=== PATIENT | male | born 1980 | race Caucasian/White ===

== ENCOUNTER → 2017-01-08 | Outpatient (REF) | payer SELFPAY ==
[2017-01-08 18:07] LABS: ALBUMIN 3.7 GM/DL (3.2-5.2); ALBUMIN/GLOBULIN RATIO 0.95 (1.00-1.93); ALKALINE PHOSPHATASE 71 U/L (45-117); ALT/SGPT 24 U/L (12-78); ANION GAP 7 MEQ/L (8-16); AST/SGOT 15 U/L (15-37); BILIRUBIN,TOTAL 0.9 MG/DL (0.2-1.0); BLOOD UREA NITROGEN 18 MG/DL (7-18); CALCIUM LEVEL 9.2 MG/DL (8.5-10.1); CARBON DIOXIDE LEVEL 29 MEQ/L (21-32); CHLORIDE LEVEL 96 MEQ/L (98-107); CHOLESTEROL LEVEL 204 MG/DL (<200); CREATININE FOR GFR 1.25 MG/DL (0.70-1.30); GLOMERULAR FILTRATION RATE > 60.0 (>60); SODIUM LEVEL 132 MEQ/L (136-145); TOTAL PROTEIN 7.6 GM/DL (6.4-8.2); TRIGLYCERIDES LEVEL 128 MG/DL (<150)
[2017-01-08 18:24] LABS: GLUCOSE, FASTING 666 MG/DL (70-105); POTASSIUM SERUM 5.7 MEQ/L (3.5-5.1)
== END ==
LOC: M LAB REF 16:12
PROVIDERS: ATTEND Family Medicine Addiction Medicine
DX: E10.621 Type 1 diabetes mellitus with foot ulcer (principal)

== ENCOUNTER → 2017-01-27 | Outpatient (REF) | payer SELFPAY ==
[2017-01-27 18:34] LABS: ANION GAP 11 MEQ/L (8-16); BLOOD UREA NITROGEN 18 MG/DL (7-18); CALCIUM LEVEL 9.5 MG/DL (8.5-10.1); CARBON DIOXIDE LEVEL 28 MEQ/L (21-32); CHLORIDE LEVEL 86 MEQ/L (98-107); GLOMERULAR FILTRATION RATE > 60.0 (>60); POTASSIUM SERUM 5.1 MEQ/L (3.5-5.1); SODIUM LEVEL 125 MEQ/L (136-145)
[2017-01-27 18:41] LABS: GLUCOSE, FASTING 675 MG/DL (70-105)
== END ==
LOC: M LAB REF 17:37
PROVIDERS: ATTEND Family Medicine Addiction Medicine
DX: I10 Essential (primary) hypertension (principal)

== ENCOUNTER → 2017-01-28 | Outpatient (REF) | payer SELFPAY | LOC: M LAB REF 11:30 | PROVIDERS: ATTEND Surgery | DX: E10.621 Type 1 diabetes mellitus with foot ulcer (principal) ==

== ENCOUNTER → 2017-02-01 | Outpatient (CLI) | payer SELFPAY ==
--- NOTE | 2017-02-02 02:47 | REP ---
Clinical: Ulceration with history of diabetes mellitus. Technique: Post traumatic arthritic degenerative changes at the ankle noted including prior orthopedic fixation. Joint spaces through the foot are relatively intact and normal for age. No periosteal reaction noted. Surrounding soft tissues are grossly unremarkable. Impression: 1. 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 2. Remainder of the foot demonstrates relatively normal age appropriate changes. No periosteal reaction to suggest osteomyelitis related to diabetes and ulceration. Signed by Austin Alves MD 02/02/2017 02:38 A
== END ==
LOC: M RAD 15:45
PROVIDERS: ATTEND Surgery
DX: E10.621 Type 1 diabetes mellitus with foot ulcer (principal)

== ENCOUNTER → 2017-02-04 | Outpatient (REF) | payer SELFPAY ==
[2017-02-04 18:58] LABS: CALCIUM LEVEL 9.6 MG/DL (8.5-10.1); CREATININE FOR GFR 1.48 MG/DL (0.70-1.30); GLOMERULAR FILTRATION RATE 57.6 (>60); POTASSIUM SERUM 4.3 MEQ/L (3.5-5.1)
== END ==
LOC: M LAB REF 16:28
PROVIDERS: ATTEND Family Medicine Addiction Medicine
DX: N28.9 Disorder of kidney and ureter, unspecified (principal); E11.621 Type 2 diabetes mellitus with foot ulcer; I10 Essential (primary) hypertension

== ENCOUNTER → 2017-03-24 | Outpatient (REF) | payer SELFPAY | LOC: M LAB REF 12:45 | PROVIDERS: ATTEND Internal Medicine Nephrology | DX: N18.3 Chronic kidney disease, stage 3 (moderate) (principal); E11.65 Type 2 diabetes mellitus with hyperglycemia ==

== ENCOUNTER → 2017-03-30 | Outpatient (CLI) | payer SELFPAY ==
--- NOTE | 2017-03-30 14:25 | REP ---
Renal ultrasound: The kidneys are normal size. Right kidney measures 10.4 x 6.8 x 4.2 cm. Left kidney measures 10.9 x 5.2 x 6.8 cm. Renal cortical echogenicity is normal bilaterally. There are are no calculi, masses, cysts or hydronephrosis on the right on the left. Impression: Essentially negative renal ultrasound. Bladder ultrasound: The bladder is adequately distended. No bladder wall polyps or masses identifiable by ultrasound. Impression: Negative bladder ultrasound. Signed by Alexander Davis MD 03/30/2017 02:15 P
== END ==
LOC: M RAD 13:21
PROVIDERS: ATTEND Internal Medicine Nephrology
DX: E11.65 Type 2 diabetes mellitus with hyperglycemia (principal)

== ENCOUNTER → 2017-07-13 | Outpatient (REF) | payer SELFPAY ==
[2017-07-13 14:05] LABS: ALBUMIN 3.9 GM/DL (3.2-5.2); ALBUMIN/GLOBULIN RATIO 1.11 (1.00-1.93); ALKALINE PHOSPHATASE 52 U/L (45-117); ALT/SGPT 27 U/L (12-78); ANION GAP 9 MEQ/L (8-16); AST/SGOT 13 U/L (7-37); BILIRUBIN,TOTAL 1.1 MG/DL (0.2-1.0); BLOOD UREA NITROGEN 14 MG/DL (7-18); CALCIUM LEVEL 9.6 MG/DL (8.5-10.1); CARBON DIOXIDE LEVEL 28 MEQ/L (21-32); CHLORIDE LEVEL 97 MEQ/L (98-107); CHOLESTEROL LEVEL 219 MG/DL (<200); CREATININE FOR GFR 1.23 MG/DL (0.70-1.30); GLOMERULAR FILTRATION RATE > 60.0 (>60); POTASSIUM SERUM 4.7 MEQ/L (3.5-5.1); SODIUM LEVEL 134 MEQ/L (136-145); TOTAL PROTEIN 7.4 GM/DL (6.4-8.2); TRIGLYCERIDES LEVEL 219 MG/DL (<150)
[2017-07-13 14:06] LABS: GLUCOSE, FASTING 522 MG/DL (70-105)
== END ==
LOC: M LAB REF 13:31
PROVIDERS: ATTEND Family Medicine Addiction Medicine
DX: E10.621 Type 1 diabetes mellitus with foot ulcer (principal); L97.509 Non-pressure chronic ulcer of other part of unspecified foot with unspecified severity

== ENCOUNTER → 2017-09-07 | Outpatient (REF) | payer SELFPAY ==
[2017-09-07 14:00] LABS: BASO # 0.1 10^3/uL (0.0-0.2); BASO % 1.1 % (0.0-1.0); EOS # 0.1 10^3/uL (0.0-0.50); EOS % 1.5 % (0.0-3.0); HEMATOCRIT 35.5 % (42.0-52.0); IMMATURE GRANULOCYTE % 0.2 % (0-0); LYMPH % 20.7 % (24.0-44.0); MEAN CORPUSCULAR HEMOGLOBIN 29.3 pg (27.0-33.0); MEAN CORPUSCULAR HGB CONC 33.8 g/dl (32.0-36.5); MEAN CORPUSCULAR VOLUME 86.8 fl (80.0-96.0); MONO # 0.3 10^3/uL (0.0-0.8); MONO % 6.5 % (0.0-5.0); NEUTROPHILS # 3.3 10^3/uL (1.8-7.7); PLATELET COUNT, AUTOMATED 214 10^3/uL (150-450); RED BLOOD COUNT 4.09 10^6/uL (4.30-6.10); RED CELL DISTRIBUTION WIDTH 11.5 % (11.5-14.5); WHITE BLOOD COUNT 4.7 10^3/uL (4.0-10.0)
[2017-09-07 14:22] LABS: PROSTATIC SPECIFIC AG MONITOR 0.27 NG/ML (< 4.0)
[2017-09-07 14:29] LABS: TESTOSTERONE 247 NG/DL (241-827)
== END ==
LOC: M LAB REF 13:42
DX: N52.01 Erectile dysfunction due to arterial insufficiency (principal)

== ENCOUNTER → 2017-10-13 | Outpatient (REF) | payer SELFPAY ==
[2017-10-13 13:29] LABS: TESTOSTERONE 308 NG/DL (241-827)
== END ==
LOC: M LAB REF 12:35
DX: N52.01 Erectile dysfunction due to arterial insufficiency (principal)
CPT/HCPCS: 84403

== ENCOUNTER → 2017-12-03 | Outpatient (REF) | payer SELFPAY ==
[2017-12-03 13:43] LABS: TESTOSTERONE 328 NG/DL (241-827)
== END ==
LOC: M LAB REF 12:35
DX: N52.01 Erectile dysfunction due to arterial insufficiency (principal)

== ENCOUNTER 2017-12-07 15:50 | Inpatient (IN) | payer SELFPAY ==
[2017-12-07] MEDS: ONDANSETRON 4MG/2ML VIAL (J2405) IV (18:28)
[2017-12-07] MEDS: NS 1,000 ML IV ×2 (18:28→22:00)
[2017-12-07] MEDS: MORPHINE 4 MG/ML 1ML VIAL/SYRINGE (J2270) IV ×2 (18:30→22:10)
[2017-12-07 18:41] LABS: BASO % 0.3 % (0.0-1.0); EOS # 0.1 10^3/uL (0.0-0.50); EOS % 0.5 % (0.0-3.0); HEMATOCRIT 33.2 % (42.0-52.0); HEMOGLOBIN 11.2 g/dl (13.5-17.5); IMMATURE GRANULOCYTE % 0.3 % (0-3.0); LYMPH % 8.1 % (24.0-44.0); MEAN CORPUSCULAR HEMOGLOBIN 29.9 pg (27.0-33.0); MEAN CORPUSCULAR HGB CONC 33.7 g/dl (32.0-36.5); MEAN CORPUSCULAR VOLUME 88.8 fl (80.0-96.0); MONO % 8.7 % (0.0-5.0); NEUTROPHILS # 9.7 10^3/uL (1.8-7.7); NEUTROPHILS % 82.1 % (36.0-66.0); PLATELET COUNT, AUTOMATED 284 10^3/uL (150-450); RED BLOOD COUNT 3.74 10^6/uL (4.30-6.10); WHITE BLOOD COUNT 11.8 10^3/uL (4.0-10.0)
[2017-12-07 18:45] LABS: APPEARANCE, URINE CLEAR (CLEAR); BACTERIA, URINE AUTO NEGATIVE (NEGATIVE); BILIRUBIN, URINE AUTO NEGATIVE (NEGATIVE); BLOOD, URINE BLOOD 1+ (NEGATIVE); COLOR, URINE YELLOW (YELLOW); GLUCOSE, URINE (UA) AUTO 3+ mg/dL (NEGATIVE); KETONE, URINE AUTO NEGATIVE (NEGATIVE); LEUKOCYTE ESTERASE, URINE AUTO NEGATIVE (NEGATIVE); NITRITE, URINE AUTO NEGATIVE (NEGATIVE); PROTEIN, URINE AUTO NEGATIVE (NEGATIVE); RBC, URINE AUTO 2 /HPF (0-3); SPECIFIC GRAVITY URINE AUTO 1.016 (1.002-1.035); SQUAMOUS EPITHELIAL CELL UR AU 0 /HPF (0-6); UROBILINOGEN, URINE AUTO 0.2 mg/dL (0.0-2.0); WBC, URINE AUTO 1 /HPF (0-3)
[2017-12-07 19:02] LABS: ANION GAP 6 MEQ/L (8-16); BLOOD UREA NITROGEN 15 MG/DL (7-18); CALCIUM LEVEL 9.3 MG/DL (8.5-10.1); CARBON DIOXIDE LEVEL 29 MEQ/L (21-32); CHLORIDE LEVEL 98 MEQ/L (98-107); CREATININE FOR GFR 1.44 MG/DL (0.70-1.30); GLOMERULAR FILTRATION RATE 59.1 (>60); GLUCOSE, FASTING 392 MG/DL (70-100); POTASSIUM SERUM 4.9 MEQ/L (3.5-5.1); SODIUM LEVEL 133 MEQ/L (136-145)
[2017-12-07 19:05] LABS: LACTIC ACID SEPSIS PROTOCOL 1.4 MMOL/L (0.4-2.0)
[2017-12-07 19:48] LABS: ERYTHROCYTE SEDIMENTATION RATE 68 mm/hr (0-15)
[2017-12-08] MEDS ORDERED: GLUCOSE 4 GM CHEW TABLET PO (01:30)
[2017-12-08] MEDS ORDERED: GLUCAGON FOR INJ 1 MG VIAL (J1610) SC (01:30)
[2017-12-08] MEDS ORDERED: DEXTROSE 50% 50 ML SYRINGE IV (01:30)
[2017-12-08 01:44] LABS: BASO % 0.3 % (0.0-1.0); EOS # 0.1 10^3/uL (0.0-0.50); EOS % 0.8 % (0.0-3.0); HEMATOCRIT 29.2 % (42.0-52.0); HEMOGLOBIN 9.9 g/dl (13.5-17.5); IMMATURE GRANULOCYTE % 0.2 % (0-3.0); LYMPH # 1.3 10^3/uL (1.5-4.5); LYMPH % 14.4 % (24.0-44.0); MEAN CORPUSCULAR HEMOGLOBIN 30.2 pg (27.0-33.0); MEAN CORPUSCULAR HGB CONC 33.9 g/dl (32.0-36.5); MONO # 0.8 10^3/uL (0.0-0.8); MONO % 8.9 % (0.0-5.0); NEUTROPHILS # 6.6 10^3/uL (1.8-7.7); NEUTROPHILS % 75.4 % (36.0-66.0); PLATELET COUNT, AUTOMATED 240 10^3/uL (150-450); RED BLOOD COUNT 3.28 10^6/uL (4.30-6.10); RED CELL DISTRIBUTION WIDTH 11.9 % (11.5-14.5); WHITE BLOOD COUNT 8.8 10^3/uL (4.0-10.0)
[2017-12-08] MEDS: NS 1,000 ML IV ×2 (02:02→11:18)
[2017-12-08] MEDS: GABAPENTIN 300 MG CAP PO ×4 (02:04→20:06)
[2017-12-08] MEDS: VANCOMYCIN HCL 1,000 MG, VIAL MATE ADAPTER 1 EACH in D5W 250 ML IV ×4 (02:04→21:25)
[2017-12-08 02:06] LABS: BEDSIDE GLUCOSE 384 MG/DL (70-105)
[2017-12-08 02:34] LABS: ESTIMATED AVERAGE GLUCOSE 240 MG/DL (60-110)
[2017-12-08 02:38] LABS: LACTIC ACID SEPSIS PROTOCOL 0.8 MMOL/L (0.4-2.0)
[2017-12-08] MEDS: HumaLOG INSULIN (NovoLOG) PER UNIT SC ×5 (02:55→20:31)
[2017-12-08] MEDS: ACETAMINOPHEN TAB 650MG DOSE (2X325MG) PO ×2 (03:01→20:07)
[2017-12-08 03:54] LABS: APPEARANCE, URINE CLEAR (CLEAR); BACTERIA, URINE AUTO NEGATIVE (NEGATIVE); BILIRUBIN, URINE AUTO NEGATIVE (NEGATIVE); BLOOD, URINE BLOOD 1+ (NEGATIVE); COLOR, URINE YELLOW (YELLOW); GLUCOSE, URINE (UA) AUTO 3+ mg/dL (NEGATIVE); KETONE, URINE AUTO TRACE mg/dL (NEGATIVE); LEUKOCYTE ESTERASE, URINE AUTO NEGATIVE (NEGATIVE); NITRITE, URINE AUTO NEGATIVE (NEGATIVE); PROTEIN, URINE AUTO NEGATIVE (NEGATIVE); RBC, URINE AUTO 1 /HPF (0-3); SPECIFIC GRAVITY URINE AUTO 1.016 (1.002-1.035); SQUAMOUS EPITHELIAL CELL UR AU 0 /HPF (0-6); UROBILINOGEN, URINE AUTO 0.2 mg/dL (0.0-2.0); WBC, URINE AUTO 0 /HPF (0-3)
[2017-12-08] MEDS: LevoFLOXacin IV 500 MG in APPROPRIATE DILUENT 1 EA IV (04:13)
[2017-12-08 04:28] LABS: CREATININE, URINE 79.8 MG/DL; MALB URINE SIEMENS 50.9 MG/L; MAU/CREAT RATIO 63.7 MCG/MG (0.0-30.0)
[2017-12-08] MEDS: HEPARIN SOD (PORCINE) 5000 UNITS/ML VIAL SC ×3 (06:15→21:24)
[2017-12-08 08:00] LABS: BASO % 0.4 % (0.0-1.0); EOS # 0.1 10^3/uL (0.0-0.50); HEMATOCRIT 30.2 % (42.0-52.0); HEMOGLOBIN 10.1 g/dl (13.5-17.5); IMMATURE GRANULOCYTE % 0.4 % (0-3.0); LYMPH # 0.8 10^3/uL (1.5-4.5); LYMPH % 9.8 % (24.0-44.0); MEAN CORPUSCULAR HGB CONC 33.4 g/dl (32.0-36.5); MEAN CORPUSCULAR VOLUME 89.6 fl (80.0-96.0); MONO # 0.8 10^3/uL (0.0-0.8); MONO % 9.3 % (0.0-5.0); NEUTROPHILS # 6.5 10^3/uL (1.8-7.7); NEUTROPHILS % 79.1 % (36.0-66.0); PLATELET COUNT, AUTOMATED 240 10^3/uL (150-450); RED BLOOD COUNT 3.37 10^6/uL (4.30-6.10); RED CELL DISTRIBUTION WIDTH 11.9 % (11.5-14.5); WHITE BLOOD COUNT 8.3 10^3/uL (4.0-10.0)
[2017-12-08 08:24] LABS: ANION GAP 5 MEQ/L (8-16); BLOOD UREA NITROGEN 11 MG/DL (7-18); CALCIUM LEVEL 8.6 MG/DL (8.5-10.1); CARBON DIOXIDE LEVEL 29 MEQ/L (21-32); CHLORIDE LEVEL 102 MEQ/L (98-107); CREATININE FOR GFR 1.03 MG/DL (0.70-1.30); GLOMERULAR FILTRATION RATE > 60.0 (>60); GLUCOSE, FASTING 285 MG/DL (70-100); POTASSIUM SERUM 5.1 MEQ/L (3.5-5.1); SODIUM LEVEL 136 MEQ/L (136-145)
[2017-12-08 08:39] LABS: BEDSIDE GLUCOSE 263 MG/DL (70-105)
[2017-12-08] MEDS: OMEPRAZOLE 20 MG CAP PO (08:50)
[2017-12-08] MEDS: LISINOPRIL 10 MG TAB PO (08:51)
[2017-12-08] MEDS: LEVEMIR (INSULIN DETEMIR) 1 UNITS/0.01ML SC (08:51)
[2017-12-08] MEDS: PERCOCET 5MG/325MG TAB PO ×3 (09:29→21:25)
[2017-12-08 11:41] LABS: BEDSIDE GLUCOSE 278 MG/DL (70-105)
[2017-12-08 17:01] LABS: BEDSIDE GLUCOSE 165 MG/DL (70-105)
[2017-12-08] MEDS: ONDANSETRON 4 MG TAB (S0181) PO (20:06)
[2017-12-08 20:07] LABS: BEDSIDE GLUCOSE 161 MG/DL (70-105)
[2017-12-08 21:36] LABS: VANCOMYCIN LEVEL TROUGH 17.5 UG/ML (10.0-20.0)
[2017-12-08] MEDS: CEPACOL LOZENGE PO (22:24)
[2017-12-09] MEDS: LevoFLOXacin IV 500 MG in APPROPRIATE DILUENT 1 EA IV (03:48)
[2017-12-09] MEDS: PERCOCET 5MG/325MG TAB PO ×3 (03:49→20:57)
[2017-12-09] MEDS: VANCOMYCIN HCL 1,000 MG, VIAL MATE ADAPTER 1 EACH in D5W 250 ML IV ×3 (05:04→22:17)
[2017-12-09] MEDS: HEPARIN SOD (PORCINE) 5000 UNITS/ML VIAL SC ×3 (05:04→22:17)
[2017-12-09 06:19] LABS: BASO % 0.4 % (0.0-1.0); EOS # 0.1 10^3/uL (0.0-0.50); EOS % 1.2 % (0.0-3.0); HEMATOCRIT 28.2 % (42.0-52.0); HEMOGLOBIN 9.5 g/dl (13.5-17.5); IMMATURE GRANULOCYTE % 0.4 % (0-3.0); LYMPH # 0.8 10^3/uL (1.5-4.5); MEAN CORPUSCULAR HEMOGLOBIN 29.6 pg (27.0-33.0); MEAN CORPUSCULAR HGB CONC 33.7 g/dl (32.0-36.5); MEAN CORPUSCULAR VOLUME 87.9 fl (80.0-96.0); MONO # 0.7 10^3/uL (0.0-0.8); MONO % 8.7 % (0.0-5.0); NEUTROPHILS # 6.8 10^3/uL (1.8-7.7); NEUTROPHILS % 80.3 % (36.0-66.0); PLATELET COUNT, AUTOMATED 223 10^3/uL (150-450); RED BLOOD COUNT 3.21 10^6/uL (4.30-6.10); RED CELL DISTRIBUTION WIDTH 11.8 % (11.5-14.5); WHITE BLOOD COUNT 8.5 10^3/uL (4.0-10.0)
[2017-12-09 06:46] LABS: ALBUMIN 2.6 GM/DL (3.2-5.2); ALBUMIN/GLOBULIN RATIO 0.63 (1.00-1.93); ALKALINE PHOSPHATASE 88 U/L (45-117); ALT/SGPT 20 U/L (12-78); ANION GAP 8 MEQ/L (8-16); AST/SGOT 12 U/L (7-37); BILIRUBIN,TOTAL 0.8 MG/DL (0.2-1.0); BLOOD UREA NITROGEN 8 MG/DL (7-18); CALCIUM LEVEL 8.4 MG/DL (8.5-10.1); CARBON DIOXIDE LEVEL 28 MEQ/L (21-32); CHLORIDE LEVEL 99 MEQ/L (98-107); CREATININE FOR GFR 1.08 MG/DL (0.70-1.30); GLOMERULAR FILTRATION RATE > 60.0 (>60); GLUCOSE, FASTING 337 MG/DL (70-100); MAGNESIUM LEVEL 1.6 MG/DL (1.8-2.4); PHOSPHORUS LEVEL 3.7 MG/DL (2.5-4.9); POTASSIUM SERUM 4.3 MEQ/L (3.5-5.1); SODIUM LEVEL 135 MEQ/L (136-145); TOTAL PROTEIN 6.7 GM/DL (6.4-8.2)
[2017-12-09] MEDS: GABAPENTIN 300 MG CAP PO ×3 (08:53→20:56)
[2017-12-09] MEDS: OMEPRAZOLE 20 MG CAP PO (08:53)
[2017-12-09] MEDS: LISINOPRIL 10 MG TAB PO (08:54)
[2017-12-09] MEDS: LEVEMIR (INSULIN DETEMIR) 1 UNITS/0.01ML SC (08:55)
[2017-12-09] MEDS: HumaLOG INSULIN (NovoLOG) PER UNIT SC ×4 (08:57→20:44)
[2017-12-09] MEDS: MAG SULF 1GM/100ML (MAG RUN) 1 GM in APPROPRIATE DILUENT 1 EA IV (08:58)
[2017-12-09 11:54] LABS: BEDSIDE GLUCOSE 270 MG/DL (70-105)
[2017-12-09] MEDS ORDERED: PROHANCE 279.3MG/ML 15ML VIAL (A9576) As Ordered (12:49)
[2017-12-09 16:52] LABS: BEDSIDE GLUCOSE 90 MG/DL (70-105)
[2017-12-09] MEDS: ACETAMINOPHEN TAB 650MG DOSE (2X325MG) PO (17:27)
[2017-12-09 20:30] LABS: BEDSIDE GLUCOSE 138 MG/DL (70-105)
[2017-12-10] MEDS: LevoFLOXacin IV 500 MG in APPROPRIATE DILUENT 1 EA IV (03:39)
[2017-12-10] MEDS: VANCOMYCIN HCL 1,000 MG, VIAL MATE ADAPTER 1 EACH in D5W 250 ML IV ×3 (05:42→21:37)
[2017-12-10] MEDS: HEPARIN SOD (PORCINE) 5000 UNITS/ML VIAL SC ×3 (05:42→21:37)
[2017-12-10 06:06] LABS: BASO % 0.3 % (0.0-1.0); EOS # 0.1 10^3/uL (0.0-0.50); EOS % 1.1 % (0.0-3.0); HEMATOCRIT 27.8 % (42.0-52.0); HEMOGLOBIN 9.5 g/dl (13.5-17.5); IMMATURE GRANULOCYTE % 0.3 % (0-3.0); LYMPH # 0.7 10^3/uL (1.5-4.5); LYMPH % 10.2 % (24.0-44.0); MEAN CORPUSCULAR HGB CONC 34.2 g/dl (32.0-36.5); MEAN CORPUSCULAR VOLUME 87.7 fl (80.0-96.0); MONO # 0.6 10^3/uL (0.0-0.8); MONO % 9.1 % (0.0-5.0); NEUTROPHILS # 5.1 10^3/uL (1.8-7.7); PLATELET COUNT, AUTOMATED 242 10^3/uL (150-450); RED BLOOD COUNT 3.17 10^6/uL (4.30-6.10); RED CELL DISTRIBUTION WIDTH 11.6 % (11.5-14.5); WHITE BLOOD COUNT 6.5 10^3/uL (4.0-10.0)
[2017-12-10] MEDS: PERCOCET 5MG/325MG TAB PO ×3 (06:15→19:02)
[2017-12-10 06:20] LABS: ALBUMIN 2.7 GM/DL (3.2-5.2); ALBUMIN/GLOBULIN RATIO 0.61 (1.00-1.93); ALKALINE PHOSPHATASE 93 U/L (45-117); ALT/SGPT 17 U/L (12-78); ANION GAP 6 MEQ/L (8-16); AST/SGOT 12 U/L (7-37); BILIRUBIN,TOTAL 0.5 MG/DL (0.2-1.0); BLOOD UREA NITROGEN 11 MG/DL (7-18); CALCIUM LEVEL 8.9 MG/DL (8.5-10.1); CARBON DIOXIDE LEVEL 29 MEQ/L (21-32); CHLORIDE LEVEL 96 MEQ/L (98-107); CREATININE FOR GFR 1.15 MG/DL (0.70-1.30); GLOMERULAR FILTRATION RATE > 60.0 (>60); POTASSIUM SERUM 4.6 MEQ/L (3.5-5.1); SODIUM LEVEL 131 MEQ/L (136-145); TOTAL PROTEIN 7.1 GM/DL (6.4-8.2)
[2017-12-10 06:27] LABS: GLUCOSE, FASTING 429 MG/DL (70-100)
[2017-12-10] MEDS: HumaLOG INSULIN (NovoLOG) PER UNIT SC ×4 (07:26→20:32)
[2017-12-10] MEDS: OMEPRAZOLE 20 MG CAP PO (07:27)
[2017-12-10] MEDS: GABAPENTIN 300 MG CAP PO ×3 (07:27→21:37)
[2017-12-10] MEDS: LISINOPRIL 10 MG TAB PO (07:27)
[2017-12-10] MEDS: LEVEMIR (INSULIN DETEMIR) 1 UNITS/0.01ML SC (07:28)
[2017-12-10] MEDS: NS 1,000 ML IV ×3 (08:15→16:15)
[2017-12-10 11:50] LABS: BEDSIDE GLUCOSE 261 MG/DL (70-105)
[2017-12-10 12:02] LABS: MAGNESIUM LEVEL 2.2 MG/DL (1.8-2.4)
[2017-12-10 17:00] LABS: BEDSIDE GLUCOSE 225 MG/DL (70-105)
[2017-12-10 20:39] LABS: BEDSIDE GLUCOSE 181 MG/DL (70-105)
[2017-12-11] MEDS: LevoFLOXacin IV 500 MG in APPROPRIATE DILUENT 1 EA IV (03:27)
[2017-12-11] MEDS: PERCOCET 5MG/325MG TAB PO ×3 (04:37→21:06)
[2017-12-11 05:06] LABS: BASO % 0.5 % (0.0-1.0); EOS # 0.1 10^3/uL (0.0-0.50); EOS % 1.5 % (0.0-3.0); HEMATOCRIT 26.4 % (42.0-52.0); HEMOGLOBIN 9.2 g/dl (13.5-17.5); IMMATURE GRANULOCYTE % 0.2 % (0-3.0); LYMPH # 0.9 10^3/uL (1.5-4.5); LYMPH % 14.3 % (24.0-44.0); MEAN CORPUSCULAR HEMOGLOBIN 30.4 pg (27.0-33.0); MEAN CORPUSCULAR HGB CONC 34.8 g/dl (32.0-36.5); MEAN CORPUSCULAR VOLUME 87.1 fl (80.0-96.0); MONO # 0.7 10^3/uL (0.0-0.8); MONO % 11.1 % (0.0-5.0); NEUTROPHILS # 4.4 10^3/uL (1.8-7.7); NEUTROPHILS % 72.4 % (36.0-66.0); PLATELET COUNT, AUTOMATED 247 10^3/uL (150-450); RED BLOOD COUNT 3.03 10^6/uL (4.30-6.10); RED CELL DISTRIBUTION WIDTH 11.6 % (11.5-14.5)
[2017-12-11 05:28] LABS: ALBUMIN 2.8 GM/DL (3.2-5.2); ALBUMIN/GLOBULIN RATIO 0.72 (1.00-1.93); ALKALINE PHOSPHATASE 133 U/L (45-117); ALT/SGPT 33 U/L (12-78); ANION GAP 8 MEQ/L (8-16); AST/SGOT 53 U/L (7-37); BILIRUBIN,TOTAL 0.6 MG/DL (0.2-1.0); BLOOD UREA NITROGEN 7 MG/DL (7-18); CALCIUM LEVEL 8.5 MG/DL (8.5-10.1); CARBON DIOXIDE LEVEL 27 MEQ/L (21-32); CHLORIDE LEVEL 98 MEQ/L (98-107); CREATININE FOR GFR 1.09 MG/DL (0.70-1.30); GLOMERULAR FILTRATION RATE > 60.0 (>60); GLUCOSE, FASTING 343 MG/DL (70-100); POTASSIUM SERUM 4.5 MEQ/L (3.5-5.1); SODIUM LEVEL 133 MEQ/L (136-145); TOTAL PROTEIN 6.7 GM/DL (6.4-8.2); VANCOMYCIN LEVEL TROUGH 19.9 UG/ML (10.0-20.0)
[2017-12-11] MEDS: VANCOMYCIN HCL 1,000 MG, VIAL MATE ADAPTER 1 EACH in D5W 250 ML IV ×3 (05:35→21:48)
[2017-12-11] MEDS: HEPARIN SOD (PORCINE) 5000 UNITS/ML VIAL SC ×3 (05:35→21:06)
[2017-12-11] MEDS: ONDANSETRON 4 MG TAB (S0181) PO ×2 (05:35→21:06)
[2017-12-11] MEDS: SENNA 8.6 MG TAB (SENOKOT) PO (06:57)
[2017-12-11 07:01] LABS: BEDSIDE GLUCOSE 413 MG/DL (70-105)
[2017-12-11] MEDS: HumaLOG INSULIN (NovoLOG) PER UNIT SC ×4 (08:07→20:17)
[2017-12-11] MEDS: LISINOPRIL 10 MG TAB PO (08:08)
[2017-12-11] MEDS: OMEPRAZOLE 20 MG CAP PO (08:08)
[2017-12-11] MEDS: GABAPENTIN 300 MG CAP PO ×3 (08:08→21:05)
[2017-12-11] MEDS: LEVEMIR (INSULIN DETEMIR) 1 UNITS/0.01ML SC (08:08)
[2017-12-11 11:50] LABS: BEDSIDE GLUCOSE 273 MG/DL (70-105)
[2017-12-11 16:54] LABS: BEDSIDE GLUCOSE 197 MG/DL (70-105)
[2017-12-12] MEDS: LevoFLOXacin IV 500 MG in APPROPRIATE DILUENT 1 EA IV (03:29)
[2017-12-12] MEDS: HEPARIN SOD (PORCINE) 5000 UNITS/ML VIAL SC ×3 (05:43→21:17)
[2017-12-12] MEDS: VANCOMYCIN HCL 1,000 MG, VIAL MATE ADAPTER 1 EACH in D5W 250 ML IV ×2 (05:44→21:18)
[2017-12-12 05:55] LABS: BASO % 0.3 % (0.0-1.0); EOS # 0.1 10^3/uL (0.0-0.50); EOS % 1.6 % (0.0-3.0); HEMATOCRIT 25.2 % (42.0-52.0); HEMOGLOBIN 8.6 g/dl (13.5-17.5); IMMATURE GRANULOCYTE % 0.2 % (0-3.0); LYMPH # 0.9 10^3/uL (1.5-4.5); LYMPH % 15.4 % (24.0-44.0); MEAN CORPUSCULAR HEMOGLOBIN 29.9 pg (27.0-33.0); MEAN CORPUSCULAR HGB CONC 34.1 g/dl (32.0-36.5); MEAN CORPUSCULAR VOLUME 87.5 fl (80.0-96.0); MONO # 0.7 10^3/uL (0.0-0.8); MONO % 12.6 % (0.0-5.0); NEUTROPHILS % 69.9 % (36.0-66.0); PLATELET COUNT, AUTOMATED 232 10^3/uL (150-450); RED BLOOD COUNT 2.88 10^6/uL (4.30-6.10); RED CELL DISTRIBUTION WIDTH 11.6 % (11.5-14.5); WHITE BLOOD COUNT 5.8 10^3/uL (4.0-10.0)
[2017-12-12] MEDS: PERCOCET 5MG/325MG TAB PO ×3 (05:55→21:42)
[2017-12-12 06:23] LABS: ALBUMIN 2.5 GM/DL (3.2-5.2); ALBUMIN/GLOBULIN RATIO 0.63 (1.00-1.93); ALKALINE PHOSPHATASE 113 U/L (45-117); ALT/SGPT 28 U/L (12-78); ANION GAP 7 MEQ/L (8-16); AST/SGOT 25 U/L (7-37); BILIRUBIN,TOTAL 0.6 MG/DL (0.2-1.0); BLOOD UREA NITROGEN 10 MG/DL (7-18); CALCIUM LEVEL 8.6 MG/DL (8.5-10.1); CARBON DIOXIDE LEVEL 27 MEQ/L (21-32); CHLORIDE LEVEL 97 MEQ/L (98-107); CREATININE FOR GFR 1.25 MG/DL (0.70-1.30); GLOMERULAR FILTRATION RATE > 60.0 (>60); GLUCOSE, FASTING 383 MG/DL (70-100); POTASSIUM SERUM 4.5 MEQ/L (3.5-5.1); SODIUM LEVEL 131 MEQ/L (136-145); TOTAL PROTEIN 6.5 GM/DL (6.4-8.2)
[2017-12-12] MEDS: HumaLOG INSULIN (NovoLOG) PER UNIT SC ×4 (08:14→21:00)
[2017-12-12] MEDS: NS 1,000 ML IV (08:15)
[2017-12-12] MEDS: GABAPENTIN 300 MG CAP PO ×3 (08:16→21:17)
[2017-12-12] MEDS: OMEPRAZOLE 20 MG CAP PO (08:16)
[2017-12-12] MEDS: LISINOPRIL 10 MG TAB PO ×2 (08:16→13:34)
[2017-12-12] MEDS: LEVEMIR (INSULIN DETEMIR) 1 UNITS/0.01ML SC (08:16)
[2017-12-12 09:35] LABS: BEDSIDE GLUCOSE 132 MG/DL (70-105)
[2017-12-12 10:16] LABS: VANCOMYCIN LEVEL TROUGH 25.4 UG/ML (10.0-20.0)
[2017-12-12] MEDS ORDERED: MIDAZOLAM INJ 2 MG/2 ML VIAL (J2250) As Ordered (14:57)
[2017-12-12] MEDS ORDERED: LIDOCAINE 2% INJ 100 MG/5 ML SDV (FOR ANES.) As Ordered (14:57)
[2017-12-12] MEDS ORDERED: PROPOFOL 200 MG/20 ML VIAL As Ordered (14:57)
[2017-12-12] MEDS ORDERED: fentaNYL 100 MCG/2 ML INJECTION (J3010) As Ordered (14:57)
[2017-12-12] MEDS: LIDOCAINE 1% SDV INJ 30 ML VIAL As Ordered (14:59)
[2017-12-12] MEDS: BUPIVACAINE HCL 0.5% 30 ML VIAL As Ordered (14:59)
[2017-12-12] MEDS ORDERED: ONDANSETRON 4MG/2ML VIAL (J2405) IV (16:00)
[2017-12-12] MEDS ORDERED: fentaNYL 100 MCG/2 ML INJECTION (J3010) IV (16:00)
[2017-12-12] MEDS ORDERED: PERCOCET 5MG/325MG TAB PO (16:00)
[2017-12-12] MEDS: LR 1,000 ML IV (16:00)
[2017-12-12 16:51] LABS: BEDSIDE GLUCOSE 131 MG/DL (70-105)
[2017-12-12] MEDS: ONDANSETRON 4 MG TAB (S0181) PO (17:21)
[2017-12-12 21:37] LABS: BEDSIDE GLUCOSE 186 MG/DL (70-105)
[2017-12-12] MEDS: METOPROLOL TART 25 MG TABLET PO (21:40)
[2017-12-13] MEDS: LevoFLOXacin IV 500 MG in APPROPRIATE DILUENT 1 EA IV (04:42)
[2017-12-13] MEDS: HEPARIN SOD (PORCINE) 5000 UNITS/ML VIAL SC ×3 (05:50→21:15)
[2017-12-13] MEDS: PERCOCET 5MG/325MG TAB PO ×3 (05:51→19:46)
[2017-12-13 07:03] LABS: BASO % 0.3 % (0.0-1.0); EOS # 0.1 10^3/uL (0.0-0.50); EOS % 1.5 % (0.0-3.0); HEMOGLOBIN 8.3 g/dl (13.5-17.5); IMMATURE GRANULOCYTE % 0.3 % (0-3.0); LYMPH # 0.7 10^3/uL (1.5-4.5); LYMPH % 12.5 % (24.0-44.0); MEAN CORPUSCULAR HEMOGLOBIN 30.2 pg (27.0-33.0); MEAN CORPUSCULAR HGB CONC 34.6 g/dl (32.0-36.5); MEAN CORPUSCULAR VOLUME 87.3 fl (80.0-96.0); MONO # 0.7 10^3/uL (0.0-0.8); MONO % 11.7 % (0.0-5.0); NEUTROPHILS # 4.3 10^3/uL (1.8-7.7); NEUTROPHILS % 73.7 % (36.0-66.0); PLATELET COUNT, AUTOMATED 279 10^3/uL (150-450); RED BLOOD COUNT 2.75 10^6/uL (4.30-6.10); RED CELL DISTRIBUTION WIDTH 11.9 % (11.5-14.5); WHITE BLOOD COUNT 5.8 10^3/uL (4.0-10.0)
[2017-12-13 07:24] LABS: ALBUMIN 2.7 GM/DL (3.2-5.2); ALBUMIN/GLOBULIN RATIO 0.69 (1.00-1.93); ALKALINE PHOSPHATASE 133 U/L (45-117); ALT/SGPT 30 U/L (12-78); ANION GAP 7 MEQ/L (8-16); AST/SGOT 31 U/L (7-37); BILIRUBIN,TOTAL 0.4 MG/DL (0.2-1.0); BLOOD UREA NITROGEN 10 MG/DL (7-18); C REACTIVE PROTEIN QUANTITATIV 9.79 MG/DL (0.00-0.30); CALCIUM LEVEL 8.7 MG/DL (8.5-10.1); CARBON DIOXIDE LEVEL 27 MEQ/L (21-32); CHLORIDE LEVEL 101 MEQ/L (98-107); CREATININE FOR GFR 1.37 MG/DL (0.70-1.30); GLOMERULAR FILTRATION RATE > 60.0 (>60); GLUCOSE, FASTING 190 MG/DL (70-100); POTASSIUM SERUM 4.4 MEQ/L (3.5-5.1); SODIUM LEVEL 135 MEQ/L (136-145); TOTAL PROTEIN 6.6 GM/DL (6.4-8.2)
[2017-12-13 08:04] LABS: BEDSIDE GLUCOSE 460 MG/DL (70-105)
[2017-12-13] MEDS ORDERED: LISINOPRIL 20 MG TAB PO (09:00)
[2017-12-13] MEDS: VANCOMYCIN HCL 1,000 MG, VIAL MATE ADAPTER 1 EACH in D5W 250 ML IV ×2 (09:06→21:15)
[2017-12-13] MEDS: OMEPRAZOLE 20 MG CAP PO (09:07)
[2017-12-13] MEDS: GABAPENTIN 300 MG CAP PO ×3 (09:07→21:14)
[2017-12-13] MEDS: NS 1,000 ML IV (09:07)
[2017-12-13] MEDS: LEVEMIR (INSULIN DETEMIR) 1 UNITS/0.01ML SC (09:08)
[2017-12-13] MEDS: HumaLOG INSULIN (NovoLOG) PER UNIT SC ×4 (09:09→21:18)
[2017-12-13 12:14] LABS: BEDSIDE GLUCOSE 318 MG/DL (70-105)
[2017-12-13 18:13] LABS: BEDSIDE GLUCOSE 98 MG/DL (70-105)
[2017-12-13 21:58] LABS: BEDSIDE GLUCOSE 162 MG/DL (70-105)
[2017-12-14] MEDS: ONDANSETRON 4 MG TAB (S0181) PO (03:40)
[2017-12-14] MEDS: PERCOCET 5MG/325MG TAB PO ×3 (03:41→20:13)
[2017-12-14] MEDS: LevoFLOXacin IV 500 MG in APPROPRIATE DILUENT 1 EA IV (04:50)
[2017-12-14] MEDS: HEPARIN SOD (PORCINE) 5000 UNITS/ML VIAL SC ×2 (04:51→13:37)
[2017-12-14 08:18] LABS: BASO % 0.6 % (0.0-1.0); EOS # 0.1 10^3/uL (0.0-0.50); EOS % 1.7 % (0.0-3.0); HEMOGLOBIN 8.7 g/dl (13.5-17.5); IMMATURE GRANULOCYTE % 0.2 % (0-3.0); LYMPH # 0.7 10^3/uL (1.5-4.5); LYMPH % 14.3 % (24.0-44.0); MEAN CORPUSCULAR HEMOGLOBIN 29.7 pg (27.0-33.0); MEAN CORPUSCULAR HGB CONC 33.5 g/dl (32.0-36.5); MEAN CORPUSCULAR VOLUME 88.7 fl (80.0-96.0); MONO # 0.6 10^3/uL (0.0-0.8); MONO % 12.9 % (0.0-5.0); NEUTROPHILS # 3.4 10^3/uL (1.8-7.7); NEUTROPHILS % 70.3 % (36.0-66.0); PLATELET COUNT, AUTOMATED 309 10^3/uL (150-450); RED BLOOD COUNT 2.93 10^6/uL (4.30-6.10); RED CELL DISTRIBUTION WIDTH 11.9 % (11.5-14.5); WHITE BLOOD COUNT 4.8 10^3/uL (4.0-10.0)
[2017-12-14 08:36] LABS: ALBUMIN 2.5 GM/DL (3.2-5.2); ALBUMIN/GLOBULIN RATIO 0.66 (1.00-1.93); ALKALINE PHOSPHATASE 128 U/L (45-117); ALT/SGPT 30 U/L (12-78); ANION GAP 9 MEQ/L (8-16); AST/SGOT 28 U/L (7-37); BILIRUBIN,TOTAL 0.3 MG/DL (0.2-1.0); BLOOD UREA NITROGEN 8 MG/DL (7-18); CALCIUM LEVEL 8.3 MG/DL (8.5-10.1); CARBON DIOXIDE LEVEL 28 MEQ/L (21-32); CHLORIDE LEVEL 102 MEQ/L (98-107); CREATININE FOR GFR 1.39 MG/DL (0.70-1.30); GLOMERULAR FILTRATION RATE > 60.0 (>60); GLUCOSE, FASTING 176 MG/DL (70-100); POTASSIUM SERUM 4.4 MEQ/L (3.5-5.1); SODIUM LEVEL 139 MEQ/L (136-145); TOTAL PROTEIN 6.3 GM/DL (6.4-8.2); VANCOMYCIN LEVEL TROUGH 18.9 UG/ML (10.0-20.0)
[2017-12-14] MEDS: LEVEMIR (INSULIN DETEMIR) 1 UNITS/0.01ML SC (08:58)
[2017-12-14] MEDS: OMEPRAZOLE 20 MG CAP PO (08:58)
[2017-12-14] MEDS: GABAPENTIN 300 MG CAP PO ×3 (08:59→21:05)
[2017-12-14] MEDS: HumaLOG INSULIN (NovoLOG) PER UNIT SC ×4 (08:59→21:00)
[2017-12-14] MEDS: VANCOMYCIN HCL 1,000 MG, VIAL MATE ADAPTER 1 EACH in D5W 250 ML IV ×2 (09:00→21:05)
[2017-12-14 13:12] LABS: BEDSIDE GLUCOSE 171 MG/DL (70-105)
[2017-12-14] MEDS: NS 1,000 ML IV (15:16)
[2017-12-14 17:53] LABS: BEDSIDE GLUCOSE 70 MG/DL (70-105)
[2017-12-14 22:42] LABS: BEDSIDE GLUCOSE 149 MG/DL (70-105)
[2017-12-15] MEDS: HEPARIN SOD (PORCINE) 5000 UNITS/ML VIAL SC (00:13)
[2017-12-15 06:54] LABS: BASO % 0.5 % (0.0-1.0); EOS # 0.1 10^3/uL (0.0-0.50); EOS % 1.2 % (0.0-3.0); HEMOGLOBIN 9.5 g/dl (13.5-17.5); IMMATURE GRANULOCYTE % 0.3 % (0-3.0); LYMPH # 0.8 10^3/uL (1.5-4.5); MEAN CORPUSCULAR HGB CONC 33.9 g/dl (32.0-36.5); MEAN CORPUSCULAR VOLUME 88.3 fl (80.0-96.0); MONO # 0.6 10^3/uL (0.0-0.8); MONO % 10.6 % (0.0-5.0); NEUTROPHILS # 4.3 10^3/uL (1.8-7.7); NEUTROPHILS % 74.4 % (36.0-66.0); PLATELET COUNT, AUTOMATED 373 10^3/uL (150-450); RED BLOOD COUNT 3.17 10^6/uL (4.30-6.10); RED CELL DISTRIBUTION WIDTH 11.9 % (11.5-14.5); WHITE BLOOD COUNT 5.8 10^3/uL (4.0-10.0)
[2017-12-15] MEDS: PERCOCET 5MG/325MG TAB PO ×3 (06:57→20:37)
[2017-12-15 07:17] LABS: ALBUMIN 2.4 GM/DL (3.2-5.2); ALBUMIN/GLOBULIN RATIO 0.55 (1.00-1.93); ALKALINE PHOSPHATASE 118 U/L (45-117); ALT/SGPT 30 U/L (12-78); ANION GAP 5 MEQ/L (8-16); AST/SGOT 25 U/L (7-37); BILIRUBIN,TOTAL 0.3 MG/DL (0.2-1.0); BLOOD UREA NITROGEN 9 MG/DL (7-18); C REACTIVE PROTEIN QUANTITATIV 5.94 MG/DL (0.00-0.30); CALCIUM LEVEL 8.6 MG/DL (8.5-10.1); CARBON DIOXIDE LEVEL 29 MEQ/L (21-32); CHLORIDE LEVEL 105 MEQ/L (98-107); CREATININE FOR GFR 1.44 MG/DL (0.70-1.30); GLOMERULAR FILTRATION RATE 59.1 (>60); GLUCOSE, FASTING 213 MG/DL (70-100); POTASSIUM SERUM 4.3 MEQ/L (3.5-5.1); SODIUM LEVEL 139 MEQ/L (136-145); TOTAL PROTEIN 6.8 GM/DL (6.4-8.2)
[2017-12-15] MEDS: HumaLOG INSULIN (NovoLOG) PER UNIT SC ×4 (07:30→20:35)
[2017-12-15] MEDS ORDERED: LEVEMIR (INSULIN DETEMIR) 1 UNITS/0.01ML SC (09:00)
[2017-12-15] MEDS: LevoFLOXacin 500 MG TABLET PO (09:37)
[2017-12-15] MEDS: OMEPRAZOLE 20 MG CAP PO (09:37)
[2017-12-15] MEDS: GABAPENTIN 300 MG CAP PO ×3 (09:37→20:37)
[2017-12-15] MEDS: LEVEMIR (INSULIN DETEMIR) 1 UNITS/0.01ML SC (09:39)
[2017-12-15] MEDS: NS 1,000 ML IV (09:45)
[2017-12-15 11:18] LABS: APPEARANCE, URINE CLEAR (CLEAR); BACTERIA, URINE AUTO NEGATIVE (NEGATIVE); BILIRUBIN, URINE AUTO NEGATIVE (NEGATIVE); BLOOD, URINE BLOOD NEGATIVE (NEGATIVE); COLOR, URINE STRAW (YELLOW); GLUCOSE, URINE (UA) AUTO 3+ mg/dL (NEGATIVE); KETONE, URINE AUTO 1+ mg/dL (NEGATIVE); LEUKOCYTE ESTERASE, URINE AUTO NEGATIVE (NEGATIVE); NITRITE, URINE AUTO NEGATIVE (NEGATIVE); PROTEIN, URINE AUTO NEGATIVE (NEGATIVE); RBC, URINE AUTO 4 /HPF (0-3); SPECIFIC GRAVITY URINE AUTO 1.006 (1.002-1.035); SQUAMOUS EPITHELIAL CELL UR AU 0 /HPF (0-6); UROBILINOGEN, URINE AUTO 0.2 mg/dL (0.0-2.0); WBC, URINE AUTO 1 /HPF (0-3)
[2017-12-15] MEDS: LINEZOLID 600MG TABLET (ZYVOX) PO ×2 (11:23→20:37)
[2017-12-15 11:37] LABS: BEDSIDE GLUCOSE 322 MG/DL (70-105)
[2017-12-15 12:05] LABS: SODIUM,RANDOM URINE 55 MEQ/L
[2017-12-15 12:05] LABS: CREATININE,RANDOM URINE 47.1 MG/DL
[2017-12-15] MEDS ORDERED: ONDANSETRON 4MG/2ML VIAL (J2405) As Ordered (12:18)
[2017-12-15] MEDS ORDERED: LIDOCAINE 2% INJ 100 MG/5 ML SDV (FOR ANES.) As Ordered (12:18)
[2017-12-15] MEDS ORDERED: PROPOFOL 200 MG/20 ML VIAL As Ordered (12:18)
[2017-12-15] MEDS ORDERED: fentaNYL 100 MCG/2 ML INJECTION (J3010) As Ordered (12:19)
[2017-12-15] MEDS ORDERED: MIDAZOLAM INJ 2 MG/2 ML VIAL (J2250) As Ordered (12:19)
[2017-12-15] MEDS: LIDOCAINE 1% MDV 20ML VIAL As Ordered (13:33)
[2017-12-15] MEDS: BUPIVACAINE HCL 0.5% 10 ML VIAL As Ordered (13:33)
[2017-12-15] MEDS: SLF 3 ML SYR IV ×2 (14:00→20:36)
[2017-12-15] MEDS ORDERED: fentaNYL 100 MCG/2 ML INJECTION (J3010) IV (14:30)
[2017-12-15] MEDS ORDERED: ONDANSETRON 4MG/2ML VIAL (J2405) IV (14:30)
[2017-12-15 17:39] LABS: BEDSIDE GLUCOSE 116 MG/DL (70-105)
[2017-12-15] MEDS: ONDANSETRON 4 MG TAB (S0181) PO (17:44)
[2017-12-15] MEDS: LR 1,000 ML IV (20:00)
[2017-12-15 20:38] LABS: BEDSIDE GLUCOSE 200 MG/DL (70-105)
[2017-12-16] MEDS: SLF 3 ML SYR IV ×3 (05:39→21:22)
[2017-12-16] MEDS: LevoFLOXacin 500 MG TABLET PO (05:39)
[2017-12-16] MEDS: PERCOCET 5MG/325MG TAB PO ×3 (05:47→18:41)
[2017-12-16 06:09] LABS: C REACTIVE PROTEIN QUANTITATIV 6.01 MG/DL (0.00-0.30)
[2017-12-16] MEDS: HEPARIN SOD (PORCINE) 5000 UNITS/ML VIAL SC ×3 (06:41→21:21)
[2017-12-16 08:55] LABS: BASO % 0.6 % (0.0-1.0); EOS # 0.1 10^3/uL (0.0-0.50); EOS % 1.1 % (0.0-3.0); HEMATOCRIT 25.9 % (42.0-52.0); HEMOGLOBIN 8.7 g/dl (13.5-17.5); IMMATURE GRANULOCYTE % 0.6 % (0-3.0); LYMPH # 0.9 10^3/uL (1.5-4.5); LYMPH % 13.3 % (24.0-44.0); MEAN CORPUSCULAR HEMOGLOBIN 29.9 pg (27.0-33.0); MEAN CORPUSCULAR HGB CONC 33.6 g/dl (32.0-36.5); MONO # 0.7 10^3/uL (0.0-0.8); NEUTROPHILS # 5.2 10^3/uL (1.8-7.7); NEUTROPHILS % 74.4 % (36.0-66.0); PLATELET COUNT, AUTOMATED 339 10^3/uL (150-450); RED BLOOD COUNT 2.91 10^6/uL (4.30-6.10); RED CELL DISTRIBUTION WIDTH 12.1 % (11.5-14.5)
[2017-12-16 08:56] LABS: BEDSIDE GLUCOSE 340 MG/DL (70-105)
[2017-12-16 09:01] LABS: ANION GAP 8 MEQ/L (8-16); BLOOD UREA NITROGEN 9 MG/DL (7-18); CALCIUM LEVEL 8.4 MG/DL (8.5-10.1); CARBON DIOXIDE LEVEL 27 MEQ/L (21-32); CHLORIDE LEVEL 104 MEQ/L (98-107); CREATININE FOR GFR 1.44 MG/DL (0.70-1.30); GLOMERULAR FILTRATION RATE 59.1 (>60); GLUCOSE, FASTING 252 MG/DL (70-100); POTASSIUM SERUM 4.6 MEQ/L (3.5-5.1); SODIUM LEVEL 139 MEQ/L (136-145)
[2017-12-16] MEDS: HumaLOG INSULIN (NovoLOG) PER UNIT SC ×4 (09:03→21:22)
[2017-12-16] MEDS: OMEPRAZOLE 20 MG CAP PO (09:04)
[2017-12-16] MEDS: LEVEMIR (INSULIN DETEMIR) 1 UNITS/0.01ML SC (09:04)
[2017-12-16] MEDS: GABAPENTIN 300 MG CAP PO ×3 (09:05→21:22)
[2017-12-16] MEDS: LINEZOLID 600MG TABLET (ZYVOX) PO ×2 (09:05→21:22)
[2017-12-16 12:35] LABS: BEDSIDE GLUCOSE 341 MG/DL (70-105)
[2017-12-16 17:30] LABS: BEDSIDE GLUCOSE 143 MG/DL (70-105)
[2017-12-16 21:19] LABS: BEDSIDE GLUCOSE 307 MG/DL (70-105)
[2017-12-16] MEDS: FUROSEMIDE 20 MG TAB PO (23:38)
[2017-12-17] MEDS: SLF 3 ML SYR IV ×4 (06:26→21:03)
[2017-12-17] MEDS: LevoFLOXacin 500 MG TABLET PO (06:26)
[2017-12-17] MEDS: HEPARIN SOD (PORCINE) 5000 UNITS/ML VIAL SC ×3 (06:26→21:03)
[2017-12-17 06:40] LABS: BASO % 0.4 % (0.0-1.0); EOS # 0.1 10^3/uL (0.0-0.50); EOS % 0.6 % (0.0-3.0); HEMATOCRIT 25.8 % (42.0-52.0); HEMOGLOBIN 8.7 g/dl (13.5-17.5); IMMATURE GRANULOCYTE % 0.6 % (0-3.0); LYMPH # 0.7 10^3/uL (1.5-4.5); LYMPH % 6.3 % (24.0-44.0); MEAN CORPUSCULAR HEMOGLOBIN 29.7 pg (27.0-33.0); MEAN CORPUSCULAR HGB CONC 33.7 g/dl (32.0-36.5); MEAN CORPUSCULAR VOLUME 88.1 fl (80.0-96.0); MONO # 0.7 10^3/uL (0.0-0.8); MONO % 6.6 % (0.0-5.0); NEUTROPHILS # 9.1 10^3/uL (1.8-7.7); NEUTROPHILS % 85.5 % (36.0-66.0); PLATELET COUNT, AUTOMATED 418 10^3/uL (150-450); RED BLOOD COUNT 2.93 10^6/uL (4.30-6.10); WHITE BLOOD COUNT 10.6 10^3/uL (4.0-10.0)
[2017-12-17] MEDS: PERCOCET 5MG/325MG TAB PO ×2 (06:43→16:36)
[2017-12-17 06:57] LABS: ANION GAP 10 MEQ/L (8-16); BLOOD UREA NITROGEN 12 MG/DL (7-18); C REACTIVE PROTEIN QUANTITATIV 6.96 MG/DL (0.00-0.30); CALCIUM LEVEL 8.3 MG/DL (8.5-10.1); CARBON DIOXIDE LEVEL 25 MEQ/L (21-32); CHLORIDE LEVEL 101 MEQ/L (98-107); CREATININE FOR GFR 1.62 MG/DL (0.70-1.30); GLOMERULAR FILTRATION RATE 51.6 (>60); SODIUM LEVEL 136 MEQ/L (136-145)
[2017-12-17 07:00] LABS: GLUCOSE, FASTING 402 MG/DL (70-100); POTASSIUM SERUM 5.3 MEQ/L (3.5-5.1)
[2017-12-17] MEDS: FUROSEMIDE 40 MG/4 ML VIAL (J1940) IV (07:00)
[2017-12-17] MEDS: HumaLOG INSULIN (NovoLOG) PER UNIT SC ×4 (07:05→20:26)
[2017-12-17] MEDS ORDERED: FUROSEMIDE 40 MG/4 ML VIAL (J1940) IV (08:00)
[2017-12-17 08:27] LABS: BEDSIDE GLUCOSE 151 MG/DL (70-105)
[2017-12-17] MEDS: OMEPRAZOLE 20 MG CAP PO (08:45)
[2017-12-17] MEDS: GABAPENTIN 300 MG CAP PO ×3 (08:45→21:04)
[2017-12-17] MEDS: LINEZOLID 600MG TABLET (ZYVOX) PO (08:45)
[2017-12-17] MEDS: LEVEMIR (INSULIN DETEMIR) 1 UNITS/0.01ML SC (08:46)
[2017-12-17] MEDS ORDERED: LevoFLOXacin IV 750 MG in APPROPRIATE DILUENT 1 EA IV (10:00)
[2017-12-17 10:35] LABS: VENOUS BASE EXCESS 2.6 (-2.0-2.0); VENOUS O2 SATURATION 94.1 % (60.0-80.0); VENOUS PARTIAL PRESSURE CO2 40.5 mmHg (38.0-50.0); VENOUS PARTIAL PRESSURE O2 73.6 mmHg (30.0-50.0); VENOUS PH 7.441 UNITS (7.330-7.430); VENOUS STANDARD HCO3 26.8 MEQ/L; VENOUS TOTAL CO2 28.2 MEQ/L (24.0-28.0)
[2017-12-17] MEDS: VANCOMYCIN HCL 1,000 MG, VIAL MATE ADAPTER 1 EACH in D5W 250 ML IV ×2 (10:43→16:36)
[2017-12-17] MEDS: guaiFENesin ER 600 MG TAB PO ×2 (10:46→21:03)
[2017-12-17] MEDS: LABETALOL 100 MG TAB PO ×2 (10:46→23:13)
[2017-12-17 11:04] LABS: LACTIC ACID SEPSIS PROTOCOL 1.2 MMOL/L (0.4-2.0)
[2017-12-17] MEDS: LevoFLOXacin IV 250 MG in APPROPRIATE DILUENT 1 EA IV (12:58)
[2017-12-17 14:55] LABS: ANION GAP 9 MEQ/L (8-16); BLOOD UREA NITROGEN 12 MG/DL (7-18); CARBON DIOXIDE LEVEL 29 MEQ/L (21-32); CHLORIDE LEVEL 101 MEQ/L (98-107); CREATININE FOR GFR 1.74 MG/DL (0.70-1.30); GLOMERULAR FILTRATION RATE 47.5 (>60); GLUCOSE, FASTING 158 MG/DL (70-100); POTASSIUM SERUM 4.3 MEQ/L (3.5-5.1); SODIUM LEVEL 139 MEQ/L (136-145)
[2017-12-17 17:24] LABS: BEDSIDE GLUCOSE 210 MG/DL (70-105)
[2017-12-17 18:42] LABS: BEDSIDE GLUCOSE 148 MG/DL (70-105)
[2017-12-17 20:28] LABS: BEDSIDE GLUCOSE 172 MG/DL (70-105)
[2017-12-18] MEDS: VANCOMYCIN HCL 1,000 MG, VIAL MATE ADAPTER 1 EACH in D5W 250 ML IV ×2 (05:12→20:19)
[2017-12-18] MEDS: HEPARIN SOD (PORCINE) 5000 UNITS/ML VIAL SC (05:12)
[2017-12-18] MEDS: SLF 3 ML SYR IV ×3 (05:12→20:23)
[2017-12-18] MEDS: PERCOCET 5MG/325MG TAB PO ×3 (05:26→19:45)
[2017-12-18 06:21] LABS: BASO % 0.3 % (0.0-1.0); EOS # 0.1 10^3/uL (0.0-0.50); EOS % 0.7 % (0.0-3.0); HEMATOCRIT 26.1 % (42.0-52.0); IMMATURE GRANULOCYTE % 0.3 % (0-3.0); LYMPH # 0.9 10^3/uL (1.5-4.5); LYMPH % 9.7 % (24.0-44.0); MEAN CORPUSCULAR HEMOGLOBIN 30.1 pg (27.0-33.0); MEAN CORPUSCULAR HGB CONC 34.5 g/dl (32.0-36.5); MEAN CORPUSCULAR VOLUME 87.3 fl (80.0-96.0); MONO # 0.9 10^3/uL (0.0-0.8); MONO % 9.4 % (0.0-5.0); NEUTROPHILS # 7.2 10^3/uL (1.8-7.7); NEUTROPHILS % 79.6 % (36.0-66.0); PLATELET COUNT, AUTOMATED 486 10^3/uL (150-450); RED BLOOD COUNT 2.99 10^6/uL (4.30-6.10); RED CELL DISTRIBUTION WIDTH 12.1 % (11.5-14.5); WHITE BLOOD COUNT 9.1 10^3/uL (4.0-10.0)
[2017-12-18 06:57] LABS: ANION GAP 7 MEQ/L (8-16); BLOOD UREA NITROGEN 12 MG/DL (7-18); CALCIUM LEVEL 8.8 MG/DL (8.5-10.1); CARBON DIOXIDE LEVEL 29 MEQ/L (21-32); CHLORIDE LEVEL 101 MEQ/L (98-107); GLOMERULAR FILTRATION RATE 48.8 (>60); GLUCOSE, FASTING 289 MG/DL (70-100); POTASSIUM SERUM 4.2 MEQ/L (3.5-5.1); SODIUM LEVEL 137 MEQ/L (136-145); VANCOMYCIN RANDOM 39.2 UG/ML
[2017-12-18] MEDS: HumaLOG INSULIN (NovoLOG) PER UNIT SC ×4 (08:16→20:23)
[2017-12-18] MEDS: CHLORTHALIDONE 25 MG TAB PO (08:17)
[2017-12-18] MEDS: LEVEMIR (INSULIN DETEMIR) 1 UNITS/0.01ML SC (08:17)
[2017-12-18] MEDS: GABAPENTIN 300 MG CAP PO ×3 (08:17→20:19)
[2017-12-18] MEDS: OMEPRAZOLE 20 MG CAP PO (08:17)
[2017-12-18] MEDS: guaiFENesin ER 600 MG TAB PO ×2 (08:17→20:19)
[2017-12-18] MEDS: LABETALOL 100 MG TAB PO ×2 (08:18→20:23)
[2017-12-18 08:30] LABS: C REACTIVE PROTEIN QUANTITATIV 9.28 MG/DL (0.00-0.30)
[2017-12-18] MEDS ORDERED: amLODIPine 10 MG TAB PO (09:00)
[2017-12-18] MEDS ORDERED: LevoFLOXacin IV 750 MG in APPROPRIATE DILUENT 1 EA IV (12:00)
[2017-12-18] MEDS: APIXABAN 5 MG TAB (ELIQUIS) PO ×2 (12:04→20:19)
[2017-12-18] MEDS: LevoFLOXacin IV 750 MG in APPROPRIATE DILUENT 1 EA IV (12:05)
[2017-12-18 13:32] LABS: BEDSIDE GLUCOSE 187 MG/DL (70-105)
[2017-12-18 16:25] LABS: VANCOMYCIN LEVEL TROUGH 21.4 UG/ML (10.0-20.0)
[2017-12-18 17:53] LABS: BEDSIDE GLUCOSE 57 MG/DL (70-105)
[2017-12-18 18:44] LABS: BEDSIDE GLUCOSE 125 MG/DL (70-105)
[2017-12-18 20:16] LABS: BEDSIDE GLUCOSE 120 MG/DL (70-105)
[2017-12-19] MEDS: SLF 3 ML SYR IV (06:05)
[2017-12-19] MEDS: PERCOCET 5MG/325MG TAB PO ×3 (06:29→19:26)
[2017-12-19 06:41] LABS: BASO % 0.4 % (0.0-1.0); EOS # 0.1 10^3/uL (0.0-0.50); EOS % 0.9 % (0.0-3.0); HEMATOCRIT 25.9 % (42.0-52.0); HEMOGLOBIN 8.5 g/dl (13.5-17.5); IMMATURE GRANULOCYTE % 0.4 % (0-3.0); LYMPH # 0.9 10^3/uL (1.5-4.5); MEAN CORPUSCULAR HEMOGLOBIN 29.1 pg (27.0-33.0); MEAN CORPUSCULAR HGB CONC 32.8 g/dl (32.0-36.5); MEAN CORPUSCULAR VOLUME 88.7 fl (80.0-96.0); MONO # 0.8 10^3/uL (0.0-0.8); MONO % 11.4 % (0.0-5.0); NEUTROPHILS # 5.1 10^3/uL (1.8-7.7); NEUTROPHILS % 73.9 % (36.0-66.0); PLATELET COUNT, AUTOMATED 483 10^3/uL (150-450); RED BLOOD COUNT 2.92 10^6/uL (4.30-6.10); RED CELL DISTRIBUTION WIDTH 12.3 % (11.5-14.5); WHITE BLOOD COUNT 6.9 10^3/uL (4.0-10.0)
[2017-12-19 06:57] LABS: ANION GAP 6 MEQ/L (8-16); BLOOD UREA NITROGEN 9 MG/DL (7-18); CALCIUM LEVEL 8.8 MG/DL (8.5-10.1); CARBON DIOXIDE LEVEL 32 MEQ/L (21-32); CHLORIDE LEVEL 101 MEQ/L (98-107); CREATININE FOR GFR 1.55 MG/DL (0.70-1.30); GLOMERULAR FILTRATION RATE 54.3 (>60); GLUCOSE, FASTING 169 MG/DL (70-100); POTASSIUM SERUM 4.2 MEQ/L (3.5-5.1); SODIUM LEVEL 139 MEQ/L (136-145)
[2017-12-19] MEDS: HumaLOG INSULIN (NovoLOG) PER UNIT SC ×4 (08:25→22:44)
[2017-12-19] MEDS: CHLORTHALIDONE 25 MG TAB PO (08:26)
[2017-12-19] MEDS: LEVEMIR (INSULIN DETEMIR) 1 UNITS/0.01ML SC (08:26)
[2017-12-19] MEDS: LABETALOL 100 MG TAB PO ×2 (08:27→20:55)
[2017-12-19] MEDS: GABAPENTIN 300 MG CAP PO ×3 (08:27→20:55)
[2017-12-19] MEDS: OMEPRAZOLE 20 MG CAP PO (08:28)
[2017-12-19] MEDS: APIXABAN 5 MG TAB (ELIQUIS) PO ×2 (08:28→20:54)
[2017-12-19] MEDS: guaiFENesin ER 600 MG TAB PO ×2 (08:28→20:54)
[2017-12-19 10:35] LABS: C REACTIVE PROTEIN QUANTITATIV 9.11 MG/DL (0.00-0.30)
[2017-12-19 11:55] LABS: BEDSIDE GLUCOSE 198 MG/DL (70-105)
[2017-12-19] MEDS: BACTRIM 160MG/800MG DS TAB PO (13:31)
[2017-12-19 17:48] LABS: BEDSIDE GLUCOSE 107 MG/DL (70-105)
[2017-12-19] MEDS: ONDANSETRON 4 MG TAB (S0181) PO (18:57)
[2017-12-19 19:35] LABS: BEDSIDE GLUCOSE 62 MG/DL (70-105)
[2017-12-19 19:35] LABS: BEDSIDE GLUCOSE 77 MG/DL (70-105)
[2017-12-19] MEDS: DOXYCYCLINE HYCLATE 100 MG TAB PO (20:55)
[2017-12-19 22:15] LABS: BEDSIDE GLUCOSE 71 MG/DL (70-105)
[2017-12-19 23:26] LABS: BEDSIDE GLUCOSE 106 MG/DL (70-105)
[2017-12-20 06:49] LABS: BASO % 0.5 % (0.0-1.0); EOS # 0.1 10^3/uL (0.0-0.50); HEMOGLOBIN 8.1 g/dl (13.5-17.5); IMMATURE GRANULOCYTE % 0.1 % (0-3.0); LYMPH # 0.9 10^3/uL (1.5-4.5); LYMPH % 11.6 % (24.0-44.0); MEAN CORPUSCULAR HEMOGLOBIN 29.8 pg (27.0-33.0); MEAN CORPUSCULAR HGB CONC 33.8 g/dl (32.0-36.5); MEAN CORPUSCULAR VOLUME 88.2 fl (80.0-96.0); MONO # 0.7 10^3/uL (0.0-0.8); MONO % 9.4 % (0.0-5.0); NEUTROPHILS # 5.7 10^3/uL (1.8-7.7); NEUTROPHILS % 77.4 % (36.0-66.0); PLATELET COUNT, AUTOMATED 519 10^3/uL (150-450); RED BLOOD COUNT 2.72 10^6/uL (4.30-6.10); RED CELL DISTRIBUTION WIDTH 12.4 % (11.5-14.5); WHITE BLOOD COUNT 7.3 10^3/uL (4.0-10.0)
[2017-12-20 07:10] LABS: ANION GAP 6 MEQ/L (8-16); BLOOD UREA NITROGEN 9 MG/DL (7-18); CARBON DIOXIDE LEVEL 31 MEQ/L (21-32); CHLORIDE LEVEL 101 MEQ/L (98-107); CREATININE FOR GFR 1.68 MG/DL (0.70-1.30); GLOMERULAR FILTRATION RATE 49.5 (>60); GLUCOSE, FASTING 217 MG/DL (70-100); POTASSIUM SERUM 4.5 MEQ/L (3.5-5.1); SODIUM LEVEL 138 MEQ/L (136-145)
[2017-12-20] MEDS: PERCOCET 5MG/325MG TAB PO ×3 (07:56→22:48)
[2017-12-20 08:01] LABS: C REACTIVE PROTEIN QUANTITATIV 6.74 MG/DL (0.00-0.30)
[2017-12-20] MEDS: CHLORTHALIDONE 25 MG TAB PO (08:10)
[2017-12-20] MEDS: LevoFLOXacin 750 MG TABLET PO (08:10)
[2017-12-20] MEDS: GABAPENTIN 300 MG CAP PO ×3 (08:10→20:41)
[2017-12-20] MEDS: OMEPRAZOLE 20 MG CAP PO (08:10)
[2017-12-20] MEDS: ONDANSETRON 4 MG TAB (S0181) PO (08:14)
[2017-12-20] MEDS: LEVEMIR (INSULIN DETEMIR) 1 UNITS/0.01ML SC (09:00)
[2017-12-20] MEDS: HumaLOG INSULIN (NovoLOG) PER UNIT SC ×4 (09:00→20:42)
[2017-12-20] MEDS: DOXYCYCLINE HYCLATE 100 MG TAB PO ×2 (09:00→20:41)
[2017-12-20] MEDS: guaiFENesin ER 600 MG TAB PO ×2 (09:00→20:40)
[2017-12-20] MEDS: APIXABAN 5 MG TAB (ELIQUIS) PO ×2 (09:01→20:40)
[2017-12-20] MEDS: LABETALOL 100 MG TAB PO ×3 (09:02→20:43)
[2017-12-20 10:05] LABS: FERRITIN 124 NG/ML (26-388); IRON (FE) 21 UG/DL (65-175); PERCENT SATURATION 11.2 % (19.7-50.0); TOTAL IRON BINDING CAPACITY 188 UG/DL (250-450)
[2017-12-20] MEDS: amLODIPine 5 MG TAB PO (11:36)
[2017-12-20] MEDS: FERROUS GLUCONATE 324 MG TAB PO (11:36)
[2017-12-20 11:59] LABS: BEDSIDE GLUCOSE 300 MG/DL (70-105)
[2017-12-21 02:54] LABS: BEDSIDE GLUCOSE 140 MG/DL (70-105)
[2017-12-21 02:54] LABS: BEDSIDE GLUCOSE 257 MG/DL (70-105)
[2017-12-21 05:54] LABS: BASO # 0.1 10^3/uL (0.0-0.2); BASO % 0.8 % (0.0-1.0); EOS # 0.1 10^3/uL (0.0-0.50); EOS % 0.8 % (0.0-3.0); HEMATOCRIT 25.1 % (42.0-52.0); HEMOGLOBIN 8.4 g/dl (13.5-17.5); IMMATURE GRANULOCYTE % 0.5 % (0-3.0); LYMPH # 1.1 10^3/uL (1.5-4.5); MEAN CORPUSCULAR HEMOGLOBIN 29.6 pg (27.0-33.0); MEAN CORPUSCULAR HGB CONC 33.5 g/dl (32.0-36.5); MEAN CORPUSCULAR VOLUME 88.4 fl (80.0-96.0); MONO # 0.6 10^3/uL (0.0-0.8); MONO % 10.4 % (0.0-5.0); NEUTROPHILS # 4.3 10^3/uL (1.8-7.7); NEUTROPHILS % 69.5 % (36.0-66.0); PLATELET COUNT, AUTOMATED 546 10^3/uL (150-450); RED BLOOD COUNT 2.84 10^6/uL (4.30-6.10); RED CELL DISTRIBUTION WIDTH 12.2 % (11.5-14.5); WHITE BLOOD COUNT 6.2 10^3/uL (4.0-10.0)
[2017-12-21 06:18] LABS: ANION GAP 6 MEQ/L (8-16); BLOOD UREA NITROGEN 14 MG/DL (7-18); CALCIUM LEVEL 8.7 MG/DL (8.5-10.1); CARBON DIOXIDE LEVEL 28 MEQ/L (21-32); CHLORIDE LEVEL 99 MEQ/L (98-107); CREATININE FOR GFR 1.79 MG/DL (0.70-1.30); POTASSIUM SERUM 4.8 MEQ/L (3.5-5.1); SODIUM LEVEL 133 MEQ/L (136-145)
[2017-12-21 06:19] LABS: GLUCOSE, FASTING 410 MG/DL (70-100)
[2017-12-21 08:39] LABS: BEDSIDE GLUCOSE 478 MG/DL (70-105)
[2017-12-21] MEDS: guaiFENesin ER 600 MG TAB PO ×2 (08:41→21:30)
[2017-12-21] MEDS: GABAPENTIN 300 MG CAP PO ×3 (08:41→21:30)
[2017-12-21] MEDS: OMEPRAZOLE 20 MG CAP PO (08:42)
[2017-12-21] MEDS: amLODIPine 5 MG TAB PO (08:42)
[2017-12-21] MEDS: LABETALOL 100 MG TAB PO ×2 (08:42→21:31)
[2017-12-21] MEDS: FERROUS GLUCONATE 324 MG TAB PO (08:42)
[2017-12-21] MEDS: APIXABAN 5 MG TAB (ELIQUIS) PO ×2 (08:43→21:30)
[2017-12-21] MEDS: HumaLOG INSULIN (NovoLOG) PER UNIT SC ×4 (08:44→20:38)
[2017-12-21] MEDS: LEVEMIR (INSULIN DETEMIR) 1 UNITS/0.01ML SC (08:44)
[2017-12-21] MEDS: PERCOCET 5MG/325MG TAB PO ×3 (08:47→21:31)
[2017-12-21 12:15] LABS: BEDSIDE GLUCOSE 341 MG/DL (70-105)
[2017-12-21 16:52] LABS: BEDSIDE GLUCOSE 261 MG/DL (70-105)
[2017-12-21 21:02] LABS: BEDSIDE GLUCOSE 200 MG/DL (70-105)
[2017-12-22 06:44] LABS: BASO # 0.1 10^3/uL (0.0-0.2); BASO % 0.8 % (0.0-1.0); EOS # 0.1 10^3/uL (0.0-0.50); EOS % 1.2 % (0.0-3.0); HEMATOCRIT 24.8 % (42.0-52.0); HEMOGLOBIN 8.3 g/dl (13.5-17.5); IMMATURE GRANULOCYTE % 0.4 % (0-3.0); LYMPH % 13.1 % (24.0-44.0); MEAN CORPUSCULAR HEMOGLOBIN 29.6 pg (27.0-33.0); MEAN CORPUSCULAR HGB CONC 33.5 g/dl (32.0-36.5); MEAN CORPUSCULAR VOLUME 88.6 fl (80.0-96.0); MONO # 0.7 10^3/uL (0.0-0.8); MONO % 9.5 % (0.0-5.0); NEUTROPHILS # 5.9 10^3/uL (1.8-7.7); PLATELET COUNT, AUTOMATED 535 10^3/uL (150-450); RED CELL DISTRIBUTION WIDTH 12.3 % (11.5-14.5); WHITE BLOOD COUNT 7.8 10^3/uL (4.0-10.0)
[2017-12-22 06:59] LABS: ANION GAP 5 MEQ/L (8-16); BLOOD UREA NITROGEN 16 MG/DL (7-18); CALCIUM LEVEL 9.1 MG/DL (8.5-10.1); CARBON DIOXIDE LEVEL 31 MEQ/L (21-32); CHLORIDE LEVEL 99 MEQ/L (98-107); GLOMERULAR FILTRATION RATE 48.8 (>60); GLUCOSE, FASTING 400 MG/DL (70-100); POTASSIUM SERUM 4.6 MEQ/L (3.5-5.1); SODIUM LEVEL 135 MEQ/L (136-145)
[2017-12-22] MEDS: FERROUS GLUCONATE 324 MG TAB PO (08:41)
[2017-12-22] MEDS: GABAPENTIN 300 MG CAP PO ×3 (08:41→21:19)
[2017-12-22] MEDS: OMEPRAZOLE 20 MG CAP PO (08:42)
[2017-12-22] MEDS: guaiFENesin ER 600 MG TAB PO ×2 (08:42→21:19)
[2017-12-22] MEDS: APIXABAN 5 MG TAB (ELIQUIS) PO ×2 (08:42→21:19)
[2017-12-22] MEDS: LevoFLOXacin 750 MG TABLET PO (08:42)
[2017-12-22] MEDS: PERCOCET 5MG/325MG TAB PO ×3 (08:43→22:33)
[2017-12-22] MEDS: HumaLOG INSULIN (NovoLOG) PER UNIT SC ×4 (08:44→21:00)
[2017-12-22] MEDS: LEVEMIR (INSULIN DETEMIR) 1 UNITS/0.01ML SC (08:44)
[2017-12-22] MEDS: LABETALOL 100 MG TAB PO ×2 (08:45→21:20)
[2017-12-22] MEDS: amLODIPine 5 MG TAB PO (08:46)
[2017-12-22] MEDS: ACETAMINOPHEN TAB 650MG DOSE (2X325MG) PO (11:49)
[2017-12-22 11:53] LABS: BEDSIDE GLUCOSE 326 MG/DL (70-105)
[2017-12-22 16:45] LABS: BEDSIDE GLUCOSE 160 MG/DL (70-105)
[2017-12-22 21:05] LABS: BEDSIDE GLUCOSE 97 MG/DL (70-105)
[2017-12-23] MEDS: PERCOCET 5MG/325MG TAB PO ×3 (04:59→17:36)
[2017-12-23 06:55] LABS: BASO # 0.1 10^3/uL (0.0-0.2); BASO % 0.5 % (0.0-1.0); EOS # 0.1 10^3/uL (0.0-0.50); EOS % 0.8 % (0.0-3.0); HEMATOCRIT 25.4 % (42.0-52.0); HEMOGLOBIN 8.6 g/dl (13.5-17.5); IMMATURE GRANULOCYTE % 0.3 % (0-3.0); LYMPH # 0.7 10^3/uL (1.5-4.5); LYMPH % 7.5 % (24.0-44.0); MEAN CORPUSCULAR HEMOGLOBIN 29.4 pg (27.0-33.0); MEAN CORPUSCULAR HGB CONC 33.9 g/dl (32.0-36.5); MEAN CORPUSCULAR VOLUME 86.7 fl (80.0-96.0); MONO # 0.8 10^3/uL (0.0-0.8); MONO % 8.4 % (0.0-5.0); NEUTROPHILS # 8.1 10^3/uL (1.8-7.7); NEUTROPHILS % 82.5 % (36.0-66.0); PLATELET COUNT, AUTOMATED 288 10^3/uL (150-450); RED BLOOD COUNT 2.93 10^6/uL (4.30-6.10); RED CELL DISTRIBUTION WIDTH 12.4 % (11.5-14.5); WHITE BLOOD COUNT 9.8 10^3/uL (4.0-10.0)
[2017-12-23 07:11] LABS: ANION GAP 8 MEQ/L (8-16); BLOOD UREA NITROGEN 17 MG/DL (7-18); CALCIUM LEVEL 8.7 MG/DL (8.5-10.1); CARBON DIOXIDE LEVEL 26 MEQ/L (21-32); CHLORIDE LEVEL 98 MEQ/L (98-107); CREATININE FOR GFR 1.62 MG/DL (0.70-1.30); GLOMERULAR FILTRATION RATE 51.6 (>60); SODIUM LEVEL 132 MEQ/L (136-145)
[2017-12-23 07:17] LABS: GLUCOSE, FASTING 484 MG/DL (70-100); POTASSIUM SERUM 5.4 MEQ/L (3.5-5.1)
[2017-12-23] MEDS: HumaLOG INSULIN (NovoLOG) PER UNIT SC ×3 (08:13→17:21)
[2017-12-23] MEDS: LEVEMIR (INSULIN DETEMIR) 1 UNITS/0.01ML SC (08:13)
[2017-12-23] MEDS: APIXABAN 5 MG TAB (ELIQUIS) PO (08:14)
[2017-12-23] MEDS: guaiFENesin ER 600 MG TAB PO (08:14)
[2017-12-23] MEDS: OMEPRAZOLE 20 MG CAP PO (08:14)
[2017-12-23] MEDS: GABAPENTIN 300 MG CAP PO ×2 (08:14→16:49)
[2017-12-23] MEDS: FERROUS GLUCONATE 324 MG TAB PO (08:17)
[2017-12-23] MEDS: LABETALOL 100 MG TAB PO (08:17)
[2017-12-23] MEDS: amLODIPine 5 MG TAB PO (08:18)
[2017-12-23] MEDS: PATIROMER SORBITEX CALCIUM 8.4 GM POWDER PACKET (VELTASSA) PO (10:19)
[2017-12-23 11:44] LABS: BEDSIDE GLUCOSE 346 MG/DL (70-105)
[2017-12-23] MEDS: ONDANSETRON 4 MG TAB (S0181) PO (12:46)
[2017-12-23 18:00] LABS: IMMUNOGLOBULIN G 1410 MG/DL (681-1648); IMMUNOGLOBULIN M 77.8 MG/DL (40-230)
[2017-12-23] MEDS ORDERED: HumaLOG INSULIN (NovoLOG) PER UNIT SC (21:00)
[2017-12-24 10:38] LABS: HIV 1&2 SCREEN CENTAUR NEGATIVE (NEGATIVE)
[2017-12-25] MEDS ORDERED: APIXABAN 5 MG TAB (ELIQUIS) PO (09:00)
== END 2017-12-23 18:37 | disposition home or self-care (01) | DRG 710 ==
LOC: M ED INP 12-08 01:09 → M PED 12-12 19:29 → M MSPAV 12-08 01:42 → M ED 15:50
PROC: 0H9NXZZ Drainage of Left Foot Skin, External Approach (ICD-10-PCS; principal; 2017-12-12 14:50)
PROC: 0QBR0ZZ Excision of Left Toe Phalanx, Open Approach (ICD-10-PCS; 2017-12-12 14:50)
PROC: 0JBR0ZZ Excision of Left Foot Subcutaneous Tissue and Fascia, Open Approach (ICD-10-PCS; 2017-12-12 14:50)
PROC: 0JCR0ZZ Extirpation of Matter from Left Foot Subcutaneous Tissue and Fascia, Open Approach (ICD-10-PCS; 2017-12-12 14:50)
PROC: 0JBR0ZZ Excision of Left Foot Subcutaneous Tissue and Fascia, Open Approach (ICD-10-PCS; 2017-12-12 14:50)
DX: A41.9 Sepsis, unspecified organism (principal); J18.9 Pneumonia, unspecified organism; N17.9 Acute kidney failure, unspecified; E10.621 Type 1 diabetes mellitus with foot ulcer; E10.21 Type 1 diabetes mellitus with diabetic nephropathy; L03.116 Cellulitis of left lower limb; E87.1 Hypo-osmolality and hyponatremia; E10.40 Type 1 diabetes mellitus with diabetic neuropathy, unspecified; G62.9 Polyneuropathy, unspecified; I82.612 Acute embolism and thrombosis of superficial veins of left upper extremity; E87.70 Fluid overload, unspecified; E87.5 Hyperkalemia; E10.319 Type 1 diabetes mellitus with unspecified diabetic retinopathy without macular edema; K21.9 Gastro-esophageal reflux disease without esophagitis; Z91.19 Patient's noncompliance with other medical treatment and regimen; N18.2 Chronic kidney disease, stage 2 (mild); I12.9 Hypertensive chronic kidney disease with stage 1 through stage 4 chronic kidney disease, or unspecified chronic kidney disease; F17.220 Nicotine dependence, chewing tobacco, uncomplicated; Z79.899 Other long term (current) drug therapy; Z79.4 Long term (current) use of insulin; Z88.0 Allergy status to penicillin; Z88.8 Allergy status to other drugs, medicaments and biological substances; S90.852A Superficial foreign body, left foot, initial encounter; R00.0 Tachycardia, unspecified; D50.9 Iron deficiency anemia, unspecified; W45.8XXA Other foreign body or object entering through skin, initial encounter; Y92.009 Unspecified place in unspecified non-institutional (private) residence as the place of occurrence of the external cause; B95.8 Unspecified staphylococcus as the cause of diseases classified elsewhere

== ENCOUNTER 2018-01-08 23:44 | Inpatient (IN) | payer SELFPAY ==
[2018-01-09 00:46] LABS: BASO # 0.1 10^3/uL (0.0-0.2); BASO % 0.3 % (0.0-1.0); HEMATOCRIT 25.1 % (42.0-52.0); HEMOGLOBIN 8.5 g/dl (13.5-17.5); IMMATURE GRANULOCYTE % 0.5 % (0-3.0); LYMPH # 0.9 10^3/uL (1.5-4.5); LYMPH % 5.4 % (24.0-44.0); MEAN CORPUSCULAR HEMOGLOBIN 28.3 pg (27.0-33.0); MEAN CORPUSCULAR HGB CONC 33.9 g/dl (32.0-36.5); MEAN CORPUSCULAR VOLUME 83.7 fl (80.0-96.0); MONO # 1.1 10^3/uL (0.0-0.8); MONO % 6.9 % (0.0-5.0); NEUTROPHILS # 14.1 10^3/uL (1.8-7.7); NEUTROPHILS % 86.9 % (36.0-66.0); PLATELET COUNT, AUTOMATED 239 10^3/uL (150-450); RED CELL DISTRIBUTION WIDTH 12.7 % (11.5-14.5); WHITE BLOOD COUNT 16.2 10^3/uL (4.0-10.0)
[2018-01-09] MEDS ORDERED: ONDANSETRON 4MG/2ML VIAL (J2405) As Ordered (00:55)
[2018-01-09 01:00] LABS: ALBUMIN 3.4 GM/DL (3.2-5.2); ALBUMIN/GLOBULIN RATIO 0.65 (1.00-1.93); ALKALINE PHOSPHATASE 100 U/L (45-117); ALT/SGPT 25 U/L (12-78); ANION GAP 5 MEQ/L (8-16); AST/SGOT 13 U/L (7-37); BILIRUBIN,DIRECT 0.3 MG/DL (0.0-0.2); BILIRUBIN,TOTAL 1.2 MG/DL (0.2-1.0); BLOOD UREA NITROGEN 27 MG/DL (7-18); CALCIUM LEVEL 9.4 MG/DL (8.5-10.1); CARBON DIOXIDE LEVEL 27 MEQ/L (21-32); CHLORIDE LEVEL 95 MEQ/L (98-107); CREATININE FOR GFR 1.75 MG/DL (0.70-1.30); GLOMERULAR FILTRATION RATE 47.2 (>60); POTASSIUM SERUM 4.8 MEQ/L (3.5-5.1); SODIUM LEVEL 127 MEQ/L (136-145); TOTAL PROTEIN 8.6 GM/DL (6.4-8.2)
[2018-01-09 01:03] LABS: LACTIC ACID SEPSIS PROTOCOL 1.3 MMOL/L (0.4-2.0)
[2018-01-09 01:04] LABS: GLUCOSE, FASTING 606 MG/DL (70-100)
[2018-01-09] MEDS: MORPHINE 4 MG/ML 1ML VIAL/SYRINGE (J2270) IV ×3 (01:06→17:34)
[2018-01-09] MEDS: ONDANSETRON 4MG/2ML VIAL (J2405) IV (01:06)
[2018-01-09 01:33] LABS: ESTIMATED AVERAGE GLUCOSE 278 MG/DL (60-110); HEMOGLOBIN A1c 11.3 %
[2018-01-09] MEDS: HumuLIN R (REGULAR) INSULIN (NovoLIN R) **100U/ML** PER UNIT IV (02:06)
[2018-01-09] MEDS: LevoFLOXacin IV 750 MG in APPROPRIATE DILUENT 1 EA IV (02:06)
[2018-01-09] MEDS ORDERED: ACETAMINOPHEN TAB 650MG DOSE (2X325MG) PO (04:45)
[2018-01-09] MEDS: HEPARIN SOD (PORCINE) 5000 UNITS/ML VIAL SC ×3 (05:58→22:00)
[2018-01-09] MEDS ORDERED: GLUCOSE 4 GM CHEW TABLET PO (07:00)
[2018-01-09] MEDS ORDERED: GLUCAGON FOR INJ 1 MG VIAL (J1610) SC (07:00)
[2018-01-09] MEDS ORDERED: SODIUM CHLORIDE 0.9% 1000 ML IV (07:30)
[2018-01-09 07:44] LABS: BEDSIDE GLUCOSE 515 MG/DL (70-105)
[2018-01-09] MEDS: NS 1,000 ML IV ×3 (07:45→20:05)
[2018-01-09 08:29] LABS: BEDSIDE GLUCOSE CONFIRMATION 518 MG/DL (LESS THAN 200)
[2018-01-09] MEDS: LEVEMIR (INSULIN DETEMIR) 1 UNITS/0.01ML SC (09:13)
[2018-01-09] MEDS: HumaLOG INSULIN (NovoLOG) PER UNIT SC ×3 (09:14→17:32)
[2018-01-09] MEDS: PERCOCET 5MG/325MG TAB PO ×2 (10:48→17:36)
[2018-01-09 11:44] LABS: BEDSIDE GLUCOSE 463 MG/DL (70-105)
[2018-01-09] MEDS: GABAPENTIN 300 MG CAP PO ×2 (17:30→21:59)
[2018-01-09] MEDS: OMEPRAZOLE 20 MG CAP PO (17:31)
[2018-01-09 17:33] LABS: BEDSIDE GLUCOSE 232 MG/DL (70-105)
[2018-01-09 19:57] LABS: BEDSIDE GLUCOSE 71 MG/DL (70-105)
[2018-01-09] MEDS: METOCLOPRAMIDE 10 MG TAB PO (20:14)
[2018-01-09] MEDS: D5W/0.45% SODIUM CHLORIDE 1,000 ML IV (20:48)
[2018-01-09] MEDS ORDERED: LEVEMIR (INSULIN DETEMIR) 1 UNITS/0.01ML SC (21:00)
[2018-01-09] MEDS ORDERED: HEPARIN SOD (PORCINE) 5000 UNITS/ML VIAL As Ordered (21:48)
[2018-01-09] MEDS: LABETALOL 100 MG TAB PO (22:00)
[2018-01-09] MEDS: LISINOPRIL 10 MG TAB PO (22:00)
[2018-01-09] MEDS: ONDANSETRON 4 MG ORAL DISINTEGRATING TAB (Q0162 PER 1MG) PO (22:00)
[2018-01-10] MEDS: LevoFLOXacin IV 750 MG in APPROPRIATE DILUENT 1 EA IV (02:25)
[2018-01-10 08:11] LABS: HEMATOCRIT 26.5 % (42.0-52.0); HEMOGLOBIN 8.7 g/dl (13.5-17.5); MEAN CORPUSCULAR HEMOGLOBIN 28.5 pg (27.0-33.0); MEAN CORPUSCULAR HGB CONC 32.8 g/dl (32.0-36.5); MEAN CORPUSCULAR VOLUME 86.9 fl (80.0-96.0); PLATELET COUNT, AUTOMATED 260 10^3/uL (150-450); RED BLOOD COUNT 3.05 10^6/uL (4.30-6.10); WHITE BLOOD COUNT 11.8 10^3/uL (4.0-10.0)
[2018-01-10] MEDS: LABETALOL 100 MG TAB PO ×2 (08:22→21:01)
[2018-01-10] MEDS: GABAPENTIN 300 MG CAP PO ×3 (08:22→20:58)
[2018-01-10] MEDS: LEVEMIR (INSULIN DETEMIR) 1 UNITS/0.01ML SC (08:23)
[2018-01-10] MEDS: OMEPRAZOLE 20 MG CAP PO (08:23)
[2018-01-10] MEDS: LISINOPRIL 10 MG TAB PO (08:23)
[2018-01-10 08:32] LABS: ANION GAP 13 MEQ/L (8-16); BLOOD UREA NITROGEN 30 MG/DL (7-18); CALCIUM LEVEL 8.9 MG/DL (8.5-10.1); CARBON DIOXIDE LEVEL 19 MEQ/L (21-32); CHLORIDE LEVEL 96 MEQ/L (98-107); CREATININE FOR GFR 1.99 MG/DL (0.70-1.30); GLOMERULAR FILTRATION RATE 40.7 (>60); SODIUM LEVEL 128 MEQ/L (136-145)
[2018-01-10 08:40] LABS: GLUCOSE, FASTING 720 MG/DL (70-100)
[2018-01-10 08:41] LABS: BEDSIDE GLUCOSE CONFIRMATION 716 MG/DL (LESS THAN 200)
[2018-01-10 08:41] LABS: POTASSIUM SERUM 5.2 MEQ/L (3.5-5.1)
[2018-01-10] MEDS: HumaLOG INSULIN (NovoLOG) PER UNIT SC ×3 (08:44→17:01)
[2018-01-10] MEDS: ONDANSETRON 4 MG ORAL DISINTEGRATING TAB (Q0162 PER 1MG) PO (08:50)
[2018-01-10] MEDS: PERCOCET 5MG/325MG TAB PO ×3 (08:50→20:58)
[2018-01-10] MEDS: NS 1,000 ML IV ×4 (09:34→16:15)
[2018-01-10 10:02] LABS: BEDSIDE GLUCOSE 574 MG/DL (70-105)
[2018-01-10 11:47] LABS: ANION GAP 10 MEQ/L (8-16); BLOOD UREA NITROGEN 30 MG/DL (7-18); CARBON DIOXIDE LEVEL 22 MEQ/L (21-32); CHLORIDE LEVEL 100 MEQ/L (98-107); CREATININE FOR GFR 2.09 MG/DL (0.70-1.30); GLOMERULAR FILTRATION RATE 38.4 (>60); POTASSIUM SERUM 4.7 MEQ/L (3.5-5.1); SODIUM LEVEL 132 MEQ/L (136-145)
[2018-01-10 12:02] LABS: BEDSIDE GLUCOSE 510 MG/DL (70-105)
[2018-01-10 12:13] LABS: GLUCOSE, FASTING 527 MG/DL (70-100)
[2018-01-10 13:55] LABS: BEDSIDE GLUCOSE 391 MG/DL (70-105)
[2018-01-10] MEDS: LIDOCAINE 1% MDV 20ML VIAL As Ordered (15:05)
[2018-01-10] MEDS: BUPIVACAINE HCL 0.5% 10 ML VIAL As Ordered (15:05)
[2018-01-10] MEDS ORDERED: fentaNYL 100 MCG/2 ML INJECTION (J3010) As Ordered (15:25)
[2018-01-10] MEDS ORDERED: MIDAZOLAM INJ 2 MG/2 ML VIAL (J2250) As Ordered (15:25)
[2018-01-10] MEDS ORDERED: PROPOFOL 200 MG/20 ML VIAL As Ordered (15:25)
[2018-01-10] MEDS ORDERED: LIDOCAINE 2% INJ 100 MG/5 ML SDV (FOR ANES.) As Ordered (15:25)
[2018-01-10] MEDS ORDERED: fentaNYL 100 MCG/2 ML INJECTION (J3010) IV (16:15)
[2018-01-10] MEDS ORDERED: PERCOCET 5MG/325MG TAB PO (16:15)
[2018-01-10] MEDS ORDERED: METOCLOPRAMIDE INJ 10MG/2ML VIAL (J2765) IV (16:15)
[2018-01-10] MEDS ORDERED: ONDANSETRON 4MG/2ML VIAL (J2405) IV (16:15)
[2018-01-10] MEDS: MORPHINE 4 MG/ML 1ML VIAL/SYRINGE (J2270) IV (18:52)
[2018-01-10 21:13] LABS: BEDSIDE GLUCOSE 279 MG/DL (70-105)
[2018-01-11] MEDS: HEPARIN SOD (PORCINE) 5000 UNITS/ML VIAL SC ×4 (00:03→23:19)
[2018-01-11] MEDS: MORPHINE 4 MG/ML 1ML VIAL/SYRINGE (J2270) IV ×3 (00:07→20:35)
[2018-01-11] MEDS: LevoFLOXacin IV 750 MG in APPROPRIATE DILUENT 1 EA IV (03:03)
[2018-01-11] MEDS: PERCOCET 5MG/325MG TAB PO ×4 (04:09→23:19)
[2018-01-11 05:46] LABS: HEMOGLOBIN 7.2 g/dl (13.5-17.5); MEAN CORPUSCULAR HEMOGLOBIN 28.3 pg (27.0-33.0); MEAN CORPUSCULAR HGB CONC 32.7 g/dl (32.0-36.5); MEAN CORPUSCULAR VOLUME 86.6 fl (80.0-96.0); PLATELET COUNT, AUTOMATED 227 10^3/uL (150-450); RED BLOOD COUNT 2.54 10^6/uL (4.30-6.10); RED CELL DISTRIBUTION WIDTH 12.8 % (11.5-14.5); WHITE BLOOD COUNT 7.8 10^3/uL (4.0-10.0)
[2018-01-11 06:10] LABS: ANION GAP 12 MEQ/L (8-16); BLOOD UREA NITROGEN 28 MG/DL (7-18); CALCIUM LEVEL 8.6 MG/DL (8.5-10.1); CARBON DIOXIDE LEVEL 19 MEQ/L (21-32); CHLORIDE LEVEL 99 MEQ/L (98-107); CREATININE FOR GFR 1.55 MG/DL (0.70-1.30); GLOMERULAR FILTRATION RATE 54.3 (>60); MAGNESIUM LEVEL 1.6 MG/DL (1.8-2.4); SODIUM LEVEL 130 MEQ/L (136-145)
[2018-01-11 06:18] LABS: GLUCOSE, FASTING 619 MG/DL (70-100); POTASSIUM SERUM 5.4 MEQ/L (3.5-5.1)
[2018-01-11] MEDS: LEVEMIR (INSULIN DETEMIR) 1 UNITS/0.01ML SC ×3 (06:59→10:15)
[2018-01-11] MEDS: NS 1,000 ML IV ×2 (07:00→13:45)
[2018-01-11] MEDS: HumaLOG INSULIN (NovoLOG) PER UNIT SC ×3 (07:00→20:41)
[2018-01-11] MEDS: GABAPENTIN 300 MG CAP PO ×3 (08:30→20:35)
[2018-01-11] MEDS: OMEPRAZOLE 20 MG CAP PO (08:31)
[2018-01-11] MEDS: LABETALOL 100 MG TAB PO ×2 (08:31→20:35)
[2018-01-11 09:08] LABS: BEDSIDE GLUCOSE 329 MG/DL (70-105)
[2018-01-11 09:08] LABS: BEDSIDE GLUCOSE > 600 MG/DL (70-105)
[2018-01-11 12:31] LABS: BEDSIDE GLUCOSE CONFIRMATION 604 MG/DL (LESS THAN 200)
[2018-01-11 12:34] LABS: BEDSIDE GLUCOSE > 600 MG/DL (70-105)
[2018-01-11] MEDS: INSULIN HUMAN REGULAR 100 UNITS in NS 99 ML IV (13:27)
[2018-01-11 14:29] LABS: BEDSIDE GLUCOSE 363 MG/DL (70-105)
[2018-01-11] MEDS: INSULIN IV RATE CHANGE DOCUMENTATION ML/HR XX (14:30)
[2018-01-11 15:33] LABS: BEDSIDE GLUCOSE 309 MG/DL (70-105)
[2018-01-11 16:31] LABS: BEDSIDE GLUCOSE 250 MG/DL (70-105)
[2018-01-11 17:29] LABS: BEDSIDE GLUCOSE 174 MG/DL (70-105)
[2018-01-11 18:16] LABS: BEDSIDE GLUCOSE 137 MG/DL (70-105)
[2018-01-11 19:05] LABS: HEMATOCRIT 21.9 % (42.0-52.0); HEMOGLOBIN 7.2 g/dl (13.5-17.5); MEAN CORPUSCULAR HEMOGLOBIN 27.9 pg (27.0-33.0); MEAN CORPUSCULAR HGB CONC 32.9 g/dl (32.0-36.5); MEAN CORPUSCULAR VOLUME 84.9 fl (80.0-96.0); PLATELET COUNT, AUTOMATED 255 10^3/uL (150-450); RED BLOOD COUNT 2.58 10^6/uL (4.30-6.10); RED CELL DISTRIBUTION WIDTH 12.7 % (11.5-14.5); WHITE BLOOD COUNT 6.4 10^3/uL (4.0-10.0)
[2018-01-11 19:32] LABS: ANION GAP 6 MEQ/L (8-16); BLOOD UREA NITROGEN 22 MG/DL (7-18); CARBON DIOXIDE LEVEL 27 MEQ/L (21-32); CHLORIDE LEVEL 105 MEQ/L (98-107); CREATININE FOR GFR 1.25 MG/DL (0.70-1.30); GLOMERULAR FILTRATION RATE > 60.0 (>60); GLUCOSE, FASTING 95 MG/DL (70-100); POTASSIUM SERUM 4.2 MEQ/L (3.5-5.1); SODIUM LEVEL 138 MEQ/L (136-145)
[2018-01-11] MEDS: SODIUM CHLORIDE 0.9% INJ 10 ML SYR IV (20:37)
[2018-01-11 20:43] LABS: BEDSIDE GLUCOSE 185 MG/DL (70-105)
[2018-01-11] MEDS ORDERED: HumaLOG INSULIN (NovoLOG) PER UNIT SC (21:00)
[2018-01-12] MEDS: LevoFLOXacin IV 750 MG in APPROPRIATE DILUENT 1 EA IV (02:00)
[2018-01-12] MEDS: SODIUM CHLORIDE 0.9% INJ 10 ML SYR IV ×2 (04:27→18:00)
[2018-01-12 04:33] LABS: HEMATOCRIT 21.4 % (42.0-52.0); HEMOGLOBIN 7.1 g/dl (13.5-17.5); MEAN CORPUSCULAR HEMOGLOBIN 28.2 pg (27.0-33.0); MEAN CORPUSCULAR HGB CONC 33.2 g/dl (32.0-36.5); MEAN CORPUSCULAR VOLUME 84.9 fl (80.0-96.0); PLATELET COUNT, AUTOMATED 249 10^3/uL (150-450); RED BLOOD COUNT 2.52 10^6/uL (4.30-6.10); RED CELL DISTRIBUTION WIDTH 12.6 % (11.5-14.5)
[2018-01-12 05:00] LABS: ANION GAP 8 MEQ/L (8-16); BLOOD UREA NITROGEN 20 MG/DL (7-18); CALCIUM LEVEL 7.8 MG/DL (8.5-10.1); CARBON DIOXIDE LEVEL 26 MEQ/L (21-32); CHLORIDE LEVEL 101 MEQ/L (98-107); CREATININE FOR GFR 1.27 MG/DL (0.70-1.30); GLOMERULAR FILTRATION RATE > 60.0 (>60); MAGNESIUM LEVEL 1.6 MG/DL (1.8-2.4); POTASSIUM SERUM 4.7 MEQ/L (3.5-5.1); SODIUM LEVEL 135 MEQ/L (136-145)
[2018-01-12 05:04] LABS: GLUCOSE, FASTING 406 MG/DL (70-100)
[2018-01-12] MEDS: HumaLOG INSULIN (NovoLOG) PER UNIT SC ×4 (05:35→21:00)
[2018-01-12] MEDS: HEPARIN SOD (PORCINE) 5000 UNITS/ML VIAL SC ×3 (05:35→21:09)
[2018-01-12 08:04] LABS: BEDSIDE GLUCOSE 272 MG/DL (70-105)
[2018-01-12] MEDS: OMEPRAZOLE 20 MG CAP PO (08:29)
[2018-01-12] MEDS: GABAPENTIN 300 MG CAP PO ×3 (08:29→21:08)
[2018-01-12] MEDS: LABETALOL 100 MG TAB PO ×2 (08:30→21:08)
[2018-01-12] MEDS: MAG SULF 1GM/100ML (MAG RUN) 1 GM in APPROPRIATE DILUENT 1 EA IV (08:31)
[2018-01-12] MEDS: LEVEMIR (INSULIN DETEMIR) 1 UNITS/0.01ML SC (08:31)
[2018-01-12] MEDS: PERCOCET 5MG/325MG TAB PO ×3 (08:37→23:59)
[2018-01-12 10:20] LABS: IMMEDIATE SPIN CROSSMATCH 1 1
[2018-01-12 11:52] LABS: BEDSIDE GLUCOSE 462 MG/DL (70-105)
[2018-01-13 01:07] LABS: HEMATOCRIT 23.8 % (42.0-52.0)
[2018-01-13] MEDS: LevoFLOXacin IV 750 MG in APPROPRIATE DILUENT 1 EA IV (01:11)
[2018-01-13] MEDS: PERCOCET 5MG/325MG TAB PO ×5 (03:58→22:02)
[2018-01-13] MEDS: SODIUM CHLORIDE 0.9% INJ 10 ML SYR IV ×2 (03:59→17:54)
[2018-01-13 04:38] LABS: ANION GAP 5 MEQ/L (8-16); BLOOD UREA NITROGEN 15 MG/DL (7-18); CALCIUM LEVEL 8.6 MG/DL (8.5-10.1); CARBON DIOXIDE LEVEL 28 MEQ/L (21-32); CHLORIDE LEVEL 104 MEQ/L (98-107); CREATININE FOR GFR 1.14 MG/DL (0.70-1.30); GLOMERULAR FILTRATION RATE > 60.0 (>60); GLUCOSE, FASTING 157 MG/DL (70-100); MAGNESIUM LEVEL 1.6 MG/DL (1.8-2.4); POTASSIUM SERUM 3.7 MEQ/L (3.5-5.1); SODIUM LEVEL 137 MEQ/L (136-145)
[2018-01-13 04:44] LABS: HEMATOCRIT 24.4 % (42.0-52.0); MEAN CORPUSCULAR HEMOGLOBIN 27.9 pg (27.0-33.0); MEAN CORPUSCULAR HGB CONC 32.8 g/dl (32.0-36.5); PLATELET COUNT, AUTOMATED 263 10^3/uL (150-450); RED BLOOD COUNT 2.87 10^6/uL (4.30-6.10); RED CELL DISTRIBUTION WIDTH 12.7 % (11.5-14.5); WHITE BLOOD COUNT 6.2 10^3/uL (4.0-10.0)
[2018-01-13] MEDS: GABAPENTIN 300 MG CAP PO ×3 (08:13→20:29)
[2018-01-13] MEDS: OMEPRAZOLE 20 MG CAP PO (08:13)
[2018-01-13] MEDS: HumaLOG INSULIN (NovoLOG) PER UNIT SC ×4 (08:15→22:02)
[2018-01-13] MEDS: LABETALOL 100 MG TAB PO ×2 (08:17→20:30)
[2018-01-13] MEDS: VANCOMYCIN HCL 1,000 MG, VIAL MATE ADAPTER 1 EACH in D5W 250 ML IV ×2 (08:36→20:30)
[2018-01-13] MEDS: LEVEMIR (INSULIN DETEMIR) 1 UNITS/0.01ML SC (08:36)
[2018-01-13] MEDS: VANCOMYCIN HCL 750 MG, VIAL MATE ADAPTER 1 EACH in D5W 250 ML IV (10:03)
[2018-01-13 10:11] LABS: BEDSIDE GLUCOSE 192 MG/DL (70-105)
[2018-01-13 10:12] LABS: BEDSIDE GLUCOSE 153 MG/DL (70-105)
[2018-01-13 10:13] LABS: BEDSIDE GLUCOSE 163 MG/DL (70-105)
[2018-01-13 11:58] LABS: BEDSIDE GLUCOSE 262 MG/DL (70-105)
[2018-01-13] MEDS: MAG SULF 1GM/100ML (MAG RUN) 1 GM in APPROPRIATE DILUENT 1 EA IV (12:01)
[2018-01-13] MEDS: HEPARIN SOD (PORCINE) 5000 UNITS/ML VIAL SC ×2 (13:13→22:01)
[2018-01-13 14:23] LABS: BEDSIDE GLUCOSE 51 MG/DL (70-105)
[2018-01-13] MEDS: DEXTROSE 50% 50 ML SYRINGE IV ×2 (14:25→15:01)
[2018-01-13 14:46] LABS: BEDSIDE GLUCOSE 85 MG/DL (70-105)
[2018-01-13] MEDS: MORPHINE 4 MG/ML 1ML VIAL/SYRINGE (J2270) IV ×2 (15:07→20:31)
[2018-01-13 15:13] LABS: BEDSIDE GLUCOSE 67 MG/DL (70-105)
[2018-01-13 15:15] LABS: BEDSIDE GLUCOSE 100 MG/DL (70-105)
[2018-01-13] MEDS: D5W 500 ML IV (15:35)
[2018-01-13] MEDS: BUPIVACAINE HCL 0.5% 10 ML VIAL As Ordered (16:14)
[2018-01-13] MEDS: LIDOCAINE 1% MDV 20ML VIAL As Ordered (16:14)
[2018-01-13] MEDS ORDERED: MIDAZOLAM INJ 2 MG/2 ML VIAL (J2250) As Ordered (16:22)
[2018-01-13] MEDS ORDERED: fentaNYL 100 MCG/2 ML INJECTION (J3010) As Ordered (16:22)
[2018-01-13] MEDS ORDERED: LIDOCAINE 2% INJ 100 MG/5 ML SDV (FOR ANES.) As Ordered (16:22)
[2018-01-13] MEDS ORDERED: PROPOFOL 200 MG/20 ML VIAL As Ordered (16:22)
[2018-01-13 17:00] LABS: BEDSIDE GLUCOSE 60 MG/DL (70-105)
[2018-01-13] MEDS ORDERED: ONDANSETRON 4MG/2ML VIAL (J2405) IV (17:30)
[2018-01-13] MEDS ORDERED: LR 1,000 ML IV (17:30)
[2018-01-13] MEDS ORDERED: fentaNYL 100 MCG/2 ML INJECTION (J3010) IV (17:30)
[2018-01-13] MEDS ORDERED: PERCOCET 5MG/325MG TAB PO (17:30)
[2018-01-13] MEDS ORDERED: METOCLOPRAMIDE INJ 10MG/2ML VIAL (J2765) IV (17:30)
[2018-01-13 17:50] LABS: BEDSIDE GLUCOSE 89 MG/DL (70-105)
[2018-01-13 20:10] LABS: BEDSIDE GLUCOSE 241 MG/DL (70-105)
[2018-01-13 21:58] LABS: BEDSIDE GLUCOSE 408 MG/DL (70-105)
[2018-01-14] MEDS: PERCOCET 5MG/325MG TAB PO ×6 (02:04→23:07)
[2018-01-14 05:11] LABS: HEMATOCRIT 22.2 % (42.0-52.0); HEMOGLOBIN 7.2 g/dl (13.5-17.5); MEAN CORPUSCULAR HEMOGLOBIN 27.6 pg (27.0-33.0); MEAN CORPUSCULAR HGB CONC 32.4 g/dl (32.0-36.5); MEAN CORPUSCULAR VOLUME 85.1 fl (80.0-96.0); PLATELET COUNT, AUTOMATED 216 10^3/uL (150-450); RED BLOOD COUNT 2.61 10^6/uL (4.30-6.10); RED CELL DISTRIBUTION WIDTH 12.8 % (11.5-14.5); WHITE BLOOD COUNT 6.2 10^3/uL (4.0-10.0)
[2018-01-14 05:33] LABS: ANION GAP 5 MEQ/L (8-16); BLOOD UREA NITROGEN 15 MG/DL (7-18); CALCIUM LEVEL 7.9 MG/DL (8.5-10.1); CARBON DIOXIDE LEVEL 27 MEQ/L (21-32); CHLORIDE LEVEL 101 MEQ/L (98-107); CREATININE FOR GFR 1.18 MG/DL (0.70-1.30); GLOMERULAR FILTRATION RATE > 60.0 (>60); MAGNESIUM LEVEL 1.6 MG/DL (1.8-2.4); POTASSIUM SERUM 4.7 MEQ/L (3.5-5.1); SODIUM LEVEL 133 MEQ/L (136-145)
[2018-01-14 05:36] LABS: GLUCOSE, FASTING 462 MG/DL (70-100)
[2018-01-14] MEDS: SODIUM CHLORIDE 0.9% INJ 10 ML SYR IV ×2 (06:00→18:40)
[2018-01-14] MEDS: HEPARIN SOD (PORCINE) 5000 UNITS/ML VIAL SC ×3 (06:10→21:39)
[2018-01-14] MEDS: MAG SULF 1GM/100ML (MAG RUN) 1 GM in APPROPRIATE DILUENT 1 EA IV (08:00)
[2018-01-14] MEDS: HumaLOG INSULIN (NovoLOG) PER UNIT SC ×4 (08:36→21:00)
[2018-01-14] MEDS: LEVEMIR (INSULIN DETEMIR) 1 UNITS/0.01ML SC (08:37)
[2018-01-14] MEDS: VANCOMYCIN HCL 1,000 MG, VIAL MATE ADAPTER 1 EACH in D5W 250 ML IV (08:38)
[2018-01-14] MEDS: GABAPENTIN 300 MG CAP PO ×3 (08:39→21:39)
[2018-01-14] MEDS: OMEPRAZOLE 20 MG CAP PO (08:39)
[2018-01-14] MEDS: LABETALOL 100 MG TAB PO ×2 (08:39→21:40)
[2018-01-14] MEDS: MORPHINE 4 MG/ML 1ML VIAL/SYRINGE (J2270) IV ×2 (09:00→13:33)
[2018-01-14 10:43] LABS: IMMEDIATE SPIN CROSSMATCH 1 1
[2018-01-14 12:19] LABS: BEDSIDE GLUCOSE 481 MG/DL (70-105)
[2018-01-14 16:55] LABS: BEDSIDE GLUCOSE 150 MG/DL (70-105)
[2018-01-14 20:56] LABS: VANCOMYCIN LEVEL TROUGH 13.8 UG/ML (10.0-20.0)
[2018-01-14 21:25] LABS: BEDSIDE GLUCOSE 32 MG/DL (70-105)
[2018-01-14 21:27] LABS: BEDSIDE GLUCOSE 92 MG/DL (70-105)
[2018-01-14] MEDS ORDERED: VANCOMYCIN 1000 MG/20 ML VIAL (J3370) As Ordered (22:03)
[2018-01-14] MEDS: VANCOMYCIN HCL 1,000 MG, VIAL MATE ADAPTER 1 EACH in NS 250 ML IV (22:10)
[2018-01-15] MEDS: PERCOCET 5MG/325MG TAB PO ×5 (04:06→22:01)
[2018-01-15] MEDS: HEPARIN SOD (PORCINE) 5000 UNITS/ML VIAL SC ×3 (05:16→21:59)
[2018-01-15] MEDS: SODIUM CHLORIDE 0.9% INJ 10 ML SYR IV ×3 (05:16→22:00)
[2018-01-15 05:31] LABS: HEMATOCRIT 24.2 % (42.0-52.0); HEMOGLOBIN 7.9 g/dl (13.5-17.5); MEAN CORPUSCULAR HEMOGLOBIN 27.7 pg (27.0-33.0); MEAN CORPUSCULAR HGB CONC 32.6 g/dl (32.0-36.5); MEAN CORPUSCULAR VOLUME 84.9 fl (80.0-96.0); PLATELET COUNT, AUTOMATED 234 10^3/uL (150-450); RED BLOOD COUNT 2.85 10^6/uL (4.30-6.10); RED CELL DISTRIBUTION WIDTH 12.6 % (11.5-14.5); WHITE BLOOD COUNT 5.1 10^3/uL (4.0-10.0)
[2018-01-15 05:52] LABS: ANION GAP 4 MEQ/L (8-16); BLOOD UREA NITROGEN 14 MG/DL (7-18); CALCIUM LEVEL 8.4 MG/DL (8.5-10.1); CARBON DIOXIDE LEVEL 30 MEQ/L (21-32); CHLORIDE LEVEL 104 MEQ/L (98-107); CREATININE FOR GFR 1.12 MG/DL (0.70-1.30); GLOMERULAR FILTRATION RATE > 60.0 (>60); GLUCOSE, FASTING 175 MG/DL (70-100); POTASSIUM SERUM 4.4 MEQ/L (3.5-5.1); SODIUM LEVEL 138 MEQ/L (136-145)
[2018-01-15] MEDS: LEVEMIR (INSULIN DETEMIR) 1 UNITS/0.01ML SC (07:57)
[2018-01-15] MEDS: OMEPRAZOLE 20 MG CAP PO (07:58)
[2018-01-15] MEDS: LABETALOL 100 MG TAB PO ×2 (07:58→23:04)
[2018-01-15] MEDS: HumaLOG INSULIN (NovoLOG) PER UNIT SC ×4 (07:58→21:00)
[2018-01-15] MEDS: GABAPENTIN 300 MG CAP PO ×3 (07:58→21:59)
[2018-01-15] MEDS: amLODIPine 5 MG TAB PO (09:24)
[2018-01-15] MEDS: VANCOMYCIN HCL 1,000 MG, VIAL MATE ADAPTER 1 EACH in NS 250 ML IV ×2 (10:05→21:59)
[2018-01-15] MEDS ORDERED: HumaLOG INSULIN (NovoLOG) PER UNIT SC (12:00)
[2018-01-15 12:06] LABS: BEDSIDE GLUCOSE 254 MG/DL (70-105)
[2018-01-15 17:08] LABS: BEDSIDE GLUCOSE 174 MG/DL (70-105)
[2018-01-15 20:39] LABS: BEDSIDE GLUCOSE 180 MG/DL (70-105)
[2018-01-15 23:14] LABS: BEDSIDE GLUCOSE 204 MG/DL (70-105)
[2018-01-16] MEDS: SODIUM CHLORIDE 0.9% INJ 10 ML SYR IV ×3 (05:39→23:29)
[2018-01-16 05:48] LABS: HEMATOCRIT 25.7 % (42.0-52.0); HEMOGLOBIN 8.4 g/dl (13.5-17.5); MEAN CORPUSCULAR HEMOGLOBIN 28.1 pg (27.0-33.0); MEAN CORPUSCULAR HGB CONC 32.7 g/dl (32.0-36.5); PLATELET COUNT, AUTOMATED 284 10^3/uL (150-450); RED BLOOD COUNT 2.99 10^6/uL (4.30-6.10); RED CELL DISTRIBUTION WIDTH 12.8 % (11.5-14.5)
[2018-01-16] MEDS: PERCOCET 5MG/325MG TAB PO ×4 (05:49→21:39)
[2018-01-16 06:26] LABS: ANION GAP 8 MEQ/L (8-16); BLOOD UREA NITROGEN 18 MG/DL (7-18); C REACTIVE PROTEIN QUANTITATIV 7.93 MG/DL (0.00-0.30); CALCIUM LEVEL 8.1 MG/DL (8.5-10.1); CARBON DIOXIDE LEVEL 26 MEQ/L (21-32); CHLORIDE LEVEL 102 MEQ/L (98-107); CREATININE FOR GFR 1.25 MG/DL (0.70-1.30); GLOMERULAR FILTRATION RATE > 60.0 (>60); MAGNESIUM LEVEL 1.9 MG/DL (1.8-2.4); POTASSIUM SERUM 4.9 MEQ/L (3.5-5.1); SODIUM LEVEL 136 MEQ/L (136-145)
[2018-01-16 06:35] LABS: GLUCOSE, FASTING 417 MG/DL (70-100)
[2018-01-16] MEDS: HumaLOG INSULIN (NovoLOG) PER UNIT SC ×5 (07:30→21:27)
[2018-01-16] MEDS: OMEPRAZOLE 20 MG CAP PO (07:44)
[2018-01-16] MEDS: VANCOMYCIN HCL 1,000 MG, VIAL MATE ADAPTER 1 EACH in NS 250 ML IV ×3 (07:45→21:29)
[2018-01-16] MEDS: GABAPENTIN 300 MG CAP PO ×3 (07:45→21:27)
[2018-01-16] MEDS: amLODIPine 5 MG TAB PO (07:46)
[2018-01-16] MEDS: LABETALOL 100 MG TAB PO ×2 (07:47→21:44)
[2018-01-16] MEDS: LEVEMIR (INSULIN DETEMIR) 1 UNITS/0.01ML SC ×2 (07:48→21:28)
[2018-01-16] MEDS ORDERED: fentaNYL 100 MCG/2 ML INJECTION (J3010) As Ordered (08:04)
[2018-01-16] MEDS ORDERED: LIDOCAINE 2% INJ 100 MG/5 ML SDV (FOR ANES.) As Ordered (08:04)
[2018-01-16] MEDS ORDERED: PROPOFOL 200 MG/20 ML VIAL As Ordered (08:04)
[2018-01-16] MEDS ORDERED: MIDAZOLAM INJ 2 MG/2 ML VIAL (J2250) As Ordered (08:05)
[2018-01-16] MEDS ORDERED: LEVEMIR (INSULIN DETEMIR) 1 UNITS/0.01ML SC (09:00)
[2018-01-16] MEDS: BUPIVACAINE HCL 0.5% 10 ML VIAL As Ordered (09:18)
[2018-01-16] MEDS: LIDOCAINE 1% MDV 20ML VIAL As Ordered (09:18)
[2018-01-16] MEDS: VANCOMYCIN HCL 500 MG/10 ML VIAL (J3370) As Ordered (09:20)
[2018-01-16] MEDS: NS 1,000 ML IV (09:58)
[2018-01-16] MEDS ORDERED: HumaLOG INSULIN (NovoLOG) PER UNIT As Ordered (10:00)
[2018-01-16 10:06] LABS: BEDSIDE GLUCOSE 314 MG/DL (70-105)
[2018-01-16] MEDS ORDERED: fentaNYL 100 MCG/2 ML INJECTION (J3010) IV (10:15)
[2018-01-16] MEDS ORDERED: ONDANSETRON 4MG/2ML VIAL (J2405) IV (10:15)
[2018-01-16 12:09] LABS: BEDSIDE GLUCOSE 351 MG/DL (70-105)
[2018-01-16 16:46] LABS: BEDSIDE GLUCOSE 232 MG/DL (70-105)
[2018-01-16 20:23] LABS: BEDSIDE GLUCOSE 250 MG/DL (70-105)
[2018-01-16 22:57] LABS: BEDSIDE GLUCOSE 337 MG/DL (70-105)
[2018-01-17 00:05] LABS: BEDSIDE GLUCOSE 319 MG/DL (70-105)
[2018-01-17] MEDS: SODIUM CHLORIDE 0.9% INJ 10 ML SYR IV ×3 (05:51→18:00)
[2018-01-17 06:22] LABS: BEDSIDE GLUCOSE 402 MG/DL (70-105)
[2018-01-17] MEDS: PERCOCET 5MG/325MG TAB PO ×4 (06:33→21:14)
[2018-01-17 08:03] LABS: HEMATOCRIT 24.4 % (42.0-52.0); MEAN CORPUSCULAR HEMOGLOBIN 27.7 pg (27.0-33.0); MEAN CORPUSCULAR HGB CONC 32.8 g/dl (32.0-36.5); MEAN CORPUSCULAR VOLUME 84.4 fl (80.0-96.0); PLATELET COUNT, AUTOMATED 295 10^3/uL (150-450); RED BLOOD COUNT 2.89 10^6/uL (4.30-6.10); RED CELL DISTRIBUTION WIDTH 12.7 % (11.5-14.5); WHITE BLOOD COUNT 5.4 10^3/uL (4.0-10.0)
[2018-01-17 08:38] LABS: ANION GAP 9 MEQ/L (8-16); BLOOD UREA NITROGEN 16 MG/DL (7-18); C REACTIVE PROTEIN QUANTITATIV 5.16 MG/DL (0.00-0.30); CALCIUM LEVEL 8.3 MG/DL (8.5-10.1); CARBON DIOXIDE LEVEL 27 MEQ/L (21-32); CHLORIDE LEVEL 100 MEQ/L (98-107); CREATININE FOR GFR 1.14 MG/DL (0.70-1.30); GLOMERULAR FILTRATION RATE > 60.0 (>60); MAGNESIUM LEVEL 1.8 MG/DL (1.8-2.4); POTASSIUM SERUM 4.7 MEQ/L (3.5-5.1); SODIUM LEVEL 136 MEQ/L (136-145)
[2018-01-17 08:39] LABS: VANCOMYCIN LEVEL TROUGH 15.9 UG/ML (10.0-20.0)
[2018-01-17 08:41] LABS: GLUCOSE, FASTING 434 MG/DL (70-100)
[2018-01-17] MEDS: LEVEMIR (INSULIN DETEMIR) 1 UNITS/0.01ML SC ×2 (09:00→21:13)
[2018-01-17] MEDS: HumaLOG INSULIN (NovoLOG) PER UNIT SC ×4 (09:01→21:13)
[2018-01-17] MEDS: amLODIPine 5 MG TAB PO (09:10)
[2018-01-17] MEDS: APIXABAN 5 MG TAB (ELIQUIS) PO ×2 (09:10→21:12)
[2018-01-17] MEDS: GABAPENTIN 300 MG CAP PO ×3 (09:11→21:12)
[2018-01-17] MEDS: OMEPRAZOLE 20 MG CAP PO (09:11)
[2018-01-17] MEDS: VANCOMYCIN HCL 1,000 MG, VIAL MATE ADAPTER 1 EACH in NS 250 ML IV (09:11)
[2018-01-17] MEDS: LABETALOL 100 MG TAB PO ×2 (09:11→21:12)
[2018-01-17 11:45] LABS: BEDSIDE GLUCOSE 185 MG/DL (70-105)
[2018-01-17] MEDS: LINEZOLID 600MG TABLET (ZYVOX) PO (11:56)
[2018-01-17 12:14] LABS: BEDSIDE GLUCOSE 435 MG/DL (70-105)
[2018-01-17 16:50] LABS: BEDSIDE GLUCOSE 167 MG/DL (70-105)
[2018-01-17 18:25] LABS: BEDSIDE GLUCOSE 144 MG/DL (70-105)
[2018-01-17 20:39] LABS: BEDSIDE GLUCOSE 305 MG/DL (70-105)
[2018-01-17] MEDS: CLINDAMYCIN 150 MG CAP PO (21:11)
[2018-01-18] MEDS: PERCOCET 5MG/325MG TAB PO ×2 (06:26→12:51)
[2018-01-18 06:40] LABS: HEMATOCRIT 25.9 % (42.0-52.0); HEMOGLOBIN 8.6 g/dl (13.5-17.5); MEAN CORPUSCULAR HGB CONC 33.2 g/dl (32.0-36.5); MEAN CORPUSCULAR VOLUME 84.4 fl (80.0-96.0); PLATELET COUNT, AUTOMATED 347 10^3/uL (150-450); RED BLOOD COUNT 3.07 10^6/uL (4.30-6.10); RED CELL DISTRIBUTION WIDTH 12.8 % (11.5-14.5); WHITE BLOOD COUNT 5.8 10^3/uL (4.0-10.0)
[2018-01-18 06:48] LABS: ADD MANUAL DIFFER YES; DIFF SLIDE NUMBER 48; POS COUNT POS FLAG; POSITIVE MORPH POS FLAG
[2018-01-18 06:56] LABS: ANION GAP 6 MEQ/L (8-16); BLOOD UREA NITROGEN 13 MG/DL (7-18); CALCIUM LEVEL 8.8 MG/DL (8.5-10.1); CARBON DIOXIDE LEVEL 28 MEQ/L (21-32); CHLORIDE LEVEL 104 MEQ/L (98-107); CREATININE FOR GFR 1.06 MG/DL (0.70-1.30); GLOMERULAR FILTRATION RATE > 60.0 (>60); GLUCOSE, FASTING 263 MG/DL (70-100); MAGNESIUM LEVEL 1.7 MG/DL (1.8-2.4); POTASSIUM SERUM 4.1 MEQ/L (3.5-5.1); SODIUM LEVEL 138 MEQ/L (136-145)
[2018-01-18 07:19] LABS: ANISOCYTOSIS 1+; BANDS 2 % (< 11); BASOPHILS 1 % (0-4); LYMPHOCYTES 14 % (16-52); MONOCYTES 5 % (0-8); MYELOCYTES 2 % (0-0); NEUTROPHILS 76 % (35-75); PLATELET ESTIMATE NORMAL (NORMAL)
[2018-01-18] MEDS: HumaLOG INSULIN (NovoLOG) PER UNIT SC ×2 (09:02→12:51)
[2018-01-18] MEDS: LEVEMIR (INSULIN DETEMIR) 1 UNITS/0.01ML SC (09:02)
[2018-01-18] MEDS: amLODIPine 5 MG TAB PO (09:02)
[2018-01-18] MEDS: GABAPENTIN 300 MG CAP PO (09:02)
[2018-01-18] MEDS: CLINDAMYCIN 150 MG CAP PO ×2 (09:03→12:50)
[2018-01-18] MEDS: OMEPRAZOLE 20 MG CAP PO (09:03)
[2018-01-18] MEDS: APIXABAN 5 MG TAB (ELIQUIS) PO (09:03)
[2018-01-18] MEDS: LABETALOL 100 MG TAB PO (09:06)
[2018-01-18 11:30] LABS: BEDSIDE GLUCOSE 396 MG/DL (70-105)
== END 2018-01-18 14:14 | disposition home or self-care (01) | DRG 314 ==
LOC: M PCU 01-10 14:40 → M ICU 01-11 12:51 → M PCU 01-14 15:05 → M ED 23:44 → M MSPAV 01-15 11:44 → M ED INP 01-09 04:40 → M MS5PR 01-09 09:35
PROC: 0Y6Q0Z1 Detachment at Left 1st Toe, High, Open Approach (ICD-10-PCS; principal; 2018-01-10 08:00)
PROC: 30233N1 Transfusion of Nonautologous Red Blood Cells into Peripheral Vein, Percutaneous Approach (ICD-10-PCS; 2018-01-10 14:58)
PROC: 0JBR0ZZ Excision of Left Foot Subcutaneous Tissue and Fascia, Open Approach (ICD-10-PCS; 2018-01-10 14:58)
PROC: 02HV33Z Insertion of Infusion Device into Superior Vena Cava, Percutaneous Approach (ICD-10-PCS; 2018-01-10 14:58)
DX: E10.69 Type 1 diabetes mellitus with other specified complication (principal); E10.21 Type 1 diabetes mellitus with diabetic nephropathy; M86.172 Other acute osteomyelitis, left ankle and foot; I80.8 Phlebitis and thrombophlebitis of other sites; E10.40 Type 1 diabetes mellitus with diabetic neuropathy, unspecified; E87.1 Hypo-osmolality and hyponatremia; N18.3 Chronic kidney disease, stage 3 (moderate); K21.9 Gastro-esophageal reflux disease without esophagitis; I12.9 Hypertensive chronic kidney disease with stage 1 through stage 4 chronic kidney disease, or unspecified chronic kidney disease; D64.9 Anemia, unspecified; Z79.899 Other long term (current) drug therapy; L03.032 Cellulitis of left toe; Z79.4 Long term (current) use of insulin; Z88.0 Allergy status to penicillin; Z88.8 Allergy status to other drugs, medicaments and biological substances; B95.61 Methicillin susceptible Staphylococcus aureus infection as the cause of diseases classified elsewhere; R00.0 Tachycardia, unspecified; Z91.19 Patient's noncompliance with other medical treatment and regimen; E10.649 Type 1 diabetes mellitus with hypoglycemia without coma; E10.319 Type 1 diabetes mellitus with unspecified diabetic retinopathy without macular edema

== ENCOUNTER → 2018-04-01 | Outpatient (CLI) | payer OTHER | LOC: M EKG 07:53 | DX: R42 Dizziness and giddiness (principal) | CPT/HCPCS: 93005 ==

== ENCOUNTER 2018-04-03 22:10 | Inpatient (IN) | payer OTHER ==
[2018-04-04] MEDS: VANCOMYCIN HCL 1,000 MG, VIAL MATE ADAPTER 1 EACH in D5W 250 ML IV ×2 (00:30→14:35)
[2018-04-04] MEDS: CLINDAMYCIN 600 MG in APPROPRIATE DILUENT 1 EA IV (00:30)
[2018-04-04] MEDS: NS 2,320 ML in APPROPRIATE DILUENT 1 EA IV (00:30)
[2018-04-04] MEDS: KETOROLAC 30 MG/ML VIAL (J1885) IV (01:30)
[2018-04-04 01:32] LABS: APPEARANCE, URINE CLEAR (CLEAR); BACTERIA, URINE AUTO NEGATIVE (NEGATIVE); BILIRUBIN, URINE AUTO NEGATIVE (NEGATIVE); BLOOD, URINE BLOOD 1+ (NEGATIVE); COLOR, URINE YELLOW (YELLOW); GLUCOSE, URINE (UA) AUTO NEGATIVE (NEGATIVE); KETONE, URINE AUTO NEGATIVE (NEGATIVE); LEUKOCYTE ESTERASE, URINE AUTO NEGATIVE (NEGATIVE); NITRITE, URINE AUTO NEGATIVE (NEGATIVE); PROTEIN, URINE AUTO NEGATIVE (NEGATIVE); RBC, URINE AUTO 4 /HPF (0-3); SPECIFIC GRAVITY URINE AUTO 1.009 (1.002-1.035); SQUAMOUS EPITHELIAL CELL UR AU 0 /HPF (0-6); UROBILINOGEN, URINE AUTO 0.2 mg/dL (0.0-2.0); WBC, URINE AUTO 1 /HPF (0-3)
[2018-04-04 01:38] LABS: INR 1.15; PROTHROMBIN TIME 14.9 SECONDS (12.1-14.4)
[2018-04-04 01:39] LABS: BASO % 0.4 % (0.0-1.0); EOS # 0.1 10^3/uL (0.0-0.50); EOS % 0.9 % (0.0-3.0); HEMATOCRIT 25.7 % (42.0-52.0); HEMOGLOBIN 8.3 g/dl (13.5-17.5); IMMATURE GRANULOCYTE % 0.3 % (0-3.0); LYMPH # 1.1 10^3/uL (1.5-4.5); LYMPH % 10.2 % (24.0-44.0); MEAN CORPUSCULAR HEMOGLOBIN 27.2 pg (27.0-33.0); MEAN CORPUSCULAR HGB CONC 32.3 g/dl (32.0-36.5); MEAN CORPUSCULAR VOLUME 84.3 fl (80.0-96.0); MONO % 8.9 % (0.0-5.0); NEUTROPHILS # 8.8 10^3/uL (1.8-7.7); NEUTROPHILS % 79.3 % (36.0-66.0); PLATELET COUNT, AUTOMATED 427 10^3/uL (150-450); RED BLOOD COUNT 3.05 10^6/uL (4.30-6.10); RED CELL DISTRIBUTION WIDTH 13.4 % (11.5-14.5)
[2018-04-04 01:48] LABS: ALBUMIN 3.1 GM/DL (3.2-5.2); ALBUMIN/GLOBULIN RATIO 0.66 (1.00-1.93); ALKALINE PHOSPHATASE 89 U/L (45-117); ALT/SGPT 15 U/L (12-78); AMYLASE 35 U/L (25-115); ANION GAP 9 MEQ/L (8-16); AST/SGOT 11 U/L (7-37); BILIRUBIN,DIRECT 0.1 MG/DL (0.0-0.2); BILIRUBIN,TOTAL 0.5 MG/DL (0.2-1.0); BLOOD UREA NITROGEN 27 MG/DL (7-18); CALCIUM LEVEL 9.1 MG/DL (8.5-10.1); CARBON DIOXIDE LEVEL 26 MEQ/L (21-32); CHLORIDE LEVEL 100 MEQ/L (98-107); CREATININE FOR GFR 1.65 MG/DL (0.70-1.30); GLOMERULAR FILTRATION RATE 50.5 (>60); GLUCOSE, FASTING 182 MG/DL (70-100); SODIUM LEVEL 135 MEQ/L (136-145); TOTAL PROTEIN 7.8 GM/DL (6.4-8.2)
[2018-04-04 01:51] LABS: LACTIC ACID SEPSIS PROTOCOL 0.8 MMOL/L (0.4-2.0)
[2018-04-04 01:58] LABS: ABG BASE EXCESS -5.2 (-2.0-2.0); ABG HCO3 19.2 MEQ/L (22.0-26.0); ABG O2 SATURATION 95.1 % (95.0-99.0); ABG PARTIAL PRESSURE O2 77.2 mmHg (75.0-100.0); ABG STANDARD HCO3 20.1 MEQ/L (22.0-26.0); ABG TOTAL CO2 20.2 MEQ/L (22.0-29.0); ABG pH (ARTERIAL) 7.383 UNITS (7.350-7.450)
[2018-04-04] MEDS: NS 1,000 ML IV ×2 (02:42→23:01)
[2018-04-04] MEDS ORDERED: DEXTROSE 50% 50 ML SYRINGE IV (02:45)
[2018-04-04] MEDS ORDERED: GLUCOSE 4 GM CHEW TABLET PO (02:45)
[2018-04-04] MEDS ORDERED: GLUCAGON FOR INJ 1 MG VIAL (J1610) SC (02:45)
[2018-04-04] MEDS: MORPHINE 4 MG/ML 1ML VIAL/SYRINGE (J2270) IV (03:00)
[2018-04-04] MEDS: HEPARIN SOD (PORCINE) 5000 UNITS/ML VIAL SC ×3 (05:00→20:53)
[2018-04-04] MEDS: ONDANSETRON 4MG/2ML VIAL (J2405) IV (05:00)
[2018-04-04] MEDS: MEROPENEM INJ 500 MG in APPROPRIATE DILUENT 1 EA IV ×2 (05:02→16:43)
[2018-04-04] MEDS ORDERED: VANCOMYCIN HCL 1,000 MG, VIAL MATE ADAPTER 1 EACH in D5W 250 ML IV (06:00)
[2018-04-04 07:21] LABS: BASO % 0.3 % (0.0-1.0); EOS # 0.1 10^3/uL (0.0-0.50); EOS % 1.1 % (0.0-3.0); HEMATOCRIT 24.3 % (42.0-52.0); IMMATURE GRANULOCYTE % 0.3 % (0-3.0); LYMPH # 0.7 10^3/uL (1.5-4.5); LYMPH % 10.2 % (24.0-44.0); MEAN CORPUSCULAR HEMOGLOBIN 27.2 pg (27.0-33.0); MEAN CORPUSCULAR HGB CONC 32.9 g/dl (32.0-36.5); MEAN CORPUSCULAR VOLUME 82.7 fl (80.0-96.0); MONO # 0.7 10^3/uL (0.0-0.8); MONO % 10.2 % (0.0-5.0); NEUTROPHILS # 5.5 10^3/uL (1.8-7.7); NEUTROPHILS % 77.9 % (36.0-66.0); PLATELET COUNT, AUTOMATED 348 10^3/uL (150-450); RED BLOOD COUNT 2.94 10^6/uL (4.30-6.10); RED CELL DISTRIBUTION WIDTH 13.4 % (11.5-14.5); WHITE BLOOD COUNT 7.1 10^3/uL (4.0-10.0)
[2018-04-04 07:28] LABS: ANION GAP 7 MEQ/L (8-16); BLOOD UREA NITROGEN 22 MG/DL (7-18); CALCIUM LEVEL 8.5 MG/DL (8.5-10.1); CARBON DIOXIDE LEVEL 24 MEQ/L (21-32); CHLORIDE LEVEL 107 MEQ/L (98-107); CREATININE FOR GFR 1.26 MG/DL (0.70-1.30); GLOMERULAR FILTRATION RATE > 60.0 (>60); GLUCOSE, FASTING 119 MG/DL (70-100); POTASSIUM SERUM 4.7 MEQ/L (3.5-5.1); SODIUM LEVEL 138 MEQ/L (136-145)
[2018-04-04] MEDS: PERCOCET 5MG/325MG TAB PO ×3 (07:47→23:06)
[2018-04-04] MEDS ORDERED: PROHANCE 279.3MG/ML 15ML VIAL (A9576) As Ordered (08:45)
[2018-04-04] MEDS: LEVEMIR (INSULIN DETEMIR) 1 UNITS/0.01ML SC ×2 (09:34→20:54)
[2018-04-04] MEDS: HumaLOG INSULIN (NovoLOG) PER UNIT SC ×4 (09:35→20:54)
[2018-04-04 12:52] LABS: BEDSIDE GLUCOSE 168 MG/DL (70-105)
[2018-04-04 18:10] LABS: BEDSIDE GLUCOSE 121 MG/DL (70-105)
[2018-04-04] MEDS: OMEPRAZOLE 20 MG CAP PO (18:54)
[2018-04-04] MEDS: ACETAMINOPHEN TAB 650MG DOSE (2X325MG) PO (18:55)
[2018-04-04] MEDS: LISINOPRIL 10 MG TAB PO (19:08)
[2018-04-04 19:46] LABS: BEDSIDE GLUCOSE 135 MG/DL (70-105)
[2018-04-04] MEDS: GABAPENTIN 400 MG CAP PO (20:53)
[2018-04-05] MEDS: VANCOMYCIN HCL 1,000 MG, VIAL MATE ADAPTER 1 EACH in D5W 250 ML IV ×2 (02:00→13:51)
[2018-04-05] MEDS: MEROPENEM INJ 500 MG in APPROPRIATE DILUENT 1 EA IV ×2 (04:06→15:30)
[2018-04-05] MEDS: PERCOCET 5MG/325MG TAB PO ×4 (04:06→22:24)
[2018-04-05 07:06] LABS: BASO % 0.6 % (0.0-1.0); EOS # 0.1 10^3/uL (0.0-0.50); EOS % 1.7 % (0.0-3.0); HEMATOCRIT 22.3 % (42.0-52.0); HEMOGLOBIN 7.3 g/dl (13.5-17.5); IMMATURE GRANULOCYTE % 0.3 % (0-3.0); LYMPH # 0.8 10^3/uL (1.5-4.5); LYMPH % 11.6 % (24.0-44.0); MEAN CORPUSCULAR HEMOGLOBIN 27.3 pg (27.0-33.0); MEAN CORPUSCULAR HGB CONC 32.7 g/dl (32.0-36.5); MEAN CORPUSCULAR VOLUME 83.5 fl (80.0-96.0); MONO # 0.8 10^3/uL (0.0-0.8); MONO % 11.9 % (0.0-5.0); NEUTROPHILS # 5.2 10^3/uL (1.8-7.7); NEUTROPHILS % 73.9 % (36.0-66.0); PLATELET COUNT, AUTOMATED 370 10^3/uL (150-450); RED BLOOD COUNT 2.67 10^6/uL (4.30-6.10); RED CELL DISTRIBUTION WIDTH 13.4 % (11.5-14.5)
[2018-04-05] MEDS: ACETAMINOPHEN TAB 650MG DOSE (2X325MG) PO ×2 (07:07→21:51)
[2018-04-05] MEDS: HumaLOG INSULIN (NovoLOG) PER UNIT SC ×4 (07:10→21:00)
[2018-04-05 07:11] LABS: BEDSIDE GLUCOSE 75 MG/DL (70-105)
[2018-04-05 07:18] LABS: ANION GAP 7 MEQ/L (8-16); BLOOD UREA NITROGEN 13 MG/DL (7-18); CALCIUM LEVEL 8.8 MG/DL (8.5-10.1); CARBON DIOXIDE LEVEL 24 MEQ/L (21-32); CHLORIDE LEVEL 109 MEQ/L (98-107); CREATININE FOR GFR 1.06 MG/DL (0.70-1.30); GLOMERULAR FILTRATION RATE > 60.0 (>60); GLUCOSE, FASTING 76 MG/DL (70-100); POTASSIUM SERUM 4.4 MEQ/L (3.5-5.1); SODIUM LEVEL 140 MEQ/L (136-145)
[2018-04-05] MEDS: LEVEMIR (INSULIN DETEMIR) 1 UNITS/0.01ML SC ×2 (07:34→22:21)
[2018-04-05] MEDS: OMEPRAZOLE 20 MG CAP PO (08:14)
[2018-04-05] MEDS: GABAPENTIN 400 MG CAP PO ×3 (08:14→21:51)
[2018-04-05] MEDS: LISINOPRIL 10 MG TAB PO (08:15)
[2018-04-05] MEDS: NS 1,000 ML IV ×3 (10:35→21:50)
[2018-04-05 11:50] LABS: BEDSIDE GLUCOSE 232 MG/DL (70-105)
[2018-04-05] MEDS ORDERED: LIDOCAINE 2% INJ 100 MG/5 ML SDV (FOR ANES.) As Ordered ×2 (14:38→19:54)
[2018-04-05] MEDS ORDERED: ONDANSETRON 4MG/2ML VIAL (J2405) As Ordered ×2 (14:38→19:54)
[2018-04-05] MEDS ORDERED: PROPOFOL 200 MG/20 ML VIAL As Ordered ×2 (14:38→19:54)
[2018-04-05 15:30] LABS: BEDSIDE GLUCOSE 247 MG/DL (70-105)
[2018-04-05 17:15] LABS: BEDSIDE GLUCOSE 233 MG/DL (70-105)
[2018-04-05] MEDS ORDERED: fentaNYL 100 MCG/2 ML INJECTION (J3010) As Ordered (19:54)
[2018-04-05] MEDS ORDERED: MIDAZOLAM INJ 2 MG/2 ML VIAL (J2250) As Ordered (19:54)
[2018-04-05] MEDS: LIDOCAINE 1% SDV INJ 30 ML VIAL As Ordered (20:21)
[2018-04-05] MEDS: BUPIVACAINE HCL 0.5% 30 ML VIAL As Ordered (20:21)
[2018-04-05] MEDS ORDERED: ONDANSETRON 4MG/2ML VIAL (J2405) IV (20:45)
[2018-04-05] MEDS ORDERED: PERCOCET 5MG/325MG TAB PO (20:45)
[2018-04-05 21:24] LABS: BEDSIDE GLUCOSE 210 MG/DL (70-105)
[2018-04-06] MEDS: ACETAMINOPHEN TAB 650MG DOSE (2X325MG) PO ×2 (02:30→06:33)
[2018-04-06] MEDS: VANCOMYCIN HCL 1,000 MG, VIAL MATE ADAPTER 1 EACH in D5W 250 ML IV ×2 (02:30→14:26)
[2018-04-06] MEDS: PERCOCET 5MG/325MG TAB PO ×5 (02:31→20:42)
[2018-04-06] MEDS: MEROPENEM INJ 500 MG in APPROPRIATE DILUENT 1 EA IV ×2 (04:39→15:58)
[2018-04-06] MEDS: HEPARIN SOD (PORCINE) 5000 UNITS/ML VIAL SC ×3 (06:33→20:42)
[2018-04-06 07:28] LABS: BASO % 0.6 % (0.0-1.0); EOS # 0.2 10^3/uL (0.0-0.50); EOS % 2.2 % (0.0-3.0); HEMATOCRIT 22.2 % (42.0-52.0); HEMOGLOBIN 7.1 g/dl (13.5-17.5); IMMATURE GRANULOCYTE % 0.4 % (0-3.0); LYMPH # 1.1 10^3/uL (1.5-4.5); LYMPH % 15.2 % (24.0-44.0); MEAN CORPUSCULAR HEMOGLOBIN 27.3 pg (27.0-33.0); MEAN CORPUSCULAR VOLUME 85.4 fl (80.0-96.0); MONO # 0.7 10^3/uL (0.0-0.8); MONO % 9.6 % (0.0-5.0); NEUTROPHILS # 5.2 10^3/uL (1.8-7.7); PLATELET COUNT, AUTOMATED 378 10^3/uL (150-450); RED CELL DISTRIBUTION WIDTH 13.3 % (11.5-14.5); WHITE BLOOD COUNT 7.2 10^3/uL (4.0-10.0)
[2018-04-06 07:45] LABS: ANION GAP 9 MEQ/L (8-16); BLOOD UREA NITROGEN 13 MG/DL (7-18); CALCIUM LEVEL 8.5 MG/DL (8.5-10.1); CARBON DIOXIDE LEVEL 23 MEQ/L (21-32); CHLORIDE LEVEL 108 MEQ/L (98-107); CREATININE FOR GFR 1.03 MG/DL (0.70-1.30); GLOMERULAR FILTRATION RATE > 60.0 (>60); GLUCOSE, FASTING 141 MG/DL (70-100); POTASSIUM SERUM 4.9 MEQ/L (3.5-5.1); SODIUM LEVEL 140 MEQ/L (136-145)
[2018-04-06] MEDS: NS 1,000 ML IV (08:12)
[2018-04-06] MEDS: LR 1,000 ML IV (08:13)
[2018-04-06] MEDS: GABAPENTIN 400 MG CAP PO ×3 (08:37→20:42)
[2018-04-06] MEDS: LISINOPRIL 10 MG TAB PO (08:37)
[2018-04-06] MEDS: OMEPRAZOLE 20 MG CAP PO (08:37)
[2018-04-06] MEDS: HumaLOG INSULIN (NovoLOG) PER UNIT SC ×4 (09:33→20:43)
[2018-04-06] MEDS: LEVEMIR (INSULIN DETEMIR) 1 UNITS/0.01ML SC ×2 (09:33→20:43)
[2018-04-06] MEDS ORDERED: NS 1,000 ML IV ×2 (09:34→10:19)
[2018-04-06 09:38] LABS: BEDSIDE GLUCOSE 125 MG/DL (70-105)
[2018-04-06] MEDS: oxyCODONE 5MG TAB PO (09:38)
[2018-04-06] MEDS ORDERED: diphenhydrAMINE INJ 50MG/ML VIAL (J1200) IV (09:45)
[2018-04-06] MEDS ORDERED: EPIDURAL/PCA KEYS XX (09:45)
[2018-04-06] MEDS ORDERED: NALBUPHINE HCL 10 MG/ML AMP (J2300) IV (09:45)
[2018-04-06] MEDS ORDERED: MORPHINE 1MG/ML IN 0.9% NACL 100ML IV BAG IV (09:45)
[2018-04-06] MEDS ORDERED: NALOXONE INJ 0.4 MG/1 ML VIAL (J2310) IV (09:45)
[2018-04-06] MEDS ORDERED: ONDANSETRON 4MG/2ML VIAL (J2405) IV (09:45)
[2018-04-06 10:13] LABS: RETIC HEMOGLOBIN EQUIVALENT 26.2 pg (24-36); RETICULOCYTE # 21.5 10^9/L (17-77); RETICULOCYTE % 0.8 % (0.5-1.5)
[2018-04-06 10:17] LABS: REASON FOR REVIEW RBC MORPHOLOGY; SOURCE PERIPHERAL SMEAR
[2018-04-06 10:35] LABS: FERRITIN 232 NG/ML (26-388); IRON (FE) 15 UG/DL (65-175); PERCENT SATURATION 9.7 % (19.7-50.0); TOTAL IRON BINDING CAPACITY 155 UG/DL (250-450)
[2018-04-06 10:50] LABS: SLIDE REVIEW Report
[2018-04-06] MEDS ORDERED: LIDOCAINE 1% MDV 20ML VIAL As Ordered (11:19)
[2018-04-06 11:36] LABS: BEDSIDE GLUCOSE 122 MG/DL (70-105)
[2018-04-06 14:15] LABS: BEDSIDE GLUCOSE 107 MG/DL (70-105)
[2018-04-06] MEDS: MORPHINE 4 MG/ML 1ML VIAL/SYRINGE (J2270) IV ×3 (14:48→23:18)
[2018-04-06] MEDS: SODIUM CHLORIDE 0.9% INJ 10 ML SYR IV ×4 (17:00→23:20)
[2018-04-06 17:04] LABS: BEDSIDE GLUCOSE 97 MG/DL (70-105)
[2018-04-06 17:20] LABS: IMMEDIATE SPIN CROSSMATCH 1 2
[2018-04-06 18:59] LABS: BEDSIDE GLUCOSE 71 MG/DL (70-105)
[2018-04-06 20:10] LABS: HEMATOCRIT 24.5 % (42.0-52.0); HEMOGLOBIN 8.2 g/dl (13.5-17.5)
[2018-04-06 20:36] LABS: BEDSIDE GLUCOSE 151 MG/DL (70-105)
[2018-04-07] MEDS: PERCOCET 5MG/325MG TAB PO ×5 (00:49→20:47)
[2018-04-07] MEDS: VANCOMYCIN HCL 1,000 MG, VIAL MATE ADAPTER 1 EACH in D5W 250 ML IV ×2 (02:22→14:14)
[2018-04-07] MEDS: MORPHINE 4 MG/ML 1ML VIAL/SYRINGE (J2270) IV ×5 (02:28→23:41)
[2018-04-07] MEDS: MEROPENEM INJ 500 MG in APPROPRIATE DILUENT 1 EA IV (04:05)
[2018-04-07] MEDS: SODIUM CHLORIDE 0.9% INJ 10 ML SYR IV ×3 (04:49→17:08)
[2018-04-07] MEDS: HEPARIN SOD (PORCINE) 5000 UNITS/ML VIAL SC ×2 (06:32→14:14)
[2018-04-07] MEDS: HumaLOG INSULIN (NovoLOG) PER UNIT SC ×4 (07:30→21:00)
[2018-04-07 08:04] LABS: BEDSIDE GLUCOSE 65 MG/DL (70-105)
[2018-04-07] MEDS: LEVEMIR (INSULIN DETEMIR) 1 UNITS/0.01ML SC ×2 (08:26→22:43)
[2018-04-07] MEDS: OMEPRAZOLE 20 MG CAP PO (08:32)
[2018-04-07] MEDS: LISINOPRIL 10 MG TAB PO (08:33)
[2018-04-07] MEDS: GABAPENTIN 400 MG CAP PO ×3 (08:33→20:42)
[2018-04-07 12:01] LABS: BEDSIDE GLUCOSE 154 MG/DL (70-105)
[2018-04-07 17:03] LABS: BEDSIDE GLUCOSE 257 MG/DL (70-105)
[2018-04-07 21:34] LABS: BEDSIDE GLUCOSE 145 MG/DL (70-105)
[2018-04-07] MEDS: MEROPENEM INJ 1 GM in APPROPRIATE DILUENT 1 EA IV (23:27)
[2018-04-08] MEDS: PERCOCET 5MG/325MG TAB PO ×4 (01:03→21:39)
[2018-04-08] MEDS: **hydrALAZINE HCL** 25 MG TAB PO (02:03)
[2018-04-08] MEDS: VANCOMYCIN HCL 1,000 MG, VIAL MATE ADAPTER 1 EACH in D5W 250 ML IV ×2 (02:17→13:39)
[2018-04-08 03:14] LABS: BEDSIDE GLUCOSE 233 MG/DL (70-105)
[2018-04-08] MEDS: SODIUM CHLORIDE 0.9% INJ 10 ML SYR IV ×3 (06:00→20:15)
[2018-04-08] MEDS: MEROPENEM INJ 1 GM in APPROPRIATE DILUENT 1 EA IV ×3 (06:48→22:02)
[2018-04-08 07:14] LABS: BEDSIDE GLUCOSE 208 MG/DL (70-105)
[2018-04-08] MEDS: KETOROLAC 30 MG/ML VIAL (J1885) IV (07:23)
[2018-04-08] MEDS: GABAPENTIN 400 MG CAP PO ×3 (08:02→21:38)
[2018-04-08] MEDS: LISINOPRIL 10 MG TAB PO (08:02)
[2018-04-08] MEDS: HumaLOG INSULIN (NovoLOG) PER UNIT SC ×4 (08:02→22:00)
[2018-04-08] MEDS: OMEPRAZOLE 20 MG CAP PO (08:02)
[2018-04-08] MEDS: NS 1,000 ML IV ×2 (08:02→20:15)
[2018-04-08] MEDS: LEVEMIR (INSULIN DETEMIR) 1 UNITS/0.01ML SC ×2 (08:40→22:00)
[2018-04-08 12:08] LABS: BEDSIDE GLUCOSE 203 MG/DL (70-105)
[2018-04-08] MEDS: MORPHINE 4 MG/ML 1ML VIAL/SYRINGE (J2270) IV (12:18)
[2018-04-08 16:22] LABS: BEDSIDE GLUCOSE 99 MG/DL (70-105)
[2018-04-08] MEDS: LIDOCAINE 1% MDV 20ML VIAL As Ordered (17:17)
[2018-04-08] MEDS: BUPIVACAINE HCL 0.5% 10 ML VIAL As Ordered (17:17)
[2018-04-08] MEDS ORDERED: MIDAZOLAM INJ 2 MG/2 ML VIAL (J2250) As Ordered (17:28)
[2018-04-08] MEDS ORDERED: fentaNYL 100 MCG/2 ML INJECTION (J3010) As Ordered (17:28)
[2018-04-08] MEDS ORDERED: PROPOFOL 200 MG/20 ML VIAL As Ordered ×2 (17:28→17:55)
[2018-04-08] MEDS ORDERED: ONDANSETRON 4MG/2ML VIAL (J2405) As Ordered (17:28)
[2018-04-08 19:09] LABS: BEDSIDE GLUCOSE 61 MG/DL (70-105)
[2018-04-08] MEDS ORDERED: fentaNYL 100 MCG/2 ML INJECTION (J3010) IV (19:30)
[2018-04-08] MEDS ORDERED: NS 1,000 ML IV (19:30)
[2018-04-08] MEDS ORDERED: PERCOCET 5MG/325MG TAB PO (19:30)
[2018-04-08 20:26] LABS: BEDSIDE GLUCOSE 114 MG/DL (70-105)
[2018-04-09] MEDS: MORPHINE 4 MG/ML 1ML VIAL/SYRINGE (J2270) IV ×3 (01:08→10:07)
[2018-04-09] MEDS: VANCOMYCIN HCL 1,000 MG, VIAL MATE ADAPTER 1 EACH in D5W 250 ML IV (01:08)
[2018-04-09] MEDS: PERCOCET 5MG/325MG TAB PO ×5 (01:52→21:51)
[2018-04-09 02:01] LABS: BEDSIDE GLUCOSE 144 MG/DL (70-105)
[2018-04-09] MEDS: SODIUM CHLORIDE 0.9% INJ 10 ML SYR IV ×3 (05:04→17:42)
[2018-04-09 05:20] LABS: BASO % 0.3 % (0.0-1.0); EOS # 0.1 10^3/uL (0.0-0.50); EOS % 1.4 % (0.0-3.0); HEMATOCRIT 23.7 % (42.0-52.0); HEMOGLOBIN 7.7 g/dl (13.5-17.5); IMMATURE GRANULOCYTE % 0.3 % (0-3.0); LYMPH # 0.9 10^3/uL (1.5-4.5); LYMPH % 13.4 % (24.0-44.0); MEAN CORPUSCULAR HEMOGLOBIN 27.7 pg (27.0-33.0); MEAN CORPUSCULAR HGB CONC 32.5 g/dl (32.0-36.5); MEAN CORPUSCULAR VOLUME 85.3 fl (80.0-96.0); MONO # 0.5 10^3/uL (0.0-0.8); MONO % 8.2 % (0.0-5.0); NEUTROPHILS # 4.8 10^3/uL (1.8-7.7); NEUTROPHILS % 76.4 % (36.0-66.0); PLATELET COUNT, AUTOMATED 358 10^3/uL (150-450); RED BLOOD COUNT 2.78 10^6/uL (4.30-6.10); RED CELL DISTRIBUTION WIDTH 13.2 % (11.5-14.5); WHITE BLOOD COUNT 6.3 10^3/uL (4.0-10.0)
[2018-04-09 05:42] LABS: ANION GAP 9 MEQ/L (8-16); BLOOD UREA NITROGEN 11 MG/DL (7-18); CALCIUM LEVEL 8.1 MG/DL (8.5-10.1); CARBON DIOXIDE LEVEL 24 MEQ/L (21-32); CHLORIDE LEVEL 109 MEQ/L (98-107); CREATININE FOR GFR 0.86 MG/DL (0.70-1.30); GLOMERULAR FILTRATION RATE > 60.0 (>60); GLUCOSE, FASTING 314 MG/DL (70-100); POTASSIUM SERUM 5.1 MEQ/L (3.5-5.1); SODIUM LEVEL 142 MEQ/L (136-145)
[2018-04-09] MEDS: MEROPENEM INJ 1 GM in APPROPRIATE DILUENT 1 EA IV ×3 (06:06→21:51)
[2018-04-09] MEDS: HEPARIN SOD (PORCINE) 5000 UNITS/ML VIAL SC ×3 (06:06→21:34)
[2018-04-09] MEDS ORDERED: SENOKOT S TAB PO (08:00)
[2018-04-09] MEDS: LEVEMIR (INSULIN DETEMIR) 1 UNITS/0.01ML SC ×2 (08:36→21:33)
[2018-04-09] MEDS: FERROUS SULFATE 325MG TAB PO ×2 (08:37→21:31)
[2018-04-09] MEDS: OMEPRAZOLE 20 MG CAP PO (08:37)
[2018-04-09] MEDS: GABAPENTIN 400 MG CAP PO ×3 (08:37→21:31)
[2018-04-09] MEDS: HumaLOG INSULIN (NovoLOG) PER UNIT SC ×4 (08:37→21:33)
[2018-04-09] MEDS: ASCORBIC ACID 500 MG TAB PO ×2 (08:37→17:41)
[2018-04-09] MEDS: LISINOPRIL 10 MG TAB PO ×2 (08:38→21:32)
[2018-04-09 08:41] LABS: LDH LACTATE DEHYDROGENASE 136 U/L (87-241)
[2018-04-09] MEDS: KETOROLAC 30 MG/ML VIAL (J1885) IV (10:59)
[2018-04-09 11:31] LABS: IMMEDIATE SPIN CROSSMATCH 1 2
[2018-04-09 11:50] LABS: BEDSIDE GLUCOSE 280 MG/DL (70-105)
[2018-04-09] MEDS ORDERED: ONDANSETRON 4MG/2ML VIAL (J2405) IV (14:45)
[2018-04-09] MEDS: METOCLOPRAMIDE INJ 10MG/2ML VIAL (J2765) IV ×2 (15:35→21:33)
[2018-04-09 16:47] LABS: BEDSIDE GLUCOSE 138 MG/DL (70-105)
[2018-04-09 18:02] LABS: HEMATOCRIT 27.5 % (42.0-52.0)
[2018-04-09 19:57] LABS: BEDSIDE GLUCOSE 122 MG/DL (70-105)
[2018-04-10 01:22] LABS: HEMATOCRIT 26.2 % (42.0-52.0); HEMOGLOBIN 8.7 g/dl (13.5-17.5)
[2018-04-10] MEDS: METOCLOPRAMIDE INJ 10MG/2ML VIAL (J2765) IV ×2 (02:50→08:06)
[2018-04-10] MEDS: SODIUM CHLORIDE 0.9% INJ 10 ML SYR IV ×3 (05:00→17:03)
[2018-04-10 05:21] LABS: BASO % 0.6 % (0.0-1.0); EOS # 0.1 10^3/uL (0.0-0.50); EOS % 1.4 % (0.0-3.0); HEMATOCRIT 26.5 % (42.0-52.0); HEMOGLOBIN 8.9 g/dl (13.5-17.5); IMMATURE GRANULOCYTE % 0.1 % (0-3.0); LYMPH # 0.8 10^3/uL (1.5-4.5); MEAN CORPUSCULAR HEMOGLOBIN 27.6 pg (27.0-33.0); MEAN CORPUSCULAR HGB CONC 33.6 g/dl (32.0-36.5); MONO # 0.6 10^3/uL (0.0-0.8); MONO % 8.8 % (0.0-5.0); NEUTROPHILS # 5.4 10^3/uL (1.8-7.7); NEUTROPHILS % 77.1 % (36.0-66.0); PLATELET COUNT, AUTOMATED 361 10^3/uL (150-450); RED BLOOD COUNT 3.23 10^6/uL (4.30-6.10); RED CELL DISTRIBUTION WIDTH 13.3 % (11.5-14.5)
[2018-04-10 05:37] LABS: BLOOD UREA NITROGEN 10 MG/DL (7-18); CREATININE FOR GFR 0.77 MG/DL (0.70-1.30); GLOMERULAR FILTRATION RATE > 60.0 (>60); GLUCOSE, FASTING 142 MG/DL (70-100); SODIUM LEVEL 144 MEQ/L (136-145)
[2018-04-10 05:38] LABS: ANION GAP 10 MEQ/L (8-16); CALCIUM LEVEL 8.6 MG/DL (8.5-10.1); CARBON DIOXIDE LEVEL 25 MEQ/L (21-32); CHLORIDE LEVEL 109 MEQ/L (98-107); POTASSIUM SERUM 4.6 MEQ/L (3.5-5.1)
[2018-04-10] MEDS: HEPARIN SOD (PORCINE) 5000 UNITS/ML VIAL SC ×3 (06:04→21:25)
[2018-04-10] MEDS: MEROPENEM INJ 1 GM in APPROPRIATE DILUENT 1 EA IV ×3 (06:04→22:08)
[2018-04-10] MEDS: HumaLOG INSULIN (NovoLOG) PER UNIT SC ×4 (07:30→21:26)
[2018-04-10] MEDS: FERROUS SULFATE 325MG TAB PO ×2 (08:04→21:25)
[2018-04-10] MEDS: PERCOCET 5MG/325MG TAB PO ×4 (08:04→22:08)
[2018-04-10] MEDS: ASCORBIC ACID 500 MG TAB PO ×2 (08:04→17:02)
[2018-04-10] MEDS: OMEPRAZOLE 20 MG CAP PO (08:04)
[2018-04-10] MEDS: GABAPENTIN 400 MG CAP PO ×3 (08:04→21:25)
[2018-04-10] MEDS: LEVEMIR (INSULIN DETEMIR) 1 UNITS/0.01ML SC ×2 (08:05→21:00)
[2018-04-10] MEDS: LISINOPRIL 10 MG TAB PO ×2 (08:05→21:28)
[2018-04-10 08:20] LABS: HAPTOGLOBIN 322 mg/dL (34-200)
[2018-04-10 11:32] LABS: BEDSIDE GLUCOSE 294 MG/DL (70-105)
[2018-04-10 16:36] LABS: BEDSIDE GLUCOSE 273 MG/DL (70-105)
[2018-04-10 20:31] LABS: BEDSIDE GLUCOSE 118 MG/DL (70-105)
[2018-04-11] MEDS: SODIUM CHLORIDE 0.9% INJ 10 ML SYR IV ×2 (05:03→17:15)
[2018-04-11] MEDS: HEPARIN SOD (PORCINE) 5000 UNITS/ML VIAL SC ×3 (05:04→20:58)
[2018-04-11] MEDS: PERCOCET 5MG/325MG TAB PO ×3 (05:15→20:59)
[2018-04-11 05:25] LABS: BASO % 0.6 % (0.0-1.0); EOS # 0.1 10^3/uL (0.0-0.50); EOS % 1.3 % (0.0-3.0); HEMATOCRIT 29.8 % (42.0-52.0); HEMOGLOBIN 9.8 g/dl (13.5-17.5); IMMATURE GRANULOCYTE % 0.4 % (0-3.0); LYMPH # 1.1 10^3/uL (1.5-4.5); LYMPH % 15.9 % (24.0-44.0); MEAN CORPUSCULAR HEMOGLOBIN 27.6 pg (27.0-33.0); MEAN CORPUSCULAR HGB CONC 32.9 g/dl (32.0-36.5); MEAN CORPUSCULAR VOLUME 83.9 fl (80.0-96.0); MONO # 0.6 10^3/uL (0.0-0.8); MONO % 8.9 % (0.0-5.0); NEUTROPHILS % 72.9 % (36.0-66.0); PLATELET COUNT, AUTOMATED 379 10^3/uL (150-450); RED BLOOD COUNT 3.55 10^6/uL (4.30-6.10); RED CELL DISTRIBUTION WIDTH 13.2 % (11.5-14.5); WHITE BLOOD COUNT 6.8 10^3/uL (4.0-10.0)
[2018-04-11 05:39] LABS: ANION GAP 9 MEQ/L (8-16); BLOOD UREA NITROGEN 11 MG/DL (7-18); CALCIUM LEVEL 8.8 MG/DL (8.5-10.1); CARBON DIOXIDE LEVEL 27 MEQ/L (21-32); CHLORIDE LEVEL 101 MEQ/L (98-107); CREATININE FOR GFR 0.94 MG/DL (0.70-1.30); GLOMERULAR FILTRATION RATE > 60.0 (>60); GLUCOSE, FASTING 294 MG/DL (70-100); POTASSIUM SERUM 4.7 MEQ/L (3.5-5.1); SODIUM LEVEL 137 MEQ/L (136-145)
[2018-04-11] MEDS: MEROPENEM INJ 1 GM in APPROPRIATE DILUENT 1 EA IV (06:17)
[2018-04-11] MEDS: GABAPENTIN 400 MG CAP PO ×3 (09:32→20:57)
[2018-04-11] MEDS: ASCORBIC ACID 500 MG TAB PO ×2 (09:32→17:15)
[2018-04-11] MEDS: FERROUS SULFATE 325MG TAB PO ×2 (09:32→20:57)
[2018-04-11] MEDS: OMEPRAZOLE 20 MG CAP PO (09:32)
[2018-04-11] MEDS: LISINOPRIL 10 MG TAB PO ×2 (09:33→20:58)
[2018-04-11] MEDS: LEVEMIR (INSULIN DETEMIR) 1 UNITS/0.01ML SC ×2 (09:34→21:40)
[2018-04-11] MEDS: HumaLOG INSULIN (NovoLOG) PER UNIT SC ×4 (09:34→21:40)
[2018-04-11 12:06] LABS: BEDSIDE GLUCOSE 293 MG/DL (70-105)
[2018-04-11] MEDS ORDERED: VANCOMYCIN HCL 1,000 MG, VIAL MATE ADAPTER 1 EACH in D5W 250 ML IV (16:00)
[2018-04-11 17:13] LABS: BEDSIDE GLUCOSE 192 MG/DL (70-105)
[2018-04-11] MEDS: VANCOMYCIN HCL 1,000 MG, VIAL MATE ADAPTER 1 EACH in NS 250 ML IV (17:14)
[2018-04-11 20:14] LABS: BEDSIDE GLUCOSE 101 MG/DL (70-105)
[2018-04-11 21:39] LABS: BEDSIDE GLUCOSE 168 MG/DL (70-105)
[2018-04-12] MEDS: VANCOMYCIN HCL 1,000 MG, VIAL MATE ADAPTER 1 EACH in NS 250 ML IV ×3 (00:03→16:09)
[2018-04-12] MEDS: SODIUM CHLORIDE 0.9% INJ 10 ML SYR IV ×3 (01:21→14:17)
[2018-04-12] MEDS: HEPARIN SOD (PORCINE) 5000 UNITS/ML VIAL SC ×3 (05:18→21:19)
[2018-04-12 06:53] LABS: BEDSIDE GLUCOSE 445 MG/DL (70-105)
[2018-04-12] MEDS: PERCOCET 5MG/325MG TAB PO ×4 (06:56→23:42)
[2018-04-12] MEDS: GABAPENTIN 400 MG CAP PO ×3 (07:40→21:18)
[2018-04-12] MEDS: OMEPRAZOLE 20 MG CAP PO (07:40)
[2018-04-12] MEDS: HumaLOG INSULIN (NovoLOG) PER UNIT SC ×4 (07:40→21:20)
[2018-04-12] MEDS: FERROUS SULFATE 325MG TAB PO ×2 (07:40→21:18)
[2018-04-12] MEDS: LISINOPRIL 10 MG TAB PO ×2 (07:41→21:19)
[2018-04-12] MEDS: LEVEMIR (INSULIN DETEMIR) 1 UNITS/0.01ML SC ×2 (07:42→21:20)
[2018-04-12] MEDS: ASCORBIC ACID 500 MG TAB PO ×2 (07:42→17:20)
[2018-04-12 08:04] LABS: BASO % 0.5 % (0.0-1.0); EOS # 0.1 10^3/uL (0.0-0.50); EOS % 1.4 % (0.0-3.0); HEMATOCRIT 29.9 % (42.0-52.0); HEMOGLOBIN 9.8 g/dl (13.5-17.5); IMMATURE GRANULOCYTE % 0.5 % (0-3.0); LYMPH # 0.9 10^3/uL (1.5-4.5); LYMPH % 14.6 % (24.0-44.0); MEAN CORPUSCULAR HEMOGLOBIN 27.8 pg (27.0-33.0); MEAN CORPUSCULAR HGB CONC 32.8 g/dl (32.0-36.5); MEAN CORPUSCULAR VOLUME 84.7 fl (80.0-96.0); MONO # 0.5 10^3/uL (0.0-0.8); MONO % 7.7 % (0.0-5.0); NEUTROPHILS # 4.8 10^3/uL (1.8-7.7); NEUTROPHILS % 75.3 % (36.0-66.0); PLATELET COUNT, AUTOMATED 357 10^3/uL (150-450); RED BLOOD COUNT 3.53 10^6/uL (4.30-6.10); RED CELL DISTRIBUTION WIDTH 13.3 % (11.5-14.5); WHITE BLOOD COUNT 6.4 10^3/uL (4.0-10.0)
[2018-04-12 08:25] LABS: ALBUMIN 2.4 GM/DL (3.2-5.2); ALBUMIN/GLOBULIN RATIO 0.53 (1.00-1.93); ALKALINE PHOSPHATASE 75 U/L (45-117); ALT/SGPT 11 U/L (12-78); ANION GAP 12 MEQ/L (8-16); AST/SGOT 7 U/L (7-37); BILIRUBIN,TOTAL 0.4 MG/DL (0.2-1.0); BLOOD UREA NITROGEN 16 MG/DL (7-18); CALCIUM LEVEL 8.9 MG/DL (8.5-10.1); CARBON DIOXIDE LEVEL 24 MEQ/L (21-32); CHLORIDE LEVEL 102 MEQ/L (98-107); CREATININE FOR GFR 0.99 MG/DL (0.70-1.30); GLOMERULAR FILTRATION RATE > 60.0 (>60); MAGNESIUM LEVEL 1.8 MG/DL (1.8-2.4); POTASSIUM SERUM 4.8 MEQ/L (3.5-5.1); SODIUM LEVEL 138 MEQ/L (136-145); TOTAL PROTEIN 6.9 GM/DL (6.4-8.2)
[2018-04-12 08:30] LABS: GLUCOSE, FASTING 459 MG/DL (70-100)
[2018-04-12 12:15] LABS: BEDSIDE GLUCOSE 269 MG/DL (70-105)
[2018-04-12 15:55] LABS: C REACTIVE PROTEIN QUANTITATIV 7.18 MG/DL (0.00-0.30)
[2018-04-12 15:55] LABS: VANCOMYCIN LEVEL TROUGH 18.4 UG/ML (10.0-20.0)
[2018-04-12 17:04] LABS: BEDSIDE GLUCOSE 148 MG/DL (70-105)
[2018-04-13] MEDS: VANCOMYCIN HCL 1,000 MG, VIAL MATE ADAPTER 1 EACH in NS 250 ML IV ×2 (00:43→09:47)
[2018-04-13] MEDS: SODIUM CHLORIDE 0.9% INJ 10 ML SYR IV ×4 (00:44→09:49)
[2018-04-13] MEDS: HEPARIN SOD (PORCINE) 5000 UNITS/ML VIAL SC (05:25)
[2018-04-13 05:53] LABS: BASO % 0.6 % (0.0-1.0); EOS # 0.1 10^3/uL (0.0-0.50); EOS % 1.5 % (0.0-3.0); HEMATOCRIT 26.8 % (42.0-52.0); HEMOGLOBIN 8.9 g/dl (13.5-17.5); IMMATURE GRANULOCYTE % 0.2 % (0-3.0); LYMPH # 0.9 10^3/uL (1.5-4.5); LYMPH % 17.5 % (24.0-44.0); MEAN CORPUSCULAR HEMOGLOBIN 27.5 pg (27.0-33.0); MEAN CORPUSCULAR HGB CONC 33.2 g/dl (32.0-36.5); MEAN CORPUSCULAR VOLUME 82.7 fl (80.0-96.0); MONO # 0.4 10^3/uL (0.0-0.8); MONO % 7.3 % (0.0-5.0); NEUTROPHILS # 3.8 10^3/uL (1.8-7.7); NEUTROPHILS % 72.9 % (36.0-66.0); PLATELET COUNT, AUTOMATED 360 10^3/uL (150-450); RED BLOOD COUNT 3.24 10^6/uL (4.30-6.10); RED CELL DISTRIBUTION WIDTH 13.2 % (11.5-14.5); WHITE BLOOD COUNT 5.2 10^3/uL (4.0-10.0)
[2018-04-13 06:10] LABS: ALBUMIN 2.3 GM/DL (3.2-5.2); ALBUMIN/GLOBULIN RATIO 0.53 (1.00-1.93); ALKALINE PHOSPHATASE 62 U/L (45-117); ALT/SGPT 11 U/L (12-78); ANION GAP 10 MEQ/L (8-16); AST/SGOT 6 U/L (7-37); BILIRUBIN,TOTAL 0.4 MG/DL (0.2-1.0); BLOOD UREA NITROGEN 14 MG/DL (7-18); CALCIUM LEVEL 8.8 MG/DL (8.5-10.1); CARBON DIOXIDE LEVEL 27 MEQ/L (21-32); CHLORIDE LEVEL 103 MEQ/L (98-107); CREATININE FOR GFR 0.91 MG/DL (0.70-1.30); GLOMERULAR FILTRATION RATE > 60.0 (>60); GLUCOSE, FASTING 342 MG/DL (70-100); MAGNESIUM LEVEL 1.8 MG/DL (1.8-2.4); POTASSIUM SERUM 4.5 MEQ/L (3.5-5.1); SODIUM LEVEL 140 MEQ/L (136-145); TOTAL PROTEIN 6.6 GM/DL (6.4-8.2)
[2018-04-13] MEDS: ASCORBIC ACID 500 MG TAB PO (09:47)
[2018-04-13] MEDS: LISINOPRIL 10 MG TAB PO (09:47)
[2018-04-13] MEDS: GABAPENTIN 400 MG CAP PO (09:47)
[2018-04-13] MEDS: OMEPRAZOLE 20 MG CAP PO (09:47)
[2018-04-13] MEDS: FERROUS SULFATE 325MG TAB PO (09:47)
[2018-04-13] MEDS: LEVEMIR (INSULIN DETEMIR) 1 UNITS/0.01ML SC (09:48)
[2018-04-13] MEDS: HumaLOG INSULIN (NovoLOG) PER UNIT SC ×2 (09:48→12:39)
[2018-04-13] MEDS: PERCOCET 5MG/325MG TAB PO (09:54)
[2018-04-13 12:19] LABS: BEDSIDE GLUCOSE 323 MG/DL (70-105)
[2018-04-13 16:32] LABS: BEDSIDE GLUCOSE 107 MG/DL (70-105)
== END 2018-04-13 13:48 | disposition home or self-care (01) | DRG 710 ==
LOC: M MSPAV 04-08 20:09 → M ED 22:10 → M ED INP 04-04 02:42 → M PED 04-04 04:00
PROC: 0LBW0ZZ Excision of Left Foot Tendon, Open Approach (ICD-10-PCS; principal; 2018-04-05 19:40)
PROC: 30233N1 Transfusion of Nonautologous Red Blood Cells into Peripheral Vein, Percutaneous Approach (ICD-10-PCS; 2018-04-05 19:40)
PROC: 02HV33Z Insertion of Infusion Device into Superior Vena Cava, Percutaneous Approach (ICD-10-PCS; 2018-04-05 19:40)
PROC: 0Y6N0Z0 Detachment at Left Foot, Complete, Open Approach (ICD-10-PCS; 2018-04-05 19:40)
DX: A41.9 Sepsis, unspecified organism (principal); N17.9 Acute kidney failure, unspecified; E87.2 Acidosis; E10.40 Type 1 diabetes mellitus with diabetic neuropathy, unspecified; D62 Acute posthemorrhagic anemia; M86.172 Other acute osteomyelitis, left ankle and foot; E10.621 Type 1 diabetes mellitus with foot ulcer; E10.319 Type 1 diabetes mellitus with unspecified diabetic retinopathy without macular edema; I82.613 Acute embolism and thrombosis of superficial veins of upper extremity, bilateral; I10 Essential (primary) hypertension; Z79.4 Long term (current) use of insulin; Z79.899 Other long term (current) drug therapy; Z88.0 Allergy status to penicillin; Z88.8 Allergy status to other drugs, medicaments and biological substances; E86.0 Dehydration; K21.9 Gastro-esophageal reflux disease without esophagitis

== ENCOUNTER → 2018-04-27 | Outpatient (REF) | payer OTHER ==
[2018-04-27 11:43] LABS: BASO # 0.1 10^3/uL (0.0-0.2); BASO % 0.8 % (0.0-1.0); EOS # 0.1 10^3/uL (0.0-0.50); HEMATOCRIT 27.2 % (42.0-52.0); HEMOGLOBIN 8.7 g/dl (13.5-17.5); IMMATURE GRANULOCYTE % 0.2 % (0-3.0); LYMPH % 16.8 % (24.0-44.0); MEAN CORPUSCULAR VOLUME 84.5 fl (80.0-96.0); MONO # 0.6 10^3/uL (0.0-0.8); MONO % 10.1 % (0.0-5.0); NEUTROPHILS # 4.2 10^3/uL (1.8-7.7); NEUTROPHILS % 70.1 % (36.0-66.0); PLATELET COUNT, AUTOMATED 292 10^3/uL (150-450); RED BLOOD COUNT 3.22 10^6/uL (4.30-6.10); RED CELL DISTRIBUTION WIDTH 13.6 % (11.5-14.5); WHITE BLOOD COUNT 5.9 10^3/uL (4.0-10.0)
[2018-04-27 12:24] LABS: ALBUMIN/GLOBULIN RATIO 0.65 (1.00-1.93); ALKALINE PHOSPHATASE 99 U/L (45-117); ALT/SGPT 18 U/L (12-78); ANION GAP 5 MEQ/L (8-16); AST/SGOT 12 U/L (7-37); BILIRUBIN,TOTAL 0.6 MG/DL (0.2-1.0); BLOOD UREA NITROGEN 21 MG/DL (7-18); C REACTIVE PROTEIN QUANTITATIV 2.43 MG/DL (0.00-0.30); CALCIUM LEVEL 8.9 MG/DL (8.5-10.1); CARBON DIOXIDE LEVEL 30 MEQ/L (21-32); CHLORIDE LEVEL 104 MEQ/L (98-107); GLOMERULAR FILTRATION RATE > 60.0 (>60); GLUCOSE, FASTING 107 MG/DL (70-100); POTASSIUM SERUM 4.8 MEQ/L (3.5-5.1); SODIUM LEVEL 139 MEQ/L (136-145); TOTAL PROTEIN 7.6 GM/DL (6.4-8.2)
[2018-04-27 12:27] LABS: ERYTHROCYTE SEDIMENTATION RATE 97 mm/hr (0-15)
[2018-04-27 22:46] LABS: VANCOMYCIN LEVEL TROUGH 14.6 UG/ML (10.0-20.0)
== END ==
LOC: M LAB REF 11:01
DX: T81.4XXA Infection following a procedure, initial encounter (principal); Y82.8 Other medical devices associated with adverse incidents

== ENCOUNTER → 2018-04-29 | Outpatient (REF) | payer OTHER ==
[2018-04-29 16:22] LABS: TESTOSTERONE 207 NG/DL (241-827)
== END ==
LOC: M LAB REF 13:17
DX: N52.01 Erectile dysfunction due to arterial insufficiency (principal)

== ENCOUNTER → 2018-05-04 | Outpatient (REF) | payer OTHER ==
[2018-05-04 10:50] LABS: BASO # 0.1 10^3/uL (0.0-0.2); BASO % 1.1 % (0.0-1.0); EOS # 0.1 10^3/uL (0.0-0.50); EOS % 1.7 % (0.0-3.0); HEMOGLOBIN 8.7 g/dl (13.5-17.5); IMMATURE GRANULOCYTE % 0.2 % (0-3.0); LYMPH % 18.4 % (24.0-44.0); MEAN CORPUSCULAR HEMOGLOBIN 27.2 pg (27.0-33.0); MEAN CORPUSCULAR HGB CONC 32.2 g/dl (32.0-36.5); MEAN CORPUSCULAR VOLUME 84.4 fl (80.0-96.0); MONO # 0.5 10^3/uL (0.0-0.8); MONO % 9.5 % (0.0-5.0); NEUTROPHILS # 3.7 10^3/uL (1.8-7.7); NEUTROPHILS % 69.1 % (36.0-66.0); PLATELET COUNT, AUTOMATED 282 10^3/uL (150-450); RED CELL DISTRIBUTION WIDTH 13.6 % (11.5-14.5); WHITE BLOOD COUNT 5.4 10^3/uL (4.0-10.0)
[2018-05-04 11:08] LABS: ALBUMIN 3.1 GM/DL (3.2-5.2); ALBUMIN/GLOBULIN RATIO 0.76 (1.00-1.93); ALKALINE PHOSPHATASE 99 U/L (45-117); ALT/SGPT 18 U/L (12-78); ANION GAP 8 MEQ/L (8-16); AST/SGOT 12 U/L (7-37); BILIRUBIN,TOTAL 0.4 MG/DL (0.2-1.0); BLOOD UREA NITROGEN 24 MG/DL (7-18); C REACTIVE PROTEIN QUANTITATIV 2.21 MG/DL (0.00-0.30); CALCIUM LEVEL 8.9 MG/DL (8.5-10.1); CARBON DIOXIDE LEVEL 26 MEQ/L (21-32); CHLORIDE LEVEL 106 MEQ/L (98-107); GLOMERULAR FILTRATION RATE 56.1 (>60); GLUCOSE, FASTING 300 MG/DL (70-100); POTASSIUM SERUM 5.2 MEQ/L (3.5-5.1); SODIUM LEVEL 140 MEQ/L (136-145); TOTAL PROTEIN 7.2 GM/DL (6.4-8.2); VANCOMYCIN LEVEL TROUGH 19.2 UG/ML (10.0-20.0)
[2018-05-04 11:26] LABS: ERYTHROCYTE SEDIMENTATION RATE 89 mm/hr (0-15)
== END ==
LOC: M LAB REF 10:39
DX: M86.172 Other acute osteomyelitis, left ankle and foot (principal)

== ENCOUNTER → 2018-05-06 | Outpatient (REF) | payer OTHER ==
[2018-05-06 19:44] LABS: BASO % 0.7 % (0.0-1.0); EOS # 0.1 10^3/uL (0.0-0.50); EOS % 1.9 % (0.0-3.0); HEMATOCRIT 28.2 % (42.0-52.0); HEMOGLOBIN 8.9 g/dl (13.5-17.5); IMMATURE GRANULOCYTE % 0.4 % (0-3.0); LYMPH # 0.9 10^3/uL (1.5-4.5); LYMPH % 15.6 % (24.0-44.0); MEAN CORPUSCULAR HEMOGLOBIN 26.9 pg (27.0-33.0); MEAN CORPUSCULAR HGB CONC 31.6 g/dl (32.0-36.5); MEAN CORPUSCULAR VOLUME 85.2 fl (80.0-96.0); MONO # 0.5 10^3/uL (0.0-0.8); MONO % 8.4 % (0.0-5.0); NEUTROPHILS # 4.2 10^3/uL (1.8-7.7); PLATELET COUNT, AUTOMATED 304 10^3/uL (150-450); RED BLOOD COUNT 3.31 10^6/uL (4.30-6.10); RED CELL DISTRIBUTION WIDTH 13.6 % (11.5-14.5); RETIC HEMOGLOBIN EQUIVALENT 30.4 pg (24-36); RETICULOCYTE # 34.1 10^9/L (17-77); WHITE BLOOD COUNT 5.7 10^3/uL (4.0-10.0)
[2018-05-06 19:57] LABS: IRON (FE) 51 UG/DL (65-175)
== END ==
LOC: M LAB REF 19:22
DX: D64.89 Other specified anemias (principal)

== ENCOUNTER → 2018-05-11 | Outpatient (REF) | payer OTHER ==
[2018-05-11 12:15] LABS: BASO % 0.8 % (0.0-1.0); EOS # 0.1 10^3/uL (0.0-0.50); EOS % 2.9 % (0.0-3.0); HEMATOCRIT 27.1 % (42.0-52.0); HEMOGLOBIN 8.7 g/dl (13.5-17.5); IMMATURE GRANULOCYTE % 0.2 % (0-3.0); LYMPH # 0.9 10^3/uL (1.5-4.5); LYMPH % 17.5 % (24.0-44.0); MEAN CORPUSCULAR HEMOGLOBIN 26.9 pg (27.0-33.0); MEAN CORPUSCULAR HGB CONC 32.1 g/dl (32.0-36.5); MEAN CORPUSCULAR VOLUME 83.6 fl (80.0-96.0); MONO # 0.4 10^3/uL (0.0-0.8); NEUTROPHILS # 3.4 10^3/uL (1.8-7.7); NEUTROPHILS % 69.6 % (36.0-66.0); PLATELET COUNT, AUTOMATED 286 10^3/uL (150-450); RED BLOOD COUNT 3.24 10^6/uL (4.30-6.10); RED CELL DISTRIBUTION WIDTH 13.5 % (11.5-14.5); WHITE BLOOD COUNT 4.9 10^3/uL (4.0-10.0)
[2018-05-11 12:53] LABS: ALBUMIN 3.2 GM/DL (3.2-5.2); ALBUMIN/GLOBULIN RATIO 0.73 (1.00-1.93); ALKALINE PHOSPHATASE 108 U/L (45-117); ALT/SGPT 22 U/L (12-78); ANION GAP 9 MEQ/L (8-16); AST/SGOT 9 U/L (7-37); BILIRUBIN,TOTAL 0.7 MG/DL (0.2-1.0); BLOOD UREA NITROGEN 25 MG/DL (7-18); C REACTIVE PROTEIN QUANTITATIV 1.86 MG/DL (0.00-0.30); CALCIUM LEVEL 9.3 MG/DL (8.5-10.1); CARBON DIOXIDE LEVEL 27 MEQ/L (21-32); CHLORIDE LEVEL 107 MEQ/L (98-107); CREATININE FOR GFR 1.57 MG/DL (0.70-1.30); ERYTHROCYTE SEDIMENTATION RATE 106 mm/hr (0-15); GLOMERULAR FILTRATION RATE 53.2 (>60); GLUCOSE, FASTING 116 MG/DL (70-100); POTASSIUM SERUM 4.9 MEQ/L (3.5-5.1); SODIUM LEVEL 143 MEQ/L (136-145); TOTAL PROTEIN 7.6 GM/DL (6.4-8.2); VANCOMYCIN LEVEL TROUGH 21.5 UG/ML (10.0-20.0)
== END ==
LOC: M LAB REF 11:47
DX: M86.172 Other acute osteomyelitis, left ankle and foot (principal)

== ENCOUNTER → 2018-05-18 | Outpatient (REF) | payer OTHER ==
[2018-05-18 13:33] LABS: BASO % 0.6 % (0.0-1.0); EOS # 0.1 10^3/uL (0.0-0.50); EOS % 2.4 % (0.0-3.0); HEMATOCRIT 26.6 % (42.0-52.0); HEMOGLOBIN 8.4 g/dl (13.5-17.5); IMMATURE GRANULOCYTE % 0.2 % (0-3.0); LYMPH % 19.8 % (24.0-44.0); MEAN CORPUSCULAR HEMOGLOBIN 27.2 pg (27.0-33.0); MEAN CORPUSCULAR HGB CONC 31.6 g/dl (32.0-36.5); MEAN CORPUSCULAR VOLUME 86.1 fl (80.0-96.0); MONO # 0.6 10^3/uL (0.0-0.8); MONO % 11.3 % (0.0-5.0); NEUTROPHILS # 3.3 10^3/uL (1.8-7.7); NEUTROPHILS % 65.7 % (36.0-66.0); PLATELET COUNT, AUTOMATED 240 10^3/uL (150-450); RED BLOOD COUNT 3.09 10^6/uL (4.30-6.10); RED CELL DISTRIBUTION WIDTH 13.4 % (11.5-14.5)
[2018-05-18 13:55] LABS: ERYTHROCYTE SEDIMENTATION RATE 74 mm/hr (0-15)
[2018-05-18 14:13] LABS: ALBUMIN 3.3 GM/DL (3.2-5.2); ALKALINE PHOSPHATASE 93 U/L (45-117); ALT/SGPT 16 U/L (12-78); ANION GAP 6 MEQ/L (8-16); AST/SGOT 7 U/L (7-37); BILIRUBIN,TOTAL 0.5 MG/DL (0.2-1.0); BLOOD UREA NITROGEN 23 MG/DL (7-18); C REACTIVE PROTEIN QUANTITATIV 1.31 MG/DL (0.00-0.30); CALCIUM LEVEL 8.8 MG/DL (8.5-10.1); CARBON DIOXIDE LEVEL 29 MEQ/L (21-32); CHLORIDE LEVEL 105 MEQ/L (98-107); CREATININE FOR GFR 1.61 MG/DL (0.70-1.30); GLOMERULAR FILTRATION RATE 51.7 (>60); GLUCOSE, FASTING 197 MG/DL (70-100); POTASSIUM SERUM 4.6 MEQ/L (3.5-5.1); SODIUM LEVEL 140 MEQ/L (136-145); TOTAL PROTEIN 7.4 GM/DL (6.4-8.2); VANCOMYCIN LEVEL TROUGH 13.4 UG/ML (10.0-20.0)
== END ==
LOC: M SHH 12:15
DX: M86.172 Other acute osteomyelitis, left ankle and foot (principal)

== ENCOUNTER → 2018-05-20 | Outpatient (CLI) | payer OTHER | LOC: M RAD 06:14 | DX: R59.0 Localized enlarged lymph nodes (principal) | CPT/HCPCS: 76857 ==

== ENCOUNTER → 2018-05-20 | Outpatient (CLI) | payer OTHER | LOC: M RAD 06:09 | DX: G44.52 New daily persistent headache (NDPH) (principal); R11.2 Nausea with vomiting, unspecified | CPT/HCPCS: 76705 ==

== ENCOUNTER → 2018-06-01 | Outpatient (REF) | payer OTHER ==
[2018-06-01 13:00] LABS: BASO % 0.8 % (0.0-1.0); EOS # 0.1 10^3/uL (0.0-0.50); HEMATOCRIT 24.5 % (42.0-52.0); HEMOGLOBIN 7.8 g/dl (13.5-17.5); IMMATURE GRANULOCYTE % 0.3 % (0-3.0); MEAN CORPUSCULAR HEMOGLOBIN 27.4 pg (27.0-33.0); MEAN CORPUSCULAR HGB CONC 31.8 g/dl (32.0-36.5); MONO # 0.4 10^3/uL (0.0-0.8); MONO % 8.8 % (0.0-5.0); NEUTROPHILS # 2.5 10^3/uL (1.8-7.7); NEUTROPHILS % 64.1 % (36.0-66.0); PLATELET COUNT, AUTOMATED 293 10^3/uL (150-450); RED BLOOD COUNT 2.85 10^6/uL (4.30-6.10); RED CELL DISTRIBUTION WIDTH 13.2 % (11.5-14.5)
[2018-06-01 13:25] LABS: ANION GAP 7 MEQ/L (8-16); BLOOD UREA NITROGEN 27 MG/DL (7-18); C REACTIVE PROTEIN QUANTITATIV 2.84 MG/DL (0.00-0.30); CALCIUM LEVEL 9.2 MG/DL (8.5-10.1); CARBON DIOXIDE LEVEL 29 MEQ/L (21-32); CHLORIDE LEVEL 104 MEQ/L (98-107); CREATININE FOR GFR 1.56 MG/DL (0.70-1.30); GLOMERULAR FILTRATION RATE 53.6 (>60); GLUCOSE, FASTING 169 MG/DL (70-100); POTASSIUM SERUM 4.7 MEQ/L (3.5-5.1); SODIUM LEVEL 140 MEQ/L (136-145)
[2018-06-01 13:52] LABS: ERYTHROCYTE SEDIMENTATION RATE 126 mm/hr (0-15)
== END ==
LOC: M SHH 12:23
DX: M86.172 Other acute osteomyelitis, left ankle and foot (principal); E10.621 Type 1 diabetes mellitus with foot ulcer
CPT/HCPCS: 80048

== ENCOUNTER 2018-06-03 12:21 | Observation (INO) | payer OTHER ==
[2018-06-03 13:41] LABS: BASO % 0.7 % (0.0-1.0); EOS # 0.1 10^3/uL (0.0-0.50); EOS % 1.5 % (0.0-3.0); HEMATOCRIT 25.7 % (42.0-52.0); HEMOGLOBIN 8.3 g/dl (13.5-17.5); IMMATURE GRANULOCYTE % 0.2 % (0-3.0); LYMPH # 0.8 10^3/uL (1.5-4.5); LYMPH % 12.6 % (24.0-44.0); MEAN CORPUSCULAR HGB CONC 32.3 g/dl (32.0-36.5); MEAN CORPUSCULAR VOLUME 83.7 fl (80.0-96.0); MONO # 0.4 10^3/uL (0.0-0.8); MONO % 6.9 % (0.0-5.0); NEUTROPHILS # 4.8 10^3/uL (1.8-7.7); NEUTROPHILS % 78.1 % (36.0-66.0); PLATELET COUNT, AUTOMATED 305 10^3/uL (150-450); RED BLOOD COUNT 3.07 10^6/uL (4.30-6.10); RED CELL DISTRIBUTION WIDTH 13.1 % (11.5-14.5); RETIC HEMOGLOBIN EQUIVALENT 30.2 pg (24-36); RETICULOCYTE # 26.7 10^9/L (17-77); RETICULOCYTE % 0.9 % (0.5-1.5); WHITE BLOOD COUNT 6.1 10^3/uL (4.0-10.0)
[2018-06-03 14:07] LABS: C REACTIVE PROTEIN QUANTITATIV 2.09 MG/DL (0.00-0.30)
[2018-06-03 14:10] LABS: ALBUMIN 3.3 GM/DL (3.2-5.2); ALBUMIN/GLOBULIN RATIO 0.69 (1.00-1.93); ALKALINE PHOSPHATASE 95 U/L (45-117); ALT/SGPT 19 U/L (12-78); ANION GAP 5 MEQ/L (8-16); AST/SGOT 12 U/L (7-37); BILIRUBIN,DIRECT 0.2 MG/DL (0.0-0.2); BILIRUBIN,TOTAL 0.7 MG/DL (0.2-1.0); BLOOD UREA NITROGEN 24 MG/DL (7-18); CALCIUM LEVEL 9.2 MG/DL (8.5-10.1); CARBON DIOXIDE LEVEL 28 MEQ/L (21-32); CHLORIDE LEVEL 103 MEQ/L (98-107); CREATININE FOR GFR 1.58 MG/DL (0.70-1.30); FREE T4 1.15 NG/DL (0.76-1.46); GLOMERULAR FILTRATION RATE 52.8 (>60); GLUCOSE, FASTING 272 MG/DL (70-100); MAGNESIUM LEVEL 1.9 MG/DL (1.8-2.4); POTASSIUM SERUM 4.8 MEQ/L (3.5-5.1); SODIUM LEVEL 136 MEQ/L (136-145); THYROID STIMULATING HORMONE 0.149 uIU/ML (0.358-3.740); TOTAL PROTEIN 8.1 GM/DL (6.4-8.2)
[2018-06-03 14:12] LABS: INR 1.14; PROTHROMBIN TIME 14.8 SECONDS (12.1-14.4)
[2018-06-03 14:13] LABS: PARTIAL THROMBOPLASTIN TIME 34.7 SECONDS (25.4-37.6)
[2018-06-03 14:33] LABS: FERRITIN 254 NG/ML (26-388); IRON (FE) 38 UG/DL (65-175); PERCENT SATURATION 20.7 % (19.7-50.0); TOTAL IRON BINDING CAPACITY 184 UG/DL (250-450)
[2018-06-03 14:34] LABS: LACTIC ACID SEPSIS PROTOCOL 0.7 MMOL/L (0.4-2.0)
[2018-06-03 14:36] LABS: ERYTHROCYTE SEDIMENTATION RATE 106 mm/hr (0-15)
[2018-06-03 14:40] LABS: FOLATE 14.5 NG/ML (>5.4)
[2018-06-03 15:03] LABS: IMMEDIATE SPIN CROSSMATCH 1 1
[2018-06-03] MEDS ORDERED: BISACODYL 5 MG TAB PO (15:45)
[2018-06-03] MEDS ORDERED: ONDANSETRON 4MG/2ML VIAL (J2405) IV (15:45)
[2018-06-03] MEDS ORDERED: GLUCOSE 4 GM CHEW TABLET PO (16:00)
[2018-06-03] MEDS ORDERED: GLUCAGON FOR INJ 1 MG VIAL (J1610) SC (16:00)
[2018-06-03] MEDS ORDERED: DEXTROSE 50% 50 ML SYRINGE IV (16:00)
[2018-06-03] MEDS ORDERED: NORCO, ANEXSIA 5/325MG TABLET (HYDROcodone/ACETAMINOPHEN) PO (16:00)
[2018-06-03] MEDS ORDERED: NICOTINE POLACRILEX 2 MG GUM PO (16:00)
[2018-06-03 17:07] LABS: HEMATOCRIT 26.7 % (42.0-52.0); HEMOGLOBIN 8.6 g/dl (13.5-17.5)
[2018-06-03] MEDS: HumaLOG INSULIN (NovoLOG) PER UNIT SC ×2 (17:30→22:50)
[2018-06-03 17:39] LABS: BEDSIDE GLUCOSE 200 MG/DL (70-105)
[2018-06-03] MEDS: GABAPENTIN 300 MG CAP PO ×2 (17:55→22:49)
[2018-06-03] MEDS: HEPARIN SOD (PORCINE) 5000 UNITS/ML VIAL SC (18:21)
[2018-06-03 21:06] LABS: BEDSIDE GLUCOSE 257 MG/DL (70-105)
[2018-06-03] MEDS: CARVedilol 12.5 MG TAB PO (22:49)
[2018-06-03] MEDS: LEVEMIR (INSULIN DETEMIR) 1 UNITS/0.01ML SC (22:50)
[2018-06-03] MEDS: ACETAMINOPHEN TAB 650MG DOSE (2X325MG) PO (22:51)
[2018-06-04] MEDS: HEPARIN SOD (PORCINE) 5000 UNITS/ML VIAL SC ×2 (02:47→11:00)
[2018-06-04 07:10] LABS: HEMATOCRIT 27.3 % (42.0-52.0); HEMOGLOBIN 8.9 g/dl (13.5-17.5); MEAN CORPUSCULAR HEMOGLOBIN 26.9 pg (27.0-33.0); MEAN CORPUSCULAR HGB CONC 32.6 g/dl (32.0-36.5); MEAN CORPUSCULAR VOLUME 82.5 fl (80.0-96.0); PLATELET COUNT, AUTOMATED 299 10^3/uL (150-450); RED BLOOD COUNT 3.31 10^6/uL (4.30-6.10); RED CELL DISTRIBUTION WIDTH 13.2 % (11.5-14.5)
[2018-06-04 07:37] LABS: ANION GAP 6 MEQ/L (8-16); BLOOD UREA NITROGEN 22 MG/DL (7-18); C REACTIVE PROTEIN QUANTITATIV 1.99 MG/DL (0.00-0.30); CARBON DIOXIDE LEVEL 27 MEQ/L (21-32); CHLORIDE LEVEL 107 MEQ/L (98-107); FERRITIN 246 NG/ML (26-388); GLOMERULAR FILTRATION RATE > 60.0 (>60); GLUCOSE, FASTING 259 MG/DL (70-100); IRON (FE) 34 UG/DL (65-175); POTASSIUM SERUM 4.4 MEQ/L (3.5-5.1); SODIUM LEVEL 140 MEQ/L (136-145); TOTAL IRON BINDING CAPACITY 162 UG/DL (250-450)
[2018-06-04 07:43] LABS: ERYTHROCYTE SEDIMENTATION RATE 74 mm/hr (0-15)
[2018-06-04 07:48] LABS: REASON FOR REVIEW RBC MORPHOLOGY; SLIDE REVIEW Report; SOURCE PERIPHERAL SMEAR
[2018-06-04 07:52] LABS: RETIC HEMOGLOBIN EQUIVALENT 31.2 pg (24-36); RETICULOCYTE # 26.7 10^9/L (17-77); RETICULOCYTE % 0.8 % (0.5-1.5)
[2018-06-04 09:23] LABS: IMMEDIATE SPIN CROSSMATCH 1 1
[2018-06-04] MEDS: HumaLOG INSULIN (NovoLOG) PER UNIT SC ×2 (09:43→12:42)
[2018-06-04] MEDS: LEVEMIR (INSULIN DETEMIR) 1 UNITS/0.01ML SC (09:44)
[2018-06-04] MEDS: PANTOPRAZOLE 40MG TAB (PROTONIX) PO (09:44)
[2018-06-04] MEDS: GABAPENTIN 300 MG CAP PO (09:44)
[2018-06-04] MEDS: CARVedilol 12.5 MG TAB PO (09:44)
[2018-06-04] MEDS: LISINOPRIL 20 MG TAB PO (09:45)
[2018-06-05] MEDS ORDERED: FERROUS SULFATE 325MG TAB PO (09:00)
[2018-06-05] MEDS ORDERED: ASCORBIC ACID 500 MG TAB PO (09:00)
[2018-06-05 17:40] LABS: BEDSIDE GLUCOSE 364 MG/DL (70-105)
== END 2018-06-04 14:00 | disposition home or self-care (01) ==
LOC: M ED 12:21 → M ED INP 15:43 → M MS5PR 17:14
DX: N18.3 Chronic kidney disease, stage 3 (moderate) (principal); D63.1 Anemia in chronic kidney disease; E10.21 Type 1 diabetes mellitus with diabetic nephropathy; K21.9 Gastro-esophageal reflux disease without esophagitis; I12.9 Hypertensive chronic kidney disease with stage 1 through stage 4 chronic kidney disease, or unspecified chronic kidney disease; Z79.899 Other long term (current) drug therapy; Z88.1 Allergy status to other antibiotic agents; Z79.4 Long term (current) use of insulin
CPT/HCPCS: 93005

== ENCOUNTER → 2018-06-10 | Outpatient (REF) | payer OTHER | LOC: M LAB REF 13:30 | DX: L03.116 Cellulitis of left lower limb (principal) | CPT/HCPCS: 87186 ==

== ENCOUNTER 2018-06-19 09:53 | Inpatient (IN) | payer OTHER ==
[2018-06-19] MEDS ORDERED: ACETAMINOPHEN 325 MG TAB PO (10:15)
[2018-06-19 11:04] LABS: BASO % 0.2 % (0.0-1.0); HEMATOCRIT 25.4 % (42.0-52.0); HEMOGLOBIN 8.5 g/dl (13.5-17.5); IMMATURE GRANULOCYTE % 0.5 % (0-3.0); LYMPH # 0.3 10^3/uL (1.5-4.5); LYMPH % 2.2 % (24.0-44.0); MEAN CORPUSCULAR HEMOGLOBIN 27.6 pg (27.0-33.0); MEAN CORPUSCULAR HGB CONC 33.5 g/dl (32.0-36.5); MEAN CORPUSCULAR VOLUME 82.5 fl (80.0-96.0); MONO # 0.7 10^3/uL (0.0-0.8); MONO % 5.7 % (0.0-5.0); NEUTROPHILS # 11.8 10^3/uL (1.8-7.7); NEUTROPHILS % 91.4 % (36.0-66.0); PLATELET COUNT, AUTOMATED 266 10^3/uL (150-450); RED BLOOD COUNT 3.08 10^6/uL (4.30-6.10); RED CELL DISTRIBUTION WIDTH 13.3 % (11.5-14.5); WHITE BLOOD COUNT 12.9 10^3/uL (4.0-10.0)
[2018-06-19] MEDS: ONDANSETRON 4MG/2ML VIAL (J2405) IV ×3 (11:06→20:11)
[2018-06-19] MEDS: NS 1,000 ML IV ×4 (11:06→20:45)
[2018-06-19 11:23] LABS: OSMOLALITY SERUM 325 MOSM/KG (275-295)
[2018-06-19 11:24] LABS: BEDSIDE GLUCOSE 487 MG/DL (70-105)
[2018-06-19 11:26] LABS: LACTIC ACID SEPSIS PROTOCOL 1.5 MMOL/L (0.4-2.0)
[2018-06-19] MEDS: ACETAMINOPHEN 650 MG SUPP PR (11:29)
[2018-06-19 11:37] LABS: POSITIVE DIFF POS FLAG
[2018-06-19] MEDS: HumuLIN R (REGULAR) INSULIN (NovoLIN R) **100U/ML** PER UNIT IV (11:43)
[2018-06-19 11:44] LABS: ALBUMIN 3.1 GM/DL (3.2-5.2); ALBUMIN/GLOBULIN RATIO 0.72 (1.00-1.93); ALKALINE PHOSPHATASE 232 U/L (45-117); ALT/SGPT 76 U/L (12-78); ANION GAP 14 MEQ/L (8-16); AST/SGOT 24 U/L (7-37); BILIRUBIN,DIRECT 0.2 MG/DL (0.0-0.2); BILIRUBIN,TOTAL 0.9 MG/DL (0.2-1.0); BLOOD UREA NITROGEN 45 MG/DL (7-18); CALCIUM LEVEL 9.3 MG/DL (8.5-10.1); CARBON DIOXIDE LEVEL 22 MEQ/L (21-32); CHLORIDE LEVEL 98 MEQ/L (98-107); CPK CREATINE PHOSPHOKINASE 234 U/L (39-308); CREATININE FOR GFR 1.93 MG/DL (0.70-1.30); GLOMERULAR FILTRATION RATE 41.9 (>60); GLUCOSE, FASTING 540 MG/DL (70-100); LIPASE 46 U/L (73-393); MAGNESIUM LEVEL 2.1 MG/DL (1.8-2.4); MB/CK RELATIVE INDEX 0.51 (< OR =4); PHOSPHORUS LEVEL 4.3 MG/DL (2.5-4.9); POTASSIUM SERUM 5.2 MEQ/L (3.5-5.1); SODIUM LEVEL 134 MEQ/L (136-145); TOTAL PROTEIN 7.4 GM/DL (6.4-8.2); TROPONIN I < 0.02 NG/ML (< 0.10)
[2018-06-19 11:59] LABS: ACETONE/KETONE 39.82 MG/DL (<2.81)
[2018-06-19] MEDS ORDERED: LevoFLOXacin IV 750 MG in APPROPRIATE DILUENT 1 EA IV (12:00)
[2018-06-19 12:07] LABS: ESTIMATED AVERAGE GLUCOSE 212 MG/DL (60-110)
[2018-06-19 12:09] LABS: ABG BASE EXCESS -4.1 (-2.0-2.0); ABG HCO3 20.6 MEQ/L (22.0-26.0); ABG O2 SATURATION 97.5 % (95.0-99.0); ABG PARTIAL PRESSURE CO2 35.7 mmHg (35.0-45.0); ABG PARTIAL PRESSURE O2 102.5 mmHg (75.0-100.0); ABG STANDARD HCO3 21.1 MEQ/L (22.0-26.0); ABG TOTAL CO2 21.7 MEQ/L (22.0-29.0); ABG pH (ARTERIAL) 7.379 UNITS (7.350-7.450)
[2018-06-19] MEDS ORDERED: GI COCKTAIL 50ML BTL(HYOSCYAMINE/MAALOX/LIDOCAINE VISCOUS)(1:3:1) PO (12:15)
[2018-06-19 12:18] LABS: INFLUENZA A AMPLIFICATION NEGATIVE (NEGATIVE); INFLUENZA B AMPLIFICATION NEGATIVE (NEGATIVE)
[2018-06-19 12:19] LABS: BEDSIDE GLUCOSE 492 MG/DL (70-105)
[2018-06-19] MEDS: INSULIN HUMAN REGULAR 100 UNITS in NS 99 ML IV ×2 (12:19→14:49)
[2018-06-19] MEDS: NS IV (12:24)
[2018-06-19] MEDS: DILUENT IV (12:24)
[2018-06-19] MEDS: PANTOPRAZOLE 40MG INJ (PROTONIX) (C9113) IV ×2 (12:42→22:21)
[2018-06-19] MEDS ORDERED: KCL 20MEQ IN 100ML SWI (KRUN) 20 MEQ in APPROPRIATE DILUENT 1 EA IV (13:30)
[2018-06-19] MEDS: MEROPENEM INJ 2 GM in NS 100 ML IV (13:31)
[2018-06-19 13:33] LABS: BEDSIDE GLUCOSE 397 MG/DL (70-105)
[2018-06-19 14:50] LABS: BEDSIDE GLUCOSE 350 MG/DL (70-105)
[2018-06-19] MEDS: KCL 20MEQ in NS 1000ML 1,000 ML IV (14:53)
[2018-06-19 16:09] LABS: BEDSIDE GLUCOSE 280 MG/DL (70-105)
[2018-06-19 16:13] LABS: ANION GAP 10 MEQ/L (8-16); BLOOD UREA NITROGEN 45 MG/DL (7-18); CALCIUM LEVEL 8.7 MG/DL (8.5-10.1); CARBON DIOXIDE LEVEL 23 MEQ/L (21-32); CHLORIDE LEVEL 107 MEQ/L (98-107); CREATININE FOR GFR 2.04 MG/DL (0.70-1.30); GLOMERULAR FILTRATION RATE 39.3 (>60); GLUCOSE, FASTING 307 MG/DL (70-100); POTASSIUM SERUM 4.8 MEQ/L (3.5-5.1); SODIUM LEVEL 140 MEQ/L (136-145)
[2018-06-19] MEDS: INSULIN IV RATE CHANGE DOCUMENTATION ML/HR XX (16:16)
[2018-06-19] MEDS: HEPARIN SOD (PORCINE) 5000 UNITS/ML VIAL SC ×2 (16:35→22:00)
[2018-06-19] MEDS: VANCOMYCIN HCL 1,000 MG, VIAL MATE ADAPTER 1 EACH in NS 250 ML IV (16:35)
[2018-06-19] MEDS: GABAPENTIN 400 MG CAP PO ×2 (16:35→20:13)
[2018-06-19 17:21] LABS: BEDSIDE GLUCOSE 276 MG/DL (70-105)
[2018-06-19] MEDS: PROMETHAZINE INJ 25 MG/ML VIAL (J2550) IV (17:29)
[2018-06-19 18:00] LABS: BEDSIDE GLUCOSE 278 MG/DL (70-105)
[2018-06-19 18:01] LABS: ANION GAP 8 MEQ/L (8-16); BLOOD UREA NITROGEN 45 MG/DL (7-18); CALCIUM LEVEL 8.6 MG/DL (8.5-10.1); CARBON DIOXIDE LEVEL 25 MEQ/L (21-32); CHLORIDE LEVEL 107 MEQ/L (98-107); CREATININE FOR GFR 2.05 MG/DL (0.70-1.30); GLOMERULAR FILTRATION RATE 39.1 (>60); GLUCOSE, FASTING 272 MG/DL (70-100); POTASSIUM SERUM 4.8 MEQ/L (3.5-5.1); SODIUM LEVEL 140 MEQ/L (136-145)
[2018-06-19 19:13] LABS: BEDSIDE GLUCOSE 247 MG/DL (70-105)
[2018-06-19 20:06] LABS: ANION GAP 8 MEQ/L (8-16); BLOOD UREA NITROGEN 45 MG/DL (7-18); CALCIUM LEVEL 8.7 MG/DL (8.5-10.1); CARBON DIOXIDE LEVEL 24 MEQ/L (21-32); CHLORIDE LEVEL 107 MEQ/L (98-107); CREATININE FOR GFR 2.02 MG/DL (0.70-1.30); GLOMERULAR FILTRATION RATE 39.8 (>60); GLUCOSE, FASTING 276 MG/DL (70-100); SODIUM LEVEL 139 MEQ/L (136-145)
[2018-06-19] MEDS: CARVedilol 12.5 MG TAB PO (20:13)
[2018-06-19] MEDS: DOCUSATE SODIUM 100 MG CAP PO (20:13)
[2018-06-19 20:17] LABS: BEDSIDE GLUCOSE 255 MG/DL (70-105)
[2018-06-19 20:59] LABS: BEDSIDE GLUCOSE 263 MG/DL (70-105)
[2018-06-19 21:56] LABS: ANION GAP 7 MEQ/L (8-16); BLOOD UREA NITROGEN 44 MG/DL (7-18); CALCIUM LEVEL 8.6 MG/DL (8.5-10.1); CARBON DIOXIDE LEVEL 25 MEQ/L (21-32); CHLORIDE LEVEL 106 MEQ/L (98-107); CREATININE FOR GFR 1.84 MG/DL (0.70-1.30); GLOMERULAR FILTRATION RATE 44.3 (>60); GLUCOSE, FASTING 270 MG/DL (70-100); POTASSIUM SERUM 4.7 MEQ/L (3.5-5.1); SODIUM LEVEL 138 MEQ/L (136-145)
[2018-06-19 22:01] LABS: BEDSIDE GLUCOSE 250 MG/DL (70-105)
[2018-06-19] MEDS: ACETAMINOPHEN TAB 650MG DOSE (2X325MG) PO (22:21)
[2018-06-19 23:04] LABS: BEDSIDE GLUCOSE 247 MG/DL (70-105)
[2018-06-19 23:49] LABS: BEDSIDE GLUCOSE 240 MG/DL (70-105)
[2018-06-19 23:56] LABS: ANION GAP 7 MEQ/L (8-16); BLOOD UREA NITROGEN 47 MG/DL (7-18); CALCIUM LEVEL 8.5 MG/DL (8.5-10.1); CARBON DIOXIDE LEVEL 24 MEQ/L (21-32); CHLORIDE LEVEL 107 MEQ/L (98-107); CREATININE FOR GFR 1.89 MG/DL (0.70-1.30); GLOMERULAR FILTRATION RATE 42.9 (>60); GLUCOSE, FASTING 249 MG/DL (70-100); POTASSIUM SERUM 4.8 MEQ/L (3.5-5.1); SODIUM LEVEL 138 MEQ/L (136-145)
[2018-06-20 01:01] LABS: BEDSIDE GLUCOSE 214 MG/DL (70-105)
[2018-06-20 01:59] LABS: BEDSIDE GLUCOSE 204 MG/DL (70-105)
[2018-06-20 03:00] LABS: BEDSIDE GLUCOSE 176 MG/DL (70-105)
[2018-06-20] MEDS: D5W/0.45% SODIUM CHLORIDE 1,000 ML IV ×2 (03:03→22:18)
[2018-06-20] MEDS: INSULIN IV RATE CHANGE DOCUMENTATION ML/HR XX ×7 (03:03→19:55)
[2018-06-20] MEDS: ONDANSETRON 4MG/2ML VIAL (J2405) IV ×2 (03:17→10:21)
[2018-06-20 04:10] LABS: BEDSIDE GLUCOSE 207 MG/DL (70-105)
[2018-06-20 04:51] LABS: BASO % 0.4 % (0.0-1.0); HEMATOCRIT 25.9 % (42.0-52.0); HEMOGLOBIN 8.2 g/dl (13.5-17.5); IMMATURE GRANULOCYTE % 0.3 % (0-3.0); LYMPH # 0.3 10^3/uL (1.5-4.5); LYMPH % 4.7 % (24.0-44.0); MEAN CORPUSCULAR HEMOGLOBIN 26.6 pg (27.0-33.0); MEAN CORPUSCULAR HGB CONC 31.7 g/dl (32.0-36.5); MEAN CORPUSCULAR VOLUME 84.1 fl (80.0-96.0); MONO # 0.4 10^3/uL (0.0-0.8); MONO % 5.1 % (0.0-5.0); NEUTROPHILS # 6.1 10^3/uL (1.8-7.7); NEUTROPHILS % 89.5 % (36.0-66.0); PLATELET COUNT, AUTOMATED 241 10^3/uL (150-450); RED BLOOD COUNT 3.08 10^6/uL (4.30-6.10); RED CELL DISTRIBUTION WIDTH 13.6 % (11.5-14.5); WHITE BLOOD COUNT 6.8 10^3/uL (4.0-10.0)
[2018-06-20 04:58] LABS: BEDSIDE GLUCOSE 200 MG/DL (70-105)
[2018-06-20] MEDS: HEPARIN SOD (PORCINE) 5000 UNITS/ML VIAL SC ×3 (05:04→22:00)
[2018-06-20] MEDS: NS 1,000 ML IV ×2 (05:05→15:11)
[2018-06-20 05:13] LABS: ANION GAP 8 MEQ/L (8-16); BLOOD UREA NITROGEN 46 MG/DL (7-18); CALCIUM LEVEL 8.5 MG/DL (8.5-10.1); CARBON DIOXIDE LEVEL 24 MEQ/L (21-32); CHLORIDE LEVEL 108 MEQ/L (98-107); CREATININE FOR GFR 1.81 MG/DL (0.70-1.30); GLOMERULAR FILTRATION RATE 45.1 (>60); GLUCOSE, FASTING 200 MG/DL (70-100); POTASSIUM SERUM 4.5 MEQ/L (3.5-5.1); SODIUM LEVEL 140 MEQ/L (136-145)
[2018-06-20] MEDS: PROMETHAZINE INJ 25 MG/ML VIAL (J2550) IV ×4 (05:57→20:16)
[2018-06-20 06:04] LABS: BEDSIDE GLUCOSE 194 MG/DL (70-105)
[2018-06-20 06:52] LABS: BEDSIDE GLUCOSE 234 MG/DL (70-105)
[2018-06-20] MEDS: DOCUSATE SODIUM 100 MG CAP PO ×2 (08:39→20:56)
[2018-06-20] MEDS: GABAPENTIN 400 MG CAP PO ×3 (08:39→20:56)
[2018-06-20] MEDS: PANTOPRAZOLE 40MG TAB (PROTONIX) PO (08:39)
[2018-06-20] MEDS: DULoxetine 30 MG CAP (CYMBALTA) PO (08:39)
[2018-06-20] MEDS: CARVedilol 12.5 MG TAB PO ×2 (08:40→20:55)
[2018-06-20 08:43] LABS: ANION GAP 7 MEQ/L (8-16); BLOOD UREA NITROGEN 43 MG/DL (7-18); CALCIUM LEVEL 8.4 MG/DL (8.5-10.1); CARBON DIOXIDE LEVEL 25 MEQ/L (21-32); CHLORIDE LEVEL 107 MEQ/L (98-107); CREATININE FOR GFR 1.66 MG/DL (0.70-1.30); GLOMERULAR FILTRATION RATE 49.9 (>60); GLUCOSE, FASTING 265 MG/DL (70-100); POTASSIUM SERUM 4.5 MEQ/L (3.5-5.1); SODIUM LEVEL 139 MEQ/L (136-145)
[2018-06-20 08:43] LABS: BEDSIDE GLUCOSE 252 MG/DL (70-105)
[2018-06-20] MEDS: VANCOMYCIN HCL 1,000 MG, VIAL MATE ADAPTER 1 EACH in NS 250 ML IV ×2 (09:19→22:16)
[2018-06-20 10:16] LABS: BEDSIDE GLUCOSE 242 MG/DL (70-105)
[2018-06-20 10:46] LABS: ERYTHROCYTE SEDIMENTATION RATE 127 mm/hr (0-15)
[2018-06-20] MEDS: SUCRALFATE SUSP 1GM/10ML UD PO ×3 (11:58→23:36)
[2018-06-20] MEDS: FAMOTIDINE 20 MG TAB PO ×2 (11:58→20:56)
[2018-06-20 12:04] LABS: BEDSIDE GLUCOSE 266 MG/DL (70-105)
[2018-06-20 12:46] LABS: ANION GAP 9 MEQ/L (8-16); BLOOD UREA NITROGEN 45 MG/DL (7-18); CALCIUM LEVEL 8.7 MG/DL (8.5-10.1); CARBON DIOXIDE LEVEL 23 MEQ/L (21-32); CHLORIDE LEVEL 106 MEQ/L (98-107); CREATININE FOR GFR 1.63 MG/DL (0.70-1.30); GLOMERULAR FILTRATION RATE 50.9 (>60); GLUCOSE, FASTING 288 MG/DL (70-100); POTASSIUM SERUM 4.5 MEQ/L (3.5-5.1); SODIUM LEVEL 138 MEQ/L (136-145)
[2018-06-20 13:25] LABS: BEDSIDE GLUCOSE 327 MG/DL (70-105)
[2018-06-20] MEDS: MEROPENEM INJ 2 GM in NS 100 ML IV (13:29)
[2018-06-20 13:42] LABS: KETONE, URINE AUTO RFX TRACE mg/dL (NEGATIVE); LEUKOCYTE ESTERASE UR AUTO RFX NEGATIVE (NEGATIVE); MUCUS, URINE RFX SMALL (NEGATIVE); NITRITE, URINE AUTO RFX NEGATIVE (NEGATIVE); RBC, URINE AUTO RFX 6 /HPF (0-3); SPECIFIC GRAVITY UR AUTO RFX 1.017 (1.002-1.035); SQUAM EPITHELIAL CELL UR AURFX 0 /HPF (0-6); WBC, URINE AUTO RFX 2 /HPF (0-3)
[2018-06-20] MEDS: METOCLOPRAMIDE 5 MG TAB PO (14:54)
[2018-06-20] MEDS: ACETAMINOPHEN TAB 650MG DOSE (2X325MG) PO (14:54)
[2018-06-20] MEDS: ALPRAZolam 0.25 MG TAB PO ×2 (14:55→20:57)
[2018-06-20 15:09] LABS: BEDSIDE GLUCOSE 346 MG/DL (70-105)
[2018-06-20 15:13] LABS: ALBUMIN 2.3 GM/DL (3.2-5.2); ALBUMIN/GLOBULIN RATIO 0.48 (1.00-1.93); ALKALINE PHOSPHATASE 183 U/L (45-117); ALT/SGPT 44 U/L (12-78); ANION GAP 11 MEQ/L (8-16); AST/SGOT 18 U/L (7-37); BILIRUBIN,TOTAL 0.7 MG/DL (0.2-1.0); BLOOD UREA NITROGEN 41 MG/DL (7-18); CALCIUM LEVEL 8.5 MG/DL (8.5-10.1); CARBON DIOXIDE LEVEL 20 MEQ/L (21-32); CHLORIDE LEVEL 107 MEQ/L (98-107); CREATININE FOR GFR 1.59 MG/DL (0.70-1.30); GLOMERULAR FILTRATION RATE 52.4 (>60); GLUCOSE, FASTING 330 MG/DL (70-100); LIPASE 46 U/L (73-393); MAGNESIUM LEVEL 2.1 MG/DL (1.8-2.4); POTASSIUM SERUM 4.7 MEQ/L (3.5-5.1); SODIUM LEVEL 138 MEQ/L (136-145); TOTAL PROTEIN 7.1 GM/DL (6.4-8.2)
[2018-06-20 16:06] LABS: BEDSIDE GLUCOSE 319 MG/DL (70-105)
[2018-06-20 16:07] LABS: NT-PRO BNP 15535 PG/ML (<125)
[2018-06-20 16:45] LABS: BEDSIDE GLUCOSE 308 MG/DL (70-105)
[2018-06-20] MEDS: INSULIN HUMAN REGULAR 100 UNITS in NS 99 ML IV (18:31)
[2018-06-20 18:36] LABS: BEDSIDE GLUCOSE 273 MG/DL (70-105)
[2018-06-20 19:56] LABS: BEDSIDE GLUCOSE 255 MG/DL (70-105)
[2018-06-20 21:08] LABS: BEDSIDE GLUCOSE 234 MG/DL (70-105)
[2018-06-20 21:35] LABS: ANION GAP 7 MEQ/L (8-16); BLOOD UREA NITROGEN 41 MG/DL (7-18); CALCIUM LEVEL 8.5 MG/DL (8.5-10.1); CARBON DIOXIDE LEVEL 23 MEQ/L (21-32); CHLORIDE LEVEL 109 MEQ/L (98-107); CREATININE FOR GFR 1.55 MG/DL (0.70-1.30); GLUCOSE, FASTING 238 MG/DL (70-100); POTASSIUM SERUM 4.6 MEQ/L (3.5-5.1); SODIUM LEVEL 139 MEQ/L (136-145)
[2018-06-20] MEDS ORDERED: DEXTROSE 50% 50 ML SYRINGE IV (22:00)
[2018-06-20] MEDS ORDERED: GLUCAGON FOR INJ 1 MG VIAL (J1610) SC (22:00)
[2018-06-20] MEDS: LEVEMIR (INSULIN DETEMIR) 1 UNITS/0.01ML SC (22:16)
[2018-06-21] MEDS: PROMETHAZINE INJ 25 MG/ML VIAL (J2550) IV ×3 (02:00→13:20)
[2018-06-21 02:29] LABS: ANION GAP 7 MEQ/L (8-16); BLOOD UREA NITROGEN 37 MG/DL (7-18); CALCIUM LEVEL 8.3 MG/DL (8.5-10.1); CARBON DIOXIDE LEVEL 24 MEQ/L (21-32); CHLORIDE LEVEL 110 MEQ/L (98-107); CREATININE FOR GFR 1.37 MG/DL (0.70-1.30); GLOMERULAR FILTRATION RATE > 60.0 (>60); GLUCOSE, FASTING 178 MG/DL (70-100); POTASSIUM SERUM 4.4 MEQ/L (3.5-5.1); SODIUM LEVEL 141 MEQ/L (136-145)
[2018-06-21] MEDS: D5W/0.45% SODIUM CHLORIDE 1,000 ML IV ×2 (04:40→09:21)
[2018-06-21] MEDS: SUCRALFATE SUSP 1GM/10ML UD PO ×4 (05:02→22:35)
[2018-06-21] MEDS: HEPARIN SOD (PORCINE) 5000 UNITS/ML VIAL SC ×3 (05:02→20:38)
[2018-06-21 05:39] LABS: ANION GAP 7 MEQ/L (8-16); BLOOD UREA NITROGEN 38 MG/DL (7-18); CALCIUM LEVEL 8.3 MG/DL (8.5-10.1); CARBON DIOXIDE LEVEL 26 MEQ/L (21-32); CHLORIDE LEVEL 109 MEQ/L (98-107); CREATININE FOR GFR 1.31 MG/DL (0.70-1.30); GLOMERULAR FILTRATION RATE > 60.0 (>60); GLUCOSE, FASTING 182 MG/DL (70-100); POTASSIUM SERUM 4.5 MEQ/L (3.5-5.1); SODIUM LEVEL 142 MEQ/L (136-145)
[2018-06-21 07:45] LABS: BASO % 0.4 % (0.0-1.0); EOS % 0.8 % (0.0-3.0); HEMATOCRIT 26.9 % (42.0-52.0); HEMOGLOBIN 8.6 g/dl (13.5-17.5); IMMATURE GRANULOCYTE % 0.6 % (0-3.0); LYMPH # 0.6 10^3/uL (1.5-4.5); LYMPH % 11.2 % (24.0-44.0); MEAN CORPUSCULAR HEMOGLOBIN 27.3 pg (27.0-33.0); MEAN CORPUSCULAR VOLUME 85.4 fl (80.0-96.0); MONO # 0.5 10^3/uL (0.0-0.8); MONO % 9.6 % (0.0-5.0); NEUTROPHILS # 3.8 10^3/uL (1.8-7.7); NEUTROPHILS % 77.4 % (36.0-66.0); PLATELET COUNT, AUTOMATED 261 10^3/uL (150-450); RED BLOOD COUNT 3.15 10^6/uL (4.30-6.10); RED CELL DISTRIBUTION WIDTH 13.4 % (11.5-14.5); WHITE BLOOD COUNT 4.9 10^3/uL (4.0-10.0)
[2018-06-21 07:46] LABS: ALBUMIN 2.4 GM/DL (3.2-5.2); ALKALINE PHOSPHATASE 154 U/L (45-117); ALT/SGPT 39 U/L (12-78); AST/SGOT 16 U/L (7-37); BILIRUBIN,TOTAL 0.6 MG/DL (0.2-1.0); MAGNESIUM LEVEL 2.2 MG/DL (1.8-2.4); TOTAL PROTEIN 6.4 GM/DL (6.4-8.2)
[2018-06-21] MEDS: HumaLOG INSULIN (NovoLOG) PER UNIT SC ×4 (08:30→20:37)
[2018-06-21] MEDS: PANTOPRAZOLE 40MG TAB (PROTONIX) PO (08:31)
[2018-06-21] MEDS: FERROUS SULFATE 325MG TAB PO (08:31)
[2018-06-21] MEDS: DOCUSATE SODIUM 100 MG CAP PO ×2 (08:31→20:36)
[2018-06-21] MEDS: ALPRAZolam 0.25 MG TAB PO ×2 (08:31→20:35)
[2018-06-21] MEDS: ACETAMINOPHEN TAB 650MG DOSE (2X325MG) PO (08:31)
[2018-06-21] MEDS: DULoxetine 30 MG CAP (CYMBALTA) PO (08:31)
[2018-06-21] MEDS: FAMOTIDINE 20 MG TAB PO ×2 (08:31→20:35)
[2018-06-21] MEDS: GABAPENTIN 400 MG CAP PO ×3 (08:31→20:35)
[2018-06-21] MEDS: CARVedilol 12.5 MG TAB PO ×3 (08:32→20:36)
[2018-06-21 09:19] LABS: BEDSIDE GLUCOSE 263 MG/DL (70-105)
[2018-06-21] MEDS: VANCOMYCIN HCL 1,000 MG, VIAL MATE ADAPTER 1 EACH in NS 250 ML IV ×2 (09:20→22:35)
[2018-06-21 12:55] LABS: BEDSIDE GLUCOSE 226 MG/DL (70-105)
[2018-06-21] MEDS: MEROPENEM INJ 2 GM in NS 100 ML IV (15:32)
[2018-06-21 17:52] LABS: BEDSIDE GLUCOSE 242 MG/DL (70-105)
[2018-06-21] MEDS: LEVEMIR (INSULIN DETEMIR) 1 UNITS/0.01ML SC (20:38)
[2018-06-21 20:54] LABS: BEDSIDE GLUCOSE 252 MG/DL (70-105)
[2018-06-21 21:31] LABS: VANCOMYCIN LEVEL TROUGH 20.3 UG/ML (10.0-20.0)
[2018-06-22 05:24] LABS: BASO % 0.4 % (0.0-1.0); EOS # 0.1 10^3/uL (0.0-0.50); EOS % 2.4 % (0.0-3.0); HEMATOCRIT 27.3 % (42.0-52.0); HEMOGLOBIN 8.8 g/dl (13.5-17.5); IMMATURE GRANULOCYTE % 0.7 % (0-3.0); LYMPH # 0.7 10^3/uL (1.5-4.5); LYMPH % 14.7 % (24.0-44.0); MEAN CORPUSCULAR HEMOGLOBIN 27.1 pg (27.0-33.0); MEAN CORPUSCULAR HGB CONC 32.2 g/dl (32.0-36.5); MONO # 0.5 10^3/uL (0.0-0.8); MONO % 10.1 % (0.0-5.0); NEUTROPHILS # 3.3 10^3/uL (1.8-7.7); NEUTROPHILS % 71.7 % (36.0-66.0); PLATELET COUNT, AUTOMATED 258 10^3/uL (150-450); RED BLOOD COUNT 3.25 10^6/uL (4.30-6.10); WHITE BLOOD COUNT 4.6 10^3/uL (4.0-10.0)
[2018-06-22 05:38] LABS: ALBUMIN 2.1 GM/DL (3.2-5.2); ALKALINE PHOSPHATASE 130 U/L (45-117); ALT/SGPT 27 U/L (12-78); ANION GAP 7 MEQ/L (8-16); AST/SGOT 16 U/L (7-37); BILIRUBIN,TOTAL 0.6 MG/DL (0.2-1.0); BLOOD UREA NITROGEN 25 MG/DL (7-18); CALCIUM LEVEL 8.1 MG/DL (8.5-10.1); CARBON DIOXIDE LEVEL 25 MEQ/L (21-32); CHLORIDE LEVEL 107 MEQ/L (98-107); GLOMERULAR FILTRATION RATE > 60.0 (>60); GLUCOSE, FASTING 206 MG/DL (70-100); MAGNESIUM LEVEL 1.9 MG/DL (1.8-2.4); SODIUM LEVEL 139 MEQ/L (136-145); TOTAL PROTEIN 6.3 GM/DL (6.4-8.2)
[2018-06-22] MEDS: SUCRALFATE SUSP 1GM/10ML UD PO ×4 (06:15→23:24)
[2018-06-22] MEDS: HumaLOG INSULIN (NovoLOG) PER UNIT SC ×6 (07:30→21:40)
[2018-06-22] MEDS: GABAPENTIN 400 MG CAP PO ×3 (09:00→21:22)
[2018-06-22] MEDS: PANTOPRAZOLE 40MG TAB (PROTONIX) PO (10:25)
[2018-06-22] MEDS: FAMOTIDINE 20 MG TAB PO ×2 (10:25→21:23)
[2018-06-22] MEDS: CARVedilol 12.5 MG TAB PO ×2 (10:26→21:41)
[2018-06-22] MEDS: ACETAMINOPHEN TAB 650MG DOSE (2X325MG) PO (10:26)
[2018-06-22] MEDS: DULoxetine 30 MG CAP (CYMBALTA) PO (10:26)
[2018-06-22] MEDS: DOCUSATE SODIUM 100 MG CAP PO ×2 (10:26→21:24)
[2018-06-22] MEDS: ALPRAZolam 0.25 MG TAB PO ×2 (10:28→21:24)
[2018-06-22 10:39] LABS: BEDSIDE GLUCOSE 246 MG/DL (70-105)
[2018-06-22] MEDS: VANCOMYCIN HCL 1,000 MG, VIAL MATE ADAPTER 1 EACH in NS 250 ML IV ×2 (10:48→21:25)
[2018-06-22] MEDS: PROMETHAZINE INJ 25 MG/ML VIAL (J2550) IV (14:57)
[2018-06-22 15:21] LABS: BEDSIDE GLUCOSE 232 MG/DL (70-105)
[2018-06-22] MEDS ORDERED: PROPOFOL 200 MG/20 ML VIAL As Ordered (16:15)
[2018-06-22] MEDS ORDERED: PROPOFOL 500 MG/50 ML VIAL As Ordered (16:15)
[2018-06-22] MEDS ORDERED: LIDOCAINE 2% INJ 100 MG/5 ML SDV (FOR ANES.) As Ordered (16:15)
[2018-06-22] MEDS ORDERED: MIDAZOLAM INJ 2 MG/2 ML VIAL (J2250) As Ordered (16:16)
[2018-06-22] MEDS ORDERED: fentaNYL 100 MCG/2 ML INJECTION (J3010) As Ordered ×2 (16:16→18:07)
[2018-06-22] MEDS: BUPIVACAINE HCL 0.5% 30 ML VIAL As Ordered (16:37)
[2018-06-22] MEDS: LIDOCAINE 1% SDV INJ 30 ML VIAL As Ordered (16:37)
[2018-06-22 17:55] LABS: BEDSIDE GLUCOSE 291 MG/DL (70-105)
[2018-06-22] MEDS ORDERED: HumaLOG INSULIN (NovoLOG) PER UNIT As Ordered (18:06)
[2018-06-22] MEDS ORDERED: PERCOCET 5MG/325MG TAB As Ordered ×2 (18:07→18:35)
[2018-06-22] MEDS ORDERED: ONDANSETRON 4MG/2ML VIAL (J2405) As Ordered (18:07)
[2018-06-22] MEDS: PERCOCET 5MG/325MG TAB PO ×2 (18:10→18:35)
[2018-06-22] MEDS: fentaNYL 100 MCG/2 ML INJECTION (J3010) IV ×4 (18:10→18:33)
[2018-06-22] MEDS: LR 1,000 ML IV (18:15)
[2018-06-22] MEDS: ONDANSETRON 4MG/2ML VIAL (J2405) IV (18:23)
[2018-06-22] MEDS ORDERED: LABETALOL HCL 100 MG/20 ML VIAL As Ordered (18:38)
[2018-06-22] MEDS: LABETALOL HCL 100 MG/20 ML VIAL IV ×4 (18:40→19:04)
[2018-06-22] MEDS: hydrALAZINE INJ 20 MG/ML VIAL IV ×4 (19:00→19:23)
[2018-06-22] MEDS ORDERED: hydrALAZINE INJ 20 MG/ML VIAL As Ordered (19:06)
[2018-06-22] MEDS: LEVEMIR (INSULIN DETEMIR) 1 UNITS/0.01ML SC (21:00)
[2018-06-22 21:50] LABS: BEDSIDE GLUCOSE 264 MG/DL (70-105)
[2018-06-22] MEDS: NORCO, ANEXSIA 5/325MG TABLET (HYDROcodone/ACETAMINOPHEN) PO (22:18)
[2018-06-23] MEDS: PERCOCET 5MG/325MG TAB PO ×4 (04:58→21:27)
[2018-06-23 05:01] LABS: BASO % 0.7 % (0.0-1.0); EOS # 0.1 10^3/uL (0.0-0.50); EOS % 1.6 % (0.0-3.0); HEMATOCRIT 23.7 % (42.0-52.0); HEMOGLOBIN 7.8 g/dl (13.5-17.5); IMMATURE GRANULOCYTE % 0.5 % (0-3.0); LYMPH # 0.9 10^3/uL (1.5-4.5); MEAN CORPUSCULAR HGB CONC 32.9 g/dl (32.0-36.5); MONO # 0.6 10^3/uL (0.0-0.8); MONO % 11.3 % (0.0-5.0); NEUTROPHILS # 3.9 10^3/uL (1.8-7.7); NEUTROPHILS % 69.9 % (36.0-66.0); PLATELET COUNT, AUTOMATED 231 10^3/uL (150-450); RED BLOOD COUNT 2.89 10^6/uL (4.30-6.10); RED CELL DISTRIBUTION WIDTH 12.8 % (11.5-14.5); WHITE BLOOD COUNT 5.5 10^3/uL (4.0-10.0)
[2018-06-23] MEDS: SUCRALFATE SUSP 1GM/10ML UD PO ×4 (05:03→18:44)
[2018-06-23] MEDS ORDERED: HEPARIN SOD (PORCINE) 5000 UNITS/ML VIAL As Ordered (05:05)
[2018-06-23] MEDS: HEPARIN SOD (PORCINE) 5000 UNITS/ML VIAL SC ×3 (05:07→21:25)
[2018-06-23 05:29] LABS: ALBUMIN 1.9 GM/DL (3.2-5.2); ALBUMIN/GLOBULIN RATIO 0.46 (1.00-1.93); ALKALINE PHOSPHATASE 108 U/L (45-117); ALT/SGPT 21 U/L (12-78); ANION GAP 5 MEQ/L (8-16); AST/SGOT 14 U/L (7-37); BILIRUBIN,TOTAL 0.5 MG/DL (0.2-1.0); BLOOD UREA NITROGEN 27 MG/DL (7-18); CARBON DIOXIDE LEVEL 27 MEQ/L (21-32); CHLORIDE LEVEL 104 MEQ/L (98-107); CREATININE FOR GFR 1.33 MG/DL (0.70-1.30); GLOMERULAR FILTRATION RATE > 60.0 (>60); GLUCOSE, FASTING 300 MG/DL (70-100); MAGNESIUM LEVEL 1.8 MG/DL (1.8-2.4); POTASSIUM SERUM 3.9 MEQ/L (3.5-5.1); SODIUM LEVEL 136 MEQ/L (136-145)
[2018-06-23 07:55] LABS: BEDSIDE GLUCOSE 268 MG/DL (70-105)
[2018-06-23] MEDS: FERROUS SULFATE 325MG TAB PO (08:52)
[2018-06-23] MEDS: GABAPENTIN 400 MG CAP PO ×3 (08:52→21:25)
[2018-06-23] MEDS: CARVedilol 12.5 MG TAB PO ×2 (08:52→21:25)
[2018-06-23] MEDS: DOCUSATE SODIUM 100 MG CAP PO ×2 (08:52→21:24)
[2018-06-23] MEDS: ALPRAZolam 0.25 MG TAB PO ×2 (08:52→21:24)
[2018-06-23] MEDS: DULoxetine 30 MG CAP (CYMBALTA) PO (08:52)
[2018-06-23] MEDS: FAMOTIDINE 20 MG TAB PO ×2 (08:52→21:24)
[2018-06-23] MEDS: PANTOPRAZOLE 40MG TAB (PROTONIX) PO (08:53)
[2018-06-23] MEDS: ACETAMINOPHEN TAB 650MG DOSE (2X325MG) PO (08:54)
[2018-06-23] MEDS: HumaLOG INSULIN (NovoLOG) PER UNIT SC ×4 (08:54→21:00)
[2018-06-23 09:42] LABS: VANCOMYCIN LEVEL TROUGH 27.7 UG/ML (10.0-20.0)
[2018-06-23 13:15] LABS: BEDSIDE GLUCOSE 201 MG/DL (70-105)
[2018-06-23 15:35] LABS: IMMEDIATE SPIN CROSSMATCH 1 2
[2018-06-23 18:25] LABS: BEDSIDE GLUCOSE 125 MG/DL (70-105)
[2018-06-23] MEDS: VANCOMYCIN HCL 1,000 MG, VIAL MATE ADAPTER 1 EACH in NS 250 ML IV (18:45)
[2018-06-23 21:18] LABS: BEDSIDE GLUCOSE 174 MG/DL (70-105)
[2018-06-23] MEDS: LEVEMIR (INSULIN DETEMIR) 1 UNITS/0.01ML SC (21:26)
[2018-06-24] MEDS: SUCRALFATE SUSP 1GM/10ML UD PO ×5 (00:08→23:59)
[2018-06-24] MEDS: PERCOCET 5MG/325MG TAB PO ×3 (04:54→19:54)
[2018-06-24 04:58] LABS: BASO % 0.5 % (0.0-1.0); EOS # 0.1 10^3/uL (0.0-0.50); EOS % 1.8 % (0.0-3.0); HEMATOCRIT 24.6 % (42.0-52.0); HEMOGLOBIN 8.2 g/dl (13.5-17.5); IMMATURE GRANULOCYTE % 0.5 % (0-3.0); LYMPH # 1.3 10^3/uL (1.5-4.5); LYMPH % 22.9 % (24.0-44.0); MEAN CORPUSCULAR HEMOGLOBIN 27.3 pg (27.0-33.0); MEAN CORPUSCULAR HGB CONC 33.3 g/dl (32.0-36.5); MONO # 0.6 10^3/uL (0.0-0.8); MONO % 10.5 % (0.0-5.0); NEUTROPHILS # 3.6 10^3/uL (1.8-7.7); NEUTROPHILS % 63.8 % (36.0-66.0); PLATELET COUNT, AUTOMATED 235 10^3/uL (150-450); RED CELL DISTRIBUTION WIDTH 13.1 % (11.5-14.5); WHITE BLOOD COUNT 5.6 10^3/uL (4.0-10.0)
[2018-06-24] MEDS: HEPARIN SOD (PORCINE) 5000 UNITS/ML VIAL SC ×3 (05:01→21:06)
[2018-06-24 05:25] LABS: ALBUMIN 2.2 GM/DL (3.2-5.2); ALBUMIN/GLOBULIN RATIO 0.61 (1.00-1.93); ALKALINE PHOSPHATASE 114 U/L (45-117); ALT/SGPT 18 U/L (12-78); ANION GAP 7 MEQ/L (8-16); AST/SGOT 17 U/L (7-37); BILIRUBIN,TOTAL 0.5 MG/DL (0.2-1.0); BLOOD UREA NITROGEN 26 MG/DL (7-18); CALCIUM LEVEL 7.9 MG/DL (8.5-10.1); CARBON DIOXIDE LEVEL 25 MEQ/L (21-32); CHLORIDE LEVEL 105 MEQ/L (98-107); CREATININE FOR GFR 1.27 MG/DL (0.70-1.30); GLOMERULAR FILTRATION RATE > 60.0 (>60); GLUCOSE, FASTING 145 MG/DL (70-100); MAGNESIUM LEVEL 1.8 MG/DL (1.8-2.4); POTASSIUM SERUM 3.8 MEQ/L (3.5-5.1); SODIUM LEVEL 137 MEQ/L (136-145); TOTAL PROTEIN 5.8 GM/DL (6.4-8.2)
[2018-06-24 05:52] LABS: ERYTHROCYTE SEDIMENTATION RATE 79 mm/hr (0-15)
[2018-06-24] MEDS: HumaLOG INSULIN (NovoLOG) PER UNIT SC ×4 (07:30→21:00)
[2018-06-24 08:25] LABS: BEDSIDE GLUCOSE 89 MG/DL (70-105)
[2018-06-24] MEDS: FAMOTIDINE 20 MG TAB PO ×2 (08:41→21:07)
[2018-06-24] MEDS: GABAPENTIN 400 MG CAP PO ×3 (08:41→21:06)
[2018-06-24] MEDS: DULoxetine 30 MG CAP (CYMBALTA) PO (08:41)
[2018-06-24] MEDS: DOCUSATE SODIUM 100 MG CAP PO ×2 (08:42→21:06)
[2018-06-24] MEDS: PANTOPRAZOLE 40MG TAB (PROTONIX) PO (08:42)
[2018-06-24] MEDS: CARVedilol 12.5 MG TAB PO ×2 (08:42→21:09)
[2018-06-24] MEDS: ALPRAZolam 0.25 MG TAB PO ×2 (08:42→21:07)
[2018-06-24 11:20] LABS: HEMATOCRIT 26.2 % (42.0-52.0); HEMOGLOBIN 8.6 g/dl (13.5-17.5)
[2018-06-24 12:35] LABS: BEDSIDE GLUCOSE 291 MG/DL (70-105)
[2018-06-24] MEDS: VANCOMYCIN HCL 1,000 MG, VIAL MATE ADAPTER 1 EACH in NS 250 ML IV (13:11)
[2018-06-24 18:13] LABS: BEDSIDE GLUCOSE 126 MG/DL (70-105)
[2018-06-24] MEDS: LEVEMIR (INSULIN DETEMIR) 1 UNITS/0.01ML SC (21:00)
[2018-06-24 21:11] LABS: BEDSIDE GLUCOSE 83 MG/DL (70-105)
[2018-06-24] MEDS: MORPHINE 4 MG/ML 1ML VIAL/SYRINGE (J2270) IV (22:32)
[2018-06-25] MEDS: SUCRALFATE SUSP 1GM/10ML UD PO ×3 (05:27→18:11)
[2018-06-25] MEDS: PERCOCET 5MG/325MG TAB PO ×6 (05:28→22:26)
[2018-06-25] MEDS: HEPARIN SOD (PORCINE) 5000 UNITS/ML VIAL SC ×3 (05:28→22:26)
[2018-06-25 05:37] LABS: BASO % 0.8 % (0.0-1.0); EOS # 0.1 10^3/uL (0.0-0.50); EOS % 1.2 % (0.0-3.0); HEMATOCRIT 24.8 % (42.0-52.0); HEMOGLOBIN 8.1 g/dl (13.5-17.5); IMMATURE GRANULOCYTE % 0.8 % (0-3.0); LYMPH % 21.1 % (24.0-44.0); MEAN CORPUSCULAR HEMOGLOBIN 27.6 pg (27.0-33.0); MEAN CORPUSCULAR HGB CONC 32.7 g/dl (32.0-36.5); MEAN CORPUSCULAR VOLUME 84.4 fl (80.0-96.0); MONO # 0.5 10^3/uL (0.0-0.8); MONO % 10.2 % (0.0-5.0); NEUTROPHILS # 3.2 10^3/uL (1.8-7.7); NEUTROPHILS % 65.9 % (36.0-66.0); PLATELET COUNT, AUTOMATED 232 10^3/uL (150-450); RED BLOOD COUNT 2.94 10^6/uL (4.30-6.10); WHITE BLOOD COUNT 4.9 10^3/uL (4.0-10.0)
[2018-06-25 06:09] LABS: ALBUMIN 2.2 GM/DL (3.2-5.2); ALBUMIN/GLOBULIN RATIO 0.49 (1.00-1.93); ALKALINE PHOSPHATASE 119 U/L (45-117); ALT/SGPT 19 U/L (12-78); ANION GAP 7 MEQ/L (8-16); AST/SGOT 22 U/L (7-37); BILIRUBIN,TOTAL 0.6 MG/DL (0.2-1.0); BLOOD UREA NITROGEN 24 MG/DL (7-18); CARBON DIOXIDE LEVEL 25 MEQ/L (21-32); CHLORIDE LEVEL 102 MEQ/L (98-107); CREATININE FOR GFR 1.28 MG/DL (0.70-1.30); GLOMERULAR FILTRATION RATE > 60.0 (>60); GLUCOSE, FASTING 452 MG/DL (70-100); MAGNESIUM LEVEL 1.9 MG/DL (1.8-2.4); POTASSIUM SERUM 4.4 MEQ/L (3.5-5.1); SODIUM LEVEL 134 MEQ/L (136-145); TOTAL PROTEIN 6.7 GM/DL (6.4-8.2); VANCOMYCIN LEVEL TROUGH 21.3 UG/ML (10.0-20.0)
[2018-06-25] MEDS: VANCOMYCIN HCL 1,000 MG, VIAL MATE ADAPTER 1 EACH in NS 250 ML IV (06:27)
[2018-06-25] MEDS: HumaLOG INSULIN (NovoLOG) PER UNIT SC ×4 (07:31→21:00)
[2018-06-25] MEDS: DOCUSATE SODIUM 100 MG CAP PO (08:59)
[2018-06-25] MEDS: CARVedilol 12.5 MG TAB PO ×2 (09:00→20:27)
[2018-06-25] MEDS: DULoxetine 30 MG CAP (CYMBALTA) PO (09:00)
[2018-06-25] MEDS: PANTOPRAZOLE 40MG TAB (PROTONIX) PO (09:01)
[2018-06-25] MEDS: ALPRAZolam 0.25 MG TAB PO ×2 (09:01→20:28)
[2018-06-25] MEDS: FERROUS SULFATE 325MG TAB PO (09:01)
[2018-06-25] MEDS: GABAPENTIN 400 MG CAP PO ×3 (09:01→20:27)
[2018-06-25] MEDS: FAMOTIDINE 20 MG TAB PO ×2 (09:02→20:28)
[2018-06-25 12:20] LABS: BEDSIDE GLUCOSE 387 MG/DL (70-105)
[2018-06-25] MEDS: MOM 30ML SUSPENSION UDC PO (12:21)
[2018-06-25 12:37] LABS: HEMATOCRIT 23.8 % (42.0-52.0); HEMOGLOBIN 7.8 g/dl (13.5-17.5)
[2018-06-25] MEDS: **hydrALAZINE** 10 MG TAB PO ×2 (13:47→22:25)
[2018-06-25 14:56] LABS: IMMEDIATE SPIN CROSSMATCH 1 2
[2018-06-25] MEDS ORDERED: MORPHINE 4 MG/ML 1ML VIAL/SYRINGE (J2270) IV (15:45)
[2018-06-25] MEDS: MORPHINE 4 MG/ML 1ML VIAL/SYRINGE (J2270) IV (16:06)
[2018-06-25] MEDS: ONDANSETRON 4MG/2ML VIAL (J2405) IV (16:55)
[2018-06-25 17:21] LABS: BEDSIDE GLUCOSE 153 MG/DL (70-105)
[2018-06-25 20:22] LABS: HEMATOCRIT 26.4 % (42.0-52.0); HEMOGLOBIN 8.9 g/dl (13.5-17.5); MEAN CORPUSCULAR HEMOGLOBIN 28.4 pg (27.0-33.0); MEAN CORPUSCULAR HGB CONC 33.7 g/dl (32.0-36.5); MEAN CORPUSCULAR VOLUME 84.3 fl (80.0-96.0); PLATELET COUNT, AUTOMATED 216 10^3/uL (150-450); RED BLOOD COUNT 3.13 10^6/uL (4.30-6.10); RED CELL DISTRIBUTION WIDTH 13.4 % (11.5-14.5); WHITE BLOOD COUNT 5.6 10^3/uL (4.0-10.0)
[2018-06-25 20:25] LABS: BEDSIDE GLUCOSE 133 MG/DL (70-105)
[2018-06-25] MEDS: SENOKOT S TAB PO (20:27)
[2018-06-25] MEDS: LEVEMIR (INSULIN DETEMIR) 1 UNITS/0.01ML SC (20:28)
[2018-06-25] MEDS: NORCO, ANEXSIA 5/325MG TABLET (HYDROcodone/ACETAMINOPHEN) PO (20:32)
[2018-06-25 23:37] LABS: VANCOMYCIN LEVEL TROUGH 23.5 UG/ML (10.0-20.0)
[2018-06-26 04:46] LABS: BASO % 0.8 % (0.0-1.0); EOS % 0.8 % (0.0-3.0); HEMATOCRIT 26.2 % (42.0-52.0); HEMOGLOBIN 8.7 g/dl (13.5-17.5); IMMATURE GRANULOCYTE % 0.6 % (0-3.0); LYMPH # 1.1 10^3/uL (1.5-4.5); LYMPH % 22.5 % (24.0-44.0); MEAN CORPUSCULAR HEMOGLOBIN 27.7 pg (27.0-33.0); MEAN CORPUSCULAR HGB CONC 33.2 g/dl (32.0-36.5); MEAN CORPUSCULAR VOLUME 83.4 fl (80.0-96.0); MONO # 0.6 10^3/uL (0.0-0.8); MONO % 11.9 % (0.0-5.0); NEUTROPHILS % 63.4 % (36.0-66.0); PLATELET COUNT, AUTOMATED 269 10^3/uL (150-450); RED BLOOD COUNT 3.14 10^6/uL (4.30-6.10); RED CELL DISTRIBUTION WIDTH 13.4 % (11.5-14.5); WHITE BLOOD COUNT 4.7 10^3/uL (4.0-10.0)
[2018-06-26 05:09] LABS: ALBUMIN 2.2 GM/DL (3.2-5.2); ALBUMIN/GLOBULIN RATIO 0.48 (1.00-1.93); ALKALINE PHOSPHATASE 120 U/L (45-117); ALT/SGPT 22 U/L (12-78); ANION GAP 6 MEQ/L (8-16); AST/SGOT 30 U/L (7-37); BILIRUBIN,TOTAL 0.6 MG/DL (0.2-1.0); BLOOD UREA NITROGEN 24 MG/DL (7-18); C REACTIVE PROTEIN QUANTITATIV 5.06 MG/DL (0.00-0.30); CALCIUM LEVEL 7.8 MG/DL (8.5-10.1); CARBON DIOXIDE LEVEL 26 MEQ/L (21-32); CHLORIDE LEVEL 105 MEQ/L (98-107); CREATININE FOR GFR 1.25 MG/DL (0.70-1.30); GLOMERULAR FILTRATION RATE > 60.0 (>60); GLUCOSE, FASTING 149 MG/DL (70-100); MAGNESIUM LEVEL 1.9 MG/DL (1.8-2.4); POTASSIUM SERUM 4.1 MEQ/L (3.5-5.1); SODIUM LEVEL 137 MEQ/L (136-145); TOTAL PROTEIN 6.8 GM/DL (6.4-8.2)
[2018-06-26] MEDS: VANCOMYCIN HCL 1,000 MG, VIAL MATE ADAPTER 1 EACH in D5W 250 ML IV (06:00)
[2018-06-26] MEDS: HEPARIN SOD (PORCINE) 5000 UNITS/ML VIAL SC (06:00)
[2018-06-26] MEDS: SUCRALFATE SUSP 1GM/10ML UD PO ×4 (06:00→18:24)
[2018-06-26] MEDS: **hydrALAZINE** 10 MG TAB PO ×3 (06:00→22:38)
[2018-06-26] MEDS: HumaLOG INSULIN (NovoLOG) PER UNIT SC ×4 (08:09→21:00)
[2018-06-26] MEDS: PERCOCET 5MG/325MG TAB PO ×4 (08:14→22:38)
[2018-06-26] MEDS: ONDANSETRON 4MG/2ML VIAL (J2405) IV (08:47)
[2018-06-26] MEDS: GABAPENTIN 400 MG CAP PO ×3 (09:16→20:13)
[2018-06-26] MEDS: DULoxetine 30 MG CAP (CYMBALTA) PO (09:17)
[2018-06-26] MEDS: FAMOTIDINE 20 MG TAB PO ×2 (09:17→20:13)
[2018-06-26] MEDS: ALPRAZolam 0.25 MG TAB PO ×2 (09:17→20:12)
[2018-06-26] MEDS: PANTOPRAZOLE 40MG TAB (PROTONIX) PO (09:17)
[2018-06-26] MEDS: CARVedilol 12.5 MG TAB PO ×2 (09:18→20:15)
[2018-06-26] MEDS: SENOKOT S TAB PO ×2 (09:18→20:13)
[2018-06-26] MEDS: MORPHINE 4 MG/ML 1ML VIAL/SYRINGE (J2270) IV ×3 (10:45→20:16)
[2018-06-26 12:18] LABS: BEDSIDE GLUCOSE 166 MG/DL (70-105)
[2018-06-26] MEDS: METOCLOPRAMIDE 5 MG TAB PO ×2 (12:29→20:13)
[2018-06-26 17:00] LABS: BEDSIDE GLUCOSE 222 MG/DL (70-105)
[2018-06-26 19:59] LABS: BEDSIDE GLUCOSE 189 MG/DL (70-105)
[2018-06-26] MEDS: LEVEMIR (INSULIN DETEMIR) 1 UNITS/0.01ML SC (20:16)
[2018-06-27] MEDS: SUCRALFATE SUSP 1GM/10ML UD PO ×5 (00:14→23:36)
[2018-06-27] MEDS: MORPHINE 4 MG/ML 1ML VIAL/SYRINGE (J2270) IV ×4 (00:18→23:43)
[2018-06-27] MEDS: PERCOCET 5MG/325MG TAB PO ×4 (04:36→21:17)
[2018-06-27 05:15] LABS: BASO % 0.8 % (0.0-1.0); EOS % 0.4 % (0.0-3.0); HEMOGLOBIN 8.9 g/dl (13.5-17.5); IMMATURE GRANULOCYTE % 0.4 % (0-3.0); LYMPH # 0.9 10^3/uL (1.5-4.5); LYMPH % 17.7 % (24.0-44.0); MEAN CORPUSCULAR HEMOGLOBIN 27.6 pg (27.0-33.0); MEAN CORPUSCULAR VOLUME 83.9 fl (80.0-96.0); MONO # 0.6 10^3/uL (0.0-0.8); MONO % 12.1 % (0.0-5.0); NEUTROPHILS # 3.6 10^3/uL (1.8-7.7); NEUTROPHILS % 68.6 % (36.0-66.0); PLATELET COUNT, AUTOMATED 277 10^3/uL (150-450); RED BLOOD COUNT 3.22 10^6/uL (4.30-6.10); RED CELL DISTRIBUTION WIDTH 13.8 % (11.5-14.5); WHITE BLOOD COUNT 5.2 10^3/uL (4.0-10.0)
[2018-06-27 05:39] LABS: VANCOMYCIN LEVEL TROUGH 17.1 UG/ML (10.0-20.0)
[2018-06-27 05:41] LABS: ALBUMIN 2.3 GM/DL (3.2-5.2); ALBUMIN/GLOBULIN RATIO 0.51 (1.00-1.93); ALKALINE PHOSPHATASE 148 U/L (45-117); ALT/SGPT 22 U/L (12-78); ANION GAP 6 MEQ/L (8-16); AST/SGOT 38 U/L (7-37); BILIRUBIN,TOTAL 0.6 MG/DL (0.2-1.0); BLOOD UREA NITROGEN 24 MG/DL (7-18); CARBON DIOXIDE LEVEL 27 MEQ/L (21-32); CHLORIDE LEVEL 105 MEQ/L (98-107); CREATININE FOR GFR 1.26 MG/DL (0.70-1.30); GLOMERULAR FILTRATION RATE > 60.0 (>60); GLUCOSE, FASTING 142 MG/DL (70-100); MAGNESIUM LEVEL 1.9 MG/DL (1.8-2.4); POTASSIUM SERUM 4.1 MEQ/L (3.5-5.1); SODIUM LEVEL 138 MEQ/L (136-145); TOTAL PROTEIN 6.8 GM/DL (6.4-8.2)
[2018-06-27] MEDS: VANCOMYCIN HCL 1,000 MG, VIAL MATE ADAPTER 1 EACH in D5W 250 ML IV (05:52)
[2018-06-27] MEDS: **hydrALAZINE** 10 MG TAB PO ×3 (05:53→21:17)
[2018-06-27] MEDS: HumaLOG INSULIN (NovoLOG) PER UNIT SC ×4 (08:26→21:21)
[2018-06-27] MEDS: ALPRAZolam 0.25 MG TAB PO ×2 (08:27→21:13)
[2018-06-27] MEDS: DULoxetine 30 MG CAP (CYMBALTA) PO (08:27)
[2018-06-27] MEDS: FAMOTIDINE 20 MG TAB PO ×2 (08:27→21:15)
[2018-06-27] MEDS: PANTOPRAZOLE 40MG TAB (PROTONIX) PO (08:27)
[2018-06-27] MEDS: FERROUS SULFATE 325MG TAB PO (08:27)
[2018-06-27] MEDS: SENOKOT S TAB PO ×2 (08:27→21:15)
[2018-06-27] MEDS: CARVedilol 12.5 MG TAB PO ×2 (08:27→21:16)
[2018-06-27] MEDS: GABAPENTIN 400 MG CAP PO ×3 (08:27→21:15)
[2018-06-27 11:47] LABS: BEDSIDE GLUCOSE 297 MG/DL (70-105)
[2018-06-27] MEDS ORDERED: LIDOCAINE 1% MDV 20ML VIAL As Ordered (14:48)
[2018-06-27] MEDS: dexameTHASONE 4 MG/ML 1ML VIAL (J1100) As Ordered (15:13)
[2018-06-27] MEDS: LIDOCAINE 1% SDV INJ 30 ML VIAL As Ordered (16:54)
[2018-06-27] MEDS: BUPIVACAINE HCL 0.5% 30 ML VIAL As Ordered (16:54)
[2018-06-27] MEDS ORDERED: fentaNYL 100 MCG/2 ML INJECTION (J3010) IV (18:30)
[2018-06-27] MEDS ORDERED: ONDANSETRON 4MG/2ML VIAL (J2405) IV (18:30)
[2018-06-27] MEDS: LR 1,000 ML IV (18:30)
[2018-06-27] MEDS ORDERED: PERCOCET 5MG/325MG TAB PO (18:30)
[2018-06-27 18:59] LABS: BEDSIDE GLUCOSE 139 MG/DL (70-105)
[2018-06-27 19:06] LABS: BEDSIDE GLUCOSE 184 MG/DL (70-105)
[2018-06-27 21:10] LABS: BEDSIDE GLUCOSE 129 MG/DL (70-105)
[2018-06-27] MEDS: LEVEMIR (INSULIN DETEMIR) 1 UNITS/0.01ML SC (21:17)
[2018-06-27] MEDS: SODIUM CHLORIDE 0.9% INJ 10 ML SYR IV (23:43)
[2018-06-28] MEDS: PERCOCET 5MG/325MG TAB PO ×4 (04:21→20:36)
[2018-06-28] MEDS: SUCRALFATE SUSP 1GM/10ML UD PO ×4 (05:12→23:33)
[2018-06-28] MEDS: SODIUM CHLORIDE 0.9% INJ 10 ML SYR IV ×4 (05:13→17:08)
[2018-06-28] MEDS: **hydrALAZINE** 10 MG TAB PO ×3 (05:13→21:42)
[2018-06-28] MEDS: VANCOMYCIN HCL 1,000 MG, VIAL MATE ADAPTER 1 EACH in D5W 250 ML IV (05:14)
[2018-06-28 05:38] LABS: BASO % 0.5 % (0.0-1.0); EOS % 0.4 % (0.0-3.0); HEMOGLOBIN 8.1 g/dl (13.5-17.5); IMMATURE GRANULOCYTE % 0.5 % (0-3.0); LYMPH # 0.9 10^3/uL (1.5-4.5); LYMPH % 15.3 % (24.0-44.0); MEAN CORPUSCULAR HEMOGLOBIN 27.6 pg (27.0-33.0); MEAN CORPUSCULAR HGB CONC 32.4 g/dl (32.0-36.5); MEAN CORPUSCULAR VOLUME 85.3 fl (80.0-96.0); MONO # 0.7 10^3/uL (0.0-0.8); NEUTROPHILS % 70.3 % (36.0-66.0); PLATELET COUNT, AUTOMATED 267 10^3/uL (150-450); RED BLOOD COUNT 2.93 10^6/uL (4.30-6.10); RED CELL DISTRIBUTION WIDTH 13.9 % (11.5-14.5); WHITE BLOOD COUNT 5.7 10^3/uL (4.0-10.0)
[2018-06-28 06:09] LABS: C REACTIVE PROTEIN QUANTITATIV 3.95 MG/DL (0.00-0.30)
[2018-06-28 06:15] LABS: ALBUMIN 2.2 GM/DL (3.2-5.2); ALBUMIN/GLOBULIN RATIO 0.56 (1.00-1.93); ALKALINE PHOSPHATASE 131 U/L (45-117); ALT/SGPT 19 U/L (12-78); ANION GAP 6 MEQ/L (8-16); AST/SGOT 35 U/L (7-37); BILIRUBIN,TOTAL 0.7 MG/DL (0.2-1.0); BLOOD UREA NITROGEN 23 MG/DL (7-18); CALCIUM LEVEL 7.7 MG/DL (8.5-10.1); CARBON DIOXIDE LEVEL 28 MEQ/L (21-32); CHLORIDE LEVEL 106 MEQ/L (98-107); CREATININE FOR GFR 1.28 MG/DL (0.70-1.30); GLOMERULAR FILTRATION RATE > 60.0 (>60); GLUCOSE, FASTING 113 MG/DL (70-100); POTASSIUM SERUM 4.3 MEQ/L (3.5-5.1); SODIUM LEVEL 140 MEQ/L (136-145); TOTAL PROTEIN 6.1 GM/DL (6.4-8.2)
[2018-06-28] MEDS: FAMOTIDINE 20 MG TAB PO ×2 (08:09→20:36)
[2018-06-28] MEDS: GABAPENTIN 400 MG CAP PO ×3 (08:09→20:36)
[2018-06-28] MEDS: DULoxetine 30 MG CAP (CYMBALTA) PO (08:09)
[2018-06-28] MEDS: SENOKOT S TAB PO ×2 (08:09→20:36)
[2018-06-28] MEDS: CARVedilol 12.5 MG TAB PO ×2 (08:09→17:09)
[2018-06-28] MEDS: PANTOPRAZOLE 40MG TAB (PROTONIX) PO (08:09)
[2018-06-28] MEDS: HumaLOG INSULIN (NovoLOG) PER UNIT SC ×4 (08:11→21:00)
[2018-06-28] MEDS: MORPHINE 4 MG/ML 1ML VIAL/SYRINGE (J2270) IV ×4 (08:13→17:14)
[2018-06-28] MEDS: FUROSEMIDE 40 MG/4 ML VIAL (J1940) IV (10:06)
[2018-06-28 11:26] LABS: BEDSIDE GLUCOSE 216 MG/DL (70-105)
[2018-06-28 12:05] LABS: HEMATOCRIT 26.9 % (42.0-52.0); HEMOGLOBIN 8.8 g/dl (13.5-17.5)
[2018-06-28 14:07] LABS: BEDSIDE GLUCOSE 118 MG/DL (70-105)
[2018-06-28] MEDS ORDERED: amLODIPine 10 MG TAB PO (14:45)
[2018-06-28] MEDS: HEPARIN SOD (PORCINE) 5000 UNITS/ML VIAL SC ×2 (14:53→21:40)
[2018-06-28 16:24] LABS: BEDSIDE GLUCOSE 189 MG/DL (70-105)
[2018-06-28] MEDS ORDERED: hydrALAZINE INJ 20 MG/ML VIAL IV (18:00)
[2018-06-28 20:18] LABS: BEDSIDE GLUCOSE 190 MG/DL (70-105)
[2018-06-28] MEDS: LEVEMIR (INSULIN DETEMIR) 1 UNITS/0.01ML SC (20:36)
[2018-06-29] MEDS: PERCOCET 5MG/325MG TAB PO ×6 (00:18→21:57)
[2018-06-29] MEDS: SUCRALFATE SUSP 1GM/10ML UD PO ×3 (06:02→17:20)
[2018-06-29] MEDS: HEPARIN SOD (PORCINE) 5000 UNITS/ML VIAL SC ×3 (06:02→20:56)
[2018-06-29] MEDS: **hydrALAZINE** 10 MG TAB PO (06:03)
[2018-06-29] MEDS: VANCOMYCIN HCL 1,000 MG, VIAL MATE ADAPTER 1 EACH in D5W 250 ML IV (06:16)
[2018-06-29 06:21] LABS: HEMATOCRIT 24.5 % (42.0-52.0); MEAN CORPUSCULAR HEMOGLOBIN 27.8 pg (27.0-33.0); MEAN CORPUSCULAR HGB CONC 32.7 g/dl (32.0-36.5); MEAN CORPUSCULAR VOLUME 85.1 fl (80.0-96.0); PLATELET COUNT, AUTOMATED 262 10^3/uL (150-450); RED BLOOD COUNT 2.88 10^6/uL (4.30-6.10); WHITE BLOOD COUNT 4.7 10^3/uL (4.0-10.0)
[2018-06-29 06:42] LABS: C REACTIVE PROTEIN QUANTITATIV 5.63 MG/DL (0.00-0.30)
[2018-06-29 06:44] LABS: ANION GAP 6 MEQ/L (8-16); BLOOD UREA NITROGEN 21 MG/DL (7-18); CALCIUM LEVEL 8.1 MG/DL (8.5-10.1); CARBON DIOXIDE LEVEL 30 MEQ/L (21-32); CHLORIDE LEVEL 104 MEQ/L (98-107); CREATININE FOR GFR 1.38 MG/DL (0.70-1.30); GLOMERULAR FILTRATION RATE > 60.0 (>60); GLUCOSE, FASTING 152 MG/DL (70-100); SODIUM LEVEL 140 MEQ/L (136-145)
[2018-06-29] MEDS: SODIUM CHLORIDE 0.9% INJ 10 ML SYR IV ×5 (07:29→20:29)
[2018-06-29] MEDS: HumaLOG INSULIN (NovoLOG) PER UNIT SC ×4 (08:12→20:29)
[2018-06-29] MEDS: FAMOTIDINE 20 MG TAB PO ×2 (08:16→20:30)
[2018-06-29] MEDS: PANTOPRAZOLE 40MG TAB (PROTONIX) PO (08:16)
[2018-06-29] MEDS: SENOKOT S TAB PO ×2 (08:16→20:31)
[2018-06-29] MEDS: FERROUS SULFATE 325MG TAB PO (08:16)
[2018-06-29] MEDS: DULoxetine 30 MG CAP (CYMBALTA) PO (08:18)
[2018-06-29] MEDS: GABAPENTIN 400 MG CAP PO ×3 (08:18→20:30)
[2018-06-29] MEDS: CARVedilol 12.5 MG TAB PO ×2 (08:18→18:15)
[2018-06-29 11:55] LABS: BEDSIDE GLUCOSE 93 MG/DL (70-105)
[2018-06-29] MEDS: METOCLOPRAMIDE 5 MG TAB PO (11:59)
[2018-06-29] MEDS: MORPHINE 4 MG/ML 1ML VIAL/SYRINGE (J2270) IV ×2 (12:33→20:30)
[2018-06-29 12:37] LABS: HEMATOCRIT 25.4 % (42.0-52.0); HEMOGLOBIN 8.3 g/dl (13.5-17.5)
[2018-06-29 13:57] LABS: CREATININE,RANDOM URINE 51.5 MG/DL
[2018-06-29 13:57] LABS: TOTAL PROTEIN,RANDOM URINE 88.8 MG/DL (0.0-12.0)
[2018-06-29] MEDS: LISINOPRIL 5 MG TAB PO ×2 (14:46→20:30)
[2018-06-29 16:53] LABS: BEDSIDE GLUCOSE 363 MG/DL (70-105)
[2018-06-29 20:03] LABS: BEDSIDE GLUCOSE 252 MG/DL (70-105)
[2018-06-29] MEDS: LEVEMIR (INSULIN DETEMIR) 1 UNITS/0.01ML SC (20:29)
[2018-06-30] MEDS: MORPHINE 4 MG/ML 1ML VIAL/SYRINGE (J2270) IV ×4 (00:35→21:30)
[2018-06-30] MEDS: SUCRALFATE SUSP 1GM/10ML UD PO ×5 (00:35→22:51)
[2018-06-30] MEDS: SODIUM CHLORIDE 0.9% INJ 10 ML SYR IV ×5 (00:36→17:35)
[2018-06-30] MEDS: PERCOCET 5MG/325MG TAB PO ×6 (03:55→22:52)
[2018-06-30] MEDS: HEPARIN SOD (PORCINE) 5000 UNITS/ML VIAL SC ×3 (04:59→21:30)
[2018-06-30 05:23] LABS: BASO % 0.6 % (0.0-1.0); EOS % 0.2 % (0.0-3.0); HEMOGLOBIN 8.2 g/dl (13.5-17.5); IMMATURE GRANULOCYTE % 0.2 % (0-3.0); LYMPH % 18.4 % (24.0-44.0); MEAN CORPUSCULAR HEMOGLOBIN 27.9 pg (27.0-33.0); MEAN CORPUSCULAR HGB CONC 32.8 g/dl (32.0-36.5); MONO # 0.6 10^3/uL (0.0-0.8); MONO % 11.9 % (0.0-5.0); NEUTROPHILS # 3.6 10^3/uL (1.8-7.7); NEUTROPHILS % 68.7 % (36.0-66.0); PLATELET COUNT, AUTOMATED 274 10^3/uL (150-450); RED BLOOD COUNT 2.94 10^6/uL (4.30-6.10); WHITE BLOOD COUNT 5.2 10^3/uL (4.0-10.0)
[2018-06-30 05:43] LABS: C REACTIVE PROTEIN QUANTITATIV 4.73 MG/DL (0.00-0.30)
[2018-06-30 05:48] LABS: ALBUMIN 2.1 GM/DL (3.2-5.2); ALBUMIN/GLOBULIN RATIO 0.44 (1.00-1.93); ALKALINE PHOSPHATASE 147 U/L (45-117); ALT/SGPT 22 U/L (12-78); ANION GAP 6 MEQ/L (8-16); AST/SGOT 42 U/L (7-37); BILIRUBIN,TOTAL 0.6 MG/DL (0.2-1.0); BLOOD UREA NITROGEN 21 MG/DL (7-18); CALCIUM LEVEL 8.1 MG/DL (8.5-10.1); CARBON DIOXIDE LEVEL 30 MEQ/L (21-32); CHLORIDE LEVEL 102 MEQ/L (98-107); CREATININE FOR GFR 1.22 MG/DL (0.70-1.30); GLOMERULAR FILTRATION RATE > 60.0 (>60); GLUCOSE, FASTING 122 MG/DL (70-100); MAGNESIUM LEVEL 1.9 MG/DL (1.8-2.4); POTASSIUM SERUM 4.3 MEQ/L (3.5-5.1); SODIUM LEVEL 138 MEQ/L (136-145); TOTAL PROTEIN 6.9 GM/DL (6.4-8.2)
[2018-06-30] MEDS: VANCOMYCIN HCL 1,000 MG, VIAL MATE ADAPTER 1 EACH in D5W 250 ML IV (06:04)
[2018-06-30] MEDS: HumaLOG INSULIN (NovoLOG) PER UNIT SC ×4 (08:57→20:11)
[2018-06-30] MEDS: GABAPENTIN 400 MG CAP PO ×3 (09:00→20:09)
[2018-06-30] MEDS: FAMOTIDINE 20 MG TAB PO ×2 (09:00→20:09)
[2018-06-30] MEDS: CARVedilol 12.5 MG TAB PO ×2 (09:00→20:13)
[2018-06-30] MEDS: PANTOPRAZOLE 40MG TAB (PROTONIX) PO (09:00)
[2018-06-30] MEDS: DULoxetine 30 MG CAP (CYMBALTA) PO (09:00)
[2018-06-30] MEDS: SENOKOT S TAB PO ×2 (09:00→20:09)
[2018-06-30] MEDS: LISINOPRIL 10 MG TAB PO (09:00)
[2018-06-30] MEDS: MOM 30ML SUSPENSION UDC PO (09:04)
[2018-06-30] MEDS: FUROSEMIDE 40 MG/4 ML VIAL (J1940) IV (09:05)
[2018-06-30 11:26] LABS: BEDSIDE GLUCOSE 210 MG/DL (70-105)
[2018-06-30 16:47] LABS: BEDSIDE GLUCOSE 234 MG/DL (70-105)
[2018-06-30] MEDS: LEVEMIR (INSULIN DETEMIR) 1 UNITS/0.01ML SC (20:11)
[2018-06-30] MEDS: LISINOPRIL 20 MG TAB PO (20:13)
[2018-06-30 20:19] LABS: BEDSIDE GLUCOSE 181 MG/DL (70-105)
[2018-06-30] MEDS: METOCLOPRAMIDE 5 MG TAB PO (21:30)
[2018-07-01] MEDS: PERCOCET 5MG/325MG TAB PO ×4 (04:32→22:06)
[2018-07-01] MEDS: HEPARIN SOD (PORCINE) 5000 UNITS/ML VIAL SC ×3 (05:59→22:03)
[2018-07-01] MEDS: SUCRALFATE SUSP 1GM/10ML UD PO ×3 (05:59→19:35)
[2018-07-01] MEDS: SODIUM CHLORIDE 0.9% INJ 10 ML SYR IV ×4 (05:59→19:36)
[2018-07-01] MEDS: VANCOMYCIN HCL 1,000 MG, VIAL MATE ADAPTER 1 EACH in D5W 250 ML IV (06:00)
[2018-07-01 06:22] LABS: BASO % 0.8 % (0.0-1.0); EOS % 0.3 % (0.0-3.0); HEMATOCRIT 24.1 % (42.0-52.0); HEMOGLOBIN 7.9 g/dl (13.5-17.5); IMMATURE GRANULOCYTE % 0.3 % (0-3.0); LYMPH # 0.8 10^3/uL (1.5-4.5); LYMPH % 22.5 % (24.0-44.0); MEAN CORPUSCULAR HEMOGLOBIN 28.3 pg (27.0-33.0); MEAN CORPUSCULAR HGB CONC 32.8 g/dl (32.0-36.5); MEAN CORPUSCULAR VOLUME 86.4 fl (80.0-96.0); MONO # 0.5 10^3/uL (0.0-0.8); MONO % 13.6 % (0.0-5.0); NEUTROPHILS # 2.3 10^3/uL (1.8-7.7); NEUTROPHILS % 62.5 % (36.0-66.0); PLATELET COUNT, AUTOMATED 270 10^3/uL (150-450); RED BLOOD COUNT 2.79 10^6/uL (4.30-6.10); WHITE BLOOD COUNT 3.7 10^3/uL (4.0-10.0)
[2018-07-01 06:44] LABS: ALBUMIN 2.3 GM/DL (3.2-5.2); ALBUMIN/GLOBULIN RATIO 0.56 (1.00-1.93); ALKALINE PHOSPHATASE 146 U/L (45-117); ALT/SGPT 19 U/L (12-78); ANION GAP 4 MEQ/L (8-16); AST/SGOT 45 U/L (7-37); BILIRUBIN,TOTAL 0.6 MG/DL (0.2-1.0); BLOOD UREA NITROGEN 17 MG/DL (7-18); CALCIUM LEVEL 8.3 MG/DL (8.5-10.1); CARBON DIOXIDE LEVEL 33 MEQ/L (21-32); CHLORIDE LEVEL 103 MEQ/L (98-107); CREATININE FOR GFR 1.22 MG/DL (0.70-1.30); GLOMERULAR FILTRATION RATE > 60.0 (>60); GLUCOSE, FASTING 74 MG/DL (70-100); MAGNESIUM LEVEL 1.9 MG/DL (1.8-2.4); POTASSIUM SERUM 4.2 MEQ/L (3.5-5.1); SODIUM LEVEL 140 MEQ/L (136-145); TOTAL PROTEIN 6.4 GM/DL (6.4-8.2)
[2018-07-01] MEDS: HumaLOG INSULIN (NovoLOG) PER UNIT SC ×5 (07:30→22:02)
[2018-07-01] MEDS: ACETAMINOPHEN TAB 650MG DOSE (2X325MG) PO (08:00)
[2018-07-01 08:06] LABS: C REACTIVE PROTEIN QUANTITATIV 2.96 MG/DL (0.00-0.30)
[2018-07-01 08:13] LABS: BEDSIDE GLUCOSE 113 MG/DL (70-105)
[2018-07-01] MEDS: FAMOTIDINE 20 MG TAB PO ×2 (10:08→22:04)
[2018-07-01] MEDS: GABAPENTIN 400 MG CAP PO ×3 (10:08→22:03)
[2018-07-01] MEDS: DULoxetine 30 MG CAP (CYMBALTA) PO (10:08)
[2018-07-01] MEDS: FERROUS SULFATE 325MG TAB PO (10:09)
[2018-07-01] MEDS: CARVedilol 12.5 MG TAB PO ×2 (10:09→22:05)
[2018-07-01] MEDS: LISINOPRIL 20 MG TAB PO ×2 (10:09→22:04)
[2018-07-01] MEDS: SENOKOT S TAB PO ×2 (10:09→22:03)
[2018-07-01] MEDS: PANTOPRAZOLE 40MG TAB (PROTONIX) PO (10:10)
[2018-07-01] MEDS: FUROSEMIDE 40 MG/4 ML VIAL (J1940) IV (10:10)
[2018-07-01] MEDS: MOM 30ML SUSPENSION UDC PO (10:10)
[2018-07-01 11:49] LABS: BEDSIDE GLUCOSE 264 MG/DL (70-105)
[2018-07-01] MEDS ORDERED: hydrALAZINE INJ 20 MG/ML VIAL IV (13:00)
[2018-07-01] MEDS: hydroCHLOROthiazide 12.5 MG CAPSULE PO (13:18)
[2018-07-01] MEDS: METOCLOPRAMIDE 5 MG TAB PO (13:21)
[2018-07-01 13:50] LABS: IMMEDIATE SPIN CROSSMATCH 1 1
[2018-07-01] MEDS: LACTULOSE 20 GM/30 ML SYRUP UD PO (14:33)
[2018-07-01 18:33] LABS: BEDSIDE GLUCOSE 315 MG/DL (70-105)
[2018-07-01 20:20] LABS: BEDSIDE GLUCOSE 396 MG/DL (70-105)
[2018-07-01 21:49] LABS: BEDSIDE GLUCOSE 367 MG/DL (70-105)
[2018-07-01] MEDS: LEVEMIR (INSULIN DETEMIR) 1 UNITS/0.01ML SC (22:02)
[2018-07-01 22:25] LABS: HEMATOCRIT 28.4 % (42.0-52.0); HEMOGLOBIN 9.3 g/dl (13.5-17.5)
[2018-07-02] MEDS: SUCRALFATE SUSP 1GM/10ML UD PO ×5 (00:26→23:48)
[2018-07-02] MEDS: SODIUM CHLORIDE 0.9% INJ 10 ML SYR IV ×2 (05:56→17:51)
[2018-07-02] MEDS: VANCOMYCIN HCL 1,000 MG, VIAL MATE ADAPTER 1 EACH in D5W 250 ML IV (05:56)
[2018-07-02] MEDS: HEPARIN SOD (PORCINE) 5000 UNITS/ML VIAL SC ×3 (05:57→21:21)
[2018-07-02] MEDS: PERCOCET 5MG/325MG TAB PO ×5 (06:15→23:49)
[2018-07-02 06:30] LABS: BASO % 0.9 % (0.0-1.0); EOS % 0.2 % (0.0-3.0); HEMATOCRIT 27.2 % (42.0-52.0); HEMOGLOBIN 8.9 g/dl (13.5-17.5); IMMATURE GRANULOCYTE % 0.2 % (0-3.0); LYMPH % 21.2 % (24.0-44.0); MEAN CORPUSCULAR HEMOGLOBIN 28.3 pg (27.0-33.0); MEAN CORPUSCULAR HGB CONC 32.7 g/dl (32.0-36.5); MEAN CORPUSCULAR VOLUME 86.3 fl (80.0-96.0); MONO # 0.5 10^3/uL (0.0-0.8); MONO % 11.7 % (0.0-5.0); NEUTROPHILS # 3.1 10^3/uL (1.8-7.7); NEUTROPHILS % 65.8 % (36.0-66.0); PLATELET COUNT, AUTOMATED 278 10^3/uL (150-450); RED BLOOD COUNT 3.15 10^6/uL (4.30-6.10); RED CELL DISTRIBUTION WIDTH 13.7 % (11.5-14.5); WHITE BLOOD COUNT 4.6 10^3/uL (4.0-10.0)
[2018-07-02 06:55] LABS: ALBUMIN 2.4 GM/DL (3.2-5.2); ALBUMIN/GLOBULIN RATIO 0.57 (1.00-1.93); ALKALINE PHOSPHATASE 136 U/L (45-117); ALT/SGPT 21 U/L (12-78); ANION GAP 5 MEQ/L (8-16); AST/SGOT 47 U/L (7-37); BILIRUBIN,TOTAL 0.7 MG/DL (0.2-1.0); BLOOD UREA NITROGEN 17 MG/DL (7-18); CALCIUM LEVEL 8.6 MG/DL (8.5-10.1); CARBON DIOXIDE LEVEL 33 MEQ/L (21-32); CHLORIDE LEVEL 102 MEQ/L (98-107); CREATININE FOR GFR 1.21 MG/DL (0.70-1.30); GLOMERULAR FILTRATION RATE > 60.0 (>60); GLUCOSE, FASTING 134 MG/DL (70-100); MAGNESIUM LEVEL 1.9 MG/DL (1.8-2.4); POTASSIUM SERUM 4.3 MEQ/L (3.5-5.1); SODIUM LEVEL 140 MEQ/L (136-145); TOTAL PROTEIN 6.6 GM/DL (6.4-8.2)
[2018-07-02] MEDS: HumaLOG INSULIN (NovoLOG) PER UNIT SC ×4 (08:30→21:22)
[2018-07-02] MEDS: DULoxetine 30 MG CAP (CYMBALTA) PO (08:43)
[2018-07-02] MEDS: LISINOPRIL 20 MG TAB PO ×2 (08:43→21:23)
[2018-07-02] MEDS: PANTOPRAZOLE 40MG TAB (PROTONIX) PO (08:44)
[2018-07-02] MEDS: hydroCHLOROthiazide 12.5 MG CAPSULE PO (08:44)
[2018-07-02] MEDS: GABAPENTIN 400 MG CAP PO ×3 (08:44→21:23)
[2018-07-02] MEDS: FAMOTIDINE 20 MG TAB PO ×2 (08:44→21:23)
[2018-07-02] MEDS: SENOKOT S TAB PO ×2 (08:45→21:23)
[2018-07-02] MEDS: CARVedilol 12.5 MG TAB PO ×2 (08:45→21:22)
[2018-07-02 11:54] LABS: BEDSIDE GLUCOSE 299 MG/DL (70-105)
[2018-07-02] MEDS: MORPHINE 4 MG/ML 1ML VIAL/SYRINGE (J2270) IV (17:04)
[2018-07-02 17:06] LABS: BEDSIDE GLUCOSE 275 MG/DL (70-105)
[2018-07-02 20:36] LABS: BEDSIDE GLUCOSE 258 MG/DL (70-105)
[2018-07-02] MEDS: LEVEMIR (INSULIN DETEMIR) 1 UNITS/0.01ML SC (21:21)
[2018-07-02] MEDS: ACETAMINOPHEN TAB 650MG DOSE (2X325MG) PO (21:23)
[2018-07-03] MEDS: HEPARIN SOD (PORCINE) 5000 UNITS/ML VIAL SC ×3 (05:27→20:23)
[2018-07-03] MEDS: SUCRALFATE SUSP 1GM/10ML UD PO ×3 (05:27→18:00)
[2018-07-03] MEDS: VANCOMYCIN HCL 1,000 MG, VIAL MATE ADAPTER 1 EACH in D5W 250 ML IV (05:27)
[2018-07-03] MEDS: SODIUM CHLORIDE 0.9% INJ 10 ML SYR IV ×2 (05:27→17:53)
[2018-07-03] MEDS: PERCOCET 5MG/325MG TAB PO ×4 (05:30→19:53)
[2018-07-03 05:40] LABS: EOS % 0.5 % (0.0-3.0); HEMATOCRIT 27.1 % (42.0-52.0); HEMOGLOBIN 8.9 g/dl (13.5-17.5); IMMATURE GRANULOCYTE % 0.3 % (0-3.0); LYMPH # 0.9 10^3/uL (1.5-4.5); LYMPH % 23.9 % (24.0-44.0); MEAN CORPUSCULAR HEMOGLOBIN 28.3 pg (27.0-33.0); MEAN CORPUSCULAR HGB CONC 32.8 g/dl (32.0-36.5); MEAN CORPUSCULAR VOLUME 86.3 fl (80.0-96.0); MONO # 0.5 10^3/uL (0.0-0.8); MONO % 11.9 % (0.0-5.0); NEUTROPHILS # 2.5 10^3/uL (1.8-7.7); NEUTROPHILS % 62.4 % (36.0-66.0); PLATELET COUNT, AUTOMATED 268 10^3/uL (150-450); RED BLOOD COUNT 3.14 10^6/uL (4.30-6.10); RED CELL DISTRIBUTION WIDTH 13.8 % (11.5-14.5); WHITE BLOOD COUNT 3.9 10^3/uL (4.0-10.0)
[2018-07-03 06:12] LABS: ALBUMIN 2.3 GM/DL (3.2-5.2); ALBUMIN/GLOBULIN RATIO 0.56 (1.00-1.93); ALKALINE PHOSPHATASE 127 U/L (45-117); ALT/SGPT 18 U/L (12-78); ANION GAP 2 MEQ/L (8-16); AST/SGOT 45 U/L (7-37); BILIRUBIN,TOTAL 0.5 MG/DL (0.2-1.0); BLOOD UREA NITROGEN 17 MG/DL (7-18); C REACTIVE PROTEIN QUANTITATIV 1.92 MG/DL (0.00-0.30); CALCIUM LEVEL 8.2 MG/DL (8.5-10.1); CARBON DIOXIDE LEVEL 35 MEQ/L (21-32); CHLORIDE LEVEL 101 MEQ/L (98-107); CREATININE FOR GFR 1.35 MG/DL (0.70-1.30); GLOMERULAR FILTRATION RATE > 60.0 (>60); GLUCOSE, FASTING 185 MG/DL (70-100); MAGNESIUM LEVEL 1.9 MG/DL (1.8-2.4); POTASSIUM SERUM 4.2 MEQ/L (3.5-5.1); SODIUM LEVEL 138 MEQ/L (136-145); TOTAL PROTEIN 6.4 GM/DL (6.4-8.2)
[2018-07-03] MEDS: HumaLOG INSULIN (NovoLOG) PER UNIT SC ×4 (08:23→20:26)
[2018-07-03] MEDS: PANTOPRAZOLE 40MG TAB (PROTONIX) PO (08:23)
[2018-07-03] MEDS: SENOKOT S TAB PO ×2 (08:23→20:24)
[2018-07-03] MEDS: hydroCHLOROthiazide 12.5 MG CAPSULE PO (08:24)
[2018-07-03] MEDS: FAMOTIDINE 20 MG TAB PO ×2 (08:24→20:26)
[2018-07-03] MEDS: FERROUS SULFATE 325MG TAB PO (08:24)
[2018-07-03] MEDS: DULoxetine 30 MG CAP (CYMBALTA) PO (08:24)
[2018-07-03] MEDS: GABAPENTIN 400 MG CAP PO ×3 (08:24→20:25)
[2018-07-03] MEDS: LISINOPRIL 20 MG TAB PO ×2 (08:25→20:25)
[2018-07-03] MEDS: CARVedilol 12.5 MG TAB PO ×2 (08:25→20:25)
[2018-07-03] MEDS: LEVEMIR (INSULIN DETEMIR) 1 UNITS/0.01ML SC ×2 (10:39→20:27)
[2018-07-03 11:54] LABS: BEDSIDE GLUCOSE 208 MG/DL (70-105)
[2018-07-03 16:22] LABS: BEDSIDE GLUCOSE 81 MG/DL (70-105)
[2018-07-03 19:54] LABS: BEDSIDE GLUCOSE 124 MG/DL (70-105)
[2018-07-04] MEDS: PERCOCET 5MG/325MG TAB PO (00:38)
[2018-07-04] MEDS: SUCRALFATE SUSP 1GM/10ML UD PO ×3 (00:38→12:53)
[2018-07-04 05:24] LABS: BEDSIDE GLUCOSE 46 MG/DL (70-105)
[2018-07-04 05:33] LABS: BASO % 0.8 % (0.0-1.0); EOS % 0.6 % (0.0-3.0); HEMATOCRIT 28.4 % (42.0-52.0); HEMOGLOBIN 9.2 g/dl (13.5-17.5); IMMATURE GRANULOCYTE % 0.2 % (0-3.0); LYMPH # 0.7 10^3/uL (1.5-4.5); MEAN CORPUSCULAR HEMOGLOBIN 28.4 pg (27.0-33.0); MEAN CORPUSCULAR HGB CONC 32.4 g/dl (32.0-36.5); MEAN CORPUSCULAR VOLUME 87.7 fl (80.0-96.0); MONO # 0.4 10^3/uL (0.0-0.8); MONO % 8.5 % (0.0-5.0); NEUTROPHILS # 3.7 10^3/uL (1.8-7.7); NEUTROPHILS % 75.9 % (36.0-66.0); PLATELET COUNT, AUTOMATED 268 10^3/uL (150-450); RED BLOOD COUNT 3.24 10^6/uL (4.30-6.10); RED CELL DISTRIBUTION WIDTH 13.8 % (11.5-14.5); WHITE BLOOD COUNT 4.9 10^3/uL (4.0-10.0)
[2018-07-04 05:48] LABS: BEDSIDE GLUCOSE 51 MG/DL (70-105)
[2018-07-04] MEDS: GLUCOSE 4 GM CHEW TABLET PO (05:54)
[2018-07-04 06:00] LABS: ALBUMIN 2.4 GM/DL (3.2-5.2); ALBUMIN/GLOBULIN RATIO 0.51 (1.00-1.93); ALKALINE PHOSPHATASE 128 U/L (45-117); ALT/SGPT 19 U/L (12-78); ANION GAP 3 MEQ/L (8-16); AST/SGOT 57 U/L (7-37); BILIRUBIN,TOTAL 0.5 MG/DL (0.2-1.0); BLOOD UREA NITROGEN 16 MG/DL (7-18); C REACTIVE PROTEIN QUANTITATIV 1.65 MG/DL (0.00-0.30); CALCIUM LEVEL 8.3 MG/DL (8.5-10.1); CARBON DIOXIDE LEVEL 32 MEQ/L (21-32); CHLORIDE LEVEL 107 MEQ/L (98-107); CREATININE FOR GFR 1.17 MG/DL (0.70-1.30); GLOMERULAR FILTRATION RATE > 60.0 (>60); GLUCOSE, FASTING 43 MG/DL (70-100); MAGNESIUM LEVEL 1.9 MG/DL (1.8-2.4); POTASSIUM SERUM 3.2 MEQ/L (3.5-5.1); SODIUM LEVEL 142 MEQ/L (136-145); TOTAL PROTEIN 7.1 GM/DL (6.4-8.2)
[2018-07-04 06:28] LABS: BEDSIDE GLUCOSE 72 MG/DL (70-105)
[2018-07-04] MEDS: HEPARIN SOD (PORCINE) 5000 UNITS/ML VIAL SC (06:39)
[2018-07-04] MEDS: VANCOMYCIN HCL 1,000 MG, VIAL MATE ADAPTER 1 EACH in D5W 250 ML IV (06:39)
[2018-07-04] MEDS: SODIUM CHLORIDE 0.9% INJ 10 ML SYR IV (06:40)
[2018-07-04 07:24] LABS: BEDSIDE GLUCOSE 165 MG/DL (70-105)
[2018-07-04] MEDS: HumaLOG INSULIN (NovoLOG) PER UNIT SC ×2 (07:24→12:00)
[2018-07-04] MEDS: GABAPENTIN 400 MG CAP PO (08:26)
[2018-07-04] MEDS: SENOKOT S TAB PO (08:26)
[2018-07-04] MEDS: DULoxetine 30 MG CAP (CYMBALTA) PO (08:26)
[2018-07-04] MEDS: CARVedilol 12.5 MG TAB PO (08:26)
[2018-07-04] MEDS: FAMOTIDINE 20 MG TAB PO (08:27)
[2018-07-04] MEDS: LISINOPRIL 20 MG TAB PO (08:27)
[2018-07-04] MEDS: hydroCHLOROthiazide 12.5 MG CAPSULE PO (08:27)
[2018-07-04] MEDS: PANTOPRAZOLE 40MG TAB (PROTONIX) PO (08:27)
[2018-07-04] MEDS: POTASSIUM CHLORIDE 10 MEQ SR TABLET PO (08:27)
[2018-07-04] MEDS: LEVEMIR (INSULIN DETEMIR) 1 UNITS/0.01ML SC (08:28)
[2018-07-04 11:41] LABS: BEDSIDE GLUCOSE 299 MG/DL (70-105)
== END 2018-07-04 14:08 | disposition home or self-care (01) | DRG 305 ==
LOC: M ICU 06-21 13:44 → M PCU 06-26 16:17 → M MS4PR 07-03 16:00 → M ICU 06-21 13:48 → M ED 09:53 → M ED INP 13:20 → M ICU 16:10
PROC: 0X610ZZ Detachment at Left Forequarter, Open Approach (ICD-10-PCS; principal; 2018-06-22 16:00)
PROC: 0Y6N0Z6 Detachment at Left Foot, Complete 3rd Ray, Open Approach (ICD-10-PCS; 2018-06-22 16:30)
PROC: 30233N1 Transfusion of Nonautologous Red Blood Cells into Peripheral Vein, Percutaneous Approach (ICD-10-PCS; 2018-06-22 16:30)
PROC: 02HV33Z Insertion of Infusion Device into Superior Vena Cava, Percutaneous Approach (ICD-10-PCS; 2018-06-22 16:30)
DX: T87.44 Infection of amputation stump, left lower extremity (principal); R65.20 Severe sepsis without septic shock; A41.9 Sepsis, unspecified organism; I50.23 Acute on chronic systolic (congestive) heart failure; N17.9 Acute kidney failure, unspecified; E10.10 Type 1 diabetes mellitus with ketoacidosis without coma; N18.3 Chronic kidney disease, stage 3 (moderate); I13.0 Hypertensive heart and chronic kidney disease with heart failure and stage 1 through stage 4 chronic kidney disease, or unspecified chronic kidney disease; E10.43 Type 1 diabetes mellitus with diabetic autonomic (poly)neuropathy; E10.649 Type 1 diabetes mellitus with hypoglycemia without coma; E10.621 Type 1 diabetes mellitus with foot ulcer; E10.319 Type 1 diabetes mellitus with unspecified diabetic retinopathy without macular edema; E10.65 Type 1 diabetes mellitus with hyperglycemia; M86.472 Chronic osteomyelitis with draining sinus, left ankle and foot; D62 Acute posthemorrhagic anemia; K21.9 Gastro-esophageal reflux disease without esophagitis; Z79.899 Other long term (current) drug therapy; Z88.0 Allergy status to penicillin; Z88.8 Allergy status to other drugs, medicaments and biological substances; B95.61 Methicillin susceptible Staphylococcus aureus infection as the cause of diseases classified elsewhere; D64.9 Anemia, unspecified; Z79.4 Long term (current) use of insulin; K59.00 Constipation, unspecified; Y83.5 Amputation of limb(s) as the cause of abnormal reaction of the patient, or of later complication, without mention of misadventure at the time of the procedure

== ENCOUNTER → 2018-07-11 | Outpatient (REF) | payer OTHER ==
[2018-07-11 13:18] LABS: ALBUMIN 2.9 GM/DL (3.2-5.2); ALBUMIN/GLOBULIN RATIO 0.64 (1.00-1.93); ALKALINE PHOSPHATASE 99 U/L (45-117); ALT/SGPT 17 U/L (12-78); ANION GAP 7 MEQ/L (8-16); AST/SGOT 40 U/L (7-37); BILIRUBIN,TOTAL 0.6 MG/DL (0.2-1.0); BLOOD UREA NITROGEN 16 MG/DL (7-18); C REACTIVE PROTEIN QUANTITATIV 1.05 MG/DL (0.00-0.30); CALCIUM LEVEL 8.8 MG/DL (8.5-10.1); CARBON DIOXIDE LEVEL 30 MEQ/L (21-32); CHLORIDE LEVEL 101 MEQ/L (98-107); CREATININE FOR GFR 1.28 MG/DL (0.70-1.30); GLOMERULAR FILTRATION RATE > 60.0 (>60); GLUCOSE, FASTING 178 MG/DL (70-100); POTASSIUM SERUM 4.2 MEQ/L (3.5-5.1); SODIUM LEVEL 138 MEQ/L (136-145); TOTAL PROTEIN 7.4 GM/DL (6.4-8.2); VANCOMYCIN LEVEL TROUGH 17.8 UG/ML (10.0-20.0)
[2018-07-11 13:22] LABS: BASO # 0.1 10^3/uL (0.0-0.2); BASO % 1.3 % (0.0-1.0); EOS # 0.2 10^3/uL (0.0-0.50); EOS % 4.2 % (0.0-3.0); HEMATOCRIT 30.4 % (42.0-52.0); HEMOGLOBIN 9.7 g/dl (13.5-17.5); IMMATURE GRANULOCYTE % 0.2 % (0-3.0); LYMPH # 0.9 10^3/uL (1.5-4.5); LYMPH % 20.5 % (24.0-44.0); MEAN CORPUSCULAR HEMOGLOBIN 28.2 pg (27.0-33.0); MEAN CORPUSCULAR HGB CONC 31.9 g/dl (32.0-36.5); MEAN CORPUSCULAR VOLUME 88.4 fl (80.0-96.0); MONO # 0.5 10^3/uL (0.0-0.8); MONO % 10.2 % (0.0-5.0); NEUTROPHILS # 2.9 10^3/uL (1.8-7.7); NEUTROPHILS % 63.6 % (36.0-66.0); PLATELET COUNT, AUTOMATED 249 10^3/uL (150-450); RED BLOOD COUNT 3.44 10^6/uL (4.30-6.10); RED CELL DISTRIBUTION WIDTH 14.2 % (11.5-14.5); WHITE BLOOD COUNT 4.5 10^3/uL (4.0-10.0)
[2018-07-11 14:22] LABS: ERYTHROCYTE SEDIMENTATION RATE 86 mm/hr (0-15)
== END ==
LOC: M SHH 12:17
DX: Z79.899 Other long term (current) drug therapy (principal)

== ENCOUNTER → 2018-07-19 | Outpatient (REF) | payer OTHER ==
[2018-07-19 12:45] LABS: BASO # 0.1 10^3/uL (0.0-0.2); BASO % 1.2 % (0.0-1.0); EOS # 0.1 10^3/uL (0.0-0.50); EOS % 1.7 % (0.0-3.0); HEMATOCRIT 29.5 % (42.0-52.0); HEMOGLOBIN 9.4 g/dl (13.5-17.5); IMMATURE GRANULOCYTE % 0.2 % (0-3.0); LYMPH # 1.2 10^3/uL (1.5-4.5); LYMPH % 29.4 % (24.0-44.0); MEAN CORPUSCULAR HEMOGLOBIN 27.8 pg (27.0-33.0); MEAN CORPUSCULAR HGB CONC 31.9 g/dl (32.0-36.5); MEAN CORPUSCULAR VOLUME 87.3 fl (80.0-96.0); MONO # 0.5 10^3/uL (0.0-0.8); MONO % 13.2 % (0.0-5.0); NEUTROPHILS # 2.2 10^3/uL (1.8-7.7); NEUTROPHILS % 54.3 % (36.0-66.0); PLATELET COUNT, AUTOMATED 183 10^3/uL (150-450); RED BLOOD COUNT 3.38 10^6/uL (4.30-6.10); RED CELL DISTRIBUTION WIDTH 13.9 % (11.5-14.5)
[2018-07-19 12:50] LABS: ALBUMIN 3.1 GM/DL (3.2-5.2); ALKALINE PHOSPHATASE 79 U/L (45-117); ALT/SGPT 17 U/L (12-78); ANION GAP 5 MEQ/L (8-16); AST/SGOT 29 U/L (7-37); BILIRUBIN,TOTAL 0.6 MG/DL (0.2-1.0); BLOOD UREA NITROGEN 20 MG/DL (7-18); C REACTIVE PROTEIN QUANTITATIV 0.54 MG/DL (0.00-0.30); CALCIUM LEVEL 8.9 MG/DL (8.5-10.1); CARBON DIOXIDE LEVEL 31 MEQ/L (21-32); CHLORIDE LEVEL 104 MEQ/L (98-107); CREATININE FOR GFR 1.41 MG/DL (0.70-1.30); GLOMERULAR FILTRATION RATE > 60.0 (>60); GLUCOSE, FASTING 172 MG/DL (70-100); POTASSIUM SERUM 4.7 MEQ/L (3.5-5.1); SODIUM LEVEL 140 MEQ/L (136-145); TOTAL PROTEIN 7.5 GM/DL (6.4-8.2); VANCOMYCIN LEVEL TROUGH 18.2 UG/ML (10.0-20.0)
[2018-07-19 13:27] LABS: ERYTHROCYTE SEDIMENTATION RATE 63 mm/hr (0-15)
== END ==
LOC: M LAB REF 11:48
DX: Z51.81 Encounter for therapeutic drug level monitoring (principal); Z79.2 Long term (current) use of antibiotics
CPT/HCPCS: 80053

== ENCOUNTER → 2018-07-25 | Outpatient (REF) | payer OTHER ==
[2018-07-25 12:57] LABS: BASO # 0.1 10^3/uL (0.0-0.2); BASO % 1.9 % (0.0-1.0); EOS # 0.1 10^3/uL (0.0-0.50); EOS % 2.7 % (0.0-3.0); HEMATOCRIT 31.7 % (42.0-52.0); HEMOGLOBIN 10.2 g/dl (13.5-17.5); LYMPH % 26.4 % (24.0-44.0); MEAN CORPUSCULAR HGB CONC 32.2 g/dl (32.0-36.5); MEAN CORPUSCULAR VOLUME 87.1 fl (80.0-96.0); MONO # 0.4 10^3/uL (0.0-0.8); MONO % 10.4 % (0.0-5.0); NEUTROPHILS # 2.1 10^3/uL (1.8-7.7); NEUTROPHILS % 58.6 % (36.0-66.0); PLATELET COUNT, AUTOMATED 199 10^3/uL (150-450); RED BLOOD COUNT 3.64 10^6/uL (4.30-6.10); RED CELL DISTRIBUTION WIDTH 13.5 % (11.5-14.5); WHITE BLOOD COUNT 3.6 10^3/uL (4.0-10.0)
[2018-07-25 13:39] LABS: ERYTHROCYTE SEDIMENTATION RATE 56 mm/hr (0-15)
[2018-07-25 14:03] LABS: ALBUMIN 3.2 GM/DL (3.2-5.2); ALBUMIN/GLOBULIN RATIO 0.73 (1.00-1.93); ALKALINE PHOSPHATASE 71 U/L (45-117); ALT/SGPT 17 U/L (12-78); ANION GAP 7 MEQ/L (8-16); AST/SGOT 32 U/L (7-37); BLOOD UREA NITROGEN 19 MG/DL (7-18); C REACTIVE PROTEIN QUANTITATIV < 0.30 MG/DL (0.00-0.30); CALCIUM LEVEL 8.5 MG/DL (8.5-10.1); CARBON DIOXIDE LEVEL 28 MEQ/L (21-32); CHLORIDE LEVEL 106 MEQ/L (98-107); CREATININE FOR GFR 1.22 MG/DL (0.70-1.30); GLOMERULAR FILTRATION RATE > 60.0 (>60); POTASSIUM SERUM 4.3 MEQ/L (3.5-5.1); SODIUM LEVEL 141 MEQ/L (136-145); TOTAL PROTEIN 7.6 GM/DL (6.4-8.2); VANCOMYCIN LEVEL TROUGH 17.3 UG/ML (10.0-20.0)
[2018-07-25 14:07] LABS: GLUCOSE, FASTING 32 MG/DL (70-100)
== END ==
LOC: M SHH 12:39
DX: M86.172 Other acute osteomyelitis, left ankle and foot (principal)
CPT/HCPCS: 80053

== ENCOUNTER → 2018-08-01 | Outpatient (REF) | payer OTHER ==
[~2018-08-01] MED LIST: ACET500T15 PO; ADME100I2 SC; AMLO5TAB4 PO; ASCO500T PO; BACT800T5 PO; BASA100I SC; CARV12.5 PO; CLEO150C PO; CLIN150C14 PO; COLA100C5 PO; CYMB1CAP5 PO; ELIQ5TAB PO; FERR1TAB8 PO; FERR325T3 PO; GABA-843 PO; GABA-845 PO; HYDR-3713 PO; HYDR12CA PO; IBUP-1022 PO; INSUR SC; LABE10TAB PO; LANTINJ4 SC; LEVA750T7 PO; LEVO500T3 PO; LISI-538 PO; LISI10TA4 PO; OMEP20CA3 PO; OXYC1TAB23 PO; PANT40TA3 PO; PATIENT COMMENTS; PERCOCET PO; SANT250O8 TOP; TEST1GEL10 TD; TEST30SO3 TD; TEST5GEL TOP; TOUJ1.2I SC; TYLE325C PO; VANC10005 INJ; VITA500T PO; ZOFR4TAB14 SL; insulin pen
[2018-08-01 10:09] LABS: BASO # 0.1 10^3/uL (0.0-0.2); BASO % 1.2 % (0.0-1.0); EOS # 0.1 10^3/uL (0.0-0.50); EOS % 2.6 % (0.0-3.0); HEMATOCRIT 29.6 % (42.0-52.0); HEMOGLOBIN 9.5 g/dl (13.5-17.5); LYMPH # 1.1 10^3/uL (1.5-4.5); LYMPH % 25.1 % (24.0-44.0); MEAN CORPUSCULAR HEMOGLOBIN 27.8 pg (27.0-33.0); MEAN CORPUSCULAR HGB CONC 32.1 g/dl (32.0-36.5); MEAN CORPUSCULAR VOLUME 86.5 fl (80.0-96.0); MONO # 0.4 10^3/uL (0.0-0.8); MONO % 9.6 % (0.0-5.0); NEUTROPHILS # 2.6 10^3/uL (1.8-7.7); NEUTROPHILS % 61.3 % (36.0-66.0); PLATELET COUNT, AUTOMATED 218 10^3/uL (150-450); RED BLOOD COUNT 3.42 10^6/uL (4.30-6.10); WHITE BLOOD COUNT 4.3 10^3/uL (4.0-10.0)
[2018-08-01 10:33] LABS: ERYTHROCYTE SEDIMENTATION RATE 49 mm/hr (0-15)
[2018-08-01 10:34] LABS: ALBUMIN 3.3 GM/DL (3.2-5.2); BILIRUBIN,TOTAL 0.8 MG/DL (0.2-1.0); C REACTIVE PROTEIN QUANTITATIV 0.3 MG/DL (0.00-0.30); CALCIUM LEVEL 8.8 MG/DL (8.5-10.1); CREATININE FOR GFR 1.51 MG/DL (0.70-1.30); GLOMERULAR FILTRATION RATE 55.6 (>60); POTASSIUM SERUM 4.4 MEQ/L (3.5-5.1); TOTAL PROTEIN 7.1 GM/DL (6.4-8.2)
== END ==
LOC: M SHH 09:22
PROVIDERS: ATTEND Internal Medicine Infectious Disease
DX: Z00.00 Encounter for general adult medical examination without abnormal findings (principal)

== ENCOUNTER → 2018-08-18 | Outpatient (REF) | payer OTHER ==
[~2018-08-18] MED LIST changes: -AMLO5TAB4 PO; +AMLO5TAB6 PO
[2018-08-18 12:34] LABS: BASO # 0.1 10^3/uL (0.0-0.2); BASO % 1.4 % (0.0-1.0); EOS # 0.1 10^3/uL (0.0-0.50); HEMATOCRIT 32.2 % (42.0-52.0); HEMOGLOBIN 10.7 g/dl (13.5-17.5); LYMPH % 28.4 % (24.0-44.0); MEAN CORPUSCULAR HEMOGLOBIN 28.4 pg (27.0-33.0); MEAN CORPUSCULAR HGB CONC 33.2 g/dl (32.0-36.5); MEAN CORPUSCULAR VOLUME 85.4 fl (80.0-96.0); MONO # 0.4 10^3/uL (0.0-0.8); MONO % 11.7 % (0.0-5.0); NEUTROPHILS % 55.2 % (36.0-66.0); PLATELET COUNT, AUTOMATED 260 10^3/uL (150-450); RED BLOOD COUNT 3.77 10^6/uL (4.30-6.10); WHITE BLOOD COUNT 3.7 10^3/uL (4.0-10.0)
[2018-08-18 12:37] LABS: BLOOD UREA NITROGEN 24 MG/DL (7-18); C REACTIVE PROTEIN QUANTITATIV < 0.30 MG/DL (0.00-0.30); CALCIUM LEVEL 9.2 MG/DL (8.5-10.1); CARBON DIOXIDE LEVEL 28 MEQ/L (21-32); CHLORIDE LEVEL 106 MEQ/L (98-107); CREATININE FOR GFR 1.46 MG/DL (0.70-1.30); GLOMERULAR FILTRATION RATE 57.8 (>60); GLUCOSE, FASTING 148 MG/DL (70-100); POTASSIUM SERUM 4.9 MEQ/L (3.5-5.1); SODIUM LEVEL 140 MEQ/L (136-145)
[2018-08-18 13:08] LABS: ERYTHROCYTE SEDIMENTATION RATE 28 mm/hr (0-15)
== END ==
LOC: M SFHCPLAZ 09:18
PROVIDERS: ATTEND Internal Medicine Infectious Disease
DX: M86.172 Other acute osteomyelitis, left ankle and foot (principal)

== ENCOUNTER → 2018-09-28 | Outpatient (CLI) | payer OTHER ==
[~2018-09-28] MED LIST changes: +CARV25TA PO; +LISI40TA PO; +MIRA3350 PO
--- NOTE | 2018-09-28 10:09 | REP ---
NUCLEAR GASTRIC EMPTYING SCAN: Following the oral administration of 1.06 mCi of technetium 99m sulfur colloid in two scrambled eggs in 6 ounces of water, multiple images of the upper abdomen are performed for 90 minutes in the anterior and posterior projections. At the end of 90 minutes, 23% of the ingested activity has emptied from the stomach. T-1/2 is calculated to be 179 minutes. Therefore there is moderately delayed gastric emptying. IMPRESSION: Moderately delayed gastric emptying. Electronically Signed by Alexander Goodman MD 09/28/2018 10:46 A
== END ==
LOC: M RAD 07:38
PROVIDERS: ATTEND Physician Assistant Medical
DX: R11.2 Nausea with vomiting, unspecified (principal); R68.81 Early satiety; K21.9 Gastro-esophageal reflux disease without esophagitis; K30 Functional dyspepsia

== ENCOUNTER 2018-10-07 13:03 | Day surgery (SDC) | payer OTHER ==
[~2018-10-07] VITALS: Ht 180.3 cm; Wt 77.1 kg
[~2018-10-07 13:03] MED LIST changes: +LIDOCAINE 2% INJ 100 MG/5 ML SDV (FOR ANES.) As Ordered ONE; +PROPOFOL 200 MG/20 ML VIAL As Ordered ONE
[2018-10-07] MEDS ORDERED: NS 1,000 ML IV ONE (14:45)
[2018-10-07] MEDS ORDERED: HumaLOG INSULIN (NovoLOG) PER UNIT As Ordered ONE (15:02)
[2018-10-07] MEDS ORDERED: HumaLOG INSULIN (NovoLOG) PER UNIT SC ONE (15:15)
[2018-10-07] MEDS ORDERED: SIMETHICONE 40MG/0.6ML DROPS 30ML As Ordered ONE (15:20)
[2018-10-07] MEDS ORDERED: LIDOCAINE 2% INJ 100 MG/5 ML SDV (FOR ANES.) As Ordered ONE (15:53)
[2018-10-07] MEDS ORDERED: PROPOFOL 200 MG/20 ML VIAL As Ordered ONE (15:53)
[2018-10-07] MEDS ORDERED: fentaNYL 100 MCG/2 ML INJECTION (J3010) As Ordered ONE (15:53)
[2018-10-07] MEDS ORDERED: METOCLOPRAMIDE INJ 10MG/2ML VIAL (J2765) As Ordered ONE (15:54)
--- NOTE | 2018-10-07 16:08 | ROOR ---
Patient Name: Panfilo García Procedure Date: 10/07/2018 2:52 PM Date of : 1980 Age: 38 Room: [facility] Gender: Male Note Status: Finalized Procedure: Upper GI endoscopy Indications: Heartburn, Gastroparesis, Nausea Providers: Dennis SERVIN MD Referring MD: Daniel CISSE MD Requesting Provider: Medicines: Monitored Anesthesia Care Complications: No immediate complications. Procedure: Pre-Anesthesia Assessment: - The heart rate, respiratory rate, oxygen saturations, blood pressure, adequacy of pulmonary ventilation, and response to care were monitored throughout the procedure. The Endoscope was introduced through the mouth, and advanced to the second part of duodenum. The upper GI endoscopy was accomplished without difficulty. The patient tolerated the procedure well. Findings: The esophagus was normal. The stomach was normal. (large, compliant stomach) The examined duodenum was normal. Impression: - Normal esophagus. - Normal stomach. - Normal examined duodenum. - No specimens collected. Recommendation: - Gastroparesis diet: - Eat smaller, more frequent meals throughout the day. - Low fat diet. - Liquid/soft foods are tolerated better than solid foods. - Low fiber/well cooked vegetables are tolerated better than high fiber/fibrous foods/raw vegetables. - Avoid medications that inhibit gastric/intestinal motility such as narcotic medications. - Observe patient's clinical course. - Return to referring physician as previously scheduled. Dennis Servin MD Dennis SERVIN MD 10/07/2018 4:08:03 PM This report has been signed electronically. Number of Addenda: 0 Note Initiated On: 10/07/2018 2:52 PM Estimated Blood Loss: Estimated blood loss: none.
[2018-10-07 17:17] VITALS: BP 108/69
== END 2018-10-07 17:25 | disposition home or self-care (01) ==
LOC: M OPP 13:03
PROVIDERS: ATTEND Internal Medicine Gastroenterology
DX: K31.84 Gastroparesis (principal); R12 Heartburn; R11.0 Nausea; E10.9 Type 1 diabetes mellitus without complications; Z79.4 Long term (current) use of insulin; Z79.899 Other long term (current) drug therapy; Z88.0 Allergy status to penicillin; Z88.1 Allergy status to other antibiotic agents; F17.210 Nicotine dependence, cigarettes, uncomplicated
CPT/HCPCS: 43235; J2765; J3010

== ENCOUNTER → 2018-10-21 | Outpatient (REF) | payer OTHER ==
[~2018-10-21] MED LIST changes: -LIDOCAINE 2% INJ 100 MG/5 ML SDV (FOR ANES.) As Ordered ONE; -PROPOFOL 200 MG/20 ML VIAL As Ordered ONE
[2018-10-21 14:03] LABS: ALBUMIN 3.6 GM/DL (3.2-5.2); BILIRUBIN,TOTAL 0.6 MG/DL (0.2-1.0); CREATININE FOR GFR 1.65 MG/DL (0.70-1.30); GLOMERULAR FILTRATION RATE 50.2 (>60); TOTAL PROTEIN 7.4 GM/DL (6.4-8.2)
[2018-10-21 14:11] LABS: EOS # 0.1 10^3/uL (0.0-0.50); EOS % 2.6 % (0.0-3.0); HEMOGLOBIN 11.3 g/dl (13.5-17.5); LYMPH # 1.2 10^3/uL (1.5-4.5); LYMPH % 30.4 % (24.0-44.0); MEAN CORPUSCULAR HEMOGLOBIN 28.5 pg (27.0-33.0); MEAN CORPUSCULAR HGB CONC 33.2 g/dl (32.0-36.5); MEAN CORPUSCULAR VOLUME 85.9 fl (80.0-96.0); MONO # 0.4 10^3/uL (0.0-0.8); MONO % 11.2 % (0.0-5.0); NEUTROPHILS # 2.1 10^3/uL (1.8-7.7); NEUTROPHILS % 54.8 % (36.0-66.0); PLATELET COUNT, AUTOMATED 202 10^3/uL (150-450); RED BLOOD COUNT 3.96 10^6/uL (4.30-6.10); WHITE BLOOD COUNT 3.9 10^3/uL (4.0-10.0)
[2018-10-21 14:33] LABS: HEMOGLOBIN A1c 8.5 %
== END ==
LOC: M LAB REF 12:37
PROVIDERS: ATTEND Family Medicine Addiction Medicine
DX: D64.89 Other specified anemias (principal); E11.42 Type 2 diabetes mellitus with diabetic polyneuropathy

== ENCOUNTER → 2018-11-07 | Outpatient (REF) | payer OTHER ==
[2018-11-07 12:52] LABS: ALBUMIN 3.5 GM/DL (3.2-5.2); BILIRUBIN,TOTAL 0.6 MG/DL (0.2-1.0); CALCIUM LEVEL 9.4 MG/DL (8.5-10.1); CREATININE FOR GFR 1.74 MG/DL (0.70-1.30); GLOMERULAR FILTRATION RATE 47.2 (>60); POTASSIUM SERUM 5.5 MEQ/L (3.5-5.1); TOTAL PROTEIN 7.3 GM/DL (6.4-8.2)
== END ==
LOC: M LAB REF 11:54
PROVIDERS: ATTEND Family Medicine Addiction Medicine
DX: E10.621 Type 1 diabetes mellitus with foot ulcer (principal)

== ENCOUNTER → 2019-02-21 | Outpatient (CLI) | payer OTHER ==
[~2019-02-21] MED LIST changes: -OMEP20CA3 PO; +OMEP20CA4 PO
== END ==
LOC: M LAB 07:45
PROVIDERS: ATTEND Internal Medicine Endocrinology, Diabetes & Metabolism
DX: E10.649 Type 1 diabetes mellitus with hypoglycemia without coma (principal)

== ENCOUNTER → 2019-04-14 | Outpatient (REF) | payer OTHER ==
[~2019-04-14] MED LIST changes: +OMEP1CAP73 PO; -OMEP20CA4 PO
[2019-04-14 13:30] LABS: RHEUMATOID FACTOR QUANT < 10.0 IU/ML (<15.0)
[2019-04-14 13:33] LABS: FOLATE 8.1 NG/ML; VITAMIN B12 LEVEL 347 PG/ML
[2019-04-19 13:18] LABS: ALBUMIN % 59.1 % (55.8-66.1); ALPHA-1-GLOBULIN % 3.2 % (2.9-4.9); ALPHA-2-GLOBULINS % 10.2 % (7.1-11.8); BETA-1-GLOBULINS % 5.2 % (4.7-7.2)
[2019-04-19 13:19] LABS: ALBUMIN 4.14 GM/DL (3.29-5.55); ALPHA-1-GLOBULINS 0.22 GM/DL (0.17-0.41); ALPHA-2-GLOBULINS 0.71 GM/DL (0.42-0.99); BETA-1-GLOBULINS 0.36 GM/DL (0.28-0.60); BETA-2-GLOBULINS 0.36 GM/DL (0.19-0.55); BETA-2-GLOBULINS % 5.2 % (3.2-6.5); GAMMA GLOBULIN % 17.1 % (11.1-18.8)
[2019-04-21 00:07] LABS: ANTI DOUBLE STRAND-DNA AB 2 IU/mL (0-9); ANTINUCLEAR ANTIBODIES DIRECT Positive (Negative); COPPER PLASMA 100 ug/dL (72-166); LEAD BLOOD ADULT <1 ug/dL (0-4); MERCURY LEVEL None Detected ug/L (0.0-14.9); RNP ANTIBODIES <0.2 AI (0.0-0.9); SJOGREN'S ANTI SS-A <0.2 AI (0.0-0.9); SJOGREN'S ANTI SS-B <0.2 AI (0.0-0.9); SMITH ANTIBODIES <0.2 AI (0.0-0.9); VITAMIN B1 LEVEL WHOLE BLOOD 87.4 nmol/L (66.5-200.0); VITAMIN B6,PYRIDOXAL PHOSPHATE 5.6 ug/L (5.3-46.7); VITAMIN E(ALPHA TOCOPHEROL) 8.2 mg/L (5.9-19.4); VITAMIN E(GAMMA TOCOPHEROL) 1.6 mg/L (0.7-4.9)
== END ==
LOC: M LABDRAW1 12:38
PROVIDERS: ATTEND Psychiatry & Neurology Neurology
DX: G62.9 Polyneuropathy, unspecified (principal)

== ENCOUNTER → 2019-05-24 | Outpatient (CLI) | payer OTHER ==
[~2019-05-24] MED LIST changes: -OMEP1CAP73 PO; +OMEP20CA4 PO
--- NOTE | 2019-05-24 14:01 | REP ---
ULTRASOUND LEFT NECK SOFT TISSUES: Real-time sonographic evaluation of the left knee soft tissues performed at the site of the palpable lump posteriorly. There is a slightly lobulated well circumscribed nodule at the site of the palpable lump measuring 1.2 x 0.8 x 0.8 cm. There is mild increased through transmission. There is no internal blood flow with Doppler evaluation. This may represent a complex cyst, possibly a complex sebaceous cyst. Alternatively, this could represent a hypovascular solid nodule. Electronically Signed by Alexander Goodman MD 05/24/2019 06:30 P
== END ==
LOC: M RAD 12:33
PROVIDERS: ATTEND Nurse Practitioner Family
DX: R22.1 Localized swelling, mass and lump, neck (principal)

== ENCOUNTER → 2019-08-01 | Outpatient (REF) | payer OTHER, MEDICAID ==
[~2019-08-01] MED LIST changes: +OMEP-172 PO; -OMEP20CA4 PO
[2019-08-01 14:20] LABS: BASO % 0.9 % (0.0-1.0); EOS # 0.1 10^3/uL (0.0-0.5); HEMATOCRIT 31.8 % (42.0-52.0); HEMOGLOBIN 10.2 g/dl (13.5-17.5); LYMPH # 1.7 10^3/uL (1.5-5.0); MEAN CORPUSCULAR HEMOGLOBIN 28.6 pg (27.0-33.0); MEAN CORPUSCULAR HGB CONC 32.1 g/dl (32.0-36.5); MEAN CORPUSCULAR VOLUME 89.1 fl (80.0-96.0); MONO # 0.4 10^3/uL (0.0-0.8); NEUTROPHILS # 1.2 10^3/uL (1.5-8.5); NEUTROPHILS % 35.1 % (36.0-66.0); PLATELET COUNT, AUTOMATED 175 10^3/uL (150-450); RED BLOOD COUNT 3.57 10^6/uL (4.30-6.10); WHITE BLOOD COUNT 3.5 10^3/uL (4.0-10.0)
[2019-08-01 14:29] LABS: FERRITIN 254 NG/ML (26-388); IRON (FE) 80 UG/DL (65-175)
[2019-08-01 14:35] LABS: VITAMIN B12 LEVEL 304 PG/ML (247-911)
== END ==
LOC: M LAB REF 13:32
PROVIDERS: ATTEND Nurse Practitioner Family
DX: D64.89 Other specified anemias (principal)

== ENCOUNTER → 2019-09-12 | Outpatient (CLI) | payer OTHER ==
[~2019-09-12] MED LIST changes: -OMEP-172 PO; +OMEP1CAP73 PO
--- NOTE | 2019-09-13 04:40 | REP ---
Clinical: Symptoms related to atherosclerotic disease including bilateral lower extremity ulceration. Technique: Real time goodman scale and color Doppler evaluation of the bilateral lower extremity arterial vasculature using linear high frequency transducer. Findings: Goodman scale and color images demonstrate mild to moderate amounts of atheromatous plaquing including heavily calcified vessels in the bilateral calves with areas of minimal narrowing but no focal stenosis identified. Doppler interrogation demonstrates normal velocities bilaterally. Peak systolic velocities (cm/sec) RIGHT LEFT Common femoral artery 102 (triphasic) 134 (triphasic) Profunda femoris 75 (triphasic) 103 (triphasic) SFA (proximal) 70 (triphasic) 117 (triphasic) SFA (mid) 90 (triphasic) 154 (triphasic) SFA (distal) 82 (triphasic) 141 (triphasic) Popliteal artery 78 (triphasic) 112 (triphasic) ANALI (prox.) 44 (triphasic) 45 (biphasic) Tibioperoneal trunk 69 (triphasic) 125 (triphasic) COMPLIANCE MANAGER (prox.) 68 (triphasic) 91 (monophasic) COMPLIANCE MANAGER (distal) 101 (triphasic) 98 (monophasic) ANALI (distal) 82 (triphasic) 96 (monophasic) Impression: Atheromatous changes with dense calcifications of the bilateral calves. No focal occlusion or stenosis noted. Electronically Signed by Austin Alves MD 09/13/2019 04:32 A
== END ==
LOC: M RAD 12:46
PROVIDERS: ATTEND Surgery
DX: L97.422 Non-pressure chronic ulcer of left heel and midfoot with fat layer exposed (principal); L97.412 Non-pressure chronic ulcer of right heel and midfoot with fat layer exposed

== ENCOUNTER 2019-09-15 17:46 | Inpatient (IN) | payer OTHER ==
[~2019-09-15] VITALS: Ht 180.3 cm; Wt 81.0 kg
[2019-09-15] MEDS ORDERED: ACETAMINOPHEN 325 MG TAB PO ONE (19:00)
[2019-09-15 19:32] LABS: BASO % 0.2 % (0.0-1.0); EOS % 0.2 % (0.0-3.0); HEMATOCRIT 25.1 % (42.0-52.0); HEMOGLOBIN 8.4 g/dl (13.5-17.5); LYMPH # 0.3 10^3/uL (1.5-5.0); LYMPH % 2.6 % (24.0-44.0); MEAN CORPUSCULAR HEMOGLOBIN 28.9 pg (27.0-33.0); MEAN CORPUSCULAR HGB CONC 33.5 g/dl (32.0-36.5); MEAN CORPUSCULAR VOLUME 86.3 fl (80.0-96.0); MONO # 1.2 10^3/uL (0.0-0.8); MONO % 10.2 % (0.0-5.0); NEUTROPHILS # 10.4 10^3/uL (1.5-8.5); NEUTROPHILS % 85.3 % (36.0-66.0); PLATELET COUNT, AUTOMATED 222 10^3/uL (150-450); RED BLOOD COUNT 2.91 10^6/uL (4.30-6.10); WHITE BLOOD COUNT 12.2 10^3/uL (4.0-10.0)
[2019-09-15 20:03] LABS: ERYTHROCYTE SEDIMENTATION RATE 93 mm/hr (0-15)
[2019-09-15] MEDS ORDERED: ONDANSETRON 4MG/2ML VIAL (J2405) IV ONE (21:00)
[2019-09-15] MEDS ORDERED: LYRI150C PO (21:06)
[2019-09-15] MEDS ORDERED: MIDO10TA PO (21:06)
[2019-09-15] MEDS ORDERED: DULO60CA35 PO (21:06)
[2019-09-15] MEDS ORDERED: ATOR1TAB21 PO (21:06)
[2019-09-15] MEDS ORDERED: APAP325T4 PO (21:07)
[2019-09-15] MEDS: MORPHINE 2 MG/ML 1ML VIAL (J2270) IV PRN ×2 (21:19→22:31)
--- NOTE | 2019-09-15 22:01 | REPVR ---
PROCEDURE INFORMATION: Exam: US Duplex Left Lower Extremity Veins, Limited Exam date and time: 09/15/2019 9:37 PM Age: 39 years old Clinical indication: Pain; Leg, upper; Left; Additional info: Dvt TECHNIQUE: Imaging protocol: Real-time Duplex ultrasound of the Left Lower Extremity with 2-D rivas scale, color Doppler flow and spectral waveform analysis with image documentation. Limited exam focused on the left lower extremity veins. COMPARISON: US Duplex, Ext,LOWER veins,unilat 06/28/2018 6:08 PM FINDINGS: Left deep veins: Unremarkable. The common femoral, femoral, proximal profunda femoral and popliteal veins are patent without thrombus. Normal Doppler waveforms. Normal compressibility and/or augmentation response. Left superficial veins: Unremarkable. Saphenofemoral junction is patent without thrombus. Soft tissues: Unremarkable. Lymph nodes: Enlarged left inguinal lymph nodes measure up to 3.6 x 1.5 x 2.4 cm with benign features. IMPRESSION: No DVT. Electronically signed by: Myke Joseph On 09/15/2019 22:02:16 PM
[2019-09-15] MEDS ORDERED: SODIUM CHLORIDE 0.9% 1000ML IV STA (22:20)
[2019-09-15] MEDS ORDERED: VANCOMYCIN HCL 1,000 MG, VIAL MATE ADAPTER 1 EACH in D5W 250 ML IV SCH (23:00)
--- NOTE | 2019-09-15 23:26 | HPEPDOC ---
[facility] Medical History & Physical Date of Admission Sep 15, 2019 Date of Service: Sep 15, [address] Abraham, podiatry Attending Physician: JUANITO FROST MD History and Physical CHIEF COMPLAINT: Left lower extremity pain HISTORY OF PRESENT ILLNESS: is a 39-year-old male with history of type 1 diabetes, diabetic neuropathy, recurrent left leg and foot infections with previous osteomyelitis s/p transmetatarsal amputation, who presented to the emergency department with progressive swelling, redness, and pain of his left lower extremity over the past week. Beginning Wednesday (09/11), patient developed low-grade fevers and chills along with the LLE pain, edema, and erythema. All of his symptoms progressively worsened as the week wore on. He underwent an arterial ultrasound 3 days ago that was unremarkable and then was subsequently seen this afternoon by Dr. Abraham of podiatry who has cared for him in the past. Dr. Abraham instructed him to present to the emergency department for admission and further treatment. In the ED, patient described his LLE pain as shooting and stabbing, radiating both up and down the entire leg. He also endorsed nausea, acute headache with moderate sensitivity to light, and a painful swollen left inguinal lymph node. He denied confusion, abdominal pain, vomiting, chest pain, shortness of breath, dysuria, hematuria, Patient was found to be febrile and tachycardic, with initial labs showing leukocytosis, elevated inflammatory markers, elevated creatinine, and hyperglycemia. Left lower extremity ultrasound showed enlarged lymph nodes with benign features and no DVT. Patient's lamar Willis was present throughout exam and contributed at times to history. REVIEW OF SYSTEMS: 12 point review of systems negative except as listed in HPI PAST MEDICAL HISTORY: Type 1 diabetes mellitus Diabetic neuropathy History of osteomyelitis History of anemia Hypertension Orthostatic hypotension GERD Grade I diastolic dysfunction PAST SURGICAL HISTORY: Left transmetatarsal amputation, 03/2018 Open reduction, internal fixation of left medial malleolus Right knee debridement Left foot debridement Left hallux amputation Left fourth toe biopsy Left first toe biopsy Multiple incision and drainage procedures on left foot SOCIAL HISTORY: Engaged, with 13-year-old son. Currently on disability due to left lower extremity related issues and was formerly a [employer]. History of using chewing tobacco but denies smoking tobacco. Denies alcohol or illicit drug use. FAMILY HISTORY: Patient has 1 brother and 2 sisters History is otherwise noncontributory ALLERGIES: Please see below. HOME MEDICATIONS: Please see below. PHYSICAL EXAMINATION: VITAL SIGNS: Please see below GENERAL APPEARANCE: Appears to be in moderate discomfort while lying in bed with visible shakes. Alert and oriented 3. HEENT: Normocephalic, atraumatic. No conjunctival pallor. No pharyngeal erythema or exudate. No palpable cervical or supraclavicular lymph nodes appreciated. Trachea is midline. CARDIOVASCULAR: Tachycardic rate, regular rhythm. S1, S2 auscultated. No murmurs or rubs appreciated. LUNGS: Clear to auscultation, anteriorly and posteriorly with no appreciated wheezes, crackles or rhonchi. Breathing on room air. ABDOMEN: Soft, nontender, nondistended. Normoactive bowel sounds present. Insulin pump attached to left flank with accompanying sensor device on LUE. MUSCULOSKELETAL: 5/5 muscle strength of b/l upper and lower extremities EXTREMITIES: 2+ radial and popliteal pulses b/l. Moderate erythema of the distal left lower extremity with associated swelling and warmth, with no appreciable odor. Approximate 4 cm diameter ulcer present on the lateral aspect of the distal left lower extremity just superior to the lateral malleolus with yellow- colored exudate. Skin around the area of ulceration is taut, warm, and edematous. There are well-healed scars on both the medial and lateral aspects of the left foot with well-healed skin overlying metatarsal amputation. There is also palpable left inguinal lymphadenopathy present. LLE calf tenderness. NEUROLOGICAL: Awake, alert and oriented 3. No focal neurological deficits appreciated. Non-dysarthric speech. Responds appropriate to questions and commands. Numbness to light touch on the dorsal aspect of both feet with diminished sensation over the medial aspect of the left lower extremity. PSYCHIATRIC: Mood and affect appear appropriate LABORATORY DATA: Please see below. IMAGING: Duplex unilateral (left) lower extremity ultrasound, 09/15/19: No DVT. Enlarged left inguinal lymph nodes measuring up to 3.6, X1.5 packs 2.4 cm with benign features. MICROBIOLOGY: Please see below. ASSESSMENT & PLAN: Patient is a 39-year-old male with history of type 1 diabetes, diabetic neuro rolf, osteomyelitis, recurrent left lower extremity wounds, status post transmetatarsal amputation who presented with swelling, redness, and pain of the left lower extremity who is admitted for management of sepsis 2/2 left lower extremity cellulitis/abscess. #Sepsis -Positive SIRS (T101.8, HR 119, WBC 12.2) with infection of left lower extremity -Aggressive IV fluid hydration ordered stat, with maintenance fluids to follow -IV vancomycin and clindamycin ordered; pt has allergy to cephalosporins and penicillins -ABG and lactic acid level ordered -Two sets of blood cultures pending -Monitor urine output and strict I & O #LLE cellulitis/abscess -Podiatry and infectious disease consults placed -Previous history of osteomyelitis -Wound culture of ulcer ordered -Leukocytosis with ESR and CRP elevated -Due to past ORIF, pt does have hardware in LLE -Per ED who spoke with podiatry, no advanced imaging at this time -Per ED, pt has never grown MRSA, and has grown enterococcus -LLE U/S showed no DVT with benign appearing left inguinal enlarged lymph nodes #DMI, complicated by neuropathy -Initial Anion Gap 12 -Initial ABG was not acidotic (appeared borderline alkalotic) -Serum glucose measurements have been trending down since presentation -continue with pt's home insulin pump -FSBS q6h with strict I & O -Pt reports no recent changes in insulin regimen and has been taking meds as pre scribed #Acute Kidney Injury -Cr 2.2; baseline appears to be 1-1.2 -IVF ordered -Renal ultrasound ordered -Urine Na and Cr ordered to calculate FENa to determine specificity of renal failure -Strict I&O #Normocytic normochromic anemia -Hgb 8.4; on review, baseline appears to be around 9 -Documented history of anemia with need for transfusion on a prior hospitalization -Factor of bone marrow suppression due to acute illness -home Fe medication held -morning CBC ordered #Pseudohyponatremia -Initial sodium 132 -Calculated serum osmole of 293 -With sNa less than 135, and sOsm between 280 and 295, this indicates pseudohyponatremia -Likely due to high sGlu pulling water and Na #Chronic Hypertension and History of orthostatic hypotension ? -Pt has been hypotensive, so home Carvedilol held -continue home midodrine continued #GERD -home protonix continued #DVT prophylaxis: Lovenox SC DISPOSITION: Anticipated more than 2 midnight stays Vital Signs Vital Signs Date Time Temp Pulse Resp B/P (MAP) Pulse Ox O2 Delivery O2 Flow Rate FiO2 09/15/19 22:31 18 100 09/15/19 22:30 101.8 119 92/46 (61) 09/15/19 17:46 Room Air Laboratory Data Labs 24H Laboratory Tests 2 09/15/19 19:09: Immature Granulocyte % (Auto) 1.5, Neutrophils (%) (Auto) 85.3H, Lymphocytes (%) (Auto) 2.6L, Monocytes (%) (Auto) 10.2H, Eosinophils (%) (Auto) 0.2, Basophils (%) (Auto) 0.2, Neutrophils # (Auto) 10.4H, Lymphocytes # (Auto) 0.3L, Monocytes # (Auto) 1.2H, Eosinophils # (Auto) 0.0, Basophils # (Auto) 0.0, Nucleated Red Blood Cells % (auto) 0.0, Erythrocyte Sedimentation Rate 93H, C-Reactive Protein, Quantitative 29.20H 09/15/19 19:21: POC Glucose (Misc Panel) 357H, POC Sodium (Misc Panel) 132L, POC Potassium (Misc Panel) 4.3, POC Chloride (Misc Panel) 97L, POC Total CO2 (Misc Panel) 23.0, POC Blood Urea Nitrogen (Misc Panel 25, POC Ionized Calcium (Misc Panel) 4.8, POC Creatinine (Misc Panel) 2.2H, POC Hematocrit (Misc Panel) 28.0L 09/15/19 21:14: Bedside Glucose (Misc Panel) 347H 09/15/19 22:34: Bedside Glucose (Misc Panel) 316H 09/15/19 23:12: CBC/BMP Laboratory Tests 09/15/19 19:09 Microbiology Microbiology 09/15/19 Blood Culture, Received Pending 09/15/19 Blood Culture, Received Pending Home Medications Scheduled Atorvastatin Calcium (Atorvastatin Calcium) 20 Mg Tablet, 20 MG PO QPM TAKES AT DINNERTIME Carvedilol (Carvedilol) 25 Mg Tab, 12.5 MG PO BID Docusate Sodium (Colace) 100 Mg Cap, 100 MG PO BID Duloxetine HCl (Duloxetine HCl) 60 Mg Capsule.dr, 60 MG PO QPM TAKES AT DINNERTIME Ferrous Sulfate (Ferrous Sulfate) 325 Mg Tab, 325 MG PO Q2D Insulin Lispro (Admelog Solostar) 100 Unit/Ml Inj, 1 DOSE SC AC PER INSULIN PUMP Linezolid (Linezolid) 600 Mg Tablet, 600 MG PO BID Midodrine HCl (Midodrine HCl) 10 Mg Tablet, 10 MG PO BID TAKES MORNING AND DINNERTIME Pantoprazole Sodium (Pantoprazole Sodium) 40 Mg Tab, 40 MG PO DAILY Polyethylene Glycol 3350 (Miralax) 1 Pow Pow, 17 GRAM PO DAILY for constipation Pregabalin (Lyrica) 150 Mg Capsule, 150 MG PO BID Scheduled PRN Acetaminophen (Acetaminophen) 325 Mg Tablet, 325 MG PO Q6H PRN for PAIN Hydrocodone/Acetaminophen (Hydrocodone-Acetamin 5-325 mg) 1 Tab Tab, 1 TAB PO BID PRN for PAIN Allergies Coded Allergies: Cephalosporins (Verified Allergy, Severe, SOB, 12/13/18) Penicillins (Verified Allergy, Intermediate, JOINTS SWELL, Rash, 12/13/18) A-FIB/CHADSVASC A-FIB History Current/History of A-Fib/PAF?: No Current PO Anticoag Therapy: No GME ATTESTATION GME ATTESTATION My faculty preceptor for this patient encounter was physically present during the encounter and was fully available. All aspects of the patient interview, examination, medical decision making process, and medical care plan development were reviewed and approved by the faculty preceptor. The faculty preceptor is aware and concurs with the plan as stated in the body of this note and will attest to such by his/her cosignature. ATTENDING NOTE I examined the patient on Sep 15 Mr. García is a 39 yr old M w a PMH of DM1 w neuropathy ED and gastroperesis, hx of osteo requiring left foot transmetatarsal amputation, & HTN admitted for sepsis 2/2 left cellulitis. We will f/u w in the morning prior to ordering advanced imaging. The day time team may consider ID consult for assistance w abx. For the acute anemia 2/2 sepsis 1 unit of PRCS was ordered this AM. MALINI GRANGER D.O. Sep 15, 2019 23:26 JUANITO FROST MD Sep 16, 2019 02:43
[2019-09-15] MEDS ORDERED: DEXTROSE 50% 50 ML SYRINGE IV PRN (23:45)
[2019-09-15] MEDS ORDERED: GLUCOSE 4 GM CHEW TABLET PO PRN (23:45)
[2019-09-15] MEDS ORDERED: GLUCAGON FOR INJ 1 MG VIAL (J1610) SC PRN (23:45)
[2019-09-16] VITALS (13 sets, daily range): BP systolic 85–125; BP diastolic 49–70
[2019-09-16] MEDS ORDERED: traMADol ER 100MG TABLET (ULTRAM ER) PO ONE
[2019-09-16] MEDS: CLINDAMYCIN 600 MG in IV 1 EA IV SCH ×2 (00:01→06:21)
[2019-09-16] MEDS ORDERED: VANCOMYCIN HCL 750 MG, VIAL MATE ADAPTER 1 EACH in D5W 250 ML IV SCH (01:00)
[2019-09-16] MEDS: ACETAMINOPHEN 500 MG TAB PO PRN ×2 (01:22→10:13)
[2019-09-16] MEDS: ATORVASTATIN 20 MG TAB PO SCH ×2 (01:23→20:07)
[2019-09-16] MEDS: DOCUSATE SODIUM 100 MG CAP PO SCH ×3 (01:23→20:06)
[2019-09-16] MEDS ORDERED: VANCOMYCIN HCL 1,000 MG, VIAL MATE ADAPTER 1 EACH in D5W 250 ML IV ONE (02:00)
[2019-09-16] MEDS ORDERED: VANCOMYCIN HCL 750 MG, VIAL MATE ADAPTER 1 EACH in D5W 250 ML IV ONE (03:00)
[2019-09-16] MEDS: NS 1,000 ML IV SCH ×4 (03:03→23:24)
[2019-09-16] MEDS ORDERED: PERCOCET 5MG/325MG TAB PO ONE ×2 (05:00→11:00)
[2019-09-16 05:43] LABS: MEAN CORPUSCULAR HEMOGLOBIN 28.6 pg (27.0-33.0); MEAN CORPUSCULAR HGB CONC 32.7 g/dl (32.0-36.5); MEAN CORPUSCULAR VOLUME 87.4 fl (80.0-96.0); PLATELET COUNT, AUTOMATED 184 10^3/uL (150-450); RED BLOOD COUNT 2.31 10^6/uL (4.30-6.10); WHITE BLOOD COUNT 12.9 10^3/uL (4.0-10.0)
[2019-09-16 05:55] LABS: HEMOGLOBIN 6.6 g/dl (13.5-17.5)
[2019-09-16 05:56] LABS: HEMATOCRIT 20.2 % (42.0-52.0)
[2019-09-16 06:00] LABS: CALCIUM LEVEL 7.7 MG/DL (8.5-10.1); CREATININE FOR GFR 2.58 MG/DL (0.70-1.30); GLOMERULAR FILTRATION RATE 29.8 (>60); POTASSIUM SERUM 4.8 MEQ/L (3.5-5.1)
--- NOTE | 2019-09-16 07:10 | PHACANCOPD ---
PHARMACY VANCOMYCIN DOSING Pt Demographics Demographics Patient Age:39 , Weight:78.600 , Gender: male Adjusted Body Weight Date: 09/16/19, Adjusted Body Weight: Kg Events Past 24 Hours Events Past 24 Hours: YES: Fever, Elevation in WBC; NO: Dialysis, Diuretic Therapy, Change in CrCl, Pending Diagnostics, Pending Procedures, Other Vancomycin Vancomycin Target Ranges: 15-20 mcg/ml Vancomycin Load Y/N: Yes Load Dose Date Time Vancomycin Load Dose: 1750mg Date: 09/16/19 Time:0200 Vancomycin Dose Date: 09/16/19. Current Vancomycin Dose: [ 1 gram Q24H ] Intermittent Dosing?: No Labs Labs Vital Signs Label Value Date Time Patient Temperature 99.0 degrees F 09/16/19 0600 Temperature Source Oral 09/16/19 0600 Patient Temperature 100.0 degrees F 09/16/19 0400 Temperature Source Oral 09/16/19 0400 Patient Temperature 100.3 degrees F 09/16/19 0300 Temperature Source Oral 09/16/19 0300 Patient Temperature 101.8 degrees F 09/15/19 2045 Temperature Source Oral 09/15/19 2045 Pulse 122 09/15/19 2000 Pulse 117 09/15/19 2045 Pulse 118 09/15/19 2115 Pulse 119 09/15/19 2200 Pulse 121 09/15/19 2345 Pulse 121 09/16/19 0200 Blood Pressure Assessment 92/50 (64) 09/16/19 0600 Blood Pressure Assessment 98/56 (70) 09/16/19 0400 Blood Pressure Assessment 88/56 (67) 09/16/19 0300 Item Value Date Time White Blood Count 12.2 10^3/uL H 09/15/19 1909 White Blood Count 12.9 10^3/uL H 09/16/19 0522 Creatinine 2.58 MG/DL H 09/16/19 0522 POC Creatinine (Misc Panel) 2.2 MG/DL H 09/15/19 1921 Micro Microbiology 09/16/19 Wound Culture, Received Pending 09/15/19 Blood Culture, Received Pending 09/15/19 Blood Culture, Received Pending Creatinine Clearance Date:09/16/19. Creatinine Clearance: [ 48.5 mL/min ]. Assessment and Plan Maintaining Current Dose?: Yes Reason for dose change: No Dose Change Pharmacist Note Pharmacist Note Date: 09/16/19. Pharmacist note: Mr. García is a 39-year-old male who was referred to the emergency department for a left foot cellulitis. Upon admission to [facility] he was found to be septic with an elevated WBC, temperature, and heart rate. He is a type 1 diabetic with a baseline creatinine of about 1.1. His current creatinine indicates a possible incident of HANK. He was placed on antibiotic therapy consisting of clindamycin and vancomycin. A vancomycin [place] 1750mg was ordered with a subsequent maintenance dose of 1 gram every 24 hours. The goal trough for his vancomycin is 15-20 mcg/dL. We will continue to monitor and make adjustments as needed. [facility] Sep 16, 2019 07:10
[2019-09-16] MEDS ORDERED: HumaLOG INSULIN (NovoLOG) PER UNIT SC SCH ×3 (07:30→21:00)
--- NOTE | 2019-09-16 07:42 | REPVR ---
PROCEDURE INFORMATION: Exam: US Retroperitoneal Limited, Kidneys Exam date and time: 09/16/2019 7:14 AM Age: 39 years old Clinical indication: Abnormal findings; Abnormal lab test; Abnormal kidney function lab tests; Additional info: Jose G TECHNIQUE: Imaging protocol: Real-time ultrasound of the retroperitoneum with image documentation. Examination was focused on the kidneys. COMPARISON: RENAL US 12/15/2017 4:05 PM FINDINGS: Right kidney: The right kidney measures 12.2 x 6.5 x 5.1 centimetres. There is no right renal mass, stone, cyst or hydronephrosis. Trace amount of fluid seen adjacent to the inferior pole of the right kidney. Left kidney: The left kidney measures 11.6 x 5.7 x 6.8 cm. There is no left renal mass, stone, cyst or hydronephrosis. Bladder: The urinary bladder is collapsed containing Jeffery catheter balloon. IMPRESSION: 1. Unremarkable ultrasound of the right and left kidneys. 2. Non-specific trace fluid adjacent to the inferior pole of the right kidney. 3. Collapsed urinary bladder containing Jeffery catheter balloon. Electronically signed by: Ck Arteaga On 09/16/2019 07:44:33 AM
[2019-09-16 08:15] LABS: PERCENT SATURATION 6.7 % (19.7-50.0)
[2019-09-16] MEDS ORDERED: MORPHINE 4 MG/ML 1ML VIAL/SYRINGE (J2270) As Ordered ONE (09:44)
[2019-09-16] MEDS ORDERED: MORPHINE 4 MG/ML 1ML VIAL/SYRINGE (J2270) IV ONE (10:00)
[2019-09-16] MEDS: PANTOPRAZOLE 40MG TAB (PROTONIX) PO SCH (10:13)
[2019-09-16] MEDS: PERCOCET 5MG/325MG TAB PO PRN ×3 (10:13→21:28)
[2019-09-16] MEDS: MIDODRINE 5 MG TAB PO SCH ×2 (10:13→16:57)
[2019-09-16] MEDS: MIRALAX *UNIT DOSE* 17GM PACKET PO SCH (10:14)
[2019-09-16] MEDS ORDERED: NS 1,000 ML IV ONE (11:00)
--- NOTE | 2019-09-16 14:10 | IPN ---
DATE OF ADMISSION: 09/15/2019 Patient seen and examined at bedside. He was admitted from my office yesterday. Today he looks unwell. He is actively shaking on examination. Maximum temperature (T-max) is 102.4. Labs are reviewed. White blood cell count is 12.9., hemoglobin is 6.6. Erythrocyte sedimentation rate is 93. CRP is 29.2. Vascular ultrasound showed no blood count. LOWER EXTREMITY EXAMINATION: There is significant erythema and edema surrounding the left leg ulceration, which is at the lateral aspect of the calf. His dressing is fully saturated with purulent drainage. ASSESSMENT: Diabetic male with abscess sepsis stemming from left leg ulceration. PLAN: A bedside incision and drainage performed. The area was painted with Betadine solution. Using a #15 blade, an incision was made along the wound and slightly inferior towards the ankle. A significant amount of purulent drainage was expressed. Culture swab was taken. Drainage appeared to be tracking along the perineal tendons. Should continue current antibiotics. Start Vashe dressing changes. Pain medications ordered. Will monitor. If there is still significant purulent drainage tomorrow morning, will plan on taking him to the operating room.
[2019-09-16 14:43] LABS: HEMATOCRIT 23.1 % (42.0-52.0); HEMOGLOBIN 7.3 g/dl (13.5-17.5)
[2019-09-16] MEDS: FERROUS SULFATE 325MG TAB PO SCH ×2 (15:19→20:07)
[2019-09-16] MEDS: MEROPENEM INJ 1 GM in IV 1 EA IV SCH (15:19)
[2019-09-16] MEDS ORDERED: ONDANSETRON 4MG/2ML VIAL (J2405) As Ordered ONE (16:55)
[2019-09-16] MEDS ORDERED: ONDANSETRON 4MG/2ML VIAL (J2405) IV PRN (17:00)
[2019-09-16] MEDS: HumaLOG INSULIN (NovoLOG) PER UNIT SC SCH ×2 (17:26→20:06)
--- NOTE | 2019-09-16 23:07 | IPNPDOC ---
Date Seen The patient was seen on 09/16/19. Progress Note SUBJECTIVE: 39 y.o male w/ PMH of DM, Gastroparesis, Osteomyelitis s/p partial L foot amputation & HTN is admitted for LLE cellulitis with abscess. He underwent bedside I&D by Podiatry today. He appears to be in a considerable amount of discomfort & febrile in the morning. He has received percocet/morphine without resolution of pain. Apart from LLE pain & chills, he has no other complaints at this time. He denies any SOB, CP, N/V/D or abdominal pain. 10 point review of system is negative except for above. PHYSICAL EXAMINATION: VITAL SIGNS: Please see below. GENERAL: No distress HEENT: Normocephalic, atraumatic, moist mucous membranes NECK: Supple CARDIOVASCULAR EXAMINATION: S1, S2, no murmurs RESPIRATORY EXAMINATION: Clear to auscultation, no wheezing ABDOMINAL EXAMINATION: Soft, nontender, nondistended, positive bowel sounds EXTREMITIES: L foot w/ partial amputation, L supramalleolar region w/ wound (s/p I&D), clean and dry dressing in place. SKIN: No rash NEUROLOGICAL EXAMINATION: Alert and oriented 3, no focal deficits PSYCHIATRIC EXAMINATION: Calm and cooperative LABORATORY DATA, IMAGING STUDIES, MICROBIOLOGY: Please see below. ASSESSMENT AND PLAN: 39 y.o male w/ PMH of DM, Gastroparesis, Osteomyelitis s/p partial L foot amputation & HTN is admitted for LLE cellulitis with abscess PROBLEMS: 1. Cellulitis w/ abscess - s/p bedside I&D, further drainage/debridement as per Podiatry, continue Vancomycin, switched Clindamycin to Merrem, cultures pending. Continue IV fluids & pain control w/ Percocet/Dilaudid as needed. 2. DM - continue patient's home insulin pump with sliding scale coverage if BS >250. 3. HTN - low BP, likely from infection/fever, hold Coreg for now. 4. GERD - continue Protonix DVT Prophylaxis - Heparin SubQ GI Prophylaxis - PPI VS, I&O, 24H, Fishbone Vital Signs/I&O Vital Signs Date Time Temp Pulse Resp B/P (MAP) Pulse Ox O2 Delivery O2 Flow Rate FiO2 09/16/19 21:58 18 09/16/19 20:00 98.5 99 116/70 (85) 93 Room Air 09/16/19 06:00 1.0 I&O- Last 24 Hours up to 6 AM 09/16/19 05:59 Intake Total 1955 ml Output Total 0 ml Balance 1955 ml Laboratory Data 24H LABS Laboratory Tests 2 09/15/19 23:12: Lactic Acid Level 1.7 09/15/19 23:50: POC pH (Misc Panel) 7.431, POC Base Excess (Misc Panel) -3.0L, POC Saturated Percent O2 (Misc) 95, POC pO2 (Misc Panel) 70.0L, POC pCO2 (Misc Panel) 32.0L, POC HCO3 (Misc Panel) 21.3L, POC Total CO2 (Misc Panel) 22.0L 09/16/19 01:29: Bedside Glucose (Misc Panel) 209H 09/16/19 03:48: Urine Color GEO, Urine Appearance CLOUDYH, Urine pH 5.0, Urine Specific Gravit y 1.023, Urine Protein NEGATIVE, Urine Glucose (UA) 1+H, Urine Ketones NEGATIVE, Urine Blood NEGATIVE, Urine Nitrite NEGATIVE, Urine Bilirubin NEGATIVE, Urine Urobilinogen 2.0H, Urine Leukocyte Esterase NEGATIVE, Urine WBC (Auto) 3, Urine RBC (Auto) 4H, Urine Hyaline Casts (Auto) 5, Urine Bacteria (Auto) NEGATIVE, Urine Squamous Epithelial Cells 0, Urine Amorphous Sediment SMALLH, Urine Sperm (Auto) , Urine Random Creatinine 272.0, Urine Random Sodium 18 09/16/19 05:22: Nucleated Red Blood Cells % (auto) 0.0, Anion Gap 6L, Glomerular Filtration Rate 29.8L, Calcium Level 7.7L 09/16/19 07:33: Iron Level 8L, Total Iron Binding Capacity 120L, Transferrin % Saturation 6.7L, Ferritin 526H 09/16/19 11:28: Bedside Glucose (Misc Panel) 130H CBC/BMP Laboratory Tests 09/16/19 05:22 09/16/19 14:31 Microbiology Microbiology 09/16/19 Wound Culture, Received Pending 09/16/19 Wound Culture, Received Pending 09/15/19 Blood Culture - Preliminary, Resulted No growth after 24 hours . All specim... 09/15/19 Blood Culture - Preliminary, Resulted No growth after 24 hours . All specim... JR JOHNSON MD Sep 16, 2019 23:07
[2019-09-16] MEDS: HEPARIN SOD (PORCINE) 5000 UNITS/ML VIAL (J1644 PER 1000UNITS) SQ SCH (23:23)
[2019-09-17] VITALS (7 sets, daily range): BP systolic 127–187; BP diastolic 68–94
[2019-09-17] MEDS: MEROPENEM INJ 1 GM in IV 1 EA IV SCH ×2 (00:47→13:45)
[2019-09-17] MEDS ORDERED: VANCOMYCIN HCL 1,000 MG, VIAL MATE ADAPTER 1 EACH in D5W 250 ML IV SCH (02:00)
[2019-09-17] MEDS: PERCOCET 5MG/325MG TAB PO PRN ×5 (02:14→21:37)
[2019-09-17] MEDS: HEPARIN SOD (PORCINE) 5000 UNITS/ML VIAL (J1644 PER 1000UNITS) SQ SCH ×3 (05:07→21:39)
[2019-09-17 05:22] LABS: HEMATOCRIT 23.4 % (42.0-52.0); HEMOGLOBIN 7.4 g/dl (13.5-17.5); MEAN CORPUSCULAR HEMOGLOBIN 28.1 pg (27.0-33.0); MEAN CORPUSCULAR HGB CONC 31.6 g/dl (32.0-36.5); PLATELET COUNT, AUTOMATED 214 10^3/uL (150-450); RED BLOOD COUNT 2.63 10^6/uL (4.30-6.10); WHITE BLOOD COUNT 12.9 10^3/uL (4.0-10.0)
[2019-09-17 05:44] LABS: ALBUMIN 2.3 GM/DL (3.2-5.2); BILIRUBIN,TOTAL 1.3 MG/DL (0.2-1.0); CREATININE FOR GFR 1.85 MG/DL (0.70-1.30); GLOMERULAR FILTRATION RATE 43.8 (>60); MAGNESIUM LEVEL 1.6 MG/DL (1.8-2.4); POTASSIUM SERUM 4.7 MEQ/L (3.5-5.1); TOTAL PROTEIN 5.3 GM/DL (6.4-8.2)
[2019-09-17] MEDS: HumaLOG INSULIN (NovoLOG) PER UNIT SC SCH ×4 (07:30→21:00)
[2019-09-17] MEDS: FERROUS SULFATE 325MG TAB PO SCH ×2 (07:55→21:38)
[2019-09-17] MEDS: PANTOPRAZOLE 40MG TAB (PROTONIX) PO SCH (07:56)
[2019-09-17] MEDS: MIRALAX *UNIT DOSE* 17GM PACKET PO SCH (07:56)
[2019-09-17] MEDS: DOCUSATE SODIUM 100 MG CAP PO SCH ×2 (07:56→21:38)
[2019-09-17] MEDS: NS 1,000 ML IV SCH ×2 (07:58→13:45)
[2019-09-17] MEDS: MIDODRINE 5 MG TAB PO SCH (09:00)
[2019-09-17] MEDS ORDERED: FERROUS SULFATE 325MG TAB PO SCH (09:00)
[2019-09-17] MEDS: MAG SULF 1GM/100ML (MAG RUN) 1 GM in IV 1 EA IV SCH ×2 (09:48→11:59)
[2019-09-17] MEDS ORDERED: BUPIVACAINE HCL 0.5% 10 ML VIAL As Ordered ONE (09:59)
[2019-09-17] MEDS ORDERED: LIDOCAINE 1% MDV 20ML VIAL As Ordered ONE (09:59)
[2019-09-17] MEDS ORDERED: MIDAZOLAM INJ 2 MG/2 ML VIAL (J2250) As Ordered ONE (10:12)
[2019-09-17] MEDS ORDERED: fentaNYL 100 MCG/2 ML INJECTION (J3010) As Ordered ONE (10:13)
[2019-09-17] MEDS ORDERED: propofoL 200 MG/20 ML VIAL As Ordered ONE (10:14)
[2019-09-17] MEDS ORDERED: LIDOCAINE 2% INJ 100 MG/5 ML SDV (FOR ANES.) As Ordered ONE (10:15)
[2019-09-17] MEDS ORDERED: PERCOCET 5MG/325MG TAB PO PRN (11:30)
[2019-09-17] MEDS ORDERED: ONDANSETRON 4MG/2ML VIAL (J2405) IV PRN (11:30)
[2019-09-17] MEDS ORDERED: NS 1,000 ML IV SCH (11:30)
[2019-09-17] MEDS ORDERED: fentaNYL 100 MCG/2 ML INJECTION (J3010) IV PRN (11:30)
[2019-09-17] MEDS ORDERED: METOCLOPRAMIDE INJ 10MG/2ML VIAL (J2765) IV PRN (11:30)
[2019-09-17] MEDS: VANCOMYCIN HCL 1,000 MG, VIAL MATE ADAPTER 1 EACH in D5W 250 ML IV SCH (15:27)
--- NOTE | 2019-09-17 19:48 | IPNPDOC ---
Date Seen The patient was seen on 09/17/19. Progress Note SUBJECTIVE: 39 y.o male w/ PMH of DM, Gastroparesis, Osteomyelitis s/p partial L foot amputation & HTN is admitted for LLE cellulitis with abscess. He underwent bedside I&D by Podiatry today. He appears to be in a considerable amount of discomfort & febrile in the morning. He has received percocet/morphine without resolution of pain. Apart from LLE pain & chills, he has no other complaints at this time. He denies any SOB, CP, N/V/D or abdominal pain. 09/17/19 Patient seen in the morning, having mild ankle pain, otherwise, uneventful night, no complaints at this time. Patient evaluated by podiatry and scheduled to undergo another I&D in the OR today. 10 point review of system is negative except for above. PHYSICAL EXAMINATION: VITAL SIGNS: Please see below. GENERAL: No distress HEENT: Normocephalic, atraumatic, moist mucous membranes NECK: Supple CARDIOVASCULAR EXAMINATION: S1, S2, no murmurs RESPIRATORY EXAMINATION: Clear to auscultation, no wheezing ABDOMINAL EXAMINATION: Soft, nontender, nondistended, positive bowel sounds EXTREMITIES: L foot w/ partial amputation, L supramalleolar region w/ an open wound, continues to have pus drainage. SKIN: No rash NEUROLOGICAL EXAMINATION: Alert and oriented 3, no focal deficits PSYCHIATRIC EXAMINATION: Calm and cooperative LABORATORY DATA, IMAGING STUDIES, MICROBIOLOGY: Please see below. ASSESSMENT AND PLAN: 39 y.o male w/ PMH of DM, Gastroparesis, Osteomyelitis s/p partial L foot amputation & HTN is admitted for LLE cellulitis with abscess PROBLEMS: 1. Cellulitis w/ abscess - s/p bedside I&D, repeat I&D in the OR later today by Podiatry, continue Vancomycin and Merrem, cultures pending. 2. DM - continue patient's home insulin pump with sliding scale coverage if BS >250. 3. Acute kidney injury - improved with IV fluids, creatinine close to baseline, we'll monitor. 4. HTN - BP elevated today, midodrine discontinued, will monitor and start home Coreg if BP remains elevated. 5. GERD - continue Protonix DVT Prophylaxis - Heparin SubQ GI Prophylaxis - PPI VS, I&O, 24H, Fishbone Vital Signs/I&O Vital Signs Date Time Temp Pulse Resp B/P (MAP) Pulse Ox O2 Delivery O2 Flow Rate FiO2 09/17/19 18:28 18 09/17/19 16:00 98.8 104 157/81 (106) 93 Room Air 09/16/19 06:00 1.0 I&O- Last 24 Hours up to 6 AM 09/17/19 06:00 Intake Total 3930 ml Output Total 3545 ml Balance 385 ml Laboratory Data 24H LABS Laboratory Tests 2 09/16/19 23:36: Bedside Glucose (Misc Panel) 263H 09/17/19 05:05: Nucleated Red Blood Cells % (auto) 0.0, Anion Gap 7L, Glomerular Filtration Rate 43.8L, Calcium Level 8.0L, Phosphorus Level 3.0, Magnesium Level 1.6L, Total Bilirubin 1.3H, Aspartate Amino Transf (AST/SGOT) 34, Alanine Aminotransferase (ALT/SGPT) 29, Alkaline Phosphatase 103, Total Protein 5.3L, Albumin 2.3L, Albumin/Globulin Ratio 0.77L 09/17/19 05:11: Bedside Glucose (Misc Panel) 236H 09/17/19 11:18: Bedside Glucose (Misc Panel) 199H 09/17/19 14:09: Random Vancomycin Level 13.8 09/17/19 16:52: Bedside Glucose (Misc Panel) 280H CBC/BMP Laboratory Tests 09/17/19 05:05 Microbiology Microbiology 09/16/19 Wound Culture - Preliminary, Resulted Staphylococcus Aureus 09/16/19 Wound Culture, Received Pending 09/15/19 Blood Culture - Preliminary, Resulted No Growth after 48 hours. All Specime... 09/15/19 Blood Culture - Preliminary, Resulted No Growth after 48 hours. All Specime... JR JOHNSON MD Sep 17, 2019 19:48
[2019-09-17] MEDS ORDERED: CARVedilol 12.5 MG TAB PO SCH (21:00)
[2019-09-17] MEDS: ATORVASTATIN 20 MG TAB PO SCH (21:38)
[2019-09-18] VITALS: BP 155/76
[2019-09-18] MEDS: MEROPENEM INJ 1 GM in IV 1 EA IV SCH (00:02)
[2019-09-18] MEDS: VANCOMYCIN HCL 1,000 MG, VIAL MATE ADAPTER 1 EACH in D5W 250 ML IV SCH (02:13)
[2019-09-18 04:00] VITALS: BP 116/62
[2019-09-18] MEDS: HEPARIN SOD (PORCINE) 5000 UNITS/ML VIAL (J1644 PER 1000UNITS) SQ SCH ×3 (05:00→21:34)
[2019-09-18 05:09] LABS: HEMATOCRIT 24.1 % (42.0-52.0); HEMOGLOBIN 7.8 g/dl (13.5-17.5); MEAN CORPUSCULAR HEMOGLOBIN 28.8 pg (27.0-33.0); MEAN CORPUSCULAR HGB CONC 32.4 g/dl (32.0-36.5); MEAN CORPUSCULAR VOLUME 88.9 fl (80.0-96.0); PLATELET COUNT, AUTOMATED 243 10^3/uL (150-450); RED BLOOD COUNT 2.71 10^6/uL (4.30-6.10); WHITE BLOOD COUNT 7.8 10^3/uL (4.0-10.0)
[2019-09-18 05:52] LABS: BLOOD UREA NITROGEN 19 MG/DL (7-18); CALCIUM LEVEL 8.5 MG/DL (8.5-10.1); CARBON DIOXIDE LEVEL 24 MEQ/L (21-32); CHLORIDE LEVEL 110 MEQ/L (98-107); CREATININE FOR GFR 1.17 MG/DL (0.70-1.30); GLOMERULAR FILTRATION RATE > 60.0 (>60); GLUCOSE, FASTING 153 MG/DL (70-100); MAGNESIUM LEVEL 1.8 MG/DL (1.8-2.4); SODIUM LEVEL 139 MEQ/L (136-145)
[2019-09-18] MEDS: HumaLOG INSULIN (NovoLOG) PER UNIT SC SCH ×4 (07:24→21:00)
[2019-09-18 08:02] VITALS: BP 176/106
[2019-09-18] MEDS: PERCOCET 5MG/325MG TAB PO PRN ×2 (08:30→22:31)
[2019-09-18] MEDS: PANTOPRAZOLE 40MG TAB (PROTONIX) PO SCH (08:30)
[2019-09-18] MEDS: DOCUSATE SODIUM 100 MG CAP PO SCH ×2 (08:30→21:34)
[2019-09-18] MEDS: FERROUS SULFATE 325MG TAB PO SCH ×2 (08:30→21:34)
[2019-09-18] MEDS: MIRALAX *UNIT DOSE* 17GM PACKET PO SCH (08:31)
[2019-09-18] MEDS: CARVedilol 12.5 MG TAB PO SCH ×2 (08:31→21:34)
[2019-09-18] MEDS ORDERED: MAG SULF 1GM/100ML (MAG RUN) 1 GM in IV 1 EA IV ONE (08:45)
[2019-09-18] MEDS ORDERED: BACTRIM 160MG/800MG DS TAB PO SCH (09:00)
--- NOTE | 2019-09-18 09:49 | REP ---
LEFT ANKLE: Four views. HISTORY: Ankle wound, infection, hardware. Comparison left ankle radiographs are from June 19, 2018. FINDINGS: There is diffuse moderate soft tissue swelling about the lateral aspect of the ankle and distal tibia and fibula. The patient is status post transmetatarsal and inner metatarsal amputations of the foot. There are two metallic screws in the medial malleolus. 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 There is a metallic screw plate fixation device in the distal fibula. It is unchanged in position. No fibular or tibial radiolucency is seen. No periosteal reaction is visible. The soft tissue swelling is irregular suggesting a lateral skin wound with overlying dressing at the level of the fibular plate on the frontal views. There is some soft tissue emphysema in the swollen soft tissues as well. There is vascular calcification in the distal calf and ankle soft tissues as well. IMPRESSION: Irregular soft tissue swelling about the lateral calf with soft tissue irregularity suggesting wound and soft tissue emphysema consistent with soft tissue infection. No bony erosive change or periosteal reaction seen. Distal fibular plate and medial malleolar screws unchanged in position from June 19, 2018. Electronically Signed by Kentrell Salas MD 09/18/2019 11:45 A
--- NOTE | 2019-09-18 10:05 | RO ---
DATE OF PROCEDURE: 09/17/2019 PREOPERATIVE DIAGNOSIS: Left ankle and leg infection. POSTOPERATIVE DIAGNOSIS: Left ankle and leg infection. PROCEDURE: Left leg incision and drainage. SURGEON: Dr. Bill Abraham DPM [employer] RESEARCHER: None. ANESTHESIA: Monitored anesthesia care with preoperative injection of 20 mL of a 1 to 1 mixture of 1% Lidocaine plain and 1/2 % Marcaine plain. ESTIMATED BLOOD LOSS: 15 mL. COMPLICATIONS: None. CONDITION: Stable. Panfilo García is a 39-year-old male who was admitted to the hospital from the ER with left leg infection. He had a bedside incision and drainage performed by myself yesterday but was noted to have continued purulent drainage and was brought to the operating room today for further incision and drainage. The patient site and side were identified and marked. Consent was reviewed and obtained. Risks, complications and alternatives were explained to the patient in detail. All questions were answered. The patient was brought to the operating room and placed on the operating room table in supine position and monitored anesthesia was carried out by the anesthesia team. Preoperative injection of 20 mL a 1 to 1 mixture of 1% Lidocaine plain and 1/2% Marcaine plain were injected in to the left foot. The left foot was sharply and draped in the normal sterile fashion. No tourniquet was used during the procedure. The wound was noted to be on the left lateral ankle and there was tracking going distally and slightly proximally form this wound. Incision was made along the tracking plane with a #15 blade. Purulence was identified and this was expressed manually. Some necrotic tissue of the subcutaneous tissue, tendon and muscle were removed using rongeur excision and debridement. Following this the site was irrigated with pulse lavage, 3000 mL of normal saline. The wound was noted to be adjacent to his ankle hardware and a screw was seen. There was no significant purulence or drainage from the metal plate and screws. Once there was no further purulence was noted the incision was repaired with 3-0 Nylon and the wound was packed with saline gauze. Sterile dressings were applied. The patient was bought to postanesthesia care unit with vital signs stable and neurovascular status intact. He will be readmitted to the floor. Continued antibiotics and monitoring. If he does not improve he may ultimately require removal of the metal hardware in his ankle. We will follow.
--- NOTE | 2019-09-18 11:42 | IPN ---
DATE OF SERVICE: 09/18/2019 The patient is seen and examined. States he is still having some pain in his foot. Labs are examined. White blood cell count is 7.8, CRP remains elevated at 25.3. Maximum temperature (T-max) is 99.1. Lower extremity examination: Erythema and edema are slightly improved. There is some persisting erythema and persistent purulence with expression. ASSESSMENT: 39-year-old diabetic male status post incision and drainage. PLAN: Continue antibiotics and dressing changes. Will monitor. If persisting drainage, will plan for a repeat incision and drainage and possibly removing the metallic hardware at the site.
[2019-09-18 12:00] VITALS: BP 174/87
--- NOTE | 2019-09-18 13:24 | IPNPDOC ---
Date Seen The patient was seen on 09/18/19. Progress Note SUBJECTIVE: 39 y.o male w/ PMH of DM, Gastroparesis, Osteomyelitis s/p partial L foot amputation & HTN is admitted for LLE cellulitis with abscess. He underwent bedside I&D by Podiatry today. He appears to be in a considerable amount of discomfort & febrile in the morning. He has received percocet/morphine without resolution of pain. Apart from LLE pain & chills, he has no other complaints at this time. He denies any SOB, CP, N/V/D or abdominal pain. 09/17/19 Patient seen in the morning, having mild ankle pain, otherwise, uneventful night, no complaints at this time. Patient evaluated by podiatry and scheduled to undergo another I&D in the OR today. 09/18/19 Underwent I&D in the OR yesterday, no complaints since surgery, pain well controlled, tolerating diet, comfortable in bed today. 10 point review of system is negative except for above. PHYSICAL EXAMINATION: VITAL SIGNS: Please see below. GENERAL: No distress HEENT: Normocephalic, atraumatic, moist mucous membranes NECK: Supple CARDIOVASCULAR EXAMINATION: S1, S2, no murmurs RESPIRATORY EXAMINATION: Clear to auscultation, no wheezing ABDOMINAL EXAMINATION: Soft, nontender, nondistended, positive bowel sounds EXTREMITIES: L foot w/ partial amputation, L supramalleolar region w/ larger wound, status post I&D with sutures and packing in the center, minimal serosanguineous drainage appreciated. SKIN: No rash NEUROLOGICAL EXAMINATION: Alert and oriented 3, no focal deficits PSYCHIATRIC EXAMINATION: Calm and cooperative LABORATORY DATA, IMAGING STUDIES, MICROBIOLOGY: Please see below. ASSESSMENT AND PLAN: 39 y.o male w/ PMH of DM, Gastroparesis, Osteomyelitis s/p partial L foot amputation & HTN is admitted for LLE cellulitis with abscess PROBLEMS: 1. Cellulitis w/ abscess - s/p I&D 2 by Podiatry, cultures grew MSSA, antibiotics switched to Bactrim and ID consulted for further assistance. 2. DM - continue patient's home insulin pump with sliding scale coverage if BS >250. 3. Acute kidney injury - improved with IV fluids, creatinine close to baseline, we'll monitor and treat accordingly. 4. HTN -BP remains elevated, home Coreg started. 5. GERD - continue Protonix DVT Prophylaxis - Heparin SubQ GI Prophylaxis - PPI VS, I&O, 24H, Fishbone Vital Signs/I&O Vital Signs Date Time Temp Pulse Resp B/P (MAP) Pulse Ox O2 Delivery O2 Flow Rate FiO2 09/18/19 09:00 18 09/18/19 08:31 102 176/106 09/18/19 08:02 99.1 97 Room Air 09/16/19 06:00 1.0 I&O- Last 24 Hours up to 6 AM 09/18/19 06:00 Intake Total 3170 ml Output Total 3352 ml Balance -182 ml Laboratory Data 24H LABS Laboratory Tests 2 09/17/19 14:09: Random Vancomycin Level 13.8 09/17/19 16:52: Bedside Glucose (Misc Panel) 280H 09/17/19 23:47: Bedside Glucose (Misc Panel) 201H 09/18/19 04:56: Nucleated Red Blood Cells % (auto) 0.0, Anion Gap 5L, Glomerular Filtration Rate > 60.0, Calcium Level 8.5, Phosphorus Level 3.0, Magnesium Level 1.8, C-Reactive Protein, Quantitative 25.30H 09/18/19 04:59: Bedside Glucose (Misc Panel) 140H 09/18/19 12:22: Bedside Glucose (Misc Panel) 141H CBC/BMP Laboratory Tests 09/18/19 04:56 Microbiology Microbiology 09/16/19 Wound Culture - Final, Complete Staphylococcus Aureus 09/16/19 Wound Culture - Preliminary, Resulted Staphylococcus Aureus 09/15/19 Blood Culture - Preliminary, Resulted No Growth after 48 hours. All Specime... 09/15/19 Blood Culture - Preliminary, Resulted No Growth after 48 hours. All Specime... JR JOHNSON MD Sep 18, 2019 13:24
[2019-09-18 16:00] VITALS: BP 170/93
--- NOTE | 2019-09-18 18:30 | CR ---
DATE OF CONSULTATION: 09/18/2019 I was asked to consult by hospitalist for Staphylococcus aureus abscess of the left leg. HISTORY OF PRESENT ILLNESS: Panfilo is a 39-year-old gentleman with a history of insulin-dependent diabetes with neuropathy and recurrent leg infection with osteomyelitis of the left foot in 2018 requiring multiple amputation. The patient has now a transmetatarsal amputation of the left foot and uses an ankle-foot orthosis (AFO) special boot for that foot. He needed a change in the boot because of adjustment, so they brought him a different one that caused an ulceration in his left leg. He followed up with Dr. Reddy for the past couple of weeks, but then developed an abscess fever and severe pain. He came to the hospital, where he was found to have a temperature of 102.4. Incision and drainage (I and D) at the bedside was done which was positive for methicillin-sensitive Staphylococcus aureus (MSSA). He was then taken to the operating room by Dr. Abraham on 09/17/2019 for the left leg incision and drainage. He is doing much better. He is anxious to go home. The patient was noted to have the wound very close to his ankle where there is hardware and a screw is seen, and there was concern by Dr. Abraham whether the hardware needs to be removed. He has been afebrile for the past 48 hours. He had some nausea and vomiting this morning. He denies any chest pain or shortness of breath. PAST MEDICAL HISTORY: Is significant for: 1. insulin-dependent diabetes. 2. Recurrent osteomyelitis of the left foot status post amputation. 3. Iron deficiency anemia. Endoscopy and colonoscopy only showed gastroparesis with no source of infection. 4. Chronic constipation. 5. Hyperlipidemia. MEDICATIONS: - insulin sliding scale - Zofran 4 mg intravenous (IV) every 8 hours - Dilaudid 1 mg IV every 4 hours - Percocet 1-2 tablets every 4 hours as needed - ferrous sulfate 325 mg by mouth twice a day - atorvastatin 20 mg by mouth daily - doxycycline 100 mg by mouth twice a day ALLERGIES: CEPHALOSPORINS. CAROL gave him serum sickness. PENICILLIN. LABORATORY DATA: White count 7.8 down from 12.9, hemoglobin 7.8, hematocrit 24.1, platelets 242. His hemoglobin was 6.6 on 09/16/2019. Sodium 139, potassium 4, chloride 110, bicarbonate 24, BUN 19, creatinine 1.17, glucose 153, calcium 8.5, phosphorus 3, magnesium 1.8. CRP 25.3. Blood cultures, two sets on 09/15/2019 were negative after 48 hours. Left leg culture is positive for MSSA, resistant to penicillin and tetracycline. IMAGING STUDIES: Ankle x-ray shows a irregular soft tissue swelling about the lateral calf, with soft tissue irregularity suggesting wound and soft tissue emphysema. No bony erosive changes or periosteal reaction. There is a distal fibular plate and medial malleolar screw unchanged from x-ray of June 2018. Renal ultrasound unremarkable right and left kidneys. Trace fluid of the inferior pole of the right kidney with a collapsed urinary bladder. Vascular ultrasound showed no evidence of deep venous thrombosis (DVT). On physical exam, temperature is 99.2, pulse 97, respirations 18, blood pressure 170/93, oxygen saturation 96% on room air. HEART: Normal S1, S2. No murmurs, rubs or gallops. LUNGS: Clear. No wheezes or rhonchi. ABDOMEN: Soft, nontender. No visceromegaly. He has an insulin pump in the right lower quadrant. BACK: No costovertebral angle (CVA) or lumbosacral tenderness. EXTREMITIES: Right leg no clubbing, cyanosis or edema. Left leg has an amputation of the transmetatarsal amputation of the left foot and he has an open incision on the left leg laterally, measuring about 10 cm. The central area of the incision is open. There is an ulceration measuring about 3 x 2 cm with granulation tissue. No purulent discharge. There is surrounding cellulitis of the wound. IMPRESSION: This is a 39-year-old gentleman with a history of chronic osteomyelitis of the left foot requiring multiple incision and drainages and amputations over a 6 month period. He has a history of recurrent infection. He also has a history of recurrent intolerance to medication. The patient is admitted this time with a Staphylococcus aureus abscess from a non-fitting prosthesis boot. He has improved with IV antibiotics an incision and drainage. He was switched to oral Bactrim and patient anxious to go home. I do not recommend using Bactrim for MSSA, as the patient has a history of acute kidney injury when he is septic and he is diabetic, at risk of having acute kidney injury probably from sulfa. I would recommend using linezolid if he can tolerate it. PLAN Discontinue oral Bactrim, switch to linezolid 600 mg by mouth twice a day. Please try to get prior authorization for Zyvox, as he is allergic to penicillin and cephalosporin. If he cannot tolerate linezolid, another option would be to give him Dalvance 1.5 gram IV dose and possibly a second one after 7-10 days. My concern is this infection is very close to the hardware in the ankle and he may develop osteomyelitis. Consult Patient and Family Services (PFS) for linezolid prior authorization before his discharge. [facility]
[2019-09-18 20:00] VITALS: BP 170/101
[2019-09-18] MEDS: LINEZOLID 600MG TABLET (ZYVOX) PO SCH (21:34)
[2019-09-18] MEDS: ATORVASTATIN 20 MG TAB PO SCH (21:34)
[2019-09-19] VITALS: BP 159/91
[2019-09-19 04:00] VITALS: BP 160/80
[2019-09-19] MEDS: HEPARIN SOD (PORCINE) 5000 UNITS/ML VIAL (J1644 PER 1000UNITS) SQ SCH ×3 (05:48→21:00)
[2019-09-19] MEDS: PERCOCET 5MG/325MG TAB PO PRN ×4 (05:48→20:59)
[2019-09-19 06:17] LABS: BLOOD UREA NITROGEN 14 MG/DL (7-18); CALCIUM LEVEL 8.6 MG/DL (8.5-10.1); CARBON DIOXIDE LEVEL 21 MEQ/L (21-32); CHLORIDE LEVEL 108 MEQ/L (98-107); CREATININE FOR GFR 0.85 MG/DL (0.70-1.30); GLOMERULAR FILTRATION RATE > 60.0 (>60); GLUCOSE, FASTING 222 MG/DL (70-100); MAGNESIUM LEVEL 1.8 MG/DL (1.8-2.4); PHOSPHORUS LEVEL 3.6 MG/DL (2.5-4.9); POTASSIUM SERUM 4.6 MEQ/L (3.5-5.1); SODIUM LEVEL 140 MEQ/L (136-145)
[2019-09-19] MEDS: HumaLOG INSULIN (NovoLOG) PER UNIT SC SCH ×4 (07:27→20:52)
[2019-09-19 08:00] VITALS: BP_SYST 160; BP_SYST 173; BP_DIAS 82; BP_DIAS 92
[2019-09-19] MEDS: DOCUSATE SODIUM 100 MG CAP PO SCH ×2 (08:27→20:58)
[2019-09-19] MEDS: PANTOPRAZOLE 40MG TAB (PROTONIX) PO SCH (08:27)
[2019-09-19] MEDS: LINEZOLID 600MG TABLET (ZYVOX) PO SCH ×2 (08:27→20:58)
[2019-09-19] MEDS: FERROUS SULFATE 325MG TAB PO SCH ×2 (08:27→20:58)
[2019-09-19] MEDS: CARVedilol 12.5 MG TAB PO SCH ×2 (08:28→20:58)
[2019-09-19] MEDS: MIRALAX *UNIT DOSE* 17GM PACKET PO SCH (08:28)
[2019-09-19] MEDS ORDERED: LINE1TAB6 PO (11:39)
[2019-09-19 12:00] VITALS: BP 174/86
--- NOTE | 2019-09-19 12:31 | IPN ---
DATE OF SERVICE: 09/19/2019 The patient is seen and examined. States he is feeling a little bit better. Still some pain. Vital signs are reviewed. He has remained afebrile. Laboratories are reviewed. White blood cell count is 7.8, CRP is 13.9. Lower extremity examination: Erythema and edema are reduced. There remains some trace purulence with expression from the wound. ASSESSMENT: A 39-year-old diabetic male, cellulitis abscess left leg. PLAN: Will plan to take him to the operating room tomorrow for repeat incision and drainage and removal of hardware. Discussed that this hardware at this point holds no function for his leg but does pose threat of persisting infections. The exposure is already more or less opened. Now would be an appropriate time for removal to minimize his risk of hardware-related infection. The patient will be nothing by mouth midnight. Withholding anticoagulation. Anticipate discharge on if all goes well on oral linezolid.
[2019-09-19 13:16] VITALS: BP 171/95
[2019-09-19] MEDS ORDERED: CARVedilol 12.5 MG TAB PO ONE (13:45)
[2019-09-19] MEDS ORDERED: MAG SULF 1GM/100ML (MAG RUN) 1 GM in IV 1 EA IV ONE (16:45)
--- NOTE | 2019-09-19 16:45 | IPNPDOC ---
Date Seen The patient was seen on 09/19/19. Progress Note SUBJECTIVE: 39 y.o male w/ PMH of DM, Gastroparesis, Osteomyelitis s/p partial L foot amputation & HTN is admitted for LLE cellulitis with abscess. He underwent bedside I&D by Podiatry today. He appears to be in a considerable amount of discomfort & febrile in the morning. He has received percocet/morphine without resolution of pain. Apart from LLE pain & chills, he has no other complaints at this time. He denies any SOB, CP, N/V/D or abdominal pain. 09/17/19 Patient seen in the morning, having mild ankle pain, otherwise, uneventful night, no complaints at this time. Patient evaluated by podiatry and scheduled to undergo another I&D in the OR today. 09/18/19 Underwent I&D in the OR yesterday, no complaints since surgery, pain well controlled, tolerating diet, comfortable in bed today. 09/19/19 Patient comfortable in bed, no acute events overnight, without complaints at this time, plan for removal of hardware in the left lower extremity tomorrow. 10 point review of system is negative except for above. PHYSICAL EXAMINATION: VITAL SIGNS: Please see below. GENERAL: No distress HEENT: Normocephalic, atraumatic, moist mucous membranes NECK: Supple CARDIOVASCULAR EXAMINATION: S1, S2, no murmurs RESPIRATORY EXAMINATION: Clear to auscultation, no wheezing ABDOMINAL EXAMINATION: Soft, nontender, nondistended, positive bowel sounds EXTREMITIES: L foot w/ partial amputation, L supramalleolar region w/ larger wound, status post I&D with sutures and packing in place SKIN: No rash NEUROLOGICAL EXAMINATION: Alert and oriented 3, no focal deficits PSYCHIATRIC EXAMINATION: Calm and cooperative LABORATORY DATA, IMAGING STUDIES, MICROBIOLOGY: Please see below. ASSESSMENT AND PLAN: 39 y.o male w/ PMH of DM, Gastroparesis, Osteomyelitis s/p partial L foot amputation & HTN is admitted for LLE cellulitis with abscess PROBLEMS: 1. Cellulitis w/ abscess - s/p I&D 2 by Podiatry, cultures grew MSSA, and ID eval appreciated, on Zyvox, social media marketing specialist arranging for outpatient approval, scheduled for or tomorrow to remove lower extremity hardware. 2. DM - continue patient's home insulin pump with sliding scale coverage if BS >250. 3. Acute kidney injury - resolved with IV fluids, creatinine at baseline. 4. HTN - BP remains elevated, increased Coreg to 25 mg twice a day 5. GERD - continue Protonix DVT Prophylaxis - Heparin SubQ GI Prophylaxis - PPI VS, I&O, 24H, Fishbone Vital Signs/I&O Vital Signs Date Time Temp Pulse Resp B/P (MAP) Pulse Ox O2 Delivery O2 Flow Rate FiO2 09/19/19 15:02 18 Room Air 09/19/19 13:45 94 171/95 09/19/19 12:00 97.8 95 09/16/19 06:00 1.0 I&O- Last 24 Hours up to 6 AM 09/19/19 06:00 Intake Total 1240 ml Output Total 1000 ml Balance 240 ml Laboratory Data 24H LABS Laboratory Tests 2 09/19/19 01:34: Bedside Glucose (Misc Panel) 140H 09/19/19 05:24: Anion Gap 11, Glomerular Filtration Rate > 60.0, Calcium Level 8.6, Phosphorus Level 3.6, Magnesium Level 1.8, C-Reactive Protein, Quantitative 13.90H 09/19/19 05:47: Bedside Glucose (Misc Panel) 255H 09/19/19 11:26: Bedside Glucose (Misc Panel) 189H CBC/BMP Laboratory Tests 09/19/19 05:24 Microbiology Microbiology 09/16/19 Wound Culture - Final, Complete Staphylococcus Aureus 09/16/19 Wound Culture - Final, Complete Staphylococcus Aureus Streptococcus Mitis Pasteurella Dagmatis 09/15/19 Blood Culture - Preliminary, Resulted No Growth after 72 hours. All specime... 09/15/19 Blood Culture - Preliminary, Resulted No Growth after 72 hours. All specime... JR JOHNSON MD Sep 19, 2019 16:45
--- NOTE | 2019-09-19 18:12 | IPNPDOC ---
Date Seen The patient was seen on 09/19/19. Progress Note SUBJECTIVE: Patient is a 39 year old Male with a past history of type 1 diabetes mellitus, diabetic neuropathy, recurrent left leg and foot infections with previous osteomyelitis s/p transmetatarsal amputation, who presented to the emergency department with progressive swelling, redness, and pain of his left lower extremity for over a week. He was sitting on the couch saying he is able to use the walker to get around. He has received percocet/morphine and stated that his pain was "better." Patient stated that he did not vomit, "the new antibiotics are good." Patient was seen twice, he was downgraded this afternoon from PCU where he was resting comfortably in bed. Patient denies fever, nausea, vomiting, chest pain, shortness of breath, abdominal pain, diarrhea, and hematuria. OBJECTIVE PHYSICAL EXAMINATION: VITAL SIGNS: Please see below. GENERAL: No acute distress, sitting on couch. CARDIOVASCULAR: Regular rate and rhythm, Normal S1 and S2. No murmurs, rubs, or gallops. RESPIRATORY: Clear to auscultation b/l, No wheezes, rales, or rhonchi. ABDOMINAL: Soft, non-distended, non-tender. SKIN: Left transmetarsal amputation, limited erythma around dressing. Dressings were clean, dry and intact. LABORATORY DATA, IMAGING STUDIES, MICROBIOLOGY: Please see below. ASSESSMENT: This is a 39 year old Male with a past history of type 1 diabetes mellitus, diabetic neuropathy, recurrent left leg and foot infections with previous osteomyelitis s/p transmetatarsal amputation history of chronic osteomyelitis of the left foot requiring multiple incision and drainages and amputations over a 6 month period. He has a history of recurrent infection. He has improved with IV antibiotics and an incision and drainage, and is tolerating PO Linezolid well. Avoid Bactrim because of patient history of acute kidney injury when he is septic and he is diabetic, at risk of having acute kidney injury probably from sulfa. Continue Linezolid as patient is tolerating medication well with no vomiting, but minimal appetite. PLAN Continue Linezolid 600 mg by mouth twice a day. Please try to get prior authorization for Zyvox, as he is allergic to penicillin and cephalosporin. Patient will undergo a second incision and drainage, and removal of fibular plate performed by Podiatry. Consult Patient and Family Services (PFS) for linezolid prior authorization before his discharge. DISPOSITION: Please try to get prior authorization for Zyvox, as he is allergic to penicillin and cephalosporin. If he cannot tolerate linezolid, another option would be to give him Dalvance 1.5 gram IV dose and possibly a second one after 7-10 days. Patient was seen and discussed with Dr Parker Lyon, infectious disease preceptor. GME ATTESTATION My faculty preceptor for this patient encounter was physically present during the encounter and was fully available. All aspects of the patient interview, examination, medical decision making process, and medical care plan development were reviewed and approved by the faculty preceptor. The faculty preceptor is aware and concurs with the plan as stated in the body of this note and will attest to such by his/her cosignature. VS, I&O, 24H, Fishbone Vital Signs/I&O Vital Signs Date Time Temp Pulse Resp B/P (MAP) Pulse Ox O2 Delivery O2 Flow Rate FiO2 09/19/19 15:02 18 Room Air 09/19/19 13:45 94 171/95 09/19/19 12:00 97.8 95 09/16/19 06:00 1.0 I&O- Last 24 Hours up to 6 AM 09/19/19 06:00 Intake Total 1240 ml Output Total 1000 ml Balance 240 ml Laboratory Data 24H LABS Laboratory Tests 2 09/19/19 01:34: Bedside Glucose (Misc Panel) 140H 09/19/19 05:24: Anion Gap 11, Glomerular Filtration Rate > 60.0, Calcium Level 8.6, Phosphorus Level 3.6, Magnesium Level 1.8, C-Reactive Protein, Quantitative 13.90H 09/19/19 05:47: Bedside Glucose (Misc Panel) 255H 09/19/19 11:26: Bedside Glucose (Misc Panel) 189H 09/19/19 16:53: Bedside Glucose (Misc Panel) 162H CBC/BMP Laboratory Tests 09/19/19 05:24 Microbiology Microbiology 09/16/19 Wound Culture - Final, Complete Staphylococcus Aureus 09/16/19 Wound Culture - Final, Complete Staphylococcus Aureus Streptococcus Mitis Pasteurella Dagmatis 09/15/19 Blood Culture - Preliminary, Resulted No Growth after 72 hours. All specime... 09/15/19 Blood Culture - Preliminary, Resulted No Growth after 72 hours. All specime... NORMA PERAZA-IV Sep 19, 2019 18:06 Parker Lyon MD Sep 21, 2019 17:04
[2019-09-19] MEDS: ATORVASTATIN 20 MG TAB PO SCH (20:59)
[2019-09-19 22:00] VITALS: BP 166/93
[2019-09-20] VITALS (9 sets, daily range): BP systolic 136–160; BP diastolic 70–90
[2019-09-20] MEDS: HEPARIN SOD (PORCINE) 5000 UNITS/ML VIAL (J1644 PER 1000UNITS) SQ SCH (05:18)
[2019-09-20] MEDS: HumaLOG INSULIN (NovoLOG) PER UNIT SC SCH ×4 (07:30→21:00)
[2019-09-20] MEDS: MIRALAX *UNIT DOSE* 17GM PACKET PO SCH (08:08)
[2019-09-20] MEDS: CARVedilol 12.5 MG TAB PO SCH ×2 (10:14→21:12)
[2019-09-20] MEDS: LINEZOLID 600MG TABLET (ZYVOX) PO SCH ×2 (10:14→21:11)
[2019-09-20] MEDS: FERROUS SULFATE 325MG TAB PO SCH ×2 (10:15→21:11)
[2019-09-20] MEDS: PANTOPRAZOLE 40MG TAB (PROTONIX) PO SCH (10:15)
[2019-09-20] MEDS: DOCUSATE SODIUM 100 MG CAP PO SCH ×2 (10:15→21:11)
[2019-09-20] MEDS ORDERED: dexameTHASONE 4 MG/ML 1ML VIAL (J1100) As Ordered ONE (11:56)
[2019-09-20] MEDS ORDERED: LIDOCAINE 1% SDV INJ 30 ML VIAL As Ordered ONE (11:56)
[2019-09-20] MEDS ORDERED: BUPIVACAINE HCL 0.5% 30 ML VIAL As Ordered ONE (11:57)
[2019-09-20] MEDS ORDERED: HYDROMORPHONE HCL 0.5 MG/ 0.5 ML SYRINGE (J1170 PER 1) IV PRN (14:00)
[2019-09-20] MEDS ORDERED: oxyCODONE 5MG TAB PO PRN (14:00)
[2019-09-20] MEDS ORDERED: LR 1,000 ML IV SCH (14:00)
[2019-09-20] MEDS ORDERED: ONDANSETRON 4MG/2ML VIAL (J2405) IV PRN (14:00)
[2019-09-20] MEDS: PERCOCET 5MG/325MG TAB PO PRN ×2 (14:11→18:58)
--- NOTE | 2019-09-20 14:13 | RO ---
DATE OF SURGERY: 09/20/2019 PREOPERATIVE DIAGNOSIS: Left leg and ankle hardware and infection. POSTOPERATIVE DIAGNOSIS: Left leg and ankle hardware and infection. PROCEDURE: Left ankle hardware removal and incision and drainage. SURGEON: Bill Abraham DPM MAINTENANCE FITTER: None ANESTHESIA: Monitored anesthesia care with preoperative injection of 13 mL of 1:1 mixture of 1% lidocaine plain and 0.5% Marcaine plain. ESTIMATED BLOOD LOSS: Minimal. MATERIALS: 3-0 nylon. INJECTABLES: None. COMPLICATIONS: None. CONDITION: Stable. Panfilo García is a 39-year-old male who has been undergoing treatment for left leg infection. He was noted to have persistent drainage, and the ulcer is directly overlaying previously-implanted metal hardware. Decision was made to bring him to the operating room for hardware removal to ensure hardware infection and potential osteomyelitis is prevented. The patient's side and site were identified and marked in the preoperative area. Consent was reviewed and obtained. All risks, complications, and alternatives of the procedure were explained to the patient in detail, and all questions were answered. DESCRIPTION OF PROCEDURE: The patient was brought to the operating room and placed on the operating table in the supine position. Monitored anesthesia care was delivered by the anesthesia team. A preoperative injection of 13 mL of 1:1 mixture of 1% lidocaine plain and 0.5% Marcaine plan were injected to the left leg. The foot and leg were prepped and draped in normal sterile fashion. The previous incision was opened with #15 blade. There was some seropurulent drainage immediately under the incision, but no other significant purulence was noted. Dissection was carried through the scar tissue until the plate was identified, which was laying directly inferior to the ulceration in the area where the infection was coming from. There was no necrotic tissue. No signs of osteomyelitis. There was no purulence surrounding the plate on today's examination. The plate and screws were removed with screwdriver; and following this, the site was irrigated with 3000 mL of pulse lavage. The incision was again repaired with 3-0 nylon with the central open area packed with saline gauze. The patient was brought to postanesthesia care unit (PACU) with vital signs stable and neurovascular status intact. He will be readmitted to the floor with plans for discharge tomorrow.
[2019-09-20] MEDS: HYDROMORPHONE HCL 0.5 MG/ 0.5 ML SYRINGE (J1170 PER 1) IV PRN ×3 (17:45→22:15)
--- NOTE | 2019-09-20 17:45 | IPNPDOC ---
Date Seen The patient was seen on 09/20/19. Progress Note SUBJECTIVE: 39 y.o male w/ PMH of DM, Gastroparesis, Osteomyelitis s/p partial L foot amputation & HTN is admitted for LLE cellulitis with abscess. He underwent bedside I&D by Podiatry today. He appears to be in a considerable amount of discomfort & febrile in the morning. He has received percocet/morphine without resolution of pain. Apart from LLE pain & chills, he has no other complaints at this time. He denies any SOB, CP, N/V/D or abdominal pain. 09/17/19 Patient seen in the morning, having mild ankle pain, otherwise, uneventful night, no complaints at this time. Patient evaluated by podiatry and scheduled to undergo another I&D in the OR today. 09/18/19 Underwent I&D in the OR yesterday, no complaints since surgery, pain well controlled, tolerating diet, comfortable in bed today. 09/19/19 Patient comfortable in bed, no acute events overnight, without complaints at this time, plan for removal of hardware in the left lower extremity tomorrow. 09/20/19 No acute events overnight, scheduled for removal of hardware in the left lower extremity later today. 10 point review of system is negative except for above. PHYSICAL EXAMINATION: VITAL SIGNS: Please see below. GENERAL: No distress HEENT: Normocephalic, atraumatic, moist mucous membranes NECK: Supple CARDIOVASCULAR EXAMINATION: S1, S2, no murmurs RESPIRATORY EXAMINATION: Clear to auscultation, no wheezing ABDOMINAL EXAMINATION: Soft, nontender, nondistended, positive bowel sounds EXTREMITIES: L foot w/ partial amputation, L supramalleolar region w/ larger wound, status post I&D, dressing in place. SKIN: No rash NEUROLOGICAL EXAMINATION: Alert and oriented 3, no focal deficits PSYCHIATRIC EXAMINATION: Calm and cooperative LABORATORY DATA, IMAGING STUDIES, MICROBIOLOGY: Please see below. ASSESSMENT AND PLAN: 39 y.o male w/ PMH of DM, Gastroparesis, Osteomyelitis s/p partial L foot amputation & HTN is admitted for LLE cellulitis with abscess PROBLEMS: 1. Cellulitis w/ abscess - s/p I&D 2 by Podiatry, cultures grew MSSA, ID eval appreciated, on Zyvox, scheduled for removal of left lower extremity hardware later today. 2. DM - continue patient's home insulin pump with sliding scale coverage if BS >250. 3. Acute kidney injury - resolved with IV fluids, creatinine at baseline. 4. HTN - blood pressure now stable, continue Coreg 25 mg twice a day 5. GERD - continue Protonix 6. Sepsis present on presentation, resolved with IV antibiotics and IV fluids. DVT Prophylaxis - Heparin SubQ GI Prophylaxis - PPI VS, I&O, 24H, Fishbone Vital Signs/I&O Vital Signs Date Time Temp Pulse Resp B/P (MAP) Pulse Ox O2 Delivery O2 Flow Rate FiO2 09/20/19 14:41 18 Room Air 09/20/19 13:55 97.4 87 123/84 (97) 96 09/16/19 06:00 1.0 I&O- Last 24 Hours up to 6 AM 09/20/19 06:00 Intake Total 1800 ml Output Total 950 ml Balance 850 ml Laboratory Data 24H LABS Laboratory Tests 2 09/19/19 20:38: Bedside Glucose (Misc Panel) 160H 09/20/19 01:54: Bedside Glucose (Misc Panel) 132H 09/20/19 06:19: Bedside Glucose (Misc Panel) 104 Microbiology Microbiology 09/16/19 Wound Culture - Final, Complete Staphylococcus Aureus 09/16/19 Wound Culture - Final, Complete Staphylococcus Aureus Streptococcus Mitis Pasteurella Dagmatis 09/15/19 Blood Culture - Preliminary, Resulted No Growth after 72 hours. All specime... 09/15/19 Blood Culture - Preliminary, Resulted No Growth after 72 hours. All specime... JR JOHNSON MD Sep 20, 2019 17:45
[2019-09-20] MEDS: ATORVASTATIN 20 MG TAB PO SCH (21:10)
[2019-09-21] MEDS: PERCOCET 5MG/325MG TAB PO PRN ×3 (00:28→09:10)
[2019-09-21 02:00] VITALS: BP 139/70
[2019-09-21] MEDS: HYDROMORPHONE HCL 0.5 MG/ 0.5 ML SYRINGE (J1170 PER 1) IV PRN ×3 (03:30→12:40)
[2019-09-21] MEDS: HEPARIN SOD (PORCINE) 5000 UNITS/ML VIAL (J1644 PER 1000UNITS) SQ SCH ×2 (06:12→13:47)
[2019-09-21 06:38] LABS: HEMATOCRIT 24.9 % (42.0-52.0); MEAN CORPUSCULAR HEMOGLOBIN 28.3 pg (27.0-33.0); MEAN CORPUSCULAR HGB CONC 32.1 g/dl (32.0-36.5); PLATELET COUNT, AUTOMATED 299 10^3/uL (150-450); RED BLOOD COUNT 2.83 10^6/uL (4.30-6.10)
[2019-09-21 07:02] LABS: BLOOD UREA NITROGEN 14 MG/DL (7-18); CARBON DIOXIDE LEVEL 28 MEQ/L (21-32); CHLORIDE LEVEL 107 MEQ/L (98-107); GLOMERULAR FILTRATION RATE > 60.0 (>60); GLUCOSE, FASTING 128 MG/DL (70-100); MAGNESIUM LEVEL 1.8 MG/DL (1.8-2.4); PHOSPHORUS LEVEL 3.9 MG/DL (2.5-4.9); POTASSIUM SERUM 3.8 MEQ/L (3.5-5.1); SODIUM LEVEL 141 MEQ/L (136-145)
[2019-09-21] MEDS: HumaLOG INSULIN (NovoLOG) PER UNIT SC SCH ×2 (07:30→11:34)
[2019-09-21] MEDS: PANTOPRAZOLE 40MG TAB (PROTONIX) PO SCH (08:32)
[2019-09-21] MEDS: DOCUSATE SODIUM 100 MG CAP PO SCH (08:32)
[2019-09-21] MEDS: FERROUS SULFATE 325MG TAB PO SCH (08:32)
[2019-09-21] MEDS: LINEZOLID 600MG TABLET (ZYVOX) PO SCH (08:32)
[2019-09-21 08:33] VITALS: BP 139/70
[2019-09-21] MEDS: MIRALAX *UNIT DOSE* 17GM PACKET PO SCH (08:33)
[2019-09-21] MEDS: CARVedilol 12.5 MG TAB PO SCH (08:33)
[2019-09-21 10:00] VITALS: BP 164/85
[2019-09-21] MEDS ORDERED: PERCOCET PO (12:35)
[2019-09-21 14:00] VITALS: BP 160/86
[2019-09-21 14:01] VITALS: BP 120/83
--- NOTE | 2019-09-21 18:11 | DS.PDOC ---
Discharge Summary General Date of Admission Sep 15, 2019 at 22:20 Date of Discharge 09/21/19 Attending Physician: JR JOHNSON MD Discharge Summary PROCEDURES PERFORMED DURING STAY: None. ADMITTING DIAGNOSES: 1. Left lower extremity cellulitis with abscess, acute kidney injury. DISCHARGE DIAGNOSES: 1. Left lower chrie cellulitis with abscess, acute kidney injury. COMPLICATIONS/CHIEF COMPLAINT: Cellulitis Of Foot;Sepsis. HISTORY OF PRESENT ILLNESS: 39-year-old male with history of diabetes, osteomyelitis and left foot partial amputation was admitted for left lower extremity cellulitis with abscess. Patient underwent I&D by podiatry 3 followed by removal of hardware around the ankle as well. Patient was evaluated by infectious disease, cultures grew MSSA, patient was switched to Zyvox. Patient's acute kidney injury was treated with IV fluids and creatinine is not back to baseline. Patient seen in the morning, comfortable, without any complaints, clinically and hemodynamically stable for discharge and outpatient follow-up. HOSPITAL COURSE: As above. DISCHARGE MEDICATIONS: Please see below. ALLERGIES: Please see below. PHYSICAL EXAMINATION: VITAL SIGNS: Please see below. GENERAL: No distress HEENT: Normocephalic, atraumatic, moist mucous membranes NECK: Supple CARDIOVASCULAR EXAMINATION: S1, S2, no murmurs RESPIRATORY EXAMINATION: Clear to auscultation, no wheezing ABDOMINAL EXAMINATION: Soft, nontender, nondistended, positive bowel sounds EXTREMITIES: L foot w/ partial amputation, wound at left supramalleolar region, sutured peripherally, no drainage at this time. SKIN: No rash NEUROLOGICAL EXAMINATION: Alert and oriented 3, no focal deficits PSYCHIATRIC EXAMINATION: Calm and cooperative LABORATORY DATA: Please see below. PROGNOSIS: Fair ACTIVITY: As tolerated. DIET: Diabetic DISCHARGE PLAN: Follow-up with podiatry, infectious disease and PCP within 1-2 weeks DISPOSITION: 01 Home, Self-Care. DISCHARGE INSTRUCTIONS: 1. As above. DISCHARGE CONDITION: Stable. TIME SPENT ON DISCHARGE: Greater than 34 minutes. Vital Signs/I&Os Vital Signs Date Time Temp Pulse Resp B/P (MAP) Pulse Ox O2 Delivery O2 Flow Rate FiO2 09/21/19 14:01 97.8 83 22 120/83 (95) 96 Room Air 09/16/19 06:00 1.0 I&O- Last 24 Hours up to 6 AM 09/21/19 05:59 Intake Total 1395 ml Output Total 500 ml Balance 895 ml Laboratory Data Labs 24H Laboratory Tests 2 09/20/19 21:10: Bedside Glucose (Misc Panel) 167H 09/21/19 05:46: Bedside Glucose (Misc Panel) 113H 09/21/19 06:28: Anion Gap 6L, Glomerular Filtration Rate > 60.0, Calcium Level 8.0L, Phosphorus Level 3.9, Magnesium Level 1.8 09/21/19 06:29: Nucleated Red Blood Cells % (auto) 0.0 09/21/19 11:28: Bedside Glucose (Misc Panel) 182H CBC/BMP Laboratory Tests 09/21/19 06:28 09/21/19 06:29 FSBS Laboratory Tests Test 09/20/19 21:10 09/21/19 05:46 09/21/19 11:28 Range/Units Bedside Glucose (Misc Panel) 167 113 182 70-105 MG/DL Microbiology Microbiology 09/16/19 Wound Culture - Final, Complete Staphylococcus Aureus 09/16/19 Wound Culture - Final, Complete Staphylococcus Aureus Streptococcus Mitis Pasteurella Dagmatis 09/15/19 Blood Culture - Final, Complete NO GROWTH AFTER 5 DAYS 09/15/19 Blood Culture - Final, Complete NO GROWTH AFTER 5 DAYS Discharge Medications Scheduled Atorvastatin Calcium (Atorvastatin Calcium) 20 Mg Tablet, 20 MG PO QPM, (Reported) TAKES AT DINNERTIME Carvedilol (Carvedilol) 25 Mg Tab, 12.5 MG PO BID, (Reported) Docusate Sodium (Colace) 100 Mg Cap, 100 MG PO BID, (Reported) Duloxetine HCl (Duloxetine HCl) 60 Mg Capsule.dr, 60 MG PO QPM, (Reported) TAKES AT DINNERTIME Ferrous Sulfate (Ferrous Sulfate) 325 Mg Tab, 325 MG PO Q2D, (Reported) Insulin Lispro (Admelog Solostar) 100 Unit/Ml Inj, 1 DOSE SC AC, (Reported) PER INSULIN PUMP Linezolid (Linezolid) 600 Mg Tablet, 600 MG PO BID Pantoprazole Sodium (Pantoprazole Sodium) 40 Mg Tab, 40 MG PO DAILY, (Reported) Polyethylene Glycol 3350 (Miralax) 1 Pow Pow, 17 GRAM PO DAILY for constipation, (Reported) Pregabalin (Lyrica) 150 Mg Capsule, 150 MG PO BID, (Reported) Scheduled PRN Acetaminophen (Acetaminophen) 325 Mg Tablet, 325 MG PO Q6H PRN for PAIN, (Reported) Hydrocodone/Acetaminophen (Hydrocodone-Acetamin 5-325 mg) 1 Tab Tab, 1 TAB PO BI D PRN for PAIN, (Reported) Oxycodone/Acetaminophen (Oxycodone-Acetaminophen 5-325) 1 Each Tablet, 1 TAB PO Q4HP PRN for MILD/MODERATE PAIN (PS 1-7) Allergies Coded Allergies: Cephalosporins (Verified Allergy, Severe, SOB, 12/13/18) Penicillins (Verified Allergy, Intermediate, JOINTS SWELL, Rash, 12/13/18) JR JOHNSON MD Sep 21, 2019 18:11
== END 2019-09-21 14:50 | disposition home or self-care (01) | DRG 710 ==
LOC: M ED 17:46 → M ED INP 22:20 → ENRESERV 23:55 → M PCU 09-16 01:00 → M MS5PR 09-19 14:45
PROVIDERS: ADMIT Internal Medicine; ATTEND Internal Medicine
PROC: 0KBT0ZZ Excision of Left Lower Leg Muscle, Open Approach (ICD-10-PCS; 2019-09-17)
PROC: 0Y9J0ZZ Drainage of Left Lower Leg, Open Approach (ICD-10-PCS; principal; 2019-09-17 09:46)
PROC: 0QPK04Z Removal of Internal Fixation Device from Left Fibula, Open Approach (ICD-10-PCS; 2019-09-20)
DX: A41.9 Sepsis, unspecified organism (principal); N17.9 Acute kidney failure, unspecified; E10.43 Type 1 diabetes mellitus with diabetic autonomic (poly)neuropathy; E10.622 Type 1 diabetes mellitus with other skin ulcer; L03.116 Cellulitis of left lower limb; E87.1 Hypo-osmolality and hyponatremia; Z79.899 Other long term (current) drug therapy; Z88.0 Allergy status to penicillin; Z88.1 Allergy status to other antibiotic agents; K21.9 Gastro-esophageal reflux disease without esophagitis; M90.8 Osteopathy in diseases classified elsewhere; I10 Essential (primary) hypertension; D50.9 Iron deficiency anemia, unspecified; K59.00 Constipation, unspecified; E78.5 Hyperlipidemia, unspecified; B95.61 Methicillin susceptible Staphylococcus aureus infection as the cause of diseases classified elsewhere

== ENCOUNTER → 2019-09-28 | Outpatient (REF) | payer OTHER ==
[~2019-09-28] MED LIST changes: +APAP325T4 PO; +ATOR1TAB21 PO; +DULO60CA35 PO; +LINE1TAB6 PO; +LYRI150C PO; +MIDO10TA PO
[2019-09-28 11:38] LABS: BASO # 0.1 10^3/uL (0.0-0.2); BASO % 0.9 % (0.0-1.0); EOS # 0.1 10^3/uL (0.0-0.5); EOS % 0.7 % (0.0-3.0); HEMATOCRIT 27.1 % (42.0-52.0); HEMOGLOBIN 8.5 g/dl (13.5-17.5); LYMPH # 1.5 10^3/uL (1.5-5.0); LYMPH % 21.6 % (24.0-44.0); MEAN CORPUSCULAR HEMOGLOBIN 28.4 pg (27.0-33.0); MEAN CORPUSCULAR HGB CONC 31.4 g/dl (32.0-36.5); MEAN CORPUSCULAR VOLUME 90.6 fl (80.0-96.0); MONO # 0.6 10^3/uL (0.0-0.8); MONO % 9.5 % (0.0-5.0); NEUTROPHILS # 4.5 10^3/uL (1.5-8.5); PLATELET COUNT, AUTOMATED 424 10^3/uL (150-450); RED BLOOD COUNT 2.99 10^6/uL (4.30-6.10); WHITE BLOOD COUNT 6.7 10^3/uL (4.0-10.0)
[2019-09-28 11:42] LABS: C REACTIVE PROTEIN QUANTITATIV 1.11 MG/DL (0.00-0.30); CALCIUM LEVEL 8.8 MG/DL (8.5-10.1); CREATININE FOR GFR 1.43 MG/DL (0.70-1.30); GLOMERULAR FILTRATION RATE 58.9 (>60); POTASSIUM SERUM 5.1 MEQ/L (3.5-5.1)
[2019-09-28 12:15] LABS: ERYTHROCYTE SEDIMENTATION RATE 63 mm/hr (0-15)
== END ==
LOC: M SFHCPLAZ 09:00
PROVIDERS: ATTEND Internal Medicine Infectious Disease
DX: A49.01 Methicillin susceptible Staphylococcus aureus infection, unspecified site (principal)

== ENCOUNTER → 2019-09-29 | Outpatient (REF) | payer OTHER | LOC: M LAB REF 09:16 | PROVIDERS: ATTEND Dermatology | DX: D49.2 Neoplasm of unspecified behavior of bone, soft tissue, and skin (principal) ==

== ENCOUNTER → 2019-10-10 | Outpatient (POV) | payer OTHER ==
[~2019-10-10] VITALS: Ht 180.3 cm; Wt 77.3 kg
[2019-10-10 10:35] VITALS: BP 120/75
--- NOTE | 2019-10-11 10:41 | IRCOV ---
[facility] IR Consult Office Visit IR Consult Office Visit DATE: Oct 10, 2019 REASON FOR CONSULTATION/CHIEF COMPLAINT: Nonhealing lower extremity wounds. HISTORY OF PRESENT ILLNESS: 39-year-old male with type 1 diabetes, hypertension and hyperlipidemia with bilateral diabetic foot ulcers. More prominent on the left foot which has a Charcot foot deformity. Prior transmetatarsal amputation of left foot. He has new wounds related to an offloading brace, involving the lateral super malleolar area of his left lower extremity. Currently under the care of wound care for this. No intermittent claudication, rest pain, history of gangrene or cold leg. No prior deep vein thrombosis. Multiple traumas to the left lower extremity. Multiple surgeries left lower extremity. Left lower extremity neuropathy. Shooting pains up the legs. Aching of the heels. No chest pain, shortness of breath, paroxysmal nocturnal dyspnea or orthopnea. No prior SD or stroke. Nonsmoker. Poor diabetes control; HbA1c 7.8. ALLERGIES: Please see below. HOME MEDICATIONS: Please see below. PAST MEDICAL HISTORY: Type 1 diabetes Hypertension Neuropathy ED Left foot osteomyelitis GERD Nausea vomiting Anemia Gastroparesis PAST SURGICAL HISTORY: Left lower extremity fracture steel plate 2004 Laser eye surgery Left transmetatarsal amputation Plate removal left lower extremity due to infection FAMILY HISTORY: Noncontributory SOCIAL HISTORY: Nonsmoker. Chews tobacco. No alcohol or drugs. REVIEW OF SYSTEMS: Otherwise negative. PHYSICAL EXAMINATION: VITAL SIGNS: Please see below. GENERAL APPEARANCE: Appears well. Comfortable at rest. HEENT: No scleral icterus. RESPIRATORY: Normal breathing at rest. CARDIOVASCULAR: Normal rate. ABDOMEN: Soft nontender. EXTREMITIES: Left lower extremity: Transmetatarsal amputation. Superficial ulceration left cardenas. No pressure ulcers. No skin discoloration or gangrene. Extremity warm to touch. Femoral pulse 2+ popliteal pulse 2+ PT + patchy sensory loss to the knees. Motor 5 out of 5 Right lower extremity: No pressure ulcers. No skin discoloration or gangrene. Extremity warm to touch. Femoral pulse 2+ popliteal pulse 2+ PT + patchy sensory loss to the knees. Motor 5 out of 5 NEUROLOGICAL: Alert and oriented. PSYCHIATRIC: Appropriate to circumstance. LABORATORY DATA: 09/28/2019 hemoglobin 8.5 hematocrit 27.1 WBC 6.7 platelets 424 sodium 140 potassium 5.1 BUN 17 creatinine 1.43 GFR 58.9 Imaging: I personally reviewed the arterial ultrasound from August 2019. Right lower extremity triphasic waveforms throughout. Left lower extremity demonstrates monophasic waveform in the left tibioperoneal trunk, AT and PT ASSESSMENT/PLAN: 39 male with nonhealing lower extremity diabetic ulcers presents for arterial evaluation status post ultrasound. We will order a CTA with runoff study on him to plan for any possible intervention. CTA will be performed with IV hydration. I spent 30 minutes in consultation with the patient. Thank you for this referral. Cc Dr. Reddy Allergies Coded Allergies: Cephalosporins (Verified Allergy, Severe, SOB, 12/13/18) Penicillins (Verified Allergy, Intermediate, JOINTS SWELL, Rash, 12/13/18) Home Medications Scheduled Atorvastatin Calcium (Atorvastatin Calcium), 20 MG PO QPM, (Reported) Carvedilol (Carvedilol), 12.5 MG PO BID, (Reported) Docusate Sodium (Colace), 100 MG PO BID, (Reported) Duloxetine HCl (Duloxetine HCl), 60 MG PO QPM, (Reported) Ferrous Sulfate (Ferrous Sulfate), 325 MG PO Q2D, (Reported) Insulin Lispro (Admelog Solostar), 1 DOSE SC AC, (Reported) Linezolid (Linezolid), 600 MG PO BID Pantoprazole Sodium (Pantoprazole Sodium), 40 MG PO DAILY, (Reported) Polyethylene Glycol 3350 (Miralax), 17 GRAM PO DAILY, (Reported) Pregabalin (Lyrica), 150 MG PO BID, (Reported) Scheduled PRN Acetaminophen (Acetaminophen), 325 MG PO Q6H PRN for PAIN, (Reported) Hydrocodone/Acetaminophen (Hydrocodone-Acetamin 5-325 mg), 1 TAB PO BID PRN for PAIN, (Reported) Oxycodone/Acetaminophen (Oxycodone-Acetaminophen 5-325), 1 TAB PO Q4HP PRN for MILD/MODERATE PAIN (PS 1-7) VS, I&O, 24H, Fishbone Vital Signs/I&O Vital Signs Date Time Temp Pulse Resp B/P (MAP) Pulse Ox O2 Delivery O2 Flow Rate FiO2 10/10/ 10:35 97.9 93 18 120/75 (90) 99 Room Air ZORAN BLAS MD Oct 11, 2019 10:41
== END ==
LOC: M IRPOV 09:39
PROVIDERS: ATTEND Radiology Diagnostic Radiology
DX: E10.621 Type 1 diabetes mellitus with foot ulcer (principal); E10.40 Type 1 diabetes mellitus with diabetic neuropathy, unspecified; I10 Essential (primary) hypertension; E78.5 Hyperlipidemia, unspecified; L97.519 Non-pressure chronic ulcer of other part of right foot with unspecified severity; L97.529 Non-pressure chronic ulcer of other part of left foot with unspecified severity; M14.672 Charcot's joint, left ankle and foot

== ENCOUNTER → 2019-10-16 | Outpatient (REF) | payer OTHER ==
[2019-10-16 12:51] LABS: BASO # 0.1 10^3/uL (0.0-0.2); BASO % 1.3 % (0.0-1.0); EOS # 0.1 10^3/uL (0.0-0.5); EOS % 2.6 % (0.0-3.0); HEMATOCRIT 24.9 % (42.0-52.0); HEMOGLOBIN 8.1 g/dl (13.5-17.5); LYMPH # 1.3 10^3/uL (1.5-5.0); LYMPH % 32.3 % (24.0-44.0); MEAN CORPUSCULAR HEMOGLOBIN 28.5 pg (27.0-33.0); MEAN CORPUSCULAR HGB CONC 32.5 g/dl (32.0-36.5); MEAN CORPUSCULAR VOLUME 87.7 fl (80.0-96.0); MONO # 0.4 10^3/uL (0.0-0.8); MONO % 10.1 % (0.0-5.0); NEUTROPHILS # 2.1 10^3/uL (1.5-8.5); NEUTROPHILS % 53.4 % (36.0-66.0); PLATELET COUNT, AUTOMATED 114 10^3/uL (150-450); RED BLOOD COUNT 2.84 10^6/uL (4.30-6.10); WHITE BLOOD COUNT 3.9 10^3/uL (4.0-10.0)
[2019-10-16 13:18] LABS: ERYTHROCYTE SEDIMENTATION RATE 39 mm/hr (0-15)
== END ==
LOC: M SFHCPLAZ 10:03
PROVIDERS: ATTEND Internal Medicine Infectious Disease
DX: A49.01 Methicillin susceptible Staphylococcus aureus infection, unspecified site (principal)

== ENCOUNTER → 2019-10-17 | Outpatient (CLI) | payer OTHER ==
[~2019-10-17] MED LIST changes: +ISOVUE-370 76% 100ML VIAL (Q9967) As Ordered ONE
--- NOTE | 2019-10-17 18:03 | REPVR ---
PROCEDURE INFORMATION: Exam: CTA Angiogram of the Abdominal Aorta and Bilateral Lower Extremities (Run-off) With IV Contrast Exam date and time: 10/17/2019 5:17 PM Age: 39 years old Clinical indication: Abdominal pain; Generalized; Additional info: Pad; With bilateral runoff TECHNIQUE: Imaging protocol: CT angiogram of the abdominal aorta, pelvis and bilateral lower extremities with IV iodinated contrast. 3D rendering: MIP and/or 3D reconstructed images were created by the technologist. Radiation optimization: All CT scans at this facility use at least one of these dose optimization techniques: automated exposure control; mA and/or kV adjustment per patient size (includes targeted exams where dose is matched to clinical indication); or iterative reconstruction. Contrast material: ISO 370; Contrast volume: 100 ml; Contrast route: IV; COMPARISON: CT Chest without contrast 06/19/2018 12:36 PM FINDINGS: Aorta: No aortic aneurysm. No aortic dissection. Celiac trunk and mesenteric arteries: No occlusion or significant stenosis. Renal arteries: No occlusion or significant stenosis. Right iliac arteries: No occlusion or significant stenosis. Right femoral/popliteal arteries: Mild atherosclerotic changes in the right common femoral artery without significant stenosis. Mild atherosclerotic changes in the right superficial femoral artery without significant stenosis. Right infrapopliteal arteries: No occlusion or significant stenosis. Left iliac arteries: No occlusion or significant stenosis. Left femoral/popliteal arteries: Mild atherosclerotic changes in the left common femoral artery without significant stenosis. Mild atherosclerotic changes in the left superficial femoral artery without significant stenosis. Left infrapopliteal arteries: No occlusion or significant stenosis. Liver: No mass. Gallbladder and bile ducts: Unremarkable. No calcified stones. No ductal dilation. Pancreas: Unremarkable. No mass. No ductal dilation. Spleen: Normal. No splenomegaly. Adrenals: Normal. No mass. Kidneys and ureters: Mild perinephric inflammatory changes demonstrated bilaterally. Clinical correlation to exclude ascending urinary tract infection suggested. Otherwise normal. No mass. Stomach and bowel: There is increased feces throughout the colon consistent with constipation. Appendix: No evidence of appendicitis. Bladder: Unremarkable. No mass. Reproductive: Unremarkable as visualized. Intraperitoneal space: Unremarkable. No free air. No significant fluid collection. Lymph nodes: No lymphadenopathy. Bones/joints: There is a grade 1/2 anterior spondylolisthesis of L5 on S1 secondary to bilateral L5 spondylolysis. Soft tissues: Unremarkable. IMPRESSION: 1. There is a grade 1/2 anterior spondylolisthesis of L5 on S1 secondary to bilateral L5 spondylolysis. 2. There is increased feces throughout the colon consistent with constipation. 3. Mild atherosclerotic changes in the common femoral and superficial femoral arteries bilaterally without significant stenosis. There is bilateral three-vessel runoff in the infrapopliteal arteries. Dorsalis pedis arteries visualized bilaterally. 4. Mild bilateral perinephric inflammatory changes as described above. Clinical correlation to exclude infection is suggested. Electronically signed by: Myke Joseph On 10/17/2019 18:03:17 PM
--- NOTE | 2019-10-18 13:16 | IRPN ---
[facility] IR Progress Note IR Progress Note DATE: Oct 18, 2019 I personally reviewed the CTA images with runoff performed 10/17/2019. Bilateral lower extremity runoff arteriogram looks good, without any inflow outflow or runoff disease. I called the patient and explained these results. Patient does not require angiography and/or intervention at this time. Thank you for this referral Cc Casi Bryant Allergies Coded Allergies: Cephalosporins (Verified Allergy, Severe, SOB, 12/13/18) Penicillins (Verified Allergy, Intermediate, JOINTS SWELL, Rash, 12/13/18) ZORAN BLAS MD Oct 18, 2019 13:16
== END ==
LOC: M RAD 15:26
PROVIDERS: ATTEND Radiology Diagnostic Radiology
DX: I73.9 Peripheral vascular disease, unspecified (principal); M43.17 Spondylolisthesis, lumbosacral region
CPT/HCPCS: 75635; Q9967

== ENCOUNTER → 2019-10-30 | Outpatient (REF) | payer OTHER ==
[~2019-10-30] MED LIST changes: -ISOVUE-370 76% 100ML VIAL (Q9967) As Ordered ONE
[2019-10-30 16:03] LABS: BASO # 0.1 10^3/uL (0.0-0.2); BASO % 1.6 % (0.0-1.0); EOS # 0.3 10^3/uL (0.0-0.5); EOS % 8.9 % (0.0-3.0); HEMATOCRIT 27.2 % (42.0-52.0); HEMOGLOBIN 8.7 g/dl (13.5-17.5); LYMPH # 1.4 10^3/uL (1.5-5.0); MEAN CORPUSCULAR HEMOGLOBIN 28.8 pg (27.0-33.0); MEAN CORPUSCULAR VOLUME 90.1 fl (80.0-96.0); MONO # 0.3 10^3/uL (0.0-0.8); MONO % 10.4 % (0.0-5.0); NEUTROPHILS # 1.1 10^3/uL (1.5-8.5); NEUTROPHILS % 36.1 % (36.0-66.0); PLATELET COUNT, AUTOMATED 250 10^3/uL (150-450); RED BLOOD COUNT 3.02 10^6/uL (4.30-6.10); WHITE BLOOD COUNT 3.2 10^3/uL (4.0-10.0)
[2019-10-30 16:06] LABS: PERCENT SATURATION 29.4 % (19.7-50.0)
== END ==
LOC: M LABDRAW1 13:56
PROVIDERS: ATTEND Internal Medicine Infectious Disease
DX: E10.621 Type 1 diabetes mellitus with foot ulcer (principal)

== ENCOUNTER → 2019-11-29 | Outpatient (REF) | payer OTHER ==
[~2019-11-29] MED LIST changes: +VITA-243 PO; -VITA500T PO
== END ==
LOC: M LAB REF 18:30
PROVIDERS: ATTEND Dermatology
DX: L72.0 Epidermal cyst (principal)

== ENCOUNTER → 2020-02-15 | Outpatient (CLI) | payer OTHER ==
[2020-02-15 15:31] LABS: APPEARANCE, URINE CLEAR (CLEAR); BACTERIA, URINE AUTO NEGATIVE (NEGATIVE); BILIRUBIN, URINE AUTO NEGATIVE (NEGATIVE); BLOOD, URINE BLOOD NEGATIVE (NEGATIVE); COLOR, URINE STRAW (YELLOW); GLUCOSE, URINE (UA) AUTO 1+ mg/dL (NEGATIVE); KETONE, URINE AUTO NEGATIVE (NEGATIVE); LEUKOCYTE ESTERASE, URINE AUTO NEGATIVE (NEGATIVE); NITRITE, URINE AUTO NEGATIVE (NEGATIVE); PROTEIN, URINE AUTO NEGATIVE (NEGATIVE); RBC, URINE AUTO 0 /HPF (0-3); SPECIFIC GRAVITY URINE AUTO 1.005 (1.002-1.035); SQUAMOUS EPITHELIAL CELL UR AU 0 /HPF (0-6); UROBILINOGEN, URINE AUTO 0.2 mg/dL (0.0-2.0); WBC, URINE AUTO 0 /HPF (0-3)
[2020-02-15 15:50] LABS: CALCIUM LEVEL 9.3 MG/DL (8.5-10.1); CREATININE FOR GFR 1.56 MG/DL (0.70-1.30); GLOMERULAR FILTRATION RATE 53.3 (>60); PHOSPHORUS LEVEL 3.3 MG/DL (2.5-4.9); PTH INTACT 82.4 PG/ML (18.5-88.0)
[2020-02-15 15:51] LABS: TOTAL PROTEIN,RANDOM URINE 9.1 MG/DL (0.0-12.0)
== END ==
LOC: M PLALAB 13:40
DX: Z01.89 Encounter for other specified special examinations (principal)

== ENCOUNTER → 2020-02-15 | Outpatient (CLI) | payer OTHER ==
[2020-02-15 15:33] LABS: HEMATOCRIT 33.9 % (42.0-52.0); HEMOGLOBIN 10.9 g/dl (13.5-17.5); MEAN CORPUSCULAR HEMOGLOBIN 27.7 pg (27.0-33.0); MEAN CORPUSCULAR HGB CONC 32.2 g/dl (32.0-36.5); MEAN CORPUSCULAR VOLUME 86.3 fl (80.0-96.0); PLATELET COUNT, AUTOMATED 205 10^3/uL (150-450); RED BLOOD COUNT 3.93 10^6/uL (4.30-6.10); WHITE BLOOD COUNT 3.5 10^3/uL (4.0-10.0)
[2020-02-15 15:38] LABS: CHOLESTEROL RISK RATIO 3.085 (<5)
== END ==
LOC: M PLALAB 13:45
PROVIDERS: ATTEND Physician Assistant
DX: Z01.89 Encounter for other specified special examinations (principal)

== ENCOUNTER → 2020-05-14 | Outpatient (CLI) | payer OTHER ==
[~2020-05-14] MED LIST changes: +AMLO1TAB24 PO; -AMLO5TAB6 PO; +PANT40TA29 PO; -PANT40TA3 PO
[2020-05-14 14:29] LABS: CALCIUM LEVEL 9.6 MG/DL (8.5-10.1); CREATININE FOR GFR 1.62 MG/DL (0.70-1.30); GLOMERULAR FILTRATION RATE 50.8 (>60); PHOSPHORUS LEVEL 3.3 MG/DL (2.5-4.9); POTASSIUM SERUM 5.2 MEQ/L (3.5-5.1)
== END ==
LOC: M PLALAB 09:26
PROVIDERS: ATTEND Student in an Organized Health Care Education/Training Program
DX: N18.4 Chronic kidney disease, stage 4 (severe) (principal)

== ENCOUNTER → 2020-07-02 | Outpatient (CLI) | payer MEDICARE, OTHER ==
[~2020-07-02] MED LIST changes: +LABE100T4 PO; -LABE10TAB PO
[2020-07-02 15:27] LABS: ALBUMIN 4.4 GM/DL (3.2-5.2); BILIRUBIN,TOTAL 0.7 MG/DL (0.2-1.0); CALCIUM LEVEL 9.3 MG/DL (8.5-10.1); CHOLESTEROL RISK RATIO 2.593 (<5); CREATININE FOR GFR 1.49 MG/DL (0.70-1.30); GLOMERULAR FILTRATION RATE 55.9 (>60); POTASSIUM SERUM 5.4 MEQ/L (3.5-5.1); THYROID STIMULATING HORMONE 0.091 uIU/ML (0.358-3.740); TOTAL PROTEIN 7.8 GM/DL (6.4-8.2)
[2020-07-02 15:54] LABS: CREATININE, URINE 79.5 MG/DL; MALB URINE SIEMENS 53.1 MG/L; MAU/CREAT RATIO 66.7 MCG/MG (0.0-30.0)
== END ==
LOC: M PLALAB 12:03
PROVIDERS: ATTEND Internal Medicine Endocrinology, Diabetes & Metabolism
DX: E10.649 Type 1 diabetes mellitus with hypoglycemia without coma (principal)

== ENCOUNTER → 2020-07-18 | Outpatient (CLI) | payer MEDICARE, OTHER ==
[2020-07-18 20:18] LABS: FREE T4 1.1 NG/DL (0.76-1.46); THYROID STIMULATING HORMONE 0.142 uIU/ML (0.358-3.740)
[2020-07-18 20:20] LABS: TOTAL T3 101.8 NG/DL (60.0-181.0)
== END ==
LOC: M PLALAB 15:47
PROVIDERS: ATTEND Nurse Practitioner Family
DX: E05.00 Thyrotoxicosis with diffuse goiter without thyrotoxic crisis or storm (principal); E10.621 Type 1 diabetes mellitus with foot ulcer

== ENCOUNTER → 2020-08-23 | Outpatient (CLI) | payer MEDICARE, OTHER ==
[~2020-08-23] MED LIST changes: -CLIN150C14 PO; +CLIN150C15 PO; +GABA-282 PO; -GABA-843 PO
--- NOTE | 2020-08-23 12:09 | REP ---
INDICATION: PAIN COMPARISON: None. TECHNIQUE: AP, lateral, bilateral oblique views left foot. 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 No obvious acute periosteal reaction. Overlying soft tissue swelling is similar to prior examination although small amounts of subcutaneous emphysema cannot definitively be excluded. IMPRESSION: Similar appearance the osseous structures and overlying soft tissues as compared with 09/18/2019. subtle subcutaneous emphysema cannot be excluded. <Electronically signed by Austin Alves > 08/23/20 0858
== END ==
LOC: M WUC 11:34
PROVIDERS: ATTEND Physician Assistant
DX: M79.672 Pain in left foot (principal); M21.6X2 Other acquired deformities of left foot

== ENCOUNTER → 2020-09-06 | Outpatient (REF) | payer MEDICARE, OTHER ==
[~2020-09-06] MED LIST changes: -LISI-538 PO; +LISI10TA22 PO; -LISI10TA4 PO; +LISI20TA33 PO; -LISI40TA PO; +LISI40TA4 PO
[2020-09-06 18:23] LABS: FREE T4 0.83 NG/DL (0.76-1.46); THYROID STIMULATING HORMONE 0.324 uIU/ML (0.358-3.740)
== END ==
LOC: M PLALAB 17:03 → M LAB REF 17:03
PROVIDERS: ATTEND Nurse Practitioner Family
DX: E05.00 Thyrotoxicosis with diffuse goiter without thyrotoxic crisis or storm (principal)

== ENCOUNTER → 2020-10-18 | Outpatient (REF) | payer MEDICARE, OTHER | LOC: M LAB REF 16:24 | PROVIDERS: ATTEND Family Medicine Addiction Medicine | DX: M79.605 Pain in left leg (principal); M25.511 Pain in right shoulder; M54.16 Radiculopathy, lumbar region ==

== ENCOUNTER → 2020-10-22 | Outpatient (CLI) | payer MEDICARE, OTHER ==
--- NOTE | 2020-10-22 12:35 | REP ---
INDICATION: PAIN COMPARISON: None. TECHNIQUE: AP, lateral, bilateral oblique views left 2nd digit. FINDINGS: No obvious acute fracture or dislocation. No significant degenerative changes are appreciated. Old healed injury involving the metacarpal bone cannot be excluded. No subcutaneous emphysema or foreign body. IMPRESSION: No obvious acute process appreciated. <Electronically signed by Austin Alves > 10/22/20 4128
--- NOTE | 2020-10-22 12:37 | REP ---
INDICATION: PAIN COMPARISON: None. TECHNIQUE: Internal rotation, external rotation, and Y view. FINDINGS: No acute fracture or dislocation. The acromioclavicular and glenohumeral joints are intact and age-appropriate. No periarticular calcifications or overt degenerative changes are appreciated. Sub acromial space is normal. Surrounding soft tissues are unremarkable. IMPRESSION: Normal age-appropriate right shoulder radiographs. <Electronically signed by Austin Alves > 10/22/20 7318
--- NOTE | 2020-10-22 12:38 | REP ---
INDICATION: PAIN COMPARISON: None. TECHNIQUE: AP, lateral, coned-down views of the lumbar spine. FINDINGS: Three views of the lumbosacral spine demonstrate satisfactory alignment and lordosis without acute fracture / compression injury or subluxation. IMPRESSION: 1. Normal lumbosacral spine radiographs. <Electronically signed by Austin Alves > 10/22/20 8413
== END ==
LOC: M WUC 12:08
PROVIDERS: ATTEND Family Medicine Addiction Medicine
DX: M79.645 Pain in left finger(s) (principal); M25.511 Pain in right shoulder; M54.16 Radiculopathy, lumbar region; M79.605 Pain in left leg

== ENCOUNTER → 2020-12-15 | Outpatient (CLI) | payer MEDICARE, OTHER ==
[~2020-12-15] MED LIST changes: +METO25TA4 PO; +MIDO5TA PO; +VENL75CA47 PO
== END ==
LOC: M LABSMTC 09:41
PROVIDERS: ATTEND Anesthesiology
DX: Z01.818 Encounter for other preprocedural examination (principal); Z20.822 Contact with and (suspected) exposure to COVID-19

== ENCOUNTER 2020-12-20 07:08 | Day surgery (SDC) | payer MEDICARE, OTHER ==
[~2020-12-20] VITALS: Ht 177.8 cm; Wt 77.5 kg
[~2020-12-20 07:08] MED LIST changes: +NS 1,000 ML IV ONE; +SIMETHICONE 40MG/0.6ML DROPS 30ML As Ordered ONE
[2020-12-20] MEDS ORDERED: fentaNYL 100 MCG/2 ML INJECTION (J3010) As Ordered ONE (08:23)
[2020-12-20] MEDS ORDERED: LIDOCAINE 2% 100MG/5ML SDV (FOR ANES.) As Ordered ONE (08:23)
[2020-12-20] MEDS ORDERED: propofoL 200 MG/20 ML VIAL As Ordered ONE (08:23)
--- NOTE | 2020-12-20 08:35 | ROOR ---
Patient Name: Panfilo García Procedure Date: 12/20/2020 8:18 AM Date of : 1980 Age: 40 Room: [facility] Gender: Male Note Status: Finalized Procedure: Upper GI endoscopy Indications: Follow-up of gastroparesis, Nausea with vomiting Providers: Dennis SERVIN MD Referring MD: Daniel CISSE MD Requesting Provider: Medicines: Monitored Anesthesia Care Complications: No immediate complications. Procedure: Pre-Anesthesia Assessment: - The heart rate, respiratory rate, oxygen saturations, blood pressure, adequacy of pulmonary ventilation, and response to care were monitored throughout the procedure. The Endoscope was introduced through the mouth, and advanced to the second part of duodenum. The upper GI endoscopy was somewhat difficult due to presence of food. Successful completion of the procedure was aided by performing the maneuvers documented (below) in this report. The patient tolerated the procedure well. Findings: A medium amount of food (residue) was found in the entire examined stomach. Removal of food was accomplished. The esophagus was normal. The stomach was normal. The examined duodenum was normal. Impression: - Gastroparesis: A medium amount of food (residue) in the stomach. Removal was successful. - Normal esophagus. - Normal stomach. - Normal examined duodenum. Recommendation: - Gastroparesis diet: - Eat smaller, more frequent meals throughout the day. - Low fat diet. - Liquid/soft foods are tolerated better than solid foods. - Low fiber/well cooked vegetables are tolerated better than high fiber/fibrous foods/raw vegetables. - Avoid medications that inhibit gastric/intestinal motility such as narcotic medications. - Consider trial on movantik for constipation/possible benefit for gastroparesis in face of need for chronic narcotics. (Per prescribing team). Procedure Code(s): --- Professional --- 16320, Esophagogastroduodenoscopy, flexible, transoral; with removal of foreign body(s) Diagnosis Code(s): --- Professional --- K31.84, Gastroparesis T18.2XXA, Foreign body in stomach, initial encounter CPT copyright 2019 [employer]. All rights reserved. The codes documented in this report are preliminary and upon master technician review may be revised to meet current compliance requirements. Dennis Servin MD Dennis SERVIN MD 12/20/2020 8:35:32 AM Electronically signed by Dennis SERVIN MD Number of Addenda: 0 Note Initiated On: 12/20/2020 8:18 AM Estimated Blood Loss: Estimated blood loss: none.
[2020-12-20 09:08] VITALS: BP 112/64
== END 2020-12-20 09:11 | disposition home or self-care (01) ==
LOC: M OPP 07:08
PROVIDERS: ATTEND Internal Medicine Gastroenterology
DX: K31.84 Gastroparesis (principal); T18.2XXA Foreign body in stomach, initial encounter; R12 Heartburn; K21.9 Gastro-esophageal reflux disease without esophagitis; N18.30 Chronic kidney disease, stage 3 unspecified; F17.210 Nicotine dependence, cigarettes, uncomplicated; Z79.891 Long term (current) use of opiate analgesic; Z79.899 Other long term (current) drug therapy; Z88.0 Allergy status to penicillin; Z88.1 Allergy status to other antibiotic agents; Z96.41 Presence of insulin pump (external) (internal); Y92.9 Unspecified place or not applicable
CPT/HCPCS: 43247; J3010

== ENCOUNTER → 2020-12-23 | Outpatient (REF) | payer MEDICARE, OTHER ==
[~2020-12-23] MED LIST changes: +GABA-283 PO; -GABA-845 PO; -NS 1,000 ML IV ONE; -SIMETHICONE 40MG/0.6ML DROPS 30ML As Ordered ONE
[2020-12-23 18:35] LABS: BLOOD UREA NITROGEN 20 MG/DL (7-18); CALCIUM LEVEL 9.8 MG/DL (8.5-10.1); CARBON DIOXIDE LEVEL 29 MEQ/L (21-32); CHLORIDE LEVEL 103 MEQ/L (98-107); CREATININE FOR GFR 1.27 MG/DL (0.70-1.30); GLOMERULAR FILTRATION RATE > 60.0 (>60); GLUCOSE, FASTING 187 MG/DL (70-100); POTASSIUM SERUM 5.2 MEQ/L (3.5-5.1); SODIUM LEVEL 135 MEQ/L (136-145)
== END ==
LOC: M LAB REF 17:01
PROVIDERS: ATTEND Family Medicine Addiction Medicine
DX: N18.9 Chronic kidney disease, unspecified (principal); N08 Glomerular disorders in diseases classified elsewhere

== ENCOUNTER → 2021-01-02 | Outpatient (CLI) | payer MEDICARE, OTHER ==
--- NOTE | 2021-01-03 09:04 | REP ---
INDICATION: STRAIN OF MUSC/FASC/TEND PRT BICEPS. COMPARISON: Radiographs 10/22/2020. TECHNIQUE: Coronal oblique T1, T2 fat sat, sagittal oblique T2 fat sat, axial T2 fat sat, gradient echo. T1 fat sat in multiple planes prior to and following the intravenous administration of 15 mL ProHance. FINDINGS: Rotator cuff: There is moderate tendinopathy/tendinitis of the supraspinatus tendon with no focal tear identified. Acromioclavicular joint: There are mild hypertrophic degenerative changes of the acromioclavicular joint. Acromion: Type 2 Biceps Tendon: In bicipital groove, with mild surrounding fluid. Hill Sach's deformity: None. Deltoid muscle: No abnormal signal. Biceps labral complex: I suspect fraying of the biceps labral complex. Labrum: There is a tear of the superior labrum. There is a paralabral cyst along the superior aspect of the glenoid measuring approximately 1 cm in diameter. Cartilage: No defects. Bone marrow: No abnormal signal. Joint fluid: No effusion. There is no abnormal soft tissue or osseous enhancement. IMPRESSION: Moderate tendinopathy/tendinitis of the supraspinatus tendon, with no focal rotator cuff tear. Mild hypertrophic degenerative changes acromioclavicular joint, with a type 2 acromion. I suspect fraying of the biceps labral complex. There is a tear of the superior labrum with an associated paralabral cyst along the superior aspect of the glenoid, 1 cm maximum diameter. <Electronically signed by Alexander Goodman > 01/03/21 3106
== END ==
LOC: M RAD 14:51
PROVIDERS: ATTEND Family Medicine Addiction Medicine
DX: M75.31 Calcific tendinitis of right shoulder (principal)

== ENCOUNTER → 2021-01-16 | Outpatient (CLI) | payer MEDICARE, OTHER ==
--- NOTE | 2021-01-16 11:32 | REP ---
INDICATION: PAIN. COMPARISON: 12/12/2017. TECHNIQUE: Three AP and lateral views. FINDINGS: There is no evidence of fracture or dislocation. There is some straightening of the normal cervical lordosis. There is no prevertebral soft tissue swelling. There is slight narrowing of the C4-5 disc space. There is mild spurring and sclerotic change at the posterior facet joints. IMPRESSION: Mild degenerative changes as above. <Electronically signed by Alexander Goodman > 01/16/21 1120
== END ==
LOC: M SOG 10:32
PROVIDERS: ATTEND Orthopaedic Surgery Sports Medicine
DX: M54.12 Radiculopathy, cervical region (principal)

== ENCOUNTER → 2021-06-06 | Outpatient (CLI) | payer MEDICARE, OTHER ==
[~2021-06-06] MED LIST changes: -CLIN150C15 PO; +CLIN150C17 PO
== END ==
LOC: M LABSMTC 09:35
PROVIDERS: ATTEND Anesthesiology
DX: Z01.812 Encounter for preprocedural laboratory examination (principal); Z20.822 Contact with and (suspected) exposure to COVID-19

== ENCOUNTER 2021-06-11 06:05 | Day surgery (SDC) | payer MEDICARE, OTHER ==
[~2021-06-11] VITALS: Ht 177.8 cm; Wt 80.3 kg
--- OUTSIDE RECORDS SUMMARY | 2021-06-11 06:10 | CCD | Continuity of Care Document ---
Author Author Panfilo SANCHEZ MD Organization Unknown Address [address] , [facility] [address] [place] [address] Phone [phone] Care Team Providers Care Safety And Security Officer Name Role Phone Parker Lyon M.D. AUTM [phone] Daniel Rajan M.D. AUTM [phone] Fidelia Quinonez AUTM [phone] Carmen Emmanuel AUTM [phone] AUTM Unavailable Problems Description No Active Problems Social History Type Date Description Comments Sex Unknown ETOH Use Denies alcohol use Tobacco Use Start: Unknown Non Smoker Recreational Drug Use Denies Drug Use Tobacco Use Start: Unknown Chewing Tobacco 1 can per dayDo ument: 07/20/19 - History-Specialty Surgery Allergies, Adverse Reactions, Alerts Active Allergies Criticality Reaction | Severity Comments Date Penicillins Unable to assess criticality 09/07/2018 Cefaclor Unable to assess criticality 09/07/2018 Medications Active Medications SIG Qnty Indications Ordering Provide r Date Pantoprazole Sodium 40mg Tablets D R Take One Tablet By Mouth Twice A Day 60tabs Dennis Servin MD 12/12/2020 Miralax 3350NF Powder Take 17 grams by mouth once daily. 510gm K59.00 Dennis Servin MD 09/07/2018 Docusate Sodium 100mg Tablets 1 tab by mouth daily Unknown Hydrocodone Bitartrate/Acetaminophen 5-325mg Tablets Take 1 tab by mouth 5-6 times daily as needed. Unknown Atorvastatin Calcium 10mg Tablets take 1 tab by mouth daily Unknown Admelog 100Unit/ML Solution v ia pump Unknown Lyrica 150mg Capsules 1 tab by mouth three times a day Unknown Tums 500mg Chewtabs prn Unknown Midodrine HCL 5mg Tablets 1 by mouth 2 times a day Unknown Venlafaxine HCL 75mg Tablets 1 by mouth every day Unknown Immunizations Description No Information Available Vital Signs Date Vital Result Comment 04/24/2021 10:40am Body Temperature 97.6 F 03/10/2021 9:18am Body Temperature 97.8 F Results Description No Information Available Procedures Date Code Description Status 04/24/2021 18561 Office/Outpatient Established Mo d MDM 30-39 Min Completed 03/10/2021 08706 Office/Outpatient Established Mo d MDM 30-39 Min Completed 03/10/2021 68806 Inject/Drain Arthrocentesis Lisa r Joint/Bursa/Ganglion Cyst Completed 02/06/2021 52899 Office/Outpatient New Moderate M DM 45-59 Minutes Completed 01/16/2021 57409 Office/Outpatient New Moderate M DM 45-59 Minutes Completed 12/20/2020 16166 Endoscopy Upper GI Remove Foreig n Body Completed 11/05/2020 93000 Office/Outpatient Established Mo d MDM 30-39 Min Completed Medical Devices Description No Information Available Encounters Type Date Location Provider Dx Diagnosis Office Visit 04/24/2021 10:45a [facility] Orthopedics Daniel Sanchez MD M75.41 Impingement syndrome of right shoulder G56.01 Carpal tunnel syndrome, righ t upper limb Office Visit 03/10/2021 9:15a [facility] Orthopedics Daniel Sanchez MD M75.41 Impingement syndrome of right shoulder G56.01 Carpal tunnel syndrome, righ t upper limb G90.09 Other idiopathic peripheral autonomic neuropathy Office Visit 02/06/2021 10:00a [facility] Gastroenterology Pra richard Sepulveda, RPA-C K21.9 Gastro-esophageal reflux dis ease without esophagitis K31.84 Gastroparesis R11.2 Nausea with vomiting, unspec ified K59.00 Constipation, unspecified Office Visit 01/16/2021 10:00a [facility] Orthopedics Daniel Sanchez MD S43.431A Superior glenoid labrum lesion of right shoulder, init M75.81 Other shoulder lesions, righ t shoulder M19.011 Primary osteoarthritis, righ t shoulder R20.0 Anesthesia of skin Office Visit 11/05/2020 8:30a [facility] ENT Practice Zuleika Casiano [place], RPA-C K21.9 Gastro-esophageal reflux dis ease without esophagitis R11.2 Nausea with vomiting, unspec ified K31.84 Gastroparesis K59.00 Constipation, unspecified Assessments Date Code Description Provider 04/24/2021 M75.41 Impingement syndrome of right sybil Sanchez MD 04/24/2021 G56.01 Carpal tunnel syndrome, right up per limb Daniel Sanchez MD 03/10/2021 M75.41 Impingement syndrome of right sh sybil Sanchez MD 03/10/2021 G56.01 Carpal tunnel syndrome, right up per limb Daniel Sanchez MD 03/10/2021 G90.09 Other idiopathic peripheral auto nomic neuropathy Daniel Sanchez MD 02/06/2021 K21.9 Gastro-esophageal reflux disease without esophagitis Zuleika A [place], RPA-C 02/06/2021 K31.84 Gastroparesis Zuleika A Lorenzo bois, RPA-C 02/06/2021 R11.2 Nausea with vomiting, unspecifie d Zuleika A [place], RPA-C 02/06/2021 K59.00 Constipation, unspecified Meliss a A Charlebois, RPA-C 01/16/2021 S43.431A Superior glenoid lab rum lesion of right shoulder, initial encounter Daniel Sanchez MD 01/16/2021 M75.81 Other shoulder lesions, right sybil Sanchez MD 01/16/2021 M19.011 Primary osteoarthritis, right sybil Sanchez MD 01/16/2021 R20.0 Anesthesia of skin Daniel kwon MD 12/20/2020 T18.2xxA Foreign body in stomach, initial encounter Dennis Servin MD 12/20/2020 K31.84 Gastroparesis Dennis Servin MD 11/05/2020 K21.9 Gastro-esophageal reflux disease without esophagitis Zuleika A Derick, [facility] 11/05/2020 R11.2 Nausea with vomiting, unspecifie d Zuleika Sepulveda, [facility] 11/05/2020 K31.84 Gastroparesis Zuleika lino, [facility] 11/05/2020 K59.00 Constipation, unspecified Meliss daphne Pappaskandy, [facility] Plan of Treatment 04/24/2021 - Daniel Sanchez MD* M75.41 Impingement syndrome of right shoulder * G56.01 Carpal tunnel syndrome, right upper limb* Referral:* Angelica Rodriguez M.D., Neurology Functional Status Description No Information Available Mental Status Description No Information Available Referrals Refer to Dr Reason for Referral Status Appt Date Angelica Rodriguez M.D. Already your patient, NCS sh ows polyneuropathy with carpal tunnel syndrome. Is this exclusively from his type 1 diabetes or is there another cause that should be considered or investigated? Sent [facility] Neurology [address] [place] [address], .. [address] [phone] Liban Griffith M.D. NCS shows peripheral neuropa thy, please assess for medical / other treatable causes of the neuropathy Closed 07/15/2021 [facility] Neurology, [address] [address] [phone] Liban Griffith M.D. This 40-year-old man has upp er extremity on the right side decreased sensation to the fingers which last 1-2 hours as well as weakness of the wrist extensors and elbow extensors. Please conduct NCS/EMG to assess for upper extremity radiculopathy. Closed [facility] Neurology, [facility] [place] [address] [phone]"
--- OUTSIDE RECORDS SUMMARY | 2021-06-11 06:10 | CCD | Continuity of Care Document ---
Author Author Panfilo SANCHEZ MD Organization Unknown Address [address] , [facility] [address] [place] [address] Phone [phone] Care Team Providers Care Public Administration Professor Name Role Phone Parker Lyon M.D. AUTM [phone] Daniel Rajan M.D. AUTM [phone] Fidelia Quinonez AUTM [phone] Carmen Emmanuel AUTM [phone] AUTM Unavailable Problems Description No Active Problems Social History Type Date Description Comments Sex Unknown ETOH Use Denies alcohol use Tobacco Use Start: Unknown Non Smoker Recreational Drug Use Denies Drug Use Tobacco Use Start: Unknown Chewing Tobacco 1 can per dayDo ument: 07/20/19 - History-Specialty Surgery Allergies, Adverse Reactions, Alerts Active Allergies Reaction Severity Comments Date Penicillins 09/07/2018 Cefaclor 09/07/2018 Medications Active Medications SIG Qnty Indications Ordering Provide r Date Pantoprazole Sodium 40mg Tablets D R take 1 tablet by mouth twice daily. 60tabs Dennis Servin MD Miralax 3350NF Powder Take 17 grams by [...] Available Vital Signs Date Vital Result Comment 03/10/2021 9:18am Body Temperature 97.8 F 02/06/2021 10:09am BP Systolic 132 mmHg BP Diastolic 82 mmHg Height 70 inches 5'10" Weight 176.00 lb BMI (Body Mass Index) 25.3 kg/m2 [facility] Body Weight 166 lb Weight 79.834 kg BSA (Body Surface Area) 1.98 m2 Results Description No Information Available Procedures Date Code Description Status 03/10/2021 76156 Office/Outpatient Established Mo d MDM 30-39 Min Completed 03/10/202173105 Inject/Drain Arthrocentesis Lisa r Joint/Bursa/Ganglion Cyst Completed 02/06/2021 65795 Office/Outpatient New Moderate M DM 45-59 Minutes Completed 01/16/2021 63818 Office/Outpatient New Moderate M DM 45-59 Minutes Completed 12/20/2020 34482 Endoscopy Upper GI Remove Foreig n Body Completed 11/05/2020 05225 Office/Outpatient Established Mo d MDM 30-39 Min Completed Medical Devices Description No Information Available Encounters Type Date Location Provider Dx Diagnosis Office Visit 03/10/2021 9:15a [facility] Orthopedics Daniel Sanchez MD M75.41 Impingement syndrome of right shoulder G56.01 Carpal tunnel syndrome, righ t upper limb G90.09 Other idiopathic peripheral autonomic neuropathy Office Visit 02/06/2021 10:00a [facility] Gastroenterology [facility] richard To A Derick, RPA-C K21.9 Gastro-esophageal reflux dis ease without esophagitis K31.84 Gastroparesis R11.2 Nausea with vomiting, unspec ified K59.00 Constipation, unspecified Office Visit 01/16/2021 10:00a [facility] Orthopedics Daniel Sanchez MD S43.431A Superior glenoid labrum lesion of right shoulder, init M75.81 Other shoulder lesions, righ t shoulder M19.011 Primary osteoarthritis, righ t shoulder R20.0 Anesthesia of skin Office Visit 11/05/2020 8:30a [facility] ENT Practice Zuleika [place], [facility] K21.9 Gastro-esophageal reflux dis ease without esophagitis R11.2 Nausea with vomiting, unspec ified K31.84 Gastroparesis K59.00 Constipation, unspecified Assessments Date Code Description Provider 03/10/2021 M75.41 Impingement syndrome of right sh sybil Sanchez MD 03/10/2021 G56.01 Carpal tunnel syndrome, right up per limb Daniel Sanchez MD 03/10/2021 G90.09 Other idiopathic peripheral auto nomic neuropathy Daniel Sanchez MD 02/06/2021 K21.9 Gastro-esophageal reflux disease without esophagitis Zuleika A [place], NIKC 02/06/2021 K31.84 Gastroparesis Zuleika A Lorenzo bois, NIKC 02/06/2021 R11.2 Nausea with vomiting, unspecifie d Zuleika A [place], NIKC 02/06/2021 K59.00 Constipation, unspecified Meliss a A Charlebois, [facility] 01/16/2021 S43.431A Superior glenoid lab rum lesion [...] reflux disease without esophagitis Zuleika A [place], NIKC 11/05/2020 R11.2 Nausea with vomiting, unspecifie d Zuleika A [place], NIKC 11/05/2020 K31.84 Gastroparesis [facility]uleika A Lorenzo bois, [facility] 11/05/2020 K59.00 Constipation, unspecified Meliss a A CharleboDARVIN gaitan Plan of Treatment Future Appointment(s):* 04/24/2021 10:45 am - Daniel Sanchez MD at [facility] 03/10/2021 - Daniel Sanchez MD* M75.41 Impingement syndrome of right shoulder * G56.01 Carpal tunnel syndrome, right upper limb* Referral:* Liban Griffith M.D., Surgery,Neurological * G90.09 Other idiopathic peripheral autonomic neuropathy Functional Status Description No Information Available Mental Status Description No Information Available Referrals Refer to Dr Reason for Referral Status Appt Date Liban Griffith M.D. NCS shows peripheral neuropa thy, please assess for medical / other treatable causes of the neuropathy Sent [facility] Neurology, [facility] [place] [address] [phone] Liban Griffith M.D. This 40-year-old man has upp er extremity on the right side decreased sensation to the fingers which last 1-2 hours as well as weakness of the wrist extensors and elbow extensors. Please conduct NCS/EMG to assess for upper extremity radiculopathy. Sent [facility] Neurology, [address] [place] [address] [phone]
--- OUTSIDE RECORDS SUMMARY | 2021-06-11 06:10 | CCD ---
Continuity of Care Document (CCD) Created on: 03/17/2021 Panfilo García External Reference #: [id number] : [id number] Sex: Male Author Author Panfilo AVALOS DPM Organization Unknown Address [address] [facility], [address] [place] [address] Phone [phone] Care Team Providers Care Drawing Hand Name Role Phone MD Carlos Hinojosa AUTM [phone] MD Gene Reddy AUTM [phone] Problems Active Problems Provider Date Type 2 diabetes mellitus with ulcer Bill Avalos DPM Ons et: 12/22/2017 Late effect of traumatic amputation Bill Avalos DPM Ons et: 07/07/2019 Amputated big toe Bill Avalos DPM Onset: 07/07/2019 Type 2 diabetes mellitus with diabetic polyneuropathy Bill Avalos DPM Onset: 05/01/2020 Social History Type Date Description Comments Sex Unknown ETOH Use Denies alcohol use Tobacco Use Start: Unknown End: Unknown Patient is a former smoker Allergies, Adverse Reactions, Alerts Active Allergies Reaction Severity Comments Date Penicillins 12/29/2017 Cephalosporins 12/29/2017 Medications Active Medications SIG Qnty Indications Ordering Provide r Date Ammonium Lactate 12% Cream apply to feet daily 140gm Bill Avalos DPM 01/18/2020 Levaquin 500mg Tablets 1 by mouth twice daily 20tabs Bill Avalos DPM 06/13/2018 Levaquin 500mg Tablets Taqke one tab daily 14tabs Bill Avalos DPM 06/13/2018 Sulfamethoxazole/Trimethoprim DS 800-160mg Tablets 1 tab by mouth twice daily 20tabs Bill mccarty DPM 06/10/2018 Santyl 250Unit/GM Ointment apply to outside wound daily 30units Bill Avalos DPM 018 Clindamycin HCL 300mg Capsules 1 tab by mouth three times a day 30caps Bill Avalos DPM 07/2018 Hydrocodone-Acetaminophen 5-325mg Tablets 1 tablets by mouth every 12 hours as needed for pain 14tabs Bill Avalos DPM 01/25/2018 Immunizations Description No Information Available Vital Signs Description No Information Available Results Description No Information Available Procedures Date Code Description Status 03/07/2021 12924 Paring/Cutting Benign Single Les n Completed 01/02/2021 87326 Office/Outpatient Established SF MDM 10-19 Min Completed 10/21/2020 26481 Office/Outpatient Established SF MDM 10-19 Min Completed Medical Devices Description No Information Available Encounters Type Date Location Provider Dx Diagnosis Office Visit 01/02/2021 8:15a [place] [facility] Bill Avalos DPM M79.672 Pain in left foot L84 Corns and callosities E11.42 Type 2 diabetes mellitus wit h diabetic polyneuropathy Office Visit 10/21/2020 8:45a [place] [facility] Bill Avalos DPM M72.2 Plantar fascial fibromatosis Assessments Date Code Description Provider 03/07/2021 E11.42 Type 2 diabetes mellitus with di abetic polyneuropathy Bill Avalos DPM 03/07/2021 L84 Corns and callosities Bill Avalos DPM 01/02/2021 M79.672 Pain in left foot Bill mccarty DPM 01/02/2021 L84 Corns and callosities Bill Avalos DPM 01/02/2021 E11.42 Type 2 diabetes mellitus with di abetic polyneuropathy Bill Avalos DPM 11/13/2020 M72.2 Plantar fascial fibromatosis And otoniel Avalos DPM 11/13/2020 E11.42 Type 2 diabetes mellitus with di abetic polyneuropathy Bill Avalos DPM 10/21/2020 M72.2 Plantar fascial fibromatosis And otoniel Avalos DPM Plan of Treatment Future Appointment(s):* 06/06/2021 10:45 am - Bill Avalos DPM at [facility] Functional Status Description No Information Available Mental Status Description No Information Available Referrals Description No Information Available
--- OUTSIDE RECORDS SUMMARY | 2021-06-11 06:10 | CCD ---
Author Organization Unknown Address [address] [place] [address] Phone [phone] Care Team Providers Care Data Governance Analyst Name Role Phone TIM NOVAK MD 2 [phone] [facility] 2 [phone] [facility] 2 [phone] MANDO AVALOS MD 2 [phone] JAY PARKER MD 2 [phone] Allergies Code Code System Name Reaction Severity Status Onset Ceclor Active 01/07/2017 Penicillin Active 7 Medications Name Status Start Date Stop Date Admelog U-100 Insulin lispro 100 unit/mL subcutaneous solution USE DIRECTED WITH PUMP MAXIMUM DAILY DOSE 50 UNITS Active Not available ammonium lactate 12 % topical cream Active Not available atorvastatin 20 mg tablet TAKE ONE TABLET BY MOUTH EVERY DAY Active Not available carvedilol 12.5 mg tablet Completed 2019 Contour Next Test Strips Active Not claudio ilable docusate sodium 100 mg capsule TAKE ONE CAPSULE BY MOUTH DAILY Active Not claudio ilable duloxetine 60 mg capsule,delayed release Completed 09/12/2020 ferrous sulfate 325 mg (65 mg iron) tablet Completed 08/07/2020 ferrous sulfate 325 mg (65 mg iron) tablet,delayed release Compl eted 08/07/2020 gabapentin 400 mg capsule Completed 2019 hydrocodone 5 mg-acetaminophen 325 mg ta blet TAKE ONE TABLET BY MOUTH SIX TIMES A DAY NEEDED MAXIMUM DAILY DOSE 6 TABLETS Active Not available linezolid 600 mg tablet Completed 09/12/19 21 metoprolol tartrate 25 mg tablet TAKE ONE TABLET BY MOUTH TWO TIMES A DAY Active Not available Microlet Lancet Active Not available midodrine 10 mg tablet Completed 1 midodrine 5 mg tablet TAKE ONE TABLET BY MOUTH TWICE A DAY Active No t available oxycodone-acetaminophen 5 mg-325 mg tablet Completed 08/07/2020 pantoprazole 20 mg tablet,delayed releas e TAKE ONE TABLET BY MOUTH TWICE A DAY Completed pantoprazole 40 mg tablet,delayed releas e TAKE ONE TABLET BY MOUTH TWICE A DAY Active No t available polyethylene glycol 3350 17 gram/dose or al powder TAKE 17 GRAMS BY MOUTH ONCE DAILY Active Not a vailable pregabalin 150 mg capsule Active Not av ailable pregabalin 75 mg capsule Completed 021 ropinirole 0.25 mg tablet Completed 2020 sulfamethoxazole 800 mg-trimethoprim 160 mg tablet Completed 09/12/2020 venlafaxine ER 37.5 mg capsule,extended release 24 hr Completed 08/07/2020 venlafaxine ER 75 mg capsule,extended re lease 24 hr TAKE ONE CAPSULE BY MOUTH EVERY MORNING AND TAKE ONE CAPSULE BY MOUTH AT BEDTIME NEEDED WHEN MORE NEUROPATHY PAIN IN FEET MAXIMUM DAILY D Active Not available Wrist Brace Medium USE DIRECTED Active Not available Problems Name Status Onset Date Source Hypertensive Disorder Active 01/07/2017 History Ulcer of Foot Due to Type 1 Diabetes Mellitus Active History Kidney Disease Active 01/22/2017 History Erectile Dysfunction Co-occurrent and Due to Arterial Insuff iciency Active 07/22/2017 History Dizziness and Giddiness Active 03/24/2018 History Leukemoid Reaction of the Active 05/06/2018 History Finding of Lower Limb Active 05/06/2018 History Disorder of Nervous System Due to Type 2 Diabetes Mellitus Activ e 06/17/2018 History Chronic Constipation Active 06/17/2018 History Dental Caries on Smooth Surface Penetrating into Pulp Active 08/04/2018 History Disorder by Body Site Active 10/21/2018 History 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 Active 12/22/2018 History Dental Caries on Smooth Surface Penetrating into Dentin Active 01/19/2019 History Seizure Active 01/20/2019 History Neuropathy Active 03/31/2019 History Localized Swelling, Mass and Lump, Neck Active 03/31/20 19 History Cellulitis of Left Lower Limb Active 10/04/2019 Hi story Lumbar Radiculopathy Active 06/12/2020 Pain in Left Lower Limb Active 08/07/2020 Pain of Right Shoulder Joint Active 08/07/2020 Restless Legs Active 09/12/2020 Pain in Finger of Left Hand Active 09/12/2020 Procedures Date Name Performed by 12/14/2006 Surgical Procedure on Eye Proper Using L aser Information not available Endoscopy Information not avai lable Amputation of Toe Notes: left toe Information not available 09/12/2020 XR, Finger(s), 2 or More View [facility] Radiology Dept [address] [place] [address] (Work Place) 10/18/2020 XR, Finger(s), 2 or More View [facility] Radiology Dept [address] [place] [address] (Work Place) 10/18/2020 XR, Shoulder, 2 or More View [facility] Radiology Dept [address] [place] [address] (Work Place) 10/18/2020 XR, Lumbosacral Spine, 2 or 3 View [facility] Radiology Dept [address] [place] [phone] (Work Place) 12/20/2020 MRI, Shoulder, W/wo Contrast [facility] Radiology [address] [place] [address] (Work Place) Notes: Laser eye surgery Dec 14 2016, s sia plate in left ankle and leg, orthoscopic surgery both knees, , L toe amputation, took out steel plate in left foot - due to sepsis | Laser eye surgery Dec 14 2016, steel plate in left ankle and leg, orthoscopic surgery both knees, L foot surgery , L toe amputation, Endoscopy, took out steel plate in left foot - due to sepsis Results Lab Results Date Name Specimen Result Interpretation Description Value Range Status Address 12/23/2020 BMP, Serum or Plasma Blood venous High Glu cose, Fasting 187 mg/dL 70-100 mg/dL [facility] nter: [address] [facility] Blood venous High Blood Urea Nitrogen 20 mg/dL 7-18 mg/dL Final [facility]: [address] [facility] Blood venous Normal Creatinine for GFR 1.27 mg/dL 0.70-1.30 mg/dL Final [facility]: [address] [facility] Blood venous Normal Glomerular Filtration Rate > 60.0 >60 Final [facility]: [address] [facility] Blood venous Low Sodium Level 135 mEq/L 136-14 5 mEq/L Final [facility]: [address] [facility] Blood venous High Potassium Serum 5.2 mEq/L 3.5 -5.1 mEq/L [facility]: [address] [facility] Blood venous Normal Chloride Level 103 mEq/L 98-1 07 mEq/L [facility]: [address] [facility] Blood venous Normal Carbon Dioxide Level 29 mEq/L 21-32 mEq/L [facility]: 0 [facility] Blood venous Low Anion Gap 3 mEq/L 8-16 mEq/L [facility]: 0 [facility] Blood venous Normal Calcium Level 9.8 mg/dL 8.5-1 0.1 mg/dL [facility]: [address] [place] [address] 10/18/2020 Drug Prof Ur Ql (Inc Cannab) Normal Summary fi nal . [facility]: 0 [facility] Past Encounters 03/20/2021 Pain of Right Shoulder Joint; Lumbar Radiculopathy Daniel Rajan MD: [address] [place] [phone], Ph. 01/14/2021 Pain of Right Shoulder Joint Daniel Rajan MD: [address] [place] [phone], Ph. 12/23/2020 Daniel Rajan MD: [address] [place] [phone], Ph. 12/13/2020 Ulcer of Foot Due to Type 1 Diabetes Mellitus; Pain of Right Shoulder Joint; Neuropathy Daniel Rajan MD: [address] [place] [phone], Ph. 10/18/2020 Pain in Finger of Left Hand; Pain of Right Shoulder Joint; Lumbar Radiculopathy Daniel Rajan MD: [address] [place] [phone], Ph. 09/12/2020 Pain in Finger of Left Hand; Restless Legs; Lumbar Radiculopathy Daniel Rajan MD: [address] [place] [phone], Ph. 08/07/2020 Lumbar Radiculopathy; Pain in Left Lower Limb; Pain of Right Shoulder Joint; Ulcer of Foot Due to Type 1 Diabetes Mellitus Daniel Rajan MD: [address] [place] [phone], Ph. 06/12/2020 Lumbar Radiculopathy; Neuropathy; Ulcer of Foot Due to Type 1 Diabetes Mellitus Daniel Rajan MD: [address] [place] [phone], Ph. Social History Tobacco Smoking Status Never Smoker Vaccine List Vaccine Type pneumococcal polysaccharide PPV23 08/12/1997 Notes: Pt declines flu vaccine. Plan of Care Reminders Provider Appointments None recorded. Lab None recorded. Referral None recorded. Procedures None recorded. Surgeries None recorded. Imaging None recorded. Vitals 03/20/2021 11:40AM ESTABLISHED [id number] Height Weight BMI Blood Pressure 70 in 179 lbs 2 oz 25.7 kg/m2 121/85 mm[Hg] 01/14/2021 03:40PM PROVIDER REQUESTED Height Weight BMI Blood Pressure 70 in 180 lbs 25.8 kg/m2 119/77 mm[Hg] 12/23/2020 11:20AM NURSE LAB COLLECTION Height 70 in 12/13/2020 10:40AM ESTABLISHED [id number] Height Weight BMI Blood Pressure 70 in 180 lbs 3.2 oz 25.9 kg/m2 140/82 mm[Hg ] 10/18/2020 09:00AM PROVIDER REQUESTED Height Weight BMI Blood Pressure 70 in 179 lbs 6 oz 25.7 kg/m2 153/99 mm[Hg] 09/12/2020 09:00AM ESTABLISHED [id number] Height Weight BMI Blood Pressure 70 in 175 lbs 4 oz 25.1 kg/m2 126/83 mm[Hg] 08/07/2020 09:20AM ESTABLISHED [id number] Height Weight BMI Blood Pressure 70 in 180 lbs 6 oz 25.9 kg/m2 (1) 153/96 mm[ Hg] (2) 136/89 mm[Hg] 06/12/2020 04:00PM ESTABLISHED [id number] Height Weight BMI Blood Pressure 70 in 181 lbs 8 oz 26 kg/m2 142/96 mm[Hg] 04/24/2020 Height Weight BMI Blood Pressure 70 in 179 lbs 2.08 oz 25.80 kg/m2 157/92 mm[H g] 01/04/2020 Height Weight BMI Blood Pressure 70 in 178 lbs 3.04 oz 25.66 kg/m2 153/100 mm[ Hg] 10/04/2019 Height Weight BMI Blood Pressure 70 in 170 lbs 24.48 kg/m2 147/88 mm[Hg] 07/04/2019 Height Weight BMI Blood Pressure 71 in 169 lbs 23.66 kg/m2 96/60 mm[Hg] 03/31/2019 Height Weight BMI Blood Pressure 71 in 171 lbs 8 oz 24.01 kg/m2 (1) 145/91 mm[ Hg] (2) 138/91 mm[Hg] 01/20/2019 Height Weight BMI Blood Pressure 71 in 176 lbs 24.64 kg/m2 (1) 132/85 mm[H g] (2) 156/85 mm[Hg] 10/21/2018 Height Weight BMI Blood Pressure 71 in 174 lbs 24.36 kg/m2 139/82 mm[Hg] 09/06/2018 Height Weight BMI Blood Pressure 71 in 174 lbs 24.36 kg/m2 116/75 mm[Hg]"
--- OUTSIDE RECORDS SUMMARY | 2021-06-11 06:10 | CCD ---
Author Organization Unknown Address [address] [place] [address] Phone [phone] Care Team Providers Care Shake Table Operator Name Role Phone TIM NOVAK MD 2 [phone] [facility] 2 [phone] [facility] 2 [phone] MANDO AVALOS MD 2 [phone] JAY PARKER MD 2 [phone] Allergies Code Code System Name Reaction Severity Status Onset Ceclor Active 01/07/2017 Penicillin Active 01/07/2017 Medications Name Status Start Date Stop Date Admelog U-100 Insulin lispro 100 unit/mL subcutaneous solution A ctive Not available ammonium lactate 12 % topical cream Active Not available atorvastatin 20 mg tablet Active Not av ailable carvedilol 12.5 mg tablet Completed 2019 ClearLax 17 gram/dose oral powder Active Not available Contour Next Test Strips Active Not claudio ilable docusate sodium 100 mg capsule Active N ot available duloxetine 60 mg capsule,delayed release Completed 09/12/2020 ferrous sulfate 325 mg (65 mg iron) tablet Completed 08/07/2020 ferrous sulfate 325 mg (65 mg iron) tablet,delayed release Compl eted 08/07/2020 gabapentin 400 mg capsule Completed 2019 hydrocodone 5 mg-acetaminophen 325 mg tablet Active Not available linezolid 600 mg tablet Completed 09/12/19 21 metoprolol tartrate 25 mg tablet Active Not available Microlet Lancet Active Not available midodrine 10 mg tablet Completed midodrine 5 mg tablet Active Not availa ble oxycodone-acetaminophen 5 mg-325 mg tablet Completed 08/07/2020 pantoprazole 20 mg tablet,delayed releas e TAKE ONE TABLET BY MOUTH TWICE A DAY Completed pantoprazole 40 mg tablet,delayed release Active Not available pregabalin 150 mg capsule Active Not av ailable pregabalin 75 mg capsule Completed 021 ropinirole 0.25 mg tablet Completed 2020 sulfamethoxazole 800 mg-trimethoprim 160 mg tablet Completed 09/12/2020 venlafaxine ER 37.5 mg capsule,extended release 24 hr Completed 08/07/2020 venlafaxine ER 75 mg capsule,extended release 24 hr Active Not available Wrist Brace Medium USE DIRECTED Active Not available Problems Name Status Onset Date Source Hypertensive Disorder Active 01/07/2017 History Ulcer of Foot Due to Type 1 Diabetes Mellitus Active History Kidney Disease Active 01/22/2017 History Erectile Dysfunction Co-occurrent and Due to Arterial Insuff iciency Active 07/22/2017 History Dizziness and Giddiness Active 03/24/2018 History Leukemoid Reaction of the [place] Active 05/06/2018 History Finding of Lower Limb [...] 09/12/2020 XR, Finger(s), 2 or More View [facility] Radiology Dept [address] [place] [phone] (Work Place) 10/18/2020 XR, Finger(s), 2 or More View [facility] Radiology Dept [address] [place] [phone] (Work Place) 10/18/2020 XR, Shoulder, [address] [facility] Radiology Dept [address] [place] [address] (Work Place) 10/18/2020 XR, Lumbosacral Spine, 2 or 3 [facility] Radiology Dept [address] [place] [address] (Work Place) 12/20/2020 MRI, Shoulder, W/wo Contrast [facility] Radiology [address] [place] [address] (Work Place) 04/17/2021 MRI, Lumbar Spine, W/wo Contrast [facility] Radiology Dept [address] [place] [address] (Work Place) Notes: Laser eye surgery Dec [...] Glu cose, Fasting 187 mg/dL 70-100 mg/dL [facility] nter: [address] [facility] Blood venous High Blood Urea Nitrogen 20 mg/dL 7-18 mg/dL [facility]: [address] [place] [address] Blood venous Normal Creatinine for GFR 1.27 mg/dL 0.70-1.30 mg/dL [facility]: [address] [place] [address] Blood venous Normal Glomerular Filtration Rate > 60.0 >60 [facility]: 0 [facility] Blood venous Low Sodium Level 135 mEq/L 136-14 5 mEq/L [facility]: [address] [place] [address] Blood venous High Potassium Serum 5.2 mEq/L 3.5 -5.1 mEq/L [facility]: 0 [facility] Blood venous Normal Chloride Level 103 mEq/L 98-1 07 mEq/L Final [facility]: [address] [facility] Blood venous Normal Carbon Dioxide Level 29 mEq/L 21-32 mEq/L Final [facility]: [address] [facility] Blood venous Low Anion Gap 3 mEq/L 8-16 mEq/L Final [facility]: [address] [facility] Blood venous Normal Calcium Level 9.8 mg/dL 8.5-1 0.1 mg/dL Final [facility]: [address] [facility] 10/18/2020 Drug Prof Ur Ql (Inc Cannab) Normal Summary fi nal . Final [facility]: [address] [facility] Past Encounters 04/17/2021 Lumbar Radiculopathy Daniel Rajan MD: [address] [place] [phone], Ph. 03/20/2021 Pain of Right Shoulder Joint; Lumbar Radiculopathy Daniel Rajan MD: [address] [place] [phone], Ph. 01/14/2021 Pain of Right Shoulder Joint Daniel Rajan MD: [address] [place] [phone], Ph. 12/23/2020 Daniel Rajan MD: [address] [place] [phone], Ph. 12/13/2020 Ulcer of Foot Due to Type 1 Diabetes Mellitus; Pain of Right Shoulder Joint; Neuropathy Daniel Rajan MD: [address] [place] [phone], Ph. 10/18/2020 Pain in Finger of Left Hand; Pain of Right Shoulder Joint; Lumbar Radiculopathy Daniel Rajan MD: [address] [place] [phone], Ph. 09/12/2020 Pain in Finger of Left Hand; Restless Legs; Lumbar Radiculopathy Daniel Rajan MD: [address] [place] [phone], Ph. 08/07/2020 Lumbar Radiculopathy; Pain in Left Lower Limb; Pain of Right Shoulder Joint; Ulcer of Foot Due to Type 1 Diabetes Mellitus Daniel Rajan MD: [address] [place] [address], Ph. 06/12/2020 Lumbar Radiculopathy; Neuropathy; Ulcer of Foot Due to Type 1 Diabetes Mellitus Daniel Rajan MD: [address] [place] [phone], Ph. Social History Tobacco Smoking Status Never Smoker Vaccine List Vaccine Type pneumococcal polysaccharide PPV23 08/12/1997 Notes: Pt declines flu vaccine. Plan of Care Reminders Provider Appointments None recorded. Lab None recorded. Referral None recorded. Procedures None recorded. Surgeries None recorded. Imaging None recorded. Vitals 04/17/2021 12:40PM PROVIDER DIRECTED FOLLOW-UP 40 Height Weight BMI Blood Pressure 70 in 177 lbs 16 oz 25.5 kg/m2 119/80 mm[Hg] 03/20/2021 11:40AM ESTABLISHED [id number] Height Weight BMI Blood Pressure 70 in 179 lbs 2 oz 25.7 kg/m2 121/85 mm[Hg] 01/14/2021 03:40PM PROVIDER REQUESTED Height Weight BMI Blood Pressure 70 in 180 lbs 25.8 kg/m2 119/77 mm[Hg] 12/23/2020 11:20AM NURSE LAB COLLECTION Height 70 in 12/13/2020 10:40AM ESTABLISHED [id number] Height Weight BMI Blood Pressure 70 in 180 lbs 3.2 oz 25.9 kg/m2 140/82 mm[Hg ] 10/18/2020 09:00AM PROVIDER REQUESTED Height Weight BMI Blood Pressure 70 in 179 lbs 6 oz 25.7 kg/m2 153/99 mm[Hg] 09/12/2020 09:00AM ESTABLISHED [id number] Height Weight BMI Blood Pressure 70 in 175 lbs 4 oz 25.1 kg/m2 126/83 mm[Hg] 08/07/2020 09:20AM ESTABLISHED [id number] Height Weight BMI Blood Pressure 70 in 180 lbs 6 oz 25.9 kg/m2 (1) 153/96 mm[ Hg] (2) 136/89 mm[Hg] 06/12/2020 04:00PM ESTABLISHED [id number] Height Weight BMI Blood Pressure 70 in [...]
--- OUTSIDE RECORDS SUMMARY | 2021-06-11 06:10 | CCD ---
Author Organization Unknown Address [address] [place] [address] Phone [phone] Care Team Providers Care Student Counselor Name Role Phone TIM NOVAK MD 2 [phone] [facility] 2 [phone] [facility] 2 [phone] MANDO AVALOS MD 2 [phone] JAY PARKER MD 2 [phone] Allergies Code Code System Name Reaction Severity [...] ailable carvedilol 12.5 mg tablet Completed 2019 Contour Next Test Strips USE TO TEST 6 TIMES A DAY MAXIMUM DAILY DOSE 6 Active Not available docusate sodium 100 mg capsule Active N [...] A DAY NEEDED MAXIMUM DAILY DOSE 6 Active Not available linezolid 600 mg tablet [...] 40 mg tablet,delayed release Active Not available polyethylene glycol 3350 17 gram/dose oral powder Active Not available pregabalin 150 mg capsule [...] Active 03/24/2018 History Leukemoid Reaction of the [place] Active 05/06/2018 History Finding of Lower Limb Active 05/06/2018 History Disorder of Nervous System Due to Type 2 Diabetes Mellitus Activ e 06/17/2018 History Chronic Constipation Active 06/17/2018 History Dental Caries on Smooth Surface Penetrating into Pulp Active 08/04/2018 History Disorder of Shoulder Active 10/21/2018 History Dental Arch Length Loss [...] 09/12/2020 XR, Finger(s), 2 or More View [facility] Radiology Dept [address] [place] [phone] (Work [address]) 10/18/2020 XR, Finger(s), 2 or More View [facility] Radiology Dept [address] [place] [phone] (Work Place) 10/18/2020 XR, Shoulder, 2 or More View [facility] Radiology Dept [address] [place] [phone] (Work Place) 10/18/2020 XR, Lumbosacral Spine, 2 or 3 View [facility] Radiology Dept [address] [place] [phone] (Work Place) 12/20/2020 MRI, Shoulder, W/wo Contrast [facility] [address] [place] [phone] (Work Place) 04/17/2021 MRI, Lumbar Spine, W/wo Contrast [facility] Radiology Dept [address] [place] [phone] (Work Place) 05/21/2021 MRI, Lumbar Spine, W/wo Contrast [facility] Radiology Dept [address] [place] [phone] (Work Place) Notes: Laser eye surgery Dec [...] Glu cose, Fasting 187 mg/dL 70-100 mg/dL Final [facility] nter: [address] [facility] Blood venous High Blood Urea Nitrogen 20 mg/dL 7-18 mg/dL Final [facility]: [address] [facility] Blood venous Normal Creatinine for GFR 1.27 mg/dL 0.70-1.30 mg/dL [facility]: [address] [facility] Blood venous Normal Glomerular Filtration Rate > 60.0 >60 Final [facility]: [address] [facility] Blood venous Low Sodium Level 135 mEq/L 136-14 5 mEq/L [facility]: [address] [place] [address] Blood venous High Potassium Serum 5.2 mEq/L 3.5 -5.1 mEq/L [facility]: [address] [place] [address] Blood venous Normal Chloride Level 103 mEq/L 98-1 07 mEq/L [facility]: [address] [place] [address] Blood venous Normal Carbon Dioxide Level 29 mEq/L 21-32 mEq/L [facility]: [address] [place] [address] Blood venous Low Anion Gap 3 mEq/L 8-16 mEq/L [facility]: [address] [place] [address] Blood venous Normal Calcium Level 9.8 mg/dL 8.5-1 0.1 mg/dL [facility]: [address] [place] [address] 10/18/2020 Drug Prof Ur Ql (Inc Cannab) Normal Summary fi nal . [facility]: 0 [facility] Past Encounters 05/21/2021 Pain of Right Shoulder Joint; Lumbar Radiculopathy Daniel Rajan MD: [address] [place] [phone], Ph. 04/17/2021 Lumbar Radiculopathy Daniel Rajan MD: [address] [place] [phone], Ph. 03/20/2021 Pain of Right Shoulder Joint; Lumbar Radiculopathy Daniel Rajan MD: [address] [place] [phone], Ph. 01/14/2021 Pain of Right Shoulder Joint Daniel Rajan MD: [address] [place] [phone], Ph. 12/23/2020 Daniel Rajan MD: [address] [place] [phone], Ph. 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 10/18/2020 Pain in Finger of Left Hand; Pain of Right Shoulder Joint; Lumbar Radiculopathy Daniel Rajan MD: [address] [place] [phone], Ph. 09/12/2020 Pain in Finger of Left Hand; Restless Legs; Lumbar Radiculopathy Daniel Rajan MD: [address] [place] [phone], Ph. 08/07/2020 Lumbar Radiculopathy; Pain in Left Lower Limb; Pain of Right Shoulder Joint; Ulcer of Foot Due to Type 1 Diabetes Mellitus Daniel Rajan MD: [address] [place] [phone], Ph. 06/12/2020 Lumbar Radiculopathy; Neuropathy; Ulcer of Foot Due to Type 1 Diabetes Mellitus Daniel Rajan MD: [address] [place] [phone], Ph. Social History Tobacco Smoking Status Never Smoker Vaccine List Vaccine Type pneumococcal polysaccharide PPV23 08/12/1997 Notes: Pt declines flu vaccine. Plan of Care Reminders Provider Appointments None recorded. Lab None recorded. Referral None recorded. Procedures None recorded. Surgeries None recorded. Imaging None recorded. Vitals 05/21/2021 02:00PM MEDICAL CLEARANCE Height Weight BMI Blood Pressure 70 in 181 lbs 16 oz 26.1 kg/m2 (1) 157/91 mm [Hg] (2) 129/86 mm[Hg] 04/17/2021 12:40PM PROVIDER DIRECTED FOLLOW-UP 40 Height Weight BMI Blood Pressure 70 in 177 lbs 16 oz 25.5 kg/m2 119/80 mm[Hg] 03/20/2021 11:40AM ESTABLISHED [id number] Height Weight BMI Blood Pressure 70 in 179 lbs 2 oz 25.7 kg/m2 121/85 mm[Hg] 01/14/2021 03:40PM PROVIDER REQUESTED Height Weight BMI Blood Pressure 70 in 180 lbs 25.8 kg/m2 119/77 mm[Hg] 12/23/2020 11:20AM NURSE LAB COLLECTION Height 70 in 12/13/2020 10:40AM ESTABLISHED [id number] Height Weight BMI Blood Pressure 70 in 180 lbs 3.2 oz 25.9 kg/m2 140/82 mm[Hg ] 10/18/2020 09:00AM PROVIDER REQUESTED Height Weight BMI Blood Pressure 70 in 179 lbs 6 oz 25.7 kg/m2 153/99 mm[Hg] 09/12/2020 09:00AM ESTABLISHED [id number] Height Weight BMI Blood Pressure 70 in 175 lbs 4 oz 25.1 kg/m2 126/83 mm[Hg] 08/07/2020 09:20AM ESTABLISHED [id number] Height Weight BMI Blood Pressure 70 in 180 lbs 6 oz 25.9 kg/m2 (1) 153/96 mm[ Hg] (2) 136/89 mm[Hg] 06/12/2020 04:00PM ESTABLISHED [id number] Height Weight BMI Blood Pressure 70 in [...]
--- OUTSIDE RECORDS SUMMARY | 2021-06-11 06:10 | CCD | Continuity of Care Document ---
Author Author Panfilo SANCHEZ MD Organization Unknown Address [address] , [facility] [address] [place] [address] Phone [phone] Care Team Providers Care Preparer Name Role Phone Parker Lyon M.D. AUTM [phone] Daniel Rajan M.D. AUTM [phone] Fidelia Quinonez AUTM [phone] Carmen Emmanuel AUTM [phone] AUTM Unavailable Problems Description No Active Problems [...] Available Procedures Date Code Description Status 04/24/2021 82296 Office/Outpatient Established Mo d MDM 30-39 Min Completed 03/10/2021 79676 Office/Outpatient Established Mo d MDM 30-39 Min Completed 03/10/2021 16539 Inject/Drain Arthrocentesis Lisa r Joint/Bursa/Ganglion Cyst Completed 02/06/2021 44220 Office/Outpatient New Moderate M DM 45-59 Minutes Completed 01/16/2021 18076 Office/Outpatient New Moderate M DM 45-59 Minutes Completed 12/20/2020 34649 Endoscopy Upper GI Remove Foreig n Body Completed 11/05/2020 44352 Office/Outpatient Established Mo d MDM 30-39 Min Completed Medical Devices Description No Information Available Encounters Type Date Location Provider Dx Diagnosis Office Visit 04/24/2021 10:45a [facility] Orthopedics Daniel Sanchez MD M75.41 Impingement syndrome of right shoulder M24.811 Oth specific joint derangeme nts of right shoulder, NEC G56.01 Carpal tunnel syndrome, righ t upper limb Office Visit 03/10/2021 9:15a [facility] Orthopedics Daniel Sanchez MD M75.41 Impingement syndrome of right shoulder G56.01 Carpal tunnel syndrome, righ t upper limb G90.09 Other idiopathic peripheral autonomic neuropathy Office Visit 02/06/2021 10:00a [facility] Gastroenterology Gela Sepulveda, RPA-C K21.9 Gastro-esophageal reflux dis ease without esophagitis K31.84 Gastroparesis R11.2 Nausea with vomiting, unspec ified K59.00 Constipation, unspecified Office Visit 01/16/2021 10:00a [facility] Orthopedics Daniel Sanchez MD S43.431A Superior glenoid labrum lesion of right shoulder, init M75.81 Other shoulder lesions, righ t shoulder M19.011 Primary osteoarthritis, righ t shoulder R20.0 Anesthesia of skin Office Visit 11/05/2020 8:30a [facility] ENT Practice Zuleika Casiano Derick, [facility] K21.9 Gastro-esophageal reflux dis ease without esophagitis R11.2 Nausea with vomiting, unspec ified K31.84 Gastroparesis K59.00 Constipation, unspecified Assessments Date Code Description Provider 04/24/2021 M75.41 Impingement syndrome of right sh sybil Sanchez MD 04/24/2021 M24.811 Other specific joint derangements of right shoulder, not elsewhere classified Daniel Sanchez MD 04/24/2021 G56.01 Carpal tunnel syndrome, right up per limb Daniel Sanchez MD 03/10/2021 M75.41 Impingement syndrome of right sh sybil Sanchez MD 03/10/2021 G56.01 Carpal tunnel syndrome, right up per limb Daniel Sanchez MD 03/10/2021 G90.09 Other idiopathic peripheral auto nomic neuropathy Daniel Sanchez MD 02/06/2021 K21.9 Gastro-esophageal reflux disease without esophagitis Zuleika A Derick, [facility] 02/06/2021 K31.84 Gastroparesis Zuleika A Lorenzo bokandy, [facility] 02/06/2021 R11.2 Nausea with vomiting, unspecifie d Zuleika A Marionlebokandy, [facility] 02/06/2021 K59.00 Constipation, unspecified Meliss a A Charlebois, [facility] 01/16/2021 S43.431A Superior glenoid lab rum lesion of right shoulder, initial encounter Daniel Sanchez MD 01/16/2021 M75.81 Other shoulder lesions, right sh sybil Sanchez MD 01/16/2021 M19.011 Primary osteoarthritis, right sh sybil Sanchez MD 01/16/2021 R20.0 Anesthesia of skin Daniel kwon MD 12/20/2020 T18.2xxA Foreign body in stomach, initial encounter Dennis Servin MD 12/20/2020 K31.84 Gastroparesis Dennis Servin MD 11/05/2020 K21.9 Gastro-esophageal reflux disease without esophagitis Zuleika Sepulveda, [facility] 11/05/2020 R11.2 Nausea with vomiting, unspecifie d Zuleika Sepulveda, [facility] 11/05/2020 K31.84 Gastroparesis Zuleika lino, [facility] 11/05/2020 K59.00 Constipation, unspecified Meliss daphne Pappaskandy, [facility] Plan of Treatment 04/24/2021 - Daniel Sanchez MD* M75.41 Impingement syndrome of right shoulder * M24.811 Other specific joint derangements of right shoulder, not elsewhere classified * G56.01 Carpal tunnel syndrome, right upper [...] that should be considered or investigated? Sent [facility] Neurology [address] [place] [address], N.. [phone] Liban Griffith M.D. NCS shows peripheral neuropa thy, please assess for medical / other treatable causes of the neuropathy Closed 07/15/2021 [facility], [address] [address] [phone] Liban Griffith M.D. This 40-year-old man has upp er extremity on the right side decreased sensation to the fingers which last 1-2 hours as well as weakness of the wrist extensors and elbow extensors. Please conduct NCS/EMG to assess for upper extremity radiculopathy. Closed [facility], [address] [place], [place] [id number] [phone]"
--- OUTSIDE RECORDS SUMMARY | 2021-06-11 06:12 | CCD ---
Author Author [facility] Organization [facility] Address Unknown Phone Unavailable Care Team Providers Care Health Facilities Surveyor Name Role Phone Juan Pablo Rajan MD Unavailable Unavailable Juan Pablo Rajan MD Unavailable Unavailable Juan Pablo Rajan MD Unavailable Unavailable Juan Pablo Rajan MD Unavailable Unavailable Juan Pablo Rajan MD Unavailable Unavailable Juan Pablo Rajan MD Unavailable Unavailable Juan Pablo Rajan MD Unavailable Unavailable Juan Pablo Rajan MD Unavailable Unavailable Juan Pablo Rajan MD Unavailable Unavailable Juan Pablo Rajan MD Unavailable Unavailable Juan Pablo Rajan MD Unavailable Unavailable Juan Pablo Rajan MD Unavailable Unavailable Juan Pablo Rajan MD Unavailable Unavailable Juan Pablo Rajan MD Unavailable Unavailable Juan Pablo Rajan MD Unavailable Unavailable Juan Pablo Rajan MD Unavailable Unavailable Juan Pablo Rajan MD Unavailable Unavailable Juan Pablo Rajan MD Unavailable Unavailable Juan Pablo Rajan MD Unavailable Unavailable Juan Pablo Rajan MD Unavailable Unavailable Juan Pablo Rajan MD Unavailable Unavailable Juan Pablo Rajan MD Unavailable Unavailable Juan Pablo Rajan MD Unavailable Unavailable Juan Pablo Rajan MD Unavailable Unavailable Juan Pablo Rajan MD Unavailable Unavailable Juan Pablo Rajan MD Unavailable Unavailable Juan Pablo Rajan MD Unavailable Unavailable Juan Pablo Rajan MD Unavailable Unavailable Juan Pablo Rajan MD Unavailable Unavailable Juan Pablo Rajan MD Unavailable Unavailable Juan Pablo Rajan MD Unavailable Unavailable Juan Pablo Rajan MD Unavailable Unavailable Juan Pablo Rajan MD Unavailable Unavailable Juan Pablo Rajan MD Unavailable Unavailable Juan Pablo Rajan MD Unavailable Unavailable Juan Pablo Rajan MD Unavailable Unavailable Juan Pablo Rajan MD Unavailable Unavailable Juan Pablo Rajan MD Unavailable Unavailable Juan Pablo Rajan MD Unavailable Unavailable Juan Pablo Rajan MD Unavailable Unavailable Juan Pablo Rajan MD Unavailable Unavailable Juan Pablo Rajan MD Unavailable Unavailable Juan Pablo Rajan MD Unavailable Unavailable Juan Pablo Rajan MD Unavailable Unavailable Juan Pablo Rajan MD Unavailable Unavailable Juan Pablo Rajan MD Unavailable Unavailable Juan Pablo Rajan MD Unavailable Unavailable Juan Pablo Rajan MD Unavailable Unavailable Juan Pablo Rajan MD Unavailable Unavailable Juan Pablo Rajan MD Unavailable Unavailable Juan Pablo Rajan MD Unavailable Unavailable Juan Pablo Rajan MD Unavailable Unavailable Juan Pablo Rajan MD Unavailable Unavailable Juan Pablo Rajan MD Unavailable Unavailable Juan Pablo Rajan MD Unavailable Unavailable Juan Pablo Rajan MD Unavailable Unavailable Juan Pablo Rajan MD Unavailable Unavailable Juan Pablo Rajan MD Unavailable Unavailable Juan Pablo Rajan MD Unavailable Unavailable Juan Pablo Rajan MD Unavailable Unavailable Juan Pablo Rajan MD Unavailable Unavailable Juan Pablo Rajan MD Unavailable Unavailable Juan Pablo Rajan MD Unavailable Unavailable Juan Pablo Rajan MD Unavailable Unavailable Juan Pablo Rajan MD Unavailable Unavailable Juan Pablo Rajan MD Unavailable Unavailable Juan Pablo Rajan MD Unavailable Unavailable Juan Pablo Rajan MD Unavailable Unavailable Juan Pablo Rajan MD Unavailable Unavailable Juan Pablo Rajan MD Unavailable Unavailable Juan Pablo Rajan MD Unavailable Unavailable Juan Pablo Rajan MD Unavailable Unavailable Juan Pablo Rajan MD Unavailable Unavailable Juan Pablo Rajan MD Unavailable Unavailable Juan Pablo Rajan MD Unavailable Unavailable Juan Pbalo Rajan MD Unavailable Unavailable Juan Pablo Rajan MD Unavailable Unavailable Juan Pablo Rajan MD Unavailable Unavailable Rajan, Juan Pablo Sanchez MD Unavailable Unavailable Rajan, Juan Pablo Sanchez MD Unavailable Unavailable Rajan, Juan Pablo Sanchez MD Unavailable Unavailable Arjan, Juan Pablo Sanchez MD Unavailable Unavailable Rajan, Juan Pablo Sanchez MD Unavailable Unavailable Rajan, Juan Pablo Sanchez MD Unavailable Unavailable Rajan, Juan Pablo Sanchez MD Unavailable Unavailable Rajan, Juan Pablo Sanchez MD Unavailable Unavailable Rajan, Juan Pablo Sanchez MD Unavailable Unavailable Rajan, Juan Pablo Sanchez MD Unavailable Unavailable Rajan, Juan Pablo Sanchez MD Unavailable Unavailable Rajan, Juan Pablo Sanchez MD Unavailable Unavailable Rajan, Juan Pablo Sanchez MD Unavailable Unavailable Rajan, Juan Pablo Sanchez MD Unavailable Unavailable Rajan, Juan Pablo Sanchez MD Unavailable Unavailable Fidelia Quinonez VACCINE SPECIALIST Unavailable Unavailable Charlebois, A Zuleika RPA C Unavailable Unavailable Charlebois, A Zuleika RPA C Unavailable Unavailable Charlebois, A Zuleika RPA C Unavailable Unavailable Charlebois, A Zuleika RPA C Unavailable Unavailable Charlebois, A Zuleika RPA C Unavailable Unavailable Charlebois, A Zuleika RPA C Unavailable Unavailable Charlebois, A Zuleika RPA C Unavailable Unavailable Charlebois, A Zuleika RPA C Unavailable Unavailable Charlebois, A Zuleika RPA C Unavailable Unavailable Charlebois, A Zuleika RPA C Unavailable Unavailable Charlebois, A Zuleika RPA C Unavailable Unavailable Charlebois, A Zuleika RPA C Unavailable Unavailable Charlebois, A Zuleika RPA C Unavailable Unavailable Charlebois, A Zuleika RPA C Unavailable Unavailable Charlebois, A Zuleika RPA C Unavailable Unavailable Charlebois, A Zuleika RPA C Unavailable Unavailable Charlebois, A Zuleika RPA C Unavailable Unavailable Charlebois, A Zuleika RPA C Unavailable Unavailable Charlebois, A Zuleika RPA C Unavailable Unavailable Charlebois, A Zuleika RPA C Unavailable Unavailable Charlebois, A Zuleika RPA C Unavailable Unavailable Charlebois, A Zuleika RPA C Unavailable Unavailable Charlebois, A Zuleika RPA C Unavailable Unavailable Charlebois, A Zuleika RPA C Unavailable Unavailable Charlebois, A Zuleika RPA C Unavailable Unavailable Charlebois, A Zuleika RPA C Unavailable Unavailable Charlebois, A Zuleika RPA C Unavailable Unavailable Charlebois, A Zuleika RPA C Unavailable Unavailable Charlebois, A Zuleika RPA C Unavailable Unavailable Charlebois, A Zuleika RPA C Unavailable Unavailable Charlebois, A Zuleika RPA C Unavailable Unavailable Charlebois, A Zuleika RPA C Unavailable Unavailable Charlebois, A Zuleika RPA C Unavailable Unavailable Mollison, Ying Sanchez MD Unavailable Unavailable Mollison, Ying Sanchez MD Unavailable Unavailable Mollison, Ying Sanchez MD Unavailable Unavailable Mollison, Ying Sanchez MD Unavailable Unavailable Mollison, Ying Sanchez MD Unavailable Unavailable Mollison, Ying Sanchez MD Unavailable Unavailable Mollison, Ying Sanchez MD Unavailable Unavailable Mollison, Ying Sanchez MD Unavailable Unavailable Mollison, Ying Sanchez MD Unavailable Unavailable Mollison, Ying Sanchez MD Unavailable Unavailable Mollison, Ying Sanchez MD Unavailable Unavailable Mollison, Ying Sanchez MD Unavailable Unavailable Mollison, Ying Sanchez MD Unavailable Unavailable Mollison, Ying Sanchez MD Unavailable Unavailable Mollison, Ying Sanchez MD Unavailable Unavailable Mollison, Ying Sanchez MD Unavailable Unavailable Mollison, Ying Sanchez MD Unavailable Unavailable Mollison, Ying Sanchez MD Unavailable Unavailable Mollison, Ying Sanchez MD Unavailable Unavailable Mollison, Ying Sanchez MD Unavailable Unavailable Mollison, Ying Sanchez MD Unavailable Unavailable Mollison, Ying Sanchez MD Unavailable Unavailable Mollison, Ying Sanchez MD Unavailable Unavailable Mollison, Ying Sanchez MD Unavailable Unavailable Mollison, Ying Sanchez MD Unavailable Unavailable Mollison, Ying Sanchez MD Unavailable Unavailable Mollison, Ying Sanchez MD Unavailable Unavailable Mollison, Ying Sanchez MD Unavailable Unavailable Mollison, Ying Sanchez MD Unavailable Unavailable Mollison, Ying Sanchez MD Unavailable Unavailable MAJAK, R MANDO DPM Unavailable Unavailable MAJAK, R MANDO DPM Unavailable Unavailable MAJAK, R MANDO DPM Unavailable Unavailable MAJAK, R MANDO DPM Unavailable Unavailable MAJAK, R MANDO DPM Unavailable Unavailable MAJAK, R MANDO DPM Unavailable Unavailable MAJAK, R MANDO DPM Unavailable Unavailable MAJAK, R MANDO DPM Unavailable Unavailable MAJAK, R MANDO DPM Unavailable Unavailable MAJAK, R MANDO DPM Unavailable Unavailable MAJAK, R MANDO DPM Unavailable Unavailable MAJAK, R MANDO DPM Unavailable Unavailable MAJAK, R MANDO DPM Unavailable Unavailable MAJAK, R MANDO DPM Unavailable Unavailable MAJAK, R MANDO DPM Unavailable Unavailable MAJAK, R MANDO DPM Unavailable Unavailable MAJAK, R MANDO DPM Unavailable Unavailable MAJAK, R MANDO DPM Unavailable Unavailable MAJAK, R MANDO DPM Unavailable Unavailable MAJAK, R MANDO DPM Unavailable Unavailable MAJAK, R MANDO DPM Unavailable Unavailable MAJAK, R MANDO DPM Unavailable Unavailable MAJAK, R MANDO DPM Unavailable Unavailable MAJAK, R MANDO DPM Unavailable Unavailable MAJAK, R MANDO DPM Unavailable Unavailable MAJAK, R MANDO DPM Unavailable Unavailable MAJAK, R MANDO DPM Unavailable Unavailable MAJAK, R MANDO DPM Unavailable Unavailable MAJAK, R MANDO DPM Unavailable Unavailable MAJAK, R MANDO DPM Unavailable Unavailable MAJAK, R MANDO DPM Unavailable Unavailable DINORA MEADOWS MD Unavailable Unavailable DINORA MEADOWS MD Unavailable Unavailable DINORA MEADOWS MD Unavailable Unavailable DINORA MEADOWS MD Unavailable Unavailable Juan Pablo Rajan MD Unavailable Unavailable Juan Pablo Rajan MD Unavailable Unavailable Juan Pablo Rajan MD Unavailable Unavailable Juan Pablo Rajan MD Unavailable Unavailable Juan Pablo Rajan MD Unavailable Unavailable Juan Pablo Rajan MD Unavailable Unavailable Juan Pablo Rajan MD Unavailable Unavailable Juan Pablo Rajan MD Unavailable Unavailable Juan Pablo Rajan MD Unavailable Unavailable Juan Pablo Rajan MD Unavailable Unavailable Juan Pablo Rajan MD Unavailable Unavailable Juan Pablo Rajan MD Unavailable Unavailable Juan Pablo Rajan MD Unavailable Unavailable Juan Pablo Rajan MD Unavailable Unavailable Juan Pablo Rajan MD Unavailable Unavailable Juan Pablo Rajan MD Unavailable Unavailable Juan Pablo Rajan MD Unavailable Unavailable Juan Pablo Rajan MD Unavailable Unavailable Juan Pablo Rajan MD Unavailable Unavailable Juan Pablo Rajan MD Unavailable Unavailable Juan Pablo Rajan MD Unavailable Unavailable Juan Pablo Rajan MD Unavailable Unavailable Juan Pablo Rajan MD Unavailable Unavailable Juan Pablo Rajan MD Unavailable Unavailable Juan Pablo Rajan MD Unavailable Unavailable Juan Pablo Rajan MD Unavailable Unavailable Juan Pablo Rajan MD Unavailable Unavailable Juan Pablo Rajan MD Unavailable Unavailable Juan Pablo Rajan MD Unavailable Unavailable Juan Pablo Rajan MD Unavailable Unavailable Juan Pablo Rajan MD Unavailable Unavailable Juan Pablo Rajan MD Unavailable Unavailable Juan Pablo Rajan MD Unavailable Unavailable Juan Pablo Rajan MD Unavailable Unavailable Juan Pablo Rajan MD Unavailable Unavailable Juan Pablo Rajan MD Unavailable Unavailable Juan Pablo Rajan MD Unavailable Unavailable Juan Pablo Rajan MD Unavailable Unavailable Juan Pablo Rajan MD Unavailable Unavailable Juan Pablo Rajan MD Unavailable Unavailable Juan Pablo Rajan MD Unavailable Unavailable Juan Pablo Rajan MD Unavailable Unavailable Juan Pablo Rajan MD Unavailable Unavailable Juan Pablo Rajan MD Unavailable Unavailable Juan Pablo Rjaan MD Unavailable Unavailable Juan Pablo Rajan MD Unavailable Unavailable Juan Pablo Rajan MD Unavailable Unavailable Juan Pablo Rajan MD Unavailable Unavailable Juan Pablo Rajan MD Unavailable Unavailable Juan Pablo Rajan MD Unavailable Unavailable Juan Pablo Rajan MD Unavailable Unavailable Juan Pablo Rajan MD Unavailable Unavailable Juan Pablo Rajan MD Unavailable Unavailable Juan Pablo Rajan MD Unavailable Unavailable Juan Pablo Rajan MD Unavailable Unavailable Juan Pablo Rajan MD Unavailable Unavailable Juan Pablo Rajan MD Unavailable Unavailable Juan Pablo Rajan MD Unavailable Unavailable Juan Pablo Rajan MD Unavailable Unavailable Juan Pablo Rajan MD Unavailable Unavailable Juan Pablo Rajan MD Unavailable Unavailable Juan Pablo Rajan MD Unavailable Unavailable Juan Pablo Rajan MD Unavailable Unavailable Juan Pablo Rajan MD Unavailable Unavailable Juan Pablo Rajan MD Unavailable Unavailable Juan Pablo Rajan MD Unavailable Unavailable Juan Pablo Rajna MD Unavailable Unavailable Juan Pablo Rajan MD Unavailable Unavailable Juan Pablo Rajan MD Unavailable Unavailable Juan Pablo Rajan MD Unavailable Unavailable Juan Pablo Rajan MD Unavailable Unavailable Juan Pablo Rajan MD Unavailable Unavailable Juan Pablo Rajan MD Unavailable Unavailable Juan Pablo Rajan MD Unavailable Unavailable Juan Pablo Rajan MD Unavailable Unavailable Juan Pablo Rajan MD Unavailable Unavailable Juan Pablo Rajan MD Unavailable Unavailable Juan Pablo Rajan MD Unavailable Unavailable Juan Pablo Rajan MD Unavailable Unavailable Juan Pablo Rajan MD Unavailable Unavailable Juan Pablo Rajan MD Unavailable Unavailable Juan Pablo Rajan MD Unavailable Unavailable Juan Pablo Rajan MD Unavailable Unavailable Juan Pablo Rajan MD Unavailable Unavailable Juan Pablo Rajan MD Unavailable Unavailable Juan Pablo Rajan MD Unavailable Unavailable Juan Pablo Rajan MD Unavailable Unavailable Juan Pablo Rajan MD Unavailable Unavailable Juan Pablo Rajan MD Unavailable Unavailable Juan Pablo Rajan MD Unavailable Unavailable Juan Pablo Rajan MD Unavailable Unavailable Juan Pablo Rajan MD Unavailable Unavailable Juan Pablo Rajan MD Unavailable Unavailable Angelica Rodriguez MD Unavailable Unavailable Angelica Rodriguez MD Unavailable Unavailable Angelica Rodriguez MD Unavailable Unavailable Angelica Rodriguez MD Unavailable Unavailable Angelica Rodriguez MD Unavailable Unavailable Angelica Rodriguez MD Unavailable Unavailable Angelica Rodriguez MD Unavailable Unavailable Angelica Rodriguez MD Unavailable Unavailable Angelica Rodriguez MD Unavailable Unavailable Angelica Rodriguez MD Unavailable Unavailable Angelica Rodriguez MD Unavailable Unavailable Angelica Rodriguez MD Unavailable Unavailable Angelica Rodriguez MD Unavailable Unavailable Angelica Rodriguez MD Unavailable Unavailable Angelica Rodriguez MD Unavailable Unavailable Angelica Rodriguez MD Unavailable Unavailable Angelica Rodriguez MD Unavailable Unavailable Angelica Rodriguez MD Unavailable Unavailable Angelica Rodriguez MD Unavailable Unavailable Angelica Rodriguez MD Unavailable Unavailable Angelica Rodriguez MD Unavailable Unavailable Angelica Rodriguez MD Unavailable Unavailable Angelica Rodriguez MD Unavailable Unavailable Angelica Rodriguez MD Unavailable Unavailable Angelica Rodriguez MD Unavailable Unavailable Angelica Rodriguez MD Unavailable Unavailable Angelica Rodriguez MD Unavailable Unavailable Angelica Rodriguez MD Unavailable Unavailable Angelica Rodriguez MD Unavailable Unavailable Angelica Rodriguez MD Unavailable Unavailable Angelica Rodriguez MD Unavailable Unavailable Angelica Rodriguez MD Unavailable Unavailable Angelica Rodriguez MD Unavailable Unavailable Angelica Rodriguez MD Unavailable Unavailable Angelica Rodriguez MD Unavailable Unavailable Angelica Rodriguez MD Unavailable Unavailable Angelica Rodriguez MD Unavailable Unavailable Angelica Rodriguez MD Unavailable Unavailable Angelica Rodriguez MD Unavailable Unavailable Angelica Rodriguez MD Unavailable Unavailable Angelica Rodriguez MD Unavailable Unavailable Angelica Rodriguez MD Unavailable Unavailable Angelica Rodriguez MD Unavailable Unavailable Angelica Rodriguez MD Unavailable Unavailable Angelica Rodriguez MD Unavailable Unavailable Angelica Rodriguez MD Unavailable Unavailable Angelica Rodriguez MD Unavailable Unavailable Angelica Rodriguez MD Unavailable Unavailable Angelica Rodriguez MD Unavailable Unavailable Angelica Rodriguez MD Unavailable Unavailable LOLY, B ERLINDA GUEST SERVICES ASSOCIATE Unavailable Unavailable LOLY, B ERLINDA GUEST SERVICES ASSOCIATE Unavailable Unavailable LOLY, B ERLINDA GUEST SERVICES ASSOCIATE Unavailable Unavailable LOLY, B ERLINDA GUEST SERVICES ASSOCIATE Unavailable Unavailable LOLY, B ERLINDA GUEST SERVICES ASSOCIATE Unavailable Unavailable LOLY, B ERLINDA GUEST SERVICES ASSOCIATE Unavailable Unavailable LOLY, B ERLINDA GUEST SERVICES ASSOCIATE Unavailable Unavailable LOLY, B ERLINDA GUEST SERVICES ASSOCIATE Unavailable Unavailable LOLY, B ERLINDA GUEST SERVICES ASSOCIATE Unavailable Unavailable LOLY, B ERLINDA GUEST SERVICES ASSOCIATE Unavailable Unavailable LOLY, B ERLINDA GUEST SERVICES ASSOCIATE Unavailable Unavailable LOLY, B ERLINDA GUEST SERVICES ASSOCIATE Unavailable Unavailable LOLY, B ERLINDA GUEST SERVICES ASSOCIATE Unavailable Unavailable LOLY, B ERLINDA GUEST SERVICES ASSOCIATE Unavailable Unavailable LOLY, B ERLINDA GUEST SERVICES ASSOCIATE Unavailable Unavailable LOLY, B ERLINDA GUEST SERVICES ASSOCIATE Unavailable Unavailable LOLY, B ERLINDA GUEST SERVICES ASSOCIATE Unavailable Unavailable LOLY, B ERLINDA GUEST SERVICES ASSOCIATE Unavailable Unavailable LOLY, B ERLINDA GUEST SERVICES ASSOCIATE Unavailable Unavailable LOLY, B ERLINDA GUEST SERVICES ASSOCIATE Unavailable Unavailable LOLY, B ERLINDA GUEST SERVICES ASSOCIATE Unavailable Unavailable LOLY, B ERLINDA GUEST SERVICES ASSOCIATE Unavailable Unavailable LOLY, B ERLINDA GUEST SERVICES ASSOCIATE Unavailable Unavailable LOLY, B ERLINDA GUEST SERVICES ASSOCIATE Unavailable Unavailable LOLY, B ERLINAD GUEST SERVICES ASSOCIATE Unavailable Unavailable LOLY, B ERLINDA GUEST SERVICES ASSOCIATE Unavailable Unavailable LOLY, B ERLINDA GUEST SERVICES ASSOCIATE Unavailable Unavailable LOLY, B ERLINDA GUEST SERVICES ASSOCIATE Unavailable Unavailable LOLY, B ERLINDA GUEST SERVICES ASSOCIATE Unavailable Unavailable LOLY, B ERLINDA GUEST SERVICES ASSOCIATE Unavailable Unavailable LOLY, B ERLINDA GUEST SERVICES ASSOCIATE Unavailable Unavailable LOLY, B ERLINDA GUEST SERVICES ASSOCIATE Unavailable Unavailable LOLY, B ERLINDA GUEST SERVICES ASSOCIATE Unavailable Unavailable LOLY, B ERLINDA GUEST SERVICES ASSOCIATE Unavailable Unavailable LOLY, B ERLINDA GUEST SERVICES ASSOCIATE Unavailable Unavailable LOLY, B ERLINDA GUEST SERVICES ASSOCIATE Unavailable Unavailable LOLY, B ERLINDA GUEST SERVICES ASSOCIATE Unavailable Unavailable LOLY, B ERLINDA GUEST SERVICES ASSOCIATE Unavailable Unavailable LOLY, B ERLINDA GUEST SERVICES ASSOCIATE Unavailable Unavailable LOLY, B ERLINDA GUEST SERVICES ASSOCIATE Unavailable Unavailable LOLY, B ERLINDA GUEST SERVICES ASSOCIATE Unavailable Unavailable LOLY, B ERLINDA GUEST SERVICES ASSOCIATE Unavailable Unavailable LOLY, B ERLINDA GUEST SERVICES ASSOCIATE Unavailable Unavailable LOLY, B ERLINDA GUEST SERVICES ASSOCIATE Unavailable Unavailable LOLY, B ERLINDA GUEST SERVICES ASSOCIATE Unavailable Unavailable LOLY, B ERLINDA GUEST SERVICES ASSOCIATE Unavailable Unavailable LOLY, B ERLINDA GUEST SERVICES ASSOCIATE Unavailable Unavailable LOLY, B ERLINDA GUEST SERVICES ASSOCIATE Unavailable Unavailable LOLY, B ERLINDA GUEST SERVICES ASSOCIATE Unavailable Unavailable LOLY, B ERLINDA GUEST SERVICES ASSOCIATE Unavailable Unavailable LOLY, B ERLINDA GUEST SERVICES ASSOCIATE Unavailable Unavailable LOLY, B ERLINDA GUEST SERVICES ASSOCIATE Unavailable Unavailable LOLY, B ERLINDA GUEST SERVICES ASSOCIATE Unavailable Unavailable LOLY, B ERLINDA GUEST SERVICES ASSOCIATE Unavailable Unavailable LOLY, B ERLINDA GUEST SERVICES ASSOCIATE Unavailable Unavailable LOLY, B ERLINDA GUEST SERVICES ASSOCIATE Unavailable Unavailable LOLY, B ERLINDA GUEST SERVICES ASSOCIATE Unavailable Unavailable LOLY, B ERLINDA GUEST SERVICES ASSOCIATE Unavailable Unavailable LOLY, B ERLINDA GUEST SERVICES ASSOCIATE Unavailable Unavailable LOLY, B ERLINDA GUEST SERVICES ASSOCIATE Unavailable Unavailable LOLY, B ERLINDA GUEST SERVICES ASSOCIATE Unavailable Unavailable LOLY, B ERLINDA GUEST SERVICES ASSOCIATE Unavailable Unavailable Fons, M Esdras VACCINE SPECIALIST Unavailable Unavailable Fons, M Esdras VACCINE SPECIALIST Unavailable Unavailable Fons, M Esdras VACCINE SPECIALIST Unavailable Unavailable Fons, M Esdras VACCINE SPECIALIST Unavailable Unavailable Fons, M Esdras VACCINE SPECIALIST Unavailable Unavailable Fons, M Esdras VACCINE SPECIALIST Unavailable Unavailable Fons, M Esdras VACCINE SPECIALIST Unavailable Unavailable Fons, M Esdras VACCINE SPECIALIST Unavailable Unavailable Fons, M Esdras VACCINE SPECIALIST Unavailable Unavailable Fons, M Esdras VACCINE SPECIALIST Unavailable Unavailable Fons, M Esdras VACCINE SPECIALIST Unavailable Unavailable Fons, M Esdras VACCINE SPECIALIST Unavailable Unavailable Fons, M Esdras VACCINE SPECIALIST Unavailable Unavailable Fons, M Esdras VACCINE SPECIALIST Unavailable Unavailable Fons, M Esdras VACCINE SPECIALIST Unavailable Unavailable Fons, M Esdras VACCINE SPECIALIST Unavailable Unavailable Fons, M Esdras VACCINE SPECIALIST Unavailable Unavailable Fons, M Esdras VACCINE SPECIALIST Unavailable Unavailable Fons, M Esdras VACCINE SPECIALIST Unavailable Unavailable Fons, M Esdras VACCINE SPECIALIST Unavailable Unavailable Fons, M Esdras VACCINE SPECIALIST Unavailable Unavailable Fons, M Esdras VACCINE SPECIALIST Unavailable Unavailable Fons, M Esdras VACCINE SPECIALIST Unavailable Unavailable Fons, M Esdras VACCINE SPECIALIST Unavailable Unavailable Fons, M Esdras VACCINE SPECIALIST Unavailable Unavailable Fons, M Esdras VACCINE SPECIALIST Unavailable Unavailable Fons, M Esdras VACCINE SPECIALIST Unavailable Unavailable Fons, M Esdras VACCINE SPECIALIST Unavailable Unavailable Fons, M Esdras VACCINE SPECIALIST Unavailable Unavailable Fons, M Esdras VACCINE SPECIALIST Unavailable Unavailable Fons, M Esdras VACCINE SPECIALIST Unavailable Unavailable Fons, M Esdras VACCINE SPECIALIST Unavailable Unavailable Fons, M Esdras VACCINE SPECIALIST Unavailable Unavailable Fons, M Esdras VACCINE SPECIALIST Unavailable Unavailable Fons, M Esdras VACCINE SPECIALIST Unavailable Unavailable Fons, M Esdras VACCINE SPECIALIST Unavailable Unavailable Fons, M Esdras VACCINE SPECIALIST Unavailable Unavailable Fons, M Esdras VACCINE SPECIALIST Unavailable Unavailable Fons, M Esdras VACCINE SPECIALIST Unavailable Unavailable Fons, M Esdras VACCINE SPECIALIST Unavailable Unavailable Fons, M Esdras VACCINE SPECIALIST Unavailable Unavailable Fons, M Esdras VACCINE SPECIALIST Unavailable Unavailable Fons, M Esdras VACCINE SPECIALIST Unavailable Unavailable Fons, M Esdras VACCINE SPECIALIST Unavailable Unavailable Fons, M Esdras VACCINE SPECIALIST Unavailable Unavailable Fons, M Esdras VACCINE SPECIALIST Unavailable Unavailable Fons, M Esdras VACCINE SPECIALIST Unavailable Unavailable Fons, M Esdras VACCINE SPECIALIST Unavailable Unavailable Fons, M Esdras VACCINE SPECIALIST Unavailable Unavailable Fons, M Esdras VACCINE SPECIALIST Unavailable Unavailable Fons, M Esdras VACCINE SPECIALIST Unavailable Unavailable Fons, M Esdras VACCINE SPECIALIST Unavailable Unavailable Fons, M Esdras VACCINE SPECIALIST Unavailable Unavailable Carl Wilkins MD Unavailable Unavailable Carl Wilkins MD Unavailable Unavailable Carl Wilkins MD Unavailable Unavailable Carl Wilkins MD Unavailable Unavailable Carl Wilkins MD Unavailable Unavailable Carl Wilkins MD Unavailable Unavailable Carl Wilkins MD Unavailable Unavailable Carl Wilkins MD Unavailable Unavailable Carl Wilkins MD Unavailable Unavailable Carl Wilkins MD Unavailable Unavailable Carl Wilkins MD Unavailable Unavailable Carl Wilkins MD Unavailable Unavailable Carl Wilkins MD Unavailable Unavailable Carl Wilkins MD Unavailable Unavailable Carl Wilkins MD Unavailable Unavailable Carl Wilkins MD Unavailable Unavailable Carl Wilkins MD Unavailable Unavailable Carl Wilkins MD Unavailable Unavailable Carl Wilkins MD Unavailable Unavailable Carl Wilkins MD Unavailable Unavailable Carl Wilkins MD Unavailable Unavailable Carl Wilkins MD Unavailable Unavailable Carl Wilkins MD Unavailable Unavailable Carl Wilkins MD Unavailable Unavailable Carl Wilkins MD Unavailable Unavailable aCrl Wilkins MD Unavailable Unavailable Carl Wilkins MD Unavailable Unavailable Carl Wilkins MD Unavailable Unavailable Carl Wilkins MD Unavailable Unavailable Carl Wilkins MD Unavailable Unavailable Carl Wilkins MD Unavailable Unavailable Carl Wilkins MD Unavailable Unavailable Carl Wilkins MD Unavailable Unavailable Carl Wilkins MD Unavailable Unavailable Carl Wilkins MD Unavailable Unavailable Carl Wilkins MD Unavailable Unavailable Carl Wilkins MD Unavailable Unavailable Fish B Vicki ROSE Unavailable Unavailable Fish B Vicki ROSE Unavailable Unavailable Fish, B Vicki ROSE Unavailable Unavailable Fish, B Vicki ROSE Unavailable Unavailable Fish, B Vicki ROSE Unavailable Unavailable Fish, B Vicki ROSE Unavailable Unavailable Fish, B Vicki ROSE Unavailable Unavailable Fish, B Vicki ROSE Unavailable Unavailable Fish, B Vicki ROSE Unavailable Unavailable Fish, B Vicki ROSE Unavailable Unavailable Fish, B Vicki ROSE Unavailable Unavailable Fish, B Vicki ROSE Unavailable Unavailable Fish, B Vicki ROSE Unavailable Unavailable Fish, B Vicki ROSE Unavailable Unavailable Fish, B Vicki ROSE Unavailable Unavailable Fish, B Vicki ROSE Unavailable Unavailable Fish, B Vicki ROSE Unavailable Unavailable Fish, B Vicki ROSE Unavailable Unavailable Fish, B Vicki ROSE Unavailable Unavailable Fish, B Vicki ROSE Unavailable Unavailable Fish, B Vicki ROSE Unavailable Unavailable Fish, B Vicki ROSE Unavailable Unavailable Fish, B Vicki ROSE Unavailable Unavailable Fish, B Vicki ROSE Unavailable Unavailable Fish, B Vicki ROSE Unavailable Unavailable Fish, B Vicki ROSE Unavailable Unavailable Fish, B Vicki ROSE Unavailable Unavailable Fish, B Vicki ROSE Unavailable Unavailable Reyes, L Jodie PA Unavailable Unavailable Reyes, L Jodie PA Unavailable Unavailable Reyes, L Jodie PA Unavailable Unavailable Reyes, L Jodie PA Unavailable Unavailable Reyes, L Jodie PA Unavailable Unavailable Reyes, L Jodie PA Unavailable Unavailable Reyes, L Jodie PA Unavailable Unavailable Reyes, L Jodie PA Unavailable Unavailable Reyes, L Jodie PA Unavailable Unavailable Reyes, L Jodie PA Unavailable Unavailable Reyes, L Jodie PA Unavailable Unavailable Reyes, L Jodie PA Unavailable Unavailable Reyes, L Jodie PA Unavailable Unavailable Reyes, L Jodie PA Unavailable Unavailable Reyes, L Jodie PA Unavailable Unavailable Reyes, L Jodie PA Unavailable Unavailable Reyes, L Jodie PA Unavailable Unavailable Reyes, L Jodie PA Unavailable Unavailable Reyes, L Jodie PA Unavailable Unavailable Reyes, L Jodie PA Unavailable Unavailable Reyes, L Jodie PA Unavailable Unavailable Reyes, L Jodie PA Unavailable Unavailable Reyes, L Jodie PA Unavailable Unavailable Reyes, L Jodie PA Unavailable Unavailable Reyes, L Jodie PA Unavailable Unavailable Reyes, L Jodie PA Unavailable Unavailable Reyes, L Jodie PA Unavailable Unavailable Reyes, L Jodie PA Unavailable Unavailable Reyes, L Jodie PA Unavailable Unavailable Reyes, L Ojdie PA Unavailable Unavailable Reyes, L Jodie PA Unavailable Unavailable Reyes, L Jodie PA Unavailable Unavailable Reyes, L Jodie PA Unavailable Unavailable Reyes, L Jodie PA Unavailable Unavailable Reyes, L Jodie PA Unavailable Unavailable Reyes, L Jodie PA Unavailable Unavailable Reyes, L Jodie PA Unavailable Unavailable Reyes, L Jodie PA Unavailable Unavailable Reyes, L Jodie PA Unavailable Unavailable Juan Pablo Rajan MD Unavailable Unavailable Juan Pablo Rajan MD Unavailable Unavailable Juan Pablo Rajan MD Unavailable Unavailable Juan Pablo Rajan MD Unavailable Unavailable Juan Pablo Rajan MD Unavailable Unavailable Juan Pablo Rajan MD Unavailable Unavailable Juan Pablo Rajan MD Unavailable Unavailable Juan Pablo Rajan MD Unavailable Unavailable Juan Pablo Rajan MD Unavailable Unavailable Juan Pablo Rajan MD Unavailable Unavailable Juan Pablo Rajan MD Unavailable Unavailable Juan Pablo Rajan MD Unavailable Unavailable Juan Pablo Rajan MD Unavailable Unavailable Juan Pablo Rajan MD Unavailable Unavailable Juan Pablo Rajan MD Unavailable Unavailable Juan Pablo Rajan MD Unavailable Unavailable Juan Pablo Rajan MD Unavailable Unavailable Juan Pablo Rajan MD Unavailable Unavailable Juan Pablo Rajan MD Unavailable Unavailable Juan Pablo Rajan MD Unavailable Unavailable Juan Pablo Rajan MD Unavailable Unavailable Juan Pablo Rajan MD Unavailable Unavailable Juan Pablo Rajan MD Unavailable Unavailable Juan Pablo Rajan MD Unavailable Unavailable Juan Pablo Rajan MD Unavailable Unavailable Juan Pablo Rajan MD Unavailable Unavailable Juan Pablo Rajan MD Unavailable Unavailable Juan Pablo Rajan MD Unavailable Unavailable Juan Pablo Rajan MD Unavailable Unavailable Juan Pablo Rajan MD Unavailable Unavailable Juan Pablo Rajan MD Unavailable Unavailable Juan Pablo Rajan MD Unavailable Unavailable Juan Pablo Rajan MD Unavailable Unavailable Juan Pablo Rajan MD Unavailable Unavailable Juan Pablo Rajan MD Unavailable Unavailable Juan Pablo Rajan MD Unavailable Unavailable Juan Pablo Rajan MD Unavailable Unavailable Juan Pablo Rajan MD Unavailable Unavailable Juan Pablo Rajan MD Unavailable Unavailable Juan Pablo Rajan MD Unavailable Unavailable Juan Pablo Rajan MD Unavailable Unavailable Juan Pablo Rajan MD Unavailable Unavailable Juan Pablo Rajan MD Unavailable Unavailable Juan Pablo Rajan MD Unavailable Unavailable Juan Pablo Rajan MD Unavailable Unavailable Juan Pablo Rajan MD Unavailable Unavailable Juan Pablo Rajan MD Unavailable Unavailable Juan Pablo Rajan MD Unavailable Unavailable Juan Pablo Rajan MD Unavailable Unavailable Juan Pablo Rajan MD Unavailable Unavailable Juan Pablo Rajan MD Unavailable Unavailable Juan Pablo Rajan MD Unavailable Unavailable Juan Pablo Rajan MD Unavailable Unavailable Juan Pablo Rajan MD Unavailable Unavailable Juan Pablo Rajan MD Unavailable Unavailable Juan Pablo Rajan MD Unavailable Unavailable Juan Pablo Rajan MD Unavailable Unavailable Juan Pablo Rajan MD Unavailable Unavailable Juan Pablo Rajan MD Unavailable Unavailable Juan Pablo Rajan MD Unavailable Unavailable Juan Pablo Rajan MD Unavailable Unavailable Juan Pablo Rajan MD Unavailable Unavailable Juan Pablo Rajan MD Unavailable Unavailable Juan Pablo Rajan MD Unavailable Unavailable RajanJuan Pablo MD Unavailable Unavailable Juan Pablo Rajan MD Unavailable Unavailable Juan Pablo Rajan MD Unavailable Unavailable Juan Pablo Rajan MD Unavailable Unavailable Juan Pablo Rajan MD Unavailable Unavailable Juan Pablo Rajan MD Unavailable Unavailable Juan Pablo Rajan MD Unavailable Unavailable Juan Pablo Rajan MD Unavailable Unavailable Juan Pablo Rajan MD Unavailable Unavailable RajanJuan Pablo MD Unavailable Unavailable Juan Pablo Rajan MD Unavailable Unavailable Juan Pablo Rajan MD Unavailable Unavailable Juan Pablo Rajan MD Unavailable Unavailable Juan Pablo Rajan MD Unavailable Unavailable Juan Pablo Rajan MD Unavailable Unavailable Juan Pablo Rajan MD Unavailable Unavailable Juan Pablo Rajan MD Unavailable Unavailable Juan Pablo Rajan MD Unavailable Unavailable Juan Pablo Rajan MD Unavailable Unavailable Juan Pablo Rajan MD Unavailable Unavailable Juan Pablo Rajan MD Unavailable Unavailable Juan Pablo Rajan MD Unavailable Unavailable Juan Pablo Rajan MD Unavailable Unavailable Juan Pablo Rajan MD Unavailable Unavailable Juan Pablo Rajan MD Unavailable Unavailable Juan Pablo Rajan MD Unavailable Unavailable Juan Pablo Rajan MD Unavailable Unavailable Juan Pablo Rajan MD Unavailable Unavailable Juan Pablo Rajan MD Unavailable Unavailable Quinonez, F Fidelia VACCINE SPECIALIST-BC Unavailable Unavailable Quinonez, F Fidelia VACCINE SPECIALIST-BC Unavailable Unavailable Quinonez, F Fidelia VACCINE SPECIALIST-BC Unavailable Unavailable Quinonez, F Fidelia VACCINE SPECIALIST-BC Unavailable Unavailable Quinonez, F Fidelia VACCINE SPECIALIST-BC Unavailable Unavailable Quinonez, F Fidelia VACCINE SPECIALIST-BC Unavailable Unavailable Quinonez, F Fidelia VACCINE SPECIALIST-BC Unavailable Unavailable Quinonez, F Fidelia VACCINE SPECIALIST-BC Unavailable Unavailable Quinonez, F Fidelia VACCINE SPECIALIST-BC Unavailable Unavailable Quinonez, F Fidelia VACCINE SPECIALIST-BC Unavailable Unavailable Quinonez, F Fidelia VACCINE SPECIALIST-BC Unavailable Unavailable Quinonez, F Fidelia VACCINE SPECIALIST-BC Unavailable Unavailable Quinonez, F Fidelia VACCINE SPECIALIST-BC Unavailable Unavailable Quinonez, F Fidelia VACCINE SPECIALIST-BC Unavailable Unavailable Quinonez, F Fidelia VACCINE SPECIALIST-BC Unavailable Unavailable Quinonez, F Fidelia VACCINE SPECIALIST-BC Unavailable Unavailable Quinonez, F Fidelia VACCINE SPECIALIST-BC Unavailable Unavailable Quinonez, F Fidelia VACCINE SPECIALIST-BC Unavailable Unavailable Quinonez, F Fidelia VACCINE SPECIALIST-BC Unavailable Unavailable Quinonez, F Fidelia VACCINE SPECIALIST-BC Unavailable Unavailable Quinonez, F Fidelia VACCINE SPECIALIST-BC Unavailable Unavailable Quinonez, F Fidelia VACCINE SPECIALIST-BC Unavailable Unavailable Quinonez, F Fidelia VACCINE SPECIALIST-BC Unavailable Unavailable Re-disclosure Warning The records that you are about to access may contain information from federally-assisted alcohol or drug abuse programs. If such information is present, then the following federally mandated warning applies: This information has been disclosed to you from records protected by federal confidentiality rules (42 CFR part 2). The federal rules prohibit you from making any further disclosure of this information unless further disclosure is expressly permitted by the written consent of the person to whom it pertains or as otherwise permitted by 42 CFR part 2. A general authorization for the release of medical or other information is NOT sufficient for this purpose. The Federal rules restrict any use of the information to criminally investigate or prosecute any alcohol or drug abuse patient.The records that you are about to access may contain highly sensitive health information, the redisclosure of which is protected by Article 27-F of the [facility] Public Health law. If you continue you may have access to information: Regarding HIV / AIDS; Provided by facilities licensed or operated by the [facility] Office of Mental Health; or Provided by the [facility] Office for People With Developmental Disabilities. If such information is present, then the following [facility] mandated warning applies: This information has been disclosed to you from confidential records which are protected by state law. State law prohibits you from making any further disclosure of this information without the specific written consent of the person to whom it pertains, or as otherwise permitted by law. Any unauthorized further disclosure in violation of state law may result in a fine or retirement sentence or both. A general authorization for the release of medical or other information is NOT sufficient authorization for further disc losure. Family History Family Member Name Family Member Gender Family Member Status Date o f Status Description Data Source(s) Unknown Unknown Problem [facility] ([facility]) Unknown Male Problem [facility] ([facility]) Encounters Encounter Providers Location Date Indications Data Source(s ) Outpatient Attender: DINORA MEADOWS MD 07/17/2021 12:0 0:00 AM [facility] Outpatient Attender: Esdras HUSSEIN.NATACHA-SJLarry.NATACHA 12:00:00 AM EDT - 05/30/2021 10:12:44 AM EDT [facility] Daniel Rajan MD: [address] [place], [place] [phone], Ph. Attender: Daniel Rajan MD [facility] Medical 05/21/2021 12:00:00 AM EDT [facility] ([facility]) Outpatient Attender: Daniel Romero/Romain/Robert/Re indl 04/24/2021 10:45:00 AM EDT [facility] ([facility]) Daniel Rajan MD: [address] [place] [address], Ph. Attender: Daniel Rajan MD [facility] Medical 04/17/2021 12:00:00 AM EDT [facility] ([facility]) Daniel Rajan MD: [address] [place] [address], Ph. Attender: Daniel Rajan MD [facility] Medical 04/17/2021 12:00:00 AM EDT [facility] ([facility]) Daniel Rajan MD: [address] [place] [address], Ph. Attender: Daniel Rajan MD [facility] Medical 03/20/2021 12:00:00 AM EDT [facility] ([facility]) Daniel Rajan MD: [address] [place] [address], Ph. Attender: Daniel Rajan MD [facility] Medical 03/20/2021 12:00:00 AM EDT [facility] ([facility]) Daniel Rajan MD: [address] [place] [address], Ph. Attender: Daniel Rajan MD [facility] Medical 03/20/2021 12:00:00 AM EDT [facility] ([facility]) Outpatient Attender: Daniel Romero/Romain/Robert/Re indl 03/10/2021 09:15:00 AM EDT [facility] ([facility]) Outpatient Attender: Zuleika Romero/Romain/Oh ngjarvis/Reindl 02/06/2021 10:00:00 AM EDT [facility] ([facility]) Outpatient Attender: Daniel Romero/Romain/Robert/Re indl 01/16/2021 10:00:00 AM EDT [facility] ([facility]) Outpatient Attender: DINORA MEADOWS MD [id number] 01/16/2021 12:00:00 AM EDT - 01/23/2021 03:15:38 PM EDT Chronic kidney disease, stage 3 unspecified [facility] Chronic kidney disease, stage 3 unspecif ied Daniel Rajan MD: [address] [place] [address], Ph. Attender: Daniel Rajan MD [facility] Medical 01/14/2021 12:00:00 AM EDT [facility] ([facility]) Daniel Rajan MD: [address] [place] [address], Ph. Attender: Daniel Rajan MD [facility] Medical 01/14/2021 12:00:00 AM EDT [facility] ([facility]) Daniel Rajan MD: [address] [place] [address], Ph. Attender: Daniel Rajan MD [facility] Medical 01/14/2021 12:00:00 AM EDT [facility] ([facility]) Daniel Rajan MD: [address] [place] [address], Ph. Attender: Daniel Rajan MD [facility] Medical 01/14/2021 12:00:00 AM EDT [facility] ([facility]) Outpatient Attender: Vicki Wilkins MD Physical Therapy 01/09 03:00:00 PM EDT [facility] ([facility] ) Outpatient Attender: Angelica Rodriguez MD Main office - [place] 01/07/2021 12:15:00 PM EDT [facility] ([facility]) Outpatient Attender: MANDO AVALOS [facility] Office 12/15 08:15:00 AM EDT [facility] ([facility] Daniel Rajan MD: [address] [place] [address], Ph. Attender: Daniel Rajan MD [facility] Medical 12/23/2020 12:00:00 AM EDT [facility] ([facility]) Daniel Rajan MD: [address] [place] [address], Ph. Attender: Daniel Rajan MD [facility] Medical 12/23/2020 12:00:00 AM EDT [facility] ([facility]) Daniel Rajan MD: [address] [place] [address], Ph. Attender: Daniel Rajan MD [facility] Medical 12/23/2020 12:00:00 AM EDT [facility] ([facility]) Daniel Rajan MD: [address] [place] [address], Ph. Attender: Daniel Rajan MD [facility] Medical 12/23/2020 12:00:00 AM EDT [facility] ([facility]) Daniel Rajan MD: [address] [place] [address], Ph. Attender: Daniel Rajan MD [facility] Medical 12/23/2020 12:00:00 AM EDT [facility] ([facility]) Daniel Rajan MD: [address] [place] [address], Ph. Attender: Daniel Rajan MD [facility] Medical 12/13/2020 12:00:00 AM EDT [facility] ([facility]) Daniel Rajan MD: [address] [place] [address], Ph. Attender: Daniel Rajan MD [facility] Medical 12/13/2020 12:00:00 AM EDT [facility] ([facility]) Daniel Rajan MD: [address] [place] [address], Ph. Attender: Daniel Rajan MD [facility] Medical 12/13/2020 12:00:00 AM EDT [facility] ([facility]) Daniel Rajan MD: [address] [place] [address], Ph. Attender: Daniel Rajan MD [facility] Medical 12/13/2020 12:00:00 AM EDT [facility] ([facility]) Daniel Rajan MD: [address] [place] [address], Ph. Attender: Daniel Rajan MD [facility] Medical 12/13/2020 12:00:00 AM EDT [facility] ([facility]) Daniel Rajan MD: [address] [place] [address], Ph. Attender: Daniel Rajan MD [facility] Medical 12/13/2020 12:00:00 AM EDT [facility] ([facility]) Outpatient Attender: Zuleika Romero/Romain/Oh byrne/Malathi 11/05/2020 08:30:00 AM EDT [facility] ([facility], ) Outpatient Attender: Esdras DHALIWALP.NATACHA-MADHURIP 12:00:00 AM EDT - 11/05/2020 11:33:44 AM EDT [facility] Outpatient Attender: MANDO AVALOS [facility] 03/2021 07:45:00 AM EST [facility] ([facility] Daniel Rajan MD: [address] [place] [address], Ph. Attender: Daniel Rajan MD [facility] Medical 10/18/2020 12:00:00 AM EST [facility] ([facility]) Daniel Rajan MD: [address] [place] [address], Ph. Attender: Daniel Rajan MD [facility] Medical 10/18/2020 12:00:00 AM EST [facility] ([facility]) Daniel Rajan MD: [address] [place] [address], Ph. Attender: Daniel Rajan MD [facility] Medical 10/18/2020 12:00:00 AM EST [facility] ([facility]) Daniel Rajan MD: [address] [place] [address], Ph. Attender: Daniel Rajan MD [facility] Medical 10/18/2020 12:00:00 AM EST [facility] ([facility]) Daniel Rajan MD: [address] [place] [address], Ph. Attender: Daniel Rajan MD [facility] Medical 10/18/2020 12:00:00 AM EST [facility] ([facility]) Daniel Rajan MD: [address] [place] [address], Ph. Attender: Daniel Rajan MD [facility] Medical 10/18/2020 12:00:00 AM EST [facility] ([facility]) Daniel Rajan MD: [address] [place] [address], Ph. Attender: Daniel Rajan MD [facility] Medical 10/18/2020 12:00:00 AM EST [facility] ([facility]) Daniel Rajan MD: [address] [place] [address], Ph. Attender: Daniel Rajan MD [facility] Medical 09/12/2020 12:00:00 AM EST [facility] ([facility]) Daniel Rajan MD: [address] [place] [address], Ph. Attender: Daniel Rajan MD [facility] Medical 09/12/2020 12:00:00 AM EST [facility] ([facility]) Daniel Rajan MD: [address] [place] [address], Ph. Attender: Daniel Rajan MD [facility] Medical 09/12/2020 12:00:00 AM EST [facility] ([facility]) Daniel Rajan MD: [address] [place] [address], Ph. Attender: Daniel Rajan MD [facility] Medical 09/12/2020 12:00:00 AM EST [facility] ([facility]) Daniel Rajan MD: [address] [place] [address], Ph. Attender: Daniel Rajan MD [facility] Medical 09/12/2020 12:00:00 AM EST [facility] ([facility]) Daniel Rajan MD: [address] [place] [address], Ph. Attender: Daniel Rajan MD [facility] Medical 09/12/2020 12:00:00 AM EST [facility] ([facility]) Daniel Rajan MD: [address] [place] [address], Ph. Attender: Daniel Rajan MD [facility] Medical 09/12/2020 12:00:00 AM EST [facility] ([facility]) ([id number]) For [facility] [address] [place] [phone] 09/12/2020 12:00:00 AM EST eCW1 ([facility]) Daniel Rajan MD: [address] [place] [address], Ph. Attender: Daniel Rajan MD [facility] Medical 09/12/2020 12:00:00 AM EST [facility] ([facility]) Outpatient Attender: Vicki Wilkins MD Physical Therapy 09/10 02:00:00 PM EST [facility] ([facility]) Outpatient Attender: MANDO AVALOS [facility] 08/17 07:45:00 AM EST [facility] ([facility] ([id number]) [facility] [address] [place] [phone] 08/29/2020 12:00:00 AM EST eCW1 ([facility]) Outpatient Attender: MANDO AVALOS [facility] 08/16 07:45:00 AM EST [facility] ([facility] ([id number]) [facility] [address] [place] [phone] 08/22/2020 12:00:00 AM EST eCW1 ([facility]) Office Visit, Est Pt., Level [address] [place] [phone] 08/15/2020 12:00:00 AM EST eCW1 ([facility]) Outpatient [address] [place] [address], [facility] [phone] 08/08/2020 12:00:00 AM EST [facility]CW1 ([facility]) Daniel Rajan MD: [address] [place] [address], Ph. Attender: Daniel Rajan MD [facility] Medical 08/07/2020 12:00:00 AM EST [facility] ([facility]) Daniel Rajan MD: [address] [place] [address], Ph. Attender: Daniel Rajan MD [facility] Medical 08/07/2020 12:00:00 AM EST [facility] ([facility]) Daniel Rajan MD: [address] [place] [address], Ph. Attender: Daniel Rajan MD [facility] Medical 08/07/2020 12:00:00 AM EST [facility] ([facility]) Daniel Rajan MD: [address] [place] [address], Ph. Attender: Daniel Rajan MD [facility] Medical 08/07/2020 12:00:00 AM EST [facility] ([facility]) Daniel Rajan MD: [address] [place] [address], Ph. Attender: Daniel Rajan MD [facility] Medical 08/07/2020 12:00:00 AM EST [facility] ([facility]) Daniel Rajan MD: [address] [place] [address], Ph. Attender: Daniel Rajan MD [facility] Medical 08/07/2020 12:00:00 AM EST [facility] ([facility]) Daniel Rajan MD: [address] [place] [address], Ph. Attender: Daniel Rajan MD [facility] Medical 08/07/2020 12:00:00 AM EST [facility] ([facility]) Daniel Rajan MD: [address] [place] [address], Ph. Attender: Daniel Rajan MD [facility] Medical 08/07/2020 12:00:00 AM EST [facility] ([facility]) Daniel Rajan MD: [address] [place] [address], Ph. Attender: Daniel Rajan MD [facility] Medical 08/07/2020 12:00:00 AM EST [facility] ([facility]) ([id number]) For [facility] [address] [place], [place] [phone] 08/01/2020 12:00:00 AM EST eCW1 ([facility]) ([id number]) For [facility] [address] [place] [phone] 07/25/2020 12:00:00 AM EST eCW1 ([facility]) Outpatient Attender: ERLINDA SALCIDO NP Physical Therapy 10:30:00 AM EST [facility] ([facility]) Outpatient [address] [facility] [phone] 07/18/2020 12:00:00 AM EST eCW1 ([facility]) Outpatient [address] [place] [phone] 07/16/2020 12:00:00 AM EST eCW1 ([facility]) Outpatient Attender: Angelica Rodriguez MD Main office - [place] 07/09/2020 01:30:00 PM EST [facility] ([facility]) Outpatient Attender: ERLINDA SALCIDO NP Physical Therapy 09:45:00 AM EST [facility] ([facility]) ([id number]) New Patient [address] [place], [place] [phone] 07/04/2020 12:00:00 AM EST eCW1 ([facility]) Outpatient Attender: DINORA MEADOWS MDReferrer: Daniel wu MD [id number] 06/20/2020 12:00:00 AM EST - 06/20/2020 12:41:17 PM EST Chronic kidney disease, stage 3 unspecified [facility] Chronic kidney disease, stage 3 unspecif ied Daniel Rajan MD: [address] [place] [address], Ph. Attender: Daniel Rajan MD [facility] Medical 06/12/2020 12:00:00 AM EDT [facility] ([facility]) Daniel Rajan MD: [address] [place] [phone], Ph. Attender: Daniel Rajan MD [facility] Medical 06/12/2020 12:00:00 AM EDT [facility] ([facility]) Daniel Rajan MD: [address] [place] [phone], Ph. Attender: Daniel Rajan MD [facility] Medical 06/12/2020 12:00:00 AM EDT [facility] ([facility]) Daniel Rajan MD: [address] [place] [address], Ph. Attender: Daniel Rajan MD [facility] Medical 06/12/2020 12:00:00 AM EDT [facility] ([facility]) Daniel Rajan MD: [address] [place] [address], Ph. Attender: Daniel Rajan MD [facility] Medical 06/12/2020 12:00:00 AM EDT [facility] ([facility]) Daniel Rajan MD: [address] [place] [address], Ph. Attender: Daniel Rajan MD [facility] Medical 06/12/2020 12:00:00 AM EDT [facility] ([facility]) Daniel Rajan MD: [address] [place] [address], Ph. Attender: Daniel Rajan MD [facility] Medical 06/12/2020 12:00:00 AM EDT [facility] ([facility]) Daniel Rajan MD: [address] [place] [phone], Ph. Attender: Daniel Rajan MD [facility] Medical 06/12/2020 12:00:00 AM EDT [facility] ([facility]) Daniel Rajan MD: [address] [place] [address], Ph. Attender: Daniel Rajan MD [facility] Medical 06/12/2020 12:00:00 AM EDT [facility] ([facility]) Daniel Rajan MD: [address] [place] [phone], Ph. Attender: Daniel Rajan MD [facility] Medical 06/12/2020 12:00:00 AM EDT [facility] ([facility]) Outpatient Attender: DINORA MEADOWS MD 06/10/2020 12:0 0:00 AM [facility] Outpatient Attender: Vicki Wilkins MD Physical Therapy 06/06 01:30:00 PM EDT [facility] ([facility] ) Outpatient Attender: Daniel Rajan MD 05/31/2020 03:38:01 PM EDT [facility] Outpatient Attender: Daniel Rajan MD 05/17/2020 04:52:00 PM EDT [facility] Outpatient Attender: Zuleika Romero/Romain/Oh byrne/Malathi 05/14/2020 08:30:00 AM EDT [facility] ([facility], ) Outpatient Attender: Daniel Rajan MD 05/01/2020 03:06:04 PM EDT [facility] Outpatient Attender: Fidelia JEFFREYP-BC FP 04/30/2020 11: 28:01 AM EDT [facility] Outpatient Attender: Esdras [place] FNPReferrer: Jodie BARTLETTNATACHA-SJPAndresNATACHA 04/30/2020 12:00:00 AM EDT [facility] Outpatient Referrer: Jodie BARTLETTNATACHA-SJPAndresNATACHA 12:00:00 AM EDT [facility] Outpatient Attender: GRACIELA OWENS FP 04/26/2020 12:48:01 PM EDT [facility] Outpatient Attender: Fidelia OWENS-BC FP 04/26/2020 12: 48:00 PM EDT [facility] Outpatient Attender: MANDO AVALOS [facility] Office 04/16 08:45:00 AM EDT [facility] ([facility] Outpatient Attender: Fidelia OWENS-BC FP 04/24/2020 05: 26:02 PM EDT [facility] Outpatient Attender: GRACIELA OWENS FP 04/24/2020 04:42:01 PM EDT [facility] Outpatient Attender: Fidelia JEFFREYP-BC FP 04/18/2020 09: 50:01 AM EDT [facility] Outpatient Attender: Jodie BARTLETTNATACHA-SJP.NATACHA 05/2020 08:59:20 AM EDT - 01/24/2020 10:02:09 AM EDT [facility] Outpatient Attender: DINORA MEADOWS MD [id number] 12/11/2019 12:00:00 AM EDT - 12/11/2019 12:20:11 PM EDT Chronic kidney disease, stage 3 (moderate) [facility] Chronic kidney disease, stage 3 (moderat e) Immunizations Vaccine Date Status Description Data Source(s) IIV3. This is one of two codes replacing CVX 15, which is being retired. 07/04/2020 09:09:00 AM EST completed eCW1 ([facility]) IIV3. This is one of two codes replacing CVX 15, which is being retired. 07/04/2020 09:09:00 AM EST completed eCW1 ([facility]) IIV3. This is one of two codes replacing CVX 15, which is being retired. 07/04/2020 09:09:00 AM EST completed eCW1 ([facility]) IIV3. This is one of two codes replacing CVX 15, which is being retired. 07/04/2020 09:09:00 AM EST completed eCW1 ([facility]) IIV3. This is one of two codes replacing CVX 15, which is being retired. 07/04/2020 09:09:00 AM EST completed eCW1 ([facility]) IIV3. This is one of two codes replacing CVX 15, which is being retired. 07/04/2020 09:09:00 AM EST completed eCW1 ([facility]) IIV3. This is one of two codes replacing CVX 15, which is being retired. 07/04/2020 09:09:00 AM EST completed eCW1 ([facility]) IIV3. This is one of two codes replacing CVX 15, which is being retired. 07/04/2020 09:09:00 AM EST completed eCW1 ([facility]) IIV3. This is one of two codes replacing CVX 15, which is being retired. 07/04/2020 09:09:00 AM EST completed eCW1 ([facility]) IIV3. This is one of two codes replacing CVX 15, which is being retired. 07/04/2020 09:09:00 AM EST completed eCW1 ([facility]) Medications Medication Brand Name Start Date Product Form Dose Route Admi nistrative Instructions Pharmacy Instructions Status Indications Reaction Description Data Source(s) Metoprolol Tartrate 25 MG Oral Tablet me toprolol tartrate (LOPRESSOR) 25 MG tablet metoprolol tartrate (LOPRESSOR) 25 MG tablet 05/30/2021 12:0 0:00 AM EDT 25 mg Oral active Cardiomyopathy, unspecified type Take 1 tablet (25 mg total) by mouth 2 (two) times a day [facility] Cardiomyopathy, unspecified type 100 unit/mL 05/30/2021 12:00:00 AM EDT solution 10 USE DIRECTED WITH PUMP MAXIMUM DAILY DOSE = 50 UNITS USE DIRECTED WITH PUMP MAXIMUM DAILY DOSE = 50 UNITS SOLD: 06/03/2021 [facility] Acetaminophen 325 MG / Hydrocodone Bitartrate 5 MG Ora l Tablet 5-325 mg HYDROCODONE/ACETAMINOPHEN 05/27/2021 12:00:00 AM EDT tablet 90 TAKE ONE TABLET BY MOUTH SIX TIMES A DAY NEEDED MAXIMUM DAILY DOSE = 6 TAKE ONE TABLET BY MOUTH SIX TIMES A DAY NEEDED MAXIMUM DAILY DOSE = 6 SOLD: 05/27/2021 [facility] pantoprazole 40 MG Delayed Release Oral Tablet pantoprazole (PROTONIX) 40 MG tablet pantoprazole (PROTONIX) 40 MG tablet 05/21/2021 12:00:00 AM EDT 40 mg Oral active Take 40 mg by mouth 2 (two) times a day [facility] Acetaminophen 325 MG / Hydrocodone Bitartrate 5 MG Ora l Tablet 5-325 mg HYDROCODONE/ACETAMINOPHEN 05/13/2021 12:00:00 AM EDT tablet 90 TAKE ONE TABLET BY MOUTH SIX TIMES A DAY NEEDED MAXIMUM DAILY DOSE = 6 TAKE ONE TABLET BY MOUTH SIX TIMES A DAY NEEDED MAXIMUM DAILY DOSE = 6 SOLD: 05/13/2021 [facility] 17 gram/dose 05/06/2021 12:00:00 AM EDT powder 510 TAKE 17 GRAMS BY MOUTH ONCE DAILY TAKE 17 GRAMS BY MOUTH ONCE DAILY SOLD: 05/08/2021 [facility] 17 gram/dose 05/06/2021 12:00:00 AM EDT powder 510 TAKE 17 GRAMS BY MOUTH ONCE DAILY TAKE 17 GRAMS BY MOUTH ONCE DAILY SOLD: 06/05/2021 [facility] Acetaminophen 325 MG / Hydrocodone Bitartrate 5 MG Ora l Tablet 5-325 mg HYDROCODONE/ACETAMINOPHEN 04/29/2021 12:00:00 AM EDT tablet 90 TAKE ONE TABLET BY MOUTH 6 TIMES A DAY NEEDED , MAXIMUM DAILY DOSE = 6 TABLETS TAKE ONE TABLET BY MOUTH 6 TIMES A DAY NEEDED , MAXIMUM DAILY DOSE = 6 TABLETS SOLD: 04/29/2021 [facility] Acetaminophen 325 MG / Hydrocodone Bitartrate 5 MG Ora l Tablet 5-325 mg HYDROCODONE/ACETAMINOPHEN 04/15/2021 12:00:00 AM EDT tablet 90 TAKE ONE TABLET BY MOUTH 6 TIMES A DAY NEEDED , MAXIMUM DAILY DOSE = 6 TABLETS TAKE ONE TABLET BY MOUTH 6 TIMES A DAY NEEDED , MAXIMUM DAILY DOSE = 6 TABLETS SOLD: 04/15/2021 [facility] Acetaminophen 325 MG / Hydrocodone Bitartrate 5 MG Ora l Tablet 5-325 mg HYDROCODONE/ACETAMINOPHEN 04/01/2021 12:00:00 AM EDT tablet 90 TAKE ONE TABLET BY MOUTH 6 TIMES A DAY NEEDED MAXIMUM DAILY DOSE = 6 TABLETS TAKE ONE TABLET BY MOUTH 6 TIMES A DAY NEEDED MAXIMUM DAILY DOSE = 6 TABLETS SOLD: 04/01/2021 [facility] Acetaminophen 325 MG / Hydrocodone Bitartrate 5 MG Ora l Tablet 5-325 mg HYDROCODONE/ACETAMINOPHEN 03/18/2021 12:00:00 AM EDT tablet 90 TAKE ONE TABLET BY MOUTH SIX TIMES A DAY NEEDED , MAXIMUM DAILY DOSE = 6 TABLETS TAKE ONE TABLET BY MOUTH SIX TIMES A DAY NEEDED , MAXIMUM DAILY DOSE = 6 TABLETS SOLD: 03/18/2021 [facility] pantoprazole 40 MG Delayed Release Oral Tablet PANTOPRAZOLE SODIUM 03/17/2021 12:00:00 AM EDT tablet,delayed release (DR/EC) 60 T VIKTOR ONE TABLET BY MOUTH TWICE A DAY TAKE ONE TABLET BY MOUTH TWICE A DAY SOLD: 04/24/2021 [facility] pantoprazole 40 MG Delayed Release Oral Tablet PANTOPRAZOLE SODIUM 03/17/2021 12:00:00 AM EDT tablet,delayed release (DR/EC) 60 T VIKTOR ONE TABLET BY MOUTH TWICE A DAY TAKE ONE TABLET BY MOUTH TWICE A DAY SOLD: 03/18/2021 [facility] pantoprazole 40 MG Delayed Release Oral Tablet PANTOPRAZOLE SODIUM 03/17/2021 12:00:00 AM EDT tablet,delayed release (DR/EC) 60 T VIKTOR ONE TABLET BY MOUTH TWICE A DAY TAKE ONE TABLET BY MOUTH TWICE A DAY SOLD: 05/23/2021 [facility] Acetaminophen 325 MG / Hydrocodone Bitartrate 5 MG Ora l Tablet 5-325 mg HYDROCODONE/ACETAMINOPHEN 03/05/2021 12:00:00 AM EDT tablet 90 TAKE ONE TABLET BY MOUTH SIX TIMES A DAY NEEDED MAXIMUM DAILY DOSE = SIX TABLETS TAKE ONE TABLET BY MOUTH SIX TIMES A DAY NEEDED MAXIMUM DAILY DOSE = SIX TABLETS SOLD: 03/05/2021 [facility] Acetaminophen 325 MG / Hydrocodone Bitartrate 5 MG Ora l Tablet 5-325 mg HYDROCODONE/ACETAMINOPHEN 02/18/2021 12:00:00 AM EDT tablet 90 TAKE 1 TABLET BY MOUTH SIX TIMES A DAY NEEDED MAXIMUM DAILY DOSE = SIX TABLETS TAKE 1 TABLET BY MOUTH SIX TIMES A DAY NEEDED MAXIMUM DAILY DOSE = SIX TABLETS SOLD: 02/18/2021 [facility] 100 mg 02/07/2021 12:00:00 AM EDT capsule 30 TAKE ONE CAPSULE BY MOUTH DAILY TAKE ONE CAPSULE BY MOUTH DAILY SOLD: 02/08/2021 [facility] 100 mg 02/07/2021 12:00:00 AM EDT capsule 30 TAKE ONE CAPSULE BY MOUTH DAILY TAKE ONE CAPSULE BY MOUTH DAILY SOLD: 05/02/2021 [facility] 100 mg 02/07/2021 12:00:00 AM EDT capsule 30 TAKE ONE CAPSULE BY MOUTH DAILY TAKE ONE CAPSULE BY MOUTH DAILY SOLD: 04/07/2021 [facility] 100 mg 02/07/2021 12:00:00 AM EDT capsule 30 TAKE ONE CAPSULE BY MOUTH DAILY TAKE ONE CAPSULE BY MOUTH DAILY SOLD: 06/03/2021 [facility] 100 mg 02/07/2021 12:00:00 AM EDT capsule 30 TAKE ONE CAPSULE BY MOUTH DAILY TAKE ONE CAPSULE BY MOUTH DAILY SOLD: 03/06/2021 [facility] 150 mg 02/05/2021 12:00:00 AM EDT capsule 90 TAKE ONE CAPSULE BY MOUTH THREE TIMES A DAY, MAXIMUM DAILY DOSE = 3 TAKE ONE CAPSULE BY MOUTH THREE TIMES A DAY, MAXIMUM DAILY DOSE = 3 SOLD: 02/05/2021 [facility] 150 mg 02/05/2021 12:00:00 AM EDT capsule 90 TAKE ONE CAPSULE BY MOUTH THREE TIMES A DAY, MAXIMUM DAILY DOSE = 3 TAKE ONE CAPSULE BY MOUTH THREE TIMES A DAY, MAXIMUM DAILY DOSE = 3 SOLD: 06/05/2021 [facility] 150 mg 02/05/2021 12:00:00 AM EDT capsule 90 TAKE ONE CAPSULE BY MOUTH THREE TIMES A DAY, MAXIMUM DAILY DOSE = 3 TAKE ONE CAPSULE BY MOUTH THREE TIMES A DAY, MAXIMUM DAILY DOSE = 3 SOLD: 03/06/2021 [facility] 150 mg 02/05/2021 12:00:00 AM EDT capsule 90 TAKE ONE CAPSULE BY MOUTH THREE TIMES A DAY, MAXIMUM DAILY DOSE = 3 TAKE ONE CAPSULE BY MOUTH THREE TIMES A DAY, MAXIMUM DAILY DOSE = 3 SOLD: 04/07/2021 [facility] 150 mg 02/05/2021 12:00:00 AM EDT capsule 90 TAKE ONE CAPSULE BY MOUTH THREE TIMES A DAY, MAXIMUM DAILY DOSE = 3 TAKE ONE CAPSULE BY MOUTH THREE TIMES A DAY, MAXIMUM DAILY DOSE = 3 SOLD: 05/08/2021 [facility] Acetaminophen 325 MG / Hydrocodone Bitartrate 5 MG Ora l Tablet 5-325 mg HYDROCODONE/ACETAMINOPHEN 02/04/2021 12:00:00 AM EDT tablet 90 TAKE ONE TABLET BY MOUTH SIX TIMES DAILY NEEDED MAXIMUM DAILY DOSE = SIX TABLETS TAKE ONE TABLET BY MOUTH SIX TIMES DAILY NEEDED MAXIMUM DAILY DOSE = SIX TABLETS SOLD: 02/04/2021 [facility] 5 mg 01/31/2021 12:00:00 AM EDT tablet 60 TAKE ONE TABLET BY MOUTH TWICE A DAY TAKE ONE TABLET BY MOUTH TWICE A DAY SOLD: 06/03/2021 [facility] atorvastatin 20 MG Oral Tablet ATORVASTATIN CALCIUM 01/31/2021 1 2:00:00 AM EDT tablet 30 TAKE ONE TABLET BY MOUTH EVERY D AY TAKE ONE TABLET BY MOUTH EVERY DAY SOLD: 04/07/2021 [facility] 5 mg 01/31/2021 12:00:00 AM EDT tablet 60 TAKE ONE TABLET BY MOUTH TWICE A DAY TAKE ONE TABLET BY MOUTH TWICE A DAY SOLD: 03/06/2021 [facility] atorvastatin 20 MG Oral Tablet ATORVASTATIN CALCIUM 01/31/2021 1 2:00:00 AM EDT tablet 30 TAKE ONE TABLET BY MOUTH EVERY D AY TAKE ONE TABLET BY MOUTH EVERY DAY SOLD: 03/06/2021 [facility] atorvastatin 20 MG Oral Tablet ATORVASTATIN CALCIUM 01/31/2021 1 2:00:00 AM EDT tablet 30 TAKE ONE TABLET BY MOUTH EVERY D AY TAKE ONE TABLET BY MOUTH EVERY DAY SOLD: 06/03/2021 [facility] 5 mg 01/31/2021 12:00:00 AM EDT tablet 60 TAKE ONE TABLET BY MOUTH TWICE A DAY TAKE ONE TABLET BY MOUTH TWICE A DAY SOLD: 04/07/2021 [facility] BLOOD SUGAR DIAGNOSTIC 01/31/2021 12:00:00 AM EDT strip 100 USE TO TEST 6 TIMES A DAY MAXIMUM DAILY DOSE = 6 USE TO TEST 6 TIMES A DAY MAXIMUM DAILY DOSE = 6 SOLD: 03/03/2021 [facility] atorvastatin 20 MG Oral Tablet ATORVASTATIN CALCIUM 01/31/2021 1 2:00:00 AM EDT tablet 30 TAKE ONE TABLET BY MOUTH EVERY D AY TAKE ONE TABLET BY MOUTH EVERY DAY SOLD: 05/02/2021 [facility] BLOOD SUGAR DIAGNOSTIC 01/31/2021 12:00:00 AM EDT strip 100 USE TO TEST 6 TIMES A DAY MAXIMUM DAILY DOSE = 6 USE TO TEST 6 TIMES A DAY MAXIMUM DAILY DOSE = 6 SOLD: 06/05/2021 [facility] 5 mg 01/31/2021 12:00:00 AM EDT tablet 60 TAKE ONE TABLET BY MOUTH TWICE A DAY TAKE ONE TABLET BY MOUTH TWICE A DAY SOLD: 01/31/2021 [facility] BLOOD SUGAR DIAGNOSTIC 01/31/2021 12:00:00 AM EDT strip 100 USE TO TEST 6 TIMES A DAY MAXIMUM DAILY DOSE = 6 USE TO TEST 6 TIMES A DAY MAXIMUM DAILY DOSE = 6 SOLD: 05/02/2021 [facility] BLOOD SUGAR DIAGNOSTIC 01/31/2021 12:00:00 AM EDT strip 100 USE TO TEST 6 TIMES A DAY MAXIMUM DAILY DOSE = 6 USE TO TEST 6 TIMES A DAY MAXIMUM DAILY DOSE = 6 SOLD: 04/01/2021 [facility] atorvastatin 20 MG Oral Tablet ATORVASTATIN CALCIUM 01/31/2021 1 2:00:00 AM EDT tablet 30 TAKE ONE TABLET BY MOUTH EVERY D AY TAKE ONE TABLET BY MOUTH EVERY DAY SOLD: 01/31/2021 [facility] 5 mg 01/31/2021 12:00:00 AM EDT tablet 60 TAKE ONE TABLET BY MOUTH TWICE A DAY TAKE ONE TABLET BY MOUTH TWICE A DAY SOLD: 05/02/2021 [facility] BLOOD SUGAR DIAGNOSTIC 01/31/2021 12:00:00 AM EDT strip 100 USE TO TEST 6 TIMES A DAY MAXIMUM DAILY DOSE = 6 USE TO TEST 6 TIMES A DAY MAXIMUM DAILY DOSE = 6 SOLD: 01/31/2021 [facility] atorvastatin 20 MG Oral Tablet atorvastatin (LIPITOR) 20 MG tablet atorvastatin (LIPITOR) 20 MG tablet 01/30/2021 12:00:00 AM EDT active TAKE ONE TABLET BY MOUTH EVERY DAY [facility] 100 unit/mL 01/28/2021 12:00:00 AM EDT solution 10 USE DIRECTED WITH PUMP MAXIMUM DAILY DOSE = 50 UNITS USE DIRECTED WITH PUMP MAXIMUM DAILY DOSE = 50 UNITS SOLD: 03/06/2021 [facility] 100 unit/mL 01/28/2021 12:00:00 AM EDT solution 10 USE DIRECTED WITH PUMP MAXIMUM DAILY DOSE = 50 UNITS USE DIRECTED WITH PUMP MAXIMUM DAILY DOSE = 50 UNITS SOLD: 01/31/2021 [facility] 100 unit/mL 01/28/2021 12:00:00 AM EDT solution 10 USE DIRECTED WITH PUMP MAXIMUM DAILY DOSE = 50 UNITS USE DIRECTED WITH PUMP MAXIMUM DAILY DOSE = 50 UNITS SOLD: 05/02/2021 [facility] 100 unit/mL 01/28/2021 12:00:00 AM EDT solution 10 USE DIRECTED WITH PUMP MAXIMUM DAILY DOSE = 50 UNITS USE DIRECTED WITH PUMP MAXIMUM DAILY DOSE = 50 UNITS SOLD: 04/07/2021 [facility] 75 mg 01/27/2021 12:00:00 AM EDT capsule,extended releas e 24hr 45 TAKE ONE CAPSULE BY MOUTH EVERY MORNING AND TAKE ONE CAPSULE BY MOUTH AT BEDTIME NEEDED WHEN MORE NEUROPATHY PAIN IN FEET MAXIMUM DAILY DOSE = 2 CAPSULES TAKE ONE CAPSULE BY MOUTH EVERY MORNING AND TAKE ONE CAPSULE BY MOUTH AT BEDTIME NEEDED WHEN MORE NEUROPATHY PAIN IN FEET MAXIMUM DAILY DOSE = 2 CAPSULES SOLD: 01/31/2021 [facility] 75 mg 01/27/2021 12:00:00 AM EDT capsule,extended releas e 24hr 45 TAKE ONE CAPSULE BY MOUTH EVERY MORNING AND TAKE ONE CAPSULE BY MOUTH AT BEDTIME NEEDED WHEN MORE NEUROPATHY PAIN IN FEET MAXIMUM DAILY DOSE = 2 CAPSULES TAKE ONE CAPSULE BY MOUTH EVERY MORNING AND TAKE ONE CAPSULE BY MOUTH AT BEDTIME NEEDED WHEN MORE NEUROPATHY PAIN IN FEET MAXIMUM DAILY DOSE = 2 CAPSULES SOLD: 06/03/2021 [facility] 75 mg 01/27/2021 12:00:00 AM EDT capsule,extended releas e 24hr 45 TAKE ONE CAPSULE BY MOUTH EVERY MORNING AND TAKE ONE CAPSULE BY MOUTH AT BEDTIME NEEDED WHEN MORE NEUROPATHY PAIN IN FEET MAXIMUM DAILY DOSE = 2 CAPSULES TAKE ONE CAPSULE BY MOUTH EVERY MORNING AND TAKE ONE CAPSULE BY MOUTH AT BEDTIME NEEDED WHEN MORE NEUROPATHY PAIN IN FEET MAXIMUM DAILY DOSE = 2 CAPSULES SOLD: 03/05/2021 [facility] 75 mg 01/27/2021 12:00:00 AM EDT capsule,extended releas e 24hr 45 TAKE ONE CAPSULE BY MOUTH EVERY MORNING AND TAKE ONE CAPSULE BY MOUTH AT BEDTIME NEEDED WHEN MORE NEUROPATHY PAIN IN FEET MAXIMUM DAILY DOSE = 2 CAPSULES TAKE ONE CAPSULE BY MOUTH EVERY MORNING AND TAKE ONE CAPSULE BY MOUTH AT BEDTIME NEEDED WHEN MORE NEUROPATHY PAIN IN FEET MAXIMUM DAILY DOSE = 2 CAPSULES SOLD: 04/07/2021 [facility] 75 mg 01/27/2021 12:00:00 AM EDT capsule,extended releas e 24hr 45 TAKE ONE CAPSULE BY MOUTH EVERY MORNING AND TAKE ONE CAPSULE BY MOUTH AT BEDTIME NEEDED WHEN MORE NEUROPATHY PAIN IN FEET MAXIMUM DAILY DOSE = 2 CAPSULES TAKE ONE CAPSULE BY MOUTH EVERY MORNING AND TAKE ONE CAPSULE BY MOUTH AT BEDTIME NEEDED WHEN MORE NEUROPATHY PAIN IN FEET MAXIMUM DAILY DOSE = 2 CAPSULES SOLD: 05/02/2021 [facility] 25 mg 01/22/2021 12:00:00 AM EDT tablet 180 TAKE ONE TABLET BY MOUTH TWO TIMES A DAY TAKE ONE TABLET BY MOUTH TWO TIMES A DAY SOLD: 01/24/2021 [facility] 25 mg 01/22/2021 12:00:00 AM EDT tablet 180 TAKE ONE TABLET BY MOUTH TWO TIMES A DAY TAKE ONE TABLET BY MOUTH TWO TIMES A DAY SOLD: 04/24/2021 [facility] Metoprolol Tartrate 25 MG Oral Tablet me toprolol tartrate (LOPRESSOR) 25 MG tablet metoprolol tartrate (LOPRESSOR) 25 MG tablet 01/21/2021 12:0 0:00 AM EDT aborted Cardiomyopathy, unspecified type TAKE ONE TABLET BY MOUTH TWO TIMES A DAY [facility] Cardiomyopathy, unspecified type Acetaminophen 325 MG / Hydrocodone Bitartrate 5 MG Ora l Tablet 5-325 mg HYDROCODONE/ACETAMINOPHEN 01/21/2021 12:00:00 AM EDT tablet 90 TAKE ONE TABLET BY MOUTH 6 TIMES A DAY NEEDED, MAXIMUM DAILY DOSE = SIX TABLETS TAKE ONE TABLET BY MOUTH 6 TIMES A DAY NEEDED, MAXIMUM DAILY DOSE = SIX TABLETS SOLD: 01/21/2021 [facility] 24 HR venlafaxine 75 MG Extended Release Oral Capsule VENLAF AXINE HCL 01/07/2021 12:00:00 AM EDT capsule,extended release 24hr 30 TA KE ONE CAPSULE BY MOUTH EVERY MORNING TAKE ONE CAPSULE BY MOUTH EVERY MORNING SOLD: 01/07/2021 [facility] Acetaminophen 325 MG / Hydrocodone Bitartrate 5 MG Ora l Tablet 5-325 mg HYDROCODONE/ACETAMINOPHEN 01/07/2021 12:00:00 AM EDT tablet 90 TAKE ONE TABLET BY MOUTH SIX TIMES A DAY NEEDED MAXIMUM DAILY DOSE = 6 TABLETS TAKE ONE TABLET BY MOUTH SIX TIMES A DAY NEEDED MAXIMUM DAILY DOSE = 6 TABLETS SOLD: 01/07/2021 [facility] 5 mg 01/07/2021 12:00:00 AM EDT tablet 60 TAKE ONE TABLET BY MOUTH TWO TIMES A DAY MAXIMUM DAILY DOSE = 2 TABLETS TAKE ONE TABLET BY MOUTH TWO TIMES A DAY MAXIMUM DAILY DOSE = 2 TABLETS SOLD: 01/07/2021 [facility] 150 mg 01/06/2021 12:00:00 AM EDT capsule 90 TAKE ONE CAPSULE BY MOUTH THREE TIMES A DAY , MAXIMUM DAILY DOSE = 3 CAPSULES TAKE ONE CAPSULE BY MOUTH THREE TIMES A DAY , MAXIMUM DAILY DOSE = 3 CAPSULES SOLD: 01/07/2021 [facility] BLOOD SUGAR DIAGNOSTIC 12/31/2020 12:00:00 AM EDT strip 100 USE TO TEST 6 TIMES A DAY MAXIMUM DAILY DOSE = 6 USE TO TEST 6 TIMES A DAY MAXIMUM DAILY DOSE = 6 SOLD: 01/05/2021 [facility] Acetaminophen 325 MG / Hydrocodone Bitartrate 5 MG Ora l Tablet 5-325 mg HYDROCODONE/ACETAMINOPHEN 12/24/2020 12:00:00 AM EDT tablet 90 TAKE ONE TABLET BY MOUTH 6 TIMES A DAY NEEDED, MAXIMUM DAILY DOSE = SIX TABLETS TAKE ONE TABLET BY MOUTH 6 TIMES A DAY NEEDED, MAXIMUM DAILY DOSE = SIX TABLETS SOLD: 12/24/2020 [facility] pantoprazole 40 MG Delayed Release Oral Tablet PANTOPRAZOLE SODIUM 12/12/2020 12:00:00 AM EDT tablet,delayed release (DR/EC) 60 T VIKTOR ONE TABLET BY MOUTH TWICE A DAY TAKE ONE TABLET BY MOUTH TWICE A DAY SOLD: 01/10/2021 [facility] pantoprazole 40 MG Delayed Release Oral Tablet pantoprazole 40 mg tablet,delayed release Take 1 tablet twice a day by oral route. pantoprazole 40 mg tablet,delayed release Take 1 tablet twice a day by oral route. 12/12/2020 12:00:00 AM EDT 1 completed pantoprazole 40 MG Delayed Release Oral Tablet [facility] ([facility]) pantoprazole 40 MG Delayed Release Oral Tablet PANTOPRAZOLE SODIUM 12/12/2020 12:00:00 AM EDT tablet,delayed release (DR/EC) 60 T VIKTOR ONE TABLET BY MOUTH TWICE A DAY TAKE ONE TABLET BY MOUTH TWICE A DAY SOLD: 02/13/2021 [facility] pantoprazole 40 MG Delayed Release Oral Tablet pantoprazole 40 mg tablet,delayed release Take 1 tablet twice a day by oral route. pantoprazole 40 mg tablet,delayed release Take 1 tablet twice a day by oral route. 12/12/2020 12:00:00 AM EDT 1 completed pantoprazole 40 MG Delayed Release Oral Tablet [facility] ([facility]) pantoprazole 40 MG Delayed Release Oral Tablet PANTOPRAZOLE SODIUM 12/12/2020 12:00:00 AM EDT tablet,delayed release (DR/EC) 60 T VIKTOR ONE TABLET BY MOUTH TWICE A DAY TAKE ONE TABLET BY MOUTH TWICE A DAY SOLD: 12/12/2020 [facility] pantoprazole 40 MG Delayed Release Oral Tablet Pantoprazole Sodium 12/12/2020 12:00:00 AM EDT tere DICKEY ([facility], ) 17 gram/dose 12/05/2020 12:00:00 AM EDT powder 510 TAKE 17 GRAMS BY MOUTH ONCE DAILY TAKE 17 GRAMS BY MOUTH ONCE DAILY SOLD: 03/15/2021 [facility] 17 gram/dose 12/05/2020 12:00:00 AM EDT powder 510 TAKE 17 GRAMS BY MOUTH ONCE DAILY TAKE 17 GRAMS BY MOUTH ONCE DAILY SOLD: 02/13/2021 [facility] 17 gram/dose 12/05/2020 12:00:00 AM EDT powder 510 TAKE 17 GRAMS BY MOUTH ONCE DAILY TAKE 17 GRAMS BY MOUTH ONCE DAILY SOLD: 04/11/2021 [facility] 17 gram/dose 12/05/2020 12:00:00 AM EDT powder 510 TAKE 17 GRAMS BY MOUTH ONCE DAILY TAKE 17 GRAMS BY MOUTH ONCE DAILY SOLD: 01/10/2021 [facility] 5-325 mg 11/26/2020 12:00:00 AM EDT tablet 90 TAKE ONE TABLET BY MOUTH SIX TIMES A DAY IF NEEDED, MAX OF 6 PER DAY TAKE ONE TABLET BY MOUTH SIX TIMES A DAY IF NEEDED, MAX OF 6 PER DAY SOLD: 11/26/2020 [facility] 5-325 mg 11/12/2020 12:00:00 AM EDT tablet 90 TAKE ONE TABLET BY MOUTH 6 TIMES A DAY NEEDED. MAXIMUM DAILY DOSE = 6 TAKE ONE TABLET BY MOUTH 6 TIMES A DAY NEEDED. MAXIMUM DAILY DOSE = 6 SOLD: 11/12/2020 [facility] CONTOUR NEXT TEST test strip [id number] 11/03/2020 12:00:00 AM EDT active [facility] 20 mg 11/01/2020 12:00:00 AM EDT tablet,delayed release (DR/EC) 60 TAKE ONE TABLET BY MOUTH TWICE A DAY TAKE ONE TABLET BY MOUTH TWICE A DAY SOLD: 11/04/2020 [facility] 20 mg 11/01/2020 12:00:00 AM EDT tablet,delayed release (DR/EC) 60 TAKE ONE TABLET BY MOUTH TWICE A DAY TAKE ONE TABLET BY MOUTH TWICE A DAY SOLD: 12/05/2020 [facility] 5-325 mg 10/29/2020 12:00:00 AM EDT tablet 90 TAKE ONE TABLET BY MOUTH 6 TIMES A DAY NEEDED MAXIMUM DAILY DOSE = 6 TABLETS TAKE ONE TABLET BY MOUTH 6 TIMES A DAY NEEDED MAXIMUM DAILY DOSE = 6 TABLETS SOLD: 10/29/2020 [facility] 5-325 mg 10/20/2020 12:00:00 AM EST tablet 60 TAKE ONE TABLET BY MOUTH SIX TIMES DAILY NEEDED MAXIMUM DAILY DOSE = SIX TABLETS TAKE ONE TABLET BY MOUTH SIX TIMES DAILY NEEDED MAXIMUM DAILY DOSE = SIX TABLETS SOLD: 10/20/2020 [facility] 5-325 mg 10/11/2020 12:00:00 AM EST tablet 60 TAKE ONE TABLET BY MOUTH SIX TIMES A DAY NEEDED MAXIMUM DAILY DOSE = 6 TABLETS TAKE ONE TABLET BY MOUTH SIX TIMES A DAY NEEDED MAXIMUM DAILY DOSE = 6 TABLETS SOLD: 10/11/2020 [facility] 100 unit/mL 10/03/2020 12:00:00 AM EST solution 10 USE DIRECTED WITH PUMP MAXIMUM DAILY DOSE = 50 UNITS USE DIRECTED WITH PUMP MAXIMUM DAILY DOSE = 50 UNITS SOLD: 10/08/2020 [facility] 100 unit/mL 10/03/2020 12:00:00 AM EST solution 10 USE DIRECTED WITH PUMP MAXIMUM DAILY DOSE = 50 UNITS USE DIRECTED WITH PUMP MAXIMUM DAILY DOSE = 50 UNITS SOLD: 12/05/2020 [facility] 100 unit/mL 10/03/2020 12:00:00 AM EST solution 10 USE DIRECTED WITH PUMP MAXIMUM DAILY DOSE = 50 UNITS USE DIRECTED WITH PUMP MAXIMUM DAILY DOSE = 50 UNITS SOLD: 11/04/2020 [facility] 100 unit/mL 10/03/2020 12:00:00 AM EST solution 10 USE DIRECTED WITH PUMP MAXIMUM DAILY DOSE = 50 UNITS USE DIRECTED WITH PUMP MAXIMUM DAILY DOSE = 50 UNITS SOLD: 01/05/2021 [facility] 5-325 mg 10/02/2020 12:00:00 AM EST tablet 60 TAKE ONE TABLET BY MOUTH SIX TIMES A DAY NEEDED MAXIMUM DAILY DOSE = SIX TABLETS TAKE ONE TABLET BY MOUTH SIX TIMES A DAY NEEDED MAXIMUM DAILY DOSE = SIX TABLETS SOLD: 10/02/2020 [facility] 5-325 mg 09/23/2020 12:00:00 AM EST tablet 60 TAKE ONE TABLET BY MOUTH SIX TIMES DAILY NEEDED MAXIMUM DAILY DOSE = SIX TABLETS TAKE ONE TABLET BY MOUTH SIX TIMES DAILY NEEDED MAXIMUM DAILY DOSE = SIX TABLETS SOLD: 09/23/2020 [facility] 5-325 mg 09/14/2020 12:00:00 AM EST tablet 60 TAKE ONE TABLET BY MOUTH 6 TIMES A DAY NEEDED, MAXIMUM DAILY DOSE = SIX TABLETS TAKE ONE TABLET BY MOUTH 6 TIMES A DAY NEEDED, MAXIMUM DAILY DOSE = SIX TABLETS SOLD: 09/14/2020 [facility] 0.25 mg 09/12/2020 12:00:00 AM EST tablet 30 TAKE ONE TABLET BY MOUTH EVERY DAY TAKE ONE TABLET BY MOUTH EVERY DAY SOLD: 09/12/2020 [facility] 5-325 mg 09/05/2020 12:00:00 AM EST tablet 60 TAKE ONE TABLET BY MOUTH SIX TIMES A DAY NEEDED MAXIMUM DAILY DOSE = SIX TABLETS TAKE ONE TABLET BY MOUTH SIX TIMES A DAY NEEDED MAXIMUM DAILY DOSE = SIX TABLETS SOLD: 09/05/2020 [facility] Sulfamethoxazole 800 MG / Trimethoprim 160 MG Oral Tab let 800-160 mg SULFAMETHOXAZOLE/TRIMETHOPRIM 08/26/2020 12:00:00 AM EST tablet 20 TAKE ONE TABLET BY MOUTH TWICE A DAY TAKE ONE TABLET BY MOUTH TWICE A DAY SOLD: 09/04/2020 [facility] 5-325 mg 08/25/2020 12:00:00 AM EST tablet 60 TAKE ONE TABLET BY MOUTH 6 TIMES DAILY NEEDED MAXIMUM DAILY DOSE = SIX TABLETS TAKE ONE TABLET BY MOUTH 6 TIMES DAILY NEEDED MAXIMUM DAILY DOSE = SIX TABLETS SOLD: 08/25/2020 [facility] 5-325 mg 08/14/2020 12:00:00 AM EST tablet 60 TAKE ONE TABLET BY MOUTH SIX TIMES A DAY NEEDED MAXIMUM DAILY DOSE = SIX TABLETS TAKE ONE TABLET BY MOUTH SIX TIMES A DAY NEEDED MAXIMUM DAILY DOSE = SIX TABLETS SOLD: 08/14/2020 [facility] atorvastatin 20 MG Oral Tablet ATORVASTATIN CALCIUM 08/10/2020 1 2:00:00 AM EST tablet 30 TAKE ONE TABLET BY MOUTH EVERY D AY TAKE ONE TABLET BY MOUTH EVERY DAY SOLD: 10/10/2020 [facility] atorvastatin 20 MG Oral Tablet ATORVASTATIN CALCIUM 08/10/2020 1 2:00:00 AM EST tablet 30 TAKE ONE TABLET BY MOUTH EVERY D AY TAKE ONE TABLET BY MOUTH EVERY DAY SOLD: 09/12/2020 [facility] atorvastatin 20 MG Oral Tablet ATORVASTATIN CALCIUM 08/10/2020 1 2:00:00 AM EST tablet 30 TAKE ONE TABLET BY MOUTH EVERY D AY TAKE ONE TABLET BY MOUTH EVERY DAY SOLD: 12/05/2020 [facility] atorvastatin 20 MG Oral Tablet ATORVASTATIN CALCIUM 08/10/2020 1 2:00:00 AM EST tablet 30 TAKE ONE TABLET BY MOUTH EVERY D AY TAKE ONE TABLET BY MOUTH EVERY DAY SOLD: 11/07/2020 [facility] atorvastatin 20 MG Oral Tablet ATORVASTATIN CALCIUM 08/10/2020 1 2:00:00 AM EST tablet 30 TAKE ONE TABLET BY MOUTH EVERY D AY TAKE ONE TABLET BY MOUTH EVERY DAY SOLD: 08/14/2020 [facility] atorvastatin 20 MG Oral Tablet ATORVASTATIN CALCIUM 08/10/2020 1 2:00:00 AM EST tablet 30 TAKE ONE TABLET BY MOUTH EVERY D AY TAKE ONE TABLET BY MOUTH EVERY DAY SOLD: 01/05/2021 [facility] atorvastatin 20 MG Oral Tablet atorvastatin (LIPITOR) 20 MG tablet atorvastatin (LIPITOR) 20 MG tablet 08/08/2020 12:00:00 AM EST active TAKE ONE TABLET BY MOUTH EVERY DAY [facility] 20 mg 08/05/2020 12:00:00 AM EST tablet,delayed release (DR/EC) 60 TAKE ONE TABLET BY MOUTH TWICE A DAY TAKE ONE TABLET BY MOUTH TWICE A DAY SOLD: 08/07/2020 [facility] 20 mg 08/05/2020 12:00:00 AM EST tablet,delayed release (DR/EC) 60 TAKE ONE TABLET BY MOUTH TWICE A DAY TAKE ONE TABLET BY MOUTH TWICE A DAY SOLD: 10/02/2020 [facility] 20 mg 08/05/2020 12:00:00 AM EST tablet,delayed release (DR/EC) 60 TAKE ONE TABLET BY MOUTH TWICE A DAY TAKE ONE TABLET BY MOUTH TWICE A DAY SOLD: 09/09/2020 [facility] 100 mg 08/01/2020 12:00:00 AM EST capsule 30 TAKE ONE CAPSULE BY MOUTH EVERY DAY TAKE ONE CAPSULE BY MOUTH EVERY DAY SOLD: 01/05/2021 [facility] 5-325 mg 08/01/2020 12:00:00 AM EST tablet 60 TAKE ONE TABLET BY MOUTH 6 TIMES A DAY NEEDED, MAXIMUM DAILY DOSE = SIX TABLETS TAKE ONE TABLET BY MOUTH 6 TIMES A DAY NEEDED, MAXIMUM DAILY DOSE = SIX TABLETS SOLD: 08/01/2020 [facility] 100 mg 08/01/2020 12:00:00 AM EST capsule 30 TAKE ONE CAPSULE BY MOUTH EVERY DAY TAKE ONE CAPSULE BY MOUTH EVERY DAY SOLD: 08/01/2020 [facility] 100 mg 08/01/2020 12:00:00 AM EST capsule 30 TAKE ONE CAPSULE BY MOUTH EVERY DAY TAKE ONE CAPSULE BY MOUTH EVERY DAY SOLD: 11/04/2020 [facility] 100 mg 08/01/2020 12:00:00 AM EST capsule 30 TAKE ONE CAPSULE BY MOUTH EVERY DAY TAKE ONE CAPSULE BY MOUTH EVERY DAY SOLD: 09/04/2020 [facility] 100 mg 08/01/2020 12:00:00 AM EST capsule 30 TAKE ONE CAPSULE BY MOUTH EVERY DAY TAKE ONE CAPSULE BY MOUTH EVERY DAY SOLD: 10/02/2020 [facility] 100 mg 08/01/2020 12:00:00 AM EST capsule 30 TAKE ONE CAPSULE BY MOUTH EVERY DAY TAKE ONE CAPSULE BY MOUTH EVERY DAY SOLD: 12/05/2020 [facility] BLOOD SUGAR DIAGNOSTIC 07/27/2020 12:00:00 AM EST strip 100 DIRECTED SIX TIMES A DAY MAXIMUM DAILY DOSE = 6 DIRECTED SIX TIMES A DAY MAXIMUM AYLEEN Y DOSE = 6 SOLD: 08/01/2020 [facility] BLOOD SUGAR DIAGNOSTIC 07/27/2020 12:00:00 AM EST strip 100 DIRECTED SIX TIMES A DAY MAXIMUM DAILY DOSE = 6 DIRECTED SIX TIMES A DAY MAXIMUM AYLEEN Y DOSE = 6 SOLD: 09/14/2020 [facility] BLOOD SUGAR DIAGNOSTIC 07/27/2020 12:00:00 AM EST strip 100 DIRECTED SIX TIMES A DAY MAXIMUM DAILY DOSE = 6 DIRECTED SIX TIMES A DAY MAXIMUM AYLEEN Y DOSE = 6 SOLD: 10/10/2020 [facility] BLOOD SUGAR DIAGNOSTIC 07/27/2020 12:00:00 AM EST strip 100 DIRECTED SIX TIMES A DAY MAXIMUM DAILY DOSE = 6 DIRECTED SIX TIMES A DAY MAXIMUM AYLEEN Y DOSE = 6 SOLD: 08/25/2020 [facility] BLOOD SUGAR DIAGNOSTIC 07/27/2020 12:00:00 AM EST strip 100 DIRECTED SIX TIMES A DAY MAXIMUM DAILY DOSE = 6 DIRECTED SIX TIMES A DAY MAXIMUM AYLEEN Y DOSE = 6 SOLD: 11/04/2020 [facility] BLOOD SUGAR DIAGNOSTIC 07/27/2020 12:00:00 AM EST strip 100 DIRECTED SIX TIMES A DAY MAXIMUM DAILY DOSE = 6 DIRECTED SIX TIMES A DAY MAXIMUM AYLEEN Y DOSE = 6 SOLD: 12/05/2020 [facility] 5-325 mg 07/26/2020 12:00:00 AM EST tablet 30 TAKE ONE TABLET BY MOUTH 6 TIMES A DAY NEEDED MAXIMUM DAILY DOSE = 6 TAKE ONE TABLET BY MOUTH 6 TIMES A DAY NEEDED MAXIMUM DAILY DOSE = 6 SOLD: 07/26/2020 [facility] 25 mg 07/18/2020 12:00:00 AM EST tablet 180 TAKE ONE TABLET BY MOUTH TWO TIMES A DAY TAKE ONE TABLET BY MOUTH TWO TIMES A DAY SOLD: 07/25/2020 [facility] 25 mg 07/18/2020 12:00:00 AM EST tablet 180 TAKE ONE TABLET BY MOUTH TWO TIMES A DAY TAKE ONE TABLET BY MOUTH TWO TIMES A DAY SOLD: 10/20/2020 [facility] Metoprolol Tartrate 25 MG Oral Tablet me toprolol tartrate (LOPRESSOR) 25 MG tablet metoprolol tartrate (LOPRESSOR) 25 MG tablet 07/17/2020 12:0 0:00 AM EST active Cardiomyopathy, unspecified type TAKE ONE TABLET BY MOUTH TWICE A DAY [facility] Cardiomyopathy, unspecified type 5-325 mg 07/16/2020 12:00:00 AM EST tablet 60 TAKE ONE TABLET BY MOUTH SIX TIMES DAILY NEEDED MAXIMUM DAILY DOSE = SIX TABLETS TAKE ONE TABLET BY MOUTH SIX TIMES DAILY NEEDED MAXIMUM DAILY DOSE = SIX TABLETS SOLD: 07/16/2020 [facility] 150 mg 07/09/2020 12:00:00 AM EST capsule 90 TAKE ONE CAPSULE BY MOUTH THREE TIMES A DAY, MAXIMUM DAILY DOSE = 3 TAKE ONE CAPSULE BY MOUTH THREE TIMES A DAY, MAXIMUM DAILY DOSE = 3 SOLD: 09/09/2020 [facility] 5 mg 07/09/2020 12:00:00 AM EST tablet 60 TAKE ONE TABLET BY MOUTH TWICE A DAY TAKE ONE TABLET BY MOUTH TWICE A DAY SOLD: 11/04/2020 [facility] 75 mg 07/09/2020 12:00:00 AM EST capsule,extended releas e 24hr 30 TAKE ONE CAPSULE BY MOUTH EVERY MORNING TAKE ONE CAPSULE BY MOUTH EVERY MORNING SOLD: 09/04/2020 [facility] 5 mg 07/09/2020 12:00:00 AM EST tablet 60 TAKE ONE TABLET BY MOUTH TWICE A DAY TAKE ONE TABLET BY MOUTH TWICE A DAY SOLD: 10/02/2020 [facility] 5 mg 07/09/2020 12:00:00 AM EST tablet 60 TAKE ONE TABLET BY MOUTH TWICE A DAY TAKE ONE TABLET BY MOUTH TWICE A DAY SOLD: 09/04/2020 [facility] 150 mg 07/09/2020 12:00:00 AM EST capsule 90 TAKE ONE CAPSULE BY MOUTH THREE TIMES A DAY, MAXIMUM DAILY DOSE = 3 TAKE ONE CAPSULE BY MOUTH THREE TIMES A DAY, MAXIMUM DAILY DOSE = 3 SOLD: 08/07/2020 [facility] 5-325 mg 07/09/2020 12:00:00 AM EST tablet 30 TAKE ONE TABLET BY MOUTH 6 TIMES A DAY NEEDED, MAXIMUM DAILY DOSE = SIX TABLETS TAKE ONE TABLET BY MOUTH 6 TIMES A DAY NEEDED, MAXIMUM DAILY DOSE = SIX TABLETS SOLD: 07/09/2020 [facility] 150 mg 07/09/2020 12:00:00 AM EST capsule 90 TAKE ONE CAPSULE BY MOUTH THREE TIMES A DAY, MAXIMUM DAILY DOSE = 3 TAKE ONE CAPSULE BY MOUTH THREE TIMES A DAY, MAXIMUM DAILY DOSE = 3 SOLD: 07/09/2020 [facility] 75 mg 07/09/2020 12:00:00 AM EST capsule,extended releas e 24hr 30 TAKE ONE CAPSULE BY MOUTH EVERY MORNING TAKE ONE CAPSULE BY MOUTH EVERY MORNING SOLD: 08/07/2020 [facility] midodrine hydrochloride 5 MG Oral Tablet Midodrine HCL 07/09/2020 12:00:00 AM EST ORAL active MEDENT ([facility]) 5 mg 07/09/2020 12:00:00 AM EST tablet 60 TAKE ONE TABLET BY MOUTH TWICE A DAY TAKE ONE TABLET BY MOUTH TWICE A DAY SOLD: 08/07/2020 [facility] 75 mg 07/09/2020 12:00:00 AM EST capsule,extended releas e 24hr 30 TAKE ONE CAPSULE BY MOUTH EVERY MORNING TAKE ONE CAPSULE BY MOUTH EVERY MORNING SOLD: 12/05/2020 [facility] 150 mg 07/09/2020 12:00:00 AM EST capsule 90 TAKE ONE CAPSULE BY MOUTH THREE TIMES A DAY, MAXIMUM DAILY DOSE = 3 TAKE ONE CAPSULE BY MOUTH THREE TIMES A DAY, MAXIMUM DAILY DOSE = 3 SOLD: 12/05/2020 [facility] 75 mg 07/09/2020 12:00:00 AM EST capsule,extended releas e 24hr 30 TAKE ONE CAPSULE BY MOUTH EVERY MORNING TAKE ONE CAPSULE BY MOUTH EVERY MORNING SOLD: 07/09/2020 [facility] 5 mg 07/09/2020 12:00:00 AM EST tablet 60 TAKE ONE TABLET BY MOUTH TWICE A DAY TAKE ONE TABLET BY MOUTH TWICE A DAY SOLD: 07/09/2020 [facility] 75 mg 07/09/2020 12:00:00 AM EST capsule,extended releas e 24hr 30 TAKE ONE CAPSULE BY MOUTH EVERY MORNING TAKE ONE CAPSULE BY MOUTH EVERY MORNING SOLD: 10/02/2020 [facility] 150 mg 07/09/2020 12:00:00 AM EST capsule 90 TAKE ONE CAPSULE BY MOUTH THREE TIMES A DAY, MAXIMUM DAILY DOSE = 3 TAKE ONE CAPSULE BY MOUTH THREE TIMES A DAY, MAXIMUM DAILY DOSE = 3 SOLD: 11/07/2020 [facility] 75 mg 07/09/2020 12:00:00 AM EST capsule,extended releas e 24hr 30 TAKE ONE CAPSULE BY MOUTH EVERY MORNING TAKE ONE CAPSULE BY MOUTH EVERY MORNING SOLD: 11/04/2020 [facility] 150 mg 07/09/2020 12:00:00 AM EST capsule 90 TAKE ONE CAPSULE BY MOUTH THREE TIMES A DAY, MAXIMUM DAILY DOSE = 3 TAKE ONE CAPSULE BY MOUTH THREE TIMES A DAY, MAXIMUM DAILY DOSE = 3 SOLD: 10/08/2020 [facility] 5 mg 07/09/2020 12:00:00 AM EST tablet 60 TAKE ONE TABLET BY MOUTH TWICE A DAY TAKE ONE TABLET BY MOUTH TWICE A DAY SOLD: 12/05/2020 [facility] 5-325 mg 07/02/2020 12:00:00 AM EST tablet 30 TAKE ONE TABLET BY MOUTH 6 TIMES A DAY NEEDED , MAXIMUM DAILY DOSE = 6 TABLETS TAKE ONE TABLET BY MOUTH 6 TIMES A DAY NEEDED , MAXIMUM DAILY DOSE = 6 TABLETS SOLD: 07/02/2020 [facility] 100 unit/mL 06/28/2020 12:00:00 AM EST solution 20 USE DIRECTED WITH PUMP, MAXIMUM DAILY DOSE = 50 UNITS USE DIRECTED WITH PUMP, MAXIMUM DAILY DOSE = 50 UNITS SOLD: 09/04/2020 [facility] 100 unit/mL 06/28/2020 12:00:00 AM EST solution 20 USE DIRECTED WITH PUMP, MAXIMUM DAILY DOSE = 50 UNITS USE DIRECTED WITH PUMP, MAXIMUM DAILY DOSE = 50 UNITS SOLD: 06/30/2020 [facility] 5-325 mg 06/22/2020 12:00:00 AM EST tablet 30 TAKE ONE TABLET BY MOUTH SIX TIMES DAILY NEEDED MAXIMUM DAILY DOSE = 6 TAKE ONE TABLET BY MOUTH SIX TIMES DAILY NEEDED MAXIMUM DAILY DOSE = 6 SOLD: 06/22/2020 [facility] 5-325 mg 06/11/2020 12:00:00 AM EDT tablet 30 TAKE ONE TABLET BY MOUTH 6 TIMES A DAY NEEDED, MAXIMUM DAILY DOSE = SIX TABLETS TAKE ONE TABLET BY MOUTH 6 TIMES A DAY NEEDED, MAXIMUM DAILY DOSE = SIX TABLETS SOLD: 06/12/2020 [facility] 5-325 mg 06/02/2020 12:00:00 AM EDT tablet 30 TAKE ONE TABLET BY MOUTH EVERY 12 HOURS NEEDED FOR SEVERE PAIN MAXIMUM DAILY DOSE = 2 TAKE ONE TABLET BY MOUTH EVERY 12 HOURS NEEDED FOR SEVERE PAIN MAXIMUM DAILY DOSE = 2 SOLD: 06/02/2020 [facility] Sulfamethoxazole 800 MG / Trimethoprim 160 MG Oral Tab let 800-160 mg SULFAMETHOXAZOLE/TRIMETHOPRIM 05/24/2020 12:00:00 AM EDT tablet 20 TAKE ONE TABLET BY MOUTH TWICE A DAY TAKE ONE TABLET BY MOUTH TWICE A DAY SOLD: 05/31/2020 [facility] 5-325 mg 05/19/2020 12:00:00 AM EDT tablet 30 TAKE ONE TABLET BY MOUTH EVERY 12 HOURS NEEDED FOR SEVERE PAIN MAXIMUM DAILY DOSE = 2 TABLETS TAKE ONE TABLET BY MOUTH EVERY 12 HOURS NEEDED FOR SEVERE PAIN MAXIMUM DAILY DOSE = 2 TABLETS SOLD: 05/19/2020 [facility] pantoprazole 20 MG Delayed Release Oral Tablet Pantoprazole Sodium 05/14/2020 12:00:00 AM EDT active Christal DICKEY ([facility]) 20 mg 05/14/2020 12:00:00 AM EDT tablet,delayed release (DR/EC) 60 TAKE ONE TABLET BY MOUTH TWICE A DAY TAKE ONE TABLET BY MOUTH TWICE A DAY SOLD: 06/10/2020 [facility] 20 mg 05/14/2020 12:00:00 AM EDT tablet,delayed release (DR/EC) 60 TAKE ONE TABLET BY MOUTH TWICE A DAY TAKE ONE TABLET BY MOUTH TWICE A DAY SOLD: 07/09/2020 [facility] 20 mg 05/14/2020 12:00:00 AM EDT tablet,delayed release (DR/EC) 60 TAKE ONE TABLET BY MOUTH TWICE A DAY TAKE ONE TABLET BY MOUTH TWICE A DAY SOLD: 05/14/2020 [facility] 10 mg 05/07/2020 12:00:00 AM EDT tablet 60 TAKE ONE TABLET BY MOUTH TWICE A DAY TAKE ONE TABLET BY MOUTH TWICE A DAY SOLD: 05/12/2020 [facility] midodrine hydrochloride 10 MG Oral Tablet Midodrine HCL 05/07/2020 12:00:00 AM EDT completed [facility] ([facility]) 5-325 mg 05/05/2020 12:00:00 AM EDT tablet 30 TAKE ONE TABLET BY MOUTH EVERY 12 HOURS NEEDED FOR SEVERE PAIN , MAXIMUM DAILY DOSE = 2 TABLETS TAKE ONE TABLET BY MOUTH EVERY 12 HOURS NEEDED FOR SEVERE PAIN , MAXIMUM DAILY DOSE = 2 TABLETS SOLD: 05/05/2020 [facility] Sulfamethoxazole 800 MG / Trimethoprim 160 MG Oral Tab let 800-160 mg SULFAMETHOXAZOLE/TRIMETHOPRIM 04/26/2020 12:00:00 AM EDT tablet 20 TAKE ONE TABLET BY MOUTH TWICE A DAY TAKE ONE TABLET BY MOUTH TWICE A DAY SOLD: 04/26/2020 [facility] Sulfamethoxazole 800 MG / Trimethoprim 1 60 MG Oral Tablet sulfamethoxazole- trimethoprim (BACTRIM DS,SEPTRA DS) 800-160 MG per tablet sulfamethoxazole- trimethoprim (BACTRIM DS,SEPTRA DS) 800-160 MG per tablet 04/26/2020 12:00:00 AM EDT 1 {tbl} Oral aborted Take 1 tablet b y mouth 2 (two) times a day [facility] 5-325 mg 04/21/2020 12:00:00 AM EDT tablet 30 TAKE ONE TABLET BY MOUTH EVERY 12 HOURS FOR SEVERE PAIN, MAXIMUM DAILY DOSE = TWO TABLETS TAKE ONE TABLET BY MOUTH EVERY 12 HOURS FOR SEVERE PAIN, MAXIMUM DAILY DOSE = TWO TABLETS SOLD: 04/21/2020 [facility] 17 gram/dose 04/09/2020 12:00:00 AM EDT powder 510 MIX 17 GRAMS IN LIQUID AND TAKE BY MOUTH ONCE DAILY MIX 17 GRAMS IN LIQUID AND TAKE BY MOUTH ONCE DAILY SOLD: 04/19/2020 [facility] 17 gram/dose 04/09/2020 12:00:00 AM EDT powder 510 MIX 17 GRAMS IN LIQUID AND TAKE BY MOUTH ONCE DAILY MIX 17 GRAMS IN LIQUID AND TAKE BY MOUTH ONCE DAILY SOLD: 11/04/2020 [facility] 17 gram/dose 04/09/2020 12:00:00 AM EDT powder 510 MIX 17 GRAMS IN LIQUID AND TAKE BY MOUTH ONCE DAILY MIX 17 GRAMS IN LIQUID AND TAKE BY MOUTH ONCE DAILY SOLD: 06/30/2020 [facility] 17 gram/dose 04/09/2020 12:00:00 AM EDT powder 510 MIX 17 GRAMS IN LIQUID AND TAKE BY MOUTH ONCE DAILY MIX 17 GRAMS IN LIQUID AND TAKE BY MOUTH ONCE DAILY SOLD: 10/02/2020 [facility] 17 gram/dose 04/09/2020 12:00:00 AM EDT powder 510 MIX 17 GRAMS IN LIQUID AND TAKE BY MOUTH ONCE DAILY MIX 17 GRAMS IN LIQUID AND TAKE BY MOUTH ONCE DAILY SOLD: 09/04/2020 [facility] 100 unit/mL 03/18/2020 12:00:00 AM EDT solution 20 USE DIRECTED IN PUMP MAXIMUM DAILY DOSE = 50 UNITS USE DIRECTED IN PUMP MAXIMUM DAILY DO SE = 50 UNITS SOLD: 06/06/2020 [facility] 100 unit/mL 03/18/2020 12:00:00 AM EDT solution 20 USE DIRECTED IN PUMP MAXIMUM DAILY DOSE = 50 UNITS USE DIRECTED IN PUMP MAXIMUM DAILY DO SE = 50 UNITS SOLD: 04/19/2020 [facility] 150 mg 03/06/2020 12:00:00 AM EDT capsule 90 TAKE ONE CAPSULE BY MOUTH THREE TIMES A DAY FOR DIABETIC NEUROPATHY, MAXIMUM DAILY DOSE = 3 CAPSULES TAKE ONE CAPSULE BY MOUTH THREE TIMES A DAY FOR DIABETIC NEUROPATHY, MAXIMUM DAILY DOSE = 3 CAPSULES SOLD: 06/10/2020 [facility] 150 mg 03/06/2020 12:00:00 AM EDT capsule 90 TAKE ONE CAPSULE BY MOUTH THREE TIMES A DAY FOR DIABETIC NEUROPATHY, MAXIMUM DAILY DOSE = 3 CAPSULES TAKE ONE CAPSULE BY MOUTH THREE TIMES A DAY FOR DIABETIC NEUROPATHY, MAXIMUM DAILY DOSE = 3 CAPSULES SOLD: 05/12/2020 [facility] 75 mg 03/05/2020 12:00:00 AM EDT capsule,extended releas e 24hr 30 TAKE ONE CAPSULE BY MOUTH EVERY MORNING, MAXIMUM DAILY DOSE = 1 CAPSULE TAKE ONE CAPSULE BY MOUTH EVERY MORNING, MAXIMUM DAILY DOSE = 1 CAPSULE SOLD: 05/31/2020 [facility] 75 mg 03/05/2020 12:00:00 AM EDT capsule,extended releas e 24hr 30 TAKE ONE CAPSULE BY MOUTH EVERY MORNING, MAXIMUM DAILY DOSE = 1 CAPSULE TAKE ONE CAPSULE BY MOUTH EVERY MORNING, MAXIMUM DAILY DOSE = 1 CAPSULE SOLD: 05/05/2020 [facility] atorvastatin 20 MG Oral Tablet ATORVASTATIN CALCIUM 02/10/2020 1 2:00:00 AM EDT tablet 30 TAKE ONE TABLET BY MOUTH EVERY D AY TAKE ONE TABLET BY MOUTH EVERY DAY SOLD: 06/06/2020 [facility] atorvastatin 20 MG Oral Tablet ATORVASTATIN CALCIUM 02/10/2020 1 2:00:00 AM EDT tablet 30 TAKE ONE TABLET BY MOUTH EVERY D AY TAKE ONE TABLET BY MOUTH EVERY DAY SOLD: 07/09/2020 [facility] atorvastatin 20 MG Oral Tablet ATORVASTATIN CALCIUM 02/10/2020 1 2:00:00 AM EDT tablet 30 TAKE ONE TABLET BY MOUTH EVERY D AY TAKE ONE TABLET BY MOUTH EVERY DAY SOLD: 05/12/2020 [facility] 25 mg 01/24/2020 12:00:00 AM EDT tablet 180 TAKE ONE TABLET BY MOUTH TWICE A DAY TAKE ONE TABLET BY MOUTH TWICE A DAY SOLD: 04/19/2020 [facility] 12 % 01/19/2020 12:00:00 AM EDT cream 140 APPLY TO FEET ONCE DAILY APPLY TO FEET ONCE DAILY SOLD: 05/05/2020 [facility] 100 mg 01/18/2020 12:00:00 AM EDT capsule 30 TAKE ONE CAPSULE BY MOUTH EVERY DAY TAKE ONE CAPSULE BY MOUTH EVERY DAY SOLD: 05/31/2020 [facility] 100 mg 01/18/2020 12:00:00 AM EDT capsule 30 TAKE ONE CAPSULE BY MOUTH EVERY DAY TAKE ONE CAPSULE BY MOUTH EVERY DAY SOLD: 06/30/2020 [facility] 100 mg 01/18/2020 12:00:00 AM EDT capsule 30 TAKE ONE CAPSULE BY MOUTH EVERY DAY TAKE ONE CAPSULE BY MOUTH EVERY DAY SOLD: 04/19/2020 [facility] 40 mg 01/18/2020 12:00:00 AM EDT tablet,delayed release (DR/EC) 30 TAKE ONE TABLET BY MOUTH EVERY DAY TAKE ONE TABLET BY MOUTH EVERY DAY SOLD: 04/19/2020 [facility] BLOOD SUGAR DIAGNOSTIC 01/16/2020 12:00:00 AM EDT strip 100 USE DIRECTED FOUR TIMES A DAY USE DIRECTED FOUR TIMES A DAY SOLD: 06/30/2020 [facility] BLOOD SUGAR DIAGNOSTIC 01/16/2020 12:00:00 AM EDT strip 100 USE DIRECTED FOUR TIMES A DAY USE DIRECTED FOUR TIMES A DAY SOLD: 05/31/2020 [facility] BLOOD SUGAR DIAGNOSTIC 01/16/2020 12:00:00 AM EDT strip 100 USE DIRECTED FOUR TIMES A DAY USE DIRECTED FOUR TIMES A DAY SOLD: 04/19/2020 [facility] midodrine hydrochloride 10 MG Oral Tablet midodrine (P ROAMATINE) 10 MG tablet midodrine (PROAMATINE) 10 MG tablet 01/07/2020 12:00:00 AM EDT 1 {tbl } Oral aborted Take 1 tablet by mouth 2 (tw o) times a day [facility] POLYETHYLENE GLYCOL 3350 142 MG/ML Oral Solution polyethylene glycol (GLYCOLAX) powder polyethylene glycol (GLYCOLAX) powder 07/18/2019 12:00:00 AM EST aborted as needed As directed [facility] pantoprazole 40 MG Delayed Release Oral Tablet pantoprazole (PROTONIX) 40 MG tablet pantoprazole (PROTONIX) 40 MG tablet 06/03/2018 12:00:00 AM EDT aborted daily [facility] Insulin Lispro 100 UNT/ML Injectable Karmen ution insulin lispro (ADMELOG) 100 UNIT/ML injection insulin lispro (ADMELOG) 100 UNIT/ML injection 018 12:00:00 AM EDT aborted As dire cted [facility] pregabalin 75 MG Oral Capsule pregabalin 75 mg capsule prega balin 75 mg capsule completed pregabalin 75 MG Oral Capsule [facility] ([facility]) ferrous sulfate 325 MG Delayed Release O ral Tablet ferrous sulfate 325 mg (65 mg iron) tablet,delayed release ferrous sulfate 325 mg (65 mg iron) tabl et,delayed release completed ferrou s sulfate 325 MG Delayed Release Oral Tablet [facility] ([facility]) ropinirole 0.25 MG Oral Tablet ropinirole 0.25 mg tabl et ropinirole 0.25 mg tablet completed ropinirole 0.25 MG Oral Tablet [facility] ([facility]) gabapentin 400 MG Oral Capsule gabapentin 400 mg capsu le gabapentin 400 mg capsule completed gabapentin 400 MG Oral Capsule [facility] ([facility]) Acetaminophen 325 MG / Oxycodone Hydroch loride 5 MG Oral Tablet oxycodone- acetaminophen 5 mg-325 mg tablet oxycodone-acetaminophen 5 mg-325 mg tablet completed acetaminop hen 325 MG / oxycodone hydrochloride 5 MG Oral Tablet [facility] ([facility]) carvedilol 12.5 MG Oral Tablet carvedilol 12.5 mg tabl et carvedilol 12.5 mg tablet completed carvedilol 12.5 MG Oral Tablet [facility] ([facility]) pregabalin 75 MG Oral Capsule pregabalin 75 mg capsule prega balin 75 mg capsule completed pregabalin 75 MG Oral Capsule [facility] ([facility]) Sulfamethoxazole 800 MG / Trimethoprim 1 60 MG Oral Tablet sulfamethoxazole 800 mg-trimethoprim 160 mg tablet sulfamethoxazole 800 mg-trimethoprim 160 mg tablet completed sulfame thoxazole 800 MG / trimethoprim 160 MG Oral Tablet [facility] ([facility]) carvedilol 12.5 MG Oral Tablet carvedilol 12.5 mg tabl et carvedilol 12.5 mg tablet completed carvedilol 12.5 MG Oral Tablet [facility] ([facility]) linezolid 600 MG Oral Tablet linezolid 600 mg tablet linezolid 6 00 mg tablet completed linezolid 600 MG Oral Tablet FRAN[facility] ([facility]) Acetaminophen 325 MG / Oxycodone Hydroch loride 5 MG Oral Tablet oxycodone- acetaminophen 5 mg-325 mg tablet oxycodone-acetaminophen 5 mg-325 mg tablet completed acetaminop hen 325 MG / oxycodone hydrochloride 5 MG Oral Tablet [facility]ANCK ([facility]) ferrous sulfate 325 MG Delayed Release O ral Tablet ferrous sulfate 325 mg (65 mg iron) tablet,delayed release ferrous sulfate 325 mg (65 mg iron) tabl et,delayed release completed ferrou s sulfate 325 MG Delayed Release Oral Tablet FRANCK ([facility]) carvedilol 12.5 MG Oral Tablet carvedilol 12.5 mg tabl et carvedilol 12.5 mg tablet completed carvedilol 12.5 MG Oral Tablet [facility] ([facility]) duloxetine 60 MG Delayed Release Oral Ca psule duloxetine 60 mg capsule,delayed release duloxetine 60 mg capsule,delayed release completed duloxetine 60 MG Delayed Release Oral Capsule [facility] ([facility]) carvedilol 12.5 MG Oral Tablet carvedilol 12.5 mg tabl et carvedilol 12.5 mg tablet completed carvedilol 12.5 MG Oral Tablet [facility] ([facility]) Sulfamethoxazole 800 MG / Trimethoprim 1 60 MG Oral Tablet sulfamethoxazole 800 mg-trimethoprim 160 mg tablet sulfamethoxazole 800 mg-trimethoprim 160 mg tablet completed sulfame thoxazole 800 MG / trimethoprim 160 MG Oral Tablet [facility] ([facility]) midodrine hydrochloride 10 MG Oral Tablet midodrine 10 mg tablet midodrine 10 mg tablet completed midodrine hydro chloride 10 MG Oral Tablet [facility] ([facility]) pregabalin 75 MG Oral Capsule pregabalin 75 mg capsule prega balin 75 mg capsule completed pregabalin 75 MG Oral Capsule [facility] ([facility]) 24 HR venlafaxine 37.5 MG Extended Relea se Oral Capsule venlafaxine ER 37.5 mg capsule,extended release 24 hr venlafaxine ER 37.5 mg capsule,extended release 24 hr completed 24 HR v enlafaxine 37.5 MG Extended Release Oral Capsule [facility] ([facility]) ferrous sulfate 325 MG Oral Tablet ferrous sulfate 325 mg (65 mg iron) tablet ferrous sulfate 325 mg (65 mg iron) tablet completed ferrous sulfate 325 MG Oral Tablet [facility] ([facility]) Sulfamethoxazole 800 MG / Trimethoprim 1 60 MG Oral Tablet sulfamethoxazole 800 mg-trimethoprim 160 mg tablet sulfamethoxazole 800 mg-trimethoprim 160 mg tablet completed sulfame thoxazole 800 MG / trimethoprim 160 MG Oral Tablet [facility] ([facility]) ropinirole 0.25 MG Oral Tablet ropinirole 0.25 mg tabl et ropinirole 0.25 mg tablet completed ropinirole 0.25 MG Oral Tablet [facility] ([facility]) pantoprazole 40 MG Delayed Release Oral Tablet pantoprazole 40 mg tablet,delayed release pantoprazole 40 mg tablet,delayed release completed pantoprazole 40 MG Delayed Release Oral Tablet [facility] ([facility]) ferrous sulfate 325 MG Oral Tablet ferrous sulfate 325 mg (65 mg iron) tablet ferrous sulfate 325 mg (65 mg iron) tablet completed ferrous sulfate 325 MG Oral Tablet [facility] ([facility]) midodrine hydrochloride 10 MG Oral Tablet midodrine 10 mg tablet midodrine 10 mg tablet completed midodrine hydro chloride 10 MG Oral Tablet [facility] ([facility]) duloxetine 60 MG Delayed Release Oral Ca psule duloxetine 60 mg capsule,delayed release duloxetine 60 mg capsule,delayed release completed duloxetine 60 MG Delayed Release Oral Capsule [facility] ([facility]) linezolid 600 MG Oral Tablet linezolid 600 mg tablet linezolid 6 00 mg tablet completed linezolid 600 MG Oral Tablet [facility] ([facility]) pantoprazole 20 MG Delayed Release Oral Tablet pantoprazole 20 mg tablet,delayed release TAKE ONE TABLET BY MOUTH TWICE A DAY pantoprazole 20 mg tablet,delayed release TAKE ONE TABLET BY MOUTH TWICE A DAY completed pantoprazole 20 MG Delayed Release Oral Tablet [facility] ([facility]) gabapentin 400 MG Oral Capsule gabapentin 400 mg capsu le gabapentin 400 mg capsule completed gabapentin 400 MG Oral Capsule [facility]) gabapentin 400 MG Oral Capsule gabapentin 400 mg capsu le gabapentin 400 mg capsule completed gabapentin 400 MG Oral Capsule [facility]) 24 HR venlafaxine 37.5 MG Extended Relea se Oral Capsule venlafaxine ER 37.5 mg capsule,extended release 24 hr venlafaxine ER 37.5 mg capsule,extended release 24 hr completed 24 HR v enlafaxine 37.5 MG Extended Release Oral Capsule [facility]) pantoprazole 40 MG Delayed Release Oral Tablet pantoprazole 40 mg tablet,delayed release pantoprazole 40 mg tablet,delayed release completed pantoprazole 40 MG Delayed Release Oral Tablet [facility] ([facility]) pregabalin 75 MG Oral Capsule pregabalin 75 mg capsule prega balin 75 mg capsule completed pregabalin 75 MG Oral Capsule [facility] ([facility]) pregabalin 75 MG Oral Capsule pregabalin 75 mg capsule prega balin 75 mg capsule completed pregabalin 75 MG Oral Capsule [facility] ([facility]) Acetaminophen 325 MG / Oxycodone Hydroch loride 5 MG Oral Tablet oxycodone- acetaminophen 5 mg-325 mg tablet oxycodone-acetaminophen 5 mg-325 mg tablet completed acetaminop hen 325 MG / oxycodone hydrochloride 5 MG Oral Tablet [facility] ([facility]) 24 HR venlafaxine 37.5 MG Extended Relea se Oral Capsule venlafaxine ER 37.5 mg capsule,extended release 24 hr venlafaxine ER 37.5 mg capsule,extended release 24 hr completed 24 HR v enlafaxine 37.5 MG Extended Release Oral Capsule [facility] ([facility]) Sulfamethoxazole 800 MG / Trimethoprim 1 60 MG Oral Tablet sulfamethoxazole 800 mg-trimethoprim 160 mg tablet sulfamethoxazole 800 mg-trimethoprim 160 mg tablet completed sulfame thoxazole 800 MG / trimethoprim 160 MG Oral Tablet [facility] ([facility]) pantoprazole 20 MG Delayed Release Oral Tablet pantoprazole 20 mg tablet,delayed release TAKE ONE TABLET BY MOUTH TWICE A DAY pantoprazole 20 mg tablet,delayed release TAKE ONE TABLET BY MOUTH TWICE A DAY completed pantoprazole 20 MG Delayed Release Oral Tablet [facility] ([facility]) 24 HR venlafaxine 37.5 MG Extended Relea se Oral Capsule venlafaxine ER 37.5 mg capsule,extended release 24 hr venlafaxine ER 37.5 mg capsule,extended release 24 hr completed 24 HR v enlafaxine 37.5 MG Extended Release Oral Capsule [facility] ([facility]) duloxetine 60 MG Delayed Release Oral Ca psule duloxetine 60 mg capsule,delayed release duloxetine 60 mg capsule,delayed release completed duloxetine 60 MG Delayed Release Oral Capsule [facility] ([facility]) 24 HR venlafaxine 37.5 MG Extended Relea se Oral Capsule venlafaxine ER 37.5 mg capsule,extended release 24 hr venlafaxine ER 37.5 mg capsule,extended release 24 hr completed 24 HR v enlafaxine 37.5 MG Extended Release Oral Capsule [facility] ([facility]) Acetaminophen 325 MG / Oxycodone Hydroch loride 5 MG Oral Tablet oxycodone- acetaminophen 5 mg-325 mg tablet oxycodone-acetaminophen 5 mg-325 mg tablet completed acetaminop hen 325 MG / oxycodone hydrochloride 5 MG Oral Tablet [facility] ([facility]) pregabalin 75 MG Oral Capsule pregabalin 75 mg capsule prega balin 75 mg capsule completed pregabalin 75 MG Oral Capsule [facility] ([facility]) ferrous sulfate 325 MG Delayed Release O ral Tablet ferrous sulfate 325 mg (65 mg iron) tablet,delayed release ferrous sulfate 325 mg (65 mg iron) tabl et,delayed release completed ferrou s sulfate 325 MG Delayed Release Oral Tablet [facility] ([facility]) midodrine hydrochloride 10 MG Oral Tablet midodrine 10 mg tablet midodrine 10 mg tablet completed midodrine hydro chloride 10 MG Oral Tablet [facility] ([facility]) linezolid 600 MG Oral Tablet linezolid 600 mg tablet linezolid 6 00 mg tablet completed linezolid 600 MG Oral Tablet [facility] ([facility]) ropinirole 0.25 MG Oral Tablet ropinirole 0.25 mg tabl et ropinirole 0.25 mg tablet completed ropinirole 0.25 MG Oral Tablet [facility] ([facility]) carvedilol 12.5 MG Oral Tablet carvedilol 12.5 mg tabl et carvedilol 12.5 mg tablet completed carvedilol 12.5 MG Oral Tablet [facility] ([facility]) midodrine hydrochloride 10 MG Oral Tablet midodrine 10 mg tablet midodrine 10 mg tablet completed midodrine hydro chloride 10 MG Oral Tablet [facility] ([facility]) pantoprazole 20 MG Delayed Release Oral Tablet pantoprazole 20 mg tablet,delayed release TAKE ONE TABLET BY MOUTH TWICE A DAY pantoprazole 20 mg tablet,delayed release TAKE ONE TABLET BY MOUTH TWICE A DAY completed pantoprazole 20 MG Delayed Release Oral Tablet [facility] ([facility]) duloxetine 60 MG Delayed Release Oral Ca psule duloxetine 60 mg capsule,delayed release duloxetine 60 mg capsule,delayed release completed duloxetine 60 MG Delayed Release Oral Capsule [facility] ([facility]) ferrous sulfate 325 MG Delayed Release O ral Tablet ferrous sulfate 325 mg (65 mg iron) tablet,delayed release ferrous sulfate 325 mg (65 mg iron) tabl et,delayed release completed ferrou s sulfate 325 MG Delayed Release Oral Tablet [facility] ([facility]) Sulfamethoxazole 800 MG / Trimethoprim 1 60 MG Oral Tablet sulfamethoxazole 800 mg-trimethoprim 160 mg tablet sulfamethoxazole 800 mg-trimethoprim 160 mg tablet completed sulfame thoxazole 800 MG / trimethoprim 160 MG Oral Tablet [facility] ([facility]) gabapentin 400 MG Oral Capsule gabapentin 400 mg capsu le gabapentin 400 mg capsule completed gabapentin 400 MG Oral Capsule [facility] ([facility]) Acetaminophen 325 MG / Oxycodone Hydroch loride 5 MG Oral Tablet oxycodone- acetaminophen 5 mg-325 mg tablet oxycodone-acetaminophen 5 mg-325 mg tablet completed acetaminop hen 325 MG / oxycodone hydrochloride 5 MG Oral Tablet [facility] ([facility]) midodrine hydrochloride 10 MG Oral Tablet midodrine 10 mg tablet midodrine 10 mg tablet completed midodrine hydro chloride 10 MG Oral Tablet [facility] ([facility]) ferrous sulfate 325 MG Oral Tablet ferrous sulfate 325 mg (65 mg iron) tablet ferrous sulfate 325 mg (65 mg iron) tablet completed ferrous sulfate 325 MG Oral Tablet [facility] ([facility]) 24 HR venlafaxine 37.5 MG Extended Relea se Oral Capsule venlafaxine ER 37.5 mg capsule,extended release 24 hr venlafaxine ER 37.5 mg capsule,extended release 24 hr completed 24 HR v enlafaxine 37.5 MG Extended Release Oral Capsule [facility] ([facility]) gabapentin 400 MG Oral Capsule gabapentin 400 mg capsu le gabapentin 400 mg capsule completed gabapentin 400 MG Oral Capsule [facility] ([facility]) ferrous sulfate 325 MG Oral Tablet ferrous sulfate 325 mg (65 mg iron) tablet ferrous sulfate 325 mg (65 mg iron) tablet completed ferrous sulfate 325 MG Oral Tablet [facility] ([facility]) Sulfamethoxazole 800 MG / Trimethoprim 1 60 MG Oral Tablet sulfamethoxazole 800 mg-trimethoprim 160 mg tablet sulfamethoxazole 800 mg-trimethoprim 160 mg tablet completed sulfame thoxazole 800 MG / trimethoprim 160 MG Oral Tablet [facility] ([facility]) pregabalin 75 MG Oral Capsule pregabalin 75 mg capsule prega balin 75 mg capsule completed pregabalin 75 MG Oral Capsule [facility] ([facility]) linezolid 600 MG Oral Tablet linezolid 600 mg tablet linezolid 6 00 mg tablet completed linezolid 600 MG Oral Tablet [facility] ([facility]) ferrous sulfate 325 MG Oral Tablet ferrous sulfate 325 mg (65 mg iron) tablet ferrous sulfate 325 mg (65 mg iron) tablet completed ferrous sulfate 325 MG Oral Tablet [facility] ([facility]) ferrous sulfate 325 MG Oral Tablet ferrous sulfate 325 mg (65 mg iron) tablet ferrous sulfate 325 mg (65 mg iron) tablet completed ferrous sulfate 325 MG Oral Tablet [facility] ([facility]) duloxetine 60 MG Delayed Release Oral Ca psule duloxetine 60 mg capsule,delayed release duloxetine 60 mg capsule,delayed release completed duloxetine 60 MG Delayed Release Oral Capsule [facility] ([facility]) pantoprazole 20 MG Delayed Release Oral Tablet pantoprazole (PROTONIX) 20 MG tablet pantoprazole (PROTONIX) 20 MG tablet 1 {tbl} Oral aborted Take 1 tablet by mouth 2 (two) times a day [facility] ropinirole 0.25 MG Oral Tablet ropinirole 0.25 mg tabl et ropinirole 0.25 mg tablet completed ropinirole 0.25 MG Oral Tablet [facility] ([facility]) linezolid 600 MG Oral Tablet linezolid 600 mg tablet linezolid 6 00 mg tablet completed linezolid 600 MG Oral Tablet [facility] ([facility]) gabapentin 400 MG Oral Capsule gabapentin 400 mg capsu le gabapentin 400 mg capsule completed gabapentin 400 MG Oral Capsule [facility] ([facility]) ferrous sulfate 325 MG Oral Tablet ferrous sulfate 325 mg (65 mg iron) tablet ferrous sulfate 325 mg (65 mg iron) tablet completed ferrous sulfate 325 MG Oral Tablet [facility] ([facility]) ropinirole 0.25 MG Oral Tablet ropinirole 0.25 mg tabl et ropinirole 0.25 mg tablet completed ropinirole 0.25 MG Oral Tablet [facility] ([facility]) duloxetine 60 MG Delayed Release Oral Ca psule duloxetine 60 mg capsule,delayed release duloxetine 60 mg capsule,delayed release completed duloxetine 60 MG Delayed Release Oral Capsule [facility] ([facility]) Acetaminophen 325 MG / Oxycodone Hydroch loride 5 MG Oral Tablet oxycodone- acetaminophen 5 mg-325 mg tablet oxycodone-acetaminophen 5 mg-325 mg tablet completed acetaminop hen 325 MG / oxycodone hydrochloride 5 MG Oral Tablet [facility] ([facility]) duloxetine 60 MG Delayed Release Oral Ca psule duloxetine 60 mg capsule,delayed release duloxetine 60 mg capsule,delayed release completed duloxetine 60 MG Delayed Release Oral Capsule [facility] ([facility]) ferrous sulfate 325 MG Oral Tablet ferrous sulfate 325 mg (65 mg iron) tablet ferrous sulfate 325 mg (65 mg iron) tablet completed ferrous sulfate 325 MG Oral Tablet [facility] ([facility]) linezolid 600 MG Oral Tablet linezolid 600 mg tablet linezolid 6 00 mg tablet completed linezolid 600 MG Oral Tablet [facility] ([facility]) Sulfamethoxazole 800 MG / Trimethoprim 1 60 MG Oral Tablet sulfamethoxazole 800 mg-trimethoprim 160 mg tablet sulfamethoxazole 800 mg-trimethoprim 160 mg tablet completed sulfame thoxazole 800 MG / trimethoprim 160 MG Oral Tablet [facility] ([facility]) ferrous sulfate 325 MG Delayed Release O ral Tablet ferrous sulfate 325 mg (65 mg iron) tablet,delayed release ferrous sulfate 325 mg (65 mg iron) tabl et,delayed release completed ferrou s sulfate 325 MG Delayed Release Oral Tablet [facility] ([facility]) midodrine hydrochloride 10 MG Oral Tablet midodrine 10 mg tablet midodrine 10 mg tablet completed midodrine hydro chloride 10 MG Oral Tablet [facility] ([facility]) midodrine hydrochloride 10 MG Oral Tablet midodrine 10 mg tablet midodrine 10 mg tablet completed midodrine hydro chloride 10 MG Oral Tablet [facility] ([facility]) glucose blood test strip [id number] aborted Contour Next Test Strips [facility] pantoprazole 20 MG Delayed Release Oral Tablet pantoprazole 20 mg tablet,delayed release TAKE ONE TABLET BY MOUTH TWICE A DAY pantoprazole 20 mg tablet,delayed release TAKE ONE TABLET BY MOUTH TWICE A DAY completed pantoprazole 20 MG Delayed Release Oral Tablet [facility] ([facility]) ferrous sulfate 325 MG Delayed Release O ral Tablet ferrous sulfate 325 mg (65 mg iron) tablet,delayed release ferrous sulfate 325 mg (65 mg iron) tabl et,delayed release completed ferrou s sulfate 325 MG Delayed Release Oral Tablet [facility] ([facility]) carvedilol 12.5 MG Oral Tablet carvedilol 12.5 mg tabl et carvedilol 12.5 mg tablet completed carvedilol 12.5 MG Oral Tablet [facility] ([facility]) carvedilol 12.5 MG Oral Tablet carvedilol 12.5 mg tabl et carvedilol 12.5 mg tablet completed carvedilol 12.5 MG Oral Tablet [facility] ([facility]) ferrous sulfate 325 MG Oral Tablet ferrous sulfate 325 mg (65 mg iron) tablet ferrous sulfate 325 mg (65 mg iron) tablet completed ferrous sulfate 325 MG Oral Tablet [facility] ([facility]) gabapentin 400 MG Oral Capsule gabapentin 400 mg capsu le gabapentin 400 mg capsule completed gabapentin 400 MG Oral Capsule [facility] ([facility]) carvedilol 12.5 MG Oral Tablet carvedilol 12.5 mg tabl et carvedilol 12.5 mg tablet completed carvedilol 12.5 MG Oral Tablet [facility] ([facility]) gabapentin 400 MG Oral Capsule gabapentin 400 mg capsu le gabapentin 400 mg capsule completed gabapentin 400 MG Oral Capsule [facility] ([facility]) ferrous sulfate 325 MG Delayed Release O ral Tablet ferrous sulfate 325 mg (65 mg iron) tablet,delayed release ferrous sulfate 325 mg (65 mg iron) tabl et,delayed release completed ferrou s sulfate 325 MG Delayed Release Oral Tablet [facility] ([facility]) ferrous sulfate 325 MG Delayed Release O ral Tablet ferrous sulfate 325 mg (65 mg iron) tablet,delayed release ferrous sulfate 325 mg (65 mg iron) tabl et,delayed release completed ferrou s sulfate 325 MG Delayed Release Oral Tablet [facility] ([facility]) ropinirole 0.25 MG Oral Tablet ropinirole 0.25 mg tabl et ropinirole 0.25 mg tablet completed ropinirole 0.25 MG Oral Tablet [facility] ([facility]) Acetaminophen 325 MG / Oxycodone Hydroch loride 5 MG Oral Tablet oxycodone- acetaminophen 5 mg-325 mg tablet oxycodone-acetaminophen 5 mg-325 mg tablet completed acetaminop hen 325 MG / oxycodone hydrochloride 5 MG Oral Tablet [facility] ([facility]) linezolid 600 MG Oral Tablet linezolid 600 mg tablet linezolid 6 00 mg tablet completed linezolid 600 MG Oral Tablet [facility] ([facility]) duloxetine 60 MG Delayed Release Oral Ca psule duloxetine 60 mg capsule,delayed release duloxetine 60 mg capsule,delayed release completed duloxetine 60 MG Delayed Release Oral Capsule [facility] ([facility]) carvedilol 12.5 MG Oral Tablet carvedilol 12.5 mg tabl et carvedilol 12.5 mg tablet completed carvedilol 12.5 MG Oral Tablet [facility] ([facility]) gabapentin 400 MG Oral Capsule gabapentin 400 mg capsu le gabapentin 400 mg capsule completed gabapentin 400 MG Oral Capsule [facility] ([facility]) pantoprazole 20 MG Delayed Release Oral Tablet pantoprazole 20 mg tablet,delayed release TAKE ONE TABLET BY MOUTH TWICE A DAY pantoprazole 20 mg tablet,delayed release TAKE ONE TABLET BY MOUTH TWICE A DAY completed pantoprazole 20 MG Delayed Release Oral Tablet [facility] ([facility]) linezolid 600 MG Oral Tablet linezolid 600 mg tablet linezolid 6 00 mg tablet completed linezolid 600 MG Oral Tablet [facility]) ferrous sulfate 325 MG Delayed Release O ral Tablet ferrous sulfate 325 mg (65 mg iron) tablet,delayed release ferrous sulfate 325 mg (65 mg iron) tabl et,delayed release completed ferrou s sulfate 325 MG Delayed Release Oral Tablet [facility] ([facility]) 24 HR venlafaxine 37.5 MG Extended Relea se Oral Capsule venlafaxine ER 37.5 mg capsule,extended release 24 hr venlafaxine ER 37.5 mg capsule,extended release 24 hr completed 24 HR v enlafaxine 37.5 MG Extended Release Oral Capsule [facility]) pantoprazole 20 MG Delayed Release Oral Tablet pantoprazole 20 mg tablet,delayed release TAKE ONE TABLET BY MOUTH TWICE A DAY pantoprazole 20 mg tablet,delayed release TAKE ONE TABLET BY MOUTH TWICE A DAY completed pantoprazole 20 MG Delayed Release Oral Tablet [facility] ([facility]) Sulfamethoxazole 800 MG / Trimethoprim 1 60 MG Oral Tablet sulfamethoxazole 800 mg-trimethoprim 160 mg tablet sulfamethoxazole 800 mg-trimethoprim 160 mg tablet completed sulfame thoxazole 800 MG / trimethoprim 160 MG Oral Tablet [facility]) pregabalin 75 MG Oral Capsule pregabalin 75 mg capsule prega balin 75 mg capsule completed pregabalin 75 MG Oral Capsule [facility] ([facility]) carvedilol 12.5 MG Oral Tablet carvedilol 12.5 mg tabl et carvedilol 12.5 mg tablet completed carvedilol 12.5 MG Oral Tablet [facility] ([facility]) ropinirole 0.25 MG Oral Tablet ropinirole 0.25 mg tabl et ropinirole 0.25 mg tablet completed ropinirole 0.25 MG Oral Tablet [facility] ([facility]) Sulfamethoxazole 800 MG / Trimethoprim 1 60 MG Oral Tablet sulfamethoxazole 800 mg-trimethoprim 160 mg tablet sulfamethoxazole 800 mg-trimethoprim 160 mg tablet completed sulfame thoxazole 800 MG / trimethoprim 160 MG Oral Tablet [facility] ([facility]) midodrine hydrochloride 10 MG Oral Tablet midodrine 10 mg tablet midodrine 10 mg tablet completed midodrine hydro chloride 10 MG Oral Tablet [facility] ([facility]) Acetaminophen 325 MG / Oxycodone Hydroch loride 5 MG Oral Tablet oxycodone- acetaminophen 5 mg-325 mg tablet oxycodone-acetaminophen 5 mg-325 mg tablet completed acetaminop hen 325 MG / oxycodone hydrochloride 5 MG Oral Tablet [facility] ([facility]) Acetaminophen 325 MG / Oxycodone Hydroch loride 5 MG Oral Tablet oxycodone- acetaminophen 5 mg-325 mg tablet oxycodone-acetaminophen 5 mg-325 mg tablet completed acetaminop hen 325 MG / oxycodone hydrochloride 5 MG Oral Tablet [facility] ([facility]) 24 HR venlafaxine 37.5 MG Extended Relea se Oral Capsule venlafaxine ER 37.5 mg capsule,extended release 24 hr venlafaxine ER 37.5 mg capsule,extended release 24 hr completed 24 HR v enlafaxine 37.5 MG Extended Release Oral Capsule [facility] ([facility]) 24 HR venlafaxine 37.5 MG Extended Relea se Oral Capsule venlafaxine ER 37.5 mg capsule,extended release 24 hr venlafaxine ER 37.5 mg capsule,extended release 24 hr completed 24 HR v enlafaxine 37.5 MG Extended Release Oral Capsule [facility] ([facility]) Insurance Providers Payer name Policy type / Coverage type Policy ID Covered green party ID Covered green party's relationship to dent Policy Dent Plan Information Workers Compensation Workers Compensation [id number] Self [id number] Commercial [id number] Self Medicaid S [id number] S [id number] [place] MEDICAID [id number] [id number] QUANG [id number] SP [id number] [place] Medicaid/CHP/FHP Commercial [id number] Self [id number] [place] Medicaid/CHP/FHP Commercial [id number] Self [id number] [place] Medicaid/CHP/FHP Commercial [id number] Self [id number] Managed Care [place] P [id number] S [id number] [place] Medicaid/CHP/FHP Commercial [id number] Self [id number] [place] Medicaid/CHP/FHP Medigap Part B [id number] Self [id number] [place] MEDICAID [id number] Melody [id number] [place] Medicaid/CHP/FHP Commercial [id number] Self [id number] [place] Medicaid/CHP/FHP Commercial [id number] Self [id number] [place] Medicaid/CHP/FHP Commercial [id number] Self [id number] QUANG I [id number] Self [id number] QUANG [id number] SP [id number] QUANG [id number] SP [id number] Medicaid S [id number] S [id number] Medicaid S [id number] S [id number] MEDICARE A [id number] Self [id number] MEDICARE [id number] [id number] MEDICARE [id number] Melody [id number] [id number] MEDICARE [id number] SP [id number] ANSI-Commercial [id number] ANSI-Commercial [id number] QUANG QUANG SP QUANG Medicaid [facility] Part B [id number] Self [id number] ANSI-Commercial [id number] [facility] Commercial [id number] Self [id number] Medicaid [facility] Part B [id number] Self [id number] [facility] Care Commercial [id number] Self [id number] ANSI-Commercial [id number] [facility] [id number] Self [id number] ANSI-Commercial [id number] ANSI-Commercial [id number] [facility] [id number] S 74 [id number] ANSI-Commercial [id number] ANSI-Commercial [id number] [facility] [id number] 2.16.840.1.952918.3.2 27.99.936.65282.0 Self [id number] [facility] Commercial [id number] 2.16.840.1.002403.3.2 27.99.936.51867.0 Self [id number] ANSI-Commercial [id number] ANSI-Commercial [id number] ANSI-Commercial [id number] [facility] [employer] [id number] 2.16.840.1.602120.3.2 27.99.936.02504.0 Self [id number] ANSI-Commercial [id number] [facility] [employer] [id number] 2.840.1.076141.3.2 27.99.936.11041.0 Self [id number] ANSI-Commercial [id number] ANSI-Commercial [id number] [facility] [employer] [id number] 2..840.1.847484.3.2 27.99.936.80041.0 Self [id number] ANSI-Commercial [id number] [facility] [employer] [id number] 2..840.1.765124.3.2 27.99.936.05096.0 Self [id number] ANSI-Commercial [id number] ANSI-Commercial [id number] ANSI-Commercial [id number] ANSI-Commercial [id number] [facility] [employer] [id number] 2.840.1.860664.3.2 27.99.936.69773.0 Self [id number] ANSI-Commercial [id number] ANSI-Commercial [id number] ANSI-Commercial [id number] Medicaid [place] Medigap Part B [id number] .[id number]. 79519.0 Self [id number] [facility] [employer] [id number] .1.157227.3.2 27.99.936.66455.0 Self [id number] ANSI-Commercial [id number] ANSI-Commercial [id number] [facility] [employer] [id number] 840.1.013257.3.2 27.99.936.04796.0 Self [id number] [employer] [facility] [employer] [id number] 2.16.840.1.093209.3.2 27.99.936.57589.0 Self [id number] [facility] [employer] [id number] 2.16.840.1.047769.3.2 27.99.936.11057.0 Self [id number] Medicaid [place] Medig[place] Part B [id number] 2.16.840.1.454473.3.227.99.991. 18184.0 Self [id number] [facility] [employer] [id number] 2.16.840.1.170151.3.2 27.99.936.09295.0 Self [id number] [employer] [id number] 2.16.840.1.141902.3.2 27.99.936.84482.0 Self [id number] [employer] [id number] 2.16.840.1.564022.3.2 27.99.936.13111.0 Self [id number] Medicaid [place] Medicaid [id number] 2.16.840.1.658694.3.227.99.991.40662.0 Self [id number] Sliding Fee Scale P [id number] S [id number] SELF PAY ONLY [id number] SP [id number] Sliding Fee Scale P UNAVAILABLE S UNAVAILABLE Self Pay P [id number] S [id number] SELF PAY O [id number] S [id number] O UNAVAILABLE UNAVAILA BLE SELF PAY UNAVAILABLE SP UNAVAILA BLE SELF PAY ONLY UNAVAILABLE UNAV AILABLE MEDICARE [id number] SP [id number] QUANG [id number] SP [id number] 000 [place]ARE [place] O [id number] S 74 [id number] MEDICAID [id number] SP [id number] [employer] [facility] [place] [id number] Self [id number] Medicaid [facility] Part B [id number] Self [id number] Medicaid [facility] Part B [id number] Self [id number] Medicaid [place] Medigap Part B [id number] .[id number]. 68640.0 Self [id number] ANSI-Commercial [id number] [facility] Commercial [id number] .1.702939.3.2 .99.936.11956.0 Self [id number] [facility] [place] Medicaid [id number] .[id number] Self [id number] ANSI-Commercial [id number] ANSI-Commercial [id number] ANSI-Commercial [id number] [facility] Commercial [id number] .99.936.40965.0 Self [id number] ANSI-Commercial [id number] [facility] [place] Medicaid [id number] .[id number] Self [id number] ANSI-Commercial [id number] ANSI-Commercial [id number] ANSI-Commercial [id number] ANSI-Commercial [id number] [facility] Commercial [id number] 2.16.840.1.764642.3.2 27.99.936.97897.0 Self [id number] ANSI-Commercial [id number] ANSI-Commercial [id number] Problems, Conditions, and Diagnoses Code Display Name Description Problem Type Effective Dates Data Source(s) 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 MCFP (cu rrent) use of insulin Diagnosis 05/30/2021 09:33:48 AM EDT [facility] E11.22 Type 2 diabetes mellitus with diabetic c hronic kidney disease Type 2 diabetes mellitus with diabetic c Diagnosis 05/30/2021 09:33:48 AM EDT [facility] N18.30 Chronic kidney disease, stage 3 unspecif ied Chronic kidney disease, stage 3 unspecif Diagnosis 05/30/2021 09:33:48 AM EDT [facility] I73.9 Peripheral vascular disease, unspecified Peripheral vascular disease, unspecified Diagnosis 05/30/2021 09:33:48 AM EDT [facility] E78.49 Other hyperlipidemia Other hyperlipidemia Diagnosis 05/30/2021 09:33:48 AM EDT [facility] I42.9 Cardiomyopathy, unspecified Cardiomyopathy, unspecifie d Diagnosis 05/30/2021 09:33:48 AM EDT [facility] I95.1 Orthostatic hypotension Orthostatic hypotension Diagno sis 05/30/2021 09:33:48 AM EDT [facility] N18.3 Chronic kidney disease, stage 3 (moderat e) Chronic kidney disease, stage 3 (moderat Diagnosis 04/30/2020 09:01:38 AM EDT [facility] I49.8 Conduction disorder of the heart Conduction disorder o f the heart Problem 01/07/2021 12:00:00 AM EDT MEDANJALI ([facility], ) K31.84 Gastroparalysis Gastroparalysis [id number] 11/05/2020 12:0 0:00 AM EDT [facility] N52.9 ED (erectile dysfunction) ED (erectile dysfunction) 64 [id number] 11/05/2020 12:00:00 AM EDT [facility] N18.9 Chronic kidney disease Chronic kidney disease [id number] 11/05/2020 12:00:00 AM EDT [facility] M54.5 Low back pain Low back pain 80305026 11/05/2020 12:00:00 AM EDT [facility] K21.9 GERD (gastroesophageal reflux disease) G ERD (gastroesophageal reflux disease) [id number] 11/05/2020 12:00:00 AM EDT [facility] [id number] Pain in finger of left hand Pain in Finger of Left Hand Problem 09/12/2020 12:00:00 AM CHANCE JUÁREZ ([facility] er) [id number] Restless legs Restless Legs Problem 09/12/2020 12:00:00 AM CHANCE JUÁREZ ([facility]) [id number] Pain in finger of left hand Pain in Finger of Left Hand Problem 09/12/2020 12:00:00 AM EST FRANCK ([facility] er) 50864809 Restless legs Restless Legs Problem 09/12/2020 12:00:00 AM EST FRANCK ([facility]) [id number] Pain in finger of left hand Pain in Finger of Left Hand Problem 09/12/2020 12:00:00 AM EST FRANCK ([facility] er) 87475146 Restless legs Restless Legs Problem 09/12/2020 12:00:00 AM EST FRANCK ([facility]) [id number] Pain in finger of left hand Pain in Finger of Left Hand Problem 09/12/2020 12:00:00 AM EST FRANCK ([facility] er) 33162666 Restless legs Restless Legs Problem 09/12/2020 12:00:00 AM EST FRANCK ([facility]) [id number] Pain in finger of left hand Pain in Finger of Left Hand Problem 09/12/2020 12:00:00 AM EST FRANCK ([facility]) 20123743 Restless legs Restless Legs Problem 09/12/2020 12:00:00 AM EST FRANCK ([facility]) [id number] Pain in finger of left hand Pain in Finger of Left Hand Problem 09/12/2020 12:00:00 AM EST FRANCK ([facility] er) 15177749 Restless legs Restless Legs Problem 09/12/2020 12:00:00 AM EST FRANCK ([facility]) [id number] Pain in finger of left hand Pain in Finger of Left Hand Problem 09/12/2020 12:00:00 AM EST FRANCK ([facility]) 77026202 Restless legs Restless Legs Problem 09/12/2020 12:00:00 AM EST FRANCK ([facility]) [id number] Pain in finger of left hand Pain in Finger of Left Hand Problem 09/12/2020 12:00:00 AM EST FRANCK ([facility]) 07096222 Restless legs Restless Legs Problem 09/12/2020 12:00:00 AM EST FRANCK ([facility]) M79.645 Pain in finger of left hand Pain in finger of left harrell d 59727663 09/12/2020 12:00:00 AM EST [facility] G25.81 Restless legs Restless legs 45774955 09/12/2020 12:00:00 AM EST [facility] L97.511 [id number] Non-pressure chronic ulcer of other part of right foot limited to breakdown of skin Problem 08/29/2020 12:00:00 AM EST eCW1 ([facility]) L97.521 599264337 Non-pressure chronic ulcer of other part of left foot limited to breakdown of skin Problem 08/29/2020 12:00:00 AM EST eCW1 ([facility]) L03.116 Cellulitis of left foot Cellulitis of left foot Proble 08/26/2020 12:00:00 AM EST - 10/27/2020 12:00:00 AM EST MEDENT ([facility] L97.512 224250960 Non-pressure chronic ulcer of other part of right foot with fat layer exposed Problem 08/15/2020 12:00:00 AM EST eCW1 ([facility]) [id number] Pain of right shoulder joint Pain of Right Yudi ulder Joint Problem 08/07/2020 12:00:00 AM EST [facility]CK ([facility]) 132742642 Pain in left lower limb Pain in Left Lower Limb Proble 08/07/2020 12:00:00 AM EST FRANCK ([facility]) 41951098048690588 Pain of right shoulder joint Pain of Right Yudi ulder Joint Problem 08/07/2020 12:00:00 AM EST FRANCK ([facility]) 059452971 Pain in left lower limb Pain in Left Lower Limb Proble 08/07/2020 12:00:00 AM EST FRANCK ([facility]) [id number] Pain of right shoulder joint Pain of Right Yudi ulder Joint Problem 08/07/2020 12:00:00 AM EST [facility]ANCK ([facility]) 469604853 Pain in left lower limb Pain in Left Lower Limb Proble 08/07/2020 12:00:00 AM EST [facility] ([facility]) 79051030246273086 Pain of right shoulder joint Pain of Right Yudi ulder Joint Problem 08/07/2020 12:00:00 AM EST FRANCK ([facility]) 094370961 Pain in left lower limb Pain in Left Lower Limb Proble 08/07/2020 12:00:00 AM EST [facility]CK ([facility]) [id number] Pain of right shoulder joint Pain of Right Yudi ulder Joint Problem 08/07/2020 12:00:00 AM EST [facility]ANCK ([facility]) 075495881 Pain in left lower limb Pain in Left Lower Limb Proble 08/07/2020 12:00:00 AM EST FRANCK ([facility]) 51769851940264101 Pain of right shoulder joint Pain of Right Yudi ulder Joint Problem 08/07/2020 12:00:00 AM EST FRANCK ([facility]) 599478138 Pain in left lower limb Pain in Left Lower Limb Proble 08/07/2020 12:00:00 AM EST FRANCK ([facility]) 76652759687100364 Pain of right shoulder joint Pain of Right Yudi ulder Joint Problem 08/07/2020 12:00:00 AM EST FRANCK ([facility]) 183032219 Pain in left lower limb Pain in Left Lower Limb Proble 08/07/2020 12:00:00 AM EST [facility]ANCK ([facility]) 88112929159726842 Pain of right shoulder joint Pain of Right Yudi ulder Joint Problem 08/07/2020 12:00:00 AM EST FRANCK ([facility]) 615239652 Pain in left lower limb Pain in Left Lower Limb Proble 08/07/2020 12:00:00 AM EST FRANCK ([facility]) 18160103603434902 Pain of right shoulder joint Pain of Right Yudi ulder Joint Problem 08/07/2020 12:00:00 AM EST FRANCK ([facility]) 704279496 Pain in left lower limb Pain in Left Lower Limb Proble 08/07/2020 12:00:00 AM EST [facility]CK ([facility]) M25.511 Pain in joint of right shoulder Pain in joint of right shoulder 48281368 08/07/2020 12:00:00 AM EST [facility] M79.605 Pain of left lower extremity Pain of left lower extrem ity 05363675 08/07/2020 12:00:00 AM EST [facility] 711313204 Lumbar radiculopathy Lumbar Radiculopathy Problem 06/12/2020 12:00:00 AM EDT FRANCK ([facility]) 052313602 Lumbar radiculopathy Lumbar Radiculopathy Problem 06/12/2020 12:00:00 AM EDT FRANCK ([facility]) 166758833 Lumbar radiculopathy Lumbar Radiculopathy Problem 06/12/2020 12:00:00 AM EDT FRANCK ([facility]) 120881227 Lumbar radiculopathy Lumbar Radiculopathy Problem 06/12/2020 12:00:00 AM EDT FRANCK ([facility]) 447443693 Lumbar radiculopathy Lumbar Radiculopathy Problem 06/12/2020 12:00:00 AM EDT FRANCK ([facility]) 546469027 Lumbar radiculopathy Lumbar Radiculopathy Problem 06/12/2020 12:00:00 AM EDT FRANCK ([facility]) 951164721 Lumbar radiculopathy Lumbar Radiculopathy Problem 06/12/2020 12:00:00 AM EDT FRANCK ([facility]) 098684643 Lumbar radiculopathy Lumbar Radiculopathy Problem 06/12/2020 12:00:00 AM EDT FRANCK ([facility]) M54.16 Lumbar radiculopathy Lumbar radiculopathy 25333814 06/12/2020 12:00:00 AM EDT [facility] 994992649 Lumbar radiculopathy Lumbar Radiculopathy Problem 06/12/2020 12:00:00 AM EDT FRANCK ([facility]) 697341103 Lumbar radiculopathy Lumbar Radiculopathy Problem 06/12/2020 12:00:00 AM EDT FRANCK ([facility]) E11.42 Type 2 diabetes mellitus with diabetic p olyneuropathy Type 2 diabetes mellitus with diabetic polyneuropathy Problem 05/01/2020 12:00:00 AM EDT MEDENT ([facility] L89.892 Pressure ulcer of other site, stage 2 Pr essure ulcer of other site, stage 2 Problem 05/01/2020 12:00:00 AM EDT - 08/26/2020 12:00:00 AM EST MEDENT ([facility] L03.115 Cellulitis of right lower limb Cellulitis of right low er limb Problem 05/01/2020 12:00:00 AM EDT - 08/26/2020 12:00:00 AM EST MEDENT ([facility] E78.49 Other hyperlipidemia Other hyperlipidemia [id number] 04/30/2020 12:00:00 AM EDT [facility] Surgeries/Procedures Procedure Description Date Indications Data Source(s) POCT AMB EKG <td>POCT AMB EKG</td><td>Rou ellie</td><td>05/30/2021 10:41 AM EDT</td><td> Cardiomyopathy, unspecified type</td><td> </td> 05/30/2021 10:41:00 AM EDT Cardiomyopathy, unspecified type [facility] Cardiomyopathy, unspecified type OFFICE OUTPATIENT VISIT 25 MINUTES 04/24/2021 12:00:00 AM EDT MEDENT ([facility], ) Inject/Drain Arthrocentesis Major Joint/Bursa/Ganglion Cyst 03/10/2021 12:00:00 AM EDT MEDENT ([facility], ) OFFICE OUTPATIENT VISIT 25 MINUTES 03/10/2021 12:00:00 AM EDT MEDENT ([facility], ) PARING/CUTTING BENIGN HYPERKERATOTIC LESION 1 03/07/20 12:00:00 AM EDT MEDENT ([facility] Needle electromyography, each extremity, with related paraspinal areas, when performed, done with nerve conduction, amplitude and latency/velocity study; complete, five or more muscles studied, innervated by three or more nerves or four or more spinal levels (list separately in addition to the code for primary procedure). 02/24/2021 12:00:00 AM EDT MEDEN T ([facility], ) 75063 Nerve conduction studies 7-8 studies NEW 201202/24/2021 12:00:00 AM EDT MEDENT ([facility], ) OFFICE OUTPATIENT NEW 45 MINUTES 02/06/2021 12:00:00 A M EDT MEDENT ([facility]) OFFICE OUTPATIENT NEW 45 MINUTES 01/16/2021 12:00:00 A M EDT MEDENT ([facility]) Amb Glucose Monitoring Interpretation And Report 01/09 12:00:00 AM EDT MEDENT ([facility] ) OFFICE OUTPATIENT VISIT 15 MINUTES 01/07/2021 12:00:00 AM EDT MEDENT ([facility], ) OFFICE OUTPATIENT VISIT 10 MINUTES 01/02/2021 12:00:00 AM EDT MEDENT ([facility] BASIC METABOLIC PANEL CALCIUM TOTAL <td>BASIC METABOLI C PANEL</td><td>Routine</td><td>12/23/2020</td><td></td><td> </td> 12/23/2020 12:00:00 AM EDT [facility] Endoscopy Upper GI Remove Foreign Body 12/20/2020 12:0 0:00 AM EDT MEDENT ([facility], ) OFFICE OUTPATIENT VISIT 25 MINUTES 11/05/2020 12:00:00 AM EDT MEDENT ([facility], ) OFFICE OUTPATIENT VISIT 10 MINUTES 10/21/2020 12:00:00 AM EST MEDENT ([facility] Amb Glucose Monitoring Interpretation And Report 01/26 /2021 12:00:00 AM EST MEDENT ([facility] ) OFFICE OUTPATIENT VISIT 10 MINUTES 09/09/2020 12:00:00 AM EST MEDENT ([facility] FINE NEEDLE ASPIRATION W/O IMAGING GUIDANCE 08/29/2020 12:00:00 AM EST eCW1 ([facility]) FINE NEEDLE ASPIRATION W/O IMAGING GUIDANCE 08/22/2020 12:00:00 AM EST eCW1 ([facility]) FINE NEEDLE ASPIRATION W/O IMAGING GUIDANCE 08/15/2020 12:00:00 AM EST eCW1 ([facility]) FINE NEEDLE ASPIRATION W/O IMAGING GUIDANCE 08/08/2020 12:00:00 AM EST eCW1 ([facility]) DEBRIDEMENT SUBCUTANEOUS TISSUE 20 SQ CM/< 06/21/2020 12:00:00 AM EST MEDENT ([facility] DEBRIDEMENT SUBCUTANEOUS TISSUE 20 SQ CM/< 06/07/2020 12:00:00 AM EDT MEDENT ([facility] Amb Glucose Monitoring Interpretation And Report 06/06 12:00:00 AM EDT MEDENT ([facility] ) DEBRIDEMENT SUBCUTANEOUS TISSUE 20 SQ CM/< 05/24/2020 12:00:00 AM EDT MEDENT ([facility] DEBRIDEMENT SUBCUTANEOUS TISSUE 20 SQ CM/< 05/17/2020 12:00:00 AM EDT MEDENT ([facility] DEBRIDEMENT OPEN WOUND 20 SQ CM/< 05/10/2020 12:00:00 AM EDT MEDENT ([facility] DEBRIDEMENT SUBCUTANEOUS TISSUE 20 SQ CM/< 05/03/2020 12:00:00 AM EDT MEDENT ([facility] DEBRIDEMENT SUBCUTANEOUS TISSUE 20 SQ CM/< 04/26/2020 12:00:00 AM EDT MEDENT ([facility] Results ID Date Data Source [id number] 01/17/2021 12:02:05 PM EDT [facility] Name Value Range Interpretation Code Description Data Torri rce(s) Supporting Document(s) Progress Note [facility] [id number] lbm [file] [id number] ID Date Data Source [id number] 01/09/2021 03:47:00 PM EDT [facility] ([facility] ) Name Value Range Interpretation Code Description Data Torri rce(s) Supporting Document(s) Glucose [Mass/volume] in Serum or Plasma 220 [facility] ([facility] ) Hemoglobin A1c/Hemoglobin.total in Blood 8.0 [facility] ([facility] ) ID Date Data Source [id number] 12/23/2020 11:30:00 AM EDT [facility]) Name Value Range Interpretation Code Description Data Torri rce(s) Supporting Document(s) glucose, fasting 187 mg/dL 70-100 Above high normal Glucose, Fas ting [place] ([facility]) sodium level 135 mEq/L 136-145 Below low normal Sodium Level ATHE NA ([facility]) potassium serum 5.2 mEq/L 3.5-5.1 Above high normal Potassium Ser um [facility] ([facility]) creatinine for GFR 1.27 mg/dL 0.70-1.30 Creatinine for GF R [place] ([facility]) glomerular filtration rate > 60.0 >60 Glomerula r Filtration Rate [place] ([facility]) blood urea nitrogen 20 mg/dL 7-18 Above high normal Blood Ure a Nitrogen [place] ([facility]) carbon dioxide level 29 mEq/L 21-32 Carbon Dioxide Level [facility] ([facility]) anion gap 3 mEq/L 8-16 Below low normal Anion Gap [facility] ( [facility]) calcium level 9.8 mg/dL 8.5-10.1 Calcium Level [facility] ( [facility]) chloride level 103 mEq/L 98-107 Chloride Level [facility] ([facility]) ID Date Data Source [id number] 12/23/2020 11:30:00 AM EDT [place] ([facility]) Name Value Range Interpretation Code Description Data Torri rce(s) Supporting Document(s) glucose, fasting 187 mg/dL 70-100 Above high normal Glucose, Fas ting [facility] ([facility]) blood urea nitrogen 20 mg/dL 7-18 Above high normal Blood Ure a Nitrogen [facility] ([facility]) creatinine for GFR 1.27 mg/dL 0.70-1.30 Creatinine for GF R [place] ([facility]) potassium serum 5.2 mEq/L 3.5-5.1 Above high normal Potassium Ser um [facility] ([facility]) chloride level 103 mEq/L 98-107 Chloride Level [facility] ([facility]) sodium level 135 mEq/L 136-145 Below low normal Sodium Level AT[facility] NA ([facility]) glomerular filtration rate > 60.0 >60 [place] r Filtration Rate [facility] ([facility]) anion gap 3 mEq/L 8-16 Below low normal Anion Gap [facility] ( [facility]) carbon dioxide level 29 mEq/L 21-32 Carbon Dioxide Level [facility] ([facility]) calcium level 9.8 mg/dL 8.5-10.1 Calcium Level [facility] ( [facility]) ID Date Data Source [id number] 12/23/2020 11:30:00 AM EDT [facility]) Name Value Range Interpretation Code Description Data Torri rce(s) Supporting Document(s) glomerular filtration rate > 60.0 >60 [place] r Filtration Rate [facility] ([facility]) glucose, fasting 187 mg/dL 70-100 Above high normal Glucose, Fas ting [facility] ([facility]) blood urea nitrogen 20 mg/dL 7-18 Above high normal Blood Ure a Nitrogen [facility] ([facility]) creatinine for GFR 1.27 mg/dL 0.70-1.30 Creatinine for GF R [facility] ([facility]) potassium serum 5.2 mEq/L 3.5-5.1 Above high normal Potassium Ser um [facility] ([facility]) sodium level 135 mEq/L 136-145 Below low normal Sodium Level ATHE NA ([facility]) anion gap 3 mEq/L 8-16 Below low normal Anion Gap [facility] ( [facility]) chloride level 103 mEq/L 98-107 Chloride Level [facility] ([facility]) carbon dioxide level 29 mEq/L 21-32 Carbon Dioxide Level [place] ([facility]) calcium level 9.8 mg/dL 8.5-10.1 Calcium Level [place] ( [facility]) ID Date Data Source [id number] 12/23/2020 11:30:00 AM EDT [place] ([facility]) Name Value Range Interpretation Code Description Data Torri rce(s) Supporting Document(s) glucose, fasting 187 mg/dL 70-100 Above high normal Glucose, Fas ting [place] ([facility]) sodium level 135 mEq/L 136-145 Below low normal Sodium Level ATHE NA ([facility]) blood urea nitrogen 20 mg/dL 7-18 Above high normal Blood Ure a Nitrogen [facility] ([facility]) creatinine for GFR 1.27 mg/dL 0.70-1.30 Creatinine for GF R [facility] ([facility]) glomerular filtration rate > 60.0 >60 Glomerula r Filtration Rate [facility] ([facility]) carbon dioxide level 29 mEq/L 21-32 Carbon Dioxide Level [facility] ([facility]) anion gap 3 mEq/L 8-16 Below low normal Anion Gap [facility] ( [facility]) potassium serum 5.2 mEq/L 3.5-5.1 Above high normal Potassium Ser um [facility] ([facility]) chloride level 103 mEq/L 98-107 Chloride Level [facility] ([facility]) calcium level 9.8 mg/dL 8.5-10.1 Calcium Level [place] ( [facility]) ID Date Data Source [id number] 12/15/2020 09:40:00 AM EDT [facility] Name Value Range Interpretation Code Description Data Torri rce(s) Supporting Document(s) SARS-CoV-2 (COVID-19) RNA [Presence] in Respiratory specimen by JOSE with probe detection Not Detected [facility] This lab was ordered by [facility] and reported by [employer]. ID Date Data Source [id number] 11/06/2020 08:15:41 AM EDT [facility]FORMATIONPatient MRN Name Date of Age Gend*PT [id number] Panfilo García 1980 40 years M ---PT Location Admission Date/Time Visit ID Attending Provider --- --- --- --- EPI ID CSN Admitting Provider [id number] ---Addended by: ESDRAS ACOSTA on: 11/06/2020 08:15 AM Modules accepted: Level of Service Name Value Range Interpretation Code Description Data Torri rce(s) Supporting Document(s) ID Date Data Source [id number] 10/18/2020 09:50:00 AM EST [facility]) Name Value Range Interpretation Code Description Data Torri rce(s) Supporting Document(s) summary final . [facility] ID Date Data Source [id number] 10/18/2020 09:50:00 AM EST [facility]) Name Value Range Interpretation Code Description Data Torri rce(s) Supporting Document(s) summary final . Summary [place] ([facility]) ID Date Data Source [id number] 10/18/2020 09:50:00 AM EST [facility]) Name Value Range Interpretation Code Description Data Torri rce(s) Supporting Document(s) summary final . Summary [facility] ([facility]) ID Date Data Source [id number] 10/18/2020 09:50:00 AM [facility] Name Value Range Interpretation Code Description Data Torri rce(s) Supporting Document(s) summary final . Summary [facility] ([facility]) ID Date Data Source [id number] 10/18/2020 09:50:00 AM EST [facility] Name Value Range Interpretation Code Description Data Torri rce(s) Supporting Document(s) summary final . Summary [facility]) ID Date Data Source [id number] 10/18/2020 09:50:00 AM EST [facility] Name Value Range Interpretation Code Description Data Torri rce(s) Supporting Document(s) summary final . Summary [facility]) ID Date Data Source [id number] 09/10/2020 03:14:00 PM EST [facility] ([facility]) Name Value Range Interpretation Code Description Data Torri rce(s) Supporting Document(s) Glucose [Mass/volume] in Serum or Plasma 152 [facility] Hemoglobin A1c/Hemoglobin.total in Blood 7.7 [facility] ([facility]) ID Date Data Source [id number] 09/06/2020 02:51:00 PM EST [facility] ([facility]) Name Value Range Interpretation Code Description Data Torri rce(s) Supporting Document(s) Thyroid Stimulating Hormone 0.324 uIU/ML 0.358-3.740 [facility] Free T4 0.83 ng/dL 0.76-1.46 [facility] ([facility]) ID Date Data Source [id number] 07/18/2020 04:19:00 PM EST [facility] ([facility]) Name Value Range Interpretation Code Description Data Torri rce(s) Supporting Document(s) Thyroperoxidase Ab [Units/volume] in Serum or Plasma 33.0 U/ML [facility] ([facility] Triiodothyronine (T3) [Mass/volume] in Serum or Plasma 101.8 ng/dL 60.0-181.0 [facility] Thyroxine (T4) free [Mass/volume] in Serum or Plasma 1.10 ng/dL 0.76- 1.46 [facility] ([facility] ) Thyrotropin [Units/volume] in Serum or Plasma by Detec tion limit <= 0.05 mIU/L 0.142 uIU/ML 0.358-3.740 [facility] ([facility] ) Thyroid Stimulating Immunoglob Laboratory test result 0.00-0.55 [facility] ([facility]) Performed at: [address] [id number] [employer]iter: Alfred Murray MD, Phone: [phone] ID Date Data Source [id number] 07/02/2020 12:12:00 PM EST [facility] ([facility] ) Name Value Range Interpretation Code Description Data Torri rce(s) Supporting Document(s) Thyrotropin [Units/volume] in Serum or Plasma by Detec tion limit <= 0.05 mIU/L 0.091 uIU/ML 0.358-3.740 [facility] ID Date Data Source [id number] 07/02/2020 12:12:00 PM EST [facility] ([facility] ) Name Value Range Interpretation Code Description Data Torri rce(s) Supporting Document(s) Creatinine [Mass/volume] in Urine 79.5 mg/dL [facility] ([facility] ) Microalbumin/Creatinine [Mass Ratio] in Urine 66.7 MCG/MG 0.0-30.0 [facility] ([facility] ) THE [employer] STATES THAT MICROALBUMINURIA IS PRESENT IF THE MICROALBUMIN/CREATININE RATIO EXCEEDS 30 MCG/MG. THE THRESHOLD FOR CLINICAL ALBUMINURIA IS REACHED AT 300 MCG/MG. THE CLASSIFICATION OF A PATIENT SHOULD BE BASED UPON AT LEAST 2 OF 3 ABNORMAL RESULTS ON SPECIMENS COLLECTED WITHIN A 3 TO 6 MONTH TIME FRAME. Microalbumin [Mass/volume] in Urine 53.1 mg/L [facility] ([facility] ) ID Date Data Source [id number] 07/02/2020 12:12:00 PM EST [facility] ([facility]) Name Value Range Interpretation Code Description Data Torri rce(s) Supporting Document(s) Glucose, Fasting 132 mg/dL 70-100 [facility] ([facility]) Blood Urea Nitrogen 20 mg/dL 7-18 [facility] ([facility]) Creatinine For GFR 1.49 mg/dL 0.70-1.30 [facility] ([facility]) Sodium Level 139 meq/L 136-145 [facility] ([facility]) Potassium Serum 5.4 meq/L 3.5-5.1 [facility] ([facility]) Glomerular Filtration Rate 55.9 [facility] ([facility]) <content>Units are mL/min/1.73 m2</content>
<content></content>
<content>Chronic Kidney Disease Staging per NKF:</content>
<content></content>
<content>Stage I & II GFR >=60 Normal to Mildly Decreased</content>
<content>Stage III GFR 30- 59 Moderately Decreased</content>
<content>Stage IV GFR 15-29 Severely Decreased</content>
<content>Stage V GFR <15 Very Little GFR Left</content>
<content>ESRD GFR <15 on [facility]</content>
<content></content> Carbon Dioxide Level 29 meq/L 21-32 [facility] ([facility]) Anion Gap 3 meq/L 8-16 [facility] ([facility]) Chloride Level 107 meq/L 98-107 [facility] ([facility]) Calcium Level 9.3 mg/dL 8.5-10.1 [facility] ([facility]) Ast/Sgot 39 U/L 7-37 [facility] ([facility]) Bilirubin,Total 0.7 mg/dL 0.2-1.0 [facility] ([facility]) Alkaline Phosphatase 57 U/L 45-117 [facility] ([facility]) Alt/SGPT 36 U/L 12-78 [facility] ([facility]) Albumin/Globulin Ratio 1.3 [facility] ([facility]) Albumin 4.4 GM/DL 3.2-5.2 [facility] Total Protein 7.8 GM/DL 6.4-8.2 [facility] ([facility]) ID Date Data Source [id number] 07/02/2020 12:12:00 PM EST [facility] ([facility]) Name Value Range Interpretation Code Description Data Torri rce(s) Supporting Document(s) Triglycerides Level 113 mg/dL [facility] ([facility] HDL Cholesterol 59 mg/dL [facility] ([facility]) LDL Cholesterol 71 mg/dL [facility] ([facility]) Cholesterol Level 153 mg/dL [facility] ([facility]) Cholesterol Risk Ratio 2.593 [facility] ([facility]) Non-HDL-C 94 mg/dL [facility]) ID Date Data Source [id number] 06/20/2020 04:00:00 PM EST [facility] Name Value Range Interpretation Code Description Data Torri rce(s) Supporting Document(s) Progress Note [facility] ILENJx8mXpCNJnBa11/MDGvbBEWlm1DqVZvtBMq8QPboLXBzC7PqPWF8bC3xWKW5AHpQRvTiAfSbYOA6 m [file] ICAgICAgICAgICAgICAgICAgICAgICAgICAgICAgIC AgICAgICAgICAgICAgICAgICAgICAgICAgICAgICAgICAgICAgICAgICAgICAgICAgICAgICAgICAgIC IvSO5KCGXcXJRyQFZpHFOxLQZpWJFwKNSaRDEoHPEqJSEgNUVdVADuGOUdIZQqMWWfNGJxWPXlGDWkCR AgICAgICAgICAgICAgICAgICAgICAgICAgICAgICAg MITbTRGoWJAkFGQyTZ0RLGEcKDLkYPDeWWQfABMnBUNtQXFvZXXvCTSyFMBsYDHpDOGfTLItEFKgMRHu NLVhVSBbIKBqAGUdEQWcIKNaRZUlVUZtPLRwZNFuQNXsYRFqKZUpWOGcUGLaCRJcUMScBDIxHO3ACNRz ICAgICAgICAgICAgICAgICAgICAgICAgICAgICAgIC AgICAgICAgICAgICAgICAgICAgICAgICAgICAgICAgICAgICAgICAgICAgICAgICAgICAgICAgICAgIC GtPBGlMY8NQIMqXSHiKACoEKKaCHYbLQWaPKSqPULxEHSbFOTuTBBhLGChBCPrNXVzSEQoCRCuMZZfOC AgICAgICAgICAgICAgICAgICAgICAgICAgICAgICAg CWZiKMQtBSIwOUOmJRGbAP0KEKFyJUQaCCOqXLEoKVPlUHXbHXUfIRLcLCLfWMVbIXGwVJZyMZObNIAl ZELpJIWcAOUtITIsUCXkAVKbQOQvHIFsJDQcBUNpPPJyDZMpAGOtQGGmPMAzFGJhBVMpAZVwMFIkNL9Q ICAgICAgICAgICAgICAgICAgICAgICAgICAgICAgIC AgICAgICAgICAgICAgICAgICAgICAgICAgICAgICAgICAgICAgICAgICAgICAgICAgICAgICAgICAgIC WlWEUeMEKwDA1STTLlUASuQLBeXIRwZOLgAJHeIBDqVBXpLBDjATFxYZIuPREeKKVkUNOiIEJoWPYmPS AgICAgICAgICAgICAgICAgICAgICAgICAgICAgICAg BUMpDWCnULCaHNLcKQFfKPXeKP3YAHVdTPHfPIDqIUGwKIAlUYKfHAYiESZhGVSgKKTqAZWsHRJjYNCf ICAgICAgICAgICAgICAgICAgICAgICAgICAgICAgICAgICAgICAgICAgICAgICAgICAgICAgICAgICAg BR5MLJWkDOCtKVBpGIBiTWOwRGGySBVpOAMgCWGdKV AgICAgICAgICAgICAgICAgICAgICAgICAgICAgICAgICAgICAgICAgICAgICAgICAgICAgICAgICAgIC YsDQTpVWQmKVXaLH8WHP92bTTol1B4JPPzAM6dqir/Th7UFDuewlTruTDmCE0GXyBjOK6xoh4EVrLcCH 9uim0ERZfQVqWqM3B8jORiWLZjYDKULzJcK69pTZfr Yd24WWfnGFYgMdLkLRq8Py7BVmGtW3giBIXuFtD8RXFeNtZ7YJGoZlD0GXKbBiMrAHCtXDJtPEMcPFAO CGA8UHEtWkObUThuXM6Lt6AwuUB8FLc+Ms7XRM4em2CaIVjvTbScPE9bpl4RBGiPKzUbA2BveeW8YNSw VDGqAx9QFTUgNKPdfRGfWhWaFKVFWaJvS0ZfqY48IV ENCj4+GXxzifTnQnhBWxHwEOQsm3OsOTr1IP4HTRRfSYk2bJAkFIYjO7Fgn4SuVl39OJAqYkhpB7YulE fcJDO9f648RSyxCNFyYTZcXKOpHV5tRGWnFYXbMgBlLSAIGO3YLYXlYSPxeEEhRCTkFKMTNG2FNCfqZQ T7LJUmixXsdCAnPYvvOR9FMXWfgoNiFrIfRDUFEAk+ Qr3TUD2bz2ZwJWfrDDHoVB1akd6DIFhFPnPsT5F5tQYlH1M6IMjzWi0TLEUtNJIqJxPoIWVCJLndNU4M RL7uwaO4IR0XxAFaWZWyILOlcFUfXBr0A76auXDlBWxfWR8LIII+Joshua+Ks3JWUIiRNGcXUBsFgWlZQYS YrEbY6WbS4MLl2PlT5YbPU97gJlxjwMlZVzwKI3DPH 3aUTZzKURSHS8WxZTttS6mbpEgNhOsYHHPTaZaS82qtXBzTKRpDNRzZOJsAn8CGDEcE9MiriJeoFfqvb XuAVSjLLKOWH2SZSvlqhKeiRSkaNglZD24qEeqUS4EFg2CBpEdQJ5jxj3VvWNsVa1VRCZiUZ9TXPMyNU KaJQHhKVP6GHNhPfCqJQeuYSFuMRKpWAM1VEQiTOCz HE0UDbZcREFnTDW9MJHfVAHtFETzum8WDMYvTPO9IbY7PhMmRDMeKXScCFhnUVRyGDXeNTB6FLEhAAQd OC2XYkQvTHCkDQK9GiipXBUbFCRkux9LORUmPPKlBIN3WeAeOXIoJGAlHVtbMMGiPEH1NnL6DLCdFEDu KJ9XAbMuZXKdUYR2SiMeWDWiSMYzfl7QVODpUQBpML NgCRJpVCBtYIVrUQocXDZdZTI3CtB8NFYaZTFjCB7KMzOlMVSyNLW7MoFaSRXnTMDxkc1DYZCcKKOvOz tnXwSuUXAkVKYjMRkrTJFnHYS7MEb6YECrTEKmCW4XRnKgJGYxALTcXKGtPRErYFApcn8SQQQnOFRlGa h1FWQqNOXiEATbCWurVOCmMRG7MOq1TDCyDXUqMF1N UrEeWHDbNXpfFZJuGVIoICBxgk1ZBBRrXYZqFHG0FzDmJEVkOKEoVGyxYGAuEAI8TGX8HCNsSSFsCV1S RrSwFNPdZuP2OBRdUIQtWAGrol0XHTXxFZAnUUI0ZyPnWBEqVXLkIGiqQYQgZEXjABd8WNPuANYeDC6E LnKwXKExMgk8OnuiAEXyGJNpzb5VGFEpANGgTJy4DV QtOXHpJCIzYOreNETyJFP6FXGeSJRjGQWaTV7WNlNtZZXrOeu2UhRhWMNrEHOtkh1VEKWkHLMiEXNgZH RyRBWlZTQhXWjvTXRdHMZmWRH2NOGhCAHjKU7TKbFeQCWfYYQ3PVXxYOZeNPLpsp4BCKGmSXC5RIzoVR WyYRPdCHTnPYoaBLGvPLPjBkA3TPVdSJPlGB9LXdMu GRRfLDD1KYnrFWJlRKVozu4CTVDjUSK3Qac1PFUqTRDjZUSaMGiaEKPwGJDhNMK9PLTwQQBlQK7HFlYc DRgyBJEUNtq6BHirD2u9LCTmEP8SF8Xyc9XxTwAfNORSOVrcOV6mceYpQPSvQm3VM4jCHrh4EjXuZLm6 J7QzCYZkJhhbNIRiHMXmC1TmNhYvGwOcJA6lQGaqIJ I9DNepVZH4SFY5GZLzRzQqGvA7HOS2UeDbNvNwTnObNX1QKz5BCoS1JWD4eNInNs4XVRQpMIXBIqFqDQ 9GDQo= ID Date Data Source [id number] 06/06/2020 01:44:00 PM EDT [facility] ([facility]) Name Value Range Interpretation Code Description Data Torri rce(s) Supporting Document(s) Hemoglobin A1c/Hemoglobin.total in Blood 7.5 [facility] ([facility]) Glucose [Mass/volume] in Serum or Plasma 109 [facility] ([facility]) ID Date Data Source [id number] 04/30/2020 08:58:46 AM EDT [facility] Name Value Range Interpretation Code Description Data Torri rce(s) Supporting Document(s) &PDF [facility] MEBPSe9yKaIDCiFb88/ITDwoVNSom3UfPEgjPYi5YCkyVFGmO3UvjLqkHCQLSGHUYYNMDXQESA0nWF3a pYy PJbXQ0SG6xEGBonkLoytX9mS1yQO4PHWC+Wj2MQH7oe4YmLGd5TDPmt3LlTDdhGZq1G5SzoRAjhdMoHl zyaVIPSUQhOEPzL0iujho5gQLxOdP6Rh3KVuJys2ZzJOMkESxLno8kI49mKfN+X2n/G8vDbqTKGW2ivO 6fGRisQ9ItnJq0L1dEuKagDKkJaoMs/4k07N2sPLog 5vPUdDUGL/JAy4ZN08zlMaaeejt/PqrVKHAcRxX/Zj+jxFMHZ+wyj2RMefA1h8o8CfvH/90ndR45RQWR vsKW2XOH+0Sc7HnSZ4L2QgH4iHuKUbp5I+3+L/1rr8ds8ALf86g2j/lymaYbx0cEo1Zx6d0/0I9N0I2P uc1ayjO4ZwF+ZycZPA4L+y437WtJ+Calvin/ahPJhN3R [file] Ex8AM+b//yW4Ge69N/HR CLERK+aZOAAzb4VaeiS8myd206eMm7O3v4e+r+GGykzsUl8X4ogrrc+J0gpotrE3/ [file] ICAgICAgICAgICAgICAgICAgICAgICAgICAgICAgICAgICAgICAgICAgICAgICAgICAgICAgICAgICAg ICAgICANCiAgICAgICAgICAgICAgICAgICAgICAgIC AgICAgICAgICAgICAgICAgICAgICAgICAgICAgICAgICAgICAgICAgICAgICAgICAgICAgICAgICAgIC AgICAgICAgICAgICAgICANCiAgICAgICAgICAgICAgICAgICAgICAgICAgICAgICAgICAgICAgICAgIC AgICAgICAgICAgICAgICAgICAgICAgICAgICAgICAg ICAgICAgICAgICAgICAgICAgICAgICAgICANCiAgICAgICAgICAgICAgICAgICAgICAgICAgICAgICAg ICAgICAgICAgICAgICAgICAgICAgICAgICAgICAgICAgICAgICAgICAgICAgICAgICAgICAgICAgICAg ICAgICAgICANCiAgICAgICAgICAgICAgICAgICAgIC AgICAgICAgICAgICAgICAgICAgICAgICAgICAgICAgICAgICAgICAgICAgICAgICAgICAgICAgICAgIC AgICAgICAgICAgICAgICAgICANCiAgICAgICAgICAgICAgICAgICAgICAgICAgICAgICAgICAgICAgIC AgICAgICAgICAgICAgICAgICAgICAgICAgICAgICAg ICAgICAgICAgICAgICAgICAgICAgICAgICAgICANCiAgICAgICAgICAgICAgICAgICAgICAgICAgICAg ICAgICAgICAgICAgICAgICAgICAgICAgICAgICAgICAgICAgICAgICAgICAgICAgICAgICAgICAgICAg ICAgICAgICAgICANCiAgICAgICAgICAgICAgICAgIC AgICAgICAgICAgICAgICAgICAgICAgICAgICAgICAgICAgICAgICAgICAgICAgICAgICAgICAgICAgIC AgICAgICAgICAgICAgICAgICAgICANCiAgICAgICAgICAgICAgICAgICAgICAgICAgICAgICAgICAgIC AgICAgICAgICAgICAgICAgICAgICAgICAgICAgICAg ICAgICAgICAgICAgICAgICAgICAgICAgICAgICAgICANCiAgICAgICAgICAgICAgICAgICAgICAgICAg ICAgICAgICAgICAgICAgICAgICAgICAgICAgICAgICAgICAgICAgICAgICAgICAgICAgICAgICAgICAg ICAgICAgICAgICAgICANCjw/xUDdX9yqlFPbleE0V9 vaYd2GXs8IES8ld9ZdUKNvRLteqkGoVwpYEuDjIREaAnjGZvv5QKwtTA5UiOVcW4QxB3YuJKdnXC5ZVH LoJNTyxOFrJRSeDMBjAaN5YPFgEFxiPO5DnCZuFYuiBGZbHSZvLnNjBOCuJG4NZRGrV565mtWnFj1VIn 0RCiXjZN1ory1KHhLhLKEqHouIPxl6OIauTE9RaKSw K8HpaWFro7xHFnZcX9DQDER8YNLjNs3RNSDiKoPpKFNzZChqZN9yACMxAZTQfDhzpsV6HN3FQQ3irdJm ZJ6UUoCbMl9eWd6DEfTzS3EyR2EvDERwFRMRQCwhXO3HHENyUDA5PHTaOOQmDUTQYcZyY69aZG6FP9Bd a50cNfK3ABGrIqUzBBqgLU88aAnwcdSggATvdBofUE 0NCj4+GImbrpNwIlxMJymqKYIVGvCkJiKGIrDhDBGoOPPgSUIiLuU9XlReQg2OFUWmKMHiOIAdTrDoLP DxDYHeZSpmEAQzSXN9CKF1CXRmWXOcPI5AEhZyHRJaJdQoYoQbFIOyFLAnop6CGTGeBKQeTYZ8AFPvVF BnLWZfQRudENFlEDYlCyZ6KSFiLQGwEJ2ADrPfOBMr GDN4KYMwSKNvKHXaqo8DRXPkLLGmENL4SpNjOUNcUZDxDTsmNIMoYSL5YiP3DBJbPNFaBQ9QVmEhENZr LWP1KsPpYGHtAMQtqu0WOGDvRXBtLwtwPYLyZRNjVROuYPaeVGLeESM6DLXkFMQwZDZkRZ1OUhScDYAs KIw4QaGbCJUkDGCgpj1OZOVmADQiBZF8YkLxGDYyTO WwUSxoAIDqRJZ2MjJiRZDmLGQoJK6LOwUjHOFiJLwgFReoSOLdABIafe4WNYGfZDYzXGSzAOHlZBWdUP ElLRsuWGKhHML5Mbm7RCKgFPOpNH1ZFdTmRCZmJLXhVCmzLFScQOCjvn7WSSYhWJWnYPReZBUnGWHaKC ScAAklLZJkFWG6DIV2SVReKISbOT4DYrBtESRwYrXs NHIgPNPyTKAoky6NaIUuhGdcmb8EWGuCMc2NbVpcVGUnNLoaPc3deJTkRBHvJVZDJh7RyoZsNYJwXBCG HQfoZTOuVWDdLUvcP2I8RHYhM0VxRKojMEzeLqB7G4S4W7B8EhHiHvH7YsEoVDEcTMvvHhHgENQ3XKGt Q0D1CKbzOijuVvP6XLE+SI5rUCe+Uo4Jz7AmiwI0vjWeTTndEXF3Bu9APLIFU0EEMg== ID Date Data Source [id number] 04/26/2020 12:47:10 PM EDT [facility] Name Value Range Interpretation Code Description Data Torri rce(s) Supporting Document(s) HGBA1C 9 % [facility] ID Date Data Source [id number] 04/24/2020 04:49:01 PM EDT [facility] Measurements & CalculationsHeight: 70 inches (5 ft. 10 in.) 177.80 cm Weight: 179 pounds 2 oz. 81.42 kg Body Mass Index (BMI): 25.80BMI Interpretation: OverweightBody Surface Area (BSA): 1.99Vital SignsTemperature: 98.8F tympanic Pulse Rate: 107 beats/minuteRespiratory Rate: 18 respirations/minuteBlood Pressure: 157/92 right arm sitting automaticO2 Saturation: 100% room airVital Signs performed by: Jamison Frost LPN, April 24, 2020 4:53 PMInitial Intake Information From: patientRoom #: 15Infectious Disease / Travel ScreeningRecent travel for you or any close contacts? NoHave you had any close contact with anyone diagnosed with or under investigation for COVID-19 (coronavirus)? NoFever? NoRespiratory symptoms: cough, cold, congestion, shortness of breath, difficulty breathing? NoLoss of smell? NoLoss of taste? NoSmoking, Tobacco, Vaping or Smoke Exposure StatusSmoke Status: never smokerTobacco Use: NoDo you vape? NoPassive Smoke Exposure: YesPassive Smoke Exposure comments: chew tobaccoHealthcare HistorySince your last office visit...Have you been admitted to the hospital? NoHave you been to an emergency room (ER) or urgent care clinic? NoHave you seen another healthcare provider? Yes - endo, cardio, neuroHave you seen a dentist? Yes - NOCOIntake performed by: Jamison Frost LPN, April 24, 2020 4:50 PMRate Your HealthIn general, would you say your health is? GoodPain AssessmentAre you currently having any pain which... You would like your provider to address? Yes Affects your activity level? YesDepression Screening - PHQ-2Over the last two weeks, have you... Had little interest or pleasure in doing things? Not at all Been feeling down, depressed, or hopeless? Not at all PHQ-2 Score: 0Anxiety Screening - BRITTNEY-2Over the last two weeks, have you been... Feeling nervous, anxious, or on edge? Not at all Unable to stop or control worrying? Not at all BRITTNEY-2 Score: 0Food InsecurityWithin the past year...Did you worry whether your food would run out before you got money to buy more? Never trueWas there a time when the food you bought didn't last and you didn't have money to get more? Never truePain AssessmentLocation: lower back, JARVIS legs/ groinDuration: chronicFrequency: DailyCharacter/Quality: aching, burning, sharp, throbbing, pressure and pinchingScreening, Brief Intervention, & Referral to Treatment (SBIRT)Pre-Screening Questions How many times have you have 5 or more drinks in a day? 0How many times have you used an illegal drug or used a prescription medication for a non-medical reason? 0Performed by: Jamison Frost LPN, April 24, 2020 4:52 PMPatient History Medical History:DiabetesSepsis Sep 2019Seizure due to hypogyciemic attack - pt newly had an insulin pump placed. Surgical History:Laser eye surgery Dec 14 2016steel plate in left ankle and legorthoscopic surgery both kneesL foot surgery L toe amputationEndoscopytook out steel plate in left foot - due to sepsisFamily History:No known family historySocial/Personal History: Chief Complaintmed F/U RM 15 History of Present Illness (HPI)Main issue today is groin pain left he has been having for the past day. No better and no worse with time. Had this several months ago and at the time an ultrasound showed swollen glands, possibly due to what was recent amputation at the time and possible infection. The patient has not noticed any open sores, redness and swelling. HPI performed by: Daniel Rajan MD, April 24, 2020 5:15 [facility] InboundProvider Calculated and Reviewed all Clinical Protocols for patient today. Review of Systems General: Denies chills, fever, night sweats. Cardiovascular: Denies chest pain, palpitations, feeling faint. Respiratory: Denies difficulty breathing, shortness of breath. Gastrointestinal: Denies diarrhea, constipation. Genitourinary: Denies pain with urination, urinary frequency, urinary urgency. Physical ExamGeneral Appearance: well nourished, well hydrated, no acute distressRespiratory, Auscultation: clear to auscultation bilaterally; no rales, rhonchi, or wheezesRespiratory, Effort: no intercostal retractions or use of accessory musclesCardiovascular, Auscultation: S1, S2 audible; no murmur, rub, or gallop; RRRAbdomen: soft, non-tender, no masses, bowel sounds normalExternal Genitalia: normal, no lesions or dischargeScrotum: no lesions, cysts, edema, or rash, testes smooth, round, non-tender, without palpable massPenis: no lesions or dischargeGait & Station: normalOrientation: oriented to time, place, and personMood & Affect: no depression, anxiety, or agitationJudgment & Insight: intactCare Management Plan Transitions of CareInboundRate Your HealthIn general, would you say your health is? GoodAssessment & Plan Problems:Assessed:Unspecified essential hypertension (ICD-401.9) ([id number]) Assessment: Instructions: Blood pressure is high today but this is possibly due to the groin pain.Type 2 diabetes mellitus with diabetic polyneuropathy (WGQ40-I66.42) Assessment: Instructions: Recheck as scheduled with Dr. Wilkins.Localized swelling, mass and lump, left lower limb (ICD-729.89) (ICD10- R22.42) Assessment: Instructions: Groin pain which is recurrent. No lymphadenopathy or other masses noted. Possibly strain/sprain. Unlikely new infection as there are not new symptoms of this.Continue Tylenol prn.Patient Instructions/Care Plan: Unspecified essential hypertension: Blood pressure is high today but this is possibly due to the groin pain.Type 2 diabetes mellitus with diabetic polyneuropathy: Recheck as scheduled with Dr. Wilkins.Localized swelling- mass and lump- left lower limb: Groin pain which is recurrent. No lymphadenopathy or other masses noted. Possibly strain/sprain. Unlikely new infe ction as there are not new symptoms of this.Continue Tylenol prn. Plan developed in collaboration with patient and/or familyOrders:Adult - Ofc Vst, EST, Level III [[id number]] Follow-Up Return to clinic: 1 month for follow up Name Value Range Interpretation Code Description Data Torri rce(s) Supporting Document(s) Procedure Social History Code Duration Value Status Description Data Source(s ) Alcohol intake 05/30/2021 12:00:00 AM EDT Ex-drinker (finding) comp leted Ex- drinker (finding) [facility] [facility] Alcohol intake 11/05/2020 12:00:00 AM EDT Not Currently completed [facility] Smoking 11/05/2020 12:00:00 AM EDT Never smoker completed Never s moker [facility] Smoking 09/12/2020 12:00:00 AM EST Never Smoker completed Never S moker eCW1 (Formerly [facility]) Smoking 08/29/2020 12:00:00 AM EST Never Smoker completed Never S moker eCW1 (Formerly [facility]) Smoking 08/29/2020 12:00:00 AM EST Never Smoker completed Never S moker eCW1 (Formerly [facility]) Smoking 08/15/2020 12:00:00 AM EST Never Smoker completed Never S moker eCW1 (Formerly [facility]) Smoking 08/15/2020 12:00:00 AM EST Never Smoker completed Never S moker eCW1 (Formerly [facility]) Smoking 08/01/2020 12:00:00 AM EST Never Smoker completed Never S moker eCW1 ([facility]ly [facility]) Smoking 08/01/2020 12:00:00 AM EST Never Smoker completed Never S moker eCW1 (Formerly [facility]) Smoking 07/25/2020 12:00:00 AM EST Never Smoker completed Never S moker eCW1 ([facility]ly [facility]) Smoking 07/18/2020 12:00:00 AM EST Never Smoker completed Never S moker eCW1 ([facility]ly [facility]) Smoking 07/18/2020 12:00:00 AM EST Never Smoker completed Never S moker eCW1 ([facility]ly [facility]) Vital Signs ID Date Data Source UNK Name Value Range Interpretation Code Description Data Source(s) Body weight 78.926 kg 78.926 kg [facility] Systolic blood pressure 114 mm[Hg] 114 mm[Hg] [facility] Body mass index (BMI) [Ratio] 24.97 kg/m2 24.97 kg/m2 [facility] Diastolic blood pressure 78 mm[Hg] 78 mm[Hg] [facility] Heart rate 90 /min 90 /min [facility] Body height 177.8 cm 177.8 cm [facility] Oxygen saturation in Arterial blood by Pulse oximetry 97 % 97 % [facility] Diastolic blood pressure 86 mm[Hg] 86 mm[Hg] OCOEE ([facility]) Diastolic blood pressure 91 mm[Hg] 91 mm[Hg] FRANCK ([facility]) Body height 70 [in_i] 70 [in_i] FRANCK ([facility]) Body mass index (BMI) [Ratio] 26.1 kg/m2 26.1 k g/m2 FRANCK ([facility]) Systolic blood pressure 129 mm[Hg] 129 mm[Hg] A [facility] ([facility]) Systolic blood pressure 157 mm[Hg] 157 mm[Hg] A [facility] ([facility]) Body weight 2912 [oz_av] 2912 [oz_av] FRANCK ([facility]) Body temperature 97.6 [degF] 97.6 [degF] MEDENT ([facility], ) Diastolic blood pressure 80 mm[Hg] 80 mm[Hg] FRANCK ([facility]) Body height 70 [in_i] 70 [in_i] FRANCK ([facility]) Body mass index (BMI) [Ratio] 25.5 kg/m2 25.5 k g/m2 FRANCK ([facility]) Systolic blood pressure 119 mm[Hg] 119 mm[Hg] A THENA ([facility]) Body weight 2848 [oz_av] 2848 [oz_av] FRANCK ([facility]) Diastolic blood pressure 80 mm[Hg] 80 mm[Hg] FRANCK ([facility]) Body height 70 [in_i] 70 [in_i] FRANCK ([facility]) Body mass index (BMI) [Ratio] 25.5 kg/m2 25.5 k g/m2 FRANCK ([facility]) Systolic blood pressure 119 mm[Hg] 119 mm[Hg] A THENA ([facility]) Body weight 2848 [oz_av] 2848 [oz_av] FRANCK ([facility]) Diastolic blood pressure 85 mm[Hg] 85 mm[Hg] FRANCK ([facility]) Body height 70 [in_i] 70 [in_i] FRANCK ([facility]) Body mass index (BMI) [Ratio] 25.7 kg/m2 25.7 k g/m2 FRANCK ([facility]) Systolic blood pressure 121 mm[Hg] 121 mm[Hg] A THENA ([facility]) Body weight 2866 [oz_av] 2866 [oz_av] FRANCK ([facility]) Diastolic blood pressure 85 mm[Hg] 85 mm[Hg] FRANCK ([facility]) Body height 70 [in_i] 70 [in_i] FRANCK ([facility]) Body mass index (BMI) [Ratio] 25.7 kg/m2 25.7 k g/m2 FRANCK ([facility]) Systolic blood pressure 121 mm[Hg] 121 mm[Hg] A THENA ([facility]) Body weight 2866 [oz_av] 2866 [oz_av] FRANCK ([facility]) Body height 70 [in_i] 70 [in_i] FRANCK ([facility]) Body mass index (BMI) [Ratio] 25.7 kg/m2 25.7 k g/m2 FRANCK ([facility]) Systolic blood pressure 121 mm[Hg] 121 mm[Hg] A THENA ([facility]) Body weight 2866 [oz_av] 2866 [oz_av] FRANCK ([facility]) Diastolic blood pressure 85 mm[Hg] 85 mm[Hg] FRANCK ([facility]) Body temperature 97.8 [degF] 97.8 [degF] [facility], ) Body height 70 [in_i] 70 [in_i] [facility] 5'10" Body weight 176.00 [lb_av] 176.00 [lb_av] MEDEN T ([facility]) Body mass index (BMI) [Ratio] 25.3 kg/m2 25.3 k g/m2 [facility] ([facility]) [place] body weight 166 [lb_av] 166 [lb_av] MEDEN T ([facility]) Body weight 79.834 kg 79.834 kg [facility] ([facility]) Body surface area Derived from formula 1.98 m2 1.98 m2 [facility]) Diastolic blood pressure 82 mm[Hg] 82 mm[Hg] MEDENT ([facility], ) Body height 70 [in_i] 70 [in_i] MEDENT ([facility]) 5'10" Body weight 176.00 [lb_av] 176.00 [lb_av] MEDEN T ([facility]) Body mass index (BMI) [Ratio] 25.3 kg/m2 25.3 k g/m2 MEDENT ([facility], ) [place] body weight 166 [lb_av] 166 [lb_av] LANCEEN T ([facility], ) Body weight 79.834 kg 79.834 kg MEDENT ([facility]) Body surface area Derived from formula 1.98 m2 1.98 m2 MEDENT ([facility]) Systolic blood pressure 132 mm[Hg] 132 mm[Hg] M EDENT ([facility], ) Body temperature 97.6 [degF] 97.6 [degF] MEDENT ([facility]) Diastolic blood pressure 77 mm[Hg] 77 mm[Hg] FRANCK ([facility]) Body height 70 [in_i] 70 [in_i] OCOEE ([facility]) Body mass index (BMI) [Ratio] 25.8 kg/m2 25.8 k g/m2 FRANCK ([facility]) Systolic blood pressure 119 mm[Hg] 119 mm[Hg] A [facility] ([facility]) Body weight 2880 [oz_av] 2880 [oz_av] FRANCK ([facility]) Diastolic blood pressure 77 mm[Hg] 77 mm[Hg] FRANCK ([facility]) Body height 70 [in_i] 70 [in_i] FRANCK ([facility]) Body mass index (BMI) [Ratio] 25.8 kg/m2 25.8 k g/m2 FRANCK ([facility]) Systolic blood pressure 119 mm[Hg] 119 mm[Hg] [facility] Body weight 2880 [oz_av] 2880 [oz_av] FRANCK ([facility]) Diastolic blood pressure 77 mm[Hg] 77 mm[Hg] FRANCK ([facility]) Body height 70 [in_i] 70 [in_i] FRANCK ([facility]) Body mass index (BMI) [Ratio] 25.8 kg/m2 25.8 k g/m2 FRANCK ([facility]) Systolic blood pressure 119 mm[Hg] 119 mm[Hg] A [facility] ([facility]) Body weight 2880 [oz_av] 2880 [oz_av] FRANCK ([facility]) Diastolic blood pressure 77 mm[Hg] 77 mm[Hg] FRANCK ([facility]) Body height 70 [in_i] 70 [in_i] FRANCK ([facility]) Body mass index (BMI) [Ratio] 25.8 kg/m2 25.8 k g/m2 FRANCK ([facility]) Systolic blood pressure 119 mm[Hg] 119 mm[Hg] A THENA ([facility]) Body weight 2880 [oz_av] 2880 [oz_av] FRANCK ([facility]) Systolic blood pressure 126 mm[Hg] 126 mm[Hg] M EDENT ([facility]) Diastolic blood pressure 84 mm[Hg] 84 mm[Hg] MEDENT ([facility]) Heart rate 81 /min 81 /min MEDENT ([facility]) Body temperature 97.7 [degF] 97.7 [degF] MEDENT ([facility]) Body height 71 [in_i] 71 [in_i] MEDENT ([facility]) 5'11" Body weight 180.25 [lb_av] 180.25 [lb_av] MEDEN T ([facility]) Body mass index (BMI) [Ratio] 25.1 kg/m2 25.1 k g/m2 MEDENT ([facility]) Oxygen saturation in Arterial blood by Pulse oximetry 99 % 99 % MEDENT ([facility]) Body height 70 [in_i] 70 [in_i] FRANCK ([facility]) Body height 70 [in_i] 70 [in_i] FRANCK ([facility]) Body height 70 [in_i] 70 [in_i] FRANCK ([facility]) Body height 70 [in_i] 70 [in_i] FRANCK ([facility]) Body height 70 [in_i] 70 [in_i] FRANCK ([facility]) Diastolic blood pressure 82 mm[Hg] 82 mm[Hg] FRANCK ([facility]) Body mass index (BMI) [Ratio] 25.9 kg/m2 25.9 k g/m2 FRANCK ([facility]) Systolic blood pressure 140 mm[Hg] 140 mm[Hg] A THENA ([facility]) Body weight 2883.2 [oz_av] 2883.2 [oz_av] ATHEN A ([facility]) Body height 70 [in_i] 70 [in_i] FRANCK ([facility]) Diastolic blood pressure 82 mm[Hg] 82 mm[Hg] FRANCK ([facility]) Body height 70 [in_i] 70 [in_i] FRANCK ([facility]) Body mass index (BMI) [Ratio] 25.9 kg/m2 25.9 k g/m2 FRANCK ([facility]) Systolic blood pressure 140 mm[Hg] 140 mm[Hg] [facility]) Body weight 2883.2 [oz_av] 2883.2 [oz_av] ATHEN A ([facility]) Diastolic blood pressure 82 mm[Hg] 82 mm[Hg] FRANCK ([facility]) Body height 70 [in_i] 70 [in_i] FRANCK ([facility]) Body mass index (BMI) [Ratio] 25.9 kg/m2 25.9 k g/m2 FRANCK ([facility]) Systolic blood pressure 140 mm[Hg] 140 mm[Hg] [facility]) Body weight 2883.2 [oz_av] 2883.2 [oz_av] ATHEN A ([facility]) Diastolic blood pressure 82 mm[Hg] 82 mm[Hg] FRANCK ([facility]) Body height 70 [in_i] 70 [in_i] FRANCK ([facility]) Body mass index (BMI) [Ratio] 25.9 kg/m2 25.9 k g/m2 FRANCK ([facility]) Systolic blood pressure 140 mm[Hg] 140 mm[Hg] [facility]) Body weight 2883.2 [oz_av] 2883.2 [oz_av] ATHEN A ([facility]) Body mass index (BMI) [Ratio] 25.9 kg/m2 25.9 k g/m2 FRANCK ([facility]) Systolic blood pressure 140 mm[Hg] 140 mm[Hg] [facility]) Body weight 2883.2 [oz_av] 2883.2 [oz_av] ATHEN A ([facility]) Diastolic blood pressure 82 mm[Hg] 82 mm[Hg] FRANCK ([facility]) Body height 70 [in_i] 70 [in_i] FRANCK ([facility]) Diastolic blood pressure 82 mm[Hg] 82 mm[Hg] FRANCK ([facility]) Body height 70 [in_i] 70 [in_i] FRANKC ([facility]) Body mass index (BMI) [Ratio] 25.9 kg/m2 25.9 k g/m2 FRANCK ([facility]) Systolic blood pressure 140 mm[Hg] 140 mm[Hg] Oh DESAIA ([facility]) Body weight 2883.2 [oz_av] 2883.2 [oz_av] ATHEN A ([facility]) Systolic blood pressure 130 mm[Hg] 130 mm[Hg] [facility] Diastolic blood pressure 90 mm[Hg] 90 mm[Hg] [facility] Heart rate 85 /min 85 /min [facility] Respiratory rate 18 /min 18 /min [facility] Body height 177.8 cm 177.8 cm [facility] Body weight 81.194 kg 81.194 kg [facility] Body mass index (BMI) [Ratio] 25.68 kg/m2 25.68 kg/m2 [facility] Oxygen saturation in Arterial blood by Pulse oximetry 98 % 98 % [facility] Body weight 179.00 [lb_av] 179.00 [lb_av] LANCEEN T ([facility], ) [place] body weight 172 [lb_av] 172 [lb_av] MEDEN T ([facility], ) Body weight 81.194 kg 81.194 kg MALOU ([facility], ) Body height 71 [in_i] 71 [in_i] MALOU ([facility] 5'11" Diastolic blood pressure 87 mm[Hg] 87 mm[Hg] MALOU [facility] Body mass index (BMI) [Ratio] 25.0 kg/m2 25.0 k g/m2 MEDENT ([facility], ) Body surface area Derived from formula 2.01 m2 2.01 m2 [facility], ) Systolic blood pressure 135 mm[Hg] 135 mm[Hg] M EDENT ([facility], ) Diastolic blood pressure 99 mm[Hg] 99 mm[Hg] FRANCK ([facility]) Body height 70 [in_i] 70 [in_i] FRANCK ([facility]) Body mass index (BMI) [Ratio] 25.7 kg/m2 25.7 k g/m2 FRANCK ([facility]) Systolic blood pressure 153 mm[Hg] 153 mm[Hg] A [facility] ([facility]) Body weight 2870 [oz_av] 2870 [oz_av] FRANCK ([facility]) Diastolic blood pressure 99 mm[Hg] 99 mm[Hg] FRANCK ([facility]) Body height 70 [in_i] 70 [in_i] FRANCK ([facility]) Body mass index (BMI) [Ratio] 25.7 kg/m2 25.7 k g/m2 FRANCK ([facility]) Systolic blood pressure 153 mm[Hg] 153 mm[Hg] A [facility] ([facility]) Body weight 2870 [oz_av] 2870 [oz_av] FRANCK ([facility]) Diastolic blood pressure 99 mm[Hg] 99 mm[Hg] FRANCK ([facility]) Body height 70 [in_i] 70 [in_i] FRANCK ([facility]) Body mass index (BMI) [Ratio] 25.7 kg/m2 25.7 k g/m2 FRANCK ([facility]) Systolic blood pressure 153 mm[Hg] 153 mm[Hg] [facility]) Body weight 2870 [oz_av] 2870 [oz_av] FRANCK ([facility]) Diastolic blood pressure 99 mm[Hg] 99 mm[Hg] FRANCK ([facility]) Body height 70 [in_i] 70 [in_i] FRANCK ([facility]) Body mass index (BMI) [Ratio] 25.7 kg/m2 25.7 k g/m2 FRANCK ([facility]) Systolic blood pressure 153 mm[Hg] 153 mm[Hg] A THENA ([facility]) Body weight 2870 [oz_av] 2870 [oz_av] FRANCK ([facility]) Diastolic blood pressure 99 mm[Hg] 99 mm[Hg] FRANCK ([facility]) Body height 70 [in_i] 70 [in_i] FRANCK ([facility]) Body mass index (BMI) [Ratio] 25.7 kg/m2 25.7 k g/m2 FRANCK ([facility]) Systolic blood pressure 153 mm[Hg] 153 mm[Hg] [facility]) Body weight 2870 [oz_av] 2870 [oz_av] FRANCK ([facility]) Diastolic blood pressure 99 mm[Hg] 99 mm[Hg] FRANCK ([facility]) Body height 70 [in_i] 70 [in_i] FRANCK ([facility]) Body mass index (BMI) [Ratio] 25.7 kg/m2 25.7 k g/m2 FRANCK ([facility]) Systolic blood pressure 153 mm[Hg] 153 mm[Hg] A THENA ([facility]) Body weight 2870 [oz_av] 2870 [oz_av] FRANCK ([facility]) Diastolic blood pressure 99 mm[Hg] 99 mm[Hg] FRANCK ([facility]) Body height 70 [in_i] 70 [in_i] FRANCK ([facility]) Body mass index (BMI) [Ratio] 25.7 kg/m2 25.7 k g/m2 FRANCK ([facility]) Systolic blood pressure 153 mm[Hg] 153 mm[Hg] A THENA ([facility]) Body weight 2870 [oz_av] 2870 [oz_av] FRANCK ([facility]) Body weight 184 [lb_av] 184 [lb_av] eCW1 ([facility]) Body weight kg eCW1 ([facility]) Body height 71 [in_i] 71 [in_i] eCW1 ([facility]) Body mass index (BMI) [Ratio] 25.66 kg/m2 25.66 kg/m2 eCW1 ([facility]) Heart rate 74 /min 74 /min eCW1 ([facility]) Respiratory rate 18 /min 18 /min eCW1 ([facility]) Body temperature 95.8 [degF] 95.8 [degF] eCW1 ( [facility]) Systolic blood pressure 136 mm[Hg] 136 mm[Hg] e CW1 ([facility]) Diastolic blood pressure 76 mm[Hg] 76 mm[Hg] eCW1 ([facility]) Diastolic blood pressure 83 mm[Hg] 83 mm[Hg] FRANCK ([facility]) Body height 70 [in_i] 70 [in_i] FRANCK ([facility]) Body mass index (BMI) [Ratio] 25.1 kg/m2 25.1 k g/m2 FRANCK ([facility]) Systolic blood pressure 126 mm[Hg] 126 mm[Hg] A [facility] ([facility]) Body weight 2804 [oz_av] 2804 [oz_av] FRANCK ([facility]) Diastolic blood pressure 83 mm[Hg] 83 mm[Hg] FRANCK ([facility]) Body height 70 [in_i] 70 [in_i] FRANCK ([facility]) Body mass index (BMI) [Ratio] 25.1 kg/m2 25.1 k g/m2 FRANCK ([facility]) Systolic blood pressure 126 mm[Hg] 126 mm[Hg] A THEN ([facility]) Body weight 2804 [oz_av] 2804 [oz_av] FRANCK ([facility]) Diastolic blood pressure 83 mm[Hg] 83 mm[Hg] FRANCK ([facility]) Body height 70 [in_i] 70 [in_i] FRANCK ([facility]) Body mass index (BMI) [Ratio] 25.1 kg/m2 25.1 k g/m2 FRANCK ([facility]) Systolic blood pressure 126 mm[Hg] 126 mm[Hg] A THENA ([facility]) Body weight 2804 [oz_av] 2804 [oz_av] FRANCK ([facility]) Diastolic blood pressure 83 mm[Hg] 83 mm[Hg] FRANCK ([facility]) Body height 70 [in_i] 70 [in_i] FRANCK ([facility]) Body mass index (BMI) [Ratio] 25.1 kg/m2 25.1 k g/m2 FRANCK ([facility]) Systolic blood pressure 126 mm[Hg] 126 mm[Hg] A THENA ([facility]) Body weight 2804 [oz_av] 2804 [oz_av] FRANCK ([facility]) Diastolic blood pressure 83 mm[Hg] 83 mm[Hg] FRANCK ([facility]) Body height 70 [in_i] 70 [in_i] FRANCK ([facility]) Body mass index (BMI) [Ratio] 25.1 kg/m2 25.1 k g/m2 FRANCK ([facility]) Systolic blood pressure 126 mm[Hg] 126 mm[Hg] A THENA ([facility]) Body weight 2804 [oz_av] 2804 [oz_av] FRANCK ([facility]) Diastolic blood pressure 83 mm[Hg] 83 mm[Hg] FRANCK ([facility]) Body height 70 [in_i] 70 [in_i] FRANCK ([facility]) Body mass index (BMI) [Ratio] 25.1 kg/m2 25.1 k g/m2 FRANCK ([facility]) Systolic blood pressure 126 mm[Hg] 126 mm[Hg] A THENA ([facility]) Body weight 2804 [oz_av] 2804 [oz_av] FRANCK ([facility]) Diastolic blood pressure 83 mm[Hg] 83 mm[Hg] FRANCK ([facility]) Body height 70 [in_i] 70 [in_i] FRANCK ([facility]) Body mass index (BMI) [Ratio] 25.1 kg/m2 25.1 k g/m2 FRANCK ([facility]) Systolic blood pressure 126 mm[Hg] 126 mm[Hg] A THENA ([facility]) Body weight 2804 [oz_av] 2804 [oz_av] FRANCK ([facility]) Diastolic blood pressure 83 mm[Hg] 83 mm[Hg] FRANCK ([facility]) Body height 70 [in_i] 70 [in_i] FRANCK ([facility]) Body mass index (BMI) [Ratio] 25.1 kg/m2 25.1 k g/m2 FRANCK ([facility]) Systolic blood pressure 126 mm[Hg] 126 mm[Hg] A THENA ([facility]) Body weight 2804 [oz_av] 2804 [oz_av] FRANCK ([facility]) Body mass index (BMI) [Ratio] 24.3 kg/m2 24.3 k g/m2 MEDENT ([facility] Oxygen saturation in Arterial blood by Pulse oximetry 99 % 99 % MEDENT ([facility]) Systolic blood pressure 136 mm[Hg] 136 mm[Hg] M EDENT ([facility]) Diastolic blood pressure 78 mm[Hg] 78 mm[Hg] MEDENT ([facility]) Heart rate 66 /min 66 /min MEDENT ([facility]) Body temperature 97.0 [degF] 97.0 [degF] MEDENT ([facility]) Body height 71 [in_i] 71 [in_i] MEDENT ([facility]) 5'11" Body weight 174.00 [lb_av] 174.00 [lb_av] MEDEN T ([facility]) Body weight 184 [lb_av] 184 [lb_av] eCW1 ([facility]) Body weight kg eCW1 ([facility]) Body height 71 [in_i] 71 [in_i] eCW1 ([facility]) Body mass index (BMI) [Ratio] 25.66 kg/m2 25.66 kg/m2 eCW1 ([facility]) Heart rate 88 /min 88 /min eCW1 ([facility]) Respiratory rate 18 /min 18 /min eCW1 ([facility]) Body temperature 98.7 [degF] 98.7 [degF] eCW1 ( [facility]) Systolic blood pressure 141 mm[Hg] 141 mm[Hg] e CW1 ([facility]) Diastolic blood pressure 79 mm[Hg] 79 mm[Hg] eCW1 ([facility]) Body weight 184 [lb_av] 184 [lb_av] eCW1 ([facility]) Body weight kg eCW1 ([facility]) Body height 71 [in_i] 71 [in_i] eCW1 ([facility]) Body mass index (BMI) [Ratio] 25.66 kg/m2 25.66 kg/m2 eCW1 ([facility]) Heart rate 96 /min 96 /min eCW1 ([facility] hospital) Respiratory rate 18 /min 18 /min eCW1 ([facility]) Body temperature 97.5 [degF] 97.5 [degF] eCW1 ( [facility]) Systolic blood pressure 160 mm[Hg] 160 mm[Hg] e CW1 ([facility]) Diastolic blood pressure 89 mm[Hg] 89 mm[Hg] eCW1 ([facility]) Body weight 184 [lb_av] 184 [lb_av] eCW1 ([facility]) Body weight kg eCW1 ([facility]) Body height 71 [in_i] 71 [in_i] eCW1 ([facility]) Body mass index (BMI) [Ratio] 25.66 kg/m2 25.66 kg/m2 eCW1 ([facility]) Heart rate 84 /min 84 /min eCW1 ([facility] hospital) Respiratory rate 18 /min 18 /min eCW1 ([facility]) Body temperature 97.9 [degF] 97.9 [degF] eCW1 ( [facility]) Systolic blood pressure 140 mm[Hg] 140 mm[Hg] e CW1 ([facility]) Diastolic blood pressure 76 mm[Hg] 76 mm[Hg] eCW1 ([facility]) Body weight 184 [lb_av] 184 [lb_av] eCW1 ([facility]) Body weight kg eCW1 ([facility]) Body height 71 [in_i] 71 [in_i] eCW1 ([facility]) Body mass index (BMI) [Ratio] 25.66 kg/m2 25.66 kg/m2 eCW1 ([facility]) Heart rate 95 /min 95 /min eCW1 ([facility]) Respiratory rate 17 /min 17 /min eCW1 ([facility]) Body temperature 98.2 [degF] 98.2 [degF] eCW1 ( [facility]ly [facility]) Systolic blood pressure 153 mm[Hg] 153 mm[Hg] A [facility] ([facility]) Body weight 2886 [oz_av] 2886 [oz_av] FRANCK ([facility]) Diastolic blood pressure 89 mm[Hg] 89 mm[Hg] FRANCK ([facility]) Diastolic blood pressure 96 mm[Hg] 96 mm[Hg] [facility]CK ([facility]) Body height 70 [in_i] 70 [in_i] FRANCK ([facility]) Body mass index (BMI) [Ratio] 25.9 kg/m2 25.9 k g/m2 FRANCK ([facility]) Systolic blood pressure 136 mm[Hg] 136 mm[Hg] A [facility] ([facility]) Diastolic blood pressure 96 mm[Hg] 96 mm[Hg] FRANCK ([facility]) Body height 70 [in_i] 70 [in_i] FRANCK ([facility]) Body mass index (BMI) [Ratio] 25.9 kg/m2 25.9 k g/m2 FRANCK ([facility]) Diastolic blood pressure 89 mm[Hg] 89 mm[Hg] [facility] ([facility]) Systolic blood pressure 136 mm[Hg] 136 mm[Hg] [facility] Systolic blood pressure 153 mm[Hg] 153 mm[Hg] A [facility] ([facility]) Body weight 2886 [oz_av] 2886 [oz_av] FRANCK ([facility]) Diastolic blood pressure 89 mm[Hg] 89 mm[Hg] FRANCK ([facility]) Diastolic blood pressure 96 mm[Hg] 96 mm[Hg] FRAN[facility] ([facility]) Body height 70 [in_i] 70 [in_i] FRANCK ([facility]) Body mass index (BMI) [Ratio] 25.9 kg/m2 25.9 k g/m2 FRANCK ([facility]) Systolic blood pressure 136 mm[Hg] 136 mm[Hg] A THENA ([facility]) Systolic blood pressure 153 mm[Hg] 153 mm[Hg] [facility] Body weight 2886 [oz_av] 2886 [oz_av] FRANCK ([facility]) Diastolic blood pressure 89 mm[Hg] 89 mm[Hg] FR[facility] ([facility]) Diastolic blood pressure 96 mm[Hg] 96 mm[Hg] [facility] ([facility]) Body height 70 [in_i] 70 [in_i] FRANCK ([facility]) Body mass index (BMI) [Ratio] 25.9 kg/m2 25.9 k g/m2 FRAN[facility] ([facility]) Systolic blood pressure 136 mm[Hg] 136 mm[Hg] A THENA ([facility]) Systolic blood pressure 153 mm[Hg] 153 mm[Hg] [facility] Body weight 2886 [oz_av] 2886 [oz_av] FRANCK ([facility]) Diastolic blood pressure 89 mm[Hg] 89 mm[Hg] [facility] ([facility]) Diastolic blood pressure 96 mm[Hg] 96 mm[Hg] [facility] ([facility]) Body height 70 [in_i] 70 [in_i] [facility] ([facility]) Body mass index (BMI) [Ratio] 25.9 kg/m2 25.9 k g/m2 [facility] ([facility]) Systolic blood pressure 136 mm[Hg] 136 mm[Hg] A THENA ([facility]) Systolic blood pressure 153 mm[Hg] 153 mm[Hg] A THENA ([facility]) Body weight 2886 [oz_av] 2886 [oz_av] FRANCK ([facility]) Diastolic blood pressure 89 mm[Hg] 89 mm[Hg] [facility] ([facility]) Diastolic blood pressure 96 mm[Hg] 96 mm[Hg] [facility] ([facility]) Body height 70 [in_i] 70 [in_i] [facility] ([facility]) Body mass index (BMI) [Ratio] 25.9 kg/m2 25.9 k g/m2 [facility] ([facility]) Systolic blood pressure 136 mm[Hg] 136 mm[Hg] A THENA ([facility]) Systolic blood pressure 153 mm[Hg] 153 mm[Hg] A THENA ([facility]) Body weight 2886 [oz_av] 2886 [oz_av] FRANCK ([facility]) Diastolic blood pressure 89 mm[Hg] 89 mm[Hg] [facility] ([facility]) Diastolic blood pressure 96 mm[Hg] 96 mm[Hg] [facility] ([facility]) Body height 70 [in_i] 70 [in_i] [facility]AN[facility] ([facility]) Body mass index (BMI) [Ratio] 25.9 kg/m2 25.9 k g/m2 FRANCK ([facility]) Systolic blood pressure 136 mm[Hg] 136 mm[Hg] A THENA ([facility]) Systolic blood pressure 153 mm[Hg] 153 mm[Hg] A THENA ([facility]) Body weight 2886 [oz_av] 2886 [oz_av] FRANCK ([facility]) Diastolic blood pressure 89 mm[Hg] 89 mm[Hg] [facility] ([facility]) Diastolic blood pressure 96 mm[Hg] 96 mm[Hg] [facility] ([facility]) Body height 70 [in_i] 70 [in_i] [facility] ([facility]) Body mass index (BMI) [Ratio] 25.9 kg/m2 25.9 k g/m2 [facility] ([facility]) Systolic blood pressure 136 mm[Hg] 136 mm[Hg] A THENA ([facility]) Systolic blood pressure 153 mm[Hg] 153 mm[Hg] A THENA ([facility]) Body weight 2886 [oz_av] 2886 [oz_av] FRANCK ([facility]) Diastolic blood pressure 89 mm[Hg] 89 mm[Hg] [facility] ([facility]) Diastolic blood pressure 96 mm[Hg] 96 mm[Hg] [facility] ([facility]) Body height 70 [in_i] 70 [in_i] [facility] ([facility]) Body mass index (BMI) [Ratio] 25.9 kg/m2 25.9 k g/m2 [facility] ([facility]) Systolic blood pressure 136 mm[Hg] 136 mm[Hg] A THENA ([facility]) Systolic blood pressure 153 mm[Hg] 153 mm[Hg] A THENA ([facility]) Body weight 2886 [oz_av] 2886 [oz_av] FRANCK ([facility]) Body weight 184 [lb_av] 184 [lb_av] eCW1 ([facility]) Body height 71 [in_i] 71 [in_i] eCW1 ([facility]) Systolic blood pressure 167 mm[Hg] 167 mm[Hg] e CW1 ([facility]) Diastolic blood pressure 91 mm[Hg] 91 mm[Hg] eCW1 ([facility]) Body mass index (BMI) [Ratio] 25.66 kg/m2 25.66 kg/m2 eCW1 ([facility]) Heart rate 77 /min 77 /min eCW1 (Critical access hospital) Respiratory rate 16 /min 16 /min eCW1 ([facility]) Body temperature 97.6 [degF] 97.6 [degF] eCW1 ( [facility]) Body weight 184 [lb_av] 184 [lb_av] eCW1 ([facility]) Body weight kg eCW1 ([facility]) Body height 71 [in_i] 71 [in_i] eCW1 ([facility]) Body mass index (BMI) [Ratio] 25.66 kg/m2 25.66 kg/m2 eCW1 ([facility]) Heart rate 100 /min 100 /min eCW1 ([facility] access hospital) Respiratory rate 18 /min 18 /min eCW1 ([facility]) Body temperature 97.1 [degF] 97.1 [degF] eCW1 ( [facility]) Systolic blood pressure 189 mm[Hg] 189 mm[Hg] e CW1 ([facility]) Diastolic blood pressure 96 mm[Hg] 96 mm[Hg] eCW1 ([facility]) Systolic blood pressure 138 mm[Hg] 138 mm[Hg] M EDENT ([facility]) Diastolic blood pressure 90 mm[Hg] 90 mm[Hg] MEDENT ([facility]) Heart rate 76 /min 76 /min MEDENT ([facility]) Body temperature 97.5 [degF] 97.5 [degF] MEDENT ([facility]) Body height 71 [in_i] 71 [in_i] MEDENT ([facility]) 5'11" Body weight 183.12 [lb_av] 183.12 [lb_av] MEDEN T ([facility]) Body mass index (BMI) [Ratio] 25.5 kg/m2 25.5 k g/m2 MEDENT ([facility]) Respiratory rate 17 /min 17 /min eCW1 ([facility]) Body temperature 98.9 [degF] 98.9 [degF] eCW1 ( [facility]) Systolic blood pressure 134 mm[Hg] 134 mm[Hg] e CW1 ([facility]) Diastolic blood pressure 76 mm[Hg] 76 mm[Hg] eCW1 ([facility]) Body weight 184 [lb_av] 184 [lb_av] eCW1 ([facility]) Body weight kg eCW1 ([facility]) Body height 71 [in_i] 71 [in_i] eCW1 ([facility]) Body mass index (BMI) [Ratio] 25.66 kg/m2 25.66 kg/m2 eCW1 ([facility]) Heart rate 86 /min 86 /min eCW1 ([facility]) Body weight 184 [lb_av] 184 [lb_av] eCW1 ([facility]) Body weight kg eCW1 ([facility]) Body height 71 [in_i] 71 [in_i] eCW1 ([facility]) Body mass index (BMI) [Ratio] 25.66 kg/m2 25.66 kg/m2 eCW1 ([facility]) Body temperature 97.7 [degF] 97.7 [degF] eCW1 ( [facility]) Heart rate 93 /min 93 /min eCW1 (Critical access hospital) Systolic blood pressure 193 mm[Hg] 193 mm[Hg] e CW1 ([facility]) Respiratory rate 18 /min 18 /min eCW1 ([facility]) Diastolic blood pressure 86 mm[Hg] 86 mm[Hg] eCW1 ([facility]) Systolic blood pressure 126 mm[Hg] 126 mm[Hg] M EDENT ([facility]) Diastolic blood pressure 80 mm[Hg] 80 mm[Hg] MEDENT ([facility]) Heart rate 88 /min 88 /min MEDENT ([facility]) Body temperature 97.3 [degF] 97.3 [degF] MEDENT ([facility]) Body height 71 [in_i] 71 [in_i] MEDENT ([facility]) 5'11" Body weight 180.44 [lb_av] 180.44 [lb_av] MEDEN T ([facility]) Body mass index (BMI) [Ratio] 25.2 kg/m2 25.2 k g/m2 MEDENT ([facility] Oxygen saturation in Arterial blood by Pulse oximetry 99 % 99 % MEDENT ([facility] ) Body weight 184 [lb_av] 184 [lb_av] eCW1 ([facility]) Body weight kg eCW1 ([facility]) Body height 71 [in_i] 71 [in_i] eCW1 ([facility]) Body mass index (BMI) [Ratio] 25.66 kg/m2 25.66 kg/m2 eCW1 ([facility]) Heart rate 87 /min 87 /min eCW1 (Critical access hospital) Respiratory rate 17 /min 17 /min eCW1 ([facility]) Body temperature 97.8 [degF] 97.8 [degF] eCW1 ( [facility]) Systolic blood pressure 145 mm[Hg] 145 mm[Hg] e CW1 ([facility]) Diastolic blood pressure 87 mm[Hg] 87 mm[Hg] eCW1 ([facility]) Diastolic blood pressure 96 mm[Hg] 96 mm[Hg] FRANCK ([facility]) Body height 70 [in_i] 70 [in_i] FRANCK ([facility]) Body mass index (BMI) [Ratio] 26 kg/m2 26 kg/ m2 FRANCK ([facility]) Systolic blood pressure 142 mm[Hg] 142 mm[Hg] A [facility] ([facility]) Body weight 2904 [oz_av] 2904 [oz_av] FRANCK ([facility]) Diastolic blood pressure 96 mm[Hg] 96 mm[Hg] FRANCK ([facility]) Body height 70 [in_i] 70 [in_i] FRANCK ([facility]) Body mass index (BMI) [Ratio] 26 kg/m2 26 kg/ m2 FRANCK ([facility]) Systolic blood pressure 142 mm[Hg] 142 mm[Hg] A THENA ([facility]) Body weight 2904 [oz_av] 2904 [oz_av] FRANCK ([facility]) Diastolic blood pressure 96 mm[Hg] 96 mm[Hg] FRANCK ([facility]) Body height 70 [in_i] 70 [in_i] FRANCK ([facility]) Body mass index (BMI) [Ratio] 26 kg/m2 26 kg/ m2 FRANCK ([facility]) Systolic blood pressure 142 mm[Hg] 142 mm[Hg] A THENA ([facility]) Body weight 2904 [oz_av] 2904 [oz_av] FRNACK ([facility]) Diastolic blood pressure 96 mm[Hg] 96 mm[Hg] FRANCK ([facility]) Body height 70 [in_i] 70 [in_i] FRANCK ([facility]) Body mass index (BMI) [Ratio] 26 kg/m2 26 kg/ m2 FRANCK ([facility]) Systolic blood pressure 142 mm[Hg] 142 mm[Hg] A THENA ([facility]) Body weight 2904 [oz_av] 2904 [oz_av] FRANCK ([facility]) Diastolic blood pressure 96 mm[Hg] 96 mm[Hg] FRANCK ([facility]) Body height 70 [in_i] 70 [in_i] FRANCK ([facility]) Body mass index (BMI) [Ratio] 26 kg/m2 26 kg/ m2 FRANCK ([facility]) Systolic blood pressure 142 mm[Hg] 142 mm[Hg] A THENA ([facility]) Body weight 2904 [oz_av] 2904 [oz_av] FRANCK ([facility]) Diastolic blood pressure 96 mm[Hg] 96 mm[Hg] FRANCK ([facility]) Body height 70 [in_i] 70 [in_i] FRANCK ([facility]) Body mass index (BMI) [Ratio] 26 kg/m2 26 kg/ m2 FRANCK ([facility]) Systolic blood pressure 142 mm[Hg] 142 mm[Hg] A THENA ([facility]) Body weight 2904 [oz_av] 2904 [oz_av] FRANCK ([facility]) Diastolic blood pressure 96 mm[Hg] 96 mm[Hg] FRANCK ([facility]) Body height 70 [in_i] 70 [in_i] FRANCK ([facility]) Body mass index (BMI) [Ratio] 26 kg/m2 26 kg/ m2 FRANCK ([facility]) Systolic blood pressure 142 mm[Hg] 142 mm[Hg] A THENA ([facility]) Body weight 2904 [oz_av] 2904 [oz_av] FRANCK ([facility]) Diastolic blood pressure 96 mm[Hg] 96 mm[Hg] FRANCK ([facility]) Body height 70 [in_i] 70 [in_i] FRANCK ([facility]) Body mass index (BMI) [Ratio] 26 kg/m2 26 kg/ m2 FRANCK ([facility]) Systolic blood pressure 142 mm[Hg] 142 mm[Hg] A THENA ([facility]) Body weight 2904 [oz_av] 2904 [oz_av] FRANCK ([facility]) Diastolic blood pressure 96 mm[Hg] 96 mm[Hg] FRANCK ([facility]) Body height 70 [in_i] 70 [in_i] FRANCK ([facility]) Body mass index (BMI) [Ratio] 26 kg/m2 26 kg/ m2 FRANCK ([facility]) Systolic blood pressure 142 mm[Hg] 142 mm[Hg] A THENA ([facility]) Body weight 2904 [oz_av] 2904 [oz_av] FRANCK ([facility]) Diastolic blood pressure 96 mm[Hg] 96 mm[Hg] FRANCK ([facility]) Body height 70 [in_i] 70 [in_i] FRANCK ([facility]) Body mass index (BMI) [Ratio] 26 kg/m2 26 kg/ m2 FRANCK ([facility]) Systolic blood pressure 142 mm[Hg] 142 mm[Hg] A THENA ([facility]) Body weight 2904 [oz_av] 2904 [oz_av] FRANCK ([facility]) Body height 71 [in_i] 71 [in_i] MEDENT ([facility] 5'11" Body weight 182.19 [lb_av] 182.19 [lb_av] MEDEN T ([facility] ) boot on left foot Systolic blood pressure 144 mm[Hg] 144 mm[Hg] M EDENT ([facility] ) Diastolic blood pressure 84 mm[Hg] 84 mm[Hg] MEDENT ([facility] ) Heart rate 79 /min 79 /min MEDENT ([facility] Body temperature 97.7 [degF] 97.7 [degF] MEDENT ([facility] Body mass index (BMI) [Ratio] 25.4 kg/m2 25.4 k g/m2 MEDENT ([facility] ) Oxygen saturation in Arterial blood by Pulse oximetry 99 % 99 % MEDENT ([facility] ) Body height 71 [in_i] 71 [in_i] MEDENT ([facility]) 5'11" Systolic blood pressure 144 mm[Hg] 144 mm[Hg] M EDENT ([facility]) Diastolic blood pressure 90 mm[Hg] 90 mm[Hg] [facility] ([facility]) Body weight 176.00 [lb_av] 176.00 [lb_av] MEDEN T ([facility]) Body mass index (BMI) [Ratio] 24.5 kg/m2 24.5 k g/m2 [facility] ([facility]) [place] body weight 172 [lb_av] 172 [lb_av] [facility] Body weight 79.834 kg 79.834 kg [facility] ([facility]) Body surface area Derived from formula 2.00 m2 2.00 m2 [facility] ([facility]) Body height 70 [in_i] 70 [in_i] FRANCK ([facility]) Diastolic blood pressure 92 mm[Hg] 92 mm[Hg] FRANCK ([facility]) Body mass index (BMI) [Ratio] 25.80 kg/m2 25.80 kg/m2 [facility] ([facility]) Systolic blood pressure 157 mm[Hg] 157 mm[Hg] A [facility] ([facility]) Body weight 2866.08 [oz_av] 2866.08 [oz_av] ATH KAMRYN ([facility]) Body height 70 [in_i] 70 [in_i] FRANCK ([facility]) Body mass index (BMI) [Ratio] 25.80 kg/m2 25.80 kg/m2 [facility] ([facility]) Systolic blood pressure 157 mm[Hg] 157 mm[Hg] A [facility] ([facility]) Body weight 2866.08 [oz_av] 2866.08 [oz_av] ATH KAMRYN ([facility]) Diastolic blood pressure 92 mm[Hg] 92 mm[Hg] FRANCK ([facility]) Diastolic blood pressure 92 mm[Hg] 92 mm[Hg] [facility] ([facility]) Body height 70 [in_i] 70 [in_i] [facility] ([facility]) Body mass index (BMI) [Ratio] 25.80 kg/m2 25.80 kg/m2 [facility] ([facility]) Systolic blood pressure 157 mm[Hg] 157 mm[Hg] [facility] Body weight 2866.08 [oz_av] 2866.08 [oz_av] ATH KAMRYN ([facility]) Diastolic blood pressure 92 mm[Hg] 92 mm[Hg] FRANCK ([facility]) Body height 70 [in_i] 70 [in_i] [facility] ([facility]) Body mass index (BMI) [Ratio] 25.80 kg/m2 25.80 kg/m2 [facility] ([facility]) Systolic blood pressure 157 mm[Hg] 157 mm[Hg] A [facility] ([facility]) Body weight 2866.08 [oz_av] 2866.08 [oz_av] ATH KAMRYN ([facility]) Diastolic blood pressure 92 mm[Hg] 92 mm[Hg] FRANCK ([facility]) Body height 70 [in_i] 70 [in_i] [facility] ([facility]) Body mass index (BMI) [Ratio] 25.80 kg/m2 25.80 kg/m2 [facility] ([facility]) Systolic blood pressure 157 mm[Hg] 157 mm[Hg] [facility] Body weight 2866.08 [oz_av] 2866.08 [oz_av] ATH KAMRYN ([facility]) Diastolic blood pressure 92 mm[Hg] 92 mm[Hg] FRANCK ([facility]) Body height 70 [in_i] 70 [in_i] [facility] ([facility]) Body mass index (BMI) [Ratio] 25.80 kg/m2 25.80 kg/m2 [facility] ([facility]) Systolic blood pressure 157 mm[Hg] 157 mm[Hg] [facility] Body weight 2866.08 [oz_av] 2866.08 [oz_av] ATH KAMRYN ([facility]) Diastolic blood pressure 92 mm[Hg] 92 mm[Hg] FRANCK ([facility]) Body height 70 [in_i] 70 [in_i] [facility]ANCK ([facility]) Body mass index (BMI) [Ratio] 25.80 kg/m2 25.80 kg/m2 [facility] ([facility]) Systolic blood pressure 157 mm[Hg] 157 mm[Hg] A THENA ([facility]) Body weight 2866.08 [oz_av] 2866.08 [oz_av] ATH KAMRYN ([facility]) Patient Treatment Plan of Care Planned Activity Planned Date Details Description Data Source (s) Metoprolol Tartrate 25 MG Oral Tablet 05/30/2021 12:00:00 AM EDT [facility] pantoprazole 40 MG Delayed Release Oral Tablet 05/21/2021 12:00:00 AM EDT [facility] atorvastatin 20 MG Oral Tablet 01/30/2021 12:00:00 AM EDT [facility] Metoprolol Tartrate 25 MG Oral Tablet 01/21/2021 12:00:00 AM EDT [facility] pantoprazole 40 MG Delayed Release Oral Tablet 12/12/2020 12:00:00 AM EDT [place] ([facility]) pantoprazole 40 MG Delayed Release Oral Tablet 12/12/2020 12:00:00 AM EDT [place] ([facility]) CONTOUR NEXT TEST test strip 11/03/2020 12:00:00 AM EDT [facility] atorvastatin 20 MG Oral Tablet 08/08/2020 12:00:00 AM EST [facility] Metoprolol Tartrate 25 MG Oral Tablet 07/17/2020 12:00:00 AM EST [facility] Sulfamethoxazole 800 MG / Trimethoprim 160 MG Oral Tab let 04/26/2020 12:00:00 AM EDT [facility] midodrine hydrochloride 10 MG Oral Tablet 01/07/2020 12:00:00 AM ED T [facility] POLYETHYLENE GLYCOL 3350 142 MG/ML Oral Solution 07/18/2019 12:00:0 0 AM EST [facility] Insulin Lispro 100 UNT/ML Injectable Solution 06/03/2018 12:00:00 A M EDT [facility] pantoprazole 40 MG Delayed Release Oral Tablet 06/03/2018 12:00:00 AM EDT [facility] pantoprazole 20 MG Delayed Release Oral Tablet [facility] 24 HR venlafaxine 37.5 MG Extended Release Oral Capsule [facility] ([facility]) Sulfamethoxazole 800 MG / Trimethoprim 160 MG Oral Tablet [facility] ([facility]) ropinirole 0.25 MG Oral Tablet [facility] ([facility]) pregabalin 75 MG Oral Capsule [facility] ([facility]) pantoprazole 20 MG Delayed Release Oral Tablet [facility] ([facility]) Acetaminophen 325 MG / Oxycodone Hydrochloride 5 MG Oral Tablet [facility] ([facility]) midodrine hydrochloride 10 MG Oral Tablet [facility] ([facility]) linezolid 600 MG Oral Tablet [facility] ([facility] gabapentin 400 MG Oral Capsule [facility] ([facility]) ferrous sulfate 325 MG Delayed Release Oral Tablet [facility] ([facility]) ferrous sulfate 325 MG Oral Tablet [facility] ([facility]) duloxetine 60 MG Delayed Release Oral Capsule [facility] ([facility]) carvedilol 12.5 MG Oral Tablet [facility] ([facility]) 24 HR venlafaxine 37.5 MG Extended Release Oral Capsule [facility] ([facility]) Sulfamethoxazole 800 MG / Trimethoprim 160 MG Oral Tablet [facility] ([facility]) ropinirole 0.25 MG Oral Tablet [facility] ([facility]) pregabalin 75 MG Oral Capsule [facility] ([facility]) pantoprazole 20 MG Delayed Release Oral Tablet [facility] ([facility]) Acetaminophen 325 MG / Oxycodone Hydrochloride 5 MG Oral Tablet [facility] ([facility]) midodrine hydrochloride 10 MG Oral Tablet [facility] ([facility]) linezolid 600 MG Oral Tablet [facility] ([facility]) gabapentin 400 MG Oral Capsule [facility] ([facility]) ferrous sulfate 325 MG Delayed Release Oral Tablet [facility] ([facility]) ferrous sulfate 325 MG Oral Tablet [facility] ([facility]) duloxetine 60 MG Delayed Release Oral Capsule [facility] ([facility]) carvedilol 12.5 MG Oral Tablet [facility] [facility]) 24 HR venlafaxine 37.5 MG Extended Release Oral Capsule [facility] ([facility]) Sulfamethoxazole 800 MG / Trimethoprim 160 MG Oral Tablet [facility] ([facility]) ropinirole 0.25 MG Oral Tablet [facility] ([facility]) pregabalin 75 MG Oral Capsule [facility] ([facility]) pantoprazole 20 MG Delayed Release Oral Tablet [facility] ([facility]) Acetaminophen 325 MG / Oxycodone Hydrochloride 5 MG Oral Tablet [facility] ([facility]) midodrine hydrochloride 10 MG Oral Tablet [facility] ([facility]) linezolid 600 MG Oral Tablet [facility] ([facility]) gabapentin 400 MG Oral Capsule [facility] ([facility]) ferrous sulfate 325 MG Delayed Release Oral Tablet [facility] ([facility]) ferrous sulfate 325 MG Oral Tablet [facility] ([facility]) duloxetine 60 MG Delayed Release Oral Capsule [facility] ([facility]) carvedilol 12.5 MG Oral Tablet [facility] ([facility]) 24 HR venlafaxine 37.5 MG Extended Release Oral Capsule [facility] ([facility]) Sulfamethoxazole 800 MG / Trimethoprim 160 MG Oral Tablet [facility] ([facility]) ropinirole 0.25 MG Oral Tablet [facility] ([facility]) pregabalin 75 MG Oral Capsule [facility] ([facility]) pantoprazole 20 MG Delayed Release Oral Tablet [facility] ([facility]) Acetaminophen 325 MG / Oxycodone Hydrochloride 5 MG Oral Tablet [facility] ([facility]) midodrine hydrochloride 10 MG Oral Tablet [facility] ([facility]) linezolid 600 MG Oral Tablet [facility] ([facility]) gabapentin 400 MG Oral Capsule [facility] ([facility]) ferrous sulfate 325 MG Delayed Release Oral Tablet [facility] ([facility]) ferrous sulfate 325 MG Oral Tablet [facility] ([facility]) duloxetine 60 MG Delayed Release Oral Capsule [facility] ([facility]) carvedilol 12.5 MG Oral Tablet [facility] ([facility]) 24 HR venlafaxine 37.5 MG Extended Release Oral Capsule [facility] ([facility]) Sulfamethoxazole 800 MG / Trimethoprim 160 MG Oral Tablet [facility] ([facility]) ropinirole 0.25 MG Oral Tablet [facility] ([facility]) pregabalin 75 MG Oral Capsule [facility] ([facility]) pantoprazole 20 MG Delayed Release Oral Tablet [facility] ([facility]) Acetaminophen 325 MG / Oxycodone Hydrochloride 5 MG Oral Tablet [facility] ([facility]) midodrine hydrochloride 10 MG Oral Tablet [facility] ([facility]) 24 HR venlafaxine 37.5 MG Extended Release Oral Capsule [facility] ([facility]) Sulfamethoxazole 800 MG / Trimethoprim 160 MG Oral Tablet [facility] ([facility]) ropinirole 0.25 MG Oral Tablet [facility] ([facility]) pregabalin 75 MG Oral Capsule [facility] ([facility]) pantoprazole 20 MG Delayed Release Oral Tablet [facility] ([facility]) Acetaminophen 325 MG / Oxycodone Hydrochloride 5 MG Oral Tablet [facility] ([facility]) midodrine hydrochloride 10 MG Oral Tablet [facility] ([facility]) linezolid 600 MG Oral Tablet [facility] ([facility]) gabapentin 400 MG Oral Capsule [facility] ([facility]) ferrous sulfate 325 MG Delayed Release Oral Tablet [facility] ([facility]) ferrous sulfate 325 MG Oral Tablet [facility] ([facility]) duloxetine 60 MG Delayed Release Oral Capsule [facility] ([facility]) carvedilol 12.5 MG Oral Tablet [facility] ([facility]) glucose blood test strip [facility] ferrous sulfate 325 MG Oral Tablet [facility] ([facility]) duloxetine 60 MG Delayed Release Oral Capsule [facility] ([facility]) carvedilol 12.5 MG Oral Tablet [facility] ([facility] linezolid 600 MG Oral Tablet [facility] ([facility]) gabapentin 400 MG Oral Capsule [facility] ([facility]) ferrous sulfate 325 MG Delayed Release Oral Tablet [facility] ([facility] ferrous sulfate 325 MG Oral Tablet [facility] ([facility]) duloxetine 60 MG Delayed Release Oral Capsule [facility] ([facility]) carvedilol 12.5 MG Oral Tablet [facility] ([facility]) linezolid 600 MG Oral Tablet [facility] ([facility]) gabapentin 400 MG Oral Capsule [facility] ([facility]) ferrous sulfate 325 MG Delayed Release Oral Tablet [facility] ([facility]) ferrous sulfate 325 MG Oral Tablet [facility] ([facility]) duloxetine 60 MG Delayed Release Oral Capsule [facility] ([facility]) carvedilol 12.5 MG Oral Tablet [facility] ([facility]) 24 HR venlafaxine 37.5 MG Extended Release Oral Capsule [facility] ([facility]) Sulfamethoxazole 800 MG / Trimethoprim 160 MG Oral Tablet [facility] ([facility]) Acetaminophen 325 MG / Oxycodone Hydrochloride 5 MG Oral Tablet [facility] ([facility]) gabapentin 400 MG Oral Capsule [facility] ([facility]) ferrous sulfate 325 MG Delayed Release Oral Tablet [facility] ([facility]) ferrous sulfate 325 MG Oral Tablet [facility] ([facility]) carvedilol 12.5 MG Oral Tablet [facility] ([facility]) 24 HR venlafaxine 37.5 MG Extended Release Oral Capsule [facility] ([facility]) Sulfamethoxazole 800 MG / Trimethoprim 160 MG Oral Tablet [facility] ([facility]) ropinirole 0.25 MG Oral Tablet [facility] ([facility]) pregabalin 75 MG Oral Capsule [facility] ([facility]) pantoprazole 40 MG Delayed Release Oral Tablet [facility] ([facility]) Acetaminophen 325 MG / Oxycodone Hydrochloride 5 MG Oral Tablet [facility] ([facility]) midodrine hydrochloride 10 MG Oral Tablet [facility] ([facility]) linezolid 600 MG Oral Tablet [facility] ([facility]) gabapentin 400 MG Oral Capsule [facility] ([facility] ferrous sulfate 325 MG Delayed Release Oral Tablet [facility] ([facility]) 24 HR venlafaxine 37.5 MG Extended Release Oral Capsule [facility] ([facility]) Sulfamethoxazole 800 MG / Trimethoprim 160 MG Oral Tablet [facility] ([facility]) pregabalin 75 MG Oral Capsule [facility] ([facility]) pantoprazole 40 MG Delayed Release Oral Tablet [facility] ([facility]) Acetaminophen 325 MG / Oxycodone Hydrochloride 5 MG Oral Tablet [facility] ([facility] midodrine hydrochloride 10 MG Oral Tablet [facility] ([facility]) carvedilol 12.5 MG Oral Tablet [facility] ([facility])
[2021-06-11] MEDS ORDERED: LR 1,000 ML IV ONE (06:30)
[2021-06-11] MEDS ORDERED: fentaNYL 100 MCG/2 ML INJECTION (J3010) IV PRN ×2 (07:01→10:05)
[2021-06-11] MEDS ORDERED: LIDOCAINE 1% MDV 20ML VIAL As Ordered ONE (07:11)
[2021-06-11] MEDS ORDERED: EPINEPHrine INJ 1 MG/ML 1ML AMP As Ordered ONE (07:12)
[2021-06-11] MEDS ORDERED: fentaNYL 100 MCG/2 ML INJECTION (J3010) As Ordered ONE (07:13)
[2021-06-11] MEDS ORDERED: propofoL 200 MG/20 ML VIAL As Ordered ONE (07:14)
[2021-06-11] MEDS ORDERED: dexameTHASONE 4 MG/ML 1ML VIAL (J1100 PER 1MG) As Ordered ONE (07:14)
[2021-06-11] MEDS ORDERED: MIDAZOLAM INJ 2MG/2ML VIAL (J2250 PER 1MG) As Ordered ONE (07:14)
[2021-06-11] MEDS ORDERED: ONDANSETRON 4MG/2ML VIAL As Ordered ONE (07:14)
[2021-06-11] MEDS ORDERED: LIDOCAINE 2% 100MG/5ML SDV (FOR ANES.) As Ordered ONE (07:14)
[2021-06-11] MEDS ORDERED: LIDOCAINE 1% MDV 20ML VIAL XX ONE ×2 (07:20→08:00)
[2021-06-11] MEDS ORDERED: EPINEPHrine INJ 1 MG/ML 1ML AMP XX ONE (07:20)
[2021-06-11] MEDS ORDERED: ROPIvacaine 0.5% 30ML INJECTION (J2795 PER 1MG) XX ONE ×2 (07:20→08:00)
[2021-06-11] MEDS ORDERED: CLINDAMYCIN 900 MG in IV 1 EA IV ONE (07:20)
[2021-06-11] MEDS ORDERED: MIDAZOLAM INJ 2MG/2ML VIAL (J2250 PER 1MG) IV PRN (07:20)
[2021-06-11] MEDS ORDERED: dexameTHASONE 10MG/1ML VIAL PRES.FREE (J1100 PER 1MG) XX ONE (07:20)
[2021-06-11] MEDS ORDERED: ACETAMINOPHEN 1000MG 100ML IV BTL (OFIRMEV) (J0131 PER 10MG) As Ordered ONE (08:25)
[2021-06-11] MEDS ORDERED: METOCLOPRAMIDE INJ 10MG/2ML VIAL (J2765 PER 1) As Ordered ONE (08:25)
[2021-06-11] MEDS ORDERED: SUGAMMADEX SODIUM 500 MG/5 ML VIAL (BRIDION) As Ordered ONE (08:25)
[2021-06-11] MEDS ORDERED: ROCURONIUM BROMIDE 50 MG/5 ML VIAL As Ordered ONE (08:26)
[2021-06-11] MEDS ORDERED: PHENYLephrine 500MCG 5ML (100MCG/ML) SYRINGE As Ordered ONE (08:52)
--- NOTE | 2021-06-11 09:51 | ROOPDOC ---
[facility] Report Of Operation Report of Operation DATE OF PROCEDURE: 06/11/21 PREPROCEDURE DIAGNOSES: Right shoulder impingement syndrome possible biceps instability. POSTPROCEDURE DIAGNOSES: Right shoulder impingement syndrome and biceps instability. PROCEDURE PERFORMED: Right shoulder arthroscopy, subacromial decompression, subpectoral biceps tenodesis. SURGEON: Dr. Daniel Cohn MD DRY SAND MOLDER: None ANESTHESIA: General anesthesia preoperative block Dr Mac. ESTIMATED BLOOD LOSS: Approximately 30 mL. COMPLICATIONS: None. REMARKS: None. FINDINGS: SLAP tear and longitudinal fraying of the biceps SPECIMENS REMOVED: Long head of biceps sent for pathology PROCEDURE NOTE: This 41-year-old man experienced mostly anterior shoulder pain. MRI was consistent with the SLAP tear. He wished to go ahead with surgery. We discussed the pros and cons risks and complications of nonoperative management versus surgery. He wished to proceed. I marked the right upper extremity. He had no further questions.. DESCRIPTION OF PROCEDURE: Patient was brought to the operating room theater. He was placed supine on the operating room table. General anesthesia was induced. 900 mg IV clindamycin was administered due to penicillin and cephalosporin allergy. Patient was transferred right lateral decubitus with the aid of the beanbag positioner axillary roll was placed SCDs used on the legs all bony prominences padded. Patient's right upper extremity prepped and draped in the usual sterile fashion with chlorhexidine-based prep solution allowing over 3 minutes drying time prior to draping. 10 pounds of traction with the arm in 45 degrees of abduction was employed. Preoperative timeout performed to confirm the site patient and surgery. I began by inserting the arthroscope into the intra-articular portion of the shoulder through a standard posterior arthroscopy portal. I performed a thorough diagnostic arthroscopy. Undersurface the rotator cuff appeared normal. Subscapularis appeared normal. I used inside-out spinal needle localization to perform an anterior accessory portal posterior to the biceps tendon through the rotator interval. Cartilage on the glenoid and humeral head was normal. Normal bare area. Normal axillary recess no loose bodies. Labrum had some slight circumferential fraying this was gently debrided. Long head of biceps had obv ious tearing at the origin as well as longitudinal tearing and high-grade fraying. I performed a intra-articular biceps tenotomy and then use shaving instrument to gently debride the superior labrum to stable margins. Arthroscope was then inserted into the subacromial space. I made an accessory lateral portal. I performed a complete bursectomy. Identified the anterolateral undersurface of the acromion. I performed a subacromial decompression for approximately 3 mm for gentle downsloping type II acromion. There is a moderate amount of bursal tissue. Minimal inflammation. No obvious rotator cuff tears with probing of the superior aspect of the rotator cuff. Scope was then withdrawn. I then turned my attention to the open part of the operation. I made a standard longitudinal approximately 1.5 inch incision centered at the proximal anterior medial aspect of the upper arm. Carried the dissection down through skin and subcutaneous tissue achieve meticulous hemostasis. Identified the pectoralis fibers and retracted these superiorly. I incised the fascia in line with skin incision and achieved dissection down to the long head of the biceps tendon. I then delivered this through the incision. I used the Arthrex biceps button kit with the fiber loop suture to do 5 throws with a Renny needle starting at the musculotendinous junction locked the sutures and then cut the suture in the middle. I then passed the suture free ends in opposite fashion through the button. I then used the spade tipped drill at the biceps groove to perform a unicortical hole. Bone dust irrigated. I also used a fiber link suture through the biceps tendon. I then passed the button into the drill hole flipped the button deliver the tendon to the bone and then used the fiber link suture to then pass 1 free end back through the tendon and secured the sutures over top using interrupted half hitches with the sutures cut short. This secured the tendon nicely to bone and solidly fixated. I thoroughly irrigated the wounds. Subcutaneous tissue closed with interrupted 2- 0 Vicryl and skin with 3-0 Monocryl. Skin cleaned with wet and dry dressing. Steri-Strips Adaptic 4 x 8 gauze abdominal pad dressing and cloth tape in place with a sling on the upper extremity. Patient taken out of traction set up drapes removed patient transferred supine woken up from the general anesthetic transferred off the operating room table and taken to postanesthetic care unit in stable condition. All sponge needle instrument counts were correct. No complications. Biceps tendon sent for pathology. Plan to the patient discharged home according to when they are comfortable and day surgery criteria. Start pendulum exercises as well as hand wrist and elbow exercises no lifting over 1 pound. Sling for approximately 2 weeks time. Prescription sent into [facility] in [place]. The patient already has follow-up planned for within 2 weeks. postoperative wound instructions were given. It was recommended to keep the wound clean and dry. Dressing changes as needed. It was reinforced with the patient that they should call us or be seen immediately for redness, drainage, or fever. Risk factors for harms from taking opioid medications discussed and assessed including but not limited to personal or family history of substance use disorder, anxiety or depression, , age 65 or older, COPD or other underlying respiratory conditions, and renal or hepatic insufficiency. Discussed with patient concerns and determined any harms they may experience or be currently experiencing such as nausea or constipation, feeling sedated or confused, breathing interruptions during sleep, or taking or craving more opioids than prescribed or difficulty controlling use (addiction). Discussed early warning signs of overdose including confusion, sedation, slurred speech, abnormal gait. DANIEL COHN MD Jun 11, 2021 09:51
[2021-06-11] MEDS ORDERED: METOCLOPRAMIDE INJ 10MG/2ML VIAL (J2765 PER 1) IV PRN (10:05)
[2021-06-11] MEDS ORDERED: ACETAMINOPHEN TAB 650MG DOSE (2X325MG) PO PRN (10:05)
[2021-06-11] MEDS ORDERED: LR 1,000 ML IV SCH ×2 (10:05)
[2021-06-11] MEDS ORDERED: ONDANSETRON 4MG/2ML VIAL IV PRN ×2 (10:05)
[2021-06-11] MEDS ORDERED: PERCOCET 5MG/325MG TAB PO PRN (10:05)
[2021-06-11] MEDS ORDERED: MORPHINE 2 MG/ML 1ML VIAL (J2270) IV PRN (10:05)
[2021-06-11] MEDS ORDERED: oxyCODONE 5MG TAB PO PRN (10:05)
[2021-06-11 11:15] VITALS: BP 119/72
--- NOTE | 2021-06-14 16:40 | ECGEPIP ---
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
== END 2021-06-11 11:20 | disposition home or self-care (01) ==
LOC: M SDC 06:05
PROVIDERS: ATTEND Orthopaedic Surgery Sports Medicine
DX: M75.41 Impingement syndrome of right shoulder (principal); M25.311 Other instability, right shoulder; I10 Essential (primary) hypertension; E10.9 Type 1 diabetes mellitus without complications; Z79.4 Long term (current) use of insulin; E78.5 Hyperlipidemia, unspecified; K21.9 Gastro-esophageal reflux disease without esophagitis; F17.220 Nicotine dependence, chewing tobacco, uncomplicated; Z88.0 Allergy status to penicillin; Z88.1 Allergy status to other antibiotic agents
CPT/HCPCS: 23430; 29823; 29826; 88304; 93005; C1713; J0131; J0171; J1100; J2250; J2370; J2405; J2765; J2795; J3010

== ENCOUNTER → 2021-07-14 | Outpatient (CLI) | payer MEDICARE, OTHER ==
[~2021-07-14] MED LIST changes: -LEVO500T3 PO; +LEVO500T4 PO
[2021-07-14 16:10] LABS: HEMATOCRIT 31.4 % (42.0-52.0); HEMOGLOBIN 10.3 g/dl (13.5-17.5); MEAN CORPUSCULAR HEMOGLOBIN 29.3 pg (27.0-33.0); MEAN CORPUSCULAR HGB CONC 32.8 g/dl (32.0-36.5); MEAN CORPUSCULAR VOLUME 89.5 fl (80.0-96.0); PLATELET COUNT, AUTOMATED 174 10^3/uL (150-450); RED BLOOD COUNT 3.51 10^6/uL (4.30-6.10); WHITE BLOOD COUNT 4.5 10^3/uL (4.0-10.0)
[2021-07-14 16:42] LABS: ALBUMIN 4.1 GM/DL (3.2-5.2); ALT/SGPT 29 U/L (12-78); BILIRUBIN,TOTAL 1.1 MG/DL (0.2-1.0); BLOOD UREA NITROGEN 23 MG/DL (7-18); CALCIUM LEVEL 9.4 MG/DL (8.5-10.1); CARBON DIOXIDE LEVEL 27 MEQ/L (21-32); CHLORIDE LEVEL 107 MEQ/L (98-107); CHOLESTEROL LEVEL 148 MG/DL (<200); CREATININE FOR GFR 1.34 MG/DL (0.70-1.30); GLOMERULAR FILTRATION RATE > 60.0 (>60); GLUCOSE, FASTING 141 MG/DL (70-100); HDL CHOLESTEROL 50 MG/DL (>40); LDL CHOLESTEROL 78 MG/DL (<100); NON-HDL-C 98 MG/DL; POTASSIUM SERUM 5.5 MEQ/L (3.5-5.1); SODIUM LEVEL 138 MEQ/L (136-145); TOTAL PROTEIN 7.6 GM/DL (6.4-8.2); TRIGLYCERIDES LEVEL 99 MG/DL (<150)
== END ==
LOC: M PLALAB 13:06
PROVIDERS: ATTEND Internal Medicine Endocrinology, Diabetes & Metabolism
DX: E10.649 Type 1 diabetes mellitus with hypoglycemia without coma (principal); E78.49 Other hyperlipidemia; N18.30 Chronic kidney disease, stage 3 unspecified; Z79.4 Long term (current) use of insulin

== ENCOUNTER → 2021-07-14 | Outpatient (CLI) | payer MEDICARE, OTHER ==
[2021-07-14 16:50] LABS: CHOLESTEROL RISK RATIO 3.02 (<5)
== END ==
LOC: M PLALAB 13:09
PROVIDERS: ATTEND Nurse Practitioner Family
DX: E78.49 Other hyperlipidemia (principal); E11.22 Type 2 diabetes mellitus with diabetic chronic kidney disease; N18.30 Chronic kidney disease, stage 3 unspecified; Z79.4 Long term (current) use of insulin

== ENCOUNTER → 2021-07-18 | Outpatient (CLI) | payer MEDICARE, OTHER ==
[~2021-07-18] MED LIST changes: +LEVO500T3 PO; -LEVO500T4 PO; +PROHANCE 279.3MG/ML 15ML VIAL ONE; +PROHANCE 279.3MG/ML 5ML VIAL ONE
--- NOTE | 2021-07-19 01:38 | REPVR ---
PROCEDURE INFORMATION: Exam: MR Lumbar Spine Without and With Contrast Exam date and time: 07/18/2021 3:51 PM Age: 41 years old Clinical indication: Low back pain; Additional info: Lumbar radiculopathy, pain RT shoulder/lt leg TECHNIQUE: Imaging protocol: Multiplanar magnetic resonance images of the lumbar spine without and with intravenous contrast. Contrast material: PROHANCE; Contrast volume: 16 ml; Contrast route: INTRAVENOUS (IV); COMPARISON: SPINE LUMBOSACRAL PARTIAL 10/22/2020 12:22 PM FINDINGS: No abnormal marrow signal. Lumbar vertebral body heights are maintained. No cord compression. No abnormal cord signal. Conus medullaris terminates at the L1 level. Paravertebral soft tissues are unremarkable. L1-L2: No significant canal or foraminal narrowing. L2-L3: No significant canal or foraminal narrowing. L3-L4: No significant canal or foraminal narrowing. L4-L5: No significant canal or foraminal narrowing. L5-S1: Broad-based disc bulge causes mild bilateral foraminal narrowing. No significant canal narrowing. IMPRESSION: No acute findings in the lumbar spine. No evidence of nerve root compression. Electronically signed by: Jacob Jorgensen On 07/19/2021 01:37:47 AM
== END ==
LOC: M PLAIMG 13:29
PROVIDERS: ATTEND Family Medicine Addiction Medicine
DX: M51.27 Other intervertebral disc displacement, lumbosacral region (principal); M54.16 Radiculopathy, lumbar region; M25.511 Pain in right shoulder; M79.605 Pain in left leg
CPT/HCPCS: 72158; A9576

== ENCOUNTER → 2021-08-27 | Outpatient (CLI) | payer MEDICARE, OTHER ==
[~2021-08-27] MED LIST changes: -LEVO500T3 PO; +LEVO500T4 PO; -PROHANCE 279.3MG/ML 15ML VIAL ONE; -PROHANCE 279.3MG/ML 5ML VIAL ONE
[2021-08-27 18:16] LABS: BLOOD UREA NITROGEN 20 MG/DL (7-18); CARBON DIOXIDE LEVEL 34 MEQ/L (21-32); CHLORIDE LEVEL 105 MEQ/L (98-107); CREATININE FOR GFR 1.19 MG/DL (0.70-1.30); GLOMERULAR FILTRATION RATE > 60.0 (>60); GLUCOSE, FASTING 134 MG/DL (70-100); PHOSPHORUS LEVEL 2.7 MG/DL (2.5-4.9); POTASSIUM SERUM 5.2 MEQ/L (3.5-5.1); SODIUM LEVEL 140 MEQ/L (136-145)
[2021-08-27 18:20] LABS: CREATININE,RANDOM URINE 58.5 MG/DL
[2021-08-27 18:28] LABS: PTH INTACT 70.1 PG/ML (18.5-88.0)
[2021-08-27 18:32] LABS: APPEARANCE, URINE CLEAR (CLEAR); BACTERIA, URINE AUTO NEGATIVE (NEGATIVE); BILIRUBIN, URINE AUTO NEGATIVE (NEGATIVE); BLOOD, URINE BLOOD NEGATIVE (NEGATIVE); COLOR, URINE YELLOW (YELLOW); GLUCOSE, URINE (UA) AUTO 3+ mg/dL (NEGATIVE); KETONE, URINE AUTO NEGATIVE (NEGATIVE); LEUKOCYTE ESTERASE, URINE AUTO NEGATIVE (NEGATIVE); NITRITE, URINE AUTO NEGATIVE (NEGATIVE); PROTEIN, URINE AUTO NEGATIVE (NEGATIVE); RBC, URINE AUTO 1 /HPF (0-3); SPECIFIC GRAVITY URINE AUTO 1.011 (1.002-1.035); SQUAMOUS EPITHELIAL CELL UR AU 0 /HPF (0-6); UROBILINOGEN, URINE AUTO 0.2 mg/dL (0.0-2.0); WBC, URINE AUTO 0 /HPF (0-3)
== END ==
LOC: M PLALAB 12:38
PROVIDERS: ATTEND Student in an Organized Health Care Education/Training Program
DX: N18.30 Chronic kidney disease, stage 3 unspecified (principal); E87.5 Hyperkalemia

== ENCOUNTER → 2021-10-17 | Outpatient (REF) | payer MEDICARE, OTHER ==
[2021-10-17 18:10] LABS: MALB URINE SIEMENS 5.1 MG/L; MAU/CREAT RATIO 4.9 MCG/MG (0.0-30.0)
== END ==
LOC: M LAB REF 16:51
PROVIDERS: ATTEND Internal Medicine Endocrinology, Diabetes & Metabolism
DX: E10.649 Type 1 diabetes mellitus with hypoglycemia without coma (principal)

== ENCOUNTER → 2021-10-22 | Outpatient (CLI) | payer MEDICARE, OTHER | LOC: M PAIN 13:00 | PROVIDERS: ATTEND Anesthesiology | DX: M51.16 Intervertebral disc disorders with radiculopathy, lumbar region (principal); G89.29 Other chronic pain; E11.42 Type 2 diabetes mellitus with diabetic polyneuropathy; M86.9 Osteomyelitis, unspecified; S98.912A Complete traumatic amputation of left foot, level unspecified, initial encounter; Z96.41 Presence of insulin pump (external) (internal); K21.9 Gastro-esophageal reflux disease without esophagitis; F17.220 Nicotine dependence, chewing tobacco, uncomplicated; Z88.0 Allergy status to penicillin; Z88.8 Allergy status to other drugs, medicaments and biological substances; Z79.891 Long term (current) use of opiate analgesic; Z79.899 Other long term (current) drug therapy; X58.XXXA Exposure to other specified factors, initial encounter; Y92.9 Unspecified place or not applicable; Y99.9 Unspecified external cause status ==

== ENCOUNTER → 2022-01-26 | Outpatient (CLI) | payer MEDICARE, OTHER | LOC: M LABSMTC 10:16 | PROVIDERS: ATTEND Anesthesiology | DX: Z01.812 Encounter for preprocedural laboratory examination (principal); Z20.822 Contact with and (suspected) exposure to COVID-19 ==

== ENCOUNTER → 2022-05-15 | Outpatient (CLI) | payer MEDICARE, OTHER ==
[~2022-05-15] MED LIST changes: -LABE100T4 PO; +LABE100T6 PO; +LEVO1TAB39 PO; -LEVO500T4 PO
== END ==
LOC: M PAIN 11:00
PROVIDERS: ATTEND Anesthesiology
DX: M54.50 Low back pain, unspecified (principal); M79.18 Myalgia, other site; G89.29 Other chronic pain; E10.40 Type 1 diabetes mellitus with diabetic neuropathy, unspecified; I10 Essential (primary) hypertension; K21.9 Gastro-esophageal reflux disease without esophagitis; F17.220 Nicotine dependence, chewing tobacco, uncomplicated; Z88.0 Allergy status to penicillin; Z88.1 Allergy status to other antibiotic agents; Z79.4 Long term (current) use of insulin; Z79.899 Other long term (current) drug therapy

== ENCOUNTER → 2022-07-13 | Outpatient (CLI) | payer MEDICARE, OTHER | LOC: M LABSMTC 10:03 | PROVIDERS: ATTEND Anesthesiology | DX: Z01.812 Encounter for preprocedural laboratory examination (principal); Z11.52 Encounter for screening for COVID-19 ==

== ENCOUNTER → 2022-07-16 | Outpatient (CLI) | payer MEDICARE, OTHER ==
[~2022-07-16] MED LIST changes: +BUPIVACAINE HCL 0.25% 10ML VIAL As Ordered ONE; +BUPIVACAINE HCL 0.25% 30ML VIAL As Ordered ONE; +NORCO, ANEXSIA 5/325MG TABLET (HYDROcodone/ACETAMINOPHEN) As Ordered ONE; +TRIAMCINOLONE ACETONIDE SUSP 40MG/ML 1ML VIAL As Ordered ONE; +diazePAM 5MG TABLET As Ordered ONE
== END ==
LOC: M PAIN 13:45
PROVIDERS: ATTEND Anesthesiology
DX: M79.18 Myalgia, other site (principal); G89.29 Other chronic pain; E11.40 Type 2 diabetes mellitus with diabetic neuropathy, unspecified; I10 Essential (primary) hypertension; K21.9 Gastro-esophageal reflux disease without esophagitis; F17.220 Nicotine dependence, chewing tobacco, uncomplicated; Z88.0 Allergy status to penicillin; Z88.1 Allergy status to other antibiotic agents; Z79.4 Long term (current) use of insulin; Z79.899 Other long term (current) drug therapy
CPT/HCPCS: 20552; J3301

== ENCOUNTER 2022-08-19 00:01 | Emergency (ER) | payer MEDICARE, OTHER ==
[~2022-08-19 00:01] MED LIST changes: -BUPIVACAINE HCL 0.25% 10ML VIAL As Ordered ONE; -BUPIVACAINE HCL 0.25% 30ML VIAL As Ordered ONE; -NORCO, ANEXSIA 5/325MG TABLET (HYDROcodone/ACETAMINOPHEN) As Ordered ONE; -TRIAMCINOLONE ACETONIDE SUSP 40MG/ML 1ML VIAL As Ordered ONE; -diazePAM 5MG TABLET As Ordered ONE
[2022-08-19] MEDS ORDERED: MIDAZOLAM INJ 2MG/2ML VIAL IV ONE ×2 (00:30)
[2022-08-19] MEDS ORDERED: MORPHINE 4 MG/ML 1ML VIAL IV ONE (00:30)
[2022-08-19] MEDS ORDERED: fentaNYL 100 MCG/2 ML INJECTION IV ONE (00:30)
[2022-08-19] MEDS ORDERED: HYDR-3713 PO (01:37)
[2022-08-19] MEDS ORDERED: NORCO, ANEXSIA 5/325MG TABLET (HYDROcodone/ACETAMINOPHEN) PO ONE (01:40)
[2022-08-19 02:45] VITALS: BP 110/55
== END 2022-08-19 03:07 | disposition home or self-care (01) ==
LOC: M ED 00:01
DX: S82.851A Displaced trimalleolar fracture of right lower leg, initial encounter for closed fracture (principal); W01.0XXA Fall on same level from slipping, tripping and stumbling without subsequent striking against object, initial encounter; I10 Essential (primary) hypertension; E11.9 Type 2 diabetes mellitus without complications; K21.9 Gastro-esophageal reflux disease without esophagitis; E78.5 Hyperlipidemia, unspecified; Z79.84 Long term (current) use of oral hypoglycemic drugs; Z88.0 Allergy status to penicillin; Z88.1 Allergy status to other antibiotic agents; Z79.82 Long term (current) use of aspirin; Z79.4 Long term (current) use of insulin; Z79.899 Other long term (current) drug therapy
CPT/HCPCS: 73610; 73620; 96374; 96375; 99285; J2250; J2270; J3010

== ENCOUNTER → 2022-08-21 | Outpatient (CLI) | payer MEDICARE, OTHER ==
[~2022-08-21] MED LIST changes: +AMBI5TAB PO; +ATOR40TA75 PO; +DILA4TAB13 PO; +DRIS50003 PO; +FLUD0.1T PO; +LEVO1TAB40 PO; +LOPR1TAB6 PO; +METR-265 PO; +MIRA1POW3 PO; +NALO8SPR NS; +OXYC-517 PO; +OXYC-673 PO; +OXYC20TA40 PO; +RISATAB3 PO
== END ==
LOC: M SOG 13:32
PROVIDERS: ATTEND Orthopaedic Surgery
DX: M25.561 Pain in right knee (principal)

== ENCOUNTER 2022-08-24 12:50 | Inpatient (IN) | payer MEDICARE, OTHER ==
[~2022-08-24] VITALS: Ht 180.3 cm; Wt 79.5 kg
[~2022-08-24 12:50] MED LIST changes: -AMBI5TAB PO; -ATOR40TA75 PO; -DILA4TAB13 PO; -DRIS50003 PO; -FLUD0.1T PO; -LEVO1TAB40 PO; -LOPR1TAB6 PO; -METR-265 PO; -MIRA1POW3 PO; -NALO8SPR NS; -OXYC-517 PO; -OXYC-673 PO; -OXYC20TA40 PO; -RISATAB3 PO
[2022-08-24] MEDS ORDERED: LR 1,000 ML IV SCH ×2 (13:00→16:45)
[2022-08-24] MEDS ORDERED: ROPIvacaine 0.5% 30ML VIAL PN ONE (13:20)
[2022-08-24] MEDS ORDERED: MIDAZOLAM INJ 2MG/2ML VIAL IV PRN (13:20)
[2022-08-24] MEDS ORDERED: ceFAZolin SOD 2 GM in IV 1 EA IV ONE (13:40)
[2022-08-24] MEDS ORDERED: LIDOCAINE 2% 100MG/5ML SDV (FOR ANES.) As Ordered ONE (13:41)
[2022-08-24] MEDS ORDERED: propofoL 200 MG/20 ML VIAL As Ordered ONE (13:41)
[2022-08-24] MEDS ORDERED: ONDANSETRON 4MG 2ML VIAL As Ordered ONE (13:42)
[2022-08-24] MEDS ORDERED: FLUD0.1T PO (13:44)
[2022-08-24] MEDS ORDERED: fentaNYL 100 MCG/2 ML INJECTION As Ordered ONE (13:44)
[2022-08-24] MEDS: fentaNYL 100 MCG/2 ML INJECTION IV PRN ×2 (14:00→14:01)
[2022-08-24] MEDS ORDERED: PHENYLephrine 500MCG 5ML (100MCG/ML) SYRINGE As Ordered ONE ×2 (14:51→15:45)
[2022-08-24] MEDS ORDERED: ACETAMINOPHEN 1000MG 100ML IV BAG As Ordered ONE (15:02)
[2022-08-24] MEDS ORDERED: VANCOMYCIN 1000MG/20ML VIAL As Ordered ONE (15:29)
[2022-08-24] MEDS ORDERED: ONDANSETRON 4MG 2ML VIAL IV PRN (16:45)
[2022-08-24] MEDS ORDERED: fentaNYL 100 MCG/2 ML INJECTION IV PRN (16:45)
[2022-08-24] MEDS ORDERED: diphenhydrAMINE 50MG/ML VIAL IV PRN (16:50)
[2022-08-24] MEDS ORDERED: GLUCAGON INJ 1MG VIAL SC PRN (17:10)
[2022-08-24] MEDS ORDERED: HEPARIN SOD (PORCINE) 5000UNITS/ML 1ML VIAL/SYRINGE SC SCH (17:10)
[2022-08-24] MEDS ORDERED: CLINDAMYCIN 600 MG in IV 1 EA IV SCH (18:00)
[2022-08-24 18:05] LABS: BASO % 0.1 % (0.0-1.0); EOS % 0.1 % (0.0-3.0); HEMATOCRIT 25.1 % (42.0-52.0); HEMOGLOBIN 8.2 g/dl (13.5-17.5); LYMPH # 0.2 10^3/uL (1.5-5.0); LYMPH % 2.3 % (24.0-44.0); MEAN CORPUSCULAR HEMOGLOBIN 29.7 pg (27.0-33.0); MEAN CORPUSCULAR HGB CONC 32.7 g/dl (32.0-36.5); MEAN CORPUSCULAR VOLUME 90.9 fl (80.0-96.0); MONO # 0.8 10^3/uL (0.0-0.8); MONO % 9.6 % (2.0-8.0); NEUTROPHILS # 5.7 10^3/uL (1.5-8.5); NEUTROPHILS % 65.7 % (36.0-66.0); PLATELET COUNT, AUTOMATED 191 10^3/uL (150-450); RED BLOOD COUNT 2.76 10^6/uL (4.30-6.10); WHITE BLOOD COUNT 8.6 10^3/uL (4.0-10.0)
[2022-08-24] MEDS ORDERED: METOPROLOL TART 25 MG TABLET PO ONE (18:05)
[2022-08-24 18:08] LABS: MAGNESIUM LEVEL 1.4 MG/DL (1.8-2.4)
[2022-08-24 18:09] LABS: ALBUMIN 2.4 G/DL (3.2-5.2); ALKALINE PHOSPHATASE 136 U/L (46-116); ALT/SGPT 19 U/L (7.0-40); AST/SGOT 16 U/L (<34); BLOOD UREA NITROGEN 29 MG/DL (9-23); CALCIUM LEVEL 8.7 MG/DL (8.5-10.1); CARBON DIOXIDE LEVEL 27 MMOL/L (20-31); CHLORIDE LEVEL 100 MMOL/L (98-107); CREATININE FOR GFR 1.46 MG/DL (0.70-1.30); GLOMERULAR FILTRATION RATE 56.6 (>60); GLUCOSE, FASTING 163 MG/DL (60-100); POTASSIUM SERUM 3.5 MMOL/L (3.5-5.1); SODIUM LEVEL 137 MMOL/L (136-145); TOTAL PROTEIN 5.7 G/DL (5.7-8.2)
[2022-08-24] MEDS ORDERED: HOME MED LIST COMPLETE! XX SCH (18:10)
[2022-08-24] MEDS: KETOROLAC 30 MG/ML 1ML VIAL IV SCH (18:20)
[2022-08-24] MEDS: oxyCODONE 5MG TAB PO PRN ×2 (18:23→20:49)
[2022-08-24] MEDS ORDERED: MEROPENEM INJ 1 GM in IV 1 EA IV ONE (18:30)
[2022-08-24 18:48] LABS: FERRITIN 374.9 NG/ML (10.5-307.3); IRON (FE) < 5 UG/DL (65-175); PERCENT SATURATION 2.6 % (19.7-50.0); TOTAL IRON BINDING CAPACITY 190 UG/DL (250-425)
[2022-08-24 18:49] LABS: VITAMIN B12 LEVEL 924 PG/ML (211-911)
[2022-08-24] MEDS: INSULIN LISPRO (NovoLOG) PER UNIT SC SCH ×2 (19:50→23:58)
[2022-08-24] MEDS: HYDROMORPHONE HCL 0.5 MG/ 0.5 ML SYRINGE IV PRN ×2 (20:49→21:02)
[2022-08-24 21:30] VITALS: BP 129/70
[2022-08-24 22:00] VITALS: BP 125/75
[2022-08-24 22:30] VITALS: BP 132/70
[2022-08-24 23:30] VITALS: BP 139/87
[2022-08-24] MEDS: DOCUSATE SODIUM 100MG CAPSULE PO SCH (23:57)
[2022-08-24] MEDS: PREGABALIN 75 MG CAP(LYRICA) PO SCH (23:57)
[2022-08-24] MEDS: NICOTINE 14 MG/24 HR TRANSDERMAL TD SCH (23:57)
[2022-08-24] MEDS: VANCOMYCIN HCL 1,000 MG, VIAL MATE ADAPTER 1 EACH in D5W 250 ML IV SCH (23:58)
[2022-08-25] VITALS (9 sets, daily range): BP systolic 127–158; BP diastolic 72–95; O2SAT 96
[2022-08-25] MEDS: MEROPENEM INJ 1 GM in IV 1 EA IV SCH ×3 (02:02→18:25)
[2022-08-25] MEDS: KETOROLAC 30 MG/ML 1ML VIAL IV SCH ×2 (02:04→05:39)
[2022-08-25] MEDS ORDERED: INSULIN LISPRO (NovoLOG) PER UNIT SC ONE ×2 (04:00→05:00)
[2022-08-25] MEDS: MORPHINE 4 MG/ML 1ML VIAL IV PRN ×3 (04:12→09:15)
[2022-08-25 05:27] LABS: HEMATOCRIT 24.8 % (42.0-52.0); HEMOGLOBIN 8.4 g/dl (13.5-17.5); MEAN CORPUSCULAR HEMOGLOBIN 30.4 pg (27.0-33.0); MEAN CORPUSCULAR HGB CONC 33.9 g/dl (32.0-36.5); MEAN CORPUSCULAR VOLUME 89.9 fl (80.0-96.0); PLATELET COUNT, AUTOMATED 233 10^3/uL (150-450); RED BLOOD COUNT 2.76 10^6/uL (4.30-6.10); WHITE BLOOD COUNT 11.9 10^3/uL (4.0-10.0)
[2022-08-25 05:52] LABS: MAGNESIUM LEVEL 1.6 MG/DL (1.8-2.4)
[2022-08-25 06:07] LABS: ALBUMIN 2.1 G/DL (3.2-5.2); ALKALINE PHOSPHATASE 140 U/L (46-116); ALT/SGPT 16 U/L (7.0-40); AST/SGOT 18 U/L (<34); BILIRUBIN,TOTAL 0.6 MG/DL (0.3-1.2); BLOOD UREA NITROGEN 33 MG/DL (9-23); CALCIUM LEVEL 8.3 MG/DL (8.5-10.1); CARBON DIOXIDE LEVEL 24 MMOL/L (20-31); CHLORIDE LEVEL 97 MMOL/L (98-107); CREATININE FOR GFR 1.29 MG/DL (0.70-1.30); GLOMERULAR FILTRATION RATE > 60.0 (>60); GLUCOSE, FASTING 380 MG/DL (60-100); POTASSIUM SERUM 3.9 MMOL/L (3.5-5.1); SODIUM LEVEL 132 MMOL/L (136-145); TOTAL PROTEIN 5.3 G/DL (5.7-8.2)
[2022-08-25] MEDS ORDERED: LEVEMIR (INSULIN DETEMIR) 1 UNITS/0.01ML SC SCH (09:00)
[2022-08-25] MEDS: NICOTINE 14 MG/24 HR TRANSDERMAL TD SCH (09:15)
[2022-08-25] MEDS: VENLAFAXINE **XR** 75MG CAPSULE PO SCH (09:15)
[2022-08-25] MEDS: PREGABALIN 75 MG CAP(LYRICA) PO SCH ×3 (09:16→21:41)
[2022-08-25] MEDS: DOCUSATE SODIUM 100MG CAPSULE PO SCH ×2 (09:16→21:41)
[2022-08-25] MEDS: HEPARIN SOD (PORCINE) 5000UNITS/ML 1ML VIAL/SYRINGE SC SCH ×2 (09:16→21:42)
[2022-08-25] MEDS: METOPROLOL TART 25 MG TABLET PO SCH ×2 (09:16→21:41)
[2022-08-25] MEDS: PANTOPRAZOLE 40MG TAB (PROTONIX) PO SCH ×2 (09:16→21:41)
[2022-08-25] MEDS: INSULIN LISPRO (NovoLOG) PER UNIT SC SCH ×4 (09:17→21:42)
[2022-08-25] MEDS: MIDODRINE 5 MG TAB PO SCH ×2 (09:28→15:40)
[2022-08-25] MEDS: VANCOMYCIN HCL 1,000 MG, VIAL MATE ADAPTER 1 EACH in D5W 250 ML IV SCH (10:46)
[2022-08-25] MEDS: FLUDROCORTISONE ACETATE 0.1 MG TAB PO SCH (10:47)
[2022-08-25] MEDS: oxyCODONE 5MG TAB PO PRN ×3 (11:55→23:07)
[2022-08-25] MEDS: MORPHINE 2 MG/ML 1ML VIAL IV PRN ×2 (14:31→21:45)
[2022-08-25] MEDS: ATORVASTATIN 20 MG TAB PO SCH (18:25)
[2022-08-26] VITALS (7 sets, daily range): BP systolic 134–175; BP diastolic 78–93; O2SAT 95
[2022-08-26] MEDS ORDERED: INSULIN LISPRO (NovoLOG) PER UNIT SC ONE ×3 (01:00→06:00)
[2022-08-26] MEDS: MEROPENEM INJ 1 GM in IV 1 EA IV SCH ×3 (02:08→18:02)
[2022-08-26] MEDS: MORPHINE 2 MG/ML 1ML VIAL IV PRN ×4 (02:10→20:46)
[2022-08-26] MEDS: oxyCODONE 5MG TAB PO PRN ×4 (03:30→17:16)
[2022-08-26] MEDS ORDERED: hydrOXYzine 50 MG TAB PO ONE (04:00)
[2022-08-26 06:23] LABS: HEMATOCRIT 24.4 % (42.0-52.0); HEMOGLOBIN 8.2 g/dl (13.5-17.5); MEAN CORPUSCULAR HEMOGLOBIN 29.7 pg (27.0-33.0); MEAN CORPUSCULAR HGB CONC 33.6 g/dl (32.0-36.5); MEAN CORPUSCULAR VOLUME 88.4 fl (80.0-96.0); PLATELET COUNT, AUTOMATED 263 10^3/uL (150-450); RED BLOOD COUNT 2.76 10^6/uL (4.30-6.10); WHITE BLOOD COUNT 7.9 10^3/uL (4.0-10.0)
[2022-08-26 06:48] LABS: BLOOD UREA NITROGEN 26 MG/DL (9-23); CALCIUM LEVEL 8.5 MG/DL (8.5-10.1); CARBON DIOXIDE LEVEL 30 MMOL/L (20-31); CHLORIDE LEVEL 99 MMOL/L (98-107); CREATININE FOR GFR 1.02 MG/DL (0.70-1.30); GLOMERULAR FILTRATION RATE > 60.0 (>60); GLUCOSE, FASTING 276 MG/DL (60-100); POTASSIUM SERUM 3.6 MMOL/L (3.5-5.1); SODIUM LEVEL 136 MMOL/L (136-145)
[2022-08-26 07:21] LABS: HEMOGLOBIN A1c 9.6 % (4.0-6.0)
[2022-08-26] MEDS: PREGABALIN 75 MG CAP(LYRICA) PO SCH ×3 (08:57→20:40)
[2022-08-26] MEDS: DOCUSATE SODIUM 100MG CAPSULE PO SCH ×2 (08:58→20:40)
[2022-08-26] MEDS: METOPROLOL TART 25 MG TABLET PO SCH ×2 (08:58→20:45)
[2022-08-26] MEDS: VENLAFAXINE **XR** 75MG CAPSULE PO SCH (08:58)
[2022-08-26] MEDS: FLUDROCORTISONE ACETATE 0.1 MG TAB PO SCH (08:58)
[2022-08-26] MEDS: PANTOPRAZOLE 40MG TAB (PROTONIX) PO SCH ×2 (08:58→20:40)
[2022-08-26] MEDS: NICOTINE 14 MG/24 HR TRANSDERMAL TD SCH (08:59)
[2022-08-26] MEDS: HEPARIN SOD (PORCINE) 5000UNITS/ML 1ML VIAL/SYRINGE SC SCH ×2 (08:59→20:43)
[2022-08-26] MEDS: INSULIN LISPRO (NovoLOG) PER UNIT SC SCH ×4 (09:00→20:44)
[2022-08-26] MEDS ORDERED: LEVEMIR (INSULIN DETEMIR) 1 UNITS/0.01ML SC SCH ×3 (09:00→21:00)
[2022-08-26] MEDS: MIDODRINE 5 MG TAB PO SCH ×2 (09:02→15:54)
[2022-08-26] MEDS ORDERED: VANCOMYCIN HCL 1,000 MG, VIAL MATE ADAPTER 1 EACH in D5W 250 ML IV SCH (16:00)
[2022-08-26] MEDS ORDERED: ACETAMINOPHEN TAB 650MG DOSE (2X325MG) PO PRN (17:50)
[2022-08-26] MEDS: ATORVASTATIN 20 MG TAB PO SCH (18:03)
[2022-08-26] MEDS: RAMELTEON 8 MG TAB (ROZEREM) PO PRN (20:47)
[2022-08-27] VITALS (9 sets, daily range): BP systolic 122–188; BP diastolic 60–97; O2SAT 93
[2022-08-27] MEDS ORDERED: VANCOMYCIN HCL 1,000 MG, VIAL MATE ADAPTER 1 EACH in NS 250 ML IV SCH ×3
[2022-08-27] MEDS: ACETAMINOPHEN TAB 650MG DOSE (2X325MG) PO PRN (01:39)
[2022-08-27] MEDS: oxyCODONE 5MG TAB PO PRN ×4 (01:40→22:50)
[2022-08-27] MEDS: MEROPENEM INJ 1 GM in IV 1 EA IV SCH ×3 (02:56→18:40)
[2022-08-27] MEDS ORDERED: IBUPROFEN 400MG TAB PO ONE (03:00)
[2022-08-27 07:21] LABS: HEMATOCRIT 24.1 % (42.0-52.0); HEMOGLOBIN 8.2 g/dl (13.5-17.5); MEAN CORPUSCULAR HEMOGLOBIN 30.6 pg (27.0-33.0); MEAN CORPUSCULAR VOLUME 89.9 fl (80.0-96.0); PLATELET COUNT, AUTOMATED 235 10^3/uL (150-450); RED BLOOD COUNT 2.68 10^6/uL (4.30-6.10); WHITE BLOOD COUNT 5.6 10^3/uL (4.0-10.0)
[2022-08-27 07:52] LABS: VANCOMYCIN LEVEL TROUGH 15.1 UG/ML (10.0-20.0)
[2022-08-27 07:53] LABS: BLOOD UREA NITROGEN 18 MG/DL (9-23); CALCIUM LEVEL 7.8 MG/DL (8.5-10.1); CARBON DIOXIDE LEVEL 32 MMOL/L (20-31); CHLORIDE LEVEL 101 MMOL/L (98-107); CREATININE FOR GFR 0.97 MG/DL (0.70-1.30); GLOMERULAR FILTRATION RATE > 60.0 (>60); GLUCOSE, FASTING 274 MG/DL (60-100); POTASSIUM SERUM 3.5 MMOL/L (3.5-5.1); SODIUM LEVEL 139 MMOL/L (136-145)
[2022-08-27] MEDS: MIDODRINE 5 MG TAB PO SCH ×2 (08:00→16:22)
[2022-08-27] MEDS: FLUDROCORTISONE ACETATE 0.1 MG TAB PO SCH (09:03)
[2022-08-27] MEDS: DOCUSATE SODIUM 100MG CAPSULE PO SCH ×2 (09:04→20:56)
[2022-08-27] MEDS: METOPROLOL TART 25 MG TABLET PO SCH ×2 (09:04→20:57)
[2022-08-27] MEDS: VENLAFAXINE **XR** 75MG CAPSULE PO SCH (09:04)
[2022-08-27] MEDS: PANTOPRAZOLE 40MG TAB (PROTONIX) PO SCH ×2 (09:04→20:59)
[2022-08-27] MEDS: NICOTINE 14 MG/24 HR TRANSDERMAL TD SCH (09:05)
[2022-08-27] MEDS: VANCOMYCIN HCL 1,000 MG, VIAL MATE ADAPTER 1 EACH in NS 250 ML IV SCH ×2 (09:05→20:55)
[2022-08-27] MEDS: PREGABALIN 75 MG CAP(LYRICA) PO SCH ×3 (09:29→20:56)
[2022-08-27] MEDS: INSULIN LISPRO (NovoLOG) PER UNIT SC SCH ×4 (10:06→21:29)
[2022-08-27] MEDS: HEPARIN SOD (PORCINE) 5000UNITS/ML 1ML VIAL/SYRINGE SC SCH ×2 (10:06→20:59)
[2022-08-27] MEDS: LEVEMIR (INSULIN DETEMIR) 1 UNITS/0.01ML SC SCH ×2 (11:00→21:28)
[2022-08-27] MEDS: MORPHINE 2 MG/ML 1ML VIAL IV PRN ×3 (11:46→20:58)
[2022-08-27] MEDS ORDERED: LIDOCAINE 1% MDV 20ML VIAL As Ordered ONE (14:38)
[2022-08-27] MEDS: SODIUM CHLORIDE 0.9% INJ 10 ML SYR IV SCH (18:00)
[2022-08-27] MEDS: ATORVASTATIN 20 MG TAB PO SCH (18:40)
[2022-08-28] VITALS (10 sets, daily range): BP systolic 98–158; BP diastolic 55–93
[2022-08-28] MEDS: MEROPENEM INJ 1 GM in IV 1 EA IV SCH ×3 (03:11→18:20)
[2022-08-28] MEDS: MORPHINE 2 MG/ML 1ML VIAL IV PRN ×2 (04:06→14:15)
[2022-08-28] MEDS: SODIUM CHLORIDE 0.9% INJ 10 ML SYR IV SCH ×2 (04:07→17:34)
[2022-08-28] MEDS ORDERED: fentaNYL 100 MCG/2 ML INJECTION As Ordered ONE (07:17)
[2022-08-28] MEDS ORDERED: propofoL 200 MG/20 ML VIAL As Ordered ONE (07:17)
[2022-08-28] MEDS ORDERED: ONDANSETRON 4MG 2ML VIAL As Ordered ONE (07:17)
[2022-08-28] MEDS ORDERED: MIDAZOLAM INJ 2MG/2ML VIAL As Ordered ONE (07:17)
[2022-08-28] MEDS ORDERED: LIDOCAINE 2% 100MG/5ML SDV (FOR ANES.) As Ordered ONE (07:17)
[2022-08-28] MEDS: INSULIN LISPRO (NovoLOG) PER UNIT SC SCH ×4 (07:30→20:21)
[2022-08-28] MEDS: MIDODRINE 5 MG TAB PO SCH (08:00)
[2022-08-28] MEDS: HEPARIN SOD (PORCINE) 5000UNITS/ML 1ML VIAL/SYRINGE SC SCH ×2 (08:18→21:06)
[2022-08-28] MEDS ORDERED: LR 1,000 ML IV SCH (09:00)
[2022-08-28] MEDS ORDERED: HYDROMORPHONE HCL 0.5 MG/ 0.5 ML SYRINGE IV PRN (09:00)
[2022-08-28] MEDS ORDERED: ONDANSETRON 4MG 2ML VIAL IV PRN (09:00)
[2022-08-28] MEDS ORDERED: oxyCODONE 5MG TAB PO PRN (09:00)
[2022-08-28] MEDS ORDERED: fentaNYL 100 MCG/2 ML INJECTION IV PRN (09:00)
[2022-08-28] MEDS: VANCOMYCIN HCL 1,000 MG, VIAL MATE ADAPTER 1 EACH in NS 250 ML IV SCH ×2 (09:43→20:47)
[2022-08-28] MEDS ORDERED: hydrALAZINE 20MG/ML 1ML VIAL IV ONE (09:50)
[2022-08-28] MEDS ORDERED: hydrALAZINE 20MG/ML 1ML VIAL As Ordered ONE (09:51)
[2022-08-28] MEDS: PANTOPRAZOLE 40MG TAB (PROTONIX) PO SCH ×2 (11:26→21:04)
[2022-08-28] MEDS: SENOKOT S TAB PO PRN (11:28)
[2022-08-28] MEDS: VENLAFAXINE **XR** 75MG CAPSULE PO SCH (11:28)
[2022-08-28] MEDS: PREGABALIN 75 MG CAP(LYRICA) PO SCH ×3 (11:28→21:04)
[2022-08-28] MEDS: FLUDROCORTISONE ACETATE 0.1 MG TAB PO SCH (11:29)
[2022-08-28] MEDS: NICOTINE 14 MG/24 HR TRANSDERMAL TD SCH (11:31)
[2022-08-28] MEDS: LEVEMIR (INSULIN DETEMIR) 1 UNITS/0.01ML SC SCH ×2 (11:32→21:06)
[2022-08-28] MEDS: METOPROLOL TART 25 MG TABLET PO SCH ×2 (11:37→21:05)
[2022-08-28] MEDS: DOCUSATE SODIUM 100MG CAPSULE PO SCH ×2 (11:40→21:05)
[2022-08-28 12:09] LABS: BASO % 0.1 % (0.0-1.0); EOS % 0.5 % (0.0-3.0); HEMATOCRIT 23.5 % (42.0-52.0); HEMOGLOBIN 7.7 g/dl (13.5-17.5); LYMPH # 0.9 10^3/uL (1.5-5.0); LYMPH % 10.8 % (24.0-44.0); MEAN CORPUSCULAR HEMOGLOBIN 29.8 pg (27.0-33.0); MEAN CORPUSCULAR HGB CONC 32.8 g/dl (32.0-36.5); MEAN CORPUSCULAR VOLUME 91.1 fl (80.0-96.0); MONO # 0.7 10^3/uL (0.0-0.8); MONO % 8.7 % (2.0-8.0); NEUTROPHILS # 6.4 10^3/uL (1.5-8.5); NEUTROPHILS % 79.2 % (36.0-66.0); PLATELET COUNT, AUTOMATED 235 10^3/uL (150-450); RED BLOOD COUNT 2.58 10^6/uL (4.30-6.10); WHITE BLOOD COUNT 8.1 10^3/uL (4.0-10.0)
[2022-08-28 12:39] LABS: MAGNESIUM LEVEL 1.1 MG/DL (1.8-2.4)
[2022-08-28 12:41] LABS: ALBUMIN 1.9 G/DL (3.2-5.2); ALKALINE PHOSPHATASE 76 U/L (46-116); ALT/SGPT 11 U/L (7.0-40); AST/SGOT 9 U/L (<34); BILIRUBIN,TOTAL 1.1 MG/DL (0.3-1.2); BLOOD UREA NITROGEN 15 MG/DL (9-23); CALCIUM LEVEL 7.8 MG/DL (8.5-10.1); CARBON DIOXIDE LEVEL 33 MMOL/L (20-31); CHLORIDE LEVEL 96 MMOL/L (98-107); CREATININE FOR GFR 1.14 MG/DL (0.70-1.30); GLOMERULAR FILTRATION RATE > 60.0 (>60); GLUCOSE, FASTING 312 MG/DL (60-100); POTASSIUM SERUM 3.3 MMOL/L (3.5-5.1); SODIUM LEVEL 137 MMOL/L (136-145); TOTAL PROTEIN 5.2 G/DL (5.7-8.2)
[2022-08-28] MEDS ORDERED: MAGNESIUM OXIDE 400MG TAB (MAG-OX) PO ONE (13:00)
[2022-08-28] MEDS ORDERED: POTASSIUM CHLORIDE 10MEQ SR TABLET PO ONE (13:00)
[2022-08-28] MEDS ORDERED: MORPHINE 2 MG/ML 1ML VIAL IV PRN (14:15)
[2022-08-28] MEDS: ACETAMINOPHEN TAB 650MG DOSE (2X325MG) PO PRN ×2 (14:16→21:05)
[2022-08-28] MEDS: oxyCODONE 5MG TAB PO PRN ×2 (17:05→23:52)
[2022-08-28] MEDS: ATORVASTATIN 20 MG TAB PO SCH (17:32)
[2022-08-28] MEDS ORDERED: VANCOMYCIN HCL 750 MG, VIAL MATE ADAPTER 1 EACH in D5W 250 ML IV SCH (21:00)
[2022-08-28] MEDS ORDERED: VANCOMYCIN HCL 750 MG, VIAL MATE ADAPTER 1 EACH in NS 250 ML IV SCH (21:09)
[2022-08-28] MEDS: VANCOMYCIN HCL 750 MG, VIAL MATE ADAPTER 1 EACH in NS 250 ML IV SCH (21:15)
[2022-08-28] MEDS: SODIUM CHLORIDE 0.9% INJ 10 ML SYR IV PRN (22:55)
[2022-08-28] MEDS: RAMELTEON 8 MG TAB (ROZEREM) PO PRN (23:51)
[2022-08-29 00:50] VITALS: BP 158/85
[2022-08-29] MEDS: MEROPENEM INJ 1 GM in IV 1 EA IV SCH ×3 (02:53→18:32)
[2022-08-29] MEDS: SODIUM CHLORIDE 0.9% INJ 10 ML SYR IV PRN (03:39)
[2022-08-29 04:50] VITALS: BP 160/91
[2022-08-29] MEDS: SODIUM CHLORIDE 0.9% INJ 10 ML SYR IV SCH ×2 (06:00→19:27)
[2022-08-29 06:15] LABS: BASO % 0.2 % (0.0-1.0); EOS # 0.1 10^3/uL (0.0-0.5); EOS % 1.1 % (0.0-3.0); HEMOGLOBIN 8.1 g/dl (13.5-17.5); LYMPH # 1.2 10^3/uL (1.5-5.0); LYMPH % 18.3 % (24.0-44.0); MEAN CORPUSCULAR HEMOGLOBIN 29.5 pg (27.0-33.0); MEAN CORPUSCULAR HGB CONC 32.4 g/dl (32.0-36.5); MEAN CORPUSCULAR VOLUME 90.9 fl (80.0-96.0); MONO # 0.7 10^3/uL (0.0-0.8); MONO % 11.3 % (2.0-8.0); NEUTROPHILS # 4.3 10^3/uL (1.5-8.5); NEUTROPHILS % 68.2 % (36.0-66.0); PLATELET COUNT, AUTOMATED 293 10^3/uL (150-450); RED BLOOD COUNT 2.75 10^6/uL (4.30-6.10); WHITE BLOOD COUNT 6.4 10^3/uL (4.0-10.0)
[2022-08-29 06:44] LABS: MAGNESIUM LEVEL 1.4 MG/DL (1.8-2.4)
[2022-08-29 06:55] LABS: ALKALINE PHOSPHATASE 75 U/L (46-116); ALT/SGPT 10 U/L (7.0-40); AST/SGOT 12 U/L (<34); BILIRUBIN,TOTAL 0.8 MG/DL (0.3-1.2); BLOOD UREA NITROGEN 14 MG/DL (9-23); CALCIUM LEVEL 7.8 MG/DL (8.5-10.1); CARBON DIOXIDE LEVEL 35 MMOL/L (20-31); CHLORIDE LEVEL 97 MMOL/L (98-107); CREATININE FOR GFR 1.08 MG/DL (0.70-1.30); GLOMERULAR FILTRATION RATE > 60.0 (>60); GLUCOSE, FASTING 139 MG/DL (60-100); POTASSIUM SERUM 3.3 MMOL/L (3.5-5.1); SODIUM LEVEL 138 MMOL/L (136-145); TOTAL PROTEIN 5.7 G/DL (5.7-8.2)
[2022-08-29] MEDS ORDERED: POTASSIUM CHLORIDE 10MEQ SR TABLET PO ONE (07:45)
[2022-08-29] MEDS ORDERED: MAGNESIUM OXIDE 400MG TAB (MAG-OX) PO ONE (07:45)
[2022-08-29 07:50] VITALS: BP 165/95
[2022-08-29] MEDS: oxyCODONE 5MG TAB PO PRN ×3 (07:57→19:40)
[2022-08-29] MEDS: INSULIN LISPRO (NovoLOG) PER UNIT SC SCH ×4 (07:58→20:46)
[2022-08-29] MEDS: FLUDROCORTISONE ACETATE 0.1 MG TAB PO SCH (09:00)
[2022-08-29] MEDS: DOCUSATE SODIUM 100MG CAPSULE PO SCH ×2 (10:18→20:55)
[2022-08-29] MEDS: PREGABALIN 75 MG CAP(LYRICA) PO SCH ×3 (10:20→20:56)
[2022-08-29] MEDS: METOPROLOL TART 25 MG TABLET PO SCH ×2 (10:21→20:56)
[2022-08-29] MEDS: VENLAFAXINE **XR** 75MG CAPSULE PO SCH (10:22)
[2022-08-29] MEDS: VANCOMYCIN HCL 750 MG, VIAL MATE ADAPTER 1 EACH in NS 250 ML IV SCH ×2 (10:25→21:04)
[2022-08-29] MEDS: NICOTINE 14 MG/24 HR TRANSDERMAL TD SCH (10:26)
[2022-08-29] MEDS: LEVEMIR (INSULIN DETEMIR) 1 UNITS/0.01ML SC SCH ×2 (10:28→21:00)
[2022-08-29] MEDS: HEPARIN SOD (PORCINE) 5000UNITS/ML 1ML VIAL/SYRINGE SC SCH ×2 (10:29→20:57)
[2022-08-29] MEDS: PANTOPRAZOLE 40MG TAB (PROTONIX) PO SCH ×2 (10:56→20:56)
[2022-08-29] MEDS: ACETAMINOPHEN TAB 650MG DOSE (2X325MG) PO PRN ×2 (10:58→16:53)
[2022-08-29] MEDS: SENOKOT S TAB PO PRN (10:58)
[2022-08-29 11:48] VITALS: BP 152/89
[2022-08-29 14:00] VITALS: BP 145/90
[2022-08-29] MEDS: DEXTROSE 50% 50ML SYRINGE IV PRN (16:40)
[2022-08-29] MEDS: ATORVASTATIN 20 MG TAB PO SCH (16:53)
[2022-08-29 19:39] VITALS: BP 151/89
[2022-08-30] MEDS: oxyCODONE 5MG TAB PO PRN ×4 (02:13→17:51)
[2022-08-30] MEDS: ACETAMINOPHEN TAB 650MG DOSE (2X325MG) PO PRN ×3 (02:15→16:32)
[2022-08-30] MEDS: MEROPENEM INJ 1 GM in IV 1 EA IV SCH ×3 (02:47→17:15)
[2022-08-30 06:00] VITALS: BP 147/83
[2022-08-30 06:10] LABS: BASO % 0.2 % (0.0-1.0); EOS # 0.1 10^3/uL (0.0-0.5); EOS % 0.9 % (0.0-3.0); HEMOGLOBIN 7.8 g/dl (13.5-17.5); LYMPH % 17.6 % (24.0-44.0); MEAN CORPUSCULAR HEMOGLOBIN 29.8 pg (27.0-33.0); MEAN CORPUSCULAR HGB CONC 32.5 g/dl (32.0-36.5); MEAN CORPUSCULAR VOLUME 91.6 fl (80.0-96.0); MONO # 0.5 10^3/uL (0.0-0.8); MONO % 8.6 % (2.0-8.0); NEUTROPHILS # 4.2 10^3/uL (1.5-8.5); PLATELET COUNT, AUTOMATED 355 10^3/uL (150-450); RED BLOOD COUNT 2.62 10^6/uL (4.30-6.10); WHITE BLOOD COUNT 5.8 10^3/uL (4.0-10.0)
[2022-08-30 06:39] LABS: MAGNESIUM LEVEL 1.4 MG/DL (1.8-2.4)
[2022-08-30 06:45] LABS: ALKALINE PHOSPHATASE 70 U/L (46-116); ALT/SGPT 11 U/L (7.0-40); AST/SGOT 16 U/L (<34); BILIRUBIN,TOTAL 0.5 MG/DL (0.3-1.2); BLOOD UREA NITROGEN 10 MG/DL (9-23); CALCIUM LEVEL 7.8 MG/DL (8.5-10.1); CARBON DIOXIDE LEVEL 34 MMOL/L (20-31); CHLORIDE LEVEL 98 MMOL/L (98-107); CREATININE FOR GFR 0.97 MG/DL (0.70-1.30); GLOMERULAR FILTRATION RATE > 60.0 (>60); GLUCOSE, FASTING 152 MG/DL (60-100); POTASSIUM SERUM 4.1 MMOL/L (3.5-5.1); SODIUM LEVEL 139 MMOL/L (136-145); TOTAL PROTEIN 5.9 G/DL (5.7-8.2)
[2022-08-30] MEDS ORDERED: MAGNESIUM OXIDE 400MG TAB (MAG-OX) PO ONE (07:50)
[2022-08-30] MEDS: VANCOMYCIN HCL 1,000 MG, VIAL MATE ADAPTER 1 EACH in NS 250 ML IV SCH ×2 (08:51→20:46)
[2022-08-30] MEDS: DOCUSATE SODIUM 100MG CAPSULE PO SCH ×2 (08:51→22:08)
[2022-08-30] MEDS: PREGABALIN 75 MG CAP(LYRICA) PO SCH ×3 (08:52→22:09)
[2022-08-30] MEDS: VENLAFAXINE **XR** 75MG CAPSULE PO SCH (08:52)
[2022-08-30] MEDS: FLUDROCORTISONE ACETATE 0.1 MG TAB PO SCH (08:52)
[2022-08-30] MEDS: PANTOPRAZOLE 40MG TAB (PROTONIX) PO SCH ×2 (08:52→22:08)
[2022-08-30] MEDS: LEVEMIR (INSULIN DETEMIR) 1 UNITS/0.01ML SC SCH ×2 (08:54→22:10)
[2022-08-30] MEDS: INSULIN LISPRO (NovoLOG) PER UNIT SC SCH ×4 (08:54→21:00)
[2022-08-30] MEDS: METOPROLOL TART 25 MG TABLET PO SCH ×2 (08:54→22:08)
[2022-08-30] MEDS: HEPARIN SOD (PORCINE) 5000UNITS/ML 1ML VIAL/SYRINGE SC SCH ×2 (08:55→22:09)
[2022-08-30] MEDS: NICOTINE 14 MG/24 HR TRANSDERMAL TD SCH (08:55)
[2022-08-30] MEDS: SODIUM CHLORIDE 0.9% INJ 10 ML SYR IV SCH ×2 (09:29→17:15)
[2022-08-30] MEDS: GLUCOSE 4GM CHEW TABLET PO PRN (10:32)
[2022-08-30 14:00] VITALS: BP 141/88
[2022-08-30] MEDS: ATORVASTATIN 20 MG TAB PO SCH (17:15)
[2022-08-30 21:28] VITALS: BP 138/84
[2022-08-30] MEDS: RAMELTEON 8 MG TAB (ROZEREM) PO PRN (22:08)
[2022-08-30] MEDS: MORPHINE 2 MG/ML 1ML VIAL IV PRN (22:11)
[2022-08-31] MEDS: oxyCODONE 5MG TAB PO PRN ×4 (01:05→16:21)
[2022-08-31] MEDS: MEROPENEM INJ 1 GM in IV 1 EA IV SCH ×3 (03:44→23:03)
[2022-08-31 05:45] VITALS: BP 167/111
[2022-08-31 05:57] VITALS: BP 160/90
[2022-08-31] MEDS: ACETAMINOPHEN TAB 650MG DOSE (2X325MG) PO PRN ×4 (06:09→22:00)
[2022-08-31] MEDS: SODIUM CHLORIDE 0.9% INJ 10 ML SYR IV SCH ×2 (06:11→17:06)
[2022-08-31 06:30] LABS: BASO % 0.3 % (0.0-1.0); EOS # 0.1 10^3/uL (0.0-0.5); EOS % 0.7 % (0.0-3.0); HEMATOCRIT 23.8 % (42.0-52.0); HEMOGLOBIN 7.7 g/dl (13.5-17.5); LYMPH # 1.1 10^3/uL (1.5-5.0); LYMPH % 14.6 % (24.0-44.0); MEAN CORPUSCULAR HEMOGLOBIN 29.8 pg (27.0-33.0); MEAN CORPUSCULAR HGB CONC 32.4 g/dl (32.0-36.5); MEAN CORPUSCULAR VOLUME 92.2 fl (80.0-96.0); MONO # 0.6 10^3/uL (0.0-0.8); MONO % 7.7 % (2.0-8.0); NEUTROPHILS # 5.7 10^3/uL (1.5-8.5); NEUTROPHILS % 76.3 % (36.0-66.0); PLATELET COUNT, AUTOMATED 449 10^3/uL (150-450); RED BLOOD COUNT 2.58 10^6/uL (4.30-6.10); WHITE BLOOD COUNT 7.4 10^3/uL (4.0-10.0)
[2022-08-31 06:55] LABS: MAGNESIUM LEVEL 1.5 MG/DL (1.8-2.4)
[2022-08-31 07:01] LABS: ALKALINE PHOSPHATASE 69 U/L (46-116); ALT/SGPT 11 U/L (7.0-40); AST/SGOT 11 U/L (<34); BILIRUBIN,TOTAL 0.6 MG/DL (0.3-1.2); BLOOD UREA NITROGEN 10 MG/DL (9-23); CARBON DIOXIDE LEVEL 34 MMOL/L (20-31); CHLORIDE LEVEL 102 MMOL/L (98-107); CREATININE FOR GFR 0.96 MG/DL (0.70-1.30); GLOMERULAR FILTRATION RATE > 60.0 (>60); GLUCOSE, FASTING 92 MG/DL (60-100); POTASSIUM SERUM 4.1 MMOL/L (3.5-5.1); SODIUM LEVEL 142 MMOL/L (136-145); TOTAL PROTEIN 5.6 G/DL (5.7-8.2)
[2022-08-31] MEDS: INSULIN LISPRO (NovoLOG) PER UNIT SC SCH ×4 (07:30→21:00)
[2022-08-31] MEDS: HEPARIN SOD (PORCINE) 5000UNITS/ML 1ML VIAL/SYRINGE SC SCH ×2 (08:42→21:57)
[2022-08-31] MEDS: FLUDROCORTISONE ACETATE 0.1 MG TAB PO SCH (08:42)
[2022-08-31] MEDS: DOCUSATE SODIUM 100MG CAPSULE PO SCH ×2 (08:42→21:59)
[2022-08-31] MEDS: PREGABALIN 75 MG CAP(LYRICA) PO SCH ×3 (08:42→21:59)
[2022-08-31] MEDS: VANCOMYCIN HCL 1,000 MG, VIAL MATE ADAPTER 1 EACH in NS 250 ML IV SCH ×2 (08:42→20:48)
[2022-08-31] MEDS: VENLAFAXINE **XR** 75MG CAPSULE PO SCH (08:42)
[2022-08-31] MEDS: PANTOPRAZOLE 40MG TAB (PROTONIX) PO SCH ×2 (08:42→21:59)
[2022-08-31] MEDS: LEVEMIR (INSULIN DETEMIR) 1 UNITS/0.01ML SC SCH ×2 (08:43→21:59)
[2022-08-31] MEDS: NICOTINE 14 MG/24 HR TRANSDERMAL TD SCH (08:43)
[2022-08-31] MEDS: METOPROLOL TART 25 MG TABLET PO SCH ×2 (08:45→22:01)
[2022-08-31] MEDS ORDERED: LevoFLOXacin 750 MG TABLET PO SCH (10:45)
[2022-08-31 14:00] VITALS: BP 125/77
[2022-08-31] MEDS: GLUCOSE 4GM CHEW TABLET PO PRN (14:10)
[2022-08-31] MEDS: ATORVASTATIN 20 MG TAB PO SCH (17:06)
[2022-08-31 20:00] VITALS: BP 150/91
[2022-08-31] MEDS: MORPHINE 2 MG/ML 1ML VIAL IV PRN (21:58)
[2022-08-31] MEDS: RAMELTEON 8 MG TAB (ROZEREM) PO PRN (21:59)
[2022-08-31] MEDS: SODIUM CHLORIDE 0.9% INJ 10 ML SYR IV PRN (23:04)
[2022-09-01] VITALS (8 sets, daily range): BP systolic 133–145; BP diastolic 77–86
[2022-09-01] MEDS: oxyCODONE 5MG TAB PO PRN ×4 (00:03→20:35)
[2022-09-01] MEDS: SODIUM CHLORIDE 0.9% INJ 10 ML SYR IV SCH ×2 (05:04→17:21)
[2022-09-01 07:05] LABS: BASO % 0.3 % (0.0-1.0); EOS % 0.3 % (0.0-3.0); HEMATOCRIT 23.7 % (42.0-52.0); HEMOGLOBIN 7.5 g/dl (13.5-17.5); LYMPH % 17.6 % (24.0-44.0); MEAN CORPUSCULAR HEMOGLOBIN 29.5 pg (27.0-33.0); MEAN CORPUSCULAR HGB CONC 31.6 g/dl (32.0-36.5); MEAN CORPUSCULAR VOLUME 93.3 fl (80.0-96.0); MONO # 0.6 10^3/uL (0.0-0.8); MONO % 9.9 % (2.0-8.0); NEUTROPHILS # 4.1 10^3/uL (1.5-8.5); NEUTROPHILS % 71.6 % (36.0-66.0); PLATELET COUNT, AUTOMATED 508 10^3/uL (150-450); RED BLOOD COUNT 2.54 10^6/uL (4.30-6.10); WHITE BLOOD COUNT 5.7 10^3/uL (4.0-10.0)
[2022-09-01 07:56] LABS: MAGNESIUM LEVEL 1.7 MG/DL (1.8-2.4)
[2022-09-01 08:01] LABS: ALKALINE PHOSPHATASE 73 U/L (46-116); ALT/SGPT 9 U/L (7.0-40); AST/SGOT 11 U/L (<34); BILIRUBIN,TOTAL 0.7 MG/DL (0.3-1.2); BLOOD UREA NITROGEN 10 MG/DL (9-23); CALCIUM LEVEL 8.3 MG/DL (8.5-10.1); CARBON DIOXIDE LEVEL 33 MMOL/L (20-31); CHLORIDE LEVEL 100 MMOL/L (98-107); CREATININE FOR GFR 0.94 MG/DL (0.70-1.30); GLOMERULAR FILTRATION RATE > 60.0 (>60); GLUCOSE, FASTING 149 MG/DL (60-100); POTASSIUM SERUM 4.2 MMOL/L (3.5-5.1); SODIUM LEVEL 139 MMOL/L (136-145)
[2022-09-01 08:16] LABS: ERYTHROCYTE SEDIMENTATION RATE 77 mm/hr (0-15)
[2022-09-01] MEDS: LEVEMIR (INSULIN DETEMIR) 1 UNITS/0.01ML SC SCH ×2 (08:52→20:34)
[2022-09-01] MEDS: HEPARIN SOD (PORCINE) 5000UNITS/ML 1ML VIAL/SYRINGE SC SCH ×2 (08:53→20:20)
[2022-09-01] MEDS: VANCOMYCIN HCL 1,000 MG, VIAL MATE ADAPTER 1 EACH in NS 250 ML IV SCH ×2 (08:53→20:19)
[2022-09-01] MEDS: INSULIN LISPRO (NovoLOG) PER UNIT SC SCH ×4 (08:53→20:26)
[2022-09-01] MEDS: DOCUSATE SODIUM 100MG CAPSULE PO SCH ×2 (08:54→20:19)
[2022-09-01] MEDS: VENLAFAXINE **XR** 75MG CAPSULE PO SCH (08:54)
[2022-09-01] MEDS: PREGABALIN 75 MG CAP(LYRICA) PO SCH ×3 (08:54→20:19)
[2022-09-01] MEDS: NICOTINE 14 MG/24 HR TRANSDERMAL TD SCH (08:54)
[2022-09-01] MEDS: PANTOPRAZOLE 40MG TAB (PROTONIX) PO SCH ×2 (08:54→20:19)
[2022-09-01] MEDS: FLUDROCORTISONE ACETATE 0.1 MG TAB PO SCH (08:54)
[2022-09-01] MEDS: METOPROLOL TART 25 MG TABLET PO SCH ×2 (08:55→20:26)
[2022-09-01] MEDS ORDERED: KETOROLAC 30 MG/ML 1ML VIAL IV ONE ×2 (09:25→17:35)
[2022-09-01 09:53] LABS: HEMATOCRIT 24.1 % (42.0-52.0); HEMOGLOBIN 7.7 g/dl (13.5-17.5)
[2022-09-01] MEDS: MEROPENEM INJ 1 GM in IV 1 EA IV SCH ×2 (10:20→17:48)
[2022-09-01] MEDS: ATORVASTATIN 20 MG TAB PO SCH (17:20)
[2022-09-01] MEDS: ACETAMINOPHEN TAB 650MG DOSE (2X325MG) PO PRN (17:20)
[2022-09-01] MEDS ORDERED: HYDROMORPHONE HCL 0.5 MG/ 0.5 ML SYRINGE IV ONE (17:35)
[2022-09-01] MEDS ORDERED: MORPHINE 2 MG/ML 1ML VIAL IV ONE (22:05)
[2022-09-01] MEDS: SODIUM CHLORIDE 0.9% INJ 10 ML SYR IV PRN (22:46)
[2022-09-02] MEDS: RAMELTEON 8 MG TAB (ROZEREM) PO PRN (00:23)
[2022-09-02] MEDS: ACETAMINOPHEN TAB 650MG DOSE (2X325MG) PO PRN ×3 (00:23→11:09)
[2022-09-02] MEDS: MEROPENEM INJ 1 GM in IV 1 EA IV SCH ×4 (00:23→23:35)
[2022-09-02] MEDS: SODIUM CHLORIDE 0.9% INJ 10 ML SYR IV PRN ×3 (00:24→22:47)
[2022-09-02] MEDS: oxyCODONE 5MG TAB PO PRN ×4 (01:34→21:07)
[2022-09-02] MEDS: SODIUM CHLORIDE 0.9% INJ 10 ML SYR IV SCH ×2 (05:00→17:39)
[2022-09-02 05:01] VITALS: BP 137/83
[2022-09-02 06:08] LABS: BASO % 0.4 % (0.0-1.0); EOS % 0.4 % (0.0-3.0); HEMATOCRIT 23.7 % (42.0-52.0); HEMOGLOBIN 7.6 g/dl (13.5-17.5); LYMPH # 1.2 10^3/uL (1.5-5.0); LYMPH % 21.5 % (24.0-44.0); MEAN CORPUSCULAR HEMOGLOBIN 29.5 pg (27.0-33.0); MEAN CORPUSCULAR HGB CONC 32.1 g/dl (32.0-36.5); MEAN CORPUSCULAR VOLUME 91.9 fl (80.0-96.0); MONO # 0.6 10^3/uL (0.0-0.8); MONO % 11.1 % (2.0-8.0); NEUTROPHILS # 3.6 10^3/uL (1.5-8.5); NEUTROPHILS % 66.2 % (36.0-66.0); PLATELET COUNT, AUTOMATED 514 10^3/uL (150-450); RED BLOOD COUNT 2.58 10^6/uL (4.30-6.10); WHITE BLOOD COUNT 5.4 10^3/uL (4.0-10.0)
[2022-09-02 06:32] LABS: MAGNESIUM LEVEL 1.8 MG/DL (1.8-2.4)
[2022-09-02 06:34] LABS: ALKALINE PHOSPHATASE 68 U/L (46-116); ALT/SGPT 9 U/L (7.0-40); AST/SGOT 12 U/L (<34); BILIRUBIN,TOTAL 0.6 MG/DL (0.3-1.2); BLOOD UREA NITROGEN 12 MG/DL (9-23); CARBON DIOXIDE LEVEL 32 MMOL/L (20-31); CHLORIDE LEVEL 101 MMOL/L (98-107); CREATININE FOR GFR 1.07 MG/DL (0.70-1.30); GLOMERULAR FILTRATION RATE > 60.0 (>60); GLUCOSE, FASTING 73 MG/DL (60-100); SODIUM LEVEL 140 MMOL/L (136-145); TOTAL PROTEIN 5.9 G/DL (5.7-8.2)
[2022-09-02] MEDS: INSULIN LISPRO (NovoLOG) PER UNIT SC SCH ×4 (07:30→21:06)
[2022-09-02] MEDS: VANCOMYCIN HCL 1,000 MG, VIAL MATE ADAPTER 1 EACH in NS 250 ML IV SCH (08:24)
[2022-09-02] MEDS: HEPARIN SOD (PORCINE) 5000UNITS/ML 1ML VIAL/SYRINGE SC SCH ×2 (08:25→21:05)
[2022-09-02] MEDS: FLUDROCORTISONE ACETATE 0.1 MG TAB PO SCH (08:26)
[2022-09-02] MEDS: NICOTINE 14 MG/24 HR TRANSDERMAL TD SCH (08:26)
[2022-09-02] MEDS: VENLAFAXINE **XR** 75MG CAPSULE PO SCH (08:27)
[2022-09-02] MEDS: PREGABALIN 75 MG CAP(LYRICA) PO SCH ×3 (08:27→21:05)
[2022-09-02] MEDS: LEVEMIR (INSULIN DETEMIR) 1 UNITS/0.01ML SC SCH ×2 (08:28→21:06)
[2022-09-02] MEDS: DOCUSATE SODIUM 100MG CAPSULE PO SCH ×2 (08:28→21:04)
[2022-09-02] MEDS: PANTOPRAZOLE 40MG TAB (PROTONIX) PO SCH ×2 (08:28→21:04)
[2022-09-02] MEDS: METOPROLOL TART 25 MG TABLET PO SCH ×2 (08:29→21:04)
[2022-09-02 09:26] LABS: VANCOMYCIN LEVEL TROUGH 20.9 UG/ML (10.0-20.0)
[2022-09-02] MEDS ORDERED: HYDROMORPHONE HCL 0.5 MG/ 0.5 ML SYRINGE IV ONE (11:00)
[2022-09-02 14:00] VITALS: BP 136/79
[2022-09-02 14:06] VITALS: BP 136/79
[2022-09-02 14:25] VITALS: BP_SYST 136; BP_SYST 154; BP_DIAS 79; BP_DIAS 96
[2022-09-02 16:29] VITALS: BP 156/96
[2022-09-02 17:26] LABS: HEMATOCRIT 27.1 % (42.0-52.0); HEMOGLOBIN 8.7 g/dl (13.5-17.5)
[2022-09-02] MEDS: ATORVASTATIN 20 MG TAB PO SCH (17:39)
[2022-09-02] MEDS: VANCOMYCIN HCL 750 MG, VIAL MATE ADAPTER 1 EACH in D5W 250 ML IV SCH (21:03)
[2022-09-02 22:00] VITALS: BP 155/94
[2022-09-03] MEDS: SODIUM CHLORIDE 0.9% INJ 10 ML SYR IV PRN ×2 (00:30→12:55)
[2022-09-03] MEDS: RAMELTEON 8 MG TAB (ROZEREM) PO PRN (00:33)
[2022-09-03] MEDS: oxyCODONE 5MG TAB PO PRN ×3 (03:47→21:30)
[2022-09-03] MEDS: SODIUM CHLORIDE 0.9% INJ 10 ML SYR IV SCH ×2 (05:14→17:05)
[2022-09-03 06:00] VITALS: BP 142/84
[2022-09-03] MEDS: INSULIN LISPRO (NovoLOG) PER UNIT SC SCH ×4 (07:30→21:23)
[2022-09-03] MEDS ORDERED: KETOROLAC 30 MG/ML 1ML VIAL IV ONE (07:55)
[2022-09-03] MEDS ORDERED: HYDROMORPHONE HCL 0.5 MG/ 0.5 ML SYRINGE IV ONE (07:55)
[2022-09-03] MEDS: MEROPENEM INJ 1 GM in IV 1 EA IV SCH ×3 (08:25→23:28)
[2022-09-03] MEDS: NICOTINE 14 MG/24 HR TRANSDERMAL TD SCH (08:26)
[2022-09-03] MEDS: FLUDROCORTISONE ACETATE 0.1 MG TAB PO SCH (08:27)
[2022-09-03] MEDS: DOCUSATE SODIUM 100MG CAPSULE PO SCH ×2 (08:27→21:24)
[2022-09-03] MEDS: HEPARIN SOD (PORCINE) 5000UNITS/ML 1ML VIAL/SYRINGE SC SCH (08:27)
[2022-09-03] MEDS: PREGABALIN 75 MG CAP(LYRICA) PO SCH ×3 (08:28→21:24)
[2022-09-03] MEDS: METOPROLOL TART 25 MG TABLET PO SCH ×2 (08:29→21:27)
[2022-09-03] MEDS: PANTOPRAZOLE 40MG TAB (PROTONIX) PO SCH ×2 (08:29→21:24)
[2022-09-03] MEDS: VENLAFAXINE **XR** 75MG CAPSULE PO SCH (08:29)
[2022-09-03] MEDS: LEVEMIR (INSULIN DETEMIR) 1 UNITS/0.01ML SC SCH (08:30)
[2022-09-03 08:47] LABS: BASO # 0.1 10^3/uL (0.0-0.2); BASO % 0.8 % (0.0-1.0); EOS % 0.5 % (0.0-3.0); HEMATOCRIT 27.8 % (42.0-52.0); LYMPH # 1.4 10^3/uL (1.5-5.0); LYMPH % 23.5 % (24.0-44.0); MEAN CORPUSCULAR HEMOGLOBIN 29.7 pg (27.0-33.0); MEAN CORPUSCULAR HGB CONC 32.4 g/dl (32.0-36.5); MEAN CORPUSCULAR VOLUME 91.7 fl (80.0-96.0); MONO # 0.7 10^3/uL (0.0-0.8); MONO % 12.5 % (2.0-8.0); NEUTROPHILS # 3.7 10^3/uL (1.5-8.5); NEUTROPHILS % 62.4 % (36.0-66.0); PLATELET COUNT, AUTOMATED 632 10^3/uL (150-450); RED BLOOD COUNT 3.03 10^6/uL (4.30-6.10); WHITE BLOOD COUNT 5.9 10^3/uL (4.0-10.0)
[2022-09-03 09:26] LABS: MAGNESIUM LEVEL 1.9 MG/DL (1.8-2.4)
[2022-09-03 09:27] LABS: VANCOMYCIN LEVEL TROUGH 15.8 UG/ML (10.0-20.0)
[2022-09-03 09:35] LABS: ALBUMIN 2.3 G/DL (3.2-5.2); ALKALINE PHOSPHATASE 75 U/L (46-116); ALT/SGPT 11 U/L (7.0-40); AST/SGOT 13 U/L (<34); BILIRUBIN,TOTAL 1.2 MG/DL (0.3-1.2); BLOOD UREA NITROGEN 12 MG/DL (9-23); CALCIUM LEVEL 8.7 MG/DL (8.5-10.1); CARBON DIOXIDE LEVEL 33 MMOL/L (20-31); CHLORIDE LEVEL 99 MMOL/L (98-107); CREATININE FOR GFR 1.01 MG/DL (0.70-1.30); GLOMERULAR FILTRATION RATE > 60.0 (>60); GLUCOSE, FASTING 109 MG/DL (60-100); POTASSIUM SERUM 4.4 MMOL/L (3.5-5.1); SODIUM LEVEL 139 MMOL/L (136-145); TOTAL PROTEIN 6.5 G/DL (5.7-8.2)
[2022-09-03] MEDS: VANCOMYCIN HCL 750 MG, VIAL MATE ADAPTER 1 EACH in D5W 250 ML IV SCH ×2 (09:37→21:31)
[2022-09-03] MEDS ORDERED: INSULIN LISPRO (NovoLOG) PER UNIT SC SCH (12:25)
[2022-09-03] MEDS ORDERED: INSULIN LISPRO (NovoLOG) PER UNIT SC STA (12:28)
[2022-09-03] MEDS ORDERED: INSULIN LISPRO (NovoLOG) PER UNIT SC ONE (13:30)
[2022-09-03 14:00] VITALS: BP 142/81
[2022-09-03 16:41] LABS: BLOOD UREA NITROGEN 12 MG/DL (9-23); CALCIUM LEVEL 8.7 MG/DL (8.5-10.1); CARBON DIOXIDE LEVEL 33 MMOL/L (20-31); CHLORIDE LEVEL 100 MMOL/L (98-107); CREATININE FOR GFR 1.18 MG/DL (0.70-1.30); GLOMERULAR FILTRATION RATE > 60.0 (>60); GLUCOSE, FASTING 84 MG/DL (60-100); POTASSIUM SERUM 3.7 MMOL/L (3.5-5.1); SODIUM LEVEL 138 MMOL/L (136-145)
[2022-09-03] MEDS: ATORVASTATIN 20 MG TAB PO SCH (17:43)
[2022-09-03] MEDS ORDERED: LEVEMIR (INSULIN DETEMIR) 1 UNITS/0.01ML SC SCH (21:00)
[2022-09-03 22:00] VITALS: BP 142/82
[2022-09-04] MEDS: SODIUM CHLORIDE 0.9% INJ 10 ML SYR IV PRN ×3 (02:18→14:04)
[2022-09-04] MEDS: RAMELTEON 8 MG TAB (ROZEREM) PO PRN (02:30)
[2022-09-04] MEDS: oxyCODONE 5MG TAB PO PRN ×3 (02:31→23:29)
[2022-09-04] MEDS: SODIUM CHLORIDE 0.9% INJ 10 ML SYR IV SCH ×2 (05:40→17:43)
[2022-09-04 06:00] VITALS: BP 156/99
[2022-09-04 06:02] LABS: BASO # 0.1 10^3/uL (0.0-0.2); BASO % 0.8 % (0.0-1.0); EOS % 0.5 % (0.0-3.0); HEMATOCRIT 27.4 % (42.0-52.0); HEMOGLOBIN 8.6 g/dl (13.5-17.5); LYMPH % 17.2 % (24.0-44.0); MEAN CORPUSCULAR HEMOGLOBIN 28.8 pg (27.0-33.0); MEAN CORPUSCULAR HGB CONC 31.4 g/dl (32.0-36.5); MEAN CORPUSCULAR VOLUME 91.6 fl (80.0-96.0); MONO # 0.8 10^3/uL (0.0-0.8); MONO % 13.2 % (2.0-8.0); NEUTROPHILS # 4.1 10^3/uL (1.5-8.5); PLATELET COUNT, AUTOMATED 563 10^3/uL (150-450); RED BLOOD COUNT 2.99 10^6/uL (4.30-6.10)
[2022-09-04 06:11] LABS: INR 1.01; PARTIAL THROMBOPLASTIN TIME 42.8 SECONDS (24.8-34.2); PROTHROMBIN TIME 13.5 SECONDS (12.5-14.5)
[2022-09-04 06:34] LABS: BLOOD UREA NITROGEN 13 MG/DL (9-23); CALCIUM LEVEL 8.2 MG/DL (8.5-10.1); CARBON DIOXIDE LEVEL 33 MMOL/L (20-31); CHLORIDE LEVEL 97 MMOL/L (98-107); CREATININE FOR GFR 0.99 MG/DL (0.70-1.30); GLOMERULAR FILTRATION RATE > 60.0 (>60); GLUCOSE, FASTING 307 MG/DL (60-100); POTASSIUM SERUM 4.8 MMOL/L (3.5-5.1); SODIUM LEVEL 134 MMOL/L (136-145)
[2022-09-04] MEDS: MEROPENEM INJ 1 GM in IV 1 EA IV SCH ×3 (08:14→23:56)
[2022-09-04] MEDS: INSULIN LISPRO (NovoLOG) PER UNIT SC SCH ×4 (08:15→20:29)
[2022-09-04] MEDS: HEPARIN SOD (PORCINE) 5000UNITS/ML 1ML VIAL/SYRINGE SQ SCH ×2 (08:16→20:51)
[2022-09-04] MEDS: NICOTINE 14 MG/24 HR TRANSDERMAL TD SCH (08:16)
[2022-09-04] MEDS: DOCUSATE SODIUM 100MG CAPSULE PO SCH ×2 (08:17→20:52)
[2022-09-04] MEDS: FLUDROCORTISONE ACETATE 0.1 MG TAB PO SCH (08:19)
[2022-09-04] MEDS: PREGABALIN 75 MG CAP(LYRICA) PO SCH ×3 (08:19→20:51)
[2022-09-04] MEDS: VENLAFAXINE **XR** 75MG CAPSULE PO SCH (08:19)
[2022-09-04] MEDS: PANTOPRAZOLE 40MG TAB (PROTONIX) PO SCH ×2 (08:19→20:51)
[2022-09-04] MEDS: METOPROLOL TART 25 MG TABLET PO SCH ×2 (08:20→20:53)
[2022-09-04] MEDS ORDERED: LEVEMIR (INSULIN DETEMIR) 1 UNITS/0.01ML SC SCH (09:00)
[2022-09-04] MEDS: VANCOMYCIN HCL 750 MG, VIAL MATE ADAPTER 1 EACH in D5W 250 ML IV SCH ×2 (09:48→20:55)
[2022-09-04] MEDS ORDERED: KETOROLAC 30 MG/ML 1ML VIAL IV ONE ×2 (12:30→21:00)
[2022-09-04] MEDS: HYDROMORPHONE HCL 0.5 MG/ 0.5 ML SYRINGE IV SCH ×2 (12:58→16:14)
[2022-09-04] MEDS: DEXTROSE 50% 50ML SYRINGE IV PRN (13:58)
[2022-09-04 14:00] VITALS: BP 146/83
[2022-09-04] MEDS ORDERED: D5W/0.45% SODIUM CHLORIDE 1,000 ML IV SCH (14:10)
[2022-09-04] MEDS ORDERED: HYDROMORPHONE HCL 0.5 MG/ 0.5 ML SYRINGE IV ONE ×4 (15:40→21:00)
[2022-09-04] MEDS: ATORVASTATIN 20 MG TAB PO SCH (17:46)
[2022-09-04 21:00] VITALS: BP 136/86
[2022-09-05] VITALS (10 sets, daily range): BP systolic 136–172; BP diastolic 69–101
[2022-09-05] MEDS: RAMELTEON 8 MG TAB (ROZEREM) PO PRN ×2 (00:33→23:50)
[2022-09-05] MEDS: ACETAMINOPHEN TAB 650MG DOSE (2X325MG) PO PRN (02:03)
[2022-09-05] MEDS: oxyCODONE 5MG TAB PO PRN ×4 (05:51→22:37)
[2022-09-05] MEDS: SODIUM CHLORIDE 0.9% INJ 10 ML SYR IV SCH ×2 (05:53→16:42)
[2022-09-05] MEDS ORDERED: propofoL 200 MG/20 ML VIAL As Ordered ONE (07:13)
[2022-09-05] MEDS ORDERED: MIDAZOLAM INJ 2MG/2ML VIAL As Ordered ONE (07:13)
[2022-09-05] MEDS ORDERED: fentaNYL 250 MCG/5 ML INJECTION As Ordered ONE (07:13)
[2022-09-05] MEDS ORDERED: LIDOCAINE 2% 100MG/5ML SDV (FOR ANES.) As Ordered ONE (07:13)
[2022-09-05] MEDS ORDERED: ROCURONIUM BROMIDE 50MG/5ML VIAL As Ordered ONE (07:13)
[2022-09-05] MEDS: MEROPENEM INJ 1 GM in IV 1 EA IV SCH ×4 (08:00→23:53)
[2022-09-05] MEDS: INSULIN LISPRO (NovoLOG) PER UNIT SC SCH ×5 (08:14→21:40)
[2022-09-05] MEDS: DOCUSATE SODIUM 100MG CAPSULE PO SCH ×2 (08:25→21:39)
[2022-09-05] MEDS: METOPROLOL TART 25 MG TABLET PO SCH ×3 (08:25→23:52)
[2022-09-05] MEDS: PANTOPRAZOLE 40MG TAB (PROTONIX) PO SCH ×2 (08:26→21:40)
[2022-09-05] MEDS: PREGABALIN 75 MG CAP(LYRICA) PO SCH ×3 (08:26→21:39)
[2022-09-05] MEDS: HEPARIN SOD (PORCINE) 5000UNITS/ML 1ML VIAL/SYRINGE SQ SCH ×2 (08:26→21:39)
[2022-09-05] MEDS: VANCOMYCIN HCL 750 MG, VIAL MATE ADAPTER 1 EACH in D5W 250 ML IV SCH ×2 (08:26→09:18)
[2022-09-05 08:51] LABS: BASO # 0.1 10^3/uL (0.0-0.2); BASO % 1.1 % (0.0-1.0); EOS % 0.5 % (0.0-3.0); HEMATOCRIT 28.5 % (42.0-52.0); HEMOGLOBIN 8.9 g/dl (13.5-17.5); LYMPH % 22.9 % (24.0-44.0); MEAN CORPUSCULAR HEMOGLOBIN 28.9 pg (27.0-33.0); MEAN CORPUSCULAR HGB CONC 31.2 g/dl (32.0-36.5); MEAN CORPUSCULAR VOLUME 92.5 fl (80.0-96.0); MONO # 0.5 10^3/uL (0.0-0.8); MONO % 11.6 % (2.0-8.0); NEUTROPHILS # 2.8 10^3/uL (1.5-8.5); NEUTROPHILS % 63.7 % (36.0-66.0); PLATELET COUNT, AUTOMATED 566 10^3/uL (150-450); RED BLOOD COUNT 3.08 10^6/uL (4.30-6.10); WHITE BLOOD COUNT 4.4 10^3/uL (4.0-10.0)
[2022-09-05] MEDS ORDERED: LEVEMIR (INSULIN DETEMIR) 1 UNITS/0.01ML SC SCH (09:00)
[2022-09-05 09:10] LABS: VANCOMYCIN LEVEL TROUGH 13.3 UG/ML (10.0-20.0)
[2022-09-05 09:23] LABS: BLOOD UREA NITROGEN 15 MG/DL (9-23); CALCIUM LEVEL 8.7 MG/DL (8.5-10.1); CARBON DIOXIDE LEVEL 31 MMOL/L (20-31); CHLORIDE LEVEL 96 MMOL/L (98-107); CREATININE FOR GFR 0.89 MG/DL (0.70-1.30); GLOMERULAR FILTRATION RATE > 60.0 (>60); GLUCOSE, FASTING 465 MG/DL (60-100); POTASSIUM SERUM 4.2 MMOL/L (3.5-5.1); SODIUM LEVEL 134 MMOL/L (136-145)
[2022-09-05] MEDS ORDERED: ACETAMINOPHEN 1000MG 100ML IV BAG As Ordered ONE (09:38)
[2022-09-05] MEDS ORDERED: METOCLOPRAMIDE INJ 10MG/2ML VIAL As Ordered ONE (09:38)
[2022-09-05] MEDS ORDERED: ONDANSETRON 4MG 2ML VIAL As Ordered ONE (09:38)
[2022-09-05] MEDS ORDERED: KETOROLAC 60MG 2ML VIAL As Ordered ONE (09:38)
[2022-09-05] MEDS ORDERED: SUGAMMADEX SODIUM 500 MG/5 ML VIAL (BRIDION) As Ordered ONE (10:03)
[2022-09-05] MEDS ORDERED: oxyCODONE 5MG TAB PO PRN (10:55)
[2022-09-05] MEDS ORDERED: LABETALOL 100MG/20ML VIAL IV PRN (10:55)
[2022-09-05] MEDS ORDERED: MEPERIDINE 25 MG/ML 1ML VIAL IV PRN (10:55)
[2022-09-05] MEDS ORDERED: LR 1,000 ML IV SCH (10:55)
[2022-09-05] MEDS ORDERED: fentaNYL 100 MCG/2 ML INJECTION IV PRN (10:55)
[2022-09-05] MEDS ORDERED: ONDANSETRON 4MG 2ML VIAL IV PRN (10:55)
[2022-09-05] MEDS ORDERED: HYDROMORPHONE HCL 0.5 MG/ 0.5 ML SYRINGE IV PRN (10:55)
[2022-09-05] MEDS: HYDROMORPHONE HCL 0.5 MG/ 0.5 ML SYRINGE IV PRN ×8 (11:20→23:53)
[2022-09-05] MEDS ORDERED: KETOROLAC 30 MG/ML 1ML VIAL IV ONE (12:35)
[2022-09-05] MEDS ORDERED: NS 1,000 ML IV ONE (12:45)
[2022-09-05] MEDS: NICOTINE 14 MG/24 HR TRANSDERMAL TD SCH (15:05)
[2022-09-05] MEDS: FLUDROCORTISONE ACETATE 0.1 MG TAB PO SCH (15:10)
[2022-09-05] MEDS: VENLAFAXINE **XR** 75MG CAPSULE PO SCH (15:10)
[2022-09-05] MEDS: ATORVASTATIN 20 MG TAB PO SCH (16:42)
[2022-09-05] MEDS: LEVEMIR (INSULIN DETEMIR) 1 UNITS/0.01ML SC SCH (21:40)
[2022-09-06 01:15] VITALS: BP 178/96
[2022-09-06] MEDS: ACETAMINOPHEN TAB 650MG DOSE (2X325MG) PO PRN (02:25)
[2022-09-06] MEDS: HYDROMORPHONE HCL 0.5 MG/ 0.5 ML SYRINGE IV PRN ×2 (03:00→06:00)
[2022-09-06] MEDS ORDERED: KETOROLAC 30 MG/ML 1ML VIAL IV ONE (03:10)
[2022-09-06] MEDS: oxyCODONE 5MG TAB PO PRN (03:38)
[2022-09-06] MEDS ORDERED: HYDROmorphone HCL 2MG/ML 1ML VIAL IV PRN (04:15)
[2022-09-06 05:15] VITALS: BP 159/94
[2022-09-06] MEDS: METOPROLOL TART 25 MG TABLET PO SCH (05:54)
[2022-09-06] MEDS: SODIUM CHLORIDE 0.9% INJ 10 ML SYR IV SCH ×2 (05:54→18:24)
[2022-09-06 06:32] LABS: BASO % 0.5 % (0.0-1.0); EOS % 0.2 % (0.0-3.0); HEMATOCRIT 25.3 % (42.0-52.0); HEMOGLOBIN 8.3 g/dl (13.5-17.5); LYMPH # 0.8 10^3/uL (1.5-5.0); LYMPH % 8.6 % (24.0-44.0); MEAN CORPUSCULAR HEMOGLOBIN 29.5 pg (27.0-33.0); MEAN CORPUSCULAR HGB CONC 32.8 g/dl (32.0-36.5); MONO % 10.9 % (2.0-8.0); NEUTROPHILS % 79.5 % (36.0-66.0); RED BLOOD COUNT 2.81 10^6/uL (4.30-6.10); WHITE BLOOD COUNT 8.8 10^3/uL (4.0-10.0)
[2022-09-06 06:38] LABS: PLATELET COUNT, AUTOMATED 351 10^3/uL (150-450)
[2022-09-06 06:49] LABS: BLOOD UREA NITROGEN 11 MG/DL (9-23); CALCIUM LEVEL 8.4 MG/DL (8.5-10.1); CARBON DIOXIDE LEVEL 32 MMOL/L (20-31); CHLORIDE LEVEL 96 MMOL/L (98-107); CREATININE FOR GFR 0.84 MG/DL (0.70-1.30); GLOMERULAR FILTRATION RATE > 60.0 (>60); GLUCOSE, FASTING 163 MG/DL (60-100); POTASSIUM SERUM 4.1 MMOL/L (3.5-5.1); SODIUM LEVEL 134 MMOL/L (136-145)
[2022-09-06] MEDS: NICOTINE 14 MG/24 HR TRANSDERMAL TD SCH (09:00)
[2022-09-06] MEDS: MIRALAX *UNIT DOSE* 17GM PACKET PO SCH ×2 (09:00→21:00)
[2022-09-06] MEDS: LEVEMIR (INSULIN DETEMIR) 1 UNITS/0.01ML SC SCH ×2 (09:00→21:41)
[2022-09-06] MEDS ORDERED: NALOXONE INJ 0.4MG/1ML VIAL IV PRN (09:20)
[2022-09-06] MEDS ORDERED: MOM 30ML SUSPENSION UDC PO PRN (09:20)
[2022-09-06] MEDS: diazePAM 5MG TABLET PO SCH ×2 (09:34→15:35)
[2022-09-06] MEDS: SENOKOT S TAB PO SCH ×2 (09:34→21:42)
[2022-09-06] MEDS: VENLAFAXINE **XR** 75MG CAPSULE PO SCH (09:35)
[2022-09-06] MEDS: PANTOPRAZOLE 40MG TAB (PROTONIX) PO SCH ×2 (09:35→21:42)
[2022-09-06] MEDS: PREGABALIN 75 MG CAP(LYRICA) PO SCH ×3 (09:35→21:41)
[2022-09-06] MEDS: HEPARIN SOD (PORCINE) 5000UNITS/ML 1ML VIAL/SYRINGE SQ SCH ×2 (09:35→21:41)
[2022-09-06] MEDS: MEROPENEM INJ 1 GM in IV 1 EA IV SCH ×2 (09:36→15:35)
[2022-09-06] MEDS: INSULIN LISPRO (NovoLOG) PER UNIT SC SCH ×7 (09:44→21:00)
[2022-09-06 10:00] VITALS: BP 119/68
[2022-09-06] MEDS: VANCOMYCIN HCL 750 MG, VIAL MATE ADAPTER 1 EACH in D5W 250 ML IV SCH ×2 (10:28→21:28)
[2022-09-06] MEDS: HYDROmorphone 4MG TABLET PO PRN ×2 (10:29→21:50)
[2022-09-06] MEDS: METOPROLOL TART 50 MG TAB PO SCH ×2 (11:49→18:23)
[2022-09-06] MEDS ORDERED: VANCOMYCIN HCL 1,000 MG, VIAL MATE ADAPTER 1 EACH in D5W 250 ML IV ONE (12:00)
[2022-09-06 14:00] VITALS: BP 170/93
[2022-09-06] MEDS: ATORVASTATIN 20 MG TAB PO SCH (18:21)
[2022-09-06 20:50] VITALS: BP 151/90
[2022-09-07] MEDS: diazePAM 5MG TABLET PO SCH ×5 (00:01→23:51)
[2022-09-07] MEDS: MEROPENEM INJ 1 GM in IV 1 EA IV SCH ×2 (00:02→11:00)
[2022-09-07] MEDS: METOPROLOL TART 50 MG TAB PO SCH ×5 (00:02→23:52)
[2022-09-07] MEDS: RAMELTEON 8 MG TAB (ROZEREM) PO PRN (01:09)
[2022-09-07] MEDS: oxyCODONE 5MG TAB PO PRN ×3 (01:09→22:06)
[2022-09-07 05:30] VITALS: BP 132/80
[2022-09-07] MEDS: SODIUM CHLORIDE 0.9% INJ 10 ML SYR IV SCH ×2 (05:41→15:17)
[2022-09-07 06:40] LABS: BASO # 0.1 10^3/uL (0.0-0.2); BASO % 0.6 % (0.0-1.0); EOS % 0.2 % (0.0-3.0); HEMATOCRIT 26.8 % (42.0-52.0); HEMOGLOBIN 8.6 g/dl (13.5-17.5); LYMPH # 0.9 10^3/uL (1.5-5.0); LYMPH % 10.1 % (24.0-44.0); MEAN CORPUSCULAR HEMOGLOBIN 28.8 pg (27.0-33.0); MEAN CORPUSCULAR HGB CONC 32.1 g/dl (32.0-36.5); MEAN CORPUSCULAR VOLUME 89.6 fl (80.0-96.0); MONO % 11.9 % (2.0-8.0); NEUTROPHILS # 6.6 10^3/uL (1.5-8.5); NEUTROPHILS % 76.8 % (36.0-66.0); PLATELET COUNT, AUTOMATED 599 10^3/uL (150-450); RED BLOOD COUNT 2.99 10^6/uL (4.30-6.10); WHITE BLOOD COUNT 8.5 10^3/uL (4.0-10.0)
[2022-09-07 07:05] LABS: BLOOD UREA NITROGEN 13 MG/DL (9-23); CALCIUM LEVEL 8.3 MG/DL (8.5-10.1); CARBON DIOXIDE LEVEL 32 MMOL/L (20-31); CHLORIDE LEVEL 96 MMOL/L (98-107); CREATININE FOR GFR 0.93 MG/DL (0.70-1.30); GLOMERULAR FILTRATION RATE > 60.0 (>60); GLUCOSE, FASTING 347 MG/DL (60-100); POTASSIUM SERUM 4.1 MMOL/L (3.5-5.1); SODIUM LEVEL 134 MMOL/L (136-145)
[2022-09-07] MEDS: HYDROmorphone 4MG TABLET PO PRN ×4 (08:51→23:51)
[2022-09-07] MEDS: INSULIN LISPRO SQ SCH (09:00)
[2022-09-07] MEDS: MIRALAX *UNIT DOSE* 17GM PACKET PO SCH ×2 (09:00→20:17)
[2022-09-07] MEDS: NICOTINE 14 MG/24 HR TRANSDERMAL TD SCH (09:00)
[2022-09-07] MEDS: VANCOMYCIN HCL 750 MG, VIAL MATE ADAPTER 1 EACH in D5W 250 ML IV SCH ×2 (09:44→20:33)
[2022-09-07] MEDS: INSULIN LISPRO (NovoLOG) PER UNIT SC SCH ×4 (09:44→13:01)
[2022-09-07] MEDS: HEPARIN SOD (PORCINE) 5000UNITS/ML 1ML VIAL/SYRINGE SQ SCH ×2 (09:44→20:17)
[2022-09-07] MEDS: VENLAFAXINE **XR** 75MG CAPSULE PO SCH (09:46)
[2022-09-07] MEDS: SENOKOT S TAB PO SCH ×2 (09:46→20:17)
[2022-09-07] MEDS: PREGABALIN 75 MG CAP(LYRICA) PO SCH ×3 (09:46→20:17)
[2022-09-07] MEDS: LEVEMIR (INSULIN DETEMIR) 1 UNITS/0.01ML SC SCH (09:46)
[2022-09-07] MEDS: PANTOPRAZOLE 40MG TAB (PROTONIX) PO SCH ×2 (09:46→20:17)
[2022-09-07 12:00] VITALS: BP 155/95
[2022-09-07 14:00] VITALS: BP 119/76
[2022-09-07] MEDS ORDERED: DEXTROSE 50% 50ML SYRINGE IV STA (15:05)
[2022-09-07] MEDS ORDERED: DEXTROSE 50% 50ML SYRINGE IV PRN (15:05)
[2022-09-07] MEDS ORDERED: GLUCOSE 4GM CHEW TABLET PO PRN (15:05)
[2022-09-07] MEDS: HYDROmorphone HCL 2MG/ML 1ML VIAL IV PRN ×2 (15:16→20:22)
[2022-09-07] MEDS: ATORVASTATIN 20 MG TAB PO SCH (17:06)
[2022-09-07] MEDS ORDERED: INSULIN LISPRO (NovoLOG) PER UNIT SC SCH (17:30)
[2022-09-07 21:00] VITALS: BP 137/76
[2022-09-07] MEDS ORDERED: LEVEMIR (INSULIN DETEMIR) 1 UNITS/0.01ML SC SCH (21:00)
[2022-09-07] MEDS: SODIUM CHLORIDE 0.9% INJ 10 ML SYR IV PRN (21:50)
[2022-09-08] MEDS: oxyCODONE 5MG TAB PO PRN ×3 (03:04→18:35)
[2022-09-08 05:00] VITALS: BP 149/90
[2022-09-08] MEDS: HYDROmorphone HCL 2MG/ML 1ML VIAL IV PRN ×3 (05:38→20:05)
[2022-09-08] MEDS: METOPROLOL TART 50 MG TAB PO SCH ×3 (05:39→17:33)
[2022-09-08] MEDS: SODIUM CHLORIDE 0.9% INJ 10 ML SYR IV SCH ×2 (05:40→17:32)
[2022-09-08] MEDS: diazePAM 5MG TABLET PO SCH ×3 (05:42→17:39)
[2022-09-08 06:03] LABS: BASO % 0.4 % (0.0-1.0); EOS % 0.4 % (0.0-3.0); HEMATOCRIT 27.8 % (42.0-52.0); HEMOGLOBIN 8.8 g/dl (13.5-17.5); LYMPH % 13.6 % (24.0-44.0); MEAN CORPUSCULAR HEMOGLOBIN 28.5 pg (27.0-33.0); MEAN CORPUSCULAR HGB CONC 31.7 g/dl (32.0-36.5); MONO # 1.1 10^3/uL (0.0-0.8); MONO % 13.7 % (2.0-8.0); NEUTROPHILS # 5.5 10^3/uL (1.5-8.5); NEUTROPHILS % 71.6 % (36.0-66.0); RED BLOOD COUNT 3.09 10^6/uL (4.30-6.10); WHITE BLOOD COUNT 7.7 10^3/uL (4.0-10.0)
[2022-09-08 06:08] LABS: PLATELET COUNT, AUTOMATED 423 10^3/uL (150-450)
[2022-09-08 06:17] LABS: BLOOD UREA NITROGEN 9 MG/DL (9-23); CALCIUM LEVEL 8.8 MG/DL (8.5-10.1); CARBON DIOXIDE LEVEL 34 MMOL/L (20-31); CHLORIDE LEVEL 94 MMOL/L (98-107); CREATININE FOR GFR 0.86 MG/DL (0.70-1.30); GLOMERULAR FILTRATION RATE > 60.0 (>60); GLUCOSE, FASTING 173 MG/DL (60-100); POTASSIUM SERUM 4.3 MMOL/L (3.5-5.1); SODIUM LEVEL 135 MMOL/L (136-145)
[2022-09-08] MEDS: MIRALAX *UNIT DOSE* 17GM PACKET PO SCH ×2 (09:00→20:03)
[2022-09-08] MEDS: INSULIN LISPRO SQ SCH (09:00)
[2022-09-08] MEDS: NICOTINE 14 MG/24 HR TRANSDERMAL TD SCH (09:00)
[2022-09-08] MEDS: SODIUM CHLORIDE 0.9% INJ 10 ML SYR IV PRN ×2 (09:19→20:04)
[2022-09-08] MEDS: PREGABALIN 75 MG CAP(LYRICA) PO SCH ×3 (10:49→20:01)
[2022-09-08] MEDS: VENLAFAXINE **XR** 75MG CAPSULE PO SCH (10:49)
[2022-09-08] MEDS: PANTOPRAZOLE 40MG TAB (PROTONIX) PO SCH ×2 (10:49→20:01)
[2022-09-08] MEDS: SENOKOT S TAB PO SCH ×2 (10:50→20:02)
[2022-09-08] MEDS: HEPARIN SOD (PORCINE) 5000UNITS/ML 1ML VIAL/SYRINGE SQ SCH ×2 (10:52→20:02)
[2022-09-08 14:00] VITALS: BP 148/82
[2022-09-08] MEDS: ATORVASTATIN 20 MG TAB PO SCH (17:32)
[2022-09-08 21:20] VITALS: BP 130/83
[2022-09-09] MEDS: diazePAM 5MG TABLET PO SCH ×4 (00:12→18:14)
[2022-09-09] MEDS: HYDROmorphone 4MG TABLET PO PRN ×4 (00:12→20:43)
[2022-09-09] MEDS: METOPROLOL TART 50 MG TAB PO SCH ×4 (00:13→18:17)
[2022-09-09] MEDS: oxyCODONE 5MG TAB PO PRN ×4 (01:49→22:16)
[2022-09-09] MEDS: ACETAMINOPHEN TAB 650MG DOSE (2X325MG) PO PRN (02:13)
[2022-09-09] MEDS: SODIUM CHLORIDE 0.9% INJ 10 ML SYR IV PRN (02:57)
[2022-09-09] MEDS ORDERED: HYDROmorphone HCL 2MG/ML 1ML VIAL IV ONE (03:00)
[2022-09-09 03:06] LABS: BASO % 0.5 % (0.0-1.0); EOS # 0.1 10^3/uL (0.0-0.5); EOS % 1.2 % (0.0-3.0); HEMATOCRIT 24.6 % (42.0-52.0); LYMPH % 12.9 % (24.0-44.0); MEAN CORPUSCULAR HEMOGLOBIN 29.3 pg (27.0-33.0); MEAN CORPUSCULAR HGB CONC 32.5 g/dl (32.0-36.5); MEAN CORPUSCULAR VOLUME 90.1 fl (80.0-96.0); MONO % 13.8 % (2.0-8.0); NEUTROPHILS # 5.4 10^3/uL (1.5-8.5); NEUTROPHILS % 71.3 % (36.0-66.0); PLATELET COUNT, AUTOMATED 505 10^3/uL (150-450); RED BLOOD COUNT 2.73 10^6/uL (4.30-6.10); WHITE BLOOD COUNT 7.5 10^3/uL (4.0-10.0)
[2022-09-09 03:27] LABS: BLOOD UREA NITROGEN 10 MG/DL (9-23); CALCIUM LEVEL 8.1 MG/DL (8.5-10.1); CARBON DIOXIDE LEVEL 33 MMOL/L (20-31); CHLORIDE LEVEL 94 MMOL/L (98-107); GLOMERULAR FILTRATION RATE > 60.0 (>60); GLUCOSE, FASTING 219 MG/DL (60-100); POTASSIUM SERUM 4.1 MMOL/L (3.5-5.1); SODIUM LEVEL 132 MMOL/L (136-145)
[2022-09-09 06:00] VITALS: BP 142/74
[2022-09-09] MEDS: SODIUM CHLORIDE 0.9% INJ 10 ML SYR IV SCH ×2 (06:43→18:14)
[2022-09-09] MEDS: INSULIN LISPRO SQ SCH (09:00)
[2022-09-09] MEDS: MIRALAX *UNIT DOSE* 17GM PACKET PO SCH ×2 (09:00→20:44)
[2022-09-09] MEDS: NICOTINE 14 MG/24 HR TRANSDERMAL TD SCH (09:00)
[2022-09-09] MEDS: PANTOPRAZOLE 40MG TAB (PROTONIX) PO SCH ×2 (09:59→20:42)
[2022-09-09] MEDS: SENOKOT S TAB PO SCH ×2 (09:59→20:43)
[2022-09-09] MEDS: VENLAFAXINE **XR** 75MG CAPSULE PO SCH (10:00)
[2022-09-09] MEDS: HEPARIN SOD (PORCINE) 5000UNITS/ML 1ML VIAL/SYRINGE SQ SCH ×2 (10:01→20:43)
[2022-09-09] MEDS: PREGABALIN 75 MG CAP(LYRICA) PO SCH ×3 (10:01→20:43)
[2022-09-09 14:00] VITALS: BP 107/64
[2022-09-09] MEDS: HYDROmorphone HCL 2MG/ML 1ML VIAL IV PRN (14:24)
[2022-09-09] MEDS: ATORVASTATIN 20 MG TAB PO SCH (18:13)
[2022-09-09 21:01] VITALS: BP 115/64
[2022-09-09 22:17] VITALS: BP 137/84
[2022-09-10 00:24] VITALS: BP 132/81
[2022-09-10] MEDS: diazePAM 5MG TABLET PO SCH ×4 (05:19→17:35)
[2022-09-10] MEDS: METOPROLOL TART 50 MG TAB PO SCH ×4 (05:19→17:36)
[2022-09-10] MEDS: oxyCODONE 5MG TAB PO PRN ×3 (05:19→17:35)
[2022-09-10] MEDS: SODIUM CHLORIDE 0.9% INJ 10 ML SYR IV SCH ×2 (05:20→17:34)
[2022-09-10 05:56] LABS: BASO # 0.1 10^3/uL (0.0-0.2); BASO % 0.9 % (0.0-1.0); EOS # 0.1 10^3/uL (0.0-0.5); EOS % 1.4 % (0.0-3.0); HEMATOCRIT 26.1 % (42.0-52.0); HEMOGLOBIN 8.3 g/dl (13.5-17.5); LYMPH % 18.2 % (24.0-44.0); MEAN CORPUSCULAR HEMOGLOBIN 28.5 pg (27.0-33.0); MEAN CORPUSCULAR HGB CONC 31.8 g/dl (32.0-36.5); MEAN CORPUSCULAR VOLUME 89.7 fl (80.0-96.0); MONO # 0.7 10^3/uL (0.0-0.8); NEUTROPHILS # 3.8 10^3/uL (1.5-8.5); NEUTROPHILS % 66.3 % (36.0-66.0); PLATELET COUNT, AUTOMATED 465 10^3/uL (150-450); RED BLOOD COUNT 2.91 10^6/uL (4.30-6.10); WHITE BLOOD COUNT 5.7 10^3/uL (4.0-10.0)
[2022-09-10 06:00] VITALS: BP 149/90
[2022-09-10] MEDS: ACETAMINOPHEN TAB 650MG DOSE (2X325MG) PO PRN (06:07)
[2022-09-10 06:27] LABS: BLOOD UREA NITROGEN 10 MG/DL (9-23); CALCIUM LEVEL 8.3 MG/DL (8.5-10.1); CARBON DIOXIDE LEVEL 33 MMOL/L (20-31); CHLORIDE LEVEL 95 MMOL/L (98-107); CREATININE FOR GFR 0.99 MG/DL (0.70-1.30); GLOMERULAR FILTRATION RATE > 60.0 (>60); GLUCOSE, FASTING 262 MG/DL (60-100); POTASSIUM SERUM 4.4 MMOL/L (3.5-5.1); SODIUM LEVEL 133 MMOL/L (136-145)
[2022-09-10] MEDS: HYDROmorphone 4MG TABLET PO PRN ×3 (06:43→20:37)
[2022-09-10] MEDS: INSULIN LISPRO SQ SCH (09:00)
[2022-09-10] MEDS: MIRALAX *UNIT DOSE* 17GM PACKET PO SCH ×2 (09:00→20:37)
[2022-09-10] MEDS: NICOTINE 14 MG/24 HR TRANSDERMAL TD SCH (09:00)
[2022-09-10] MEDS: VENLAFAXINE **XR** 75MG CAPSULE PO SCH (09:51)
[2022-09-10] MEDS: HEPARIN SOD (PORCINE) 5000UNITS/ML 1ML VIAL/SYRINGE SQ SCH ×2 (09:51→20:37)
[2022-09-10] MEDS: SENOKOT S TAB PO SCH ×2 (09:51→20:35)
[2022-09-10] MEDS: PANTOPRAZOLE 40MG TAB (PROTONIX) PO SCH ×2 (09:51→20:35)
[2022-09-10] MEDS: PREGABALIN 75 MG CAP(LYRICA) PO SCH ×3 (09:51→20:37)
[2022-09-10] MEDS: ATORVASTATIN 20 MG TAB PO SCH (17:34)
[2022-09-10 22:00] VITALS: BP 140/82
[2022-09-11] MEDS: oxyCODONE 5MG TAB PO PRN ×4 (00:10→23:16)
[2022-09-11] MEDS: diazePAM 5MG TABLET PO SCH ×5 (00:10→23:15)
[2022-09-11] MEDS: METOPROLOL TART 50 MG TAB PO SCH ×5 (00:10→23:15)
[2022-09-11] MEDS: HYDROmorphone 4MG TABLET PO PRN ×3 (00:55→20:12)
[2022-09-11] MEDS: RAMELTEON 8 MG TAB (ROZEREM) PO PRN ×2 (00:55→23:16)
[2022-09-11 06:00] VITALS: BP 138/73
[2022-09-11] MEDS: SODIUM CHLORIDE 0.9% INJ 10 ML SYR IV SCH ×2 (06:00→18:17)
[2022-09-11 06:49] LABS: HEMATOCRIT 24.5 % (42.0-52.0); HEMOGLOBIN 7.7 g/dl (13.5-17.5); MEAN CORPUSCULAR HGB CONC 31.4 g/dl (32.0-36.5); MEAN CORPUSCULAR VOLUME 89.1 fl (80.0-96.0); PLATELET COUNT, AUTOMATED 304 10^3/uL (150-450); RED BLOOD COUNT 2.75 10^6/uL (4.30-6.10)
[2022-09-11 07:21] LABS: BLOOD UREA NITROGEN 9 MG/DL (9-23); CALCIUM LEVEL 8.4 MG/DL (8.5-10.1); CARBON DIOXIDE LEVEL 32 MMOL/L (20-31); CHLORIDE LEVEL 95 MMOL/L (98-107); CREATININE FOR GFR 0.95 MG/DL (0.70-1.30); GLOMERULAR FILTRATION RATE > 60.0 (>60); GLUCOSE, FASTING 267 MG/DL (60-100); POTASSIUM SERUM 4.6 MMOL/L (3.5-5.1); SODIUM LEVEL 134 MMOL/L (136-145)
[2022-09-11] MEDS: HEPARIN SOD (PORCINE) 5000UNITS/ML 1ML VIAL/SYRINGE SQ SCH ×2 (08:19→20:11)
[2022-09-11] MEDS: MIRALAX *UNIT DOSE* 17GM PACKET PO SCH ×2 (08:19→20:10)
[2022-09-11] MEDS: PANTOPRAZOLE 40MG TAB (PROTONIX) PO SCH ×2 (08:19→20:10)
[2022-09-11] MEDS: SENOKOT S TAB PO SCH ×2 (08:22→20:10)
[2022-09-11] MEDS: PREGABALIN 75 MG CAP(LYRICA) PO SCH ×3 (08:22→20:10)
[2022-09-11] MEDS: VENLAFAXINE **XR** 75MG CAPSULE PO SCH (08:22)
[2022-09-11] MEDS: NICOTINE 14 MG/24 HR TRANSDERMAL TD SCH (08:23)
[2022-09-11] MEDS: INSULIN LISPRO SQ SCH (09:00)
[2022-09-11] MEDS ORDERED: NALO8SPR NS (11:44)
[2022-09-11] MEDS ORDERED: DILA4TAB13 PO (11:44)
[2022-09-11] MEDS ORDERED: OXYC-517 PO (11:44)
[2022-09-11] MEDS ORDERED: LOPR1TAB6 PO (11:44)
[2022-09-11 14:00] VITALS: BP 136/74
[2022-09-11] MEDS: ATORVASTATIN 20 MG TAB PO SCH (18:15)
[2022-09-11 21:00] VITALS: BP 135/78
[2022-09-12] MEDS: HYDROmorphone 4MG TABLET PO PRN ×3 (03:58→22:07)
[2022-09-12 06:00] VITALS: BP 112/67
[2022-09-12] MEDS: diazePAM 5MG TABLET PO SCH ×3 (06:00→19:00)
[2022-09-12] MEDS: METOPROLOL TART 50 MG TAB PO SCH ×3 (06:00→18:00)
[2022-09-12 06:43] LABS: HEMATOCRIT 25.2 % (42.0-52.0); MEAN CORPUSCULAR HEMOGLOBIN 28.5 pg (27.0-33.0); MEAN CORPUSCULAR HGB CONC 31.7 g/dl (32.0-36.5); MEAN CORPUSCULAR VOLUME 89.7 fl (80.0-96.0); PLATELET COUNT, AUTOMATED 419 10^3/uL (150-450); RED BLOOD COUNT 2.81 10^6/uL (4.30-6.10); WHITE BLOOD COUNT 4.3 10^3/uL (4.0-10.0)
[2022-09-12] MEDS: SODIUM CHLORIDE 0.9% INJ 10 ML SYR IV SCH ×2 (06:48→18:11)
[2022-09-12 07:11] LABS: BLOOD UREA NITROGEN 10 MG/DL (9-23); CALCIUM LEVEL 8.3 MG/DL (8.5-10.1); CARBON DIOXIDE LEVEL 32 MMOL/L (20-31); CHLORIDE LEVEL 96 MMOL/L (98-107); CREATININE FOR GFR 0.99 MG/DL (0.70-1.30); GLOMERULAR FILTRATION RATE > 60.0 (>60); GLUCOSE, FASTING 348 MG/DL (60-100); POTASSIUM SERUM 4.6 MMOL/L (3.5-5.1); SODIUM LEVEL 133 MMOL/L (136-145)
[2022-09-12 08:15] VITALS: BP 140/80
[2022-09-12] MEDS: NICOTINE 14 MG/24 HR TRANSDERMAL TD SCH (09:00)
[2022-09-12] MEDS: MIRALAX *UNIT DOSE* 17GM PACKET PO SCH ×2 (09:00→20:35)
[2022-09-12] MEDS: PREGABALIN 75 MG CAP(LYRICA) PO SCH ×3 (09:00→20:34)
[2022-09-12] MEDS: INSULIN LISPRO SQ SCH (09:00)
[2022-09-12] MEDS: HEPARIN SOD (PORCINE) 5000UNITS/ML 1ML VIAL/SYRINGE SQ SCH ×2 (09:22→20:34)
[2022-09-12] MEDS: PANTOPRAZOLE 40MG TAB (PROTONIX) PO SCH ×2 (09:23→20:34)
[2022-09-12] MEDS: VENLAFAXINE **XR** 75MG CAPSULE PO SCH (09:23)
[2022-09-12] MEDS: SENOKOT S TAB PO SCH ×2 (09:24→20:35)
[2022-09-12 10:55] VITALS: BP 122/68
[2022-09-12] MEDS: oxyCODONE 5MG TAB PO PRN (11:12)
[2022-09-12 14:09] VITALS: BP 127/77
[2022-09-12] MEDS: ATORVASTATIN 20 MG TAB PO SCH (18:10)
[2022-09-12] MEDS: HYDROmorphone HCL 2MG/ML 1ML VIAL IV PRN (18:11)
[2022-09-12 21:00] VITALS: BP 125/77
[2022-09-13] MEDS: diazePAM 5MG TABLET PO SCH ×4 (00:28→18:01)
[2022-09-13] MEDS: HYDROmorphone HCL 2MG/ML 1ML VIAL IV PRN ×3 (02:40→16:37)
[2022-09-13] MEDS: SODIUM CHLORIDE 0.9% INJ 10 ML SYR IV PRN ×2 (02:42→09:43)
[2022-09-13 04:50] VITALS: BP 126/78
[2022-09-13] MEDS: METOPROLOL TART 50 MG TAB PO SCH ×4 (06:00→18:00)
[2022-09-13] MEDS: HYDROmorphone 4MG TABLET PO PRN ×3 (06:35→19:47)
[2022-09-13] MEDS: SODIUM CHLORIDE 0.9% INJ 10 ML SYR IV SCH ×2 (06:35→16:38)
[2022-09-13 07:05] LABS: HEMATOCRIT 25.3 % (42.0-52.0); MEAN CORPUSCULAR HEMOGLOBIN 28.3 pg (27.0-33.0); MEAN CORPUSCULAR HGB CONC 31.6 g/dl (32.0-36.5); MEAN CORPUSCULAR VOLUME 89.4 fl (80.0-96.0); PLATELET COUNT, AUTOMATED 447 10^3/uL (150-450); RED BLOOD COUNT 2.83 10^6/uL (4.30-6.10); WHITE BLOOD COUNT 4.9 10^3/uL (4.0-10.0)
[2022-09-13 07:39] LABS: BLOOD UREA NITROGEN 11 MG/DL (9-23); CARBON DIOXIDE LEVEL 32 MMOL/L (20-31); CHLORIDE LEVEL 99 MMOL/L (98-107); CREATININE FOR GFR 1.01 MG/DL (0.70-1.30); GLOMERULAR FILTRATION RATE > 60.0 (>60); GLUCOSE, FASTING 148 MG/DL (60-100); POTASSIUM SERUM 4.7 MMOL/L (3.5-5.1); SODIUM LEVEL 137 MMOL/L (136-145)
[2022-09-13] MEDS: MIRALAX *UNIT DOSE* 17GM PACKET PO SCH ×2 (08:00→20:44)
[2022-09-13] MEDS: NICOTINE 14 MG/24 HR TRANSDERMAL TD SCH (08:01)
[2022-09-13] MEDS: SENOKOT S TAB PO SCH ×2 (08:26→21:03)
[2022-09-13] MEDS: PREGABALIN 75 MG CAP(LYRICA) PO SCH ×3 (08:26→21:03)
[2022-09-13] MEDS: PANTOPRAZOLE 40MG TAB (PROTONIX) PO SCH ×2 (08:26→21:03)
[2022-09-13] MEDS: VENLAFAXINE **XR** 75MG CAPSULE PO SCH (08:26)
[2022-09-13] MEDS: HEPARIN SOD (PORCINE) 5000UNITS/ML 1ML VIAL/SYRINGE SQ SCH ×2 (08:27→21:04)
[2022-09-13] MEDS: INSULIN LISPRO SQ SCH (08:30)
[2022-09-13 14:00] VITALS: BP 137/89
[2022-09-13] MEDS: ATORVASTATIN 20 MG TAB PO SCH (18:01)
[2022-09-13 21:20] VITALS: BP 133/91
[2022-09-13] MEDS ORDERED: HYDROmorphone HCL 2MG/ML 1ML VIAL IV ONE (22:00)
[2022-09-14] MEDS: KETOROLAC 30 MG/ML 1ML VIAL IV PRN ×3 (00:16→16:55)
[2022-09-14] MEDS: diazePAM 5MG TABLET PO SCH ×5 (00:17→21:07)
[2022-09-14 05:00] VITALS: BP 142/92
[2022-09-14 05:47] LABS: HEMATOCRIT 25.8 % (42.0-52.0); HEMOGLOBIN 8.3 g/dl (13.5-17.5); MEAN CORPUSCULAR HEMOGLOBIN 28.6 pg (27.0-33.0); MEAN CORPUSCULAR HGB CONC 32.2 g/dl (32.0-36.5); PLATELET COUNT, AUTOMATED 425 10^3/uL (150-450); WHITE BLOOD COUNT 4.2 10^3/uL (4.0-10.0)
[2022-09-14] MEDS: METOPROLOL TART 50 MG TAB PO SCH ×5 (06:00→16:58)
[2022-09-14] MEDS: SODIUM CHLORIDE 0.9% INJ 10 ML SYR IV SCH ×2 (06:00→16:55)
[2022-09-14 06:43] LABS: BLOOD UREA NITROGEN 12 MG/DL (9-23); CALCIUM LEVEL 8.6 MG/DL (8.5-10.1); CARBON DIOXIDE LEVEL 32 MMOL/L (20-31); CHLORIDE LEVEL 97 MMOL/L (98-107); CREATININE FOR GFR 1.02 MG/DL (0.70-1.30); GLOMERULAR FILTRATION RATE > 60.0 (>60); GLUCOSE, FASTING 142 MG/DL (60-100); MAGNESIUM LEVEL 1.7 MG/DL (1.8-2.4); POTASSIUM SERUM 4.6 MMOL/L (3.5-5.1); SODIUM LEVEL 135 MMOL/L (136-145)
[2022-09-14] MEDS: MIRALAX *UNIT DOSE* 17GM PACKET PO SCH ×2 (08:57→21:00)
[2022-09-14] MEDS: NICOTINE 14 MG/24 HR TRANSDERMAL TD SCH ×2 (08:57→09:00)
[2022-09-14] MEDS: SENOKOT S TAB PO SCH ×2 (08:58→21:05)
[2022-09-14] MEDS: PREGABALIN 75 MG CAP(LYRICA) PO SCH ×3 (08:58→21:05)
[2022-09-14] MEDS: HEPARIN SOD (PORCINE) 5000UNITS/ML 1ML VIAL/SYRINGE SQ SCH ×2 (08:58→21:05)
[2022-09-14] MEDS: VENLAFAXINE **XR** 75MG CAPSULE PO SCH (08:58)
[2022-09-14] MEDS: PANTOPRAZOLE 40MG TAB (PROTONIX) PO SCH ×2 (08:58→21:05)
[2022-09-14] MEDS: INSULIN LISPRO SQ SCH (08:59)
[2022-09-14] MEDS: HYDROmorphone 4MG TABLET PO PRN ×2 (09:53→16:56)
[2022-09-14] MEDS: ATORVASTATIN 20 MG TAB PO SCH (16:54)
[2022-09-14] MEDS: LINEZOLID 600MG TABLET (ZYVOX) PO SCH (21:04)
[2022-09-14] MEDS: LevoFLOXacin 750 MG TABLET PO SCH (21:04)
[2022-09-14] MEDS: ACETAMINOPHEN TAB 650MG DOSE (2X325MG) PO PRN (21:06)
[2022-09-14] MEDS: HYDROmorphone HCL 2MG/ML 1ML VIAL IV PRN (21:06)
[2022-09-14 22:00] VITALS: BP 113/76
[2022-09-15] MEDS: RAMELTEON 8 MG TAB (ROZEREM) PO PRN (00:45)
[2022-09-15] MEDS: HYDROmorphone 4MG TABLET PO PRN ×3 (00:46→16:30)
[2022-09-15 06:00] VITALS: BP 114/74
[2022-09-15] MEDS: SODIUM CHLORIDE 0.9% INJ 10 ML SYR IV SCH ×2 (06:00→17:58)
[2022-09-15] MEDS: METOPROLOL TART 50 MG TAB PO SCH ×4 (06:00→18:00)
[2022-09-15] MEDS: diazePAM 5MG TABLET PO SCH (06:00)
[2022-09-15 06:03] LABS: HEMATOCRIT 24.3 % (42.0-52.0); HEMOGLOBIN 7.8 g/dl (13.5-17.5); MEAN CORPUSCULAR HGB CONC 32.1 g/dl (32.0-36.5); MEAN CORPUSCULAR VOLUME 87.1 fl (80.0-96.0); PLATELET COUNT, AUTOMATED 343 10^3/uL (150-450); RED BLOOD COUNT 2.79 10^6/uL (4.30-6.10)
[2022-09-15 06:16] LABS: ERYTHROCYTE SEDIMENTATION RATE 64 mm/hr (0-15)
[2022-09-15 06:26] LABS: BLOOD UREA NITROGEN 17 MG/DL (9-23); CALCIUM LEVEL 8.4 MG/DL (8.5-10.1); CARBON DIOXIDE LEVEL 30 MMOL/L (20-31); CHLORIDE LEVEL 96 MMOL/L (98-107); CREATININE FOR GFR 1.01 MG/DL (0.70-1.30); GLOMERULAR FILTRATION RATE > 60.0 (>60); GLUCOSE, FASTING 228 MG/DL (60-100); POTASSIUM SERUM 4.6 MMOL/L (3.5-5.1); SODIUM LEVEL 131 MMOL/L (136-145)
[2022-09-15] MEDS: MIRALAX *UNIT DOSE* 17GM PACKET PO SCH ×2 (09:21→21:00)
[2022-09-15] MEDS: SENOKOT S TAB PO SCH ×2 (09:21→21:23)
[2022-09-15] MEDS: VENLAFAXINE **XR** 75MG CAPSULE PO SCH (09:21)
[2022-09-15] MEDS: PREGABALIN 75 MG CAP(LYRICA) PO SCH ×2 (09:21→16:31)
[2022-09-15] MEDS: PANTOPRAZOLE 40MG TAB (PROTONIX) PO SCH ×2 (09:21→21:24)
[2022-09-15] MEDS: LINEZOLID 600MG TABLET (ZYVOX) PO SCH ×2 (09:22→21:28)
[2022-09-15] MEDS: NICOTINE 14 MG/24 HR TRANSDERMAL TD SCH (09:22)
[2022-09-15] MEDS: HEPARIN SOD (PORCINE) 5000UNITS/ML 1ML VIAL/SYRINGE SQ SCH ×2 (09:22→21:24)
[2022-09-15] MEDS: INSULIN LISPRO SQ SCH (09:45)
[2022-09-15] MEDS: HYDROmorphone HCL 2MG/ML 1ML VIAL IV PRN ×2 (12:34→18:46)
[2022-09-15 14:00] VITALS: BP 105/66
[2022-09-15 17:02] LABS: TOTAL 25(OH) VITAMIN D 12.7 NG/ML (20.0-100.0)
[2022-09-15] MEDS: ATORVASTATIN 20 MG TAB PO SCH (17:57)
[2022-09-15 20:00] VITALS: BP 109/74
[2022-09-15] MEDS: LevoFLOXacin 750 MG TABLET PO SCH (21:23)
[2022-09-15] MEDS: GABAPENTIN 300 MG CAP PO SCH (21:23)
[2022-09-16 06:00] VITALS: BP 96/66
[2022-09-16] MEDS: METOPROLOL TART 50 MG TAB PO SCH ×5 (06:00→23:55)
[2022-09-16 06:13] LABS: HEMATOCRIT 24.5 % (42.0-52.0); HEMOGLOBIN 7.9 g/dl (13.5-17.5); MEAN CORPUSCULAR HEMOGLOBIN 28.1 pg (27.0-33.0); MEAN CORPUSCULAR HGB CONC 32.2 g/dl (32.0-36.5); MEAN CORPUSCULAR VOLUME 87.2 fl (80.0-96.0); PLATELET COUNT, AUTOMATED 402 10^3/uL (150-450); RED BLOOD COUNT 2.81 10^6/uL (4.30-6.10); WHITE BLOOD COUNT 3.7 10^3/uL (4.0-10.0)
[2022-09-16] MEDS: SODIUM CHLORIDE 0.9% INJ 10 ML SYR IV SCH ×2 (06:15→17:32)
[2022-09-16 06:45] LABS: BLOOD UREA NITROGEN 13 MG/DL (9-23); CALCIUM LEVEL 8.8 MG/DL (8.5-10.1); CARBON DIOXIDE LEVEL 32 MMOL/L (20-31); CHLORIDE LEVEL 100 MMOL/L (98-107); CORTISOL AM 5.8 UG/DL (4.3-22.4); CREATININE FOR GFR 1.27 MG/DL (0.70-1.30); GLOMERULAR FILTRATION RATE > 60.0 (>60); GLUCOSE, FASTING 186 MG/DL (60-100); SODIUM LEVEL 136 MMOL/L (136-145)
[2022-09-16] MEDS ORDERED: ACETAMINOPHEN 500 MG TAB PO ONE (06:50)
[2022-09-16] MEDS ORDERED: IBUPROFEN 800 MG TAB PO ONE (06:50)
[2022-09-16] MEDS: HYDROmorphone 4MG TABLET PO PRN ×2 (08:17)
[2022-09-16] MEDS: PANTOPRAZOLE 40MG TAB (PROTONIX) PO SCH ×2 (08:52→20:05)
[2022-09-16] MEDS: MIRALAX *UNIT DOSE* 17GM PACKET PO SCH ×2 (08:52→20:05)
[2022-09-16] MEDS: HEPARIN SOD (PORCINE) 5000UNITS/ML 1ML VIAL/SYRINGE SQ SCH ×2 (08:52→20:05)
[2022-09-16] MEDS: DULoxetine 30MG CAPSULE (CYMBALTA) PO SCH (08:52)
[2022-09-16] MEDS: LINEZOLID 600MG TABLET (ZYVOX) PO SCH ×2 (08:52→20:05)
[2022-09-16] MEDS: SENOKOT S TAB PO SCH ×2 (08:52→20:05)
[2022-09-16] MEDS: GABAPENTIN 300 MG CAP PO SCH ×2 (08:52→09:00)
[2022-09-16] MEDS: NICOTINE 14 MG/24 HR TRANSDERMAL TD SCH (09:00)
[2022-09-16] MEDS: INSULIN LISPRO SQ SCH (09:12)
[2022-09-16] MEDS: HYDROmorphone HCL 2MG/ML 1ML VIAL IV PRN (10:36)
[2022-09-16] MEDS: oxyCODONE 5MG TAB PO SCH ×3 (12:57→23:59)
[2022-09-16 14:00] VITALS: BP 103/69
[2022-09-16] MEDS: PREGABALIN 75 MG CAP(LYRICA) PO SCH ×2 (16:09→20:05)
[2022-09-16] MEDS: ATORVASTATIN 20 MG TAB PO SCH (17:32)
[2022-09-16] MEDS: LevoFLOXacin 750 MG TABLET PO SCH (20:05)
[2022-09-16 22:00] VITALS: BP 131/85
[2022-09-16 23:54] VITALS: BP 130/83
[2022-09-17 05:34] VITALS: BP 123/80
[2022-09-17] MEDS: METOPROLOL TART 50 MG TAB PO SCH ×3 (05:36→17:25)
[2022-09-17] MEDS ORDERED: oxyCODONE 5MG TAB As Ordered ONE (05:38)
[2022-09-17] MEDS: SODIUM CHLORIDE 0.9% INJ 10 ML SYR IV SCH ×2 (05:40→17:28)
[2022-09-17] MEDS: oxyCODONE 5MG TAB PO SCH ×3 (05:41→17:28)
[2022-09-17 06:17] LABS: HEMATOCRIT 28.1 % (42.0-52.0); HEMOGLOBIN 8.7 g/dl (13.5-17.5); MEAN CORPUSCULAR HEMOGLOBIN 28.1 pg (27.0-33.0); MEAN CORPUSCULAR VOLUME 90.6 fl (80.0-96.0); PLATELET COUNT, AUTOMATED 383 10^3/uL (150-450); WHITE BLOOD COUNT 2.8 10^3/uL (4.0-10.0)
[2022-09-17 06:34] LABS: BLOOD UREA NITROGEN 14 MG/DL (9-23); CARBON DIOXIDE LEVEL 31 MMOL/L (20-31); CHLORIDE LEVEL 104 MMOL/L (98-107); CREATININE FOR GFR 1.27 MG/DL (0.70-1.30); GLOMERULAR FILTRATION RATE > 60.0 (>60); GLUCOSE, FASTING 219 MG/DL (60-100); SODIUM LEVEL 140 MMOL/L (136-145)
[2022-09-17] MEDS: MIRALAX *UNIT DOSE* 17GM PACKET PO SCH ×2 (08:36→20:14)
[2022-09-17] MEDS: HEPARIN SOD (PORCINE) 5000UNITS/ML 1ML VIAL/SYRINGE SQ SCH ×2 (08:41→20:14)
[2022-09-17] MEDS: PANTOPRAZOLE 40MG TAB (PROTONIX) PO SCH ×2 (08:42→20:14)
[2022-09-17] MEDS: SENOKOT S TAB PO SCH ×2 (08:42→20:14)
[2022-09-17] MEDS: DULoxetine 30MG CAPSULE (CYMBALTA) PO SCH (08:42)
[2022-09-17] MEDS: PREGABALIN 75 MG CAP(LYRICA) PO SCH ×3 (08:42→20:14)
[2022-09-17] MEDS: LINEZOLID 600MG TABLET (ZYVOX) PO SCH ×2 (08:42→20:14)
[2022-09-17] MEDS: NICOTINE 14 MG/24 HR TRANSDERMAL TD SCH (08:43)
[2022-09-17] MEDS ORDERED: VITAMIN D 50,000 UNITS CAPSULE (ERGOCALCIFEROL 1.25MG) PO SCH (09:00)
[2022-09-17] MEDS: INSULIN LISPRO SQ SCH (09:00)
[2022-09-17] MEDS ORDERED: DRIS50003 PO (11:24)
[2022-09-17] MEDS ORDERED: OXYC-517 PO ×2 (11:24→11:27)
[2022-09-17] MEDS ORDERED: LINE1TAB6 PO (11:24)
[2022-09-17] MEDS ORDERED: CYMB1CAP5 PO (11:24)
[2022-09-17] MEDS ORDERED: MIRA1POW3 PO (11:24)
[2022-09-17] MEDS ORDERED: MIDO5TA PO ×2 (11:24→11:38)
[2022-09-17] MEDS ORDERED: LEVO1TAB40 PO (11:24)
[2022-09-17] MEDS ORDERED: METO25TA4 PO (11:24)
[2022-09-17 14:00] VITALS: BP 143/98
[2022-09-17 17:25] VITALS: BP 143/98
[2022-09-17] MEDS: ATORVASTATIN 20 MG TAB PO SCH (17:26)
[2022-09-17] MEDS: LevoFLOXacin 750 MG TABLET PO SCH (20:14)
== END 2022-09-17 20:20 | disposition home health service (06) | DRG 464 ==
LOC: M SDC 12:50 → EEVIPCON 17:10 → M ED INP 17:10 → M MSPAV 21:28
PROVIDERS: ADMIT Family Medicine; ATTEND Internal Medicine
PROC: 0QSG05Z Reposition Right Tibia with External Fixation Device, Open Approach (ICD-10-PCS; 2022-08-24)
PROC: 02HV33Z Insertion of Infusion Device into Superior Vena Cava, Percutaneous Approach (ICD-10-PCS; 2022-08-27)
PROC: 0YBK0ZZ Excision of Right Ankle Region, Open Approach (ICD-10-PCS; 2022-08-28)
PROC: BQ1GZZZ Fluoroscopy of Right Ankle (ICD-10-PCS; 2022-08-28)
PROC: 0JBN0ZZ Excision of Right Lower Leg Subcutaneous Tissue and Fascia, Open Approach (ICD-10-PCS; principal; 2022-08-30)
PROC: 30233N1 Transfusion of Nonautologous Red Blood Cells into Peripheral Vein, Percutaneous Approach (ICD-10-PCS; 2022-09-01)
PROC: 0Y6H0Z1 Detachment at Right Lower Leg, High, Open Approach (ICD-10-PCS; 2022-09-05)
DX: M86.8X7 Other osteomyelitis, ankle and foot (principal); M00.9 Pyogenic arthritis, unspecified; T87.43 Infection of amputation stump, right lower extremity; I96 Gangrene, not elsewhere classified; E87.1 Hypo-osmolality and hyponatremia; S82.851A Displaced trimalleolar fracture of right lower leg, initial encounter for closed fracture; E10.621 Type 1 diabetes mellitus with foot ulcer; F17.220 Nicotine dependence, chewing tobacco, uncomplicated; Z89.432 Acquired absence of left foot; E55.9 Vitamin D deficiency, unspecified; K21.9 Gastro-esophageal reflux disease without esophagitis; L89.519 Pressure ulcer of right ankle, unspecified stage; I10 Essential (primary) hypertension; R00.0 Tachycardia, unspecified; E87.5 Hyperkalemia; Z79.4 Long term (current) use of insulin; Z79.899 Other long term (current) drug therapy; Z20.822 Contact with and (suspected) exposure to COVID-19; Z88.0 Allergy status to penicillin; Z88.1 Allergy status to other antibiotic agents; E10.42 Type 1 diabetes mellitus with diabetic polyneuropathy; E10.649 Type 1 diabetes mellitus with hypoglycemia without coma; I95.9 Hypotension, unspecified; D64.9 Anemia, unspecified; E10.65 Type 1 diabetes mellitus with hyperglycemia; X58.XXXA Exposure to other specified factors, initial encounter; Y92.9 Unspecified place or not applicable

== ENCOUNTER → 2022-09-03 | Outpatient (CLI) | payer MEDICARE, OTHER ==
[~2022-09-03] MED LIST changes: +FLUD0.1T PO
== END ==
LOC: M SOG 13:39
PROVIDERS: ATTEND Orthopaedic Surgery Hand Surgery
DX: Z53.9 Procedure and treatment not carried out, unspecified reason (principal)

== ENCOUNTER → 2022-09-22 | Outpatient (REF) | payer MEDICARE, OTHER ==
[~2022-09-22] MED LIST changes: +DILA4TAB13 PO; +DRIS50003 PO; +LEVO1TAB40 PO; +LOPR1TAB6 PO; +MIRA1POW3 PO; +NALO8SPR NS; +OXYC-517 PO
[2022-09-22 17:21] LABS: BASO # 0.1 10^3/uL (0.0-0.2); BASO % 1.3 % (0.0-1.0); EOS % 0.7 % (0.0-3.0); HEMATOCRIT 32.4 % (42.0-52.0); HEMOGLOBIN 10.4 g/dl (13.5-17.5); LYMPH # 1.8 10^3/uL (1.5-5.0); LYMPH % 33.6 % (24.0-44.0); MEAN CORPUSCULAR HEMOGLOBIN 28.2 pg (27.0-33.0); MEAN CORPUSCULAR HGB CONC 32.1 g/dl (32.0-36.5); MEAN CORPUSCULAR VOLUME 87.8 fl (80.0-96.0); MONO # 0.5 10^3/uL (0.0-0.8); MONO % 9.3 % (2.0-8.0); NEUTROPHILS # 2.9 10^3/uL (1.5-8.5); NEUTROPHILS % 54.7 % (36.0-66.0); PLATELET COUNT, AUTOMATED 402 10^3/uL (150-450); RED BLOOD COUNT 3.69 10^6/uL (4.30-6.10); WHITE BLOOD COUNT 5.4 10^3/uL (4.0-10.0)
== END ==
LOC: M LAB REF 16:13
PROVIDERS: ATTEND Family Medicine Addiction Medicine
DX: D64.9 Anemia, unspecified (principal)

== ENCOUNTER 2022-10-19 11:16 | Inpatient (IN) | payer MEDICARE, OTHER ==
[~2022-10-19] VITALS: Ht 180.3 cm; Wt 81.5 kg
[2022-10-19] VITALS (8 sets, daily range): BP systolic 108–133; BP diastolic 67–81
[~2022-10-19 11:16] MED LIST changes: +INSULIN LISPRO (NovoLOG) PER UNIT SC PRN; +LIDOCAINE 2% 100MG/5ML SDV (FOR ANES.) As Ordered ONE; +LR 1,000 ML IV SCH; +MIDAZOLAM INJ 2MG/2ML VIAL As Ordered ONE; +NS 1,000 ML IV SCH; +ONDANSETRON 4MG 2ML VIAL As Ordered ONE; +VANCOMYCIN HCL 1,000 MG, VIAL MATE ADAPTER 1 EACH in D5W 250 ML IV ONE; +fentaNYL 100 MCG/2 ML INJECTION As Ordered ONE
[2022-10-19 12:06] LABS: HEMATOCRIT 35.5 % (42.0-52.0); HEMOGLOBIN 11.5 g/dl (13.5-17.5); MEAN CORPUSCULAR HEMOGLOBIN 28.1 pg (27.0-33.0); MEAN CORPUSCULAR HGB CONC 32.4 g/dl (32.0-36.5); MEAN CORPUSCULAR VOLUME 86.8 fl (80.0-96.0); PLATELET COUNT, AUTOMATED 317 10^3/uL (150-450); RED BLOOD COUNT 4.09 10^6/uL (4.30-6.10); WHITE BLOOD COUNT 4.6 10^3/uL (4.0-10.0)
[2022-10-19 12:16] LABS: INR 0.93; PROTHROMBIN TIME 12.7 SECONDS (12.5-14.5)
[2022-10-19] MEDS ORDERED: ACETAMINOPHEN 1000MG 100ML IV BAG As Ordered ONE (12:28)
[2022-10-19 12:33] LABS: BLOOD UREA NITROGEN 18 MG/DL (9-23); CALCIUM LEVEL 9.3 MG/DL (8.5-10.1); CARBON DIOXIDE LEVEL 30 MMOL/L (20-31); CHLORIDE LEVEL 98 MMOL/L (98-107); CREATININE FOR GFR 1.06 MG/DL (0.70-1.30); GLOMERULAR FILTRATION RATE > 60.0 (>60); GLUCOSE, FASTING 181 MG/DL (60-100); MAGNESIUM LEVEL 1.6 MG/DL (1.8-2.4); POTASSIUM SERUM 4.2 MMOL/L (3.5-5.1); SODIUM LEVEL 136 MMOL/L (136-145)
[2022-10-19] MEDS ORDERED: METOCLOPRAMIDE INJ 10MG/2ML VIAL As Ordered ONE (12:57)
[2022-10-19] MEDS ORDERED: ROCURONIUM BROMIDE 50MG/5ML VIAL As Ordered ONE (12:57)
[2022-10-19] MEDS ORDERED: KETAMINE HCL 200MG/20ML VIAL As Ordered ONE (12:58)
[2022-10-19] MEDS ORDERED: SUGAMMADEX SODIUM 500 MG/5 ML VIAL (BRIDION) As Ordered ONE (14:25)
[2022-10-19] MEDS ORDERED: PHENYLephrine 500MCG 5ML (100MCG/ML) SYRINGE As Ordered ONE (14:27)
[2022-10-19] MEDS ORDERED: fentaNYL 100 MCG/2 ML INJECTION As Ordered ONE (14:45)
[2022-10-19] MEDS ORDERED: ONDANSETRON 4MG 2ML VIAL IV PRN (14:55)
[2022-10-19] MEDS ORDERED: oxyCODONE 5MG TAB PO PRN (14:55)
[2022-10-19] MEDS ORDERED: METOCLOPRAMIDE INJ 10MG/2ML VIAL IV PRN (14:55)
[2022-10-19] MEDS ORDERED: INSULIN LISPRO (NovoLOG) PER UNIT SC PRN (14:55)
[2022-10-19] MEDS ORDERED: NS 1,000 ML IV SCH (14:55)
[2022-10-19] MEDS ORDERED: fentaNYL 100 MCG/2 ML INJECTION IV PRN (14:55)
[2022-10-19] MEDS: MORPHINE 2 MG/ML 1ML VIAL IV PRN ×2 (15:09→15:17)
[2022-10-19] MEDS ORDERED: GLUCAGON INJ 1MG VIAL SC PRN (15:15)
[2022-10-19] MEDS ORDERED: MAG SULF 1GM/100ML (MAG RUN) 1 GM in IV 1 EA IV ONE (15:15)
[2022-10-19] MEDS ORDERED: DEXTROSE 50% 50ML SYRINGE IV PRN (15:15)
[2022-10-19] MEDS ORDERED: GLUCOSE 4GM CHEW TABLET PO PRN (15:15)
[2022-10-19] MEDS ORDERED: ACETAMINOPHEN 325 MG TAB PO PRN (15:20)
[2022-10-19] MEDS ORDERED: METO25TA4 PO (17:30)
[2022-10-19] MEDS ORDERED: MIDO5TA PO (17:30)
[2022-10-19] MEDS ORDERED: MIRA3350 PO (17:30)
[2022-10-19] MEDS ORDERED: VENL75CA47 PO (17:30)
[2022-10-19] MEDS ORDERED: ATOR40TA75 PO (17:30)
[2022-10-19] MEDS ORDERED: HYDR-3713 PO (17:30)
[2022-10-19] MEDS ORDERED: NALO8SPR NS (17:30)
[2022-10-19] MEDS ORDERED: OXYC-517 PO (17:30)
[2022-10-19] MEDS ORDERED: HOME MED LIST COMPLETE! XX SCH (17:35)
[2022-10-19] MEDS: MIRALAX *UNIT DOSE* 17GM PACKET PO SCH (20:39)
[2022-10-19] MEDS: KETOROLAC 30 MG/ML 1ML VIAL IV SCH (20:40)
[2022-10-19] MEDS: DOCUSATE SODIUM 100MG CAPSULE PO SCH (20:40)
[2022-10-19] MEDS: PREGABALIN 75 MG CAP(LYRICA) PO SCH (20:40)
[2022-10-19] MEDS: NS 1,000 ML IV SCH (20:45)
[2022-10-19] MEDS: ATORVASTATIN 20 MG TAB PO SCH (20:49)
[2022-10-19] MEDS: LevoFLOXacin 750 MG TABLET PO SCH (20:49)
[2022-10-19] MEDS: PANTOPRAZOLE 40MG TAB (PROTONIX) PO SCH (20:50)
[2022-10-19] MEDS: VANCOMYCIN HCL 750 MG, VIAL MATE ADAPTER 1 EACH in D5W 250 ML IV SCH (22:21)
[2022-10-19] MEDS ORDERED: oxyCODONE 5MG TAB PO ONE (23:00)
[2022-10-20] MEDS ORDERED: VANCOMYCIN HCL 1,000 MG, VIAL MATE ADAPTER 1 EACH in NS 250 ML IV SCH (01:00)
[2022-10-20 02:00] VITALS: BP 149/95
[2022-10-20] MEDS ORDERED: carisoprodoL 350 MG TAB PO ONE (03:00)
[2022-10-20] MEDS: KETOROLAC 30 MG/ML 1ML VIAL IV SCH ×3 (03:28→23:52)
[2022-10-20] MEDS: oxyCODONE 5MG TAB PO PRN ×4 (05:08→23:03)
[2022-10-20 06:00] VITALS: BP 150/95
[2022-10-20] MEDS ORDERED: oxyCODONE 5MG TAB PO SCH (06:00)
[2022-10-20 06:28] LABS: BASO % 0.5 % (0.0-1.0); EOS # 0.1 10^3/uL (0.0-0.5); EOS % 1.4 % (0.0-3.0); HEMATOCRIT 26.4 % (42.0-52.0); LYMPH # 1.1 10^3/uL (1.5-5.0); MEAN CORPUSCULAR HEMOGLOBIN 28.2 pg (27.0-33.0); MEAN CORPUSCULAR VOLUME 85.7 fl (80.0-96.0); MONO # 0.4 10^3/uL (0.0-0.8); MONO % 9.5 % (2.0-8.0); NEUTROPHILS # 2.1 10^3/uL (1.5-8.5); NEUTROPHILS % 58.1 % (36.0-66.0); RED BLOOD COUNT 3.08 10^6/uL (4.30-6.10); WHITE BLOOD COUNT 3.7 10^3/uL (4.0-10.0)
[2022-10-20 06:29] LABS: HEMOGLOBIN 8.7 g/dl (13.5-17.5); PLATELET COUNT, AUTOMATED 211 10^3/uL (150-450)
[2022-10-20 06:54] LABS: BLOOD UREA NITROGEN 15 MG/DL (9-23); CALCIUM LEVEL 8.7 MG/DL (8.5-10.1); CARBON DIOXIDE LEVEL 29 MMOL/L (20-31); CHLORIDE LEVEL 98 MMOL/L (98-107); CREATININE FOR GFR 1.08 MG/DL (0.70-1.30); GLOMERULAR FILTRATION RATE > 60.0 (>60); GLUCOSE, FASTING 252 MG/DL (60-100); POTASSIUM SERUM 4.3 MMOL/L (3.5-5.1); SODIUM LEVEL 133 MMOL/L (136-145)
[2022-10-20] MEDS ORDERED: HYDROMORPHONE HCL 0.5 MG/ 0.5 ML SYRINGE IV ONE ×2 (07:25→15:30)
[2022-10-20 08:00] VITALS: BP 149/96
[2022-10-20] MEDS ORDERED: ENTER DRUG NAME HERE (PATIENT'S OWN MED) SQ SCH (09:00)
[2022-10-20] MEDS ORDERED: oxyCODONE 5MG TAB PO ONE (09:00)
[2022-10-20] MEDS: MIRALAX *UNIT DOSE* 17GM PACKET PO SCH ×2 (09:27→20:09)
[2022-10-20] MEDS: PANTOPRAZOLE 40MG TAB (PROTONIX) PO SCH ×2 (09:30→20:09)
[2022-10-20] MEDS: PREGABALIN 75 MG CAP(LYRICA) PO SCH ×3 (09:30→20:09)
[2022-10-20] MEDS: DOCUSATE SODIUM 100MG CAPSULE PO SCH (09:30)
[2022-10-20] MEDS ORDERED: VENL75CA47 PO (09:37)
[2022-10-20] MEDS: VANCOMYCIN HCL 750 MG, VIAL MATE ADAPTER 1 EACH in D5W 250 ML IV SCH (09:43)
[2022-10-20] MEDS ORDERED: KETOROLAC 30 MG/ML 1ML VIAL IV ONE (12:00)
[2022-10-20] MEDS: NS 1,000 ML IV SCH (12:10)
[2022-10-20 14:30] VITALS: BP 142/96
[2022-10-20] MEDS ORDERED: MIRALAX *UNIT DOSE* 17GM PACKET PO PRN (15:30)
[2022-10-20] MEDS ORDERED: MOM 30ML SUSPENSION UDC PO PRN (15:30)
[2022-10-20] MEDS ORDERED: SENOKOT S TAB PO PRN (15:30)
[2022-10-20] MEDS: ATORVASTATIN 20 MG TAB PO SCH (17:29)
[2022-10-20] MEDS: LevoFLOXacin 750 MG TABLET PO SCH (17:29)
[2022-10-20 20:11] VITALS: BP 144/96
[2022-10-20] MEDS: VANCOMYCIN HCL 1,000 MG, VIAL MATE ADAPTER 1 EACH in D5W 250 ML IV SCH (22:01)
[2022-10-20] MEDS: zolPIDEM TARTRATE 5 MG TAB PO PRN (23:52)
[2022-10-21 06:00] VITALS: BP 150/86
[2022-10-21] MEDS: KETOROLAC 30 MG/ML 1ML VIAL IV SCH ×3 (06:08→17:40)
[2022-10-21] MEDS: oxyCODONE 5MG TAB PO PRN ×4 (06:10→20:26)
[2022-10-21 06:31] LABS: BASO % 0.2 % (0.0-1.0); EOS # 0.1 10^3/uL (0.0-0.5); EOS % 1.3 % (0.0-3.0); HEMATOCRIT 27.9 % (42.0-52.0); HEMOGLOBIN 9.2 g/dl (13.5-17.5); LYMPH # 1.2 10^3/uL (1.5-5.0); LYMPH % 26.7 % (24.0-44.0); MEAN CORPUSCULAR HEMOGLOBIN 28.2 pg (27.0-33.0); MEAN CORPUSCULAR VOLUME 85.6 fl (80.0-96.0); MONO # 0.4 10^3/uL (0.0-0.8); MONO % 9.8 % (2.0-8.0); NEUTROPHILS # 2.8 10^3/uL (1.5-8.5); NEUTROPHILS % 61.6 % (36.0-66.0); PLATELET COUNT, AUTOMATED 254 10^3/uL (150-450); RED BLOOD COUNT 3.26 10^6/uL (4.30-6.10); WHITE BLOOD COUNT 4.5 10^3/uL (4.0-10.0)
[2022-10-21 07:00] LABS: BLOOD UREA NITROGEN 12 MG/DL (9-23); CALCIUM LEVEL 8.6 MG/DL (8.5-10.1); CARBON DIOXIDE LEVEL 30 MMOL/L (20-31); CHLORIDE LEVEL 101 MMOL/L (98-107); CREATININE FOR GFR 1.03 MG/DL (0.70-1.30); GLOMERULAR FILTRATION RATE > 60.0 (>60); GLUCOSE, FASTING 328 MG/DL (60-100); SODIUM LEVEL 136 MMOL/L (136-145)
[2022-10-21] MEDS: PREGABALIN 75 MG CAP(LYRICA) PO SCH ×3 (08:45→20:26)
[2022-10-21] MEDS: MIRALAX *UNIT DOSE* 17GM PACKET PO SCH ×2 (08:45→20:25)
[2022-10-21] MEDS: PANTOPRAZOLE 40MG TAB (PROTONIX) PO SCH ×2 (08:45→20:26)
[2022-10-21] MEDS: VANCOMYCIN HCL 1,000 MG, VIAL MATE ADAPTER 1 EACH in D5W 250 ML IV SCH ×2 (10:34→22:23)
[2022-10-21 14:00] VITALS: BP 146/96
[2022-10-21] MEDS: ATORVASTATIN 20 MG TAB PO SCH (17:39)
[2022-10-21] MEDS: LevoFLOXacin 750 MG TABLET PO SCH (17:39)
[2022-10-21 20:01] VITALS: BP 125/80
[2022-10-22] MEDS: oxyCODONE 5MG TAB PO PRN ×5 (00:26→18:28)
[2022-10-22] MEDS: zolPIDEM TARTRATE 5 MG TAB PO PRN (00:26)
[2022-10-22] MEDS: KETOROLAC 30 MG/ML 1ML VIAL IV SCH ×3 (05:55→12:00)
[2022-10-22 06:17] LABS: BASO % 0.4 % (0.0-1.0); EOS # 0.1 10^3/uL (0.0-0.5); EOS % 1.8 % (0.0-3.0); HEMATOCRIT 28.3 % (42.0-52.0); HEMOGLOBIN 8.9 g/dl (13.5-17.5); LYMPH # 1.5 10^3/uL (1.5-5.0); LYMPH % 34.2 % (24.0-44.0); MEAN CORPUSCULAR HEMOGLOBIN 27.5 pg (27.0-33.0); MEAN CORPUSCULAR HGB CONC 31.4 g/dl (32.0-36.5); MEAN CORPUSCULAR VOLUME 87.3 fl (80.0-96.0); MONO # 0.4 10^3/uL (0.0-0.8); MONO % 9.7 % (2.0-8.0); NEUTROPHILS # 2.4 10^3/uL (1.5-8.5); NEUTROPHILS % 53.7 % (36.0-66.0); PLATELET COUNT, AUTOMATED 250 10^3/uL (150-450); RED BLOOD COUNT 3.24 10^6/uL (4.30-6.10); WHITE BLOOD COUNT 4.5 10^3/uL (4.0-10.0)
[2022-10-22 06:48] LABS: BLOOD UREA NITROGEN 14 MG/DL (9-23); CALCIUM LEVEL 8.7 MG/DL (8.5-10.1); CARBON DIOXIDE LEVEL 30 MMOL/L (20-31); CHLORIDE LEVEL 101 MMOL/L (98-107); CREATININE FOR GFR 1.27 MG/DL (0.70-1.30); GLOMERULAR FILTRATION RATE > 60.0 (>60); GLUCOSE, FASTING 279 MG/DL (60-100); POTASSIUM SERUM 5.4 MMOL/L (3.5-5.1); SODIUM LEVEL 135 MMOL/L (136-145)
[2022-10-22 06:54] VITALS: BP 148/90
[2022-10-22 08:03] VITALS: BP 153/99
[2022-10-22] MEDS: PANTOPRAZOLE 40MG TAB (PROTONIX) PO SCH ×2 (08:25→20:29)
[2022-10-22] MEDS: PREGABALIN 75 MG CAP(LYRICA) PO SCH ×3 (08:25→20:30)
[2022-10-22] MEDS: MIRALAX *UNIT DOSE* 17GM PACKET PO SCH ×2 (08:26→20:30)
[2022-10-22] MEDS ORDERED: oxyCODONE 10 MG CR TAB PO SCH (09:00)
[2022-10-22] MEDS ORDERED: VANCOMYCIN HCL 750 MG, VIAL MATE ADAPTER 1 EACH in D5W 250 ML IV SCH (12:00)
[2022-10-22] MEDS: oxyCODONE 10 MG CR TAB PO SCH ×2 (15:29→22:13)
[2022-10-22] MEDS: LevoFLOXacin 750 MG TABLET PO SCH (17:40)
[2022-10-22] MEDS: ATORVASTATIN 20 MG TAB PO SCH (17:41)
[2022-10-22 21:23] VITALS: BP 137/83
[2022-10-22 22:30] LABS: CRYSTALS, BODY FLUID NONE SEEN (NONE SEEN); SOURCE, BODY FLUID RT KNEE; SOURCE, BODY FLUID CRYSTALS RT KNEE
[2022-10-22 22:32] LABS: SYNOVIAL FLUID COLOR YELLOW (COLORLESS)
[2022-10-22 22:40] LABS: SOURCE, BODY FLUID GLUCOSE RT KNEE
[2022-10-22 23:15] LABS: SOURCE, BODY FLUID URIC ACID RT KNEE
[2022-10-23] MEDS: zolPIDEM TARTRATE 5 MG TAB PO PRN ×2 (00:29→23:59)
[2022-10-23] MEDS: oxyCODONE 5MG TAB PO PRN ×5 (00:30→23:59)
[2022-10-23 06:36] VITALS: BP 135/83
[2022-10-23 07:45] LABS: BASO % 0.7 % (0.0-1.0); EOS # 0.1 10^3/uL (0.0-0.5); EOS % 1.3 % (0.0-3.0); HEMATOCRIT 31.1 % (42.0-52.0); HEMOGLOBIN 9.7 g/dl (13.5-17.5); LYMPH # 1.5 10^3/uL (1.5-5.0); LYMPH % 24.5 % (24.0-44.0); MEAN CORPUSCULAR HEMOGLOBIN 27.5 pg (27.0-33.0); MEAN CORPUSCULAR HGB CONC 31.2 g/dl (32.0-36.5); MEAN CORPUSCULAR VOLUME 88.1 fl (80.0-96.0); MONO # 0.5 10^3/uL (0.0-0.8); MONO % 8.9 % (2.0-8.0); NEUTROPHILS # 3.9 10^3/uL (1.5-8.5); NEUTROPHILS % 64.1 % (36.0-66.0); PLATELET COUNT, AUTOMATED 293 10^3/uL (150-450); RED BLOOD COUNT 3.53 10^6/uL (4.30-6.10); WHITE BLOOD COUNT 6.1 10^3/uL (4.0-10.0)
[2022-10-23 08:12] LABS: BLOOD UREA NITROGEN 13 MG/DL (9-23); CALCIUM LEVEL 9.1 MG/DL (8.5-10.1); CARBON DIOXIDE LEVEL 31 MMOL/L (20-31); CHLORIDE LEVEL 101 MMOL/L (98-107); CREATININE FOR GFR 1.11 MG/DL (0.70-1.30); GLOMERULAR FILTRATION RATE > 60.0 (>60); GLUCOSE, FASTING 229 MG/DL (60-100); POTASSIUM SERUM 4.7 MMOL/L (3.5-5.1); SODIUM LEVEL 139 MMOL/L (136-145)
[2022-10-23] MEDS: PANTOPRAZOLE 40MG TAB (PROTONIX) PO SCH ×2 (08:52→20:50)
[2022-10-23] MEDS: LINEZOLID 600MG TABLET (ZYVOX) PO SCH ×2 (08:52→20:50)
[2022-10-23] MEDS: PREGABALIN 75 MG CAP(LYRICA) PO SCH ×3 (08:52→20:49)
[2022-10-23] MEDS: MIRALAX *UNIT DOSE* 17GM PACKET PO SCH ×2 (08:52→20:49)
[2022-10-23] MEDS: metroNIDAZOLE (FLAGYL) 500MG TABLET PO SCH ×3 (08:53→20:50)
[2022-10-23] MEDS: oxyCODONE 10 MG CR TAB PO SCH ×2 (08:53→20:50)
[2022-10-23 14:00] VITALS: BP 133/83
[2022-10-23] MEDS: ATORVASTATIN 20 MG TAB PO SCH (17:04)
[2022-10-23 20:34] VITALS: BP 136/85
[2022-10-24 05:57] VITALS: BP 157/102
[2022-10-24 06:26] LABS: BASO % 0.8 % (0.0-1.0); EOS # 0.1 10^3/uL (0.0-0.5); EOS % 1.3 % (0.0-3.0); HEMATOCRIT 27.9 % (42.0-52.0); LYMPH # 1.2 10^3/uL (1.5-5.0); LYMPH % 21.9 % (24.0-44.0); MEAN CORPUSCULAR HEMOGLOBIN 28.1 pg (27.0-33.0); MEAN CORPUSCULAR HGB CONC 32.3 g/dl (32.0-36.5); MEAN CORPUSCULAR VOLUME 87.2 fl (80.0-96.0); MONO # 0.5 10^3/uL (0.0-0.8); NEUTROPHILS # 3.5 10^3/uL (1.5-8.5); NEUTROPHILS % 66.6 % (36.0-66.0); PLATELET COUNT, AUTOMATED 279 10^3/uL (150-450); WHITE BLOOD COUNT 5.2 10^3/uL (4.0-10.0)
[2022-10-24 06:57] LABS: BLOOD UREA NITROGEN 16 MG/DL (9-23); CALCIUM LEVEL 9.2 MG/DL (8.5-10.1); CARBON DIOXIDE LEVEL 30 MMOL/L (20-31); CHLORIDE LEVEL 100 MMOL/L (98-107); CREATININE FOR GFR 1.14 MG/DL (0.70-1.30); GLOMERULAR FILTRATION RATE > 60.0 (>60); GLUCOSE, FASTING 284 MG/DL (60-100); POTASSIUM SERUM 5.3 MMOL/L (3.5-5.1); SODIUM LEVEL 136 MMOL/L (136-145)
[2022-10-24 07:45] VITALS: BP 125/85
[2022-10-24 08:00] VITALS: BP 158/92
[2022-10-24] MEDS: MIRALAX *UNIT DOSE* 17GM PACKET PO SCH ×2 (08:24→20:54)
[2022-10-24] MEDS: PREGABALIN 75 MG CAP(LYRICA) PO SCH ×3 (08:26→20:44)
[2022-10-24] MEDS: metroNIDAZOLE (FLAGYL) 500MG TABLET PO SCH ×3 (08:26→20:44)
[2022-10-24] MEDS: oxyCODONE 10 MG CR TAB PO SCH ×2 (08:26→20:43)
[2022-10-24] MEDS: LINEZOLID 600MG TABLET (ZYVOX) PO SCH ×2 (08:27→20:44)
[2022-10-24] MEDS: PANTOPRAZOLE 40MG TAB (PROTONIX) PO SCH ×2 (08:27→20:44)
[2022-10-24] MEDS: oxyCODONE 5MG TAB PO PRN ×3 (11:25→23:07)
[2022-10-24 14:30] VITALS: BP 124/82
[2022-10-24] MEDS: ATORVASTATIN 20 MG TAB PO SCH (18:34)
[2022-10-24 22:00] VITALS: BP 122/81
[2022-10-24] MEDS: zolPIDEM TARTRATE 5 MG TAB PO PRN (23:07)
[2022-10-25] VITALS (7 sets, daily range): BP systolic 72–158; BP diastolic 48–89
[2022-10-25 05:55] LABS: BASO % 0.6 % (0.0-1.0); EOS % 0.8 % (0.0-3.0); HEMATOCRIT 27.8 % (42.0-52.0); HEMOGLOBIN 8.8 g/dl (13.5-17.5); LYMPH % 18.8 % (24.0-44.0); MEAN CORPUSCULAR HEMOGLOBIN 27.8 pg (27.0-33.0); MEAN CORPUSCULAR HGB CONC 31.7 g/dl (32.0-36.5); MEAN CORPUSCULAR VOLUME 87.7 fl (80.0-96.0); MONO # 0.4 10^3/uL (0.0-0.8); MONO % 7.2 % (2.0-8.0); NEUTROPHILS # 3.8 10^3/uL (1.5-8.5); NEUTROPHILS % 72.2 % (36.0-66.0); PLATELET COUNT, AUTOMATED 267 10^3/uL (150-450); RED BLOOD COUNT 3.17 10^6/uL (4.30-6.10); WHITE BLOOD COUNT 5.3 10^3/uL (4.0-10.0)
[2022-10-25 06:27] LABS: BLOOD UREA NITROGEN 22 MG/DL (9-23); CALCIUM LEVEL 8.9 MG/DL (8.5-10.1); CARBON DIOXIDE LEVEL 27 MMOL/L (20-31); CHLORIDE LEVEL 98 MMOL/L (98-107); CREATININE FOR GFR 1.24 MG/DL (0.70-1.30); GLOMERULAR FILTRATION RATE > 60.0 (>60); GLUCOSE, FASTING 459 MG/DL (60-100); POTASSIUM SERUM 5.5 MMOL/L (3.5-5.1); SODIUM LEVEL 132 MMOL/L (136-145)
[2022-10-25] MEDS: LINEZOLID 600MG TABLET (ZYVOX) PO SCH ×2 (08:56→23:32)
[2022-10-25] MEDS: PREGABALIN 75 MG CAP(LYRICA) PO SCH ×3 (08:56→22:35)
[2022-10-25] MEDS: PANTOPRAZOLE 40MG TAB (PROTONIX) PO SCH ×2 (08:56→22:35)
[2022-10-25] MEDS: metroNIDAZOLE (FLAGYL) 500MG TABLET PO SCH ×3 (08:56→22:35)
[2022-10-25] MEDS: oxyCODONE 10 MG CR TAB PO SCH ×2 (08:57→22:11)
[2022-10-25] MEDS: MIRALAX *UNIT DOSE* 17GM PACKET PO SCH ×2 (08:57→22:35)
[2022-10-25] MEDS ORDERED: OXYC-673 PO (10:23)
[2022-10-25] MEDS ORDERED: METR-265 PO (10:23)
[2022-10-25] MEDS ORDERED: LINE1TAB6 PO (10:23)
[2022-10-25] MEDS ORDERED: OXYC-517 PO (10:23)
[2022-10-25] MEDS: oxyCODONE 5MG TAB PO PRN ×2 (11:57→16:33)
[2022-10-25] MEDS: ATORVASTATIN 20 MG TAB PO SCH (17:17)
[2022-10-25] MEDS ORDERED: LR 1,000 ML IV ONE (20:35)
[2022-10-25 21:21] LABS: HEMATOCRIT 23.5 % (42.0-52.0); HEMOGLOBIN 7.5 g/dl (13.5-17.5)
[2022-10-25] MEDS ORDERED: MORPHINE 2 MG/ML 1ML VIAL IV ONE (22:00)
[2022-10-26] VITALS (7 sets, daily range): BP systolic 98–139; BP diastolic 58–87
[2022-10-26] MEDS: zolPIDEM TARTRATE 5 MG TAB PO PRN (01:04)
[2022-10-26] MEDS: oxyCODONE 10 MG CR TAB PO SCH ×3 (01:04→20:29)
[2022-10-26 02:30] LABS: HEMATOCRIT 26.3 % (42.0-52.0); HEMOGLOBIN 8.4 g/dl (13.5-17.5)
[2022-10-26 06:03] LABS: BASO % 0.4 % (0.0-1.0); EOS % 0.7 % (0.0-3.0); HEMATOCRIT 26.2 % (42.0-52.0); HEMOGLOBIN 8.5 g/dl (13.5-17.5); LYMPH # 1.1 10^3/uL (1.5-5.0); LYMPH % 19.1 % (24.0-44.0); MEAN CORPUSCULAR HEMOGLOBIN 28.2 pg (27.0-33.0); MEAN CORPUSCULAR HGB CONC 32.4 g/dl (32.0-36.5); MONO # 0.5 10^3/uL (0.0-0.8); MONO % 8.6 % (2.0-8.0); NEUTROPHILS # 3.9 10^3/uL (1.5-8.5); NEUTROPHILS % 70.8 % (36.0-66.0); PLATELET COUNT, AUTOMATED 258 10^3/uL (150-450); RED BLOOD COUNT 3.01 10^6/uL (4.30-6.10); WHITE BLOOD COUNT 5.6 10^3/uL (4.0-10.0)
[2022-10-26 06:40] LABS: CALCIUM LEVEL 8.5 MG/DL (8.5-10.1); CREATININE FOR GFR 1.7 MG/DL (0.70-1.30); GLOMERULAR FILTRATION RATE 47.5 (>60); POTASSIUM SERUM 5.2 MMOL/L (3.5-5.1)
[2022-10-26] MEDS: PANTOPRAZOLE 40MG TAB (PROTONIX) PO SCH ×2 (08:47→20:29)
[2022-10-26] MEDS: PREGABALIN 75 MG CAP(LYRICA) PO SCH ×3 (08:47→20:29)
[2022-10-26] MEDS: metroNIDAZOLE (FLAGYL) 500MG TABLET PO SCH ×3 (08:47→20:29)
[2022-10-26] MEDS: MIRALAX *UNIT DOSE* 17GM PACKET PO SCH ×2 (08:47→20:29)
[2022-10-26] MEDS: LINEZOLID 600MG TABLET (ZYVOX) PO SCH ×2 (08:47→20:29)
[2022-10-26] MEDS: NS 1,000 ML IV SCH ×2 (08:47→15:55)
[2022-10-26] MEDS: oxyCODONE 5MG TAB PO PRN ×2 (11:50→15:56)
[2022-10-26 15:32] LABS: C REACTIVE PROTEIN QUANTITATIV 1.9 MG/DL (<1.0)
[2022-10-26] MEDS: ATORVASTATIN 20 MG TAB PO SCH (17:19)
[2022-10-27] VITALS: BP 119/71
[2022-10-27] MEDS: NS 1,000 ML IV SCH (00:27)
[2022-10-27] MEDS: oxyCODONE 5MG TAB PO PRN ×3 (00:49→16:47)
[2022-10-27] MEDS: zolPIDEM TARTRATE 5 MG TAB PO PRN (00:49)
[2022-10-27 04:31] VITALS: BP 143/94
[2022-10-27 06:19] LABS: HEMATOCRIT 26.2 % (42.0-52.0); HEMOGLOBIN 8.4 g/dl (13.5-17.5); MEAN CORPUSCULAR HEMOGLOBIN 28.1 pg (27.0-33.0); MEAN CORPUSCULAR HGB CONC 32.1 g/dl (32.0-36.5); MEAN CORPUSCULAR VOLUME 87.6 fl (80.0-96.0); PLATELET COUNT, AUTOMATED 256 10^3/uL (150-450); RED BLOOD COUNT 2.99 10^6/uL (4.30-6.10); WHITE BLOOD COUNT 3.8 10^3/uL (4.0-10.0)
[2022-10-27 06:46] LABS: BLOOD UREA NITROGEN 25 MG/DL (9-23); CALCIUM LEVEL 8.5 MG/DL (8.5-10.1); CARBON DIOXIDE LEVEL 30 MMOL/L (20-31); CHLORIDE LEVEL 106 MMOL/L (98-107); CREATININE FOR GFR 1.23 MG/DL (0.70-1.30); GLOMERULAR FILTRATION RATE > 60.0 (>60); GLUCOSE, FASTING 362 MG/DL (60-100); POTASSIUM SERUM 5.8 MMOL/L (3.5-5.1); SODIUM LEVEL 139 MMOL/L (136-145)
[2022-10-27 08:15] VITALS: BP 131/81
[2022-10-27] MEDS: PANTOPRAZOLE 40MG TAB (PROTONIX) PO SCH ×2 (08:46→21:14)
[2022-10-27] MEDS: LINEZOLID 600MG TABLET (ZYVOX) PO SCH ×2 (08:46→21:13)
[2022-10-27] MEDS: metroNIDAZOLE (FLAGYL) 500MG TABLET PO SCH ×3 (08:46→21:14)
[2022-10-27] MEDS: PREGABALIN 75 MG CAP(LYRICA) PO SCH ×3 (08:46→21:14)
[2022-10-27] MEDS: oxyCODONE 10 MG CR TAB PO SCH ×2 (08:47→21:14)
[2022-10-27] MEDS: MIRALAX *UNIT DOSE* 17GM PACKET PO SCH ×2 (08:48→21:13)
[2022-10-27] MEDS ORDERED: PATIROMER SORBITEX CALCIUM 8.4 GM POWDER PACKET (VELTASSA) PO ONE (09:00)
[2022-10-27 11:53] LABS: ALBUMIN 3.1 G/DL (3.2-5.2); BLOOD UREA NITROGEN 24 MG/DL (9-23); CALCIUM LEVEL 8.8 MG/DL (8.5-10.1); CARBON DIOXIDE LEVEL 24 MMOL/L (20-31); CHLORIDE LEVEL 104 MMOL/L (98-107); CREATININE FOR GFR 1.18 MG/DL (0.70-1.30); GLOMERULAR FILTRATION RATE > 60.0 (>60); GLUCOSE, FASTING 260 MG/DL (60-100); PHOSPHORUS LEVEL 4.9 MG/DL (2.5-4.9); POTASSIUM SERUM 4.8 MMOL/L (3.5-5.1); SODIUM LEVEL 137 MMOL/L (136-145)
[2022-10-27 12:20] VITALS: BP 106/54
[2022-10-27 15:30] VITALS: BP 118/64
[2022-10-27] MEDS: ATORVASTATIN 20 MG TAB PO SCH (17:56)
[2022-10-27 20:00] VITALS: BP 134/76
[2022-10-27] MEDS ORDERED: SIMETHICONE 80MG CHEW TAB PO ONE (20:55)
[2022-10-28] VITALS: BP 155/89
[2022-10-28] MEDS: oxyCODONE 5MG TAB PO PRN ×3 (01:28→15:34)
[2022-10-28 04:00] VITALS: BP 144/84
[2022-10-28 05:40] LABS: HEMATOCRIT 29.5 % (42.0-52.0); HEMOGLOBIN 9.5 g/dl (13.5-17.5); MEAN CORPUSCULAR HEMOGLOBIN 28.4 pg (27.0-33.0); MEAN CORPUSCULAR HGB CONC 32.2 g/dl (32.0-36.5); MEAN CORPUSCULAR VOLUME 88.1 fl (80.0-96.0); PLATELET COUNT, AUTOMATED 268 10^3/uL (150-450); RED BLOOD COUNT 3.35 10^6/uL (4.30-6.10); WHITE BLOOD COUNT 4.8 10^3/uL (4.0-10.0)
[2022-10-28 06:24] LABS: CALCIUM LEVEL 8.7 MG/DL (8.5-10.1); CREATININE FOR GFR 1.42 MG/DL (0.70-1.30); GLOMERULAR FILTRATION RATE 58.5 (>60)
[2022-10-28] MEDS ORDERED: LR 1,000 ML IV ONE (07:05)
[2022-10-28] MEDS ORDERED: INSULIN LISPRO (NovoLOG) PER UNIT SC SCH ×2 (07:30→21:00)
[2022-10-28 07:59] VITALS: BP 136/78
[2022-10-28] MEDS: LINEZOLID 600MG TABLET (ZYVOX) PO SCH ×2 (08:24→20:02)
[2022-10-28] MEDS: PANTOPRAZOLE 40MG TAB (PROTONIX) PO SCH ×2 (08:25→20:02)
[2022-10-28] MEDS: PREGABALIN 75 MG CAP(LYRICA) PO SCH ×3 (08:25→20:02)
[2022-10-28] MEDS: metroNIDAZOLE (FLAGYL) 500MG TABLET PO SCH ×3 (08:25→20:02)
[2022-10-28] MEDS: oxyCODONE 10 MG CR TAB PO SCH ×2 (08:25→20:02)
[2022-10-28] MEDS: MIRALAX *UNIT DOSE* 17GM PACKET PO SCH ×2 (08:26→20:02)
[2022-10-28 11:58] LABS: PERCENT SATURATION 43.8 % (19.7-50.0)
[2022-10-28 12:00] VITALS: BP 136/77
[2022-10-28 12:00] LABS: FERRITIN 176.6 NG/ML (10.5-307.3)
[2022-10-28 12:02] LABS: FOLATE 8.7 NG/ML (>5.4)
[2022-10-28 16:00] VITALS: BP 116/68
[2022-10-28] MEDS: ATORVASTATIN 20 MG TAB PO SCH (17:24)
[2022-10-28 20:00] VITALS: BP 121/72
[2022-10-29 04:00] VITALS: BP 128/77
[2022-10-29 05:49] LABS: HEMATOCRIT 27.1 % (42.0-52.0); HEMOGLOBIN 8.6 g/dl (13.5-17.5); MEAN CORPUSCULAR HEMOGLOBIN 28.1 pg (27.0-33.0); MEAN CORPUSCULAR HGB CONC 31.7 g/dl (32.0-36.5); MEAN CORPUSCULAR VOLUME 88.6 fl (80.0-96.0); PLATELET COUNT, AUTOMATED 232 10^3/uL (150-450); RED BLOOD COUNT 3.06 10^6/uL (4.30-6.10); WHITE BLOOD COUNT 4.7 10^3/uL (4.0-10.0)
[2022-10-29 06:15] LABS: BLOOD UREA NITROGEN 24 MG/DL (9-23); CALCIUM LEVEL 8.6 MG/DL (8.5-10.1); CARBON DIOXIDE LEVEL 32 MMOL/L (20-31); CHLORIDE LEVEL 102 MMOL/L (98-107); CREATININE FOR GFR 1.38 MG/DL (0.70-1.30); GLOMERULAR FILTRATION RATE > 60.0 (>60); GLUCOSE, FASTING 454 MG/DL (60-100); POTASSIUM SERUM 5.3 MMOL/L (3.5-5.1); SODIUM LEVEL 138 MMOL/L (136-145)
[2022-10-29] MEDS: oxyCODONE 5MG TAB PO PRN ×3 (06:29→16:22)
[2022-10-29 07:35] VITALS: BP 141/83
[2022-10-29] MEDS: LINEZOLID 600MG TABLET (ZYVOX) PO SCH ×2 (08:57→21:23)
[2022-10-29] MEDS: MIRALAX *UNIT DOSE* 17GM PACKET PO SCH ×2 (08:57→21:00)
[2022-10-29] MEDS: PANTOPRAZOLE 40MG TAB (PROTONIX) PO SCH ×2 (08:57→21:23)
[2022-10-29] MEDS: oxyCODONE 10 MG CR TAB PO SCH ×2 (08:58→21:23)
[2022-10-29] MEDS: PREGABALIN 75 MG CAP(LYRICA) PO SCH ×3 (08:58→21:23)
[2022-10-29] MEDS: metroNIDAZOLE (FLAGYL) 500MG TABLET PO SCH ×3 (08:58→21:23)
[2022-10-29] MEDS: HEPARIN SOD (PORCINE) 5000UNITS/ML 1ML VIAL/SYRINGE SQ SCH ×2 (14:00→21:24)
[2022-10-29] MEDS ORDERED: INSULIN LISPRO (NovoLOG) PER UNIT SC STA (14:46)
[2022-10-29 15:38] VITALS: BP 140/83
[2022-10-29] MEDS: ATORVASTATIN 20 MG TAB PO SCH (17:57)
[2022-10-29 18:41] VITALS: BP 140/93
[2022-10-29 20:00] VITALS: BP 141/92
[2022-10-30] VITALS (8 sets, daily range): BP systolic 98–140; BP diastolic 62–91
[2022-10-30] MEDS: HEPARIN SOD (PORCINE) 5000UNITS/ML 1ML VIAL/SYRINGE SQ SCH ×3 (05:37→22:00)
[2022-10-30 06:30] LABS: HEMATOCRIT 27.2 % (42.0-52.0); HEMOGLOBIN 8.7 g/dl (13.5-17.5); MEAN CORPUSCULAR HEMOGLOBIN 28.3 pg (27.0-33.0); MEAN CORPUSCULAR VOLUME 88.6 fl (80.0-96.0); PLATELET COUNT, AUTOMATED 231 10^3/uL (150-450); RED BLOOD COUNT 3.07 10^6/uL (4.30-6.10)
[2022-10-30 06:58] LABS: BLOOD UREA NITROGEN 19 MG/DL (9-23); CALCIUM LEVEL 9.1 MG/DL (8.5-10.1); CARBON DIOXIDE LEVEL 30 MMOL/L (20-31); CHLORIDE LEVEL 103 MMOL/L (98-107); CREATININE FOR GFR 1.07 MG/DL (0.70-1.30); GLOMERULAR FILTRATION RATE > 60.0 (>60); GLUCOSE, FASTING 300 MG/DL (60-100); POTASSIUM SERUM 4.9 MMOL/L (3.5-5.1); SODIUM LEVEL 138 MMOL/L (136-145)
[2022-10-30] MEDS: INSULIN LISPRO (NovoLOG) PER UNIT SC SCH ×3 (07:30→17:15)
[2022-10-30] MEDS: MIRALAX *UNIT DOSE* 17GM PACKET PO SCH ×2 (08:34→21:00)
[2022-10-30] MEDS: LEVEMIR (INSULIN DETEMIR) 1 UNITS/0.01ML SC SCH ×2 (08:40→09:29)
[2022-10-30] MEDS: PREGABALIN 75 MG CAP(LYRICA) PO SCH ×3 (08:48→21:36)
[2022-10-30] MEDS: metroNIDAZOLE (FLAGYL) 500MG TABLET PO SCH ×3 (08:48→22:23)
[2022-10-30] MEDS: PANTOPRAZOLE 40MG TAB (PROTONIX) PO SCH ×2 (08:48→21:35)
[2022-10-30] MEDS: oxyCODONE 10 MG CR TAB PO SCH ×2 (08:49→22:31)
[2022-10-30] MEDS: LINEZOLID 600MG TABLET (ZYVOX) PO SCH ×2 (08:49→21:36)
[2022-10-30] MEDS ORDERED: ONDANSETRON 4MG 2ML VIAL As Ordered ONE (13:45)
[2022-10-30] MEDS ORDERED: propofoL 200 MG/20 ML VIAL As Ordered ONE ×2 (13:45→14:56)
[2022-10-30] MEDS ORDERED: LIDOCAINE 2% 100MG/5ML SDV (FOR ANES.) As Ordered ONE (13:45)
[2022-10-30] MEDS ORDERED: fentaNYL 100 MCG/2 ML INJECTION As Ordered ONE (13:48)
[2022-10-30] MEDS ORDERED: MIDAZOLAM INJ 2MG/2ML VIAL As Ordered ONE (14:11)
[2022-10-30] MEDS ORDERED: LIDOCAINE 1% MDV 20ML VIAL As Ordered ONE (14:38)
[2022-10-30] MEDS ORDERED: BUPIVACAINE HCL 0.5% 30ML VIAL As Ordered ONE (14:39)
[2022-10-30] MEDS ORDERED: ACETAMINOPHEN 1000MG 100ML IV BAG As Ordered ONE (14:41)
[2022-10-30] MEDS ORDERED: ceFAZolin 2 GM/D5W 50 ML IV BAG As Ordered ONE (14:49)
[2022-10-30] MEDS ORDERED: ONDANSETRON 4MG 2ML VIAL IV PRN (15:55)
[2022-10-30] MEDS ORDERED: HYDROMORPHONE HCL 0.5 MG/ 0.5 ML SYRINGE IV PRN (15:55)
[2022-10-30] MEDS: fentaNYL 100 MCG/2 ML INJECTION IV PRN ×4 (16:11→16:38)
[2022-10-30] MEDS: oxyCODONE 5MG TAB PO PRN ×3 (16:11→19:25)
[2022-10-30] MEDS: ATORVASTATIN 20 MG TAB PO SCH (17:20)
[2022-10-31] VITALS (7 sets, daily range): BP systolic 92–137; BP diastolic 54–82
[2022-10-31] MEDS: HYDROMORPHONE HCL 0.5 MG/ 0.5 ML SYRINGE IV PRN ×3 (00:12→13:54)
[2022-10-31] MEDS: oxyCODONE 5MG TAB PO PRN ×5 (01:47→21:27)
[2022-10-31] MEDS: HEPARIN SOD (PORCINE) 5000UNITS/ML 1ML VIAL/SYRINGE SQ SCH ×3 (06:00→21:28)
[2022-10-31 07:18] LABS: HEMATOCRIT 24.7 % (42.0-52.0); HEMOGLOBIN 7.8 g/dl (13.5-17.5); MEAN CORPUSCULAR HEMOGLOBIN 27.7 pg (27.0-33.0); MEAN CORPUSCULAR HGB CONC 31.6 g/dl (32.0-36.5); MEAN CORPUSCULAR VOLUME 87.6 fl (80.0-96.0); PLATELET COUNT, AUTOMATED 195 10^3/uL (150-450); RED BLOOD COUNT 2.82 10^6/uL (4.30-6.10); WHITE BLOOD COUNT 5.8 10^3/uL (4.0-10.0)
[2022-10-31] MEDS: INSULIN LISPRO (NovoLOG) PER UNIT SC SCH ×3 (07:30→16:51)
[2022-10-31 07:48] LABS: BLOOD UREA NITROGEN 21 MG/DL (9-23); CALCIUM LEVEL 8.1 MG/DL (8.5-10.1); CARBON DIOXIDE LEVEL 28 MMOL/L (20-31); CHLORIDE LEVEL 100 MMOL/L (98-107); CREATININE FOR GFR 1.19 MG/DL (0.70-1.30); GLOMERULAR FILTRATION RATE > 60.0 (>60); GLUCOSE, FASTING 226 MG/DL (60-100); POTASSIUM SERUM 4.1 MMOL/L (3.5-5.1); SODIUM LEVEL 135 MMOL/L (136-145)
[2022-10-31] MEDS: LEVEMIR (INSULIN DETEMIR) 1 UNITS/0.01ML SC SCH (07:53)
[2022-10-31] MEDS: PANTOPRAZOLE 40MG TAB (PROTONIX) PO SCH ×2 (08:50→21:28)
[2022-10-31] MEDS: metroNIDAZOLE (FLAGYL) 500MG TABLET PO SCH ×3 (08:50→21:28)
[2022-10-31] MEDS: MIRALAX *UNIT DOSE* 17GM PACKET PO SCH ×2 (08:50→21:00)
[2022-10-31] MEDS: PREGABALIN 75 MG CAP(LYRICA) PO SCH ×3 (08:50→21:28)
[2022-10-31] MEDS: LINEZOLID 600MG TABLET (ZYVOX) PO SCH ×2 (08:50→21:28)
[2022-10-31] MEDS: oxyCODONE 10 MG CR TAB PO SCH ×2 (08:53→21:27)
[2022-10-31] MEDS: ATORVASTATIN 20 MG TAB PO SCH (17:17)
[2022-11-01] MEDS: HYDROMORPHONE HCL 0.5 MG/ 0.5 ML SYRINGE IV PRN ×4 (00:06→23:15)
[2022-11-01] MEDS: zolPIDEM TARTRATE 5 MG TAB PO PRN ×2 (00:06→23:14)
[2022-11-01] MEDS: HEPARIN SOD (PORCINE) 5000UNITS/ML 1ML VIAL/SYRINGE SQ SCH ×3 (05:26→20:48)
[2022-11-01 06:00] VITALS: BP 137/85
[2022-11-01 06:02] LABS: HEMATOCRIT 24.3 % (42.0-52.0); HEMOGLOBIN 7.8 g/dl (13.5-17.5); MEAN CORPUSCULAR HEMOGLOBIN 28.1 pg (27.0-33.0); MEAN CORPUSCULAR HGB CONC 32.1 g/dl (32.0-36.5); MEAN CORPUSCULAR VOLUME 87.4 fl (80.0-96.0); PLATELET COUNT, AUTOMATED 171 10^3/uL (150-450); RED BLOOD COUNT 2.78 10^6/uL (4.30-6.10); WHITE BLOOD COUNT 3.9 10^3/uL (4.0-10.0)
[2022-11-01 06:28] LABS: BLOOD UREA NITROGEN 19 MG/DL (9-23); CALCIUM LEVEL 8.7 MG/DL (8.5-10.1); CARBON DIOXIDE LEVEL 28 MMOL/L (20-31); CHLORIDE LEVEL 103 MMOL/L (98-107); CREATININE FOR GFR 1.04 MG/DL (0.70-1.30); GLOMERULAR FILTRATION RATE > 60.0 (>60); GLUCOSE, FASTING 224 MG/DL (60-100); POTASSIUM SERUM 4.3 MMOL/L (3.5-5.1); SODIUM LEVEL 138 MMOL/L (136-145)
[2022-11-01] MEDS: INSULIN LISPRO (NovoLOG) PER UNIT SC SCH ×3 (07:30→17:30)
[2022-11-01] MEDS ORDERED: LEVEMIR (INSULIN DETEMIR) 1 UNITS/0.01ML SC SCH (09:00)
[2022-11-01] MEDS: metroNIDAZOLE (FLAGYL) 500MG TABLET PO SCH ×3 (09:32→20:45)
[2022-11-01] MEDS: LINEZOLID 600MG TABLET (ZYVOX) PO SCH ×2 (09:32→20:45)
[2022-11-01] MEDS: PANTOPRAZOLE 40MG TAB (PROTONIX) PO SCH ×2 (09:32→20:45)
[2022-11-01] MEDS: MIRALAX *UNIT DOSE* 17GM PACKET PO SCH ×2 (09:32→20:47)
[2022-11-01] MEDS: PREGABALIN 75 MG CAP(LYRICA) PO SCH ×3 (09:32→20:45)
[2022-11-01] MEDS: oxyCODONE 10 MG CR TAB PO SCH ×2 (09:33→20:46)
[2022-11-01] MEDS: oxyCODONE 5MG TAB PO PRN ×3 (11:13→20:46)
[2022-11-01 14:00] VITALS: BP 139/93
[2022-11-01] MEDS: ATORVASTATIN 20 MG TAB PO SCH (17:36)
[2022-11-01 20:00] VITALS: BP 123/76
[2022-11-01] MEDS: LEVEMIR (INSULIN DETEMIR) 1 UNITS/0.01ML SC SCH (20:47)
[2022-11-02] MEDS: HEPARIN SOD (PORCINE) 5000UNITS/ML 1ML VIAL/SYRINGE SQ SCH ×3 (05:04→21:44)
[2022-11-02 06:00] VITALS: BP 122/76
[2022-11-02 06:04] LABS: HEMATOCRIT 23.6 % (42.0-52.0); HEMOGLOBIN 7.6 g/dl (13.5-17.5); MEAN CORPUSCULAR HGB CONC 32.2 g/dl (32.0-36.5); MEAN CORPUSCULAR VOLUME 87.1 fl (80.0-96.0); PLATELET COUNT, AUTOMATED 154 10^3/uL (150-450); RED BLOOD COUNT 2.71 10^6/uL (4.30-6.10); WHITE BLOOD COUNT 2.2 10^3/uL (4.0-10.0)
[2022-11-02 06:44] LABS: BLOOD UREA NITROGEN 18 MG/DL (9-23); CALCIUM LEVEL 8.3 MG/DL (8.5-10.1); CARBON DIOXIDE LEVEL 31 MMOL/L (20-31); CHLORIDE LEVEL 103 MMOL/L (98-107); CREATININE FOR GFR 0.95 MG/DL (0.70-1.30); GLOMERULAR FILTRATION RATE > 60.0 (>60); GLUCOSE, FASTING 187 MG/DL (60-100); POTASSIUM SERUM 4.3 MMOL/L (3.5-5.1); SODIUM LEVEL 140 MMOL/L (136-145)
[2022-11-02] MEDS: INSULIN LISPRO (NovoLOG) PER UNIT SC SCH ×3 (07:30→17:13)
[2022-11-02] MEDS: LINEZOLID 600MG TABLET (ZYVOX) PO SCH ×2 (08:21→20:33)
[2022-11-02] MEDS: PANTOPRAZOLE 40MG TAB (PROTONIX) PO SCH ×2 (08:21→20:35)
[2022-11-02] MEDS: metroNIDAZOLE (FLAGYL) 500MG TABLET PO SCH ×3 (08:21→20:36)
[2022-11-02] MEDS: oxyCODONE 10 MG CR TAB PO SCH ×2 (08:22→20:34)
[2022-11-02] MEDS: PREGABALIN 75 MG CAP(LYRICA) PO SCH ×3 (08:22→20:35)
[2022-11-02] MEDS: LEVEMIR (INSULIN DETEMIR) 1 UNITS/0.01ML SC SCH ×2 (08:24→23:07)
[2022-11-02] MEDS: MIRALAX *UNIT DOSE* 17GM PACKET PO SCH ×2 (08:25→20:33)
[2022-11-02] MEDS: oxyCODONE 5MG TAB PO PRN ×4 (08:26→23:13)
[2022-11-02] MEDS: HYDROMORPHONE HCL 0.5 MG/ 0.5 ML SYRINGE IV PRN ×4 (11:14→21:56)
[2022-11-02 12:01] LABS: BASO % 1.4 % (0.0-1.0); EOS # 0.1 10^3/uL (0.0-0.5); EOS % 4.1 % (0.0-3.0); LYMPH # 0.9 10^3/uL (1.5-5.0); LYMPH % 40.3 % (24.0-44.0); MONO # 0.3 10^3/uL (0.0-0.8); MONO % 14.5 % (2.0-8.0); NEUTROPHILS % 39.7 % (36.0-66.0)
[2022-11-02 12:44] LABS: NEUTROPHILS # 0.9 10^3/uL (1.5-8.5)
[2022-11-02 14:00] VITALS: BP 138/86
[2022-11-02] MEDS: ATORVASTATIN 20 MG TAB PO SCH (17:47)
[2022-11-02 20:00] VITALS: BP 133/84
[2022-11-02] MEDS: zolPIDEM TARTRATE 5 MG TAB PO PRN (23:13)
[2022-11-03] MEDS: HYDROMORPHONE HCL 0.5 MG/ 0.5 ML SYRINGE IV PRN ×3 (01:34→08:59)
[2022-11-03] MEDS: HEPARIN SOD (PORCINE) 5000UNITS/ML 1ML VIAL/SYRINGE SQ SCH ×3 (05:14→21:06)
[2022-11-03 06:00] VITALS: BP 140/85
[2022-11-03] MEDS: INSULIN LISPRO (NovoLOG) PER UNIT SC SCH (07:30)
[2022-11-03 07:34] LABS: HEMATOCRIT 25.3 % (42.0-52.0); MEAN CORPUSCULAR HEMOGLOBIN 27.5 pg (27.0-33.0); MEAN CORPUSCULAR HGB CONC 31.6 g/dl (32.0-36.5); MEAN CORPUSCULAR VOLUME 86.9 fl (80.0-96.0); PLATELET COUNT, AUTOMATED 148 10^3/uL (150-450); RED BLOOD COUNT 2.91 10^6/uL (4.30-6.10)
[2022-11-03 08:05] LABS: BLOOD UREA NITROGEN 20 MG/DL (9-23); CALCIUM LEVEL 9.2 MG/DL (8.5-10.1); CARBON DIOXIDE LEVEL 32 MMOL/L (20-31); CHLORIDE LEVEL 102 MMOL/L (98-107); CREATININE FOR GFR 1.03 MG/DL (0.70-1.30); GLOMERULAR FILTRATION RATE > 60.0 (>60); GLUCOSE, FASTING 184 MG/DL (60-100); POTASSIUM SERUM 4.5 MMOL/L (3.5-5.1); SODIUM LEVEL 137 MMOL/L (136-145)
[2022-11-03] MEDS: PREGABALIN 75 MG CAP(LYRICA) PO SCH ×3 (08:24→21:22)
[2022-11-03] MEDS: PANTOPRAZOLE 40MG TAB (PROTONIX) PO SCH ×2 (08:24→21:21)
[2022-11-03] MEDS: metroNIDAZOLE (FLAGYL) 500MG TABLET PO SCH (08:24)
[2022-11-03] MEDS: LINEZOLID 600MG TABLET (ZYVOX) PO SCH (08:24)
[2022-11-03] MEDS: oxyCODONE 10 MG CR TAB PO SCH (08:26)
[2022-11-03] MEDS: MIRALAX *UNIT DOSE* 17GM PACKET PO SCH ×2 (08:26→21:00)
[2022-11-03] MEDS ORDERED: LEVEMIR (INSULIN DETEMIR) 1 UNITS/0.01ML SC SCH (09:00)
[2022-11-03] MEDS ORDERED: oxyCODONE 10 MG CR TAB PO ONE (11:20)
[2022-11-03] MEDS: oxyCODONE 5MG TAB PO PRN ×2 (12:43→18:16)
[2022-11-03 14:00] VITALS: BP 135/84
[2022-11-03] MEDS ORDERED: HYDROMORPHONE HCL 0.5 MG/ 0.5 ML SYRINGE IV PRN ×2 (15:00→23:55)
[2022-11-03] MEDS: ATORVASTATIN 20 MG TAB PO SCH (17:03)
[2022-11-03] MEDS: LACTOBACILLUS ACIDOPHILUS CAP (BACID) PO SCH (18:09)
[2022-11-03] MEDS: CLINDAMYCIN 150MG CAPSULE PO SCH (21:21)
[2022-11-03] MEDS: oxyCODONE 20MG CR TAB PO SCH (21:23)
[2022-11-03] MEDS: LEVEMIR (INSULIN DETEMIR) 1 UNITS/0.01ML SC SCH (21:24)
[2022-11-03 21:43] VITALS: BP 135/85
[2022-11-03] MEDS: zolPIDEM TARTRATE 5 MG TAB PO PRN (22:57)
[2022-11-04] MEDS: oxyCODONE 5MG TAB PO PRN ×4 (03:07→23:48)
[2022-11-04] MEDS: HEPARIN SOD (PORCINE) 5000UNITS/ML 1ML VIAL/SYRINGE SQ SCH ×3 (05:09→22:00)
[2022-11-04] MEDS: CLINDAMYCIN 150MG CAPSULE PO SCH ×3 (05:51→22:22)
[2022-11-04 06:00] VITALS: BP 116/76
[2022-11-04 06:15] LABS: HEMATOCRIT 24.2 % (42.0-52.0); HEMOGLOBIN 7.7 g/dl (13.5-17.5); MEAN CORPUSCULAR HEMOGLOBIN 27.8 pg (27.0-33.0); MEAN CORPUSCULAR HGB CONC 31.8 g/dl (32.0-36.5); MEAN CORPUSCULAR VOLUME 87.4 fl (80.0-96.0); PLATELET COUNT, AUTOMATED 126 10^3/uL (150-450); RED BLOOD COUNT 2.77 10^6/uL (4.30-6.10); WHITE BLOOD COUNT 2.3 10^3/uL (4.0-10.0)
[2022-11-04 06:40] LABS: BLOOD UREA NITROGEN 24 MG/DL (9-23); CALCIUM LEVEL 9.2 MG/DL (8.5-10.1); CARBON DIOXIDE LEVEL 32 MMOL/L (20-31); CHLORIDE LEVEL 102 MMOL/L (98-107); CREATININE FOR GFR 1.05 MG/DL (0.70-1.30); GLOMERULAR FILTRATION RATE > 60.0 (>60); GLUCOSE, FASTING 165 MG/DL (60-100); POTASSIUM SERUM 4.4 MMOL/L (3.5-5.1); SODIUM LEVEL 139 MMOL/L (136-145)
[2022-11-04] MEDS: PANTOPRAZOLE 40MG TAB (PROTONIX) PO SCH ×2 (08:11→22:22)
[2022-11-04] MEDS: PREGABALIN 75 MG CAP(LYRICA) PO SCH ×3 (08:11→22:21)
[2022-11-04] MEDS: LACTOBACILLUS ACIDOPHILUS CAP (BACID) PO SCH ×2 (08:11→16:07)
[2022-11-04] MEDS: MIRALAX *UNIT DOSE* 17GM PACKET PO SCH ×2 (08:11→21:00)
[2022-11-04] MEDS: LEVEMIR (INSULIN DETEMIR) 1 UNITS/0.01ML SC SCH ×2 (08:12→22:24)
[2022-11-04] MEDS: oxyCODONE 20MG CR TAB PO SCH ×2 (08:18→22:21)
[2022-11-04] MEDS ORDERED: CLIN150C17 PO (11:23)
[2022-11-04] MEDS ORDERED: HYDR-3713 PO (11:26)
[2022-11-04] MEDS ORDERED: RISATAB3 PO (11:28)
[2022-11-04 14:00] VITALS: BP 117/73
[2022-11-04] MEDS: ATORVASTATIN 20 MG TAB PO SCH (16:07)
[2022-11-04 21:00] VITALS: BP 117/72
[2022-11-04] MEDS: zolPIDEM TARTRATE 5 MG TAB PO PRN (23:48)
[2022-11-05 06:00] VITALS: BP 104/64
[2022-11-05] MEDS: HEPARIN SOD (PORCINE) 5000UNITS/ML 1ML VIAL/SYRINGE SQ SCH ×3 (06:00→22:00)
[2022-11-05 06:06] LABS: HEMATOCRIT 23.1 % (42.0-52.0); HEMOGLOBIN 7.4 g/dl (13.5-17.5); MEAN CORPUSCULAR HEMOGLOBIN 27.9 pg (27.0-33.0); MEAN CORPUSCULAR VOLUME 87.2 fl (80.0-96.0); PLATELET COUNT, AUTOMATED 106 10^3/uL (150-450); RED BLOOD COUNT 2.65 10^6/uL (4.30-6.10); WHITE BLOOD COUNT 1.8 10^3/uL (4.0-10.0)
[2022-11-05] MEDS: CLINDAMYCIN 150MG CAPSULE PO SCH ×3 (06:15→22:27)
[2022-11-05 08:45] VITALS: BP 119/74
[2022-11-05] MEDS: LEVEMIR (INSULIN DETEMIR) 1 UNITS/0.01ML SC SCH ×2 (09:00→22:29)
[2022-11-05] MEDS: LACTOBACILLUS ACIDOPHILUS CAP (BACID) PO SCH ×2 (09:27→18:02)
[2022-11-05] MEDS: PANTOPRAZOLE 40MG TAB (PROTONIX) PO SCH ×2 (09:27→22:27)
[2022-11-05] MEDS: MIRALAX *UNIT DOSE* 17GM PACKET PO SCH ×2 (09:27→21:00)
[2022-11-05] MEDS: PREGABALIN 75 MG CAP(LYRICA) PO SCH ×3 (10:04→22:27)
[2022-11-05] MEDS: oxyCODONE 20MG CR TAB PO SCH ×2 (10:05→22:28)
[2022-11-05] MEDS: oxyCODONE 5MG TAB PO PRN ×3 (11:42→19:55)
[2022-11-05 14:00] VITALS: BP 119/73
[2022-11-05] MEDS: ATORVASTATIN 20 MG TAB PO SCH (18:02)
[2022-11-05 18:45] LABS: BASO % 1.2 % (0.0-1.0); EOS # 0.1 10^3/uL (0.0-0.5); EOS % 3.5 % (0.0-3.0); LYMPH # 0.8 10^3/uL (1.5-5.0); LYMPH % 48.8 % (24.0-44.0); MONO # 0.3 10^3/uL (0.0-0.8); MONO % 16.9 % (2.0-8.0); NEUTROPHILS % 29.6 % (36.0-66.0)
[2022-11-05 18:52] LABS: NEUTROPHILS # 0.5 10^3/uL (1.5-8.5)
[2022-11-05 21:05] VITALS: BP 140/84
[2022-11-06] MEDS: zolPIDEM TARTRATE 5 MG TAB PO PRN (00:33)
[2022-11-06] MEDS: oxyCODONE 5MG TAB PO PRN ×5 (00:33→17:30)
[2022-11-06 05:30] VITALS: BP 114/73
[2022-11-06] MEDS: HEPARIN SOD (PORCINE) 5000UNITS/ML 1ML VIAL/SYRINGE SQ SCH ×2 (06:00→14:00)
[2022-11-06] MEDS: CLINDAMYCIN 150MG CAPSULE PO SCH ×2 (06:15→14:41)
[2022-11-06 06:22] LABS: HEMATOCRIT 24.9 % (42.0-52.0); HEMOGLOBIN 7.9 g/dl (13.5-17.5); MEAN CORPUSCULAR HEMOGLOBIN 27.8 pg (27.0-33.0); MEAN CORPUSCULAR HGB CONC 31.7 g/dl (32.0-36.5); MEAN CORPUSCULAR VOLUME 87.7 fl (80.0-96.0); PLATELET COUNT, AUTOMATED 119 10^3/uL (150-450); RED BLOOD COUNT 2.84 10^6/uL (4.30-6.10); WHITE BLOOD COUNT 2.8 10^3/uL (4.0-10.0)
[2022-11-06 07:00] LABS: ATYPICAL LYMPH 4 % (0-5); EOSINOPHILS 2 % (0-3); LYMPHOCYTES 50 % (16-44); MONOCYTES 7 % (0-5); NEUTROPHILS 37 % (28-66)
[2022-11-06 07:01] LABS: ANISOCYTOSIS 1+; HYPOCHROMASIA 1+; PLATELET ESTIMATE NORMAL (NORMAL)
[2022-11-06 07:03] LABS: OVALOCYTES 1+
[2022-11-06] MEDS: PREGABALIN 75 MG CAP(LYRICA) PO SCH ×2 (08:37→16:58)
[2022-11-06] MEDS: LACTOBACILLUS ACIDOPHILUS CAP (BACID) PO SCH ×2 (08:37→17:00)
[2022-11-06] MEDS: PANTOPRAZOLE 40MG TAB (PROTONIX) PO SCH (08:37)
[2022-11-06] MEDS: MIRALAX *UNIT DOSE* 17GM PACKET PO SCH (08:37)
[2022-11-06] MEDS: oxyCODONE 20MG CR TAB PO SCH (08:38)
[2022-11-06] MEDS: LEVEMIR (INSULIN DETEMIR) 1 UNITS/0.01ML SC SCH (08:40)
[2022-11-06] MEDS ORDERED: OXYC-517 PO (12:03)
[2022-11-06] MEDS ORDERED: AMBI5TAB PO (12:03)
[2022-11-06] MEDS ORDERED: OXYC20TA40 PO (12:03)
[2022-11-06 14:00] VITALS: BP 118/77
[2022-11-06] MEDS: ATORVASTATIN 20 MG TAB PO SCH (17:00)
== END 2022-11-06 20:52 | disposition home health service (06) | DRG 464 ==
LOC: M SDC 11:16 → M MS5PR 14:58 → M PCU 10-25 21:45 → M MSPAV 10-29 18:28
PROVIDERS: ADMIT Surgery Vascular Surgery; ATTEND Internal Medicine Nephrology
PROC: 0JBN0ZZ Excision of Right Lower Leg Subcutaneous Tissue and Fascia, Open Approach (ICD-10-PCS; principal; 2022-10-19 13:00)
PROC: 0S9C3ZX Drainage of Right Knee Joint, Percutaneous Approach, Diagnostic (ICD-10-PCS; 2022-10-22)
PROC: 30233N1 Transfusion of Nonautologous Red Blood Cells into Peripheral Vein, Percutaneous Approach (ICD-10-PCS; 2022-10-25)
PROC: 0KBS0ZZ Excision of Right Lower Leg Muscle, Open Approach (ICD-10-PCS; 2022-10-30)
DX: T87.43 Infection of amputation stump, right lower extremity (principal); N17.9 Acute kidney failure, unspecified; D61.818 Other pancytopenia; L76.32 Postprocedural hematoma of skin and subcutaneous tissue following other procedure; T87.81 Dehiscence of amputation stump; T87.53 Necrosis of amputation stump, right lower extremity; K21.9 Gastro-esophageal reflux disease without esophagitis; I12.9 Hypertensive chronic kidney disease with stage 1 through stage 4 chronic kidney disease, or unspecified chronic kidney disease; Z79.4 Long term (current) use of insulin; Z89.511 Acquired absence of right leg below knee; E10.40 Type 1 diabetes mellitus with diabetic neuropathy, unspecified; E10.22 Type 1 diabetes mellitus with diabetic chronic kidney disease; E78.5 Hyperlipidemia, unspecified; N18.2 Chronic kidney disease, stage 2 (mild); F17.220 Nicotine dependence, chewing tobacco, uncomplicated; M25.461 Effusion, right knee; E10.65 Type 1 diabetes mellitus with hyperglycemia; R58 Hemorrhage, not elsewhere classified; D50.0 Iron deficiency anemia secondary to blood loss (chronic); E87.5 Hyperkalemia; I95.9 Hypotension, unspecified; Z79.899 Other long term (current) drug therapy; Z88.0 Allergy status to penicillin; Y83.5 Amputation of limb(s) as the cause of abnormal reaction of the patient, or of later complication, without mention of misadventure at the time of the procedure

== ENCOUNTER → 2022-11-13 | Outpatient (REF) | payer MEDICARE, OTHER ==
[~2022-11-13] MED LIST changes: +AMBI5TAB PO; +ATOR40TA75 PO; -INSULIN LISPRO (NovoLOG) PER UNIT SC PRN; -LIDOCAINE 2% 100MG/5ML SDV (FOR ANES.) As Ordered ONE; -LR 1,000 ML IV SCH; +METR-265 PO; -MIDAZOLAM INJ 2MG/2ML VIAL As Ordered ONE; -NS 1,000 ML IV SCH; -ONDANSETRON 4MG 2ML VIAL As Ordered ONE; +OXYC-673 PO; +OXYC20TA40 PO; +RISATAB3 PO; -VANCOMYCIN HCL 1,000 MG, VIAL MATE ADAPTER 1 EACH in D5W 250 ML IV ONE; -fentaNYL 100 MCG/2 ML INJECTION As Ordered ONE
[2022-11-13 17:56] LABS: BASO % 0.6 % (0.0-1.0); EOS % 0.3 % (0.0-3.0); HEMATOCRIT 33.9 % (42.0-52.0); HEMOGLOBIN 10.8 g/dl (13.5-17.5); LYMPH # 0.6 10^3/uL (1.5-5.0); LYMPH % 17.1 % (24.0-44.0); MEAN CORPUSCULAR HEMOGLOBIN 27.8 pg (27.0-33.0); MEAN CORPUSCULAR HGB CONC 31.9 g/dl (32.0-36.5); MEAN CORPUSCULAR VOLUME 87.4 fl (80.0-96.0); MONO # 0.3 10^3/uL (0.0-0.8); NEUTROPHILS # 2.6 10^3/uL (1.5-8.5); NEUTROPHILS % 72.7 % (36.0-66.0); PLATELET COUNT, AUTOMATED 382 10^3/uL (150-450); RED BLOOD COUNT 3.88 10^6/uL (4.30-6.10); WHITE BLOOD COUNT 3.6 10^3/uL (4.0-10.0)
[2022-11-13 18:18] LABS: IRON (FE) 75 UG/DL (65-175)
[2022-11-13 18:20] LABS: VITAMIN B12 LEVEL 539 PG/ML (211-911)
== END ==
LOC: M LAB REF 16:14
PROVIDERS: ATTEND Family Medicine Addiction Medicine
DX: D64.9 Anemia, unspecified (principal)

== ENCOUNTER 2023-01-22 08:35 | Outpatient (RCR) | payer MEDICARE, OTHER | END 2023-02-12 | LOC: M PT 08:35 | PROVIDERS: ATTEND Surgery Vascular Surgery | DX: E10.40 Type 1 diabetes mellitus with diabetic neuropathy, unspecified (principal); Z89.511 Acquired absence of right leg below knee ==

== ENCOUNTER → 2023-02-24 | Outpatient (CLI) | payer MEDICARE, OTHER | LOC: M SOG 09:10 | PROVIDERS: ATTEND Orthopaedic Surgery | DX: M25.561 Pain in right knee (principal) ==

== ENCOUNTER 2023-05-21 05:25 | Inpatient (IN) | payer MEDICARE, OTHER ==
[2023-05-21] VITALS (10 sets, daily range): BP systolic 115–159; BP diastolic 73–96; TEMP 98.4–99.6; O2SAT 95–100
[~2023-05-21] VITALS: Ht 180.3 cm; Wt 68.2 kg
[~2023-05-21 05:25] MED LIST changes: -GABA-283 PO; +GABA-284 PO
[2023-05-21] MEDS ORDERED: NS 1,000 ML IV ONE (05:35)
[2023-05-21 05:51] LABS: VENOUS BASE EXCESS -14.1 (-2.0-2.0); VENOUS HCO3 11.8 MMOL/L (23.0-27.0); VENOUS O2 SATURATION 68.3 % (60.0-80.0); VENOUS PARTIAL PRESSURE CO2 28.5 mmHg (38.0-50.0); VENOUS PH 7.235 UNITS (7.330-7.430); VENOUS STANDARD HCO3 13.3 MMOL/L; VENOUS TOTAL CO2 12.7 MMOL/L (24.0-28.0)
[2023-05-21 05:53] LABS: HEMATOCRIT 40.2 % (42.0-52.0); HEMOGLOBIN 13.8 g/dl (13.5-17.5); MEAN CORPUSCULAR HEMOGLOBIN 29.6 pg (27.0-33.0); MEAN CORPUSCULAR HGB CONC 34.3 g/dl (32.0-36.5); MEAN CORPUSCULAR VOLUME 86.1 fl (80.0-96.0); PLATELET COUNT, AUTOMATED 362 10^3/uL (150-450); RED BLOOD COUNT 4.67 10^6/uL (4.30-6.10); WHITE BLOOD COUNT 27.6 10^3/uL (4.0-10.0)
[2023-05-21 06:20] LABS: HEMOGLOBIN A1c 12.6 % (4.0-6.0)
[2023-05-21 06:21] LABS: ATYPICAL LYMPH 2 % (0-5); LYMPHOCYTES 5 % (16-44); MONOCYTES 6 % (0-5); NEUTROPHILS 87 % (28-66); PLATELET ESTIMATE NORMAL (NORMAL)
[2023-05-21 06:26] LABS: LIPASE 30 U/L (12-53)
[2023-05-21 06:33] LABS: ACETONE/KETONE > 4.50 MMOL/L (0.02-0.27); ALBUMIN 4.5 G/DL (3.2-5.2); ALKALINE PHOSPHATASE 116 U/L (46-116); ALT/SGPT 26 U/L (7.0-40); AST/SGOT 28 U/L (<34); BILIRUBIN,DIRECT 0.6 MG/DL (<0.4); BILIRUBIN,TOTAL 2.5 MG/DL (0.3-1.2); BLOOD UREA NITROGEN 49 MG/DL (9-23); CALCIUM LEVEL 9.7 MG/DL (8.5-10.1); CARBON DIOXIDE LEVEL 12 MMOL/L (20-31); CHLORIDE LEVEL 81 MMOL/L (98-107); CREATININE FOR GFR 1.57 MG/DL (0.70-1.30); GLOMERULAR FILTRATION RATE 51.8 (>60); GLUCOSE, FASTING 602 MG/DL (60-100); POTASSIUM SERUM 5.2 MMOL/L (3.5-5.1); SODIUM LEVEL 121 MMOL/L (136-145); TOTAL PROTEIN 8.6 G/DL (5.7-8.2)
[2023-05-21] MEDS ORDERED: INSULIN REGULAR IN 0.9 % NACL 100 UNIT in IV 1 EA IV SCH ×2 (06:35)
[2023-05-21] MEDS ORDERED: HumuLIN R (REGULAR) INSULIN (NovoLIN R) **100U/ML** PER UNIT IV ONE ×2 (06:35→07:00)
[2023-05-21] MEDS ORDERED: INSULIN IV RATE CHANGE DOCUMENTATION ML/HR XX SCH (06:35)
[2023-05-21 06:40] LABS: OSMOLALITY SERUM 331 MOSM/KG (275-295)
[2023-05-21] MEDS ORDERED: LR 1,000 ML IV ONE (08:00)
[2023-05-21] MEDS ORDERED: MED REC IN PROGRESS XX SCH ×2 (08:15→08:20)
[2023-05-21] MEDS ORDERED: PANTOPRAZOLE 40MG VIAL IV SCH (09:00)
[2023-05-21] MEDS ORDERED: MED REC CURRENTLY UNOBTAINABLE XX SCH (09:30)
[2023-05-21 10:20] LABS: CALCIUM LEVEL 9.4 MG/DL (8.5-10.1); CREATININE FOR GFR 1.39 MG/DL (0.70-1.30); FREE T4 1.31 NG/DL (0.89-1.76); GLOMERULAR FILTRATION RATE 59.7 (>60); MAGNESIUM LEVEL 2.1 MG/DL (1.8-2.4); PHOSPHORUS LEVEL 4.3 MG/DL (2.5-4.9); POTASSIUM SERUM 4.2 MMOL/L (3.5-5.1); THYROID STIMULATING HORMONE 0.118 uIU/ML (0.55-4.78)
[2023-05-21] MEDS ORDERED: ONDANSETRON 4MG 2ML VIAL As Ordered ONE (10:46)
[2023-05-21] MEDS: ONDANSETRON 4MG 2ML VIAL IV PRN ×2 (10:51→18:50)
[2023-05-21] MEDS: INSULIN REGULAR IN 0.9 % NACL 100 UNIT in IV 1 EA IV SCH ×4 (11:21→18:50)
[2023-05-21] MEDS: INSULIN IV RATE CHANGE DOCUMENTATION ML/HR XX SCH ×6 (11:34→21:06)
[2023-05-21] MEDS ORDERED: ZOLP5TAB PO (11:39)
[2023-05-21] MEDS ORDERED: HYDR-3713 PO (11:39)
[2023-05-21] MEDS ORDERED: HOME MED LIST COMPLETE! XX SCH (11:45)
[2023-05-21] MEDS ORDERED: NS 1,000 ML IV SCH (12:00)
[2023-05-21] MEDS ORDERED: DEXTROSE 50% 50ML SYRINGE IV STA (12:53)
[2023-05-21] MEDS: D5W/0.45% SODIUM CHLORIDE 1,000 ML IV SCH ×2 (13:02→19:52)
[2023-05-21 13:33] LABS: BLOOD UREA NITROGEN 42 MG/DL (9-23); CALCIUM LEVEL 9.4 MG/DL (8.5-10.1); CARBON DIOXIDE LEVEL 18 MMOL/L (20-31); CHLORIDE LEVEL 97 MMOL/L (98-107); CREATININE FOR GFR 1.23 MG/DL (0.70-1.30); GLOMERULAR FILTRATION RATE > 60.0 (>60); GLUCOSE, FASTING 170 MG/DL (60-100); POTASSIUM SERUM 4.3 MMOL/L (3.5-5.1); SODIUM LEVEL 132 MMOL/L (136-145)
[2023-05-21] MEDS: DEXTROSE 50% 50ML SYRINGE IV PRN ×4 (16:18→20:03)
[2023-05-21 17:40] LABS: BLOOD UREA NITROGEN 35 MG/DL (9-23); CALCIUM LEVEL 9.4 MG/DL (8.5-10.1); CARBON DIOXIDE LEVEL 22 MMOL/L (20-31); CHLORIDE LEVEL 98 MMOL/L (98-107); CREATININE FOR GFR 1.11 MG/DL (0.70-1.30); GLOMERULAR FILTRATION RATE > 60.0 (>60); GLUCOSE, FASTING 241 MG/DL (60-100); POTASSIUM SERUM 3.7 MMOL/L (3.5-5.1); SODIUM LEVEL 132 MMOL/L (136-145)
[2023-05-21] MEDS ORDERED: METOCLOPRAMIDE INJ 10MG/2ML VIAL IV ONE (20:05)
[2023-05-21] MEDS ORDERED: LEVEMIR (INSULIN DETEMIR) 1 UNITS/0.01ML SC SCH (21:00)
[2023-05-21 21:14] LABS: BLOOD UREA NITROGEN 29 MG/DL (9-23); CALCIUM LEVEL 9.4 MG/DL (8.5-10.1); CARBON DIOXIDE LEVEL 22 MMOL/L (20-31); CHLORIDE LEVEL 99 MMOL/L (98-107); CREATININE FOR GFR 0.98 MG/DL (0.70-1.30); GLOMERULAR FILTRATION RATE > 60.0 (>60); GLUCOSE, FASTING 246 MG/DL (60-100); POTASSIUM SERUM 3.7 MMOL/L (3.5-5.1); SODIUM LEVEL 133 MMOL/L (136-145)
[2023-05-21] MEDS ORDERED: zolPIDEM TARTRATE 5 MG TAB PO PRN (22:30)
[2023-05-21] MEDS: INSULIN LISPRO (NovoLOG) PER UNIT SC SCH (23:49)
[2023-05-21] MEDS: NORCO, ANEXSIA 5/325MG TABLET (HYDROcodone/ACETAMINOPHEN) PO PRN (23:49)
[2023-05-22] VITALS (7 sets, daily range): BP systolic 101–151; BP diastolic 64–91; TEMP 98.1–98.9; O2SAT 94–100
[2023-05-22] MEDS: ONDANSETRON 4MG 2ML VIAL IV PRN ×2 (00:54→06:54)
[2023-05-22] MEDS: D5W/0.45% SODIUM CHLORIDE 1,000 ML IV SCH ×2 (02:34→11:58)
[2023-05-22 04:05] LABS: BASO % 0.1 % (0.0-1.0); LYMPH # 0.8 10^3/uL (1.5-5.0); LYMPH % 5.1 % (24.0-44.0); MEAN CORPUSCULAR HEMOGLOBIN 29.4 pg (27.0-33.0); MEAN CORPUSCULAR HGB CONC 35.1 g/dl (32.0-36.5); MEAN CORPUSCULAR VOLUME 83.7 fl (80.0-96.0); MONO # 1.4 10^3/uL (0.0-0.8); MONO % 8.7 % (2.0-8.0); NEUTROPHILS # 14.1 10^3/uL (1.5-8.5); NEUTROPHILS % 85.9 % (36.0-66.0); PLATELET COUNT, AUTOMATED 280 10^3/uL (150-450); RED BLOOD COUNT 4.42 10^6/uL (4.30-6.10); WHITE BLOOD COUNT 16.4 10^3/uL (4.0-10.0)
[2023-05-22 04:27] LABS: ALBUMIN 3.3 G/DL (3.2-5.2); BLOOD UREA NITROGEN 23 MG/DL (9-23); CARBON DIOXIDE LEVEL 21 MMOL/L (20-31); CHLORIDE LEVEL 99 MMOL/L (98-107); CREATININE FOR GFR 0.91 MG/DL (0.70-1.30); GLOMERULAR FILTRATION RATE > 60.0 (>60); GLUCOSE, FASTING 224 MG/DL (60-100); PHOSPHORUS LEVEL 2.6 MG/DL (2.5-4.9); POTASSIUM SERUM 3.9 MMOL/L (3.5-5.1); SODIUM LEVEL 132 MMOL/L (136-145)
[2023-05-22] MEDS ORDERED: METOCLOPRAMIDE INJ 10MG/2ML VIAL IV ONE (05:00)
[2023-05-22] MEDS ORDERED: ACETAMINOPHEN *IV* 1,000 MG in IV 1 EA IV ONE (05:00)
[2023-05-22] MEDS: INSULIN LISPRO (NovoLOG) PER UNIT SC SCH ×4 (05:48→17:20)
[2023-05-22] MEDS ORDERED: oxyCODONE 5MG TAB PO ONE (07:00)
[2023-05-22] MEDS: PANTOPRAZOLE 40MG TAB (PROTONIX) PO SCH ×2 (09:23→20:43)
[2023-05-22] MEDS: DOCUSATE SODIUM 100MG CAPSULE PO SCH (09:23)
[2023-05-22] MEDS: PREGABALIN 75 MG CAP(LYRICA) PO SCH ×3 (09:23→20:43)
[2023-05-22] MEDS: VENLAFAXINE **XR** 75MG CAPSULE PO SCH ×2 (09:23→20:43)
[2023-05-22] MEDS: ENOXAPARIN 40MG/0.4ML SYRINGE (J1650 PER 10MG) SC SCH (09:24)
[2023-05-22] MEDS: MIDODRINE 5 MG TAB PO SCH ×2 (09:25→16:14)
[2023-05-22] MEDS: NORCO, ANEXSIA 5/325MG TABLET (HYDROcodone/ACETAMINOPHEN) PO PRN ×3 (09:34→18:59)
[2023-05-22] MEDS: LEVEMIR (INSULIN DETEMIR) 1 UNITS/0.01ML SC SCH ×2 (11:30→20:43)
[2023-05-22] MEDS ORDERED: METOCLOPRAMIDE 10MG TAB PO PRN (12:10)
[2023-05-22] MEDS ORDERED: NS 1,000 ML IV ONE (13:10)
[2023-05-22] MEDS ORDERED: DEXTROSE 50% 50ML SYRINGE IV PRN (13:10)
[2023-05-22] MEDS ORDERED: GLUCOSE 4GM CHEW TABLET PO PRN (13:10)
[2023-05-22] MEDS ORDERED: GLUCAGON INJ 1MG VIAL SC PRN (13:10)
[2023-05-22] MEDS: METOCLOPRAMIDE INJ 10MG/2ML VIAL IV SCH ×2 (17:20→20:44)
[2023-05-22] MEDS ORDERED: INSULIN LISPRO (NovoLOG) PER UNIT SC SCH (21:00)
[2023-05-23] MEDS: NORCO, ANEXSIA 5/325MG TABLET (HYDROcodone/ACETAMINOPHEN) PO PRN ×2 (05:45→10:41)
[2023-05-23 06:00] VITALS: BP 135/92; TEMP 98.6; O2SAT 97
[2023-05-23 06:21] LABS: HEMATOCRIT 36.3 % (42.0-52.0); HEMOGLOBIN 12.5 g/dl (13.5-17.5); MEAN CORPUSCULAR HEMOGLOBIN 29.7 pg (27.0-33.0); MEAN CORPUSCULAR HGB CONC 34.4 g/dl (32.0-36.5); MEAN CORPUSCULAR VOLUME 86.2 fl (80.0-96.0); PLATELET COUNT, AUTOMATED 252 10^3/uL (150-450); RED BLOOD COUNT 4.21 10^6/uL (4.30-6.10); WHITE BLOOD COUNT 11.1 10^3/uL (4.0-10.0)
[2023-05-23 06:45] LABS: BLOOD UREA NITROGEN 16 MG/DL (9-23); CALCIUM LEVEL 9.2 MG/DL (8.5-10.1); CARBON DIOXIDE LEVEL 29 MMOL/L (20-31); CHLORIDE LEVEL 100 MMOL/L (98-107); GLOMERULAR FILTRATION RATE > 60.0 (>60); GLUCOSE, FASTING 226 MG/DL (60-100); POTASSIUM SERUM 4.3 MMOL/L (3.5-5.1); SODIUM LEVEL 135 MMOL/L (136-145)
[2023-05-23] MEDS: INSULIN LISPRO (NovoLOG) PER UNIT SC SCH ×2 (07:30→09:14)
[2023-05-23] MEDS ORDERED: NYSTATIN 500,000U/5ML SUSP UDC PO SCH (09:00)
[2023-05-23] MEDS ORDERED: ISOVUE-370 76% 100ML VIAL As Ordered ONE (09:10)
[2023-05-23] MEDS: ENOXAPARIN 40MG/0.4ML SYRINGE (J1650 PER 10MG) SC SCH (09:12)
[2023-05-23] MEDS: PREGABALIN 75 MG CAP(LYRICA) PO SCH (09:12)
[2023-05-23] MEDS: DOCUSATE SODIUM 100MG CAPSULE PO SCH (09:12)
[2023-05-23] MEDS: METOCLOPRAMIDE INJ 10MG/2ML VIAL IV SCH (09:13)
[2023-05-23] MEDS: MIDODRINE 5 MG TAB PO SCH (09:13)
[2023-05-23] MEDS ORDERED: INSUHUMDS SC (09:13)
[2023-05-23] MEDS: PANTOPRAZOLE 40MG TAB (PROTONIX) PO SCH (09:13)
[2023-05-23] MEDS: VENLAFAXINE **XR** 75MG CAPSULE PO SCH (09:13)
[2023-05-23] MEDS ORDERED: INSUDET SC (09:13)
[2023-05-23] MEDS: LEVEMIR (INSULIN DETEMIR) 1 UNITS/0.01ML SC SCH (09:14)
[2023-05-23] MEDS ORDERED: INSU100I48 SQ (09:15)
[2023-05-23] MEDS ORDERED: PEN1MIS21 SC (09:21)
[2023-05-23] MEDS ORDERED: GLUC1TES2 XX ×2 (09:21→10:53)
[2023-05-23] MEDS ORDERED: LANC30MI XX (09:21)
[2023-05-23] MEDS ORDERED: ALCOPAD25 TOP (09:21)
[2023-05-23] MEDS ORDERED: INSU1MIS20 SC (09:21)
[2023-05-23] MEDS ORDERED: NYST-38 PO (09:22)
[2023-05-23] MEDS ORDERED: GLUCMIS7 XX (10:50)
== END 2023-05-23 12:25 | disposition home or self-care (01) | DRG 919 ==
LOC: EDBD 05:25 → M ED 05:25 → M ED INP 07:40 → ENRESERV 09:21 → M ICU 10:33 → M MSPAV 05-22 17:26
PROVIDERS: ADMIT Internal Medicine Pulmonary Disease; ATTEND General Practice
DX: T85.694A Other mechanical complication of insulin pump, initial encounter (principal); E10.10 Type 1 diabetes mellitus with ketoacidosis without coma; N17.9 Acute kidney failure, unspecified; B37.0 Candidal stomatitis; E10.43 Type 1 diabetes mellitus with diabetic autonomic (poly)neuropathy; R13.10 Dysphagia, unspecified; K21.9 Gastro-esophageal reflux disease without esophagitis; F17.220 Nicotine dependence, chewing tobacco, uncomplicated; Z96.89 Presence of other specified functional implants; Z79.4 Long term (current) use of insulin; Z79.899 Other long term (current) drug therapy; Z88.8 Allergy status to other drugs, medicaments and biological substances; Y83.3 Surgical operation with formation of external stoma as the cause of abnormal reaction of the patient, or of later complication, without mention of misadventure at the time of the procedure; Z88.0 Allergy status to penicillin

== ENCOUNTER → 2023-09-08 | Outpatient (CLI) | payer MEDICARE, OTHER ==
[~2023-09-08] MED LIST changes: +ALCOPAD25 TOP; +E-Z-GAS II EFFERVESCENT PACKET (SODIUM BICARB./CITRIC ACID/SIMETHICONE) As Ordered ONE; +E-Z-HD 98% w/w 340GM SUSP BTL As Ordered ONE; +E-Z-PAQUE 96% w/w SUSP 176GM BTL As Ordered ONE; +GLUC1TES2 XX; +GLUCMIS7 XX; +INSU100I48 SQ; +INSU1MIS20 SC; +INSUDET SC; +INSUHUMDS SC; +LANC30MI XX; +NYST-38 PO; +PEN-308 SC; +ZOLP5TAB PO
== END ==
LOC: M RAD 09:53
PROVIDERS: ATTEND Physician Assistant Medical
DX: K44.9 Diaphragmatic hernia without obstruction or gangrene (principal); R13.10 Dysphagia, unspecified; R93.3 Abnormal findings on diagnostic imaging of other parts of digestive tract

== ENCOUNTER → 2023-09-10 | Outpatient (REF) | payer MEDICARE ==
[~2023-09-10] MED LIST changes: -E-Z-GAS II EFFERVESCENT PACKET (SODIUM BICARB./CITRIC ACID/SIMETHICONE) As Ordered ONE; -E-Z-HD 98% w/w 340GM SUSP BTL As Ordered ONE; -E-Z-PAQUE 96% w/w SUSP 176GM BTL As Ordered ONE
== END ==
LOC: M LAB REF 21:22
PROVIDERS: ATTEND Physician Assistant
DX: M71.061 Abscess of bursa, right knee (principal)

== ENCOUNTER → 2023-10-01 | Outpatient (CLI) | payer MEDICARE, OTHER ==
[~2023-10-01] MED LIST changes: -MIRA1POW3 PO; +MIRA33506 PO
[2023-10-01 16:35] LABS: BLOOD UREA NITROGEN 27 MG/DL (9-23); CALCIUM LEVEL 9.9 MG/DL (8.5-10.1); CARBON DIOXIDE LEVEL 30 MMOL/L (20-31); CHLORIDE LEVEL 100 MMOL/L (98-107); CREATININE FOR GFR 1.23 MG/DL (0.70-1.30); GLOMERULAR FILTRATION RATE > 60.0 (>60); GLUCOSE, FASTING 120 MG/DL (60-100); POTASSIUM SERUM 4.6 MMOL/L (3.5-5.1); SODIUM LEVEL 135 MMOL/L (136-145)
[2023-10-04 16:08] LABS: C-PEPTIDE < 0.1 ng/mL (1.1-4.4); ISLET CELL ANTIBODIES Negative (Neg:<1:1)
== END ==
LOC: M PLALAB 11:54
PROVIDERS: ATTEND Nurse Practitioner Family
DX: E10.649 Type 1 diabetes mellitus with hypoglycemia without coma (principal)

== ENCOUNTER 2023-11-04 16:28 | Emergency (ER) | payer MEDICARE, OTHER ==
[~2023-11-04] VITALS: Ht 180.3 cm; Wt 78.3 kg
[2023-11-04 18:24] LABS: BASO # 0.1 10^3/uL (0.0-0.2); BASO % 1.3 % (0.0-1.0); EOS # 0.1 10^3/uL (0.0-0.5); EOS % 1.7 % (0.0-3.0); HEMATOCRIT 38.5 % (42.0-52.0); HEMOGLOBIN 12.6 g/dl (13.5-17.5); LYMPH # 1.7 10^3/uL (1.5-5.0); MEAN CORPUSCULAR HGB CONC 32.7 g/dl (32.0-36.5); MEAN CORPUSCULAR VOLUME 88.5 fl (80.0-96.0); MONO # 0.6 10^3/uL (0.0-0.8); NEUTROPHILS # 2.3 10^3/uL (1.5-8.5); PLATELET COUNT, AUTOMATED 329 10^3/uL (150-450); RED BLOOD COUNT 4.35 10^6/uL (4.30-6.10); WHITE BLOOD COUNT 4.7 10^3/uL (4.0-10.0)
[2023-11-04 18:49] LABS: ALBUMIN 4.3 G/DL (3.2-5.2); BILIRUBIN,DIRECT 0.3 MG/DL (<0.4); BILIRUBIN,TOTAL 1.6 MG/DL (0.3-1.2); CALCIUM LEVEL 9.8 MG/DL (8.5-10.1); CREATININE FOR GFR 1.91 MG/DL (0.70-1.30); GLOMERULAR FILTRATION RATE 41.3 (>60); POTASSIUM SERUM 4.7 MMOL/L (3.5-5.1); TOTAL PROTEIN 8.2 G/DL (5.7-8.2)
[2023-11-04] MEDS: METOCLOPRAMIDE INJ 10MG/2ML VIAL IV ONE (18:49)
[2023-11-04] MEDS: MORPHINE 4 MG/ML 1ML VIAL IV ONE (18:49)
[2023-11-04] MEDS: NS 1,000 ML IV ONE (19:05)
[2023-11-04] MEDS: GASTROGRAFIN SOLUTION 30ML PO SCH (19:33)
[2023-11-04] MEDS: MORPHINE 4 MG/ML 1ML VIAL IV PRN (21:36)
[2023-11-05] MEDS: INSULIN LISPRO (NovoLOG) PER UNIT SC STA (00:57)
[2023-11-05] MEDS ORDERED: REGL5TAB2 PO (00:59)
[2023-11-05 01:07] VITALS: BP 131/87; TEMP 98.4; O2SAT 97
== END 2023-11-05 01:20 | disposition home or self-care (01) ==
LOC: M ED 16:28
DX: R11.2 Nausea with vomiting, unspecified (principal); R79.89 Other specified abnormal findings of blood chemistry; E10.9 Type 1 diabetes mellitus without complications; R00.0 Tachycardia, unspecified; Z88.0 Allergy status to penicillin; Z88.1 Allergy status to other antibiotic agents; Z91.048 Other nonmedicinal substance allergy status; Z79.899 Other long term (current) drug therapy; Z79.891 Long term (current) use of opiate analgesic; Z79.1 Long term (current) use of non-steroidal anti-inflammatories (NSAID)
CPT/HCPCS: 74176; 80048; 80076; 83690; 85025; 93005; 96361; 96374; 96375; 96376; 99284; J1815; J2765; Q9963

== ENCOUNTER → 2023-11-29 | Day surgery (SDC) | payer MEDICARE, OTHER ==
[~2023-11-29] VITALS: Ht 180.3 cm; Wt 79.7 kg
[~2023-11-29] MED LIST changes: +ADME100I INJ; +GLUC1KIT PO; +HYDR-4433 PO; +LIDOCAINE 2% 100MG/5ML SDV (FOR ANES.) As Ordered ONE; +METO5TAB2 PO; +PREG150C2 PO; +QUET1TAB17 PO; +REGL5TAB2 PO; +RITA20CA PO; +TEST10GE TD; -TEST1GEL10 TD; +fentaNYL 100 MCG/2 ML INJECTION As Ordered ONE; +propofoL 200 MG/20 ML VIAL As Ordered ONE
[2023-11-29 14:39] VITALS: BP 113/70; TEMP 98.4; O2SAT 98
== END | disposition home or self-care (01) ==
LOC: M OPP 11:53
PROVIDERS: ATTEND Internal Medicine Gastroenterology
DX: K22.89 Other specified disease of esophagus (principal); K22.2 Esophageal obstruction; R93.3 Abnormal findings on diagnostic imaging of other parts of digestive tract; R12 Heartburn; R13.10 Dysphagia, unspecified; F17.220 Nicotine dependence, chewing tobacco, uncomplicated; E10.9 Type 1 diabetes mellitus without complications; Z79.1 Long term (current) use of non-steroidal anti-inflammatories (NSAID); Z79.2 Long term (current) use of antibiotics; Z79.4 Long term (current) use of insulin; Z79.891 Long term (current) use of opiate analgesic; Z79.899 Other long term (current) drug therapy; Z88.0 Allergy status to penicillin; Z88.1 Allergy status to other antibiotic agents
CPT/HCPCS: 43239; 43249; 88305; J3010

== ENCOUNTER 2023-12-05 21:01 | Inpatient (IN) | payer MEDICARE, OTHER ==
[~2023-12-05] VITALS: Ht 167.6 cm; Wt 69.0 kg
[~2023-12-05 21:01] MED LIST changes: -GLUC1KIT PO; -HYDR-4433 PO; -LIDOCAINE 2% 100MG/5ML SDV (FOR ANES.) As Ordered ONE; -METO5TAB2 PO; -fentaNYL 100 MCG/2 ML INJECTION As Ordered ONE; -propofoL 200 MG/20 ML VIAL As Ordered ONE
[2023-12-05 21:25] LABS: VENOUS BASE EXCESS -15.3 (-2.0-2.0); VENOUS HCO3 12.5 MMOL/L (23.0-27.0); VENOUS O2 SATURATION 96.4 % (60.0-80.0); VENOUS PARTIAL PRESSURE CO2 36.2 mmHg (38.0-50.0); VENOUS PARTIAL PRESSURE O2 98.3 mmHg (30.0-50.0); VENOUS PH 7.157 UNITS (7.330-7.430); VENOUS STANDARD HCO3 12.9 MMOL/L; VENOUS TOTAL CO2 13.6 MMOL/L (24.0-28.0)
[2023-12-05] MEDS: NS 1,000 ML IV ONE ×2 (21:25→23:01)
[2023-12-05 21:32] LABS: BASO % 0.2 % (0.0-1.0); HEMATOCRIT 39.5 % (42.0-52.0); HEMOGLOBIN 11.9 g/dl (13.5-17.5); LYMPH # 0.5 10^3/uL (1.5-5.0); LYMPH % 4.2 % (24.0-44.0); MEAN CORPUSCULAR HEMOGLOBIN 28.6 pg (27.0-33.0); MEAN CORPUSCULAR HGB CONC 30.1 g/dl (32.0-36.5); MONO # 0.3 10^3/uL (0.0-0.8); MONO % 2.8 % (2.0-8.0); NEUTROPHILS # 10.2 10^3/uL (1.5-8.5); NEUTROPHILS % 92.5 % (36.0-66.0); PLATELET COUNT, AUTOMATED 213 10^3/uL (150-450); RED BLOOD COUNT 4.16 10^6/uL (4.30-6.10)
[2023-12-05 21:57] LABS: HEMOGLOBIN A1c 8.7 % (4.0-6.0)
[2023-12-05 21:58] LABS: OSMOLALITY SERUM 383 MOSM/KG (275-295)
[2023-12-05 22:08] LABS: ETHYL ALCOHOL (ETHANOL) 0.003 % (0.000-0.010)
[2023-12-05 22:09] LABS: CK-MB VALUE MASS < 1.0 NG/ML (<3.6)
[2023-12-05 22:10] LABS: CPK CREATINE PHOSPHOKINASE 41 U/L (46-171); MB/CK RELATIVE INDEX 2.43 (< OR =4); SALICYLATE LEVEL < 3.0 MG/DL (<30)
[2023-12-05 22:12] LABS: THYROID STIMULATING HORMONE 0.026 uIU/ML (0.55-4.78)
[2023-12-05 22:33] LABS: ALBUMIN 3.9 G/DL (3.2-5.2); ALKALINE PHOSPHATASE 102 U/L (46-116); ALT/SGPT 15 U/L (7.0-40); AST/SGOT 8 U/L (<34); BILIRUBIN,DIRECT 0.3 MG/DL (<0.4); BILIRUBIN,TOTAL 1.1 MG/DL (0.3-1.2); BLOOD UREA NITROGEN 47 MG/DL (9-23); CALCIUM LEVEL 9.7 MG/DL (8.5-10.1); CARBON DIOXIDE LEVEL 14 MMOL/L (20-31); CHLORIDE LEVEL 96 MMOL/L (98-107); CREATININE FOR GFR 1.62 MG/DL (0.70-1.30); POTASSIUM SERUM 5.8 MMOL/L (3.5-5.1); SODIUM LEVEL 137 MMOL/L (136-145); TOTAL PROTEIN 7.5 G/DL (5.7-8.2)
[2023-12-05 22:38] LABS: GLUCOSE, FASTING 1132 MG/DL (60-100)
[2023-12-05 22:45] LABS: AMPHETAMINES LEVEL URINE NEGATIVE (NEGATIVE); BENZODIAZEPINES URINE NEGATIVE (NEGATIVE); CANNABINOIDS URINE POSITIVE (NEGATIVE); PHENCYCLIDINE URINE NEGATIVE (NEGATIVE)
[2023-12-05 22:47] LABS: CK-MB VALUE MASS < 1.0 NG/ML (<3.6)
[2023-12-05 22:49] LABS: BARBITURATES URINE NEGATIVE (NEGATIVE); COCAINE METABOLITE URINE NEGATIVE (NEGATIVE)
[2023-12-05 22:50] LABS: ACETONE/KETONE > 4.50 MMOL/L (0.02-0.27); CPK CREATINE PHOSPHOKINASE 53 U/L (46-171); MB/CK RELATIVE INDEX 1.88 (< OR =4)
[2023-12-05] MEDS ORDERED: INSULIN IV RATE CHANGE DOCUMENTATION ML/HR XX SCH (22:50)
[2023-12-05] MEDS: HumuLIN R (REGULAR) INSULIN (NovoLIN R) **100U/ML** PER UNIT IV ONE (22:50)
[2023-12-05 22:54] LABS: METHADONE URINE NEGATIVE (NEGATIVE); OPIATES URINE NEGATIVE (NEGATIVE)
[2023-12-05] MEDS: INSULIN REGULAR IN 0.9 % NACL 100 UNIT in IV 1 EA IV SCH (23:16)
[2023-12-06] VITALS (31 sets, daily range): BP systolic 130–214; BP diastolic 68–104; TEMP 99–99.9; O2SAT 93–100
[2023-12-06] MEDS ORDERED: MED REC IN PROGRESS XX SCH (01:20)
[2023-12-06 01:39] LABS: CREATININE FOR GFR 1.76 MG/DL (0.70-1.30); GLOMERULAR FILTRATION RATE 45.4 (>60); POTASSIUM SERUM 4.1 MMOL/L (3.5-5.1)
[2023-12-06] MEDS ORDERED: POTASSIUM CHLORIDE INJ 20 MEQ in NS 1,000 ML IV SCH (01:55)
[2023-12-06] MEDS ORDERED: MED REC CURRENTLY UNOBTAINABLE XX SCH (02:10)
[2023-12-06] MEDS: INSULIN REGULAR IN 0.9 % NACL 100 UNIT in IV 1 EA IV SCH ×2 (02:45→08:05)
[2023-12-06] MEDS: NS 1,000 ML IV ONE (02:49)
[2023-12-06 04:38] LABS: HEMATOCRIT 36.8 % (42.0-52.0); HEMOGLOBIN 12.1 g/dl (13.5-17.5); MEAN CORPUSCULAR HEMOGLOBIN 28.8 pg (27.0-33.0); MEAN CORPUSCULAR HGB CONC 32.9 g/dl (32.0-36.5); MEAN CORPUSCULAR VOLUME 87.6 fl (80.0-96.0); PLATELET COUNT, AUTOMATED 288 10^3/uL (150-450); WHITE BLOOD COUNT 13.7 10^3/uL (4.0-10.0)
[2023-12-06] MEDS: KCL 20MEQ IN 0.45NS 1000ML 1,000 ML IV SCH (04:46)
[2023-12-06 05:09] LABS: CREATININE FOR GFR 1.67 MG/DL (0.70-1.30); GLOMERULAR FILTRATION RATE 48.3 (>60); PHOSPHORUS LEVEL 2.3 MG/DL (2.5-4.9); POTASSIUM SERUM 4.2 MMOL/L (3.5-5.1)
[2023-12-06 05:51] LABS: CALCIUM LEVEL 9.6 MG/DL (8.5-10.1); CREATININE FOR GFR 1.55 MG/DL (0.70-1.30); GLOMERULAR FILTRATION RATE 52.6 (>60); PHOSPHORUS LEVEL 2.1 MG/DL (2.5-4.9); POTASSIUM SERUM 4.4 MMOL/L (3.5-5.1)
[2023-12-06] MEDS: HEPARIN SOD (PORCINE) 5000UNITS/ML 1ML VIAL/SYRINGE SC SCH (06:00)
[2023-12-06] MEDS: INSULIN IV RATE CHANGE DOCUMENTATION ML/HR XX SCH (06:08)
[2023-12-06] MEDS ORDERED: HYDR-4433 PO (06:29)
[2023-12-06] MEDS ORDERED: METO5TAB2 PO (06:29)
[2023-12-06] MEDS ORDERED: GLUC1KIT PO (06:29)
[2023-12-06] MEDS ORDERED: HOME MED LIST COMPLETE! XX SCH (06:30)
[2023-12-06] MEDS ORDERED: INSULIN IV RATE CHANGE DOCUMENTATION ML/HR XX SCH (08:05)
[2023-12-06 09:09] LABS: VENOUS PH 7.405 UNITS (7.330-7.430)
[2023-12-06 09:10] LABS: VENOUS BASE EXCESS -2.5 (-2.0-2.0); VENOUS HCO3 21.7 MMOL/L (23.0-27.0); VENOUS O2 SATURATION 99.2 % (60.0-80.0); VENOUS PARTIAL PRESSURE CO2 35.4 mmHg (38.0-50.0); VENOUS PARTIAL PRESSURE O2 213.6 mmHg (30.0-50.0); VENOUS STANDARD HCO3 22.4 MMOL/L; VENOUS TOTAL CO2 22.8 MMOL/L (24.0-28.0)
[2023-12-06] MEDS: LR 1,000 ML IV ONE (09:20)
[2023-12-06] MEDS: KCL 20MEQ IN D5/0.45NS 1000ML 1,000 ML IV SCH (09:21)
[2023-12-06 09:42] LABS: CALCIUM LEVEL 9.7 MG/DL (8.5-10.1); CREATININE FOR GFR 1.39 MG/DL (0.70-1.30); GLOMERULAR FILTRATION RATE 59.7 (>60); POTASSIUM SERUM 4.4 MMOL/L (3.5-5.1)
[2023-12-06] MEDS ORDERED: DEXTROSE 50% 50ML SYRINGE IV PRN ×2 (10:10→19:35)
[2023-12-06] MEDS ORDERED: GLUCOSE 4GM CHEW TABLET PO PRN ×2 (10:10→19:35)
[2023-12-06] MEDS ORDERED: GLUCAGON INJ 1MG VIAL SC PRN ×2 (10:10→19:35)
[2023-12-06] MEDS: LEVEMIR (INSULIN DETEMIR) 1 UNITS/0.01ML SC SCH (10:36)
[2023-12-06] MEDS: NORCO, ANEXSIA 5/325MG TABLET (HYDROcodone/ACETAMINOPHEN) PO PRN ×3 (11:27→20:27)
[2023-12-06] MEDS: MORPHINE 2 MG/ML 1ML VIAL IV STA (11:30)
[2023-12-06] MEDS: DOCUSATE SODIUM 100MG CAPSULE PO SCH (11:32)
[2023-12-06] MEDS: MORPHINE 2 MG/ML 1ML VIAL IV ONE (12:14)
[2023-12-06 12:36] LABS: VENOUS BASE EXCESS -0.7 (-2.0-2.0); VENOUS HCO3 23.3 MMOL/L (23.0-27.0); VENOUS PARTIAL PRESSURE CO2 36.1 mmHg (38.0-50.0); VENOUS PH 7.428 UNITS (7.330-7.430); VENOUS TOTAL CO2 24.4 MMOL/L (24.0-28.0)
[2023-12-06] MEDS: INSULIN LISPRO (NovoLOG) PER UNIT SC SCH (13:04)
[2023-12-06 13:10] LABS: BLOOD UREA NITROGEN 33 MG/DL (9-23); CALCIUM LEVEL 9.4 MG/DL (8.5-10.1); CARBON DIOXIDE LEVEL 26 MMOL/L (20-31); CHLORIDE LEVEL 116 MMOL/L (98-107); CREATININE FOR GFR 1.24 MG/DL (0.70-1.30); GLOMERULAR FILTRATION RATE > 60.0 (>60); GLUCOSE, FASTING 179 MG/DL (60-100); POTASSIUM SERUM 3.9 MMOL/L (3.5-5.1); SODIUM LEVEL 152 MMOL/L (136-145)
[2023-12-06] MEDS: ONDANSETRON 4MG 2ML VIAL IV PRN (14:24)
[2023-12-06 15:38] LABS: BLOOD UREA NITROGEN 31 MG/DL (9-23); CALCIUM LEVEL 9.9 MG/DL (8.5-10.1); CARBON DIOXIDE LEVEL 27 MMOL/L (20-31); CHLORIDE LEVEL 117 MMOL/L (98-107); CREATININE FOR GFR 1.18 MG/DL (0.70-1.30); GLOMERULAR FILTRATION RATE > 60.0 (>60); GLUCOSE, FASTING 118 MG/DL (60-100); POTASSIUM SERUM 4.1 MMOL/L (3.5-5.1); SODIUM LEVEL 152 MMOL/L (136-145)
[2023-12-06] MEDS ORDERED: MIDODRINE 5 MG TAB PO SCH (16:00)
[2023-12-06 19:00] LABS: BLOOD UREA NITROGEN 27 MG/DL (9-23); CALCIUM LEVEL 9.7 MG/DL (8.5-10.1); CARBON DIOXIDE LEVEL 26 MMOL/L (20-31); CHLORIDE LEVEL 115 MMOL/L (98-107); CREATININE FOR GFR 1.09 MG/DL (0.70-1.30); GLOMERULAR FILTRATION RATE > 60.0 (>60); GLUCOSE, FASTING 132 MG/DL (60-100); POTASSIUM SERUM 4.8 MMOL/L (3.5-5.1); SODIUM LEVEL 150 MMOL/L (136-145)
[2023-12-06] MEDS: NS 0.45% 1,000 ML IV SCH (19:48)
[2023-12-06] MEDS: PROMETHAZINE 25MG/ML 1ML VIAL IV PRN (19:56)
[2023-12-06 22:47] LABS: BLOOD UREA NITROGEN 23 MG/DL (9-23); CALCIUM LEVEL 9.4 MG/DL (8.5-10.1); CARBON DIOXIDE LEVEL 26 MMOL/L (20-31); CHLORIDE LEVEL 112 MMOL/L (98-107); GLOMERULAR FILTRATION RATE > 60.0 (>60); GLUCOSE, FASTING 181 MG/DL (60-100); SODIUM LEVEL 148 MMOL/L (136-145)
[2023-12-07] VITALS (11 sets, daily range): BP systolic 142–171; BP diastolic 74–95; TEMP 98–98.9; O2SAT 91–100
[2023-12-07] MEDS: INSULIN LISPRO (NovoLOG) PER UNIT SC SCH ×3 (00:04→21:00)
[2023-12-07 05:58] LABS: BLOOD UREA NITROGEN 20 MG/DL (9-23); CALCIUM LEVEL 9.8 MG/DL (8.5-10.1); CARBON DIOXIDE LEVEL 27 MMOL/L (20-31); CHLORIDE LEVEL 112 MMOL/L (98-107); CREATININE FOR GFR 1.04 MG/DL (0.70-1.30); GLOMERULAR FILTRATION RATE > 60.0 (>60); GLUCOSE, FASTING 77 MG/DL (60-100); POTASSIUM SERUM 3.8 MMOL/L (3.5-5.1); SODIUM LEVEL 147 MMOL/L (136-145)
[2023-12-07] MEDS: VENLAFAXINE **XR** 75MG CAPSULE PO SCH (09:20)
[2023-12-07] MEDS: PANTOPRAZOLE 40MG TAB (PROTONIX) PO SCH (09:20)
[2023-12-07] MEDS: LEVEMIR (INSULIN DETEMIR) 1 UNITS/0.01ML SC SCH (09:20)
[2023-12-07] MEDS: ONDANSETRON 4MG 2ML VIAL IV PRN (09:20)
[2023-12-07] MEDS: METOCLOPRAMIDE INJ 10MG/2ML VIAL IV SCH (17:38)
[2023-12-07] MEDS: PANTOPRAZOLE 40MG VIAL IV SCH (21:02)
[2023-12-07] MEDS: QUEtiapine FUMARATE 25 MG TAB PO SCH (21:03)
[2023-12-08 05:35] VITALS: BP 135/93; TEMP 98.4; O2SAT 95
[2023-12-08 06:53] LABS: BASO % 0.5 % (0.0-1.0); EOS # 0.1 10^3/uL (0.0-0.5); EOS % 1.3 % (0.0-3.0); HEMATOCRIT 32.9 % (42.0-52.0); LYMPH # 1.3 10^3/uL (1.5-5.0); LYMPH % 34.4 % (24.0-44.0); MEAN CORPUSCULAR HEMOGLOBIN 28.9 pg (27.0-33.0); MEAN CORPUSCULAR HGB CONC 33.4 g/dl (32.0-36.5); MEAN CORPUSCULAR VOLUME 86.6 fl (80.0-96.0); MONO # 0.4 10^3/uL (0.0-0.8); MONO % 9.9 % (2.0-8.0); NEUTROPHILS % 53.9 % (36.0-66.0); PLATELET COUNT, AUTOMATED 191 10^3/uL (150-450); WHITE BLOOD COUNT 3.7 10^3/uL (4.0-10.0)
[2023-12-08 07:21] LABS: BLOOD UREA NITROGEN 19 MG/DL (9-23); CALCIUM LEVEL 9.3 MG/DL (8.5-10.1); CARBON DIOXIDE LEVEL 30 MMOL/L (20-31); CHLORIDE LEVEL 102 MMOL/L (98-107); CREATININE FOR GFR 0.94 MG/DL (0.70-1.30); GLOMERULAR FILTRATION RATE > 60.0 (>60); GLUCOSE, FASTING 262 MG/DL (60-100); SODIUM LEVEL 138 MMOL/L (136-145)
[2023-12-08 13:53] VITALS: BP 132/78; TEMP 98.5; O2SAT 97
[2023-12-08] MEDS: PREGABALIN 75 MG CAP(LYRICA) PO SCH (16:57)
[2023-12-08] MEDS: METOCLOPRAMIDE 5 MG TAB PO SCH (16:57)
[2023-12-08 19:35] VITALS: BP 141/91; TEMP 98.4; O2SAT 97
[2023-12-08 21:37] VITALS: BP 134/93; TEMP 97.9
[2023-12-09 06:09] VITALS: BP 135/93; TEMP 98.2; O2SAT 97
[2023-12-09 06:35] LABS: BASO % 0.6 % (0.0-1.0); EOS # 0.1 10^3/uL (0.0-0.5); EOS % 2.2 % (0.0-3.0); HEMATOCRIT 35.4 % (42.0-52.0); HEMOGLOBIN 11.4 g/dl (13.5-17.5); LYMPH # 1.1 10^3/uL (1.5-5.0); LYMPH % 32.9 % (24.0-44.0); MEAN CORPUSCULAR HEMOGLOBIN 28.8 pg (27.0-33.0); MEAN CORPUSCULAR HGB CONC 32.2 g/dl (32.0-36.5); MEAN CORPUSCULAR VOLUME 89.4 fl (80.0-96.0); MONO # 0.3 10^3/uL (0.0-0.8); MONO % 8.9 % (2.0-8.0); NEUTROPHILS # 1.8 10^3/uL (1.5-8.5); NEUTROPHILS % 55.1 % (36.0-66.0); PLATELET COUNT, AUTOMATED 178 10^3/uL (150-450); RED BLOOD COUNT 3.96 10^6/uL (4.30-6.10); WHITE BLOOD COUNT 3.3 10^3/uL (4.0-10.0)
[2023-12-09 07:04] LABS: BLOOD UREA NITROGEN 21 MG/DL (9-23); CALCIUM LEVEL 9.5 MG/DL (8.5-10.1); CARBON DIOXIDE LEVEL 26 MMOL/L (20-31); CHLORIDE LEVEL 99 MMOL/L (98-107); CREATININE FOR GFR 1.01 MG/DL (0.70-1.30); GLOMERULAR FILTRATION RATE > 60.0 (>60); GLUCOSE, FASTING 443 MG/DL (60-100); POTASSIUM SERUM 5.1 MMOL/L (3.5-5.1); SODIUM LEVEL 136 MMOL/L (136-145)
[2023-12-09] MEDS: INSULIN LISPRO (NovoLOG) PER UNIT SC SCH (08:17)
[2023-12-09] MEDS: LEVEMIR (INSULIN DETEMIR) 1 UNITS/0.01ML SC SCH (09:03)
[2023-12-09] MEDS ORDERED: PEN-308 SC (09:19)
[2023-12-09] MEDS ORDERED: INSU100I48 SQ (09:19)
[2023-12-09] MEDS ORDERED: ADME100I2 SC (12:07)
[2023-12-09] MEDS: INSULIN LISPRO (NovoLOG) PER UNIT SC ONE (13:00)
[2023-12-09] MEDS: LEVEMIR (INSULIN DETEMIR) 1 UNITS/0.01ML SC ONE (14:02)
[2023-12-09 15:04] VITALS: BP 115/77; TEMP 98.4; O2SAT 97
[2023-12-09] MEDS ORDERED: BASA100I SC (19:35)
[2023-12-09] MEDS ORDERED: ADME100I SC (19:35)
[2023-12-09] MEDS ORDERED: INSU1MIS20 SC (19:35)
[2023-12-09 20:29] VITALS: BP 117/78; TEMP 98.1; O2SAT 97
[2023-12-10 06:00] LABS: BASO % 0.6 % (0.0-1.0); EOS # 0.1 10^3/uL (0.0-0.5); EOS % 2.7 % (0.0-3.0); HEMATOCRIT 32.7 % (42.0-52.0); HEMOGLOBIN 11.1 g/dl (13.5-17.5); LYMPH # 1.4 10^3/uL (1.5-5.0); LYMPH % 28.6 % (24.0-44.0); MEAN CORPUSCULAR HGB CONC 33.9 g/dl (32.0-36.5); MEAN CORPUSCULAR VOLUME 85.4 fl (80.0-96.0); MONO # 0.4 10^3/uL (0.0-0.8); MONO % 8.4 % (2.0-8.0); NEUTROPHILS # 2.8 10^3/uL (1.5-8.5); NEUTROPHILS % 59.7 % (36.0-66.0); PLATELET COUNT, AUTOMATED 154 10^3/uL (150-450); RED BLOOD COUNT 3.83 10^6/uL (4.30-6.10); WHITE BLOOD COUNT 4.8 10^3/uL (4.0-10.0)
[2023-12-10 06:29] LABS: BLOOD UREA NITROGEN 22 MG/DL (9-23); CALCIUM LEVEL 9.5 MG/DL (8.5-10.1); CARBON DIOXIDE LEVEL 29 MMOL/L (20-31); CHLORIDE LEVEL 104 MMOL/L (98-107); CREATININE FOR GFR 1.05 MG/DL (0.70-1.30); GLOMERULAR FILTRATION RATE > 60.0 (>60); GLUCOSE, FASTING 247 MG/DL (60-100); POTASSIUM SERUM 4.2 MMOL/L (3.5-5.1); SODIUM LEVEL 141 MMOL/L (136-145)
[2023-12-10 06:41] VITALS: BP 134/95; TEMP 97.9; O2SAT 97
[2023-12-10] MEDS: INSULIN LISPRO (NovoLOG) PER UNIT SC SCH ×3 (08:19→12:25)
[2023-12-10] MEDS: LEVEMIR (INSULIN DETEMIR) 1 UNITS/0.01ML SC SCH (08:21)
[2023-12-10] MEDS ORDERED: LEVEMIR (INSULIN DETEMIR) 1 UNITS/0.01ML SC SCH (09:00)
[2023-12-10] MEDS ORDERED: INSULIN LISPRO (NovoLOG) PER UNIT SC SCH ×2 (17:30)
[2023-12-11] MEDS ORDERED: INSULIN LISPRO (NovoLOG) PER UNIT SC SCH ×2 (07:30→12:00)
== END 2023-12-10 16:05 | disposition home or self-care (01) | DRG 919 ==
LOC: M ED 21:01 → M ED INP 12-06 01:51 → ENRESERV 12-06 04:01 → M ICU 12-06 04:35 → M MS4PR 12-07 10:14 → M MS5PR 12-08 21:24
PROVIDERS: ADMIT Internal Medicine Pulmonary Disease; ATTEND Internal Medicine Nephrology
DX: T85.694A Other mechanical complication of insulin pump, initial encounter (principal); G93.41 Metabolic encephalopathy; E10.10 Type 1 diabetes mellitus with ketoacidosis without coma; E87.0 Hyperosmolality and hypernatremia; N17.9 Acute kidney failure, unspecified; F11.23 Opioid dependence with withdrawal; E10.319 Type 1 diabetes mellitus with unspecified diabetic retinopathy without macular edema; E10.43 Type 1 diabetes mellitus with diabetic autonomic (poly)neuropathy; K21.9 Gastro-esophageal reflux disease without esophagitis; D64.9 Anemia, unspecified; Z89.511 Acquired absence of right leg below knee; Z89.422 Acquired absence of other left toe(s); M79.10 Myalgia, unspecified site; F12.90 Cannabis use, unspecified, uncomplicated; M54.59 Other low back pain; F41.9 Anxiety disorder, unspecified; N52.9 Male erectile dysfunction, unspecified; F32.A Depression, unspecified; Z79.4 Long term (current) use of insulin; Z79.899 Other long term (current) drug therapy; Z88.0 Allergy status to penicillin; Z88.8 Allergy status to other drugs, medicaments and biological substances; Y84.8 Other medical procedures as the cause of abnormal reaction of the patient, or of later complication, without mention of misadventure at the time of the procedure

== ENCOUNTER 2023-12-28 03:51 | Emergency (ER) | payer MEDICARE, OTHER ==
[~2023-12-28] VITALS: Ht 180.3 cm; Wt 75.0 kg
[~2023-12-28 03:51] MED LIST changes: +ADME100I SC; +GLUC1KIT PO; +HYDR-4433 PO; +METO5TAB2 PO
[2023-12-28 04:26] LABS: VENOUS BASE EXCESS 0.1 (-2.0-2.0); VENOUS HCO3 27.4 MMOL/L (23.0-27.0); VENOUS O2 SATURATION 45.8 % (60.0-80.0); VENOUS PARTIAL PRESSURE CO2 56.7 mmHg (38.0-50.0); VENOUS PARTIAL PRESSURE O2 27.9 mmHg (30.0-50.0); VENOUS PH 7.302 UNITS (7.330-7.430); VENOUS STANDARD HCO3 23.5 MMOL/L; VENOUS TOTAL CO2 29.1 MMOL/L (24.0-28.0)
[2023-12-28] MEDS: NS 1,000 ML IV ONE (04:27)
[2023-12-28 04:31] LABS: BASO # 0.1 10^3/uL (0.0-0.2); BASO % 0.5 % (0.0-1.0); EOS # 0.2 10^3/uL (0.0-0.5); EOS % 2.2 % (0.0-3.0); HEMATOCRIT 37.2 % (42.0-52.0); HEMOGLOBIN 12.3 g/dl (13.5-17.5); LYMPH # 1.2 10^3/uL (1.5-5.0); LYMPH % 11.7 % (24.0-44.0); MEAN CORPUSCULAR HEMOGLOBIN 29.2 pg (27.0-33.0); MEAN CORPUSCULAR HGB CONC 33.1 g/dl (32.0-36.5); MEAN CORPUSCULAR VOLUME 88.4 fl (80.0-96.0); MONO # 0.4 10^3/uL (0.0-0.8); MONO % 4.4 % (2.0-8.0); NEUTROPHILS # 8.2 10^3/uL (1.5-8.5); NEUTROPHILS % 80.9 % (36.0-66.0); PLATELET COUNT, AUTOMATED 266 10^3/uL (150-450); RED BLOOD COUNT 4.21 10^6/uL (4.30-6.10); WHITE BLOOD COUNT 10.1 10^3/uL (4.0-10.0)
[2023-12-28 04:47] LABS: HEMOGLOBIN A1c 8.1 % (4.0-6.0)
[2023-12-28] MEDS ORDERED: HYDR-3719 (04:49)
[2023-12-28] MEDS ORDERED: DOCU100C16 (04:49)
[2023-12-28] MEDS ORDERED: INSU100I24 (04:49)
[2023-12-28] MEDS ORDERED: INSU100V6 (04:49)
[2023-12-28 04:50] LABS: OSMOLALITY SERUM 290 MOSM/KG (275-295)
[2023-12-28 04:55] LABS: CK-MB VALUE MASS 1.7 NG/ML (<3.6); LIPASE 18 U/L (12-53)
[2023-12-28 04:57] LABS: ALBUMIN 3.5 G/DL (3.2-5.2); ALKALINE PHOSPHATASE 90 U/L (46-116); ALT/SGPT 15 U/L (7.0-40); AST/SGOT 20 U/L (<34); BILIRUBIN,DIRECT 0.1 MG/DL (<0.4); BILIRUBIN,TOTAL 0.6 MG/DL (0.3-1.2); BLOOD UREA NITROGEN 11 MG/DL (9-23); CALCIUM LEVEL 8.9 MG/DL (8.5-10.1); CARBON DIOXIDE LEVEL 27 MMOL/L (20-31); CHLORIDE LEVEL 99 MMOL/L (98-107); CREATININE FOR GFR 1.12 MG/DL (0.70-1.30); GLOMERULAR FILTRATION RATE > 60.0 (>60); GLUCOSE, FASTING 207 MG/DL (60-100); MAGNESIUM LEVEL 1.7 MG/DL (1.8-2.4); POTASSIUM SERUM 4.2 MMOL/L (3.5-5.1); SODIUM LEVEL 135 MMOL/L (136-145); TOTAL PROTEIN 7.2 G/DL (5.7-8.2)
[2023-12-28 05:01] LABS: ACETONE/KETONE 0.18 MMOL/L (0.02-0.27)
[2023-12-28 05:24] LABS: CPK CREATINE PHOSPHOKINASE 217 U/L (46-171); MB/CK RELATIVE INDEX 0.78 (< OR =4)
[2023-12-28 06:15] VITALS: TEMP 98.3
[2023-12-28 06:46] VITALS: BP 119/71; O2SAT 96
== END 2023-12-28 07:36 | disposition home or self-care (01) ==
LOC: M ED 03:51 → EDBD 03:51 → M ED 07:36
DX: E10.649 Type 1 diabetes mellitus with hypoglycemia without coma (principal); R00.0 Tachycardia, unspecified; I45.10 Unspecified right bundle-branch block; I45.81 Long QT syndrome; F32.A Depression, unspecified; K21.9 Gastro-esophageal reflux disease without esophagitis; K59.00 Constipation, unspecified; Z88.0 Allergy status to penicillin; Z88.1 Allergy status to other antibiotic agents; Z79.4 Long term (current) use of insulin; Z79.899 Other long term (current) drug therapy

== ENCOUNTER 2024-03-24 21:57 | Emergency (ER) | payer MEDICARE, OTHER ==
[~2024-03-24] VITALS: Ht 180.3 cm; Wt 82.8 kg
[~2024-03-24 21:57] MED LIST changes: +DOCU100C16; +HYDR-3719; +INSU100I24; +INSU100V6
[2024-03-24 23:07] LABS: VENOUS BASE EXCESS 1.6 (-2.0-2.0); VENOUS HCO3 29.7 MMOL/L (23.0-27.0); VENOUS O2 SATURATION 68.8 % (60.0-80.0); VENOUS PARTIAL PRESSURE O2 40.8 mmHg (30.0-50.0); VENOUS PH 7.285 UNITS (7.330-7.430); VENOUS STANDARD HCO3 25.3 MMOL/L; VENOUS TOTAL CO2 31.7 MMOL/L (24.0-28.0)
[2024-03-24 23:19] LABS: BASO # 0.1 10^3/uL (0.0-0.2); BASO % 0.4 % (0.0-1.0); EOS # 0.1 10^3/uL (0.0-0.5); EOS % 0.7 % (0.0-3.0); HEMATOCRIT 34.6 % (42.0-52.0); HEMOGLOBIN 11.3 g/dl (13.5-17.5); LYMPH # 1.3 10^3/uL (1.5-5.0); LYMPH % 9.4 % (24.0-44.0); MEAN CORPUSCULAR HEMOGLOBIN 29.3 pg (27.0-33.0); MEAN CORPUSCULAR HGB CONC 32.7 g/dl (32.0-36.5); MEAN CORPUSCULAR VOLUME 89.6 fl (80.0-96.0); MONO # 0.5 10^3/uL (0.0-0.8); MONO % 3.8 % (2.0-8.0); NEUTROPHILS # 12.1 10^3/uL (1.5-8.5); NEUTROPHILS % 85.2 % (36.0-66.0); PLATELET COUNT, AUTOMATED 255 10^3/uL (150-450); RED BLOOD COUNT 3.86 10^6/uL (4.30-6.10); WHITE BLOOD COUNT 14.2 10^3/uL (4.0-10.0)
[2024-03-24 23:24] LABS: APPEARANCE, URINE CLEAR (CLEAR); BACTERIA, URINE AUTO NEGATIVE (NEGATIVE); BILIRUBIN, URINE AUTO NEGATIVE (NEGATIVE); BLOOD, URINE BLOOD NEGATIVE (NEGATIVE); COLOR, URINE STRAW (YELLOW); GLUCOSE, URINE (UA) AUTO 3+ mg/dL (NEGATIVE); KETONE, URINE AUTO NEGATIVE (NEGATIVE); LEUKOCYTE ESTERASE, URINE AUTO NEGATIVE (NEGATIVE); NITRITE, URINE AUTO NEGATIVE (NEGATIVE); PROTEIN, URINE AUTO NEGATIVE (NEGATIVE); RBC, URINE AUTO 0 /HPF (0-3); SPECIFIC GRAVITY URINE AUTO 1.007 (1.002-1.035); SQUAMOUS EPITHELIAL CELL UR AU 0 /HPF (0-6); UROBILINOGEN, URINE AUTO 0.2 mg/dL (0.0-2.0); WBC, URINE AUTO 0 /HPF (0-3)
[2024-03-24 23:34] LABS: ETHYL ALCOHOL (ETHANOL) < 0.003 % (0.000-0.010)
[2024-03-24 23:38] LABS: ALBUMIN 3.5 G/DL (3.2-5.2); ALKALINE PHOSPHATASE 45 U/L (46-116); ALT/SGPT 18 U/L (7.0-40); AST/SGOT 54 U/L (<34); BILIRUBIN,DIRECT 0.1 MG/DL (<0.4); BILIRUBIN,TOTAL 0.6 MG/DL (0.3-1.2); MAGNESIUM LEVEL 1.5 MG/DL (1.8-2.4); TOTAL PROTEIN 7.3 G/DL (5.7-8.2)
[2024-03-24] MEDS: NS 1,000 ML IV ONE (23:39)
[2024-03-24] MEDS: ANEXSIA, NORCO 7.5MG/325MG TABLET(HYDROCODONE/APAP) PO ONE (23:41)
[2024-03-24 23:45] LABS: AMPHETAMINES LEVEL URINE NEGATIVE (NEGATIVE); BARBITURATES URINE NEGATIVE (NEGATIVE); BENZODIAZEPINES URINE NEGATIVE (NEGATIVE); CANNABINOIDS URINE NEGATIVE (NEGATIVE); COCAINE METABOLITE URINE NEGATIVE (NEGATIVE); METHADONE URINE NEGATIVE (NEGATIVE); PHENCYCLIDINE URINE NEGATIVE (NEGATIVE)
[2024-03-24 23:46] LABS: OPIATES URINE POSITIVE (NEGATIVE)
[2024-03-25 00:23] LABS: HEMOGLOBIN A1c 7.5 % (4.0-6.0)
[2024-03-25 00:30] VITALS: BP 154/97
[2024-03-25] MEDS: MAGNESIUM OXIDE 400MG TAB (MAG-OX) PO ONE (00:36)
[2024-03-25 00:50] VITALS: TEMP 98.1; O2SAT 99
== END 2024-03-25 01:01 | disposition home or self-care (01) ==
LOC: EDBD 21:57 → M ED 21:57
DX: E10.649 Type 1 diabetes mellitus with hypoglycemia without coma (principal); G40.89 Other seizures; R00.0 Tachycardia, unspecified; I45.10 Unspecified right bundle-branch block; F41.9 Anxiety disorder, unspecified; G47.33 Obstructive sleep apnea (adult) (pediatric); Z86.79 Personal history of other diseases of the circulatory system; Z88.0 Allergy status to penicillin; Z88.1 Allergy status to other antibiotic agents; Z79.899 Other long term (current) drug therapy

== ENCOUNTER 2024-08-30 15:08 | Emergency (ER) | payer MEDICARE ==
[~2024-08-30] VITALS: Ht 180.3 cm; Wt 82.4 kg
[~2024-08-30 15:08] MED LIST changes: +GABA-1172 PO; -GABA-282 PO; -MIDO10TA PO; +MIDO10TA3 PO
[2024-08-30 17:13] LABS: BASO % 0.2 % (0.0-1.0); EOS % 0.2 % (0.0-3.0); HEMATOCRIT 28.8 % (42.0-52.0); HEMOGLOBIN 9.4 g/dl (13.5-17.5); LYMPH # 0.7 10^3/uL (1.5-5.0); LYMPH % 5.4 % (24.0-44.0); MEAN CORPUSCULAR HEMOGLOBIN 29.5 pg (27.0-33.0); MEAN CORPUSCULAR HGB CONC 32.6 g/dl (32.0-36.5); MEAN CORPUSCULAR VOLUME 90.3 fl (80.0-96.0); MONO # 0.9 10^3/uL (0.0-0.8); MONO % 7.3 % (2.0-8.0); NEUTROPHILS # 11.1 10^3/uL (1.5-8.5); NEUTROPHILS % 86.1 % (36.0-66.0); PLATELET COUNT, AUTOMATED 334 10^3/uL (150-450); RED BLOOD COUNT 3.19 10^6/uL (4.30-6.10); WHITE BLOOD COUNT 12.9 10^3/uL (4.0-10.0)
[2024-08-30 17:41] LABS: CALCIUM LEVEL 9.6 MG/DL (8.5-10.1); CREATININE FOR GFR 1.5 MG/DL (0.70-1.30); GLOMERULAR FILTRATION RATE 54.4 (>60); POTASSIUM SERUM 3.9 MMOL/L (3.5-5.1)
[2024-08-30] MEDS: PERCOCET 5MG/325MG TAB PO ONE (17:50)
[2024-08-30] MEDS: DALBAVANCIN 1,500 MG in D5W 250 ML IV ONE (18:56)
[2024-08-30] MEDS ORDERED: HYDR-3713 PO (19:29)
[2024-08-30 19:36] VITALS: BP 107/64; TEMP 100.3; O2SAT 96
== END 2024-08-30 19:42 | disposition home or self-care (01) ==
LOC: M ED 15:08
DX: L03.116 Cellulitis of left lower limb (principal); K21.9 Gastro-esophageal reflux disease without esophagitis; E11.9 Type 2 diabetes mellitus without complications; M54.50 Low back pain, unspecified; Z88.0 Allergy status to penicillin; Z88.1 Allergy status to other antibiotic agents; Z79.2 Long term (current) use of antibiotics; Z79.4 Long term (current) use of insulin; Z79.899 Other long term (current) drug therapy; Z86.718 Personal history of other venous thrombosis and embolism; Z86.79 Personal history of other diseases of the circulatory system
CPT/HCPCS: 36415; 73630; 80048; 83605; 85025; 87040; 87070; 87077; 87186; 96365; 99284; J0875

== ENCOUNTER → 2024-08-31 | Outpatient (REF) | payer MEDICARE, OTHER, MEDICAID | LOC: M LAB REF 12:17 | PROVIDERS: ATTEND Podiatrist Foot & Ankle Surgery | DX: L03.116 Cellulitis of left lower limb (principal) ==

== ENCOUNTER 2024-09-20 07:15 | Day surgery (SDC) | payer MEDICARE, OTHER ==
[~2024-09-20] VITALS: Ht 180.3 cm; Wt 86.0 kg
[~2024-09-20 07:15] MED LIST changes: +FAMO40TA3 PO; +MIDAZOLAM INJ 2MG/2ML VIAL As Ordered ONE; +PHENYLEPHRINE 10% OPHTH SOL 5ML OD PRN; +fentaNYL 100 MCG/2 ML INJECTION As Ordered ONE
[2024-09-20] MEDS: CYCLOPENTOLATE 1% OPHTH SOLN 2ML BTL OD SCH (07:35)
[2024-09-20] MEDS: LIDOCAINE 3.5 % 1ML OPHTH TOPICAL GEL OU ONE (07:35)
[2024-09-20] MEDS: PHENYLEPHRINE 2.5% OPHTH SOL 2ML OD SCH (07:35)
[2024-09-20] MEDS: TROPICAMIDE 1% OPHTH SOLN 15ML OD SCH (07:35)
[2024-09-20] MEDS: OFLOXACIN 0.3 % (OCUFLOX) OPTH SOL 5ML OD ONE (07:35)
[2024-09-20] MEDS: LIDOCAINE 1% SDV 5ML VIAL As Ordered ONE (08:33)
[2024-09-20] MEDS: BSS IRRIG/VANCO(10MG)/TOBRA(5MG)/EPINEPH(1:1000-0.5CC)500ML BAG-ORONLY As Ordered ONE (08:35)
[2024-09-20] MEDS: CEFUROXIME 1MG/0.1ML INTRACAMERAL INJ As Ordered ONE (08:35)
[2024-09-20 08:47] VITALS: BP 120/71; TEMP 97.5; O2SAT 98
== END 2024-09-20 09:19 | disposition home or self-care (01) ==
LOC: M SDC 07:15
PROVIDERS: ATTEND Ophthalmology
DX: H25.11 Age-related nuclear cataract, right eye (principal); E11.9 Type 2 diabetes mellitus without complications; K21.9 Gastro-esophageal reflux disease without esophagitis; D64.9 Anemia, unspecified; Z79.899 Other long term (current) drug therapy; Z88.0 Allergy status to penicillin; Z88.1 Allergy status to other antibiotic agents
CPT/HCPCS: 66984; J0697; J2250; J3010; V2632

== ENCOUNTER 2024-09-27 06:18 | Day surgery (SDC) | payer MEDICARE, OTHER ==
[~2024-09-27] VITALS: Ht 180.3 cm; Wt 84.3 kg
[~2024-09-27 06:18] MED LIST changes: -MIDAZOLAM INJ 2MG/2ML VIAL As Ordered ONE; -PHENYLEPHRINE 10% OPHTH SOL 5ML OD PRN; +PHENYLEPHRINE 10% OPHTH SOL 5ML OS PRN; -fentaNYL 100 MCG/2 ML INJECTION As Ordered ONE
[2024-09-27] MEDS ORDERED: MIDAZOLAM INJ 2MG/2ML VIAL As Ordered ONE (07:09)
[2024-09-27] MEDS: PHENYLEPHRINE 2.5% OPHTH SOL 2ML OS SCH (07:20)
[2024-09-27] MEDS: LIDOCAINE 3.5 % 1ML OPHTH TOPICAL GEL OU ONE (07:20)
[2024-09-27] MEDS: OFLOXACIN 0.3 % (OCUFLOX) OPTH SOL 5ML OS ONE (07:20)
[2024-09-27] MEDS: CYCLOPENTOLATE 1% OPHTH SOLN 2ML BTL OS SCH (07:20)
[2024-09-27] MEDS: TROPICAMIDE 1% OPHTH SOLN 15ML OS SCH (07:20)
[2024-09-27] MEDS ORDERED: fentaNYL 100 MCG/2 ML INJECTION As Ordered ONE (07:37)
[2024-09-27] MEDS: BSS IRRIG/VANCO(10MG)/TOBRA(5MG)/EPINEPH(1:1000-0.5CC)500ML BAG-ORONLY As Ordered ONE (08:19)
[2024-09-27] MEDS: LIDOCAINE 1% SDV 5ML VIAL As Ordered ONE (08:19)
[2024-09-27] MEDS: CEFUROXIME 1MG/0.1ML INTRACAMERAL INJ As Ordered ONE (08:19)
[2024-09-27 08:27] VITALS: BP 110/69; TEMP 97.4; O2SAT 98
== END 2024-09-27 09:00 | disposition home or self-care (01) ==
LOC: M SDC 06:18
PROVIDERS: ATTEND Ophthalmology
DX: E10.36 Type 1 diabetes mellitus with diabetic cataract (principal); H25.12 Age-related nuclear cataract, left eye; E10.40 Type 1 diabetes mellitus with diabetic neuropathy, unspecified; Z79.899 Other long term (current) drug therapy; Z79.4 Long term (current) use of insulin; Z88.0 Allergy status to penicillin; Z88.1 Allergy status to other antibiotic agents
CPT/HCPCS: 66984; J0697; J2250; J3010; V2632

== ENCOUNTER → 2024-10-05 | Outpatient (REF) | payer MEDICARE, MEDICAID ==
[~2024-10-05] MED LIST changes: -PHENYLEPHRINE 10% OPHTH SOL 5ML OS PRN
[2024-10-05 18:25] LABS: HEMOGLOBIN A1c 7.4 % (4.0-6.0)
== END ==
LOC: M SFHCWOUN 16:01
PROVIDERS: ATTEND Surgery
DX: E10.621 Type 1 diabetes mellitus with foot ulcer (principal)

== ENCOUNTER → 2024-11-01 | Outpatient (REF) | payer MEDICARE, MEDICAID ==
[~2024-11-01] MED LIST changes: +DOCU100C16 PO; +DORZ2SOL5 OD; +PROM25TA12 PO; +PRUC2TAB2 PO
[2024-11-01 18:40] LABS: BASO % 0.5 % (0.0-1.0); EOS # 0.1 10^3/uL (0.0-0.5); HEMATOCRIT 29.4 % (42.0-52.0); LYMPH # 0.8 10^3/uL (1.5-5.0); LYMPH % 9.5 % (24.0-44.0); MEAN CORPUSCULAR HGB CONC 30.6 g/dl (32.0-36.5); MEAN CORPUSCULAR VOLUME 91.3 fl (80.0-96.0); MONO # 0.5 10^3/uL (0.0-0.8); MONO % 6.2 % (2.0-8.0); NEUTROPHILS # 7.1 10^3/uL (1.5-8.5); NEUTROPHILS % 82.5 % (36.0-66.0); PLATELET COUNT, AUTOMATED 400 10^3/uL (150-450); RED BLOOD COUNT 3.22 10^6/uL (4.30-6.10); WHITE BLOOD COUNT 8.7 10^3/uL (4.0-10.0)
[2024-11-01 20:11] LABS: BLOOD UREA NITROGEN 10 MG/DL (9-23); CALCIUM LEVEL 8.7 MG/DL (8.5-10.1); CARBON DIOXIDE LEVEL 28 MMOL/L (20-31); CHLORIDE LEVEL 106 MMOL/L (98-107); CREATININE FOR GFR 1.13 MG/DL (0.70-1.30); GLOMERULAR FILTRATION RATE > 60.0 (>60); GLUCOSE, FASTING 142 MG/DL (60-100); POTASSIUM SERUM 6.3 MMOL/L (3.5-5.1); SODIUM LEVEL 143 MMOL/L (136-145)
== END ==
LOC: M LAB REF 17:49
PROVIDERS: ATTEND Family Medicine Addiction Medicine
DX: E10.9 Type 1 diabetes mellitus without complications (principal)

== ENCOUNTER → 2024-11-06 | Outpatient (REF) | payer MEDICARE, MEDICAID ==
[~2024-11-06] MED LIST changes: +INSU100V3 INJ
[2024-11-06 13:47] LABS: BLOOD UREA NITROGEN 14 MG/DL (9-23); CARBON DIOXIDE LEVEL 32 MMOL/L (20-31); CHLORIDE LEVEL 104 MMOL/L (98-107); CREATININE FOR GFR 1.15 MG/DL (0.70-1.30); GLOMERULAR FILTRATION RATE > 60.0 (>60); GLUCOSE, FASTING 130 MG/DL (60-100); SODIUM LEVEL 141 MMOL/L (136-145)
== END ==
LOC: M LAB REF 12:09
PROVIDERS: ATTEND Family Medicine Addiction Medicine
DX: E78.5 Hyperlipidemia, unspecified (principal)

== ENCOUNTER 2024-11-08 06:19 | Inpatient (IN) | payer MEDICARE, MEDICAID ==
[~2024-11-08] VITALS: Ht 180.3 cm; Wt 81.2 kg
[~2024-11-08 06:19] MED LIST changes: -INSU100V3 INJ; +LR 1,000 ML IV SCH; +VANCOMYCIN HCL 1,000 MG, VIAL MATE ADAPTER 1 EACH in NS 250 ML IV ONE
[2024-11-08] MEDS: VANCOMYCIN HCL 1,250 MG, VIAL MATE ADAPTER 1 EACH in NS 250 ML IV ONE (06:45)
[2024-11-08] MEDS ORDERED: LIDOCAINE 2% 100MG/5ML SDV (FOR ANES.) As Ordered ONE (06:53)
[2024-11-08] MEDS ORDERED: propofoL 500 MG/50 ML VIAL As Ordered ONE (06:54)
[2024-11-08] MEDS ORDERED: fentaNYL 100 MCG/2 ML INJECTION As Ordered ONE (06:54)
[2024-11-08] MEDS ORDERED: MIDAZOLAM INJ 2MG/2ML VIAL As Ordered ONE (06:54)
[2024-11-08] MEDS: LIDOCAINE 1% MDV 20ML VIAL As Ordered ONE (07:40)
[2024-11-08] MEDS ORDERED: PHENYLEPHRINE 10MG/ML 1ML VIAL As Ordered ONE (08:04)
[2024-11-08] MEDS ORDERED: fentaNYL 100 MCG/2 ML INJECTION IV PRN (09:00)
[2024-11-08] MEDS ORDERED: ONDANSETRON 4MG 2ML VIAL IV PRN (09:00)
[2024-11-08] MEDS: oxyCODONE 5MG TAB PO PRN (09:32)
[2024-11-08 11:51] VITALS: BP 127/69; TEMP 97.9; O2SAT 96
[2024-11-08] MEDS ORDERED: INSU100V3 INJ (22:31)
== END 2024-11-08 11:53 | disposition home or self-care (01) | DRG 617 ==
LOC: UNDOADMIN 06:19 → M SDC 06:19 → M OR 06:19 → EDSTATUS 07:30 → M SDC 11:53 → UNDODISIN 11:53
PROVIDERS: ADMIT Podiatrist Foot & Ankle Surgery; ATTEND Podiatrist Foot & Ankle Surgery
PROC: 0Y6N0Z0 Detachment at Left Foot, Complete, Open Approach (ICD-10-PCS; principal; 2024-11-08 07:30)
DX: E11.621 Type 2 diabetes mellitus with foot ulcer (principal); L97.929 Non-pressure chronic ulcer of unspecified part of left lower leg with unspecified severity; M86.272 Subacute osteomyelitis, left ankle and foot; E11.40 Type 2 diabetes mellitus with diabetic neuropathy, unspecified

== ENCOUNTER 2024-11-08 20:28 | Inpatient (IN) | payer MEDICARE, MEDICAID ==
[~2024-11-08] VITALS: Ht 180.3 cm; Wt 75.0 kg
[~2024-11-08 20:28] MED LIST changes: -LR 1,000 ML IV SCH; -VANCOMYCIN HCL 1,000 MG, VIAL MATE ADAPTER 1 EACH in NS 250 ML IV ONE
[2024-11-08] MEDS: MORPHINE 4 MG/ML 1ML VIAL IV PRN (21:10)
[2024-11-08] MEDS: NS (Normal Saline) 0.9% 1,000 ML IV ONE (21:11)
[2024-11-08 21:16] LABS: BASO % 0.5 % (0.0-1.0); EOS # 0.1 10^3/uL (0.0-0.5); EOS % 1.2 % (0.0-3.0); HEMATOCRIT 25.3 % (42.0-52.0); HEMOGLOBIN 8.2 g/dl (13.5-17.5); LYMPH # 0.9 10^3/uL (1.5-5.0); LYMPH % 15.1 % (24.0-44.0); MEAN CORPUSCULAR HEMOGLOBIN 28.8 pg (27.0-33.0); MEAN CORPUSCULAR HGB CONC 32.4 g/dl (32.0-36.5); MEAN CORPUSCULAR VOLUME 88.8 fl (80.0-96.0); MONO # 0.6 10^3/uL (0.0-0.8); MONO % 10.5 % (2.0-8.0); NEUTROPHILS # 4.3 10^3/uL (1.5-8.5); NEUTROPHILS % 72.5 % (36.0-66.0); PLATELET COUNT, AUTOMATED 406 10^3/uL (150-450); RED BLOOD COUNT 2.85 10^6/uL (4.30-6.10); WHITE BLOOD COUNT 5.9 10^3/uL (4.0-10.0)
[2024-11-08 21:34] LABS: INR 0.94; PARTIAL THROMBOPLASTIN TIME 35.6 SECONDS (24.8-34.2); PROTHROMBIN TIME 12.9 SECONDS (12.5-14.5)
[2024-11-08 21:40] LABS: BLOOD UREA NITROGEN 11 MG/DL (9-23); CALCIUM LEVEL 8.2 MG/DL (8.5-10.1); CARBON DIOXIDE LEVEL 29 MMOL/L (20-31); CHLORIDE LEVEL 104 MMOL/L (98-107); CREATININE FOR GFR 1.16 MG/DL (0.70-1.30); GLOMERULAR FILTRATION RATE > 60.0 (>60); GLUCOSE, FASTING 107 MG/DL (60-100); POTASSIUM SERUM 3.8 MMOL/L (3.5-5.1); SODIUM LEVEL 140 MMOL/L (136-145)
[2024-11-08] MEDS ORDERED: INSU100V3 INJ (22:31)
[2024-11-08] MEDS ORDERED: HOME MED LIST COMPLETE! XX SCH (22:35)
[2024-11-08] MEDS ORDERED: MIRALAX *UNIT DOSE* 17GM PACKET PO PRN (23:15)
[2024-11-08] MEDS ORDERED: PROMETHAZINE 25 MG TAB PO PRN (23:15)
[2024-11-08] MEDS ORDERED: oxyCODONE 5MG TAB PO PRN (23:15)
[2024-11-08] MEDS ORDERED: MOM 30ML SUSPENSION UDC PO PRN (23:25)
[2024-11-08] MEDS ORDERED: MAALOX 30 ML SUSP *UDC PO PRN (23:25)
[2024-11-08] MEDS: VENLAFAXINE **XR** 75MG CAPSULE PO SCH (23:38)
[2024-11-08] MEDS: QUEtiapine FUMARATE 25 MG TAB PO SCH (23:38)
[2024-11-08] MEDS: FAMOTIDINE 20 MG TAB PO SCH (23:38)
[2024-11-08] MEDS: ACETAMINOPHEN 325 MG TAB PO PRN (23:38)
[2024-11-08] MEDS: PREGABALIN 75 MG CAP(LYRICA) PO SCH (23:38)
[2024-11-08] MEDS: oxyCODONE 5MG TAB PO PRN (23:39)
[2024-11-09] VITALS (18 sets, daily range): BP systolic 100–149; BP diastolic 57–88; TEMP 98.2–100.8; O2SAT 93–100
[2024-11-09] MEDS: MORPHINE 2 MG/ML 1ML VIAL IV PRN (01:18)
[2024-11-09] MEDS: MIDODRINE 5 MG TAB PO SCH (07:20)
[2024-11-09] MEDS ORDERED: ENTER DRUG NAME HERE (PATIENT'S OWN MED) SQ SA SCH (07:30)
[2024-11-09] MEDS: DOCUSATE SODIUM 100MG CAPSULE PO SCH ×2 (08:12→21:30)
[2024-11-09] MEDS: ACETAMINOPHEN 325 MG TAB PO SCH (12:00)
[2024-11-09 14:29] LABS: BASO % 0.7 % (0.0-1.0); EOS # 0.1 10^3/uL (0.0-0.5); EOS % 1.4 % (0.0-3.0); HEMATOCRIT 29.7 % (42.0-52.0); LYMPH # 0.8 10^3/uL (1.5-5.0); LYMPH % 14.6 % (24.0-44.0); MEAN CORPUSCULAR HEMOGLOBIN 28.9 pg (27.0-33.0); MEAN CORPUSCULAR HGB CONC 32.7 g/dl (32.0-36.5); MEAN CORPUSCULAR VOLUME 88.4 fl (80.0-96.0); MONO # 0.5 10^3/uL (0.0-0.8); MONO % 9.5 % (2.0-8.0); NEUTROPHILS # 4.2 10^3/uL (1.5-8.5); NEUTROPHILS % 73.6 % (36.0-66.0); PLATELET COUNT, AUTOMATED 340 10^3/uL (150-450); RED BLOOD COUNT 3.36 10^6/uL (4.30-6.10); WHITE BLOOD COUNT 5.7 10^3/uL (4.0-10.0)
[2024-11-09 14:31] LABS: HEMOGLOBIN 9.7 g/dl (13.5-17.5)
[2024-11-09 15:03] LABS: BLOOD UREA NITROGEN 9 MG/DL (9-23); CALCIUM LEVEL 8.5 MG/DL (8.5-10.1); CARBON DIOXIDE LEVEL 30 MMOL/L (20-31); CHLORIDE LEVEL 102 MMOL/L (98-107); CREATININE FOR GFR 0.96 MG/DL (0.70-1.30); GLOMERULAR FILTRATION RATE > 60.0 (>60); GLUCOSE, FASTING 166 MG/DL (60-100); POTASSIUM SERUM 4.2 MMOL/L (3.5-5.1); SODIUM LEVEL 140 MMOL/L (136-145)
[2024-11-09] MEDS: MAGNESIUM OXIDE 400MG TAB (MAG-OX) PO SCH (15:26)
[2024-11-09] MEDS: MAG SULF 1GM/100ML (MAG RUN) 1 GM in IV 1 EA IV SCH (15:26)
[2024-11-09] MEDS: KETOROLAC 30 MG/ML 1ML VIAL IV SCH (15:26)
[2024-11-09] MEDS: UNRESOLVED PATIENT OWN MED ORDER XX SCH (21:00)
[2024-11-09] MEDS: SENNA 8.6 MG TAB (SENOKOT) PO SCH (21:30)
[2024-11-10 04:25] VITALS: BP 134/80; TEMP 97.4; O2SAT 94
[2024-11-10 05:37] LABS: BASO % 0.9 % (0.0-1.0); EOS # 0.1 10^3/uL (0.0-0.5); EOS % 3.1 % (0.0-3.0); HEMATOCRIT 27.8 % (42.0-52.0); LYMPH % 31.3 % (24.0-44.0); MEAN CORPUSCULAR HEMOGLOBIN 27.9 pg (27.0-33.0); MEAN CORPUSCULAR HGB CONC 32.4 g/dl (32.0-36.5); MEAN CORPUSCULAR VOLUME 86.1 fl (80.0-96.0); MONO # 0.4 10^3/uL (0.0-0.8); MONO % 11.6 % (2.0-8.0); NEUTROPHILS # 1.7 10^3/uL (1.5-8.5); NEUTROPHILS % 52.8 % (36.0-66.0); PLATELET COUNT, AUTOMATED 308 10^3/uL (150-450); RED BLOOD COUNT 3.23 10^6/uL (4.30-6.10); WHITE BLOOD COUNT 3.2 10^3/uL (4.0-10.0)
[2024-11-10 05:53] LABS: BLOOD UREA NITROGEN 9 MG/DL (9-23); CALCIUM LEVEL 8.5 MG/DL (8.5-10.1); CARBON DIOXIDE LEVEL 29 MMOL/L (20-31); CHLORIDE LEVEL 106 MMOL/L (98-107); CREATININE FOR GFR 0.95 MG/DL (0.70-1.30); GLOMERULAR FILTRATION RATE > 60.0 (>60); GLUCOSE, FASTING 139 MG/DL (60-100); POTASSIUM SERUM 3.9 MMOL/L (3.5-5.1); SODIUM LEVEL 143 MMOL/L (136-145)
[2024-11-10 07:59] VITALS: BP 157/90; TEMP 97.5; O2SAT 98
[2024-11-10] MEDS: oxyCODONE 5MG TAB PO ONE (14:29)
[2024-11-10 16:04] VITALS: BP 169/99; TEMP 98; O2SAT 97
[2024-11-10 20:14] VITALS: BP 126/86; TEMP 98.3; O2SAT 98
[2024-11-10] MEDS: oxyCODONE 5MG TAB PO PRN (21:19)
[2024-11-11 04:20] VITALS: BP 145/88; TEMP 97.5; O2SAT 93
[2024-11-11 08:17] VITALS: BP 174/98; TEMP 97.7; O2SAT 97
[2024-11-11 08:28] LABS: BASO % 1.4 % (0.0-1.0); EOS # 0.1 10^3/uL (0.0-0.5); EOS % 3.6 % (0.0-3.0); HEMATOCRIT 29.1 % (42.0-52.0); HEMOGLOBIN 9.3 g/dl (13.5-17.5); LYMPH # 0.9 10^3/uL (1.5-5.0); LYMPH % 32.5 % (24.0-44.0); MEAN CORPUSCULAR HEMOGLOBIN 28.1 pg (27.0-33.0); MEAN CORPUSCULAR VOLUME 87.9 fl (80.0-96.0); MONO # 0.3 10^3/uL (0.0-0.8); MONO % 9.3 % (2.0-8.0); NEUTROPHILS # 1.5 10^3/uL (1.5-8.5); NEUTROPHILS % 52.8 % (36.0-66.0); PLATELET COUNT, AUTOMATED 334 10^3/uL (150-450); RED BLOOD COUNT 3.31 10^6/uL (4.30-6.10); WHITE BLOOD COUNT 2.8 10^3/uL (4.0-10.0)
[2024-11-11 08:53] LABS: BLOOD UREA NITROGEN 14 MG/DL (9-23); CALCIUM LEVEL 8.7 MG/DL (8.5-10.1); CARBON DIOXIDE LEVEL 32 MMOL/L (20-31); CHLORIDE LEVEL 102 MMOL/L (98-107); CREATININE FOR GFR 0.99 MG/DL (0.70-1.30); GLOMERULAR FILTRATION RATE > 60.0 (>60); GLUCOSE, FASTING 178 MG/DL (60-100); POTASSIUM SERUM 4.5 MMOL/L (3.5-5.1); SODIUM LEVEL 140 MMOL/L (136-145)
[2024-11-11 11:17] VITALS: BP 150/90
[2024-11-11 16:10] VITALS: BP 158/82; TEMP 98.2; O2SAT 97
[2024-11-11 19:54] VITALS: BP 134/88; TEMP 98.9; O2SAT 96
[2024-11-12 04:28] VITALS: BP 129/83; TEMP 98.7; O2SAT 93
[2024-11-12 07:43] VITALS: BP 138/87; TEMP 97.6; O2SAT 94
[2024-11-12 08:01] LABS: BASO % 1.1 % (0.0-1.0); EOS # 0.1 10^3/uL (0.0-0.5); EOS % 3.1 % (0.0-3.0); HEMOGLOBIN 9.3 g/dl (13.5-17.5); LYMPH # 1.2 10^3/uL (1.5-5.0); LYMPH % 32.7 % (24.0-44.0); MEAN CORPUSCULAR HEMOGLOBIN 27.7 pg (27.0-33.0); MEAN CORPUSCULAR HGB CONC 32.1 g/dl (32.0-36.5); MEAN CORPUSCULAR VOLUME 86.3 fl (80.0-96.0); MONO # 0.4 10^3/uL (0.0-0.8); NEUTROPHILS # 1.9 10^3/uL (1.5-8.5); NEUTROPHILS % 52.1 % (36.0-66.0); PLATELET COUNT, AUTOMATED 337 10^3/uL (150-450); RED BLOOD COUNT 3.36 10^6/uL (4.30-6.10); WHITE BLOOD COUNT 3.6 10^3/uL (4.0-10.0)
[2024-11-12 08:26] LABS: BLOOD UREA NITROGEN 13 MG/DL (9-23); CALCIUM LEVEL 8.8 MG/DL (8.5-10.1); CARBON DIOXIDE LEVEL 32 MMOL/L (20-31); CHLORIDE LEVEL 103 MMOL/L (98-107); CREATININE FOR GFR 1.05 MG/DL (0.70-1.30); GLOMERULAR FILTRATION RATE > 60.0 (>60); GLUCOSE, FASTING 159 MG/DL (60-100); POTASSIUM SERUM 4.3 MMOL/L (3.5-5.1); SODIUM LEVEL 143 MMOL/L (136-145)
[2024-11-12 16:57] VITALS: BP 159/96; TEMP 98; O2SAT 93
[2024-11-12 19:16] VITALS: BP 124/83; TEMP 98.2; O2SAT 96
[2024-11-13 03:00] VITALS: BP 122/80; TEMP 98.4; O2SAT 97
[2024-11-13 05:52] LABS: EOS # 0.2 10^3/uL (0.0-0.5); EOS % 3.7 % (0.0-3.0); HEMATOCRIT 31.5 % (42.0-52.0); HEMOGLOBIN 9.9 g/dl (13.5-17.5); LYMPH # 1.4 10^3/uL (1.5-5.0); LYMPH % 33.4 % (24.0-44.0); MEAN CORPUSCULAR HEMOGLOBIN 27.4 pg (27.0-33.0); MEAN CORPUSCULAR HGB CONC 31.4 g/dl (32.0-36.5); MEAN CORPUSCULAR VOLUME 87.3 fl (80.0-96.0); MONO # 0.3 10^3/uL (0.0-0.8); MONO % 8.4 % (2.0-8.0); NEUTROPHILS # 2.2 10^3/uL (1.5-8.5); NEUTROPHILS % 53.5 % (36.0-66.0); PLATELET COUNT, AUTOMATED 352 10^3/uL (150-450); RED BLOOD COUNT 3.61 10^6/uL (4.30-6.10); WHITE BLOOD COUNT 4.1 10^3/uL (4.0-10.0)
[2024-11-13 06:11] LABS: BLOOD UREA NITROGEN 15 MG/DL (9-23); CALCIUM LEVEL 9.1 MG/DL (8.5-10.1); CARBON DIOXIDE LEVEL 30 MMOL/L (20-31); CHLORIDE LEVEL 106 MMOL/L (98-107); CREATININE FOR GFR 1.16 MG/DL (0.70-1.30); GLOMERULAR FILTRATION RATE > 60.0 (>60); GLUCOSE, FASTING 151 MG/DL (60-100); POTASSIUM SERUM 4.7 MMOL/L (3.5-5.1); SODIUM LEVEL 142 MMOL/L (136-145)
[2024-11-13 08:16] VITALS: BP 142/88; TEMP 98.1; O2SAT 97
[2024-11-13] MEDS ORDERED: OXYC-517 PO (13:17)
== END 2024-11-13 13:15 | disposition home or self-care (01) | DRG 920 ==
LOC: M ED 20:28 → M ED INP 23:21 → M PCU 11-09 00:42
PROVIDERS: ADMIT Family Medicine; ATTEND Family Medicine
PROC: 30233N1 Transfusion of Nonautologous Red Blood Cells into Peripheral Vein, Percutaneous Approach (ICD-10-PCS; principal; 2024-11-09)
DX: M96.830 Postprocedural hemorrhage of a musculoskeletal structure following a musculoskeletal system procedure (principal); D62 Acute posthemorrhagic anemia; Z79.4 Long term (current) use of insulin; E10.43 Type 1 diabetes mellitus with diabetic autonomic (poly)neuropathy; K21.9 Gastro-esophageal reflux disease without esophagitis; Z89.511 Acquired absence of right leg below knee; K31.84 Gastroparesis; I95.1 Orthostatic hypotension; E10.42 Type 1 diabetes mellitus with diabetic polyneuropathy; G89.29 Other chronic pain; M54.9 Dorsalgia, unspecified; K22.2 Esophageal obstruction; F41.9 Anxiety disorder, unspecified; F32.A Depression, unspecified; F17.229 Nicotine dependence, chewing tobacco, with unspecified nicotine-induced disorders; F12.90 Cannabis use, unspecified, uncomplicated; F11.90 Opioid use, unspecified, uncomplicated; Z98.41 Cataract extraction status, right eye; Z98.42 Cataract extraction status, left eye; Z79.899 Other long term (current) drug therapy; Z88.0 Allergy status to penicillin; Z88.8 Allergy status to other drugs, medicaments and biological substances

== ENCOUNTER → 2024-12-11 | Outpatient (REF) | payer MEDICARE, MEDICAID ==
[~2024-12-11] MED LIST changes: -AMBI5TAB PO; -GLUC1KIT PO; +GLUC1VIA14 PO; +HYDR-3719 PO; +INSU100V3 SC; +ZOLP-532 PO
[2024-12-11 18:02] LABS: HEMATOCRIT 27.5 % (42.0-52.0); HEMOGLOBIN 8.7 g/dl (13.5-17.5); MEAN CORPUSCULAR HEMOGLOBIN 26.7 pg (27.0-33.0); MEAN CORPUSCULAR HGB CONC 31.6 g/dl (32.0-36.5); MEAN CORPUSCULAR VOLUME 84.4 fl (80.0-96.0); PLATELET COUNT, AUTOMATED 402 10^3/uL (150-450); RED BLOOD COUNT 3.26 10^6/uL (4.30-6.10); WHITE BLOOD COUNT 5.6 10^3/uL (4.0-10.0)
== END ==
LOC: M SFHCWOUN 17:04
PROVIDERS: ATTEND Surgery
DX: E10.621 Type 1 diabetes mellitus with foot ulcer (principal)

== ENCOUNTER 2024-12-13 18:05 | Inpatient (IN) | payer MEDICARE, MEDICAID ==
[~2024-12-13] VITALS: Ht 180.3 cm; Wt 77.1 kg
[~2024-12-13 18:05] MED LIST changes: -HYDR-3719 PO
[2024-12-13 18:59] LABS: BASO # 0.1 10^3/uL (0.0-0.2); BASO % 0.5 % (0.0-1.0); EOS # 0.1 10^3/uL (0.0-0.5); EOS % 0.7 % (0.0-3.0); HEMATOCRIT 28.1 % (42.0-52.0); LYMPH # 1.1 10^3/uL (1.5-5.0); LYMPH % 7.5 % (24.0-44.0); MEAN CORPUSCULAR HEMOGLOBIN 26.9 pg (27.0-33.0); MEAN CORPUSCULAR VOLUME 83.9 fl (80.0-96.0); MONO # 1.3 10^3/uL (0.0-0.8); MONO % 8.9 % (2.0-8.0); PLATELET COUNT, AUTOMATED 446 10^3/uL (150-450); RED BLOOD COUNT 3.35 10^6/uL (4.30-6.10); WHITE BLOOD COUNT 14.6 10^3/uL (4.0-10.0)
[2024-12-13 19:13] LABS: INR 1.14; PARTIAL THROMBOPLASTIN TIME 40.1 SECONDS (24.8-34.2); PROTHROMBIN TIME 14.9 SECONDS (12.5-14.5)
[2024-12-13 19:22] LABS: CALCIUM LEVEL 8.4 MG/DL (8.5-10.1); CREATININE FOR GFR 1.36 MG/DL (0.70-1.30); GLOMERULAR FILTRATION RATE 66.2 (>60); POTASSIUM SERUM 4.5 MMOL/L (3.5-5.1)
[2024-12-13] MEDS: ACETAMINOPHEN *IV* 1,000 MG in IV 1 EA IV ONE (22:20)
[2024-12-13] MEDS: fentaNYL 100 MCG/2 ML INJECTION IV ONE (23:56)
[2024-12-14] VITALS (8 sets, daily range): BP systolic 114–128; BP diastolic 78–83; TEMP 98.1–101.4; O2SAT 97–99
[2024-12-14] MEDS: VANCOMYCIN HCL 1,000 MG, VIAL MATE ADAPTER 1 EACH in NS 250 ML IV STA (00:08)
[2024-12-14 00:14] LABS: C REACTIVE PROTEIN QUANTITATIV 23.62 MG/DL (<1.0)
[2024-12-14 00:34] LABS: ALBUMIN 2.4 G/DL (3.2-5.2); ALKALINE PHOSPHATASE 100 U/L (40-129); ALT/SGPT < 9 U/L (7.0-40); AST/SGOT < 8 U/L (<34); BILIRUBIN,DIRECT 0.1 MG/DL (<0.4); BILIRUBIN,TOTAL 0.4 MG/DL (0.3-1.2); TOTAL PROTEIN 7.1 G/DL (5.7-8.2)
[2024-12-14] MEDS ORDERED: HYDR-3719 PO (02:03)
[2024-12-14] MEDS ORDERED: HOME MED LIST COMPLETE! XX SCH (02:05)
[2024-12-14] MEDS: fentaNYL 100 MCG/2 ML INJECTION IV ONE (02:12)
[2024-12-14] MEDS ORDERED: PERCOCET 5MG/325MG TAB PO PRN (04:30)
[2024-12-14] MEDS ORDERED: MORPHINE 2 MG/ML 1ML VIAL IV PRN (04:30)
[2024-12-14] MEDS: NS (Normal Saline) 0.9% 1,000 ML IV SCH (04:58)
[2024-12-14] MEDS: PERCOCET 5MG/325MG TAB PO PRN (05:12)
[2024-12-14 06:00] LABS: ABG BASE EXCESS -5.6 (-2.0-2.0); ABG HCO3 19.1 MMOL/L (22.0-26.0); ABG O2 SATURATION 96.4 % (95.0-99.0); ABG PARTIAL PRESSURE CO2 33.7 mmHg (35.0-45.0); ABG PARTIAL PRESSURE O2 85.9 mmHg (75.0-100.0); ABG STANDARD HCO3 19.8 MMOL/L. (22.0-26.0); ABG TOTAL CO2 20.1 MMOL/L (22.0-29.0); ABG pH (ARTERIAL) 7.371 UNITS (7.350-7.450)
[2024-12-14 06:42] LABS: BASO # 0.1 10^3/uL (0.0-0.2); BASO % 0.4 % (0.0-1.0); EOS # 0.1 10^3/uL (0.0-0.5); EOS % 0.5 % (0.0-3.0); HEMOGLOBIN 8.6 g/dl (13.5-17.5); LYMPH # 1.2 10^3/uL (1.5-5.0); MEAN CORPUSCULAR HEMOGLOBIN 26.6 pg (27.0-33.0); MEAN CORPUSCULAR HGB CONC 31.9 g/dl (32.0-36.5); MEAN CORPUSCULAR VOLUME 83.6 fl (80.0-96.0); MONO # 1.2 10^3/uL (0.0-0.8); MONO % 7.9 % (2.0-8.0); NEUTROPHILS # 12.5 10^3/uL (1.5-8.5); NEUTROPHILS % 82.9 % (36.0-66.0); PLATELET COUNT, AUTOMATED 414 10^3/uL (150-450); RED BLOOD COUNT 3.23 10^6/uL (4.30-6.10); WHITE BLOOD COUNT 15.1 10^3/uL (4.0-10.0)
[2024-12-14] MEDS ORDERED: DEXTROSE 50% 50ML SYRINGE IV PRN (07:40)
[2024-12-14] MEDS ORDERED: GLUCAGON INJ 1MG VIAL SC PRN (07:40)
[2024-12-14] MEDS ORDERED: GLUCOSE 4 GM CHEW PO PRN (07:40)
[2024-12-14] MEDS ORDERED: MIRALAX *UNIT DOSE* 17GM PACKET PO PRN (07:55)
[2024-12-14] MEDS: SENNA 8.6 MG TAB (SENOKOT) PO SCH (08:19)
[2024-12-14] MEDS: VANCOMYCIN HCL 1,000 MG, VIAL MATE ADAPTER 1 EACH in NS 250 ML IV SCH (08:19)
[2024-12-14] MEDS: INSULIN LISPRO (NovoLOG) PER UNIT SC SCH (12:00)
[2024-12-14] MEDS: PIPERACILLIN/TAZOBACTAM SOD 4.5 GM in DEXTROSE 5% (D5W) ADV/MINI-BAG 50 ML IV SCH (13:54)
[2024-12-14] MEDS: HEPARIN SOD (PORCINE) 5000UNITS/ML 1ML VIAL/SYRINGE SQ SCH (13:54)
[2024-12-14] MEDS: ACETAMINOPHEN 500 MG TAB PO SCH (13:55)
[2024-12-14] MEDS: oxyCODONE 5MG TAB PO PRN ×2 (13:55→17:53)
[2024-12-14] MEDS: ONDANSETRON 4MG 2ML VIAL IV PRN (17:55)
[2024-12-14] MEDS: METOCLOPRAMIDE INJ 10MG/2ML VIAL IV SCH (19:58)
[2024-12-14] MEDS ORDERED: INSULIN LISPRO (NovoLOG) PER UNIT SC SCH (21:00)
[2024-12-14] MEDS: CEFEPIME HCL 1 GM in DEXTROSE 5% (D5W) ADV/MINI-BAG 50 ML IV SCH (22:58)
[2024-12-15 03:36] VITALS: BP 133/82; TEMP 99.7; O2SAT 94
[2024-12-15 07:25] LABS: HEMATOCRIT 24.1 % (42.0-52.0); HEMOGLOBIN 7.7 g/dl (13.5-17.5); MEAN CORPUSCULAR HEMOGLOBIN 26.4 pg (27.0-33.0); MEAN CORPUSCULAR VOLUME 82.5 fl (80.0-96.0); PLATELET COUNT, AUTOMATED 386 10^3/uL (150-450); RED BLOOD COUNT 2.92 10^6/uL (4.30-6.10); WHITE BLOOD COUNT 11.7 10^3/uL (4.0-10.0)
[2024-12-15 07:57] LABS: PROCALCITONIN 1.33 ng/ml
[2024-12-15 08:00] VITALS: BP 130/83; TEMP 99.2; O2SAT 91
[2024-12-15 08:14] LABS: ALBUMIN 1.9 G/DL (3.2-5.2); ALKALINE PHOSPHATASE 121 U/L (40-129); ALT/SGPT < 9 U/L (7.0-40); AST/SGOT < 8 U/L (<34); BILIRUBIN,TOTAL 0.2 MG/DL (0.3-1.2); BLOOD UREA NITROGEN 10 MG/DL (9-23); CALCIUM LEVEL 8.3 MG/DL (8.5-10.1); CARBON DIOXIDE LEVEL 24 MMOL/L (20-31); CHLORIDE LEVEL 106 MMOL/L (98-107); CREATININE FOR GFR 0.75 MG/DL (0.70-1.30); GLOMERULAR FILTRATION RATE > 90.0 (>60); GLUCOSE, FASTING 171 MG/DL (60-100); POTASSIUM SERUM 4.1 MMOL/L (3.5-5.1); SODIUM LEVEL 139 MMOL/L (136-145); TOTAL PROTEIN 6.4 G/DL (5.7-8.2)
[2024-12-15 08:18] LABS: C REACTIVE PROTEIN QUANTITATIV 28.48 MG/DL (<1.0)
[2024-12-15] MEDS: VENLAFAXINE **XR** 75MG CAPSULE PO SCH (09:05)
[2024-12-15] MEDS: MIDODRINE 5 MG TAB PO SCH (09:05)
[2024-12-15] MEDS: FAMOTIDINE 20 MG TAB PO SCH (09:06)
[2024-12-15] MEDS: PREGABALIN 75 MG CAP(LYRICA) PO SCH (09:06)
[2024-12-15] MEDS: CEFEPIME HCL 2 GM in DEXTROSE 5% (D5W) ADV/MINI-BAG 50 ML IV SCH (10:15)
[2024-12-15 12:00] VITALS: BP 134/87; TEMP 97.6; O2SAT 96
[2024-12-15] MEDS ORDERED: PILL CUTTER 1 EACH XX ONE (12:41)
[2024-12-15] MEDS: PROMETHAZINE 25 MG TAB PO PRN (12:43)
[2024-12-15] MEDS: VANCOMYCIN HCL 750 MG, VIAL MATE ADAPTER 1 EACH in NS 250 ML IV SCH (15:55)
[2024-12-15 16:00] VITALS: BP 132/89; TEMP 97.9; O2SAT 94
[2024-12-15 19:40] VITALS: BP 137/89; TEMP 99.9; O2SAT 94
[2024-12-15] MEDS: QUEtiapine FUMARATE 25 MG TAB PO SCH (20:51)
[2024-12-16] VITALS (11 sets, daily range): BP systolic 124–149; BP diastolic 80–94; TEMP 97.7–99.9; O2SAT 92–100
[2024-12-16 07:27] LABS: HEMATOCRIT 22.2 % (42.0-52.0); MEAN CORPUSCULAR HEMOGLOBIN 25.4 pg (27.0-33.0); MEAN CORPUSCULAR HGB CONC 30.6 g/dl (32.0-36.5); MEAN CORPUSCULAR VOLUME 82.8 fl (80.0-96.0); PLATELET COUNT, AUTOMATED 358 10^3/uL (150-450); RED BLOOD COUNT 2.68 10^6/uL (4.30-6.10); WHITE BLOOD COUNT 6.3 10^3/uL (4.0-10.0)
[2024-12-16 07:34] LABS: HEMOGLOBIN 6.8 g/dl (13.5-17.5)
[2024-12-16 08:02] LABS: ALBUMIN 1.9 G/DL (3.2-5.2); ALKALINE PHOSPHATASE 108 U/L (40-129); ALT/SGPT < 9 U/L (7.0-40); AST/SGOT < 8 U/L (<34); BILIRUBIN,TOTAL 0.2 MG/DL (0.3-1.2); BLOOD UREA NITROGEN 10 MG/DL (9-23); CALCIUM LEVEL 8.5 MG/DL (8.5-10.1); CARBON DIOXIDE LEVEL 26 MMOL/L (20-31); CHLORIDE LEVEL 106 MMOL/L (98-107); CREATININE FOR GFR 0.88 MG/DL (0.70-1.30); GLOMERULAR FILTRATION RATE > 90.0 (>60); GLUCOSE, FASTING 209 MG/DL (60-100); POTASSIUM SERUM 4.3 MMOL/L (3.5-5.1); SODIUM LEVEL 140 MMOL/L (136-145); TOTAL PROTEIN 6.3 G/DL (5.7-8.2)
[2024-12-16 08:22] LABS: C REACTIVE PROTEIN QUANTITATIV 21.66 MG/DL (<1.0)
[2024-12-16 13:37] LABS: HEMOGLOBIN 8.2 g/dl (13.5-17.5); MEAN CORPUSCULAR HEMOGLOBIN 26.5 pg (27.0-33.0); MEAN CORPUSCULAR HGB CONC 31.5 g/dl (32.0-36.5); MEAN CORPUSCULAR VOLUME 84.1 fl (80.0-96.0); PLATELET COUNT, AUTOMATED 406 10^3/uL (150-450); RED BLOOD COUNT 3.09 10^6/uL (4.30-6.10)
[2024-12-17] VITALS (10 sets, daily range): BP systolic 134–158; BP diastolic 86–99; TEMP 97.5–99.4; O2SAT 91–97
[2024-12-17 05:52] LABS: HEMATOCRIT 21.6 % (42.0-52.0); HEMOGLOBIN 7.1 g/dl (13.5-17.5); MEAN CORPUSCULAR HEMOGLOBIN 27.3 pg (27.0-33.0); MEAN CORPUSCULAR HGB CONC 32.9 g/dl (32.0-36.5); MEAN CORPUSCULAR VOLUME 83.1 fl (80.0-96.0); PLATELET COUNT, AUTOMATED 340 10^3/uL (150-450); WHITE BLOOD COUNT 5.9 10^3/uL (4.0-10.0)
[2024-12-17 06:04] LABS: ALBUMIN 1.8 G/DL (3.2-5.2); ALKALINE PHOSPHATASE 96 U/L (40-129); ALT/SGPT < 9 U/L (7.0-40); AST/SGOT < 8 U/L (<34); BILIRUBIN,TOTAL 0.2 MG/DL (0.3-1.2); BLOOD UREA NITROGEN 7 MG/DL (9-23); CALCIUM LEVEL 8.1 MG/DL (8.5-10.1); CARBON DIOXIDE LEVEL 30 MMOL/L (20-31); CHLORIDE LEVEL 104 MMOL/L (98-107); CREATININE FOR GFR 0.87 MG/DL (0.70-1.30); GLOMERULAR FILTRATION RATE > 90.0 (>60); GLUCOSE, FASTING 183 MG/DL (60-100); SODIUM LEVEL 142 MMOL/L (136-145)
[2024-12-17 06:20] LABS: C REACTIVE PROTEIN QUANTITATIV 16.54 MG/DL (<1.0)
[2024-12-17 19:31] LABS: HEMATOCRIT 27.7 % (42.0-52.0); HEMOGLOBIN 8.8 g/dl (13.5-17.5)
[2024-12-18] VITALS (11 sets, daily range): BP systolic 132–150; BP diastolic 70–90; TEMP 97.7–99.5; O2SAT 92–98
[2024-12-18 07:22] LABS: HEMATOCRIT 25.8 % (42.0-52.0); HEMOGLOBIN 8.2 g/dl (13.5-17.5); MEAN CORPUSCULAR HEMOGLOBIN 26.5 pg (27.0-33.0); MEAN CORPUSCULAR HGB CONC 31.8 g/dl (32.0-36.5); MEAN CORPUSCULAR VOLUME 83.5 fl (80.0-96.0); PLATELET COUNT, AUTOMATED 412 10^3/uL (150-450); RED BLOOD COUNT 3.09 10^6/uL (4.30-6.10); WHITE BLOOD COUNT 5.2 10^3/uL (4.0-10.0)
[2024-12-18 07:57] LABS: ALKALINE PHOSPHATASE 105 U/L (40-129); ALT/SGPT < 9 U/L (7.0-40); AST/SGOT 9 U/L (<34); BILIRUBIN,TOTAL 0.2 MG/DL (0.3-1.2); BLOOD UREA NITROGEN 8 MG/DL (9-23); C REACTIVE PROTEIN QUANTITATIV 17.03 MG/DL (<1.0); CARBON DIOXIDE LEVEL 34 MMOL/L (20-31); CHLORIDE LEVEL 102 MMOL/L (98-107); CREATININE FOR GFR 0.87 MG/DL (0.70-1.30); GLOMERULAR FILTRATION RATE > 90.0 (>60); GLUCOSE, FASTING 133 MG/DL (60-100); POTASSIUM SERUM 3.9 MMOL/L (3.5-5.1); SODIUM LEVEL 142 MMOL/L (136-145); TOTAL PROTEIN 6.5 G/DL (5.7-8.2)
[2024-12-18] MEDS ORDERED: propofoL 200 MG/20 ML VIAL As Ordered ONE (10:07)
[2024-12-18] MEDS ORDERED: MIDAZOLAM INJ 2MG/2ML VIAL As Ordered ONE (10:08)
[2024-12-18] MEDS ORDERED: LIDOCAINE 2% 100MG/5ML SDV (FOR ANES.) As Ordered ONE (10:08)
[2024-12-18] MEDS ORDERED: ROCURONIUM BROMIDE 50MG/5ML VIAL As Ordered ONE (10:08)
[2024-12-18] MEDS ORDERED: fentaNYL 100 MCG/2 ML INJECTION As Ordered ONE (10:08)
[2024-12-18] MEDS ORDERED: fentaNYL 250 MCG/5 ML INJECTION As Ordered ONE (11:30)
[2024-12-18] MEDS ORDERED: ONDANSETRON 4MG 2ML VIAL As Ordered ONE (11:39)
[2024-12-18] MEDS ORDERED: SUGAMMADEX SODIUM 500 MG/5 ML VIAL (BRIDION) As Ordered ONE (11:39)
[2024-12-18] MEDS ORDERED: KETOROLAC 30 MG/ML 1ML VIAL As Ordered ONE (11:39)
[2024-12-18] MEDS ORDERED: PHENYLephrine 500MCG 5ML (100MCG/ML) SYRINGE As Ordered ONE (11:39)
[2024-12-18] MEDS ORDERED: METOCLOPRAMIDE INJ 10MG/2ML VIAL As Ordered ONE (11:39)
[2024-12-18] MEDS ORDERED: ACETAMINOPHEN 1000MG/100ML IV BAG As Ordered ONE (11:41)
[2024-12-18] MEDS: LR 1,000 ML IV SCH (13:20)
[2024-12-18] MEDS: fentaNYL 100 MCG/2 ML INJECTION IV PRN (13:52)
[2024-12-18] MEDS: ONDANSETRON 4MG 2ML VIAL IV PRN (14:02)
[2024-12-18] MEDS: HYDROMORPHONE HCL 0.5 MG/ 0.5 ML SYRINGE IV PRN ×2 (14:02→22:23)
[2024-12-18] MEDS: oxyCODONE 5MG TAB PO PRN (14:22)
[2024-12-18 16:04] LABS: HEMATOCRIT 25.9 % (42.0-52.0); HEMOGLOBIN 8.3 g/dl (13.5-17.5); MEAN CORPUSCULAR VOLUME 84.4 fl (80.0-96.0); PLATELET COUNT, AUTOMATED 407 10^3/uL (150-450); RED BLOOD COUNT 3.07 10^6/uL (4.30-6.10); WHITE BLOOD COUNT 4.4 10^3/uL (4.0-10.0)
[2024-12-18 16:23] LABS: BLOOD UREA NITROGEN 9 MG/DL (9-23); CALCIUM LEVEL 7.9 MG/DL (8.5-10.1); CARBON DIOXIDE LEVEL 32 MMOL/L (20-31); CHLORIDE LEVEL 101 MMOL/L (98-107); CREATININE FOR GFR 0.93 MG/DL (0.70-1.30); GLOMERULAR FILTRATION RATE > 90.0 (>60); GLUCOSE, FASTING 154 MG/DL (60-100); POTASSIUM SERUM 4.2 MMOL/L (3.5-5.1); SODIUM LEVEL 140 MMOL/L (136-145)
[2024-12-18] MEDS: oxyCODONE 5MG TAB PO SCH (17:43)
[2024-12-18] MEDS: HYDROmorphone HCL 2MG/ML 1ML VIAL IV PRN (19:01)
[2024-12-19] VITALS (15 sets, daily range): BP systolic 115–146; BP diastolic 58–90; TEMP 97.9–101.3; O2SAT 89–96
[2024-12-19] MEDS: BACLOFEN 10 MG TAB PO ONE (02:34)
[2024-12-19] MEDS: KETOROLAC 30 MG/ML 1ML VIAL IV ONE (02:40)
[2024-12-19 05:55] LABS: HEMATOCRIT 24.5 % (42.0-52.0); HEMOGLOBIN 7.7 g/dl (13.5-17.5); MEAN CORPUSCULAR HEMOGLOBIN 26.2 pg (27.0-33.0); MEAN CORPUSCULAR HGB CONC 31.4 g/dl (32.0-36.5); MEAN CORPUSCULAR VOLUME 83.3 fl (80.0-96.0); PLATELET COUNT, AUTOMATED 408 10^3/uL (150-450); RED BLOOD COUNT 2.94 10^6/uL (4.30-6.10); WHITE BLOOD COUNT 9.4 10^3/uL (4.0-10.0)
[2024-12-19 06:35] LABS: ALBUMIN 1.9 G/DL (3.2-5.2); ALKALINE PHOSPHATASE 101 U/L (40-129); ALT/SGPT < 9 U/L (7.0-40); AST/SGOT 21 U/L (<34); BILIRUBIN,TOTAL 0.2 MG/DL (0.3-1.2); BLOOD UREA NITROGEN 12 MG/DL (9-23); CALCIUM LEVEL 7.8 MG/DL (8.5-10.1); CARBON DIOXIDE LEVEL 30 MMOL/L (20-31); CHLORIDE LEVEL 99 MMOL/L (98-107); CREATININE FOR GFR 1.03 MG/DL (0.70-1.30); GLOMERULAR FILTRATION RATE > 90.0 (>60); GLUCOSE, FASTING 117 MG/DL (60-100); SODIUM LEVEL 138 MMOL/L (136-145); TOTAL PROTEIN 6.1 G/DL (5.7-8.2)
[2024-12-19] MEDS: VANCOMYCIN HCL 1,000 MG, VIAL MATE ADAPTER 1 EACH in NS 250 ML IV SCH (09:07)
[2024-12-19] MEDS ORDERED: MIDODRINE 5 MG TAB PO PRN (11:15)
[2024-12-19] MEDS: methocarbamoL 750 MG TAB PO SCH (12:11)
[2024-12-19] MEDS ORDERED: NALOXONE INJ 0.4MG/1ML VIAL IV PRN (22:00)
[2024-12-19] MEDS: oxyCODONE 5MG TAB PO PRN (23:43)
[2024-12-20] VITALS (9 sets, daily range): BP systolic 136–142; BP diastolic 86–92; TEMP 98.4–101; O2SAT 87–95
[2024-12-20 04:32] LABS: HEMATOCRIT 29.4 % (42.0-52.0); HEMOGLOBIN 9.5 g/dl (13.5-17.5); MEAN CORPUSCULAR HGB CONC 32.3 g/dl (32.0-36.5); MEAN CORPUSCULAR VOLUME 83.5 fl (80.0-96.0); PLATELET COUNT, AUTOMATED 433 10^3/uL (150-450); RED BLOOD COUNT 3.52 10^6/uL (4.30-6.10); WHITE BLOOD COUNT 11.5 10^3/uL (4.0-10.0)
[2024-12-20 05:53] LABS: ALKALINE PHOSPHATASE 128 U/L (40-129); ALT/SGPT 10 U/L (7.0-40); AST/SGOT 23 U/L (<34); BILIRUBIN,TOTAL 0.3 MG/DL (0.3-1.2); BLOOD UREA NITROGEN 13 MG/DL (9-23); C REACTIVE PROTEIN QUANTITATIV 24.67 MG/DL (<1.0); CALCIUM LEVEL 8.3 MG/DL (8.5-10.1); CARBON DIOXIDE LEVEL 31 MMOL/L (20-31); CHLORIDE LEVEL 100 MMOL/L (98-107); CREATININE FOR GFR 1.03 MG/DL (0.70-1.30); GLOMERULAR FILTRATION RATE > 90.0 (>60); GLUCOSE, FASTING 108 MG/DL (60-100); POTASSIUM SERUM 4.1 MMOL/L (3.5-5.1); SODIUM LEVEL 140 MMOL/L (136-145); TOTAL PROTEIN 6.6 G/DL (5.7-8.2)
[2024-12-20] MEDS: LIDOCAINE 5% (LIDODERM) PATCH TD ONE (10:47)
[2024-12-20] MEDS: MIRALAX *UNIT DOSE* 17GM PACKET PO SCH (10:47)
[2024-12-20] MEDS ORDERED: MEROPENEM INJ 1 GM in IV 1 EA IV SCH (10:50)
[2024-12-20] MEDS: MEROPENEM IV SCH (13:51)
[2024-12-20] MEDS: NS MINI IV SCH (13:51)
[2024-12-20 19:28] LABS: KETONE, URINE AUTO RFX NEGATIVE (NEGATIVE); LEUKOCYTE ESTERASE UR AUTO RFX NEGATIVE (NEGATIVE); NITRITE, URINE AUTO RFX NEGATIVE (NEGATIVE); RBC, URINE AUTO RFX 0 /HPF (0-3); SQUAM EPITHELIAL CELL UR AURFX 0 /HPF (0-6); WBC, URINE AUTO RFX 0 /HPF (0-3)
[2024-12-21 04:37] VITALS: BP 143/99; TEMP 98.6; O2SAT 93
[2024-12-21 05:05] LABS: HEMOGLOBIN 9.7 g/dl (13.5-17.5); MEAN CORPUSCULAR HEMOGLOBIN 26.9 pg (27.0-33.0); MEAN CORPUSCULAR HGB CONC 32.3 g/dl (32.0-36.5); MEAN CORPUSCULAR VOLUME 83.3 fl (80.0-96.0); PLATELET COUNT, AUTOMATED 485 10^3/uL (150-450); WHITE BLOOD COUNT 9.5 10^3/uL (4.0-10.0)
[2024-12-21] MEDS: MEROPENEM INJ 1 GM in IV 1 EA IV SCH (05:30)
[2024-12-21 05:34] LABS: ALBUMIN 1.8 G/DL (3.2-5.2); ALKALINE PHOSPHATASE 126 U/L (40-129); ALT/SGPT 11 U/L (7.0-40); AST/SGOT 17 U/L (<34); BILIRUBIN,TOTAL 0.3 MG/DL (0.3-1.2); BLOOD UREA NITROGEN 11 MG/DL (9-23); CALCIUM LEVEL 8.3 MG/DL (8.5-10.1); CARBON DIOXIDE LEVEL 34 MMOL/L (20-31); CHLORIDE LEVEL 98 MMOL/L (98-107); CREATININE FOR GFR 0.98 MG/DL (0.70-1.30); GLOMERULAR FILTRATION RATE > 90.0 (>60); GLUCOSE, FASTING 211 MG/DL (60-100); SODIUM LEVEL 140 MMOL/L (136-145); TOTAL PROTEIN 6.4 G/DL (5.7-8.2)
[2024-12-21 05:59] LABS: C REACTIVE PROTEIN QUANTITATIV 22.54 MG/DL (<1.0)
[2024-12-21 08:00] VITALS: BP 140/93; TEMP 98.6; O2SAT 90
[2024-12-21] MEDS ORDERED: PERCOCET 5MG/325MG TAB PO PRN (10:35)
[2024-12-21 12:00] VITALS: BP 140/92; TEMP 98.5; O2SAT 93
[2024-12-21] MEDS: LACTOBACILLUS ACIDOPHILUS CAP (BACID) PO SCH (12:48)
[2024-12-21] MEDS: PERCOCET 5MG/325MG TAB PO PRN (12:48)
[2024-12-21] MEDS: MEROPENEM IV SCH (12:49)
[2024-12-21] MEDS: NS MINI IV SCH (12:49)
[2024-12-21 13:48] VITALS: O2SAT 92
[2024-12-21] MEDS ORDERED: VANCOMYCIN HCL 750 MG, VIAL MATE ADAPTER 1 EACH in NS 250 ML IV SCH (16:00)
== END 2024-12-21 14:27 | DRG 854 ==
LOC: M ED 18:05 → M ED INP 12-14 04:45 → M MSPAV 12-14 05:25
PROVIDERS: ADMIT Student in an Organized Health Care Education/Training Program; ATTEND Internal Medicine
PROC: 30233N1 Transfusion of Nonautologous Red Blood Cells into Peripheral Vein, Percutaneous Approach (ICD-10-PCS; 2024-12-16)
PROC: 0Y6J0Z2 Detachment at Left Lower Leg, Mid, Open Approach (ICD-10-PCS; principal; 2024-12-18 10:40)
DX: A40.9 Streptococcal sepsis, unspecified (principal); M86.8X7 Other osteomyelitis, ankle and foot; L03.116 Cellulitis of left lower limb; D50.0 Iron deficiency anemia secondary to blood loss (chronic); E10.69 Type 1 diabetes mellitus with other specified complication; I10 Essential (primary) hypertension; E10.65 Type 1 diabetes mellitus with hyperglycemia; E10.319 Type 1 diabetes mellitus with unspecified diabetic retinopathy without macular edema; E10.42 Type 1 diabetes mellitus with diabetic polyneuropathy; E10.22 Type 1 diabetes mellitus with diabetic chronic kidney disease; E10.51 Type 1 diabetes mellitus with diabetic peripheral angiopathy without gangrene; I95.9 Hypotension, unspecified; E10.43 Type 1 diabetes mellitus with diabetic autonomic (poly)neuropathy; F41.9 Anxiety disorder, unspecified; F32.A Depression, unspecified; K21.9 Gastro-esophageal reflux disease without esophagitis; F12.90 Cannabis use, unspecified, uncomplicated; F11.90 Opioid use, unspecified, uncomplicated; G89.29 Other chronic pain; M54.59 Other low back pain; Z88.0 Allergy status to penicillin; Z88.8 Allergy status to other drugs, medicaments and biological substances; Z79.899 Other long term (current) drug therapy; Z79.4 Long term (current) use of insulin

== ENCOUNTER 2025-03-21 13:02 | Outpatient (RCR) | payer MEDICARE, MEDICAID ==
[~2025-03-21 13:02] MED LIST changes: +BACI50OI TOP; +HYDR-3719 PO; +HYDR12.510 PO; -HYDR12CA PO; -IBUP-1022 PO; +IBUP600T42 PO; +LISI40TA10 PO; -LISI40TA4 PO; +METH-1165 PO; +METO1TAB87 PO; +NARC1SPR; +OXYC10TA12 PO
[2025-03-31] MEDS ORDERED: LATA1DRO OD (22:45)
[2025-03-31] MEDS ORDERED: ACET250T18 PO (22:45)
[2025-04-03] MEDS ORDERED: BACTDSTA PO (16:24)
[2025-04-03] MEDS ORDERED: PANT40TA29 PO (16:24)
[2025-04-03] MEDS ORDERED: METO5TAB2 PO (16:24)
== END 2025-04-15 ==
LOC: M PT 13:02
PROVIDERS: ATTEND Physician Assistant
DX: Z89.511 Acquired absence of right leg below knee (principal); Z89.512 Acquired absence of left leg below knee

== ENCOUNTER 2025-03-31 18:30 | Inpatient (IN) | payer MEDICARE, MEDICAID ==
[~2025-03-31] VITALS: Ht 180.3 cm; Wt 76.2 kg
[~2025-03-31 18:30] MED LIST changes: +IBUP-1022 PO; -IBUP600T42 PO
[2025-03-31 19:51] LABS: VENOUS BASE EXCESS -21.2 (-2.0-2.0); VENOUS HCO3 7.4 MMOL/L (23.0-27.0); VENOUS O2 SATURATION 65.3 % (60.0-80.0); VENOUS PARTIAL PRESSURE CO2 26.0 mmHg (38.0-50.0); VENOUS PARTIAL PRESSURE O2 39.3 mmHg (30.0-50.0); VENOUS PH 7.074 UNITS (7.330-7.430); VENOUS STANDARD HCO3 8.7 MMOL/L; VENOUS TOTAL CO2 8.2 MMOL/L (24.0-28.0)
[2025-03-31 19:55] LABS: BASO # 0.0 10^3/uL (0.0-0.2); BASO % 0.2 % (0.0-1.0); EOS # 0.0 10^3/uL (0.0-0.5); EOS % 0.0 % (0.0-3.0); LYMPH # 0.6 10^3/uL (1.5-5.0); LYMPH % 4.0 % (24.0-44.0); MONO # 0.7 10^3/uL (0.0-0.8); MONO % 4.6 % (2.0-8.0); NEUTROPHILS # 14.2 10^3/uL (1.5-8.5); NEUTROPHILS % 90.8 % (36.0-66.0); PLATELET COUNT, AUTOMATED 329 10^3/uL (150-450)
[2025-03-31 19:58] LABS: KETONE, URINE AUTO RFX 2+ mg/dL (NEGATIVE); LEUKOCYTE ESTERASE UR AUTO RFX NEGATIVE (NEGATIVE); MUCUS, URINE RFX SMALL (NEGATIVE); NITRITE, URINE AUTO RFX NEGATIVE (NEGATIVE); RBC, URINE AUTO RFX 0 /HPF (0-3); SQUAM EPITHELIAL CELL UR AURFX 0 /HPF (0-6); WBC, URINE AUTO RFX 0 /HPF (0-3)
[2025-03-31 20:12] LABS: ESTIMATED AVERAGE GLUCOSE 197.0 MG/DL (60-110)
[2025-03-31 20:25] LABS: OSMOLALITY SERUM 363 MOSM/KG (275-295)
[2025-03-31 20:32] LABS: ACETONE/KETONE > 4.50 MMOL/L (0.02-0.27); ALT/SGPT < 9 U/L (7.0-40); AST/SGOT < 8 U/L (<34); CALCIUM LEVEL 9.1 MG/DL (8.5-10.1); CARBON DIOXIDE LEVEL < 10.0 MMOL/L (20-31); CHLORIDE LEVEL 100 MMOL/L (98-107); CREATININE FOR GFR 1.67 MG/DL (0.70-1.30); GLOMERULAR FILTRATION RATE 51.8 (>60); POTASSIUM SERUM 5.9 MMOL/L (3.5-5.1); SODIUM LEVEL 137 MMOL/L (136-145)
[2025-03-31] MEDS: HumuLIN R (REGULAR) INSULIN (NovoLIN R) **100 U/ML** PER UNIT IV ONE (21:14)
[2025-03-31] MEDS: NS (Normal Saline) 0.9% 1,000 ML IV ONE (21:14)
[2025-03-31] MEDS: CALCIUM GLUCONATE 1,000 MG in DEXTROSE 5% (D5W) MINI-BAG PLU 100 ML IV ONE (21:15)
[2025-03-31] MEDS: INSULIN REGULAR IN 0.9 % NACL 100 UNIT in IV 1 EA IV SCH (22:34)
[2025-03-31] MEDS ORDERED: ACET250T18 PO (22:45)
[2025-03-31] MEDS ORDERED: LATA1DRO OD (22:45)
[2025-03-31] MEDS ORDERED: HOME MED LIST COMPLETE! XX SCH (22:45)
[2025-03-31] MEDS: NS (Normal Saline) 0.9% 1,000 ML IV SCH (22:53)
[2025-03-31] MEDS: SODIUM BICARBONATE 8.4% INJ 50ML SYRINGE IV SCH (22:53)
[2025-03-31 22:56] LABS: VENOUS BASE EXCESS -21.4 (-2.0-2.0); VENOUS HCO3 7.6 MMOL/L (23.0-27.0); VENOUS O2 SATURATION 89.6 % (60.0-80.0); VENOUS PARTIAL PRESSURE CO2 27.6 mmHg (38.0-50.0); VENOUS PARTIAL PRESSURE O2 70.0 mmHg (30.0-50.0); VENOUS PH 7.059 UNITS (7.330-7.430); VENOUS STANDARD HCO3 9.0 MMOL/L; VENOUS TOTAL CO2 8.5 MMOL/L (24.0-28.0)
[2025-03-31 23:43] LABS: CALCIUM LEVEL 9.5 MG/DL (8.5-10.1); CARBON DIOXIDE LEVEL < 10.0 MMOL/L (20-31); CHLORIDE LEVEL 102 MMOL/L (98-107); CREATININE FOR GFR 1.68 MG/DL (0.70-1.30); GLOMERULAR FILTRATION RATE 51.4 (>60); POTASSIUM SERUM 5.0 MMOL/L (3.5-5.1); SODIUM LEVEL 139 MMOL/L (136-145)
[2025-04-01] VITALS (18 sets, daily range): BP systolic 131–164; BP diastolic 65–83; TEMP 98.3–100.4; O2SAT 95–100
[2025-04-01] MEDS: ENOXAPARIN 40 MG/0.4 ML SYRINGE (J1650 PER 10MG) SC ONE (00:40)
[2025-04-01 00:56] LABS: VENOUS BASE EXCESS -15.2 (-2.0-2.0); VENOUS HCO3 9.9 MMOL/L (23.0-27.0); VENOUS O2 SATURATION 99.1 % (60.0-80.0); VENOUS PARTIAL PRESSURE CO2 22.4 mmHg (38.0-50.0); VENOUS PARTIAL PRESSURE O2 219.3 mmHg (30.0-50.0); VENOUS PH 7.262 UNITS (7.330-7.430); VENOUS STANDARD HCO3 12.9 MMOL/L; VENOUS TOTAL CO2 10.6 MMOL/L (24.0-28.0)
[2025-04-01 01:40] LABS: CALCIUM LEVEL 9.4 MG/DL (8.5-10.1); CARBON DIOXIDE LEVEL 11.0 MMOL/L (20-31); CHLORIDE LEVEL 105.0 MMOL/L (98-107); CREATININE FOR GFR 1.55 MG/DL (0.70-1.30); GLOMERULAR FILTRATION RATE 56.6 (>60); POTASSIUM SERUM 4.4 MMOL/L (3.5-5.1); SODIUM LEVEL 144.0 MMOL/L (136-145)
[2025-04-01] MEDS: INSULIN IV RATE CHANGE DOCUMENTATION ML/HR XX SCH ×2 (02:32→03:33)
[2025-04-01] MEDS: ONDANSETRON 4MG 2ML VIAL IV PRN ×2 (04:01→16:13)
[2025-04-01 04:08] LABS: VENOUS BASE EXCESS -13.2 (-2.0-2.0); VENOUS HCO3 12.6 MMOL/L (23.0-27.0); VENOUS O2 SATURATION 91.4 % (60.0-80.0); VENOUS PARTIAL PRESSURE CO2 29.2 mmHg (38.0-50.0); VENOUS PARTIAL PRESSURE O2 64.5 mmHg (30.0-50.0); VENOUS PH 7.252 UNITS (7.330-7.430); VENOUS STANDARD HCO3 14.2 MMOL/L; VENOUS TOTAL CO2 13.5 MMOL/L (24.0-28.0)
[2025-04-01 04:16] LABS: PLATELET COUNT, AUTOMATED 348 10^3/uL (150-450)
[2025-04-01 04:40] LABS: CALCIUM LEVEL 9.8 MG/DL (8.5-10.1); CARBON DIOXIDE LEVEL 16 MMOL/L (20-31); CHLORIDE LEVEL 109 MMOL/L (98-107); CREATININE FOR GFR 1.39 MG/DL (0.70-1.30); GLOMERULAR FILTRATION RATE 64.5 (>60); MAGNESIUM LEVEL 1.8 MG/DL (1.8-2.4); PHOSPHORUS LEVEL 1.7 MG/DL (2.5-4.9); POTASSIUM SERUM 4.0 MMOL/L (3.5-5.1); SODIUM LEVEL 146 MMOL/L (136-145)
[2025-04-01 04:41] LABS: OSMOLALITY SERUM 346 MOSM/KG (275-295)
[2025-04-01 04:46] LABS: ACETONE/KETONE > 4.50 MMOL/L (0.02-0.27)
[2025-04-01] MEDS: D5W/0.45% SODIUM CHLORIDE 1,000 ML IV SCH ×2 (05:06→12:04)
[2025-04-01] MEDS: INSULIN REGULAR IN 0.9 % NACL 100 UNIT in IV 1 EA IV SCH (08:27)
[2025-04-01 08:58] LABS: CALCIUM LEVEL 9.1 MG/DL (8.5-10.1); CARBON DIOXIDE LEVEL 17.0 MMOL/L (20-31); CHLORIDE LEVEL 112.0 MMOL/L (98-107); CREATININE FOR GFR 1.15 MG/DL (0.70-1.30); GLOMERULAR FILTRATION RATE 81.0 (>60); OSMOLALITY SERUM 346.0 MOSM/KG (275-295); POTASSIUM SERUM 4.0 MMOL/L (3.5-5.1); SODIUM LEVEL 147.0 MMOL/L (136-145)
[2025-04-01] MEDS: NS (Normal Saline) 0.9% 1,000 ML IV SCH ×2 (09:31→10:48)
[2025-04-01] MEDS: PANTOPRAZOLE 40MG VIAL IV SCH (09:38)
[2025-04-01] MEDS: SODIUM PHOSPHATE INJ 30 MMOL in D5W 500 ML IV ONE (10:47)
[2025-04-01 12:07] LABS: VENOUS BASE EXCESS -8.2 (-2.0-2.0); VENOUS HCO3 16.6 MMOL/L (23.0-27.0); VENOUS O2 SATURATION 99.6 % (60.0-80.0); VENOUS PARTIAL PRESSURE CO2 31.5 mmHg (38.0-50.0); VENOUS PARTIAL PRESSURE O2 242.2 mmHg (30.0-50.0); VENOUS PH 7.340 UNITS (7.330-7.430); VENOUS STANDARD HCO3 17.9 MMOL/L; VENOUS TOTAL CO2 17.6 MMOL/L (24.0-28.0)
[2025-04-01 12:41] LABS: CALCIUM LEVEL 8.3 MG/DL (8.5-10.1); CARBON DIOXIDE LEVEL 18 MMOL/L (20-31); CHLORIDE LEVEL 114 MMOL/L (98-107); CREATININE FOR GFR 1.02 MG/DL (0.70-1.30); GLOMERULAR FILTRATION RATE > 90.0 (>60); POTASSIUM SERUM 4.0 MMOL/L (3.5-5.1); SODIUM LEVEL 149 MMOL/L (136-145)
[2025-04-01 17:43] LABS: CALCIUM LEVEL 8.2 MG/DL (8.5-10.1); CARBON DIOXIDE LEVEL 20 MMOL/L (20-31); CHLORIDE LEVEL 111 MMOL/L (98-107); CREATININE FOR GFR 0.96 MG/DL (0.70-1.30); GLOMERULAR FILTRATION RATE > 90.0 (>60); POTASSIUM SERUM 3.5 MMOL/L (3.5-5.1); SODIUM LEVEL 147 MMOL/L (136-145)
[2025-04-01 20:23] LABS: VENOUS BASE EXCESS -4.4 (-2.0-2.0); VENOUS HCO3 19.4 MMOL/L (23.0-27.0); VENOUS O2 SATURATION 99.3 % (60.0-80.0); VENOUS PARTIAL PRESSURE CO2 31.6 mmHg (38.0-50.0); VENOUS PARTIAL PRESSURE O2 212.4 mmHg (30.0-50.0); VENOUS PH 7.407 UNITS (7.330-7.430); VENOUS STANDARD HCO3 20.8 MMOL/L; VENOUS TOTAL CO2 20.4 MMOL/L (24.0-28.0)
[2025-04-01 20:52] LABS: CALCIUM LEVEL 8.2 MG/DL (8.5-10.1); CARBON DIOXIDE LEVEL 21 MMOL/L (20-31); CHLORIDE LEVEL 109 MMOL/L (98-107); CREATININE FOR GFR 0.96 MG/DL (0.70-1.30); GLOMERULAR FILTRATION RATE > 90.0 (>60); POTASSIUM SERUM 3.4 MMOL/L (3.5-5.1); SODIUM LEVEL 146 MMOL/L (136-145)
[2025-04-01] MEDS: ENOXAPARIN 40 MG/0.4 ML SYRINGE (J1650 PER 10MG) SC SCH (21:14)
[2025-04-01] MEDS: KCL 10MEQ/100ML SWI (KRUN) 10 MEQ in IV 1 EA IV SCH (22:27)
[2025-04-01] MEDS: KCL 20MEQ IN D5/0.45NS 1000ML 1,000 ML IV SCH (23:35)
[2025-04-02] VITALS (7 sets, daily range): BP systolic 130–143; BP diastolic 70–86; TEMP 98.7–100.1; O2SAT 94–98
[2025-04-02] MEDS: LanTUS (INSULIN GLARGINE INJ) 1 UNITS/0.01 ML SC ONE (00:04)
[2025-04-02] MEDS: MAG SULF 1GM/100ML (MAG RUN) 1 GM in IV 1 EA IV SCH ×2 (00:38→22:11)
[2025-04-02 02:19] LABS: CALCIUM LEVEL 8.4 MG/DL (8.5-10.1); CARBON DIOXIDE LEVEL 24 MMOL/L (20-31); CHLORIDE LEVEL 107 MMOL/L (98-107); CREATININE FOR GFR 0.90 MG/DL (0.70-1.30); GLOMERULAR FILTRATION RATE > 90.0 (>60); POTASSIUM SERUM 3.3 MMOL/L (3.5-5.1); SODIUM LEVEL 142 MMOL/L (136-145)
[2025-04-02] MEDS: KCL 10MEQ/100ML SWI (KRUN) 10 MEQ in IV 1 EA IV SCH ×2 (02:57→21:36)
[2025-04-02 06:52] LABS: VENOUS BASE EXCESS -1.5 (-2.0-2.0); VENOUS HCO3 22.6 MMOL/L (23.0-27.0); VENOUS O2 SATURATION 97.3 % (60.0-80.0); VENOUS PARTIAL PRESSURE CO2 35.7 mmHg (38.0-50.0); VENOUS PARTIAL PRESSURE O2 94.9 mmHg (30.0-50.0); VENOUS PH 7.419 UNITS (7.330-7.430); VENOUS STANDARD HCO3 23.2 MMOL/L; VENOUS TOTAL CO2 23.7 MMOL/L (24.0-28.0)
[2025-04-02 06:58] LABS: BASO # 0.0 10^3/uL (0.0-0.2); BASO % 0.1 % (0.0-1.0); EOS # 0.0 10^3/uL (0.0-0.5); EOS % 0.0 % (0.0-3.0); LYMPH # 0.7 10^3/uL (1.5-5.0); LYMPH % 9.1 % (24.0-44.0); MONO # 0.6 10^3/uL (0.0-0.8); MONO % 8.4 % (2.0-8.0); NEUTROPHILS # 6.0 10^3/uL (1.5-8.5); NEUTROPHILS % 82.3 % (36.0-66.0); PLATELET COUNT, AUTOMATED 230 10^3/uL (150-450)
[2025-04-02 07:27] LABS: ALT/SGPT < 9 U/L (7.0-40); AST/SGOT 14 U/L (<34); CALCIUM LEVEL 8.3 MG/DL (8.5-10.1); CARBON DIOXIDE LEVEL 25 MMOL/L (20-31); CHLORIDE LEVEL 105 MMOL/L (98-107); CREATININE FOR GFR 0.85 MG/DL (0.70-1.30); GLOMERULAR FILTRATION RATE > 90.0 (>60); MAGNESIUM LEVEL 1.6 MG/DL (1.8-2.4); POTASSIUM SERUM 3.6 MMOL/L (3.5-5.1); SODIUM LEVEL 141 MMOL/L (136-145)
[2025-04-02] MEDS: INSULIN LISPRO (NovoLOG) PER UNIT SC SCH (07:30)
[2025-04-02] MEDS: LanTUS (INSULIN GLARGINE INJ) 1 UNITS/0.01 ML SC SCH (08:18)
[2025-04-02] MEDS: NS (Normal Saline) 0.9% 1,000 ML IV SCH (08:20)
[2025-04-02] MEDS: PERCOCET 5MG/325MG TAB PO PRN (09:55)
[2025-04-02] MEDS: PREGABALIN 75 MG CAP PO SCH (16:40)
[2025-04-02 20:59] LABS: CALCIUM LEVEL 9.1 MG/DL (8.5-10.1); CARBON DIOXIDE LEVEL 30 MMOL/L (20-31); CHLORIDE LEVEL 105 MMOL/L (98-107); CREATININE FOR GFR 0.84 MG/DL (0.70-1.30); GLOMERULAR FILTRATION RATE > 90.0 (>60); POTASSIUM SERUM 3.3 MMOL/L (3.5-5.1); SODIUM LEVEL 144 MMOL/L (136-145)
[2025-04-02] MEDS: VENLAFAXINE **XR** 75MG CAPSULE PO SCH (21:03)
[2025-04-02 21:39] LABS: MAGNESIUM LEVEL 1.4 MG/DL (1.8-2.4)
[2025-04-03 03:26] VITALS: BP 135/81; TEMP 98.1; O2SAT 94
[2025-04-03 04:23] LABS: BASO # 0.0 10^3/uL (0.0-0.2); BASO % 0.4 % (0.0-1.0); EOS # 0.0 10^3/uL (0.0-0.5); EOS % 0.2 % (0.0-3.0); LYMPH # 1.1 10^3/uL (1.5-5.0); LYMPH % 24.1 % (24.0-44.0); MONO # 0.5 10^3/uL (0.0-0.8); MONO % 11.2 % (2.0-8.0); NEUTROPHILS # 2.9 10^3/uL (1.5-8.5); NEUTROPHILS % 63.9 % (36.0-66.0); PLATELET COUNT, AUTOMATED 183 10^3/uL (150-450)
[2025-04-03 04:54] LABS: CALCIUM LEVEL 8.1 MG/DL (8.5-10.1); CARBON DIOXIDE LEVEL 30 MMOL/L (20-31); CHLORIDE LEVEL 102 MMOL/L (98-107); CREATININE FOR GFR 0.85 MG/DL (0.70-1.30); GLOMERULAR FILTRATION RATE > 90.0 (>60); MAGNESIUM LEVEL 2.0 MG/DL (1.8-2.4); POTASSIUM SERUM 3.2 MMOL/L (3.5-5.1); SODIUM LEVEL 142 MMOL/L (136-145)
[2025-04-03] MEDS: POTASSIUM CHLORIDE 10MEQ SR TABLET PO ONE ×2 (05:45→15:23)
[2025-04-03 07:34] VITALS: BP 161/93; TEMP 99.2; O2SAT 97
[2025-04-03] MEDS: BACTRIM 160MG/800MG DS TAB PO SCH (10:40)
[2025-04-03 11:54] VITALS: BP 141/81; TEMP 98.6; O2SAT 98
[2025-04-03 12:54] LABS: CALCIUM LEVEL 8.8 MG/DL (8.5-10.1); CARBON DIOXIDE LEVEL 33 MMOL/L (20-31); CHLORIDE LEVEL 102 MMOL/L (98-107); CREATININE FOR GFR 0.89 MG/DL (0.70-1.30); GLOMERULAR FILTRATION RATE > 90.0 (>60); POTASSIUM SERUM 3.4 MMOL/L (3.5-5.1); SODIUM LEVEL 142 MMOL/L (136-145)
[2025-04-03] MEDS ORDERED: BACTDSTA PO (16:24)
[2025-04-03] MEDS ORDERED: METO5TAB2 PO (16:24)
[2025-04-03] MEDS ORDERED: PANT40TA29 PO (16:24)
[2025-04-03 18:30] VITALS: BP 154/91
[2025-04-03 20:15] VITALS: BP 132/90; TEMP 98.2; O2SAT 96
== END 2025-04-03 20:36 | disposition home or self-care (01) | DRG 638 ==
LOC: M ED 18:30 → EDBD 18:30 → M ED INP 22:08 → M ICU 04-01 02:20
PROVIDERS: ADMIT Student in an Organized Health Care Education/Training Program; ATTEND Internal Medicine
DX: E10.10 Type 1 diabetes mellitus with ketoacidosis without coma (principal); N17.9 Acute kidney failure, unspecified; E10.52 Type 1 diabetes mellitus with diabetic peripheral angiopathy with gangrene; E87.0 Hyperosmolality and hypernatremia; E10.65 Type 1 diabetes mellitus with hyperglycemia; E87.5 Hyperkalemia; Z89.511 Acquired absence of right leg below knee; D72.829 Elevated white blood cell count, unspecified; F32.A Depression, unspecified; K21.9 Gastro-esophageal reflux disease without esophagitis; F12.90 Cannabis use, unspecified, uncomplicated; G89.29 Other chronic pain; M19.90 Unspecified osteoarthritis, unspecified site; K59.00 Constipation, unspecified; F41.9 Anxiety disorder, unspecified; K31.84 Gastroparesis; E10.43 Type 1 diabetes mellitus with diabetic autonomic (poly)neuropathy; E10.319 Type 1 diabetes mellitus with unspecified diabetic retinopathy without macular edema; Z79.4 Long term (current) use of insulin; L97.509 Non-pressure chronic ulcer of other part of unspecified foot with unspecified severity; E87.6 Hypokalemia; E83.42 Hypomagnesemia; K20.90 Esophagitis, unspecified without bleeding; I95.89 Other hypotension; L02.92 Furuncle, unspecified; Z89.512 Acquired absence of left leg below knee; R56.9 Unspecified convulsions; Z91.148 Patient's other noncompliance with medication regimen for other reason; Z96.41 Presence of insulin pump (external) (internal); Z79.899 Other long term (current) drug therapy; Z88.0 Allergy status to penicillin; Z88.8 Allergy status to other drugs, medicaments and biological substances; F11.90 Opioid use, unspecified, uncomplicated; Z98.49 Cataract extraction status, unspecified eye

== ENCOUNTER → 2025-04-17 | Outpatient (REF) | payer MEDICARE, MEDICAID ==
[~2025-04-17] MED LIST changes: +ACET250T18 PO; +BACTDSTA PO; -IBUP-1022 PO; +IBUP600T42 PO; +LATA1DRO OD; -ZOLP5TAB PO; +ZOLP5TAB9 PO
[2025-04-17 13:19] LABS: BASO # 0.1 10^3/uL (0.0-0.2); BASO % 1.8 % (0.0-1.0); EOS # 0.0 10^3/uL (0.0-0.5); EOS % 0.7 % (0.0-3.0); LYMPH # 0.9 10^3/uL (1.5-5.0); LYMPH % 32.1 % (24.0-44.0); MONO # 0.3 10^3/uL (0.0-0.8); MONO % 11.1 % (2.0-8.0); NEUTROPHILS # 1.5 10^3/uL (1.5-8.5); NEUTROPHILS % 54.3 % (36.0-66.0); PLATELET COUNT, AUTOMATED 323 10^3/uL (150-450)
[2025-04-17 13:50] LABS: IRON (FE) 62.0 UG/DL (65-175)
[2025-04-17 16:53] LABS: ALT/SGPT 11.0 U/L (7.0-40); AST/SGOT 13.0 U/L (<34); CALCIUM LEVEL 10.0 MG/DL (8.5-10.1); CARBON DIOXIDE LEVEL 25.0 MMOL/L (20-31); CHLORIDE LEVEL 106.0 MMOL/L (98-107); CREATININE FOR GFR 1.41 MG/DL (0.70-1.30); GLOMERULAR FILTRATION RATE 63.4 (>60); POTASSIUM SERUM 4.7 MMOL/L (3.5-5.1); SODIUM LEVEL 140.0 MMOL/L (136-145)
== END ==
LOC: M LAB REF 11:57
PROVIDERS: ATTEND Family Medicine Addiction Medicine
DX: D64.9 Anemia, unspecified (principal)

== ENCOUNTER 2025-06-06 10:22 | Observation (INO) | payer MEDICARE, MEDICAID ==
[~2025-06-06] VITALS: Ht 180.3 cm; Wt 78.9 kg
[2025-06-06] MEDS ORDERED: dexAMETHasone 4 MG/ML 1 ML VIAL As Ordered ONE (10:52)
[2025-06-06] MEDS ORDERED: LIDOCAINE 2% 100 MG/5 ML SDV (FOR ANES.) As Ordered ONE (10:52)
[2025-06-06] MEDS ORDERED: ONDANSETRON 4MG/2ML VIAL As Ordered ONE (10:52)
[2025-06-06] MEDS ORDERED: MIDAZOLAM INJ 2 MG/2 ML VIAL As Ordered ONE (10:55)
[2025-06-06] MEDS: INSULIN LISPRO (NovoLOG) PER UNIT SC PRN ×2 (12:00→13:56)
[2025-06-06] MEDS ORDERED: DEXTROSE 50% 50 ML SYRINGE IV PRN ×2 (12:05→15:05)
[2025-06-06] MEDS ORDERED: GLUCAGON INJ 1 MG VIAL SC PRN ×2 (12:05→15:05)
[2025-06-06] MEDS ORDERED: GLUCOSE 4 GM CHEW PO PRN ×2 (12:05→15:05)
[2025-06-06] MEDS ORDERED: INSULIN LISPRO (NovoLOG) PER UNIT As Ordered ONE (12:07)
[2025-06-06] MEDS: CLINDAMYCIN 900 MG/50 ML PREMIX BAG As Ordered ONE (12:28)
[2025-06-06] MEDS ORDERED: ACETAMINOPHEN 1000MG/100ML IV BAG As Ordered ONE (12:29)
[2025-06-06] MEDS: ceFAZolin SOD 2 GM IV ONCE IV ONE (13:00)
[2025-06-06] MEDS ORDERED: MEPERIDINE 25 MG/ML 1 ML VIAL IV PRN (13:15)
[2025-06-06] MEDS ORDERED: ONDANSETRON 4MG/2ML VIAL IV PRN (13:15)
[2025-06-06] MEDS: HYDROMORPHONE HCL 0.5 MG/0.5 ML SYRINGE IV PRN (13:55)
[2025-06-06] MEDS ORDERED: ACETAMINOPHEN 325 MG TAB PO PRN (15:00)
[2025-06-06] MEDS ORDERED: METOCLOPRAMIDE 5 MG TAB PO PRN (15:05)
[2025-06-06 16:30] VITALS: BP 125/77; TEMP 97.9; O2SAT 95
[2025-06-06 17:00] VITALS: BP 130/86; TEMP 97; O2SAT 99
[2025-06-06] MEDS: PREGABALIN 75 MG CAP PO SCH (17:35)
[2025-06-06 18:00] VITALS: BP 127/84; TEMP 98.1; O2SAT 99
[2025-06-06 19:00] VITALS: BP 126/83; TEMP 97.9; O2SAT 98
[2025-06-06 20:00] VITALS: BP 125/83; TEMP 98.1; O2SAT 98
[2025-06-06] MEDS: IBUPROFEN 600 MG TAB PO PRN (20:04)
[2025-06-06] MEDS: FAMOTIDINE 20 MG TAB PO SCH (20:05)
[2025-06-06] MEDS: DOCUSATE SODIUM 100 MG CAPSULE PO SCH (20:05)
[2025-06-06] MEDS: VENLAFAXINE **XR** 75MG CAPSULE PO SCH (20:05)
[2025-06-06] MEDS: CLINDAMYCIN 600 MG in IV 1 EA IV SCH (20:43)
[2025-06-06 21:00] VITALS: BP 125/84; TEMP 97.9; O2SAT 98
[2025-06-07 01:10] VITALS: BP 123/85; TEMP 98.6; O2SAT 95
[2025-06-07 04:34] VITALS: BP 121/82; TEMP 98.6; O2SAT 96
[2025-06-07 09:00] VITALS: BP 115/68; TEMP 98.1; O2SAT 94
[2025-06-07] MEDS ORDERED: GLUCAGON INJ 1 MG VIAL SC PRN (09:15)
[2025-06-07] MEDS ORDERED: GLUCOSE 4 GM CHEW PO PRN (09:15)
[2025-06-07] MEDS ORDERED: DEXTROSE 50% 50 ML SYRINGE IV PRN (09:15)
[2025-06-07] MEDS: INSULIN LISPRO (NovoLOG) PER UNIT SC SCH ×4 (12:21→21:00)
[2025-06-07 13:00] VITALS: BP 126/76; TEMP 98.1; O2SAT 96
[2025-06-07] MEDS: LanTUS (INSULIN GLARGINE INJ) 1 UNITS/0.01 ML SC SCH (15:11)
[2025-06-07 15:45] LABS: PLATELET COUNT, AUTOMATED 198 10^3/uL (150-450)
[2025-06-07 16:24] LABS: CALCIUM LEVEL 8.6 MG/DL (8.5-10.1); CARBON DIOXIDE LEVEL 23.0 MMOL/L (20-31); CHLORIDE LEVEL 105.0 MMOL/L (98-107); CREATININE FOR GFR 1.28 MG/DL (0.70-1.30); GLOMERULAR FILTRATION RATE 70.8 (>60); POTASSIUM SERUM 4.3 MMOL/L (3.5-5.1); SODIUM LEVEL 138.0 MMOL/L (136-145)
[2025-06-07 17:00] VITALS: BP 127/75; TEMP 98.2; O2SAT 98
[2025-06-07] MEDS: MORPHINE SULFATE TAB IMM. REL. 30 MG PO PRN (20:08)
[2025-06-07 20:11] VITALS: BP 124/75; TEMP 98.4
[2025-06-08 06:22] VITALS: BP 116/72; TEMP 98.1; O2SAT 97
[2025-06-08 07:08] LABS: BASO # 0.0 10^3/uL (0.0-0.2); BASO % 0.3 % (0.0-1.0); EOS # 0.1 10^3/uL (0.0-0.5); EOS % 1.4 % (0.0-3.0); LYMPH # 1.0 10^3/uL (1.5-5.0); LYMPH % 16.8 % (24.0-44.0); MONO # 0.6 10^3/uL (0.0-0.8); MONO % 11.2 % (2.0-8.0); NEUTROPHILS # 4.0 10^3/uL (1.5-8.5); NEUTROPHILS % 70.0 % (36.0-66.0); PLATELET COUNT, AUTOMATED 188 10^3/uL (150-450)
[2025-06-08 08:09] LABS: CALCIUM LEVEL 9.0 MG/DL (8.5-10.1); CARBON DIOXIDE LEVEL 22 MMOL/L (20-31); CHLORIDE LEVEL 105 MMOL/L (98-107); CREATININE FOR GFR 1.03 MG/DL (0.70-1.30); GLOMERULAR FILTRATION RATE > 90.0 (>60); POTASSIUM SERUM 4.1 MMOL/L (3.5-5.1); SODIUM LEVEL 140 MMOL/L (136-145)
[2025-06-08] MEDS: INSULIN LISPRO (NovoLOG) PER UNIT SC SCH (08:30)
[2025-06-08] MEDS ORDERED: INSU100I16 SQ (10:28)
[2025-06-08 11:26] VITALS: BP 112/70; TEMP 97.5; O2SAT 99
[2025-06-08 12:22] VITALS: BP 112/70; TEMP 97.9; O2SAT 98
[2025-06-08 19:49] VITALS: BP 127/79; TEMP 98.2; O2SAT 98
[2025-06-08] MEDS: LanTUS (INSULIN GLARGINE INJ) 1 UNITS/0.01 ML SC SCH (22:00)
[2025-06-09 05:11] VITALS: BP 129/79; TEMP 98.1; O2SAT 93
[2025-06-09] MEDS: INSULIN LISPRO (NovoLOG) PER UNIT SC SCH (09:19)
== END 2025-06-09 13:10 | disposition home or self-care (01) ==
LOC: INTOOBSV 10:22 → M OR 10:22 → EDSTATUS 12:00 → M MS5PR 16:05
PROVIDERS: ADMIT Orthopaedic Surgery; ATTEND Orthopaedic Surgery
DX: T87.89 Other complications of amputation stump (principal); E10.65 Type 1 diabetes mellitus with hyperglycemia; Z79.4 Long term (current) use of insulin; Z88.0 Allergy status to penicillin; Z88.1 Allergy status to other antibiotic agents; K21.9 Gastro-esophageal reflux disease without esophagitis; I50.9 Heart failure, unspecified; K59.00 Constipation, unspecified; F41.9 Anxiety disorder, unspecified; F32.A Depression, unspecified; D64.9 Anemia, unspecified; Z79.899 Other long term (current) drug therapy
CPT/HCPCS: 27886; 36415; 80048; 85025; 85027; 96365; 96366; 97112; 97161; 97165; G0378; J0131; J0665; J0737; J1171; J1815; J2250; J2405; J3010

== ENCOUNTER 2025-07-04 11:22 | Inpatient (IN) | payer MEDICARE, MEDICAID ==
[~2025-07-04] VITALS: Ht 180.3 cm; Wt 73.0 kg
[~2025-07-04 11:22] MED LIST changes: -BACTDSTA PO; +INSU100I16 SQ; -LABE100T6 PO; +LABE100T91 PO; +LIDOCAINE 2% 100 MG/5 ML SDV (FOR ANES.) As Ordered ONE; +ONDANSETRON 4MG/2ML VIAL As Ordered ONE; +SULF-8 PO
[2025-07-04] MEDS: LR 1,000 ML IV SCH (11:55)
[2025-07-04] MEDS ORDERED: MIDAZOLAM INJ 2 MG/2 ML VIAL As Ordered ONE (12:02)
[2025-07-04] MEDS ORDERED: GLUCOSE 4 GM CHEW PO PRN ×2 (12:15→17:45)
[2025-07-04] MEDS ORDERED: DEXTROSE 50% 50 ML SYRINGE IV PRN ×2 (12:15→17:45)
[2025-07-04] MEDS ORDERED: GLUCAGON INJ 1 MG VIAL SC PRN ×2 (12:15→17:45)
[2025-07-04] MEDS ORDERED: INSU100V3 SQ (12:23)
[2025-07-04] MEDS ORDERED: NARC1SPR (12:23)
[2025-07-04] MEDS: INSULIN LISPRO (NovoLOG) PER UNIT SC PRN (12:25)
[2025-07-04] MEDS ORDERED: HOME MED LIST COMPLETE! XX SCH (12:30)
[2025-07-04] MEDS ORDERED: diphenhydrAMINE 50 MG/ML VIAL IV PRN (13:15)
[2025-07-04] MEDS ORDERED: SENNA 8.6 MG TAB PO PRN (13:15)
[2025-07-04] MEDS ORDERED: ONDANSETRON 4MG/2ML VIAL IV PRN (13:15)
[2025-07-04 15:50] VITALS: BP 141/79; TEMP 98.2; O2SAT 98
[2025-07-04] MEDS: ceFAZolin SODIUM 2 GM in DEXTROSE 5% (D5W) ADV/MINI-BAG 50 ML IV SCH (17:56)
[2025-07-04] MEDS: INSULIN LISPRO (NovoLOG) PER UNIT SC SCH ×2 (17:56→21:00)
[2025-07-04] MEDS ORDERED: ACETAMINOPHEN 325 MG TAB PO PRN (18:40)
[2025-07-04] MEDS: LanTUS (INSULIN GLARGINE INJ) 1 UNITS/0.01 ML SC ONE (18:52)
[2025-07-04 20:18] VITALS: BP 128/79; TEMP 97.6; O2SAT 99
[2025-07-04] MEDS: PERCOCET 5MG/325MG TAB PO PRN (21:47)
[2025-07-04] MEDS: acetaZOLAMIDE 250 MG TAB PO SCH (21:47)
[2025-07-04] MEDS: FAMOTIDINE 20 MG TAB PO SCH (21:47)
[2025-07-04] MEDS: VENLAFAXINE **XR** 75MG CAPSULE PO SCH (21:47)
[2025-07-04] MEDS: DORZOLAMIDE/TIMOLOL 10 ML OPHTHALMIC SOLN OD SCH (21:48)
[2025-07-05] MEDS: INSULIN LISPRO (NovoLOG) PER UNIT SC ONE (02:21)
[2025-07-05 04:58] VITALS: BP 119/75; TEMP 98.3; O2SAT 99
[2025-07-05] MEDS: DOCUSATE SODIUM 100 MG CAPSULE PO SCH (08:56)
[2025-07-05] MEDS ORDERED: LanTUS (INSULIN GLARGINE INJ) 1 UNITS/0.01 ML SC SCH (09:00)
[2025-07-05 12:30] VITALS: BP 109/71; TEMP 96.6; O2SAT 97
[2025-07-05 15:15] LABS: BASO # 0.0 10^3/uL (0.0-0.2); BASO % 1.0 % (0.0-1.0); EOS # 0.2 10^3/uL (0.0-0.5); EOS % 4.8 % (0.0-3.0); LYMPH # 1.3 10^3/uL (1.5-5.0); LYMPH % 33.1 % (24.0-44.0); MONO # 0.4 10^3/uL (0.0-0.8); MONO % 10.9 % (2.0-8.0); NEUTROPHILS # 2.0 10^3/uL (1.5-8.5); NEUTROPHILS % 49.9 % (36.0-66.0); PLATELET COUNT, AUTOMATED 268 10^3/uL (150-450)
[2025-07-05 15:48] LABS: CALCIUM LEVEL 8.9 MG/DL (8.5-10.1); CARBON DIOXIDE LEVEL 22.0 MMOL/L (20-31); CHLORIDE LEVEL 107.0 MMOL/L (98-107); CREATININE FOR GFR 1.09 MG/DL (0.70-1.30); GLOMERULAR FILTRATION RATE 85.8 (>60); POTASSIUM SERUM 3.9 MMOL/L (3.5-5.1); SODIUM LEVEL 141.0 MMOL/L (136-145)
[2025-07-05] MEDS ORDERED: dexAMETHasone 4 MG/ML 1 ML VIAL As Ordered ONE (15:52)
[2025-07-05] MEDS ORDERED: ROCURONIUM BROMIDE 50MG/5ML VIAL As Ordered ONE (15:52)
[2025-07-05] MEDS: LR 1,000 ML IV SCH (16:25)
[2025-07-05] MEDS ORDERED: ONDANSETRON 4MG/2ML VIAL IV PRN (16:25)
[2025-07-05] MEDS: HYDROMORPHONE HCL 0.5 MG/0.5 ML SYRINGE IV PRN (16:45)
[2025-07-05] MEDS: LanTUS (INSULIN GLARGINE INJ) 1 UNITS/0.01 ML SC ONE (17:51)
[2025-07-05 19:58] VITALS: BP 117/69; TEMP 98.5; O2SAT 99
[2025-07-05 21:15] VITALS: BP 133/85; TEMP 98.9; O2SAT 96
[2025-07-05] MEDS: ceFAZolin SODIUM 2 GM in DEXTROSE 5% (D5W) ADV/MINI-BAG 50 ML IV SCH (22:09)
[2025-07-05 22:57] VITALS: BP 120/74; TEMP 99.1; O2SAT 96
[2025-07-06 00:14] VITALS: BP 114/73; TEMP 98.7; O2SAT 92
[2025-07-06 04:11] VITALS: BP 115/71; TEMP 98.6; O2SAT 97
[2025-07-06 08:30] VITALS: BP 116/76; TEMP 98.3; O2SAT 93
[2025-07-06] MEDS: LanTUS (INSULIN GLARGINE INJ) 1 UNITS/0.01 ML SC SCH (09:30)
[2025-07-06 09:31] VITALS: BP 116/76
[2025-07-06 11:35] VITALS: BP 132/77; TEMP 98.7; O2SAT 100
[2025-07-06 13:11] VITALS: BP 132/77; TEMP 98.7; O2SAT 100
== END 2025-07-06 12:26 | disposition home or self-care (01) | DRG 983 ==
LOC: M OR 11:22 → EDSTATUS 12:45 → M MSPAV 15:22 → UNDODISIN 15:31
PROVIDERS: ADMIT Orthopaedic Surgery; ATTEND Orthopaedic Surgery
PROC: 0YQH0ZZ Repair Right Lower Leg, Open Approach (ICD-10-PCS; principal; 2025-07-05 15:15)
DX: E10.65 Type 1 diabetes mellitus with hyperglycemia (principal); E10.42 Type 1 diabetes mellitus with diabetic polyneuropathy; E10.51 Type 1 diabetes mellitus with diabetic peripheral angiopathy without gangrene; Z88.0 Allergy status to penicillin; Z88.8 Allergy status to other drugs, medicaments and biological substances; Z79.899 Other long term (current) drug therapy; Z79.4 Long term (current) use of insulin; T87.81 Dehiscence of amputation stump; E10.319 Type 1 diabetes mellitus with unspecified diabetic retinopathy without macular edema; M19.90 Unspecified osteoarthritis, unspecified site; K21.9 Gastro-esophageal reflux disease without esophagitis; F32.A Depression, unspecified; F41.9 Anxiety disorder, unspecified; G47.00 Insomnia, unspecified; G89.29 Other chronic pain; Z98.41 Cataract extraction status, right eye; Z98.42 Cataract extraction status, left eye; Y83.5 Amputation of limb(s) as the cause of abnormal reaction of the patient, or of later complication, without mention of misadventure at the time of the procedure

== ENCOUNTER → 2025-07-09 | Outpatient (CLI) | payer MEDICARE, MEDICAID ==
[~2025-07-09] MED LIST changes: +INSU100V3 SQ; -LIDOCAINE 2% 100 MG/5 ML SDV (FOR ANES.) As Ordered ONE; -ONDANSETRON 4MG/2ML VIAL As Ordered ONE
== END ==
LOC: M SOG 10:56
PROVIDERS: ATTEND Physician Assistant
DX: Z47.81 Encounter for orthopedic aftercare following surgical amputation (principal); Z89.511 Acquired absence of right leg below knee

== ENCOUNTER → 2025-08-03 | Outpatient (REF) | payer MEDICARE, MEDICAID ==
[2025-08-03 19:32] LABS: ALT/SGPT 9.0 U/L (7.0-40); AST/SGOT 11.0 U/L (<34); CALCIUM LEVEL 8.6 MG/DL (8.5-10.1); CARBON DIOXIDE LEVEL 21.0 MMOL/L (20-31); CHLORIDE LEVEL 94.0 MMOL/L (98-107); CREATININE FOR GFR 1.53 MG/DL (0.70-1.30); ESTIMATED AVERAGE GLUCOSE 283.0 MG/DL (60-110); GLOMERULAR FILTRATION RATE 57.1 (>60); POTASSIUM SERUM 4.2 MMOL/L (3.5-5.1); SODIUM LEVEL 127.0 MMOL/L (136-145)
== END ==
LOC: M SFHCWOUN 17:18
PROVIDERS: ATTEND Physician Assistant
DX: T87.89 Other complications of amputation stump (principal)

== ENCOUNTER 2025-08-04 00:44 | Inpatient (IN) | payer MEDICARE, MEDICAID ==
[2025-08-04] VITALS (8 sets, daily range): BP systolic 110–135; BP diastolic 64–86; TEMP 98.2–99.4; O2SAT 95–98
[~2025-08-04] VITALS: Ht 180.3 cm; Wt 65.0 kg
[2025-08-04] MEDS: NS (Normal Saline) 0.9% 1,000 ML IV ONE (01:15)
[2025-08-04 01:18] LABS: VENOUS BASE EXCESS -10.9 (-2.0-2.0); VENOUS HCO3 15.2 MMOL/L (23.0-27.0); VENOUS O2 SATURATION 99.2 % (60.0-80.0); VENOUS PARTIAL PRESSURE CO2 35.0 mmHg (38.0-50.0); VENOUS PARTIAL PRESSURE O2 160.6 mmHg (30.0-50.0); VENOUS PH 7.257 UNITS (7.330-7.430); VENOUS STANDARD HCO3 15.9 MMOL/L; VENOUS TOTAL CO2 16.3 MMOL/L (24.0-28.0)
[2025-08-04 01:28] LABS: BASO # 0.0 10^3/uL (0.0-0.2); BASO % 0.3 % (0.0-1.0); EOS # 0.0 10^3/uL (0.0-0.5); EOS % 0.4 % (0.0-3.0); LYMPH # 0.7 10^3/uL (1.5-5.0); LYMPH % 8.1 % (24.0-44.0); MONO # 0.3 10^3/uL (0.0-0.8); MONO % 3.0 % (2.0-8.0); NEUTROPHILS # 7.9 10^3/uL (1.5-8.5); NEUTROPHILS % 88.1 % (36.0-66.0); PLATELET COUNT, AUTOMATED 365 10^3/uL (150-450)
[2025-08-04 01:50] LABS: OSMOLALITY SERUM 347 MOSM/KG (275-295)
[2025-08-04 01:54] LABS: ESTIMATED AVERAGE GLUCOSE 283.0 MG/DL (60-110)
[2025-08-04 02:04] LABS: ACETONE/KETONE > 4.50 MMOL/L (0.02-0.27); ALT/SGPT < 9 U/L (7.0-40); AST/SGOT < 8 U/L (<34); CALCIUM LEVEL 9.3 MG/DL (8.5-10.1); CARBON DIOXIDE LEVEL 15 MMOL/L (20-31); CHLORIDE LEVEL 91 MMOL/L (98-107); CREATININE FOR GFR 1.19 MG/DL (0.70-1.30); GLOMERULAR FILTRATION RATE 77.3 (>60); POTASSIUM SERUM 4.7 MMOL/L (3.5-5.1); SODIUM LEVEL 128 MMOL/L (136-145)
[2025-08-04] MEDS: ONDANSETRON 4MG/2ML VIAL IV ONE (02:06)
[2025-08-04] MEDS ORDERED: INSULIN IV RATE CHANGE DOCUMENTATION ML/HR XX SCH (02:10)
[2025-08-04 02:16] LABS: KETONE, URINE AUTO RFX 1+ mg/dL (NEGATIVE); LEUKOCYTE ESTERASE UR AUTO RFX NEGATIVE (NEGATIVE); NITRITE, URINE AUTO RFX NEGATIVE (NEGATIVE); RBC, URINE AUTO RFX 0 /HPF (0-3); SQUAM EPITHELIAL CELL UR AURFX 0 /HPF (0-6); WBC, URINE AUTO RFX 0 /HPF (0-3)
[2025-08-04] MEDS: INSULIN REGULAR IN 0.9 % NACL 100 UNIT in IV 1 EA IV SCH ×2 (02:30→02:42)
[2025-08-04] MEDS: HumuLIN R (REGULAR) INSULIN (NovoLIN R) **100 U/ML** PER UNIT IV ONE (02:30)
[2025-08-04] MEDS: NS (Normal Saline) 0.9% 1,000 ML IV SCH (02:43)
[2025-08-04 06:16] LABS: VENOUS BASE EXCESS -2.5 (-2.0-2.0); VENOUS HCO3 22.2 MMOL/L (23.0-27.0); VENOUS O2 SATURATION 99.5 % (60.0-80.0); VENOUS PARTIAL PRESSURE CO2 37.8 mmHg (38.0-50.0); VENOUS PARTIAL PRESSURE O2 168.3 mmHg (30.0-50.0); VENOUS PH 7.386 UNITS (7.330-7.430); VENOUS STANDARD HCO3 22.4 MMOL/L; VENOUS TOTAL CO2 23.3 MMOL/L (24.0-28.0)
[2025-08-04] MEDS: ONDANSETRON 4MG/2ML VIAL IV PRN (06:46)
[2025-08-04 06:55] LABS: CALCIUM LEVEL 9.5 MG/DL (8.5-10.1); CARBON DIOXIDE LEVEL 22.0 MMOL/L (20-31); CHLORIDE LEVEL 101.0 MMOL/L (98-107); CREATININE FOR GFR 1.13 MG/DL (0.70-1.30); GLOMERULAR FILTRATION RATE 82.2 (>60); MAGNESIUM LEVEL 2.0 MG/DL (1.8-2.4); PHOSPHORUS LEVEL 2.5 MG/DL (2.5-4.9); POTASSIUM SERUM 4.4 MMOL/L (3.5-5.1); SODIUM LEVEL 138.0 MMOL/L (136-145)
[2025-08-04] MEDS: PERCOCET 5MG/325MG TAB PO PRN (07:05)
[2025-08-04] MEDS: INSULIN IV RATE CHANGE DOCUMENTATION ML/HR XX SCH (07:06)
[2025-08-04] MEDS ORDERED: HOME MED LIST COMPLETE! XX SCH (07:35)
[2025-08-04] MEDS: KCL 20MEQ IN D5/0.45NS 1000ML 1,000 ML IV SCH (09:29)
[2025-08-04 10:32] LABS: VENOUS BASE EXCESS 1.4 (-2.0-2.0); VENOUS HCO3 26.2 MMOL/L (23.0-27.0); VENOUS O2 SATURATION 99.2 % (60.0-80.0); VENOUS PARTIAL PRESSURE CO2 42.1 mmHg (38.0-50.0); VENOUS PARTIAL PRESSURE O2 231.8 mmHg (30.0-50.0); VENOUS PH 7.412 UNITS (7.330-7.430); VENOUS STANDARD HCO3 25.8 MMOL/L; VENOUS TOTAL CO2 27.5 MMOL/L (24.0-28.0)
[2025-08-04 11:10] LABS: CALCIUM LEVEL 9.3 MG/DL (8.5-10.1); CARBON DIOXIDE LEVEL 26.0 MMOL/L (20-31); CHLORIDE LEVEL 107.0 MMOL/L (98-107); CREATININE FOR GFR 1.14 MG/DL (0.70-1.30); GLOMERULAR FILTRATION RATE 81.3 (>60); PHOSPHORUS LEVEL 1.6 MG/DL (2.5-4.9); POTASSIUM SERUM 4.3 MMOL/L (3.5-5.1); SODIUM LEVEL 143.0 MMOL/L (136-145)
[2025-08-04 12:32] LABS: OSMOLALITY SERUM 313.0 MOSM/KG (275-295)
[2025-08-04] MEDS: LanTUS (INSULIN GLARGINE INJ) 1 UNITS/0.01 ML SC ONE (12:43)
[2025-08-04 14:34] LABS: VENOUS BASE EXCESS -2.9 (-2.0-2.0); VENOUS HCO3 21.7 MMOL/L (23.0-27.0); VENOUS O2 SATURATION 98.2 % (60.0-80.0); VENOUS PARTIAL PRESSURE CO2 37.1 mmHg (38.0-50.0); VENOUS PARTIAL PRESSURE O2 114.2 mmHg (30.0-50.0); VENOUS PH 7.385 UNITS (7.330-7.430); VENOUS STANDARD HCO3 22.0 MMOL/L; VENOUS TOTAL CO2 22.8 MMOL/L (24.0-28.0)
[2025-08-04] MEDS ORDERED: GLUCAGON INJ 1 MG VIAL SC PRN (14:50)
[2025-08-04 15:20] LABS: CALCIUM LEVEL 8.9 MG/DL (8.5-10.1); CARBON DIOXIDE LEVEL 24.0 MMOL/L (20-31); CHLORIDE LEVEL 104.0 MMOL/L (98-107); CREATININE FOR GFR 1.18 MG/DL (0.70-1.30); GLOMERULAR FILTRATION RATE 78.0 (>60); PHOSPHORUS LEVEL 2.8 MG/DL (2.5-4.9); POTASSIUM SERUM 4.5 MMOL/L (3.5-5.1); SODIUM LEVEL 140.0 MMOL/L (136-145)
[2025-08-04] MEDS: acetaZOLAMIDE 250 MG TAB PO SCH (18:00)
[2025-08-04] MEDS: INSULIN LISPRO (NovoLOG) PER UNIT SC SCH ×3 (18:00→20:38)
[2025-08-04] MEDS: FAMOTIDINE 20 MG TAB PO SCH (20:47)
[2025-08-04] MEDS: VENLAFAXINE **XR** 75MG CAPSULE PO SCH (20:47)
[2025-08-04] MEDS: PREGABALIN 75 MG CAP PO SCH (20:47)
[2025-08-04] MEDS: LanTUS (INSULIN GLARGINE INJ) 1 UNITS/0.01 ML SC SCH (20:47)
[2025-08-04] MEDS ORDERED: DORZOLAMIDE/TIMOLOL 10 ML OPHTHALMIC SOLN OD SCH (21:00)
[2025-08-05 04:13] VITALS: BP 128/83; TEMP 98.2; O2SAT 96
[2025-08-05 05:46] LABS: BASO # 0.0 10^3/uL (0.0-0.2); BASO % 0.6 % (0.0-1.0); EOS # 0.1 10^3/uL (0.0-0.5); EOS % 2.3 % (0.0-3.0); LYMPH # 1.2 10^3/uL (1.5-5.0); LYMPH % 24.0 % (24.0-44.0); MONO # 0.4 10^3/uL (0.0-0.8); MONO % 7.2 % (2.0-8.0); NEUTROPHILS # 3.2 10^3/uL (1.5-8.5); NEUTROPHILS % 65.5 % (36.0-66.0); PLATELET COUNT, AUTOMATED 322 10^3/uL (150-450)
[2025-08-05 06:08] LABS: CALCIUM LEVEL 9.2 MG/DL (8.5-10.1); CARBON DIOXIDE LEVEL 24 MMOL/L (20-31); CHLORIDE LEVEL 103 MMOL/L (98-107); CREATININE FOR GFR 0.90 MG/DL (0.70-1.30); GLOMERULAR FILTRATION RATE > 90.0 (>60); POTASSIUM SERUM 3.9 MMOL/L (3.5-5.1); SODIUM LEVEL 138 MMOL/L (136-145)
[2025-08-05] MEDS: DOCUSATE SODIUM 100 MG CAPSULE PO SCH (08:36)
[2025-08-05] MEDS ORDERED: GLUC1TES2 XX (10:22)
[2025-08-05] MEDS ORDERED: LANTINJ4 SC ×2 (10:22)
[2025-08-05] MEDS ORDERED: PEN-308 SC (10:22)
[2025-08-06 03:45] VITALS: BP 104/62; TEMP 98.2; O2SAT 94
[2025-08-06] MEDS: INSULIN LISPRO (NovoLOG) PER UNIT SC SCH ×3 (07:30→20:45)
[2025-08-06] MEDS: LanTUS (INSULIN GLARGINE INJ) 1 UNITS/0.01 ML SC SCH (10:16)
[2025-08-06] MEDS ORDERED: LANTINJ4 SC (11:13)
[2025-08-06] MEDS: DORZOLAMIDE/TIMOLOL 10 ML OPHTHALMIC SOLN OD SCH (11:35)
[2025-08-06] MEDS: GLUCOSE 4 GM CHEW PO PRN (15:22)
[2025-08-06] MEDS: DEXTROSE 50% 50 ML SYRINGE IV PRN (15:29)
[2025-08-07 04:10] VITALS: BP 102/69; TEMP 98.4; O2SAT 97
[2025-08-07 06:49] LABS: CALCIUM LEVEL 8.6 MG/DL (8.5-10.1); CARBON DIOXIDE LEVEL 22 MMOL/L (20-31); CHLORIDE LEVEL 108 MMOL/L (98-107); CREATININE FOR GFR 0.87 MG/DL (0.70-1.30); GLOMERULAR FILTRATION RATE > 90.0 (>60); POTASSIUM SERUM 4.1 MMOL/L (3.5-5.1); SODIUM LEVEL 140 MMOL/L (136-145)
[2025-08-07] MEDS ORDERED: METOCLOPRAMIDE 5 MG TAB PO PRN (11:50)
[2025-08-07] MEDS: LanTUS (INSULIN GLARGINE INJ) 1 UNITS/0.01 ML SC SCH (12:08)
[2025-08-07 12:15] VITALS: BP_SYST 112; BP_SYST 135; BP_DIAS 69; TEMP 98.6; O2SAT 92
[2025-08-07] MEDS ORDERED: LanTUS (INSULIN GLARGINE INJ) 1 UNITS/0.01 ML SC SCH (21:00)
[2025-08-08 04:29] VITALS: BP 111/70; TEMP 97.5; O2SAT 99
[2025-08-08 06:12] LABS: PLATELET COUNT, AUTOMATED 305 10^3/uL (150-450)
[2025-08-08 06:40] LABS: CALCIUM LEVEL 8.8 MG/DL (8.5-10.1); CARBON DIOXIDE LEVEL 22 MMOL/L (20-31); CHLORIDE LEVEL 111 MMOL/L (98-107); CREATININE FOR GFR 0.96 MG/DL (0.70-1.30); GLOMERULAR FILTRATION RATE > 90.0 (>60); POTASSIUM SERUM 4.5 MMOL/L (3.5-5.1); SODIUM LEVEL 140 MMOL/L (136-145)
[2025-08-08] MEDS ORDERED: LANTINJ4 SC (08:30)
[2025-08-08] MEDS: LanTUS (INSULIN GLARGINE INJ) 1 UNITS/0.01 ML SC SCH (08:47)
[2025-08-08 12:51] VITALS: BP 116/67
== END 2025-08-08 15:29 | disposition home or self-care (01) | DRG 638 ==
LOC: EDBD 00:44 → M ED 00:44 → M ED INP 02:36 → M ICU 04:20 → M MSPAV 18:16
PROVIDERS: ADMIT Student in an Organized Health Care Education/Training Program; ATTEND Student in an Organized Health Care Education/Training Program
DX: E10.10 Type 1 diabetes mellitus with ketoacidosis without coma (principal); E87.1 Hypo-osmolality and hyponatremia; N17.9 Acute kidney failure, unspecified; K21.9 Gastro-esophageal reflux disease without esophagitis; D64.9 Anemia, unspecified; F32.A Depression, unspecified; E10.319 Type 1 diabetes mellitus with unspecified diabetic retinopathy without macular edema; E10.42 Type 1 diabetes mellitus with diabetic polyneuropathy; I10 Essential (primary) hypertension; Z79.4 Long term (current) use of insulin; Z89.512 Acquired absence of left leg below knee; Z91.148 Patient's other noncompliance with medication regimen for other reason; Z88.0 Allergy status to penicillin; Z88.8 Allergy status to other drugs, medicaments and biological substances; Z79.899 Other long term (current) drug therapy; Z89.511 Acquired absence of right leg below knee